=== PATIENT | female | born 1960 | race Caucasian/White ===

== ENCOUNTER → 2017-12-30 10:37 | Outpatient (CLI) | payer MEDICAID, SELFPAY ==
--- NOTE | 2017-12-30 10:40 | BI_ITS ---
MAMMOGRAPHY - BILATERAL SCREENING REASON FOR EXAM: Female, 57 years old. Routine annual screening examination. PERTINENT HISTORY: Sister with breast cancer. TECHNIQUE: Digital bilateral breast norman (3D mammographic acquisition) in the CC and MLO projections. 2-D mediolateral oblique (MLO) and craniocaudad (CC) views of both breasts were obtained. CAD: Full Field Digital Mammography with Computer Added Detection was performed. COMPARISON: Comparison is made with prior study dated October 09, 2016 and October 02, 2015. FINDINGS: Breast Composition: The breasts are almost entirely fatty. There are no dominant masses or suspicious calcifications. No other significant abnormalities are identified. There has been no significant change since the prior study. BI/SCREENING MAMM (CAD), BILAT IMPRESSION: Stable bilateral screening mammogram. Yearly follow-up mammogram recommended. (A) ASSESSMENT CATEGORY: BIRADS Category 1: Negative. A letter regarding these results will be sent to the patient by the facility within 30 days. Approximately 10% of breast cancers are not detected by mammography. A normal mammogram should not delay biopsy of a clinically suspicious abnormality. [id number] Electronically Signed: David Bailon MD at 12:09 EDT Tel [phone], Service support ,
== END ==
PROVIDERS: Family Provider Family Medicine; PCP Family Medicine; Visit Provider Family Medicine
DX: Z12.31 Encounter for screening mammogram for malignant neoplasm of breast (principal)
CPT/HCPCS: 77063; 77067

== ENCOUNTER 2018-04-21 10:45 | Outpatient (RCR) | payer MEDICAID, SELFPAY ==
[2018-04-07 10:24] VITALS: BP 118/87; PULSE 86; RESP 20; TEMP 35.9; BMI 27.8
--- NOTE | 2018-04-07 12:43 | PCM.WC.HP ---
(1) Ulcer of right lower extremity with fat layer exposed Status: Acute Current Visit: Yes Code(s): L97.912 - Non-pressure chronic ulcer of unspecified part of right lower leg with fat layer exposed (2) Pain in right lower leg Status: Acute Current Visit: Yes Code(s): M79.661 - Pain in right lower leg (3) PVD (peripheral vascular disease) Status: Suspected Current Visit: Yes Code(s): I73.9 - Peripheral vascular disease, unspecified (4) Edema, lower extremity Status: Acute Current Visit: Yes Code(s): R60.0 - Localized edema (5) Delayed wound healing Status: Acute Current Visit: Yes Code(s): T14.8XXD - Other injury of unspecified body region, subsequent encounter History of Present Illness Date of Service: 04/07/18 Chief Complaint: Right anterior lower leg ulcer/laceration History of Wound: This 57-year-old female was referred to the wound healing center by her primary care doctor for a nonhealing ulcer/laceration to the right anterior lower leg. Patient says this started approximately 3 weeks ago when she shut the car door and it created a laceration to her right lower leg. She said she tried to dress the area with Neosporin and bandages. She continued to notice the area not healing as well as some slight redness and she made an appointment to see her primary care doctor. She was started on antibiotics and has since finished prescriptions for Bactrim and cephalexin. Patient is also been using mupirocin topically to the area. She says that the area is not as red as it used to be, but that the area is still painful. She denies any purulence or extending cellulitis. She also denies any feeling of nausea, vomiting, fever, chills. Past Medical History Allergies/Adverse Reactions: Allergies bee venom protein (honey bee) Allergy (Verified 04/07/18 10:56) Shortness of breath naproxen [From Aleve] Adverse Reaction (Verified 04/07/18 10:56) Rash Home Medications: Ambulatory Orders Medication Instructions Recorded Albuterol IH (ProAir) [Proair Hfa 2 puff INHALATION Q4H PRN PRN 04/07/18 (SP)Vent Pts] Amlodipine [Norvasc] 5 mg PO DAILY 04/07/18 Aspirin E.C. [Ecotrin] 81 mg PO DAILY@0800 04/07/18 Atorvastatin Calcium [Lipitor] 10 mg PO QHS 04/07/18 Baclofen 20 mg PO 04/07/18 Benazepril HCl [Lotensin] 20 mg PO 04/07/18 Bupropion HCl 75 mg PO 04/07/18 Epinephrine [Epi Pen] 0.3 mg 04/07/18 Gabapentin [Neurontin] 400 mg PO 04/07/18 Ibuprofen 800 mg PO 04/07/18 Mupirocin [Bactroban] 1 applic TOPICAL TID 04/07/18 Omeprazole [Prilosec] 20 mg PO DAILY 04/07/18 Oxybutynin [Ditropan] 5 mg PO DAILY 04/07/18 Ropinirole HCl [Requip] BID 04/07/18 Symbicort 160/4.5 Mcg Inhaler (SP) 04/07/18 Tiotropium [place] [Spiriva] 18 mcg IH 04/07/18 Smoking Status: Current every day smoker Review of Systems Constitutional: Denies: Chills, Fever, Weight Change Cardiovascular: Denies: Chest Pain, Palpitations Respiratory: Denies: Cough, Shortness of Breath Gastrointestinal: Denies: Diarrhea, Nausea, Vomiting Musculoskeletal: Reports: Leg Pain Skin: Reports: Wounds - Physical Exam Vital Signs Temp Pulse Resp BP 96.6 F L 86 20 H 118/87 H 04/07/18 10:24 04/07/18 10:24 04/07/18 10:24 04/07/18 10:24 General: Alert, Oriented x3, Cooperative, No apparent distress Extremities: No cyanosis, Capillary Refill Less than 3 Seconds - To the distal digits of the right foot, No Calf Tenderness - Negative Hyun and Bloom sign, Diminished Peripheral Pulses - DP pulses nonpalpable and PT pulses palpable, Edema - Minor lower extremity edema Skin: Ulcer/ Wound - Ulcer with fat layer exposed to the right anterior lower leg. Measurements are noted below. The base is a mixture of necrotic tissue/eschar, fibrin, adherent slough, granular tissue. There is no purulence, no extending cellulitis, no significant increase in warmth, no malodor, no probing to bone, no tracking, no undermining. Wound Measurements and Assessment WC - Nurse 1 - General Ulcer Measurement Start: 04/07/18 10:21 Freq: Status: Active Protocol: Activity Type Activity Date Activity User E-Sign Co-Sign Detail Recorded Client Recorded Date Recorded By Document 04/07/18 10:24 DL [id number] 04/07/18 10:50 DL 04/07/18 10:24 Wound Center Nurse 1 [Ulcer Assessment] #1 R Rubin -Current Size (cm) - Length 3.7 -Current Size (cm) - Width 3.1 -Current Size (cm) - Depth 0.2 -Total Square Cm 11.47 -Photo Taken Yes -Epithelialization None Present -Classification - Thickness Full Thickness without Exposed Support Structure -Exudate Amt Small (1-33%) -Exudate Type Serosanguineous -Wound Margin Thickened -Granulation Amt None Present (0 %) -Necrosis Amt Large (67-100%) -Necrotic Tissue Type Eschar -Structure Exposed N/A -Texture (Vivian-wound Skin Appearance) Localized Edema Scarring -Moisture (Vivian-wound Skin Appearance Dry/Scaly ) -Color (Vivian-wound Skin Appearance) Erythema -Temperature (Vivian-wound Skin No Abnormality Appearance) (Pt Warm) -Tenderness on Palpation (Vivian-wound Yes Skin Appearance) -Ulcer Cleansing Wound Cleanser -Foul Odor after Cleansing No -Anesthetic Used 5% Lidocaine Gel [Edema Assessment] -Right Calf (cm) 32.5 -Right Ankle (cm) 19 -Left Calf (cm) 33.8 -Left Ankle (cm) 18.5 WC - Nurse 2 - General Ulcer CM Notes Start: 04/07/18 10:21 Freq: Status: Active Protocol: Activity Type Activity Date Activity User E-Sign Co-Sign Detail Recorded Client Recorded Date Recorded By Document 04/07/18 11:20 DV [id number] 04/07/18 11:36 DV 04/07/18 11:20 Wound Center Nurse 2 [Procedure/Treatment] #1 R Rubin -Time 11:21 -Correct Patient Yes -Correct Side, Site, Position Yes -Correct Procedure Yes -Procedure Performed Yes -Type of Procedure Debridement -Clinical Debridement Subcutaneous -Post Debridement Size (cm) - Length 4.0 -Post Debridement Size (cm) - Width 3.0 -Post Debridement Size (cm) - Depth 0.2 -Total Square Cm 12.00 -Wound/Ulcer Outcome Not Healed -Ulcer Cleansing Rinsed/ Irrigated with Saline -Foul Odor after Cleansing No -Bleeding Controlled with Pressure -Treatment Response Procedure Tolerated Well [See Physician Procedure note for Specifics] Pain Scale: 0-10 Numeric [Pain] -Is Patient Pain Free? Yes Musculoskeletal: Tenderness - With manipulation of ulcer site Neurological: Sensory exam intact to light touch and pain Psych/Mental Status: Normal Affect, Appropriate Debridement Note Post-Debridement Measurements/Treatment WC - Nurse 2 - General Ulcer CM Notes Start: 04/07/18 10:21 Freq: Status: Active Protocol: Activity Type Activity Date Activity User E-Sign Co-Sign Detail Recorded Client Recorded Date Recorded By Document 04/07/18 11:20 DV [id number] 04/07/18 11:36 DV 04/07/18 11:20 Wound Center Nurse 2 #1 R Rubin -Time 11:21 -Correct Patient Yes -Correct Side, Site, Position Yes -Correct Procedure Yes -Procedure Performed Yes -Type of Procedure Debridement -Clinical Debridement Subcutaneous -Post Debridement Size (cm) - Length 4.0 -Post Debridement Size (cm) - Width 3.0 -Post Debridement Size (cm) - Depth 0.2 -Total Square Cm 12.00 -Wound/Ulcer Outcome Not Healed -Ulcer Cleansing Rinsed/ Irrigated with Saline -Foul Odor after Cleansing No -Bleeding Controlled with Pressure -Treatment Response Procedure Tolerated Well Pain Scale: 0-10 Numeric Is Patient Pain Free? Yes Wound debrided: Right anterior lower leg Laterality: Right Type of Debridement: Excisional debridement Anesthesia Used: 4% Lidocaine Solution, - - 5 cc 1% lidocaine with epinephrine injected Depth: in the subcutaneous layer Percentage of wound debrided: 100 Instrument Used: 7mm curette, #15 blade, Forceps Tissue Removed: Necrotic tissue/eschar, adherent slough, fibrin Severity: Fat Layer Exposed Amount of bleeding with debridement: Mild Bleeding Controlled with: Pressure Patient tolerated procedure well Assessment/Plan Active Problems Ulcer of right lower extremity with fat layer exposed (Acute) Pain in right lower leg (Acute) Edema, lower extremity (Acute) Delayed wound healing (Acute) Assessment: Ulcer right anterior lower leg. Pain right lower leg. Edema lower extremity. Other comorbidities Plan: Initial patient examination and evaluation was performed. A subcutaneous debridement was performed as noted in the clinical panel. Once complete the ulcer site was carefully cleansed with normal sterile saline, and then cultures were taken and sent for aerobic, anaerobic, and MRSA PCR evaluation. Next, the ulcer site was dressed with Aquacel Ag, followed by dry sterile dressing and Tubigrip for compression. Patient is to change her dressing in this manner daily. Keeping pressure off of the ulcer site was discussed lizett in great detail. Baseline lab work was ordered today, including CBC with differential, CMP, prealbumin, hemoglobin A1c. LEAS and venous Doppler exams were also ordered. These results will be reviewed at the patient's follow-up visit. Dressing supplies were ordered for this patient. I also recommend nutritional supplementation with a high-protein diet in order to optimize ulcer healing potential. The patient was educated on all signs and symptoms of local and systemic infection and she is to go to the emergency room immediately should she notice any of these. All questions were answered to the patient's satisfaction. Smoking cessation was discussed. The patient will follow-up in clinic in 1 week to check on progress, or sooner if needed.
[2018-04-07 13:12] LABS: Absolute Lymphocyte Count 1.41 X10^3/ul (0.83-4.51); Absolute Neutrophil Count 3.6 X10^3/uL (2.0-7.7); Basophil# 0.02 X10^3/uL; Basophil% 0.4 % (0-1); Eosinophil# 0.09 X10^3/uL; Eosinophils% 1.6 % (0-5); Hematocrit 49.8 % (37-47); Hemoglobin 16.7 g/dl (12.0-15.0); Lymphocyte # 1.41 X10^3/ul (4.0); Lymphocyte % 25.1 % (19-41); Mean Corp Hgb Conc 33.5 g/gl (32-36); Mean Corpuscular Hgb 32.2 pg (27.0-32.0); Mean Corpuscular Volume 96.1 fL (81-99); Mean Platelet Vol. 11.3 fl (6.2-12.0); Monocyte# 0.52 X10^3/uL; Monocyte% 9.3 % (0-10); Neutrophil # 3.58 X10^3/uL (2.7-7.7); Neutrophil % 63.6 % (47-70); Platelet Count 165 K/mm3 (150-450); RBC Distribution Width CV 14.4 % (11.6-14.6); RBC Distribution Width SD 50.7 fl (35.1-43.9); Red Blood Count 5.18 M/mm3 (4.2-5.4); White Blood Count 5.6 K/mm3 (4.4-11.0)
[2018-04-07 13:13] LABS: POSITIVE COUNT NO; POSITIVE DIFFERENTIAL NO; POSITIVE MORPHOLOGY NO
[2018-04-07 13:32] LABS: AST(SGOT) 17 U/L (15-37); Alanine Aminotransfer ALT/SGPT 25 U/L (13-56); Albumin, Serum 3.6 g/dL (3.2-5.0); Alkaline Phosphatase 79 U/L (45-117); Anion Gap 9 (5-15); BUN 13 mg/dL (7-18); BUN/Creat Ratio 13.6 RATIO (10-20); Chloride 102 mmol/L (98-107); Creatinine, Serum 0.96 mg/dL (0.55-1.02); EST Glomerular Filtration Rate 64 mL/min (>60); Est Glom Filt Rate - Afr Amer 78 mL/min (>60); Globulin 3.5 g/dL (2.2-4.2); Glucose 78 mg/dL (74-106); Potassium 4.4 mmol/L (3.5-5.1); Prealbumin 21.4 mg/dL (20.0-40.0); Protein, Total 7.1 g/dL (6.4-8.2); Sodium Level 137 mmol/L (136-145)
[2018-04-07 13:33] LABS: Hemoglobin A1c 5.5 % (4.2-6.3)
[2018-04-07 16:25] LABS: M R Staph aureus DNA By PCR Negative (Negative); Probe Check PASS; Specimen Processing Control PASS; Staph aureus DNA By PCR NEGATIVE (Negative)
--- NOTE | 2018-04-14 13:34 | PN.PCM_ITS ---
(1) Ulcer of right lower extremity with fat layer exposed Status: Acute Current Visit: Yes Code(s): L97.912 - Non-pressure chronic ulcer of unspecified part of right lower leg with fat layer exposed (2) Pain in right lower leg Status: Acute Current Visit: Yes Code(s): M79.661 - Pain in right lower leg (3) PVD (peripheral vascular disease) Status: Suspected Current Visit: Yes Code(s): I73.9 - Peripheral vascular disease, unspecified (4) Edema, lower extremity Status: Acute Current Visit: Yes Code(s): R60.0 - Localized edema (5) Delayed wound healing Status: Acute Current Visit: Yes Code(s): T14.8XXD - Other injury of unspecified body region, subsequent encounter Type of Wound Chief Complaint: Right anterior lower leg ulcer/laceration History of Wound: This 57-year-old female was referred to the wound healing center by her primary care doctor for a nonhealing ulcer/laceration to the right anterior lower leg. Patient says this started approximately 3 weeks ago when she shut the car door and it created a laceration to her right lower leg. She said she tried to dress the area with Neosporin and bandages. She continued to notice the area not healing as well as some slight redness and she made an appointment to see her primary care doctor. She was started on antibiotics and has since finished prescriptions for Bactrim and cephalexin. Patient is also been using mupirocin topically to the area. She says that the area is not as red as it used to be, but that the area is still painful. She denies any purulence or extending cellulitis. She also denies any feeling of nausea, vomiting, fever, chills. Progress of Wound: Slight improvement noted noted week. Has been changing dressing daily. Denies any signs of infection. Denies nausea, vomiting, fever, or chills. - Physical Exam Vital Signs Temp Pulse Resp BP 96.6 F L 86 20 H 118/87 H 04/07/18 10:24 04/07/18 10:24 04/07/18 10:24 04/07/18 10:24 General: Alert, Oriented x3, Cooperative, No apparent distress Extremities: No cyanosis - Negative Hyun and Bloom sign, Capillary Refill Less than 3 Seconds, No Calf Tenderness, Diminished Peripheral Pulses - DP pulses nonpalpable and PT pulses palpable bilateral, Edema - Slight lower extremity edema Skin: Ulcer/ Wound - Ulcer with fat layer exposed to the right anterior lower leg. Measurements are noted below. The base is a mixture of fibrin, adherent slough, granular tissue, and some surrounding hyperkeratotic tissue. There is no purulence, no extending cellulitis, no significant increase in warmth, no malodor, no probing to bone, no tracking, no undermining. Wound Measurements and Assessment WC - Nurse 2 - General Ulcer CM Notes Start: 04/07/18 10:21 Freq: Status: Active Protocol: Activity Type Activity Date Activity User E-Sign Co-Sign Detail Recorded Client Recorded Date Recorded By Document 04/14/18 11:08 DV [id number] 04/14/18 11:14 DV 04/14/18 11:08 Wound Center Nurse 2 [Procedure/Treatment] #1 R Rubin -Time 11:11 -Correct Patient Yes -Correct Side, Site, Position Yes -Correct Procedure Yes -Procedure Performed Yes -Type of Procedure Debridement -Clinical Debridement Subcutaneous -Post Debridement Size (cm) - Length 3.5 -Post Debridement Size (cm) - Width 2.8 -Post Debridement Size (cm) - Depth 0.2 -Total Square Cm 9.80 -Wound/Ulcer Outcome Not Healed -Ulcer Cleansing Rinsed/ Irrigated with Saline -Foul Odor after Cleansing No -Bioengineered Tissue No -Bleeding Controlled with Pressure -Treatment Response Procedure Tolerated Well [See Physician Procedure note for Specifics] Pain Scale: 0-10 Numeric [Pain] -Is Patient Pain Free? Yes Musculoskeletal: Tenderness - With manipulation of ulcer site Neurological: Sensory exam intact to light touch and pain Psych/Mental Status: Normal Affect, Appropriate Debridement Note Post-Debridement Measurements/Treatment - Nurse 2 - General Ulcer CM Notes Start: 04/07/18 10:21 Freq: Status: Active Protocol: Activity Type Activity Date Activity User E-Sign Co-Sign Detail Recorded Client Recorded Date Recorded By Document 04/07/18 11:20 DV [id number] 04/07/18 11:36 DV Document 04/14/18 11:08 DV [id number] 04/14/18 11:14 DV 04/07/18 04/14/18 11:20 11:08 Wound Center Nurse 2 #1 R Rubin -Time 11:21 11:11 -Correct Patient Yes Yes -Correct Side, Site, Position Yes Yes -Correct Procedure Yes Yes -Procedure Performed Yes Yes -Type of Procedure Debridement Debridement -Clinical Debridement Subcutaneous Subcutaneous -Post Debridement Size (cm) - Length 4.0 3.5 -Post Debridement Size (cm) - Width 3.0 2.8 -Post Debridement Size (cm) - Depth 0.2 0.2 -Total Square Cm 12.00 9.80 -Wound/Ulcer Outcome Not Healed Not Healed -Ulcer Cleansing Rinsed/ Rinsed/ Irrigated with Irrigated with Saline Saline -Foul Odor after Cleansing No No -Bioengineered Tissue No -Bleeding Controlled with Pressure Pressure -Treatment Response Procedure Procedure Tolerated Well Tolerated Well Pain Scale: 0-10 Numeric Is Patient Pain Free? Yes Yes Wound debrided: Right anterior lower leg Laterality: Right Type of Debridement: Excisional debridement Anesthesia Used: 4% Lidocaine Solution Depth: in the subcutaneous layer Percentage of wound debrided: 100 Instrument Used: 7mm curette Tissue Removed: adherent slough, fibrin, hyperkeratotic tissue Severity: Fat Layer Exposed Amount of bleeding with debridement: Mild Bleeding Controlled with: Pressure Patient tolerated procedure well Assessment/Plan Active Problems Ulcer of right lower extremity with fat layer exposed (Acute) Pain in right lower leg (Acute) Edema, lower extremity (Acute) Delayed wound healing (Acute) Assessment: Ulcer right anterior lower leg. Pain right lower leg. Edema lower extremity. Other comorbidities Plan: Patient was examined and evaluated again today. A subcutaneous debridement was performed as noted in the clinical panel. Once complete the ulcer site was carefully cleansed with normal sterile saline, and then dressed with Aquacel Ag, followed by dry sterile dressing and Tubigrip for compression. Patient is to change her dressing in this manner daily. Her culture results were reviewed prior to her visit today. Keeping pressure off of the ulcer site was discussed lizett in great detail. Baseline lab work including CBC with differential, CMP, prealbumin, hemoglobin A1c was reviewed prior to patient's visit. LEAS and venous Doppler exams were also ordered last week and will be completed on 18 April. These results will be reviewed at the patient's follow-up visit. I also recommend nutritional supplementation with a high- protein diet in order to optimize ulcer healing potential. The patient was educated on all signs and symptoms of local and systemic infection and she is to go to the emergency room immediately should she notice any of these. All questions were answered to the patient's satisfaction. Smoking cessation was discussed. The patient will follow-up in clinic in 1 week to check on progress, or sooner if needed.
--- NOTE | 2018-04-18 09:54 | VDLE_ITS ---
[id number] VL^VDU^Venous Duplex US - Ramirez Extrem [id number] [facility] Venous Doppler [address] [place], [place] [id number] Ordering Physician: Deacon Rodriguez TAG_ENDED TAG_START Name: CRUZ CLEMENS Study Date: 04/18/2018 10:02 AM Patient Location: [facility] : 1960 Gender: Female Age: 57 yrs TAG_ENDED Reason For Study: Rt jurado ulcer RIGHT LEFT CFV is compressible, spontaneous, phasic, CFV is compressible, spontaneous, phasic, competent and demonstrates normal competent, and demonstrates normal augmentation. augmentation. FV is compressible, spontaneous, phasic, FV is compressible, spontaneous, phasic, competent and demonstrates normal competent and demonstrates normal augmentation. augmentation. POP V is compressible, spontaneous, phasic, POP V is compressible, spontaneous, phasic, competent and demonstrates normal competent and demonstrates normal augmentation. augmentation. T/P Trunk is compressible. T/P Trunk is compressible. PTV is compressible. PTV is compressible. RT PerV is compressible. LT PerV is compressible. SFJ is competent. SFJ is competent. GSV is competent throughout. GSV is INCOMPETENT thoughout for greater than SSV is competent. 0.5 seconds with a diameter of 0.20 x 0.20 Procedure cm. Exam performed in department. SSV is INCOMPETENT for greater than 0.5 A preliminary report was called and/or faxed seconds with a diameter of 0.19 x 0.25 cm. to WC. <> Interpretation Summary Deep veins of the lower extremities are bilaterally patent and compressible segmentally. There is no evidence of deep vein thrombosis on either side. Valvular competence appears intact within the proximal deep venous systems bilaterally. The greater saphenous veins appear bilaterally patent and compressible segmentally. Sapheno-femoral junctions are bilaterally competent . The right greater saphenous vein appears segmentally competent. The left greater saphenous vein appears segmentally incompetent. The right small saphenous vein is patent and competent. The left small saphenous vein is patent and incompetent. TAG_[facility] TAG_ENDED Ordering Physician: Deacon Rodriguez Referring Physician: Tex Martínez Performed By: Alena Brooks RVT and Student
[2018-04-21 10:38] VITALS: BP 132/94; PULSE 99; RESP 16; TEMP 36.3; BMI 27.8
--- NOTE | 2018-04-21 12:57 | PN.PCM_ITS ---
(1) Ulcer of right lower extremity with fat layer exposed Status: Acute Current Visit: Yes Code(s): L97.912 - Non-pressure chronic ulcer of unspecified part of right lower leg with fat layer exposed (2) Pain in right lower leg Status: Acute Current Visit: Yes Code(s): M79.661 - Pain in right lower leg (3) PVD (peripheral vascular disease) Status: Suspected Current Visit: Yes Code(s): I73.9 - Peripheral vascular disease, unspecified (4) Edema, lower extremity Status: Acute Current Visit: Yes Code(s): R60.0 - Localized edema (5) Delayed wound healing Status: Acute Current Visit: Yes Code(s): T14.8XXD - Other injury of unspecified body region, subsequent encounter Type of Wound Chief Complaint: Right anterior lower leg ulcer/laceration History of Wound: This 57-year-old female was referred to the wound healing center by her primary care doctor for a nonhealing ulcer/laceration to the right anterior lower leg. Patient says this started approximately 3 weeks ago when she shut the car door and it created a laceration to her right lower leg. She said she tried to dress the area with Neosporin and bandages. She continued to notice the area not healing as well as some slight redness and she made an appointment to see her primary care doctor. She was started on antibiotics and has since finished prescriptions for Bactrim and cephalexin. Patient is also been using mupirocin topically to the area. She says that the area is not as red as it used to be, but that the area is still painful. She denies any purulence or extending cellulitis. She also denies any feeling of nausea, vomiting, fever, chills. Progress of Wound: Improving. Has been changing dressing daily. Denies any signs of infection. Denies nausea, vomiting, fever, or chills. - Physical Exam Vital Signs Temp Pulse Resp BP 97.3 F L 99 16 132/94 H 04/21/18 10:38 04/21/18 10:38 04/21/18 10:38 04/21/18 10:38 General: Alert, Oriented x3, Cooperative, No apparent distress Extremities: Capillary Refill Less than 3 Seconds, No Calf Tenderness - Negative Hyun and Bloom sign, Diminished Peripheral Pulses - DP pulses nonpalpable bilateral and PT pulses palpable bilateral, Edema - Slight lower extremity edema Skin: Ulcer/ Wound - Ulcer with fat layer exposed to the right anterior lower leg. Measurements are noted below. The base is a mixture of fibrin, adherent slough, granular tissue, and some surrounding hyperkeratotic tissue. There is no purulence, no extending cellulitis, no significant increase in warmth, no malodor, no probing to bone, no tracking, no undermining. Wound Measurements and Assessment WC - Nurse 1 - General Ulcer Measurement Start: 04/07/18 10:21 Freq: Status: Active Protocol: Activity Type Activity Date Activity User E-Sign Co-Sign Detail Recorded Client Recorded Date Recorded By Document 04/21/18 10:38 [facility] [id number] 04/21/18 10:43 [facility] 04/21/18 10:38 Wound Center Nurse 1 [Ulcer Assessment] #1 R Rubin -Combined with other wound No -Current Size (cm) - Length 3.5 -Current Size (cm) - Width 2.7 -Current Size (cm) - Depth 0.2 -Total Square Cm 9.45 -Photo Taken No -Epithelialization None Present -Tunneling No -Undermining/Tunneling No -Circular Undermining No -Exudate Amt Small (1-33%) -Exudate Type Serosanguineous -Wound Margin Distinct, Outline Attached -Granulation Amt Medium (34-66%) -Granulation Quality Red -Slough/Fibrin Yes -Necrosis Amt Medium (34-66%) -Necrotic Tissue Type Adherent Slough -Texture (Vivian-wound Skin Appearance) Scarring -Moisture (Vivian-wound Skin Appearance Dry/Scaly ) -Color (Vivian-wound Skin Appearance) Assessed -Temperature (Vivian-wound Skin No Abnormality Appearance) (Pt Warm) -Tenderness on Palpation (Vivian-wound Yes Skin Appearance) -Ulcer Cleansing Rinsed/ Irrigated with Saline -Foul Odor after Cleansing No -Anesthetic Used 4% Lidocaine Solution 5% Lidocaine Gel [Edema Assessment] -Lower Limb Edema Present No -Right Calf (cm) 33 -Right Ankle (cm) 19 WC - Nurse 2 - General Ulcer CM Notes Start: 04/07/18 10:21 Freq: Status: Active Protocol: Activity Type Activity Date Activity User E-Sign Co-Sign Detail Recorded Client Recorded Date Recorded By Document 04/21/18 11:22 DV [id number] 04/21/18 11:23 DV 04/21/18 11:22 Wound Center Nurse 2 [Procedure/Treatment] #1 R Rubin -Time 11:22 -Correct Patient Yes -Correct Side, Site, Position Yes -Correct Procedure Yes -Procedure Performed Yes -Type of Procedure Debridement -Clinical Debridement Subcutaneous -Post Debridement Size (cm) - Length 3.5 -Post Debridement Size (cm) - Width 2.5 -Post Debridement Size (cm) - Depth 0.2 -Total Square Cm 8.75 -Wound/Ulcer Outcome Not Healed -Ulcer Cleansing Rinsed/ Irrigated with Saline -Foul Odor after Cleansing No -Bioengineered Tissue No -Bleeding Controlled with Pressure -Treatment Response Procedure Tolerated Well [See Physician Procedure note for Specifics] Pain Scale: 0-10 Numeric [Pain] -Is Patient Pain Free? Yes Musculoskeletal: Tenderness - With manipulation of ulcer site Neurological: Sensory exam intact to light touch and pain Psych/Mental Status: Normal Affect, Appropriate Debridement Note Post-Debridement Measurements/Treatment WC - Nurse 2 - General Ulcer CM Notes Start: 04/07/18 10:21 Freq: Status: Active Protocol: Activity Type Activity Date Activity User E-Sign Co-Sign Detail Recorded Client Recorded Date Recorded By Document 04/07/18 11:20 DV [id number] 04/07/18 11:36 DV Document 04/14/18 11:08 DV [id number] 04/14/18 11:14 DV Document 04/21/18 11:22 DV [id number] 04/21/18 11:23 DV 04/07/18 04/14/18 04/21/18 11:20 11:08 11:22 Wound Center Nurse 2 #1 R Rubin -Time 11:21 11:11 11:22 -Correct Patient Yes Yes Yes -Correct Side, Site, Position Yes Yes Yes -Correct Procedure Yes Yes Yes -Procedure Performed Yes Yes Yes -Type of Procedure Debridement Debridement Debridement -Clinical Debridement Subcutaneous Subcutaneous Subcutaneous -Post Debridement Size (cm) - Length 4.0 3.5 3.5 -Post Debridement Size (cm) - Width 3.0 2.8 2.5 -Post Debridement Size (cm) - Depth 0.2 0.2 0.2 -Total Square Cm 12.00 9.80 8.75 -Wound/Ulcer Outcome Not Healed Not Healed Not Healed -Ulcer Cleansing Rinsed/ Rinsed/ Rinsed/ Irrigated with Irrigated with Irrigated with Saline Saline Saline -Foul Odor after Cleansing No No No -Bioengineered Tissue No No -Bleeding Controlled with Pressure Pressure Pressure -Treatment Response Procedure Procedure Procedure Tolerated Well Tolerated Well Tolerated Well Pain Scale: 0-10 Numeric Is Patient Pain Free? Yes Yes Yes Wound debrided: Right anterior lower leg Laterality: Right Type of Debridement: Excisional debridement Anesthesia Used: 4% Lidocaine Solution, - - 5 cc 2% lidocaine plain Depth: in the subcutaneous layer Percentage of wound debrided: 100 Instrument Used: 7mm curette Tissue Removed: adherent slough, fibrin, hyperkeratotic tissue Severity: Fat Layer Exposed Amount of bleeding with debridement: Mild Bleeding Controlled with: Pressure Patient tolerated procedure well Assessment/Plan Active Problems Ulcer of right lower extremity with fat layer exposed (Acute) Pain in right lower leg (Acute) Edema, lower extremity (Acute) Delayed wound healing (Acute) Assessment: Ulcer right anterior lower leg. Pain right lower leg. Edema lower extremity. Other comorbidities Plan: Patient was examined and evaluated again today. A subcutaneous debridement was performed as noted in the clinical panel. Once complete the ulcer site was carefully cleansed with normal sterile saline, and then dressed with Aquacel Ag, followed by dry sterile dressing and Tubigrip for compression. Patient is to change her dressing in this manner daily. Her culture results were reviewed prior to her visit today. Keeping pressure off of the ulcer site was discussed lizett in great detail. Baseline lab work including CBC with differential, CMP, prealbumin, hemoglobin A1c was reviewed prior to patient's visit. LEAS and venous Doppler exams completed and results reviewed showing the patient has sufficient blood flow. I also recommend nutritional supplementation with a high-protein diet in order to optimize ulcer healing potential. The patient was educated on all signs and symptoms of local and systemic infection and she is to go to the emergency room immediately should she notice any of these. All questions were answered to the patient's satisfaction. Smoking cessation was discussed. The patient will follow-up in clinic in 1 week to check on progress, or sooner if needed.
--- NOTE | 2018-04-21 19:47 | LEAS ---
Arterial Study - Arterial Study Arterial Study: This is a 57-year-old female with a history of peripheral arterial occlusive disease and smoking. The patient presents with a chronic nonhealing wound of the right lower extremity. She is brought to the noninvasive vascular laboratory at this time for the purpose of bilateral noninvasive lower extremity arterial assessment. Doppler signal assessment was used to evaluate the pulses at ankle level bilaterally. The posterior tibial and dorsalis pedis pulses were triphasic bilaterally. Segmental limb pressures were obtained bilaterally. The right ankle pressure, as determined by posterior tibial pulse, was measured at 148 mmHg. The right ankle pressure, as determined by dorsalis pedis pulse, was measured at 147 mmHg. The right digital pressure was measured at 91 mmHg. The left ankle pressure, as determined by posterior tibial pulse, was measured at 140 mmHg. The left ankle pressure, as determined by dorsalis pedis pulse, was measured at 141 mmHg. The left digital pressure was measured at 129 mmHg. Pulse?volume recordings were obtained bilaterally and segmentally. Waveform amplitudes appeared to be satisfactory at low thigh, calf, and ankle levels bilaterally. Digital waveforms appeared to be diminished bilaterally. Resting ankle?brachial indices were calculated bilaterally. The resting right ankle?brachial index was calculated to be 1.08. The resting left ankle?brachial index was calculated to be 1.03. Digital?brachial indices were calculated bilaterally. The right digital-brachial index was calculated to be 0.66. The left digital-brachial index was calculated to be 0.94. Impression: Based upon the findings of this resting noninvasive lower extremity arterial study, arterial perfusion to ankle level appears to be normal bilaterally. Triphasic waveforms are noted at ankle level bilaterally. Resting ankle?brachial indices are bilaterally normal. The right digital-brachial index is mildly diminished, suggesting the presence of mild, distal, small?vessel arterial occlusive disease in the right lower extremity. The left digital-brachial index appears normal, suggesting relatively normal arterial perfusion at digital level in the left lower extremity.
--- NOTE | 2018-04-21 19:54 | LEAS_ITS ---
Arterial Study - Arterial Study Arterial Study: This is a 57-year-old female with a history of peripheral arterial occlusive disease and smoking. The patient presents with a chronic nonhealing wound of the right lower extremity. She is brought to the noninvasive vascular laboratory at this time for the purpose of bilateral noninvasive lower extremity arterial assessment. Doppler signal assessment was used to evaluate the pulses at ankle level bilaterally. The posterior tibial and dorsalis pedis pulses were triphasic bilaterally. Segmental limb pressures were obtained bilaterally. The right ankle pressure, as determined by posterior tibial pulse, was measured at 148 mmHg. The right ankle pressure, as determined by dorsalis pedis pulse, was measured at 147 mmHg. The right digital pressure was measured at 91 mmHg. The left ankle pressure, as determined by posterior tibial pulse, was measured at 140 mmHg. The left ankle pressure, as determined by dorsalis pedis pulse, was measured at 141 mmHg. The left digital pressure was measured at 129 mmHg. Pulse?volume recordings were obtained bilaterally and segmentally. Waveform amplitudes appeared to be satisfactory at low thigh, calf, and ankle levels bilaterally. Digital waveforms appeared to be diminished bilaterally. Resting ankle?brachial indices were calculated bilaterally. The resting right ankle?brachial index was calculated to be 1.08. The resting left ankle?brachial index was calculated to be 1.03. Digital?brachial indices were calculated bilaterally. The right digital- brachial index was calculated to be 0.66. The left digital-brachial index was calculated to be 0.94. Impression: Based upon the findings of this resting noninvasive lower extremity arterial study, arterial perfusion to ankle level appears to be normal bilaterally. Triphasic waveforms are noted at ankle level bilaterally. Resting ankle?brachial indices are bilaterally normal. The right digital-brachial index is mildly diminished, suggesting the presence of mild, distal, small?vessel arterial occlusive disease in the right lower extremity. The left digital- brachial index appears normal, suggesting relatively normal arterial perfusion at digital level in the left lower extremity.
== END 2018-04-27 23:59 ==
LOC: WC 10:45
PROVIDERS: Family Provider Family Medicine; PCP Family Medicine; Referring Provider Podiatrist; Visit Provider Podiatrist
DX: I73.9 Peripheral vascular disease, unspecified (principal); R60.0 Localized edema; M79.661 Pain in right lower leg; Z79.82 Long term (current) use of aspirin; Z79.899 Other long term (current) drug therapy; L97.812 Non-pressure chronic ulcer of other part of right lower leg with fat layer exposed
CPT/HCPCS: 11042; 80053; 83036; 84134; 85025; 87070; 87075; 87205; 87640; 93923; 93970; 99203; G0463

== ENCOUNTER 2018-05-26 09:30 | Outpatient (RCR) | payer MEDICAID, SELFPAY ==
[2018-04-28 01:56] VITALS: BP 132/94; PULSE 99; RESP 16; TEMP 36.3
[2018-04-28 09:47] VITALS: BP 134/94; PULSE 98; RESP 18; TEMP 36.3
--- NOTE | 2018-04-28 13:05 | PN.PCM_ITS ---
(1) Ulcer of right lower extremity with fat layer exposed Status: Acute Current Visit: No Code(s): L97.912 - Non-pressure chronic ulcer of unspecified part of right lower leg with fat layer exposed (2) Pain in right lower leg Status: Acute Current Visit: No Code(s): M79.661 - Pain in right lower leg (3) Edema, lower extremity Status: Acute Current Visit: No Code(s): R60.0 - Localized edema (4) Delayed wound healing Status: Acute Current Visit: No Code(s): T14.8XXD - Other injury of unspecified body region, subsequent encounter Type of Wound Chief Complaint: Right anterior lower leg ulcer/laceration History of Wound: This 57-year-old female was referred to the wound healing center by her primary care doctor for a nonhealing ulcer/laceration to the right anterior lower leg. Patient says this started approximately 3 weeks ago when she shut the car door and it created a laceration to her right lower leg. She said she tried to dress the area with Neosporin and bandages. She continued to notice the area not healing as well as some slight redness and she made an appointment to see her primary care doctor. She was started on antibiotics and has since finished prescriptions for Bactrim and cephalexin. Patient is also been using mupirocin topically to the area. She says that the area is not as red as it used to be, but that the area is still painful. She denies any purulence or extending cellulitis. She also denies any feeling of nausea, vomiting, fever, chills. Progress of Wound: Slow improvement. Has been changing dressing daily. Denies any signs of infection. Denies nausea, vomiting, fever, or chills. - Physical Exam Vital Signs Temp Pulse Resp BP 97.4 F L 98 18 134/94 H 04/28/18 09:47 04/28/18 09:47 04/28/18 09:47 04/28/18 09:47 General: Alert, Oriented x3, Cooperative, No apparent distress Extremities: Capillary Refill Less than 3 Seconds, No Calf Tenderness - Negative Hyun and Bloom sign, Diminished Peripheral Pulses - DP pulses nonpalpable bilateral and PT pulses palpable bilateral, Edema - Slight lower extremity edema Skin: Ulcer/ Wound - Ulcer with fat layer exposed to the right anterior lower leg. Measurements noted below. Base continues to be a mixture of adherent slough, fibrin, granular tissue, as well as some slight surrounding hyperkeratotic tissue. There is no purulence, no extending cellulitis, no increase in warmth, no malodor, no probing to bone, no tracking, and no undermining. Wound Measurements and Assessment WC - Nurse 1 - General Ulcer Measurement Start: 04/28/18 09:46 Freq: Status: Active Protocol: Activity Type Activity Date Activity User E-Sign Co-Sign Detail Recorded Client Recorded Date Recorded By Document 04/28/18 09:[address] [facility] [id number] 04/28/18 09:50 BM 04/28/18 09:47 Wound Center Nurse 1 [Ulcer Assessment] #1 R Rubin -Combined with other wound No -Current Size (cm) - Length 3.2 -Current Size (cm) - Width 2 -Current Size (cm) - Depth 0.2 -Total Square Cm 6.4 -Photo Taken No -Tunneling No -Undermining/Tunneling No -Circular Undermining No -Exudate Amt Small (1-33%) -Exudate Type Serosanguineous -Wound Margin Distinct, Outline Attached -Granulation Amt Large (67-100%) -Granulation Quality Red -Slough/Fibrin Yes -Necrosis Amt Small (1-33%) -Necrotic Tissue Type Adherent Slough -Texture (Vivian-wound Skin Appearance) Scarring -Moisture (Vivian-wound Skin Appearance Dry/Scaly ) -Color (Vivian-wound Skin Appearance) Erythema Hemosiderin Staining -Temperature (Vivian-wound Skin No Abnormality Appearance) (Pt Warm) -Tenderness on Palpation (Vivian-wound Yes Skin Appearance) -Ulcer Cleansing Rinsed/ Irrigated with Saline -Foul Odor after Cleansing No -Anesthetic Used 4% Lidocaine Solution 5% Lidocaine Gel [Edema Assessment] -Lower Limb Edema Present Yes -Right Calf (cm) 33 -Right Ankle (cm) 20 WC - Nurse 2 - General Ulcer CM Notes Start: 04/28/18 09:46 Freq: Status: Active Protocol: Activity Type Activity Date Activity User E-Sign Co-Sign Detail Recorded Client Recorded Date Recorded By Document 04/28/18 10:20 DV [id number] 04/28/18 10:23 DV 04/28/18 10:20 Wound Center Nurse 2 [Procedure/Treatment] #1 R Rubin -Time 10:22 -Correct Patient Yes -Correct Side, Site, Position Yes -Correct Procedure Yes -Procedure Performed Yes -Type of Procedure Debridement -Clinical Debridement Subcutaneous -Post Debridement Size (cm) - Length 3.3 -Post Debridement Size (cm) - Width 2.5 -Post Debridement Size (cm) - Depth 0.2 -Total Square Cm 8.25 -Wound/Ulcer Outcome Not Healed -Ulcer Cleansing Rinsed/ Irrigated with Saline -Foul Odor after Cleansing No -Bioengineered Tissue No -Bleeding Controlled with Pressure -Treatment Response Procedure Tolerated Well [See Physician Procedure note for Specifics] Pain Scale: 0-10 Numeric [Pain] -Is Patient Pain Free? Yes Musculoskeletal: Tenderness - With manipulation of ulcer site Neurological: Sensory exam intact to light touch and pain Psych/Mental Status: Normal Affect, Appropriate Debridement Note Post-Debridement Measurements/Treatment WC - Nurse 2 - General Ulcer CM Notes Start: 04/28/18 09:46 Freq: Status: Active Protocol: Activity Type Activity Date Activity User E-Sign Co-Sign Detail Recorded Client Recorded Date Recorded By Document 04/28/18 10:20 DV [id number] 04/28/18 10:23 DV 04/28/18 10:20 Wound Center Nurse 2 #1 R Rubin -Time 10:22 -Correct Patient Yes -Correct Side, Site, Position Yes -Correct Procedure Yes -Procedure Performed Yes -Type of Procedure Debridement -Clinical Debridement Subcutaneous -Post Debridement Size (cm) - Length 3.3 -Post Debridement Size (cm) - Width 2.5 -Post Debridement Size (cm) - Depth 0.2 -Total Square Cm 8.25 -Wound/Ulcer Outcome Not Healed -Ulcer Cleansing Rinsed/ Irrigated with Saline -Foul Odor after Cleansing No -Bioengineered Tissue No -Bleeding Controlled with Pressure -Treatment Response Procedure Tolerated Well Pain Scale: 0-10 Numeric Is Patient Pain Free? Yes Wound debrided: Right anterior lower leg Laterality: Right Type of Debridement: Excisional debridement Anesthesia Used: 4% Lidocaine Solution, - - 5 cc 2% lidocaine plain Depth: in the subcutaneous layer Percentage of wound debrided: 100 Instrument Used: 7mm curette Tissue Removed: Adherent slough, fibrin, hyperkeratotic tissue Severity: Fat Layer Exposed Amount of bleeding with debridement: Mild Bleeding Controlled with: Pressure Patient tolerated procedure well Assessment/Plan Assessment: Ulcer right anterior lower leg. Pain right lower leg. Edema lower extremity. Other comorbidities Plan: Patient was examined and evaluated again today. A subcutaneous debridement was performed as noted in the clinical panel. Once complete the ulcer site was carefully cleansed with normal sterile saline, and then dressed with Aquacel Ag, followed by dry sterile dressing and Tubigrip for compression. Patient is to change her dressing in this manner daily. Her culture results were reviewed prior to her visit today. Keeping pressure off of the ulcer site was discussed lizett in great detail. Baseline lab work including CBC with differential, CMP, prealbumin, hemoglobin A1c was reviewed prior to patient's visit. LEAS and venous Doppler exams completed and results reviewed showing the patient has sufficient blood flow. I also recommend nutritional supplementation with a high-protein diet in order to optimize ulcer healing potential. We will apply for epifix for this patient. The patient was educated on all signs and symptoms of local and systemic infection and she is to go to the emergency room immediately should she notice any of these. All questions were answered to the patient's satisfaction. Smoking cessation was discussed. The patient will follow-up in clinic in 1 week to check on progress, or sooner if needed.
[2018-05-12 10:00] VITALS: BP 139/89; PULSE 103; RESP 18; TEMP 36
--- NOTE | 2018-05-12 10:53 | PCM.WC.PN ---
(1) Ulcer of right lower extremity with fat layer exposed Status: Acute Current Visit: No Code(s): L97.912 - Non-pressure chronic ulcer of unspecified part of right lower leg with fat layer exposed (2) Pain in right lower leg Status: Acute Current Visit: No Code(s): M79.661 - Pain in right lower leg (3) Edema, lower extremity Status: Acute Current Visit: No Code(s): R60.0 - Localized edema (4) Delayed wound healing Status: Acute Current Visit: No Code(s): T14.8XXD - Other injury of unspecified body region, subsequent encounter Type of Wound Chief Complaint: Right anterior lower leg ulcer/laceration History of Wound: This 57-year-old female was referred to the wound healing center by her primary care doctor for a nonhealing ulcer/laceration to the right anterior lower leg. Patient says this started approximately 3 weeks ago when she shut the car door and it created a laceration to her right lower leg. She said she tried to dress the area with Neosporin and bandages. She continued to notice the area not healing as well as some slight redness and she made an appointment to see her primary care doctor. She was started on antibiotics and has since finished prescriptions for Bactrim and cephalexin. Patient is also been using mupirocin topically to the area. She says that the area is not as red as it used to be, but that the area is still painful. She denies any purulence or extending cellulitis. She also denies any feeling of nausea, vomiting, fever, chills. Progress of Wound: Ulcer site improving. Has been changing dressing daily. Denies any signs of infection. Denies nausea, vomiting, fever, or chills. - Physical Exam Vital Signs Temp Pulse Resp BP 96.8 F L 103 H 18 139/89 H 05/12/18 10:00 05/12/18 10:00 05/12/18 10:00 05/12/18 10:00 General: Alert, Oriented x3, Cooperative, No apparent distress Extremities: Capillary Refill Less than 3 Seconds, No Calf Tenderness - Negative Hyun and Bloom sign, Diminished Peripheral Pulses - DP pulses nonpalpable bilateral PT pulses palpable bilateral, Edema - Slight lower extremity edema Skin: Ulcer/ Wound - Ulcer with fat layer exposed to right anterior lower leg. Measurements noted below. Improvement appreciated. Patient tends to be a mixture of adherent slough, fibrin, granular tissue, as well as some slight surrounding hyperkeratotic tissue. There continues to be no purulence, no extending cellulitis, no increase in warmth, no malodor, no probing to bone, no tracking, and no undermining. Wound Measurements and Assessment - Nurse 1 - General Ulcer Measurement Start: 04/28/18 09:46 Freq: Status: Active Protocol: Activity Type Activity Date Activity User E-Sign Co-Sign Detail Recorded Client Recorded Date Recorded By Document 05/12/18 10:00 [facility] [id number] 05/12/18 10:04 [facility] 05/12/18 10:00 Wound Center Nurse 1 [Ulcer Assessment] #1 R Rubin -Combined with other wound No -Current Size (cm) - Length 2.7 -Current Size (cm) - Width 2 -Current Size (cm) - Depth 0.1 -Total Square Cm 5.4 -Photo Taken No -Epithelialization Small 1-33% -Tunneling No -Undermining/Tunneling No -Circular Undermining No -Exudate Amt Small (1-33%) -Exudate Type Serosanguineous -Wound Margin Distinct, Outline Attached -Granulation Amt Medium (34-66%) -Granulation Quality Red -Slough/Fibrin Yes -Necrosis Amt Medium (34-66%) -Necrotic Tissue Type Adherent Slough -Texture (Vivian-wound Skin Appearance) Localized Edema Scarring -Moisture (Vivian-wound Skin Appearance Dry/Scaly ) -Color (Vivian-wound Skin Appearance) Hemosiderin Staining -Temperature (Vivian-wound Skin No Abnormality Appearance) (Pt Warm) -Tenderness on Palpation (Vivian-wound No Skin Appearance) -Ulcer Cleansing Rinsed/ Irrigated with Saline -Foul Odor after Cleansing No -Anesthetic Used 4% Lidocaine Solution [Edema Assessment] -Lower Limb Edema Present No -Right Calf (cm) 31.7 -Right Ankle (cm) 19 - Nurse 2 - General Ulcer CM Notes Start: 04/28/18 09:46 Freq: Status: Active Protocol: Activity Type Activity Date Activity User E-Sign Co-Sign Detail Recorded Client Recorded Date Recorded By Document 05/12/18 10:40 DV [id number] 05/12/18 10:43 DV 05/12/18 10:40 Wound Center Nurse 2 [Procedure/Treatment] #1 R Rubin -Time 10:40 -Correct Patient Yes -Correct Side, Site, Position Yes -Correct Procedure Yes -Procedure Performed Yes -Type of Procedure Debridement -Clinical Debridement Subcutaneous -Post Debridement Size (cm) - Length 2.5 -Post Debridement Size (cm) - Width 2.0 -Post Debridement Size (cm) - Depth 0.2 -Total Square Cm 5.00 -Wound/Ulcer Outcome Not Healed -Ulcer Cleansing Rinsed/ Irrigated with Saline -Foul Odor after Cleansing No -Bioengineered Tissue Yes -Type of bioengineered Tissue EPIFIX -Expiration Date 12/26/22 -Product Lot Number [id number] -Percent Used 100 -Bleeding Controlled with Pressure -Treatment Response Procedure Tolerated Well [See Physician Procedure note for Specifics] Pain Scale: 0-10 Numeric [Pain] -Is Patient Pain Free? Yes Musculoskeletal: Tenderness - With manipulation of ulcer site Neurological: Sensory exam intact to light touch and pain Psych/Mental Status: Normal Affect, Appropriate Debridement Note Post-Debridement Measurements/Treatment WC - Nurse 2 - General Ulcer CM Notes Start: 04/28/18 09:46 Freq: Status: Active Protocol: Activity Type Activity Date Activity User E-Sign Co-Sign Detail Recorded Client Recorded Date Recorded By Document 04/28/18 10:20 DV [id number] 04/28/18 10:23 DV Document 05/12/18 10:40 DV [id number] 05/12/18 10:43 DV 04/28/18 05/12/18 10:20 10:40 Wound Center Nurse 2 #1 R Rubin -Time 10:22 10:40 -Correct Patient Yes Yes -Correct Side, Site, Position Yes Yes -Correct Procedure Yes Yes -Procedure Performed Yes Yes -Type of Procedure Debridement Debridement -Clinical Debridement Subcutaneous Subcutaneous -Post Debridement Size (cm) - Length 3.3 2.5 -Post Debridement Size (cm) - Width 2.5 2.0 -Post Debridement Size (cm) - Depth 0.2 0.2 -Total Square Cm 8.25 5.00 -Wound/Ulcer Outcome Not Healed Not Healed -Ulcer Cleansing Rinsed/ Rinsed/ Irrigated with Irrigated with Saline Saline -Foul Odor after Cleansing No No -Bioengineered Tissue No Yes -Type of bioengineered Tissue EPIFIX -Expiration Date 12/26/22 -Product Lot Number [id number] -Percent Used 100 -Bleeding Controlled with Pressure Pressure -Treatment Response Procedure Procedure Tolerated Well Tolerated Well Pain Scale: 0-10 Numeric Is Patient Pain Free? Yes Yes Wound debrided: Right anterior lower leg Laterality: Right Type of Debridement: Excisional debridement Anesthesia Used: 4% Lidocaine Solution Depth: in the subcutaneous layer Percentage of wound debrided: 100 Instrument Used: 7mm curette Tissue Removed: Adherent slough, fibrin, hyperkeratotic tissue Severity: Fat Layer Exposed Amount of bleeding with debridement: Mild Bleeding Controlled with: Pressure Patient tolerated procedure well Assessment/Plan Assessment: Ulcer right anterior lower leg. Pain right lower leg. Edema lower extremity. Other comorbidities Plan: Patient was examined and evaluated again today. A subcutaneous debridement was performed as noted in the clinical panel. Once complete the ulcer site was carefully cleansed with normal sterile saline, and then dressed with epifix #1, followed by wound veil, steri strips, and a dry sterile dressing and tubigrip. Patient is to keep dressing clean, dry, and intact. She was instructed to not disturb the dressing below the steri strips and wound veil. She can change the outer dressing if drainage is noted. Her culture results were reviewed prior to her visit today. Keeping pressure off of the ulcer site was discussed lizett in great detail. Baseline lab work including CBC with differential, CMP, prealbumin, hemoglobin A1c was reviewed at past patient visit. LEAS and venous Doppler exams completed and results reviewed showing the patient has sufficient blood flow. I also recommend nutritional supplementation with a high-protein diet in order to optimize ulcer healing potential. The patient was educated on all signs and symptoms of local and systemic infection and she is to go to the emergency room immediately should she notice any of these. All questions were answered to the patient's satisfaction. Smoking cessation was discussed. The patient will follow-up in clinic in 2 weeks to check on progress, or sooner if needed.
--- NOTE | 2018-05-12 10:59 | PN.PCM_ITS ---
(1) Ulcer of right lower extremity with fat layer exposed Status: Acute Current Visit: No Code(s): L97.912 - Non-pressure chronic ulcer of unspecified part of right lower leg with fat layer exposed (2) Pain in right lower leg Status: Acute Current Visit: No Code(s): M79.661 - Pain in right lower leg (3) Edema, lower extremity Status: Acute Current Visit: No Code(s): R60.0 - Localized edema (4) Delayed wound healing Status: Acute Current Visit: No Code(s): T14.8XXD - Other injury of unspecified body region, subsequent encounter Type of Wound Chief Complaint: Right anterior lower leg ulcer/laceration History of Wound: This 57-year-old female was referred to the wound healing center by her primary care doctor for a nonhealing ulcer/laceration to the right anterior lower leg. Patient says this started approximately 3 weeks ago when she shut the car door and it created a laceration to her right lower leg. She said she tried to dress the area with Neosporin and bandages. She continued to notice the area not healing as well as some slight redness and she made an appointment to see her primary care doctor. She was started on antibiotics and has since finished prescriptions for Bactrim and cephalexin. Patient is also been using mupirocin topically to the area. She says that the area is not as red as it used to be, but that the area is still painful. She denies any purulence or extending cellulitis. She also denies any feeling of nausea, vomiting, fever, chills. Progress of Wound: Ulcer site improving. Has been changing dressing daily. Denies any signs of infection. Denies nausea, vomiting, fever, or chills. - Physical Exam Vital Signs Temp Pulse Resp BP 96.8 F L 103 H 18 139/89 H 05/12/18 10:00 05/12/18 10:00 05/12/18 10:00 05/12/18 10:00 General: Alert, Oriented x3, Cooperative, No apparent distress Extremities: Capillary Refill Less than 3 Seconds, No Calf Tenderness - Negative Hyun and Bloom sign, Diminished Peripheral Pulses - DP pulses nonpalpable bilateral PT pulses palpable bilateral, Edema - Slight lower extremity edema Skin: Ulcer/ Wound - Ulcer with fat layer exposed to right anterior lower leg. Measurements noted below. Improvement appreciated. Patient tends to be a mixture of adherent slough, fibrin, granular tissue, as well as some slight surrounding hyperkeratotic tissue. There continues to be no purulence, no extending cellulitis, no increase in warmth, no malodor, no probing to bone, no tracking, and no undermining. Wound Measurements and Assessment - Nurse 1 - General Ulcer Measurement Start: 04/28/18 09:46 Freq: Status: Active Protocol: Activity Type Activity Date Activity User E-Sign Co-Sign Detail Recorded Client Recorded Date Recorded By Document 05/12/18 10:00 [facility] [id number] 05/12/18 10:04 [facility] 05/12/18 10:00 Wound Center Nurse 1 [Ulcer Assessment] #1 R Rubin -Combined with other wound No -Current Size (cm) - Length 2.7 -Current Size (cm) - Width 2 -Current Size (cm) - Depth 0.1 -Total Square Cm 5.4 -Photo Taken No -Epithelialization Small 1-33% -Tunneling No -Undermining/Tunneling No -Circular Undermining No -Exudate Amt Small (1-33%) -Exudate Type Serosanguineous -Wound Margin Distinct, Outline Attached -Granulation Amt Medium (34-66%) -Granulation Quality Red -Slough/Fibrin Yes -Necrosis Amt Medium (34-66%) -Necrotic Tissue Type Adherent Slough -Texture (Vivian-wound Skin Appearance) Localized Edema Scarring -Moisture (Vivian-wound Skin Appearance Dry/Scaly ) -Color (Vivian-wound Skin Appearance) Hemosiderin Staining -Temperature (Vivian-wound Skin No Abnormality Appearance) (Pt Warm) -Tenderness on Palpation (Vivian-wound No Skin Appearance) -Ulcer Cleansing Rinsed/ Irrigated with Saline -Foul Odor after Cleansing No -Anesthetic Used 4% Lidocaine Solution [Edema Assessment] -Lower Limb Edema Present No -Right Calf (cm) 31.7 -Right Ankle (cm) 19 - Nurse 2 - General Ulcer CM Notes Start: 04/28/18 09:46 Freq: Status: Active Protocol: Activity Type Activity Date Activity User E-Sign Co-Sign Detail Recorded Client Recorded Date Recorded By Document 05/12/18 10:40 DV [id number] 05/12/18 10:43 DV 05/12/18 10:40 Wound Center Nurse 2 [Procedure/Treatment] #1 R Rubin -Time 10:40 -Correct Patient Yes -Correct Side, Site, Position Yes -Correct Procedure Yes -Procedure Performed Yes -Type of Procedure Debridement -Clinical Debridement Subcutaneous -Post Debridement Size (cm) - Length 2.5 -Post Debridement Size (cm) - Width 2.0 -Post Debridement Size (cm) - Depth 0.2 -Total Square Cm 5.00 -Wound/Ulcer Outcome Not Healed -Ulcer Cleansing Rinsed/ Irrigated with Saline -Foul Odor after Cleansing No -Bioengineered Tissue Yes -Type of bioengineered Tissue EPIFIX -Expiration Date 12/26/22 -Product Lot Number [id number] -Percent Used 100 -Bleeding Controlled with Pressure -Treatment Response Procedure Tolerated Well [See Physician Procedure note for Specifics] Pain Scale: 0-10 Numeric [Pain] -Is Patient Pain Free? Yes Musculoskeletal: Tenderness - With manipulation of ulcer site Neurological: Sensory exam intact to light touch and pain Psych/Mental Status: Normal Affect, Appropriate Debridement Note Post-Debridement Measurements/Treatment WC - Nurse 2 - General Ulcer CM Notes Start: 04/28/18 09:46 Freq: Status: Active Protocol: Activity Type Activity Date Activity User E-Sign Co-Sign Detail Recorded Client Recorded Date Recorded By Document 04/28/18 10:20 DV [id number] 04/28/18 10:23 DV Document 05/12/18 10:40 DV [id number] 05/12/18 10:43 DV 04/28/18 05/12/18 10:20 10:40 Wound Center Nurse 2 #1 R Rubin -Time 10:22 10:40 -Correct Patient Yes Yes -Correct Side, Site, Position Yes Yes -Correct Procedure Yes Yes -Procedure Performed Yes Yes -Type of Procedure Debridement Debridement -Clinical Debridement Subcutaneous Subcutaneous -Post Debridement Size (cm) - Length 3.3 2.5 -Post Debridement Size (cm) - Width 2.5 2.0 -Post Debridement Size (cm) - Depth 0.2 0.2 -Total Square Cm 8.25 5.00 -Wound/Ulcer Outcome Not Healed Not Healed -Ulcer Cleansing Rinsed/ Rinsed/ Irrigated with Irrigated with Saline Saline -Foul Odor after Cleansing No No -Bioengineered Tissue No Yes -Type of bioengineered Tissue EPIFIX -Expiration Date 12/26/22 -Product Lot Number [id number] -Percent Used 100 -Bleeding Controlled with Pressure Pressure -Treatment Response Procedure Procedure Tolerated Well Tolerated Well Pain Scale: 0-10 Numeric Is Patient Pain Free? Yes Yes Wound debrided: Right anterior lower leg Laterality: Right Type of Debridement: Excisional debridement Anesthesia Used: 4% Lidocaine Solution Depth: in the subcutaneous layer Percentage of wound debrided: 100 Instrument Used: 7mm curette Tissue Removed: Adherent slough, fibrin, hyperkeratotic tissue Severity: Fat Layer Exposed Amount of bleeding with debridement: Mild Bleeding Controlled with: Pressure Patient tolerated procedure well Assessment/Plan Assessment: Ulcer right anterior lower leg. Pain right lower leg. Edema lower extremity. Other comorbidities Plan: Patient was examined and evaluated again today. A subcutaneous debridement was performed as noted in the clinical panel. Once complete the ulcer site was carefully cleansed with normal sterile saline, and then dressed with epifix #1, followed by wound veil, steri strips, and a dry sterile dressing and tubigrip. Patient is to keep dressing clean, dry, and intact. She was instructed to not disturb the dressing below the steri strips and wound veil. She can change the outer dressing if drainage is noted. Her culture results were reviewed prior to her visit today. Keeping pressure off of the ulcer site was discussed lizett in great detail. Baseline lab work including CBC with differential, CMP, prealbumin, hemoglobin A1c was reviewed at past patient visit. LEAS and venous Doppler exams completed and results reviewed showing the patient has sufficient blood flow. I also recommend nutritional supplementation with a high-protein diet in order to optimize ulcer healing potential. The patient was educated on all signs and symptoms of local and systemic infection and she is to go to the emergency room immediately should she notice any of these. All questions were answered to the patient's satisfaction. Smoking cessation was discussed. The patient will follow-up in clinic in 2 weeks to check on progress, or sooner if needed.
[2018-05-26 09:25] VITALS: BP 128/73; PULSE 102; RESP 18; TEMP 35.7
--- NOTE | 2018-05-26 13:32 | PCM.WC.PN ---
(1) Ulcer of right lower extremity with fat layer exposed Status: Acute Current Visit: No Code(s): L97.912 - Non-pressure chronic ulcer of unspecified part of right lower leg with fat layer exposed (2) Pain in right lower leg Status: Acute Current Visit: No Code(s): M79.661 - Pain in right lower leg (3) Edema, lower extremity Status: Acute Current Visit: No Code(s): R60.0 - Localized edema (4) Delayed wound healing Status: Acute Current Visit: No Code(s): T14.8XXD - Other injury of unspecified body region, subsequent encounter Type of Wound Chief Complaint: Right anterior lower leg ulcer/laceration History of Wound: This 57-year-old female was referred to the wound healing center by her primary care doctor for a nonhealing ulcer/laceration to the right anterior lower leg. Patient says this started approximately 3 weeks ago when she shut the car door and it created a laceration to her right lower leg. She said she tried to dress the area with Neosporin and bandages. She continued to notice the area not healing as well as some slight redness and she made an appointment to see her primary care doctor. She was started on antibiotics and has since finished prescriptions for Bactrim and cephalexin. Patient is also been using mupirocin topically to the area. She says that the area is not as red as it used to be, but that the area is still painful. She denies any purulence or extending cellulitis. She also denies any feeling of nausea, vomiting, fever, chills. Progress of Wound: Ulcer site improving. Had epifix applied at last visit. Denies any signs of infection. Denies nausea, vomiting, fever, or chills. - Physical Exam Vital Signs Temp Pulse Resp BP 96.2 F L 102 H 18 128/73 H 05/26/18 09:25 05/26/18 09:25 05/26/18 09:25 05/26/18 09:25 General: Alert, Oriented x3, Cooperative, No apparent distress Extremities: Capillary Refill Less than 3 Seconds, No Calf Tenderness, Diminished Peripheral Pulses - Negative Hyun and Bloom sign DP pulses nonpalpable and PT pulses palpable bilateral, Edema - Slight lower extremity edema Skin: Ulcer/ Wound - Ulcer with fat layer exposed to right anterior lower leg. Measurements noted below. Improvement appreciated. Ulcer base noted to be a mixture of adherent slough, fibrin, granular tissue, as well as some slight surrounding hyperkeratotic tissue. There continues to be no purulence, no extending cellulitis, no increase in warmth, no malodor, no probing to bone, no tracking, and no undermining. Wound Measurements and Assessment KANDI - Nurse 1 - General Ulcer Measurement Start: 04/28/18 09:46 Freq: Status: Active Protocol: Activity Type Activity Date Activity User E-Sign Co-Sign Detail Recorded Client Recorded Date Recorded By Document 05/26/18 09:25 [facility] [id number] 05/26/18 09:29 BM 05/26/18 09:25 Wound Center Nurse 1 [Ulcer Assessment] #1 R Rubin -Combined with other wound No -Current Size (cm) - Length 2.1 -Current Size (cm) - Width 1.5 -Current Size (cm) - Depth 0.1 -Total Square Cm 3.15 -Photo Taken Yes -Tunneling No -Undermining/Tunneling No -Circular Undermining No -Exudate Amt Small (1-33%) -Exudate Type Serosanguineous -Wound Margin Fibrotic Scar, Thickened Scar -Granulation Amt Large (67-100%) -Granulation Quality Grace -Slough/Fibrin Yes -Necrosis Amt Small (1-33%) -Necrotic Tissue Type Adherent Slough -Structure Exposed N/A -Texture (Vivian-wound Skin Appearance) Assessed -Moisture (Vivian-wound Skin Appearance Assessed ) Dry/Scaly -Color (Vivian-wound Skin Appearance) Assessed -Tenderness on Palpation (Vivian-wound Yes Skin Appearance) -Ulcer Cleansing Rinsed/ Irrigated with Saline -Foul Odor after Cleansing No -Anesthetic Used 5% Lidocaine Gel [Edema Assessment] -Lower Limb Edema Present Yes -Right Calf (cm) 33.4 -Right Ankle (cm) 19.1 - Nurse 2 - General Ulcer CM Notes Start: 04/28/18 09:46 Freq: Status: Active Protocol: Activity Type Activity Date Activity User E-Sign Co-Sign Detail Recorded Client Recorded Date Recorded By Document 05/26/18 10:15 DV [id number] 05/26/18 10:19 DV 05/26/18 10:15 Wound Center Nurse 2 [Procedure/Treatment] #1 R Rubin -Time 10:15 -Correct Patient Yes -Correct Side, Site, Position Yes -Correct Procedure Yes -Procedure Performed Yes -Type of Procedure Debridement -Clinical Debridement Subcutaneous -Post Debridement Size (cm) - Length 1.9 -Post Debridement Size (cm) - Width 1.4 -Post Debridement Size (cm) - Depth 0.2 -Total Square Cm 2.66 -Wound/Ulcer Outcome Not Healed -Ulcer Cleansing Rinsed/ Irrigated with Saline -Foul Odor after Cleansing No -Bioengineered Tissue Yes -Type of bioengineered Tissue EPICORD -Expiration Date 11/26/22 -Product Lot Number [id number] -Percent Used 50 -Saline Lot Number [id number] -Topical Lidocaine (%) 5 -Bleeding Controlled with Pressure -Offloading No -Treatment Response Procedure Tolerated Well [See Physician Procedure note for Specifics] Pain Scale: 0-10 Numeric [Pain] -Is Patient Pain Free? Yes Musculoskeletal: Tenderness - With manipulation of ulcer site Neurological: Sensory exam intact to light touch and pain Psych/Mental Status: Normal Affect, Appropriate Debridement Note Post-Debridement Measurements/Treatment WC - Nurse 2 - General Ulcer CM Notes Start: 04/28/18 09:46 Freq: Status: Active Protocol: Activity Type Activity Date Activity User E-Sign Co-Sign Detail Recorded Client Recorded Date Recorded By Document 04/28/18 10:20 DV [id number] 04/28/18 10:23 DV Document 05/12/18 10:40 DV [id number] 05/12/18 10:43 DV Document 05/26/18 10:15 DV [id number] 05/26/18 10:19 DV 04/28/18 05/12/18 05/26/18 10:20 10:40 10:15 Wound Center Nurse 2 #1 R Rubin -Time 10:22 10:40 10:15 -Correct Patient Yes Yes Yes -Correct Side, Site, Position Yes Yes Yes -Correct Procedure Yes Yes Yes -Procedure Performed Yes Yes Yes -Type of Procedure Debridement Debridement Debridement -Clinical Debridement Subcutaneous Subcutaneous Subcutaneous -Post Debridement Size (cm) - Length 3.3 2.5 1.9 -Post Debridement Size (cm) - Width 2.5 2.0 1.4 -Post Debridement Size (cm) - Depth 0.2 0.2 0.2 -Total Square Cm 8.25 5.00 2.66 -Wound/Ulcer Outcome Not Healed Not Healed Not Healed -Ulcer Cleansing Rinsed/ Rinsed/ Rinsed/ Irrigated with Irrigated with Irrigated with Saline Saline Saline -Foul Odor after Cleansing No No No -Bioengineered Tissue No Yes Yes -Type of bioengineered Tissue EPIFIX EPICORD -Expiration Date 12/26/22 11/26/22 -Product Lot Number [id number] -Percent Used 100 50 -Saline Lot Number [id number] -Topical Lidocaine (%) 5 -Bleeding Controlled with Pressure Pressure Pressure -Offloading No -Treatment Response Procedure Procedure Procedure Tolerated Well Tolerated Well Tolerated Well Pain Scale: 0-10 Numeric Is Patient Pain Free? Yes Yes Yes Wound debrided: Right anterior lower leg Laterality: Right Type of Debridement: Excisional debridement Anesthesia Used: 4% Lidocaine Solution Depth: in the subcutaneous layer Percentage of wound debrided: 100 Instrument Used: 7mm curette Tissue Removed: Adherent slough, fibrin, hyperkeratotic tissue Severity: Fat Layer Exposed Amount of bleeding with debridement: Mild Bleeding Controlled with: Pressure Patient tolerated procedure well Assessment/Plan Assessment: Ulcer right anterior lower leg. Pain right lower leg. Edema lower extremity. Other comorbidities Plan: Patient was examined and evaluated again today. A subcutaneous debridement was performed as noted in the clinical panel. Once complete the ulcer site was carefully cleansed with normal sterile saline, and then dressed with epifix #2, followed by wound veil, steri strips, and a dry sterile dressing and tubigrip. Patient is to keep dressing clean, dry, and intact. She was instructed to not disturb the dressing below the steri strips and wound veil. She can change the outer dressing if drainage is noted. Her culture results were reviewed prior to her visit today. Keeping pressure off of the ulcer site was discussed in great detail. Baseline lab work including CBC with differential, CMP, prealbumin, hemoglobin A1c was reviewed at past patient visit. LEAS and venous Doppler exams completed and results reviewed showing the patient has sufficient blood flow. I also recommend nutritional supplementation with a high-protein diet in order to optimize ulcer healing potential. The patient was educated on all signs and symptoms of local and systemic infection and she is to go to the emergency room immediately should she notice any of these. All questions were answered to the patient's satisfaction. Smoking cessation was discussed. The patient will follow-up in clinic in 1 week to check on progress, or sooner if needed.
--- NOTE | 2018-05-26 13:36 | PN.PCM_ITS ---
(1) Ulcer of right lower extremity with fat layer exposed Status: Acute Current Visit: No Code(s): L97.912 - Non-pressure chronic ulcer of unspecified part of right lower leg with fat layer exposed (2) Pain in right lower leg Status: Acute Current Visit: No Code(s): M79.661 - Pain in right lower leg (3) Edema, lower extremity Status: Acute Current Visit: No Code(s): R60.0 - Localized edema (4) Delayed wound healing Status: Acute Current Visit: No Code(s): T14.8XXD - Other injury of unspecified body region, subsequent encounter Type of Wound Chief Complaint: Right anterior lower leg ulcer/laceration History of Wound: This 57-year-old female was referred to the wound healing center by her primary care doctor for a nonhealing ulcer/laceration to the right anterior lower leg. Patient says this started approximately 3 weeks ago when she shut the car door and it created a laceration to her right lower leg. She said she tried to dress the area with Neosporin and bandages. She continued to notice the area not healing as well as some slight redness and she made an appointment to see her primary care doctor. She was started on antibiotics and has since finished prescriptions for Bactrim and cephalexin. Patient is also been using mupirocin topically to the area. She says that the area is not as red as it used to be, but that the area is still painful. She denies any purulence or extending cellulitis. She also denies any feeling of nausea, vomiting, fever, chills. Progress of Wound: Ulcer site improving. Had epifix applied at last visit. Denies any signs of infection. Denies nausea, vomiting, fever, or chills. - Physical Exam Vital Signs Temp Pulse Resp BP 96.2 F L 102 H 18 128/73 H 05/26/18 09:25 05/26/18 09:25 05/26/18 09:25 05/26/18 09:25 General: Alert, Oriented x3, Cooperative, No apparent distress Extremities: Capillary Refill Less than 3 Seconds, No Calf Tenderness, Diminished Peripheral Pulses - Negative Hyun and Bloom sign DP pulses nonpalpable and PT pulses palpable bilateral, Edema - Slight lower extremity edema Skin: Ulcer/ Wound - Ulcer with fat layer exposed to right anterior lower leg. Measurements noted below. Improvement appreciated. Ulcer base noted to be a mixture of adherent slough, fibrin, granular tissue, as well as some slight surrounding hyperkeratotic tissue. There continues to be no purulence, no extending cellulitis, no increase in warmth, no malodor, no probing to bone, no tracking, and no undermining. Wound Measurements and Assessment KANDI - Nurse 1 - General Ulcer Measurement Start: 04/28/18 09:46 Freq: Status: Active Protocol: Activity Type Activity Date Activity User E-Sign Co-Sign Detail Recorded Client Recorded Date Recorded By Document 05/26/18 09:25 [facility] [id number] 05/26/18 09:29 BM 05/26/18 09:25 Wound Center Nurse 1 [Ulcer Assessment] #1 R Rubin -Combined with other wound No -Current Size (cm) - Length 2.1 -Current Size (cm) - Width 1.5 -Current Size (cm) - Depth 0.1 -Total Square Cm 3.15 -Photo Taken Yes -Tunneling No -Undermining/Tunneling No -Circular Undermining No -Exudate Amt Small (1-33%) -Exudate Type Serosanguineous -Wound Margin Fibrotic Scar, Thickened Scar -Granulation Amt Large (67-100%) -Granulation Quality Alvin -Slough/Fibrin Yes -Necrosis Amt Small (1-33%) -Necrotic Tissue Type Adherent Slough -Structure Exposed N/A -Texture (Vivian-wound Skin Appearance) Assessed -Moisture (Vivian-wound Skin Appearance Assessed ) Dry/Scaly -Color (Vivian-wound Skin Appearance) Assessed -Tenderness on Palpation (Vivian-wound Yes Skin Appearance) -Ulcer Cleansing Rinsed/ Irrigated with Saline -Foul Odor after Cleansing No -Anesthetic Used 5% Lidocaine Gel [Edema Assessment] -Lower Limb Edema Present Yes -Right Calf (cm) 33.4 -Right Ankle (cm) 19.1 - Nurse 2 - General Ulcer CM Notes Start: 04/28/18 09:46 Freq: Status: Active Protocol: Activity Type Activity Date Activity User E-Sign Co-Sign Detail Recorded Client Recorded Date Recorded By Document 05/26/18 10:15 DV [id number] 05/26/18 10:19 DV 05/26/18 10:15 Wound Center Nurse 2 [Procedure/Treatment] #1 R Rubin -Time 10:15 -Correct Patient Yes -Correct Side, Site, Position Yes -Correct Procedure Yes -Procedure Performed Yes -Type of Procedure Debridement -Clinical Debridement Subcutaneous -Post Debridement Size (cm) - Length 1.9 -Post Debridement Size (cm) - Width 1.4 -Post Debridement Size (cm) - Depth 0.2 -Total Square Cm 2.66 -Wound/Ulcer Outcome Not Healed -Ulcer Cleansing Rinsed/ Irrigated with Saline -Foul Odor after Cleansing No -Bioengineered Tissue Yes -Type of bioengineered Tissue EPICORD -Expiration Date 11/26/22 -Product Lot Number [id number] -Percent Used 50 -Saline Lot Number [id number] -Topical Lidocaine (%) 5 -Bleeding Controlled with Pressure -Offloading No -Treatment Response Procedure Tolerated Well [See Physician Procedure note for Specifics] Pain Scale: 0-10 Numeric [Pain] -Is Patient Pain Free? Yes Musculoskeletal: Tenderness - With manipulation of ulcer site Neurological: Sensory exam intact to light touch and pain Psych/Mental Status: Normal Affect, Appropriate Debridement Note Post-Debridement Measurements/Treatment WC - Nurse 2 - General Ulcer CM Notes Start: 04/28/18 09:46 Freq: Status: Active Protocol: Activity Type Activity Date Activity User E-Sign Co-Sign Detail Recorded Client Recorded Date Recorded By Document 04/28/18 10:20 DV [id number] 04/28/18 10:23 DV Document 05/12/18 10:40 DV [id number] 05/12/18 10:43 DV Document 05/26/18 10:15 DV [id number] 05/26/18 10:19 DV 04/28/18 05/12/18 05/26/18 10:20 10:40 10:15 Wound Center Nurse 2 #1 R Rubin -Time 10:22 10:40 10:15 -Correct Patient Yes Yes Yes -Correct Side, Site, Position Yes Yes Yes -Correct Procedure Yes Yes Yes -Procedure Performed Yes Yes Yes -Type of Procedure Debridement Debridement Debridement -Clinical Debridement Subcutaneous Subcutaneous Subcutaneous -Post Debridement Size (cm) - Length 3.3 2.5 1.9 -Post Debridement Size (cm) - Width 2.5 2.0 1.4 -Post Debridement Size (cm) - Depth 0.2 0.2 0.2 -Total Square Cm 8.25 5.00 2.66 -Wound/Ulcer Outcome Not Healed Not Healed Not Healed -Ulcer Cleansing Rinsed/ Rinsed/ Rinsed/ Irrigated with Irrigated with Irrigated with Saline Saline Saline -Foul Odor after Cleansing No No No -Bioengineered Tissue No Yes Yes -Type of bioengineered Tissue EPIFIX EPICORD -Expiration Date 12/26/22 11/26/22 -Product Lot Number [id number] -Percent Used 100 50 -Saline Lot Number [id number] -Topical Lidocaine (%) 5 -Bleeding Controlled with Pressure Pressure Pressure -Offloading No -Treatment Response Procedure Procedure Procedure Tolerated Well Tolerated Well Tolerated Well Pain Scale: 0-10 Numeric Is Patient Pain Free? Yes Yes Yes Wound debrided: Right anterior lower leg Laterality: Right Type of Debridement: Excisional debridement Anesthesia Used: 4% Lidocaine Solution Depth: in the subcutaneous layer Percentage of wound debrided: 100 Instrument Used: 7mm curette Tissue Removed: Adherent slough, fibrin, hyperkeratotic tissue Severity: Fat Layer Exposed Amount of bleeding with debridement: Mild Bleeding Controlled with: Pressure Patient tolerated procedure well Assessment/Plan Assessment: Ulcer right anterior lower leg. Pain right lower leg. Edema lower extremity. Other comorbidities Plan: Patient was examined and evaluated again today. A subcutaneous debridement was performed as noted in the clinical panel. Once complete the ulcer site was carefully cleansed with normal sterile saline, and then dressed with epifix #2, followed by wound veil, steri strips, and a dry sterile dressing and tubigrip. Patient is to keep dressing clean, dry, and intact. She was instructed to not disturb the dressing below the steri strips and wound veil. She can change the outer dressing if drainage is noted. Her culture results were reviewed prior to her visit today. Keeping pressure off of the ulcer site was discussed in great detail. Baseline lab work including CBC with differential, CMP, prealbumin, hemoglobin A1c was reviewed at past patient visit. LEAS and venous Doppler exams completed and results reviewed showing the patient has sufficient blood flow. I also recommend nutritional supplementation with a high- protein diet in order to optimize ulcer healing potential. The patient was educated on all signs and symptoms of local and systemic infection and she is to go to the emergency room immediately should she notice any of these. All questions were answered to the patient's satisfaction. Smoking cessation was discussed. The patient will follow-up in clinic in 1 week to check on progress, or sooner if needed.
== END 2018-05-27 23:59 ==
LOC: WC 09:30
PROVIDERS: Family Provider Family Medicine; PCP Family Medicine; Referring Provider Podiatrist; Visit Provider Podiatrist
DX: L97.812 Non-pressure chronic ulcer of other part of right lower leg with fat layer exposed (principal); R60.0 Localized edema; M79.661 Pain in right lower leg
CPT/HCPCS: 11042; 15271; Q4131

== ENCOUNTER 2018-06-16 09:15 | Outpatient (RCR) | payer MEDICAID, SELFPAY ==
[2018-05-28 01:33] VITALS: BP 128/73; PULSE 102; RESP 18; TEMP 35.7
[2018-06-02 10:02] VITALS: BP 131/87; PULSE 93; RESP 18; TEMP 36.4; BMI 27.8
--- NOTE | 2018-06-02 13:58 | PCM.WC.PN ---
(1) Ulcer of right lower extremity with fat layer exposed Status: Acute Current Visit: No Code(s): L97.912 - Non-pressure chronic ulcer of unspecified part of right lower leg with fat layer exposed (2) Pain in right lower leg Status: Acute Current Visit: No Code(s): M79.661 - Pain in right lower leg (3) Edema, lower extremity Status: Acute Current Visit: No Code(s): R60.0 - Localized edema (4) Delayed wound healing Status: Acute Current Visit: No Code(s): T14.8XXD - Other injury of unspecified body region, subsequent encounter Type of Wound Chief Complaint: Right anterior lower leg ulcer/laceration History of Wound: This 57-year-old female was referred to the wound healing center by her primary care doctor for a nonhealing ulcer/laceration to the right anterior lower leg. Patient says this started approximately 3 weeks ago when she shut the car door and it created a laceration to her right lower leg. She said she tried to dress the area with Neosporin and bandages. She continued to notice the area not healing as well as some slight redness and she made an appointment to see her primary care doctor. She was started on antibiotics and has since finished prescriptions for Bactrim and cephalexin. Patient is also been using mupirocin topically to the area. She says that the area is not as red as it used to be, but that the area is still painful. She denies any purulence or extending cellulitis. She also denies any feeling of nausea, vomiting, fever, chills. Progress of Wound: Ulcer continues improving. Had epifix applied at last visit. Denies any signs of infection. Denies nausea, vomiting, fever, or chills. - Physical Exam Vital Signs Temp Pulse Resp BP 97.5 F L 93 18 131/87 H 06/02/18 10:06/02/18 10:02 06/02/18 10:06/02/18 10:02 General: Alert, Oriented x3, Cooperative, No apparent distress Extremities: Capillary Refill Less than 3 Seconds, No Calf Tenderness - Negative Hyun and Bloom sign, Diminished Peripheral Pulses - DP pulses nonpalpable and PT pulses palpable bilateral, Edema - Minor lower extremity edema Skin: Ulcer/ Wound - Ulcer with fat layer exposed to right anterior lower leg. Measurements noted below. Improvement noted again this week. The base is a mixture of adherent slough, fibrin, granular tissue, as well as some surrounding hyperkeratotic tissue. There is no probing to bone, no tracking, no undermining, no purulence, no extending or surrounding cellulitis, no malodor, and no increase in warmth. Wound Measurements and Assessment - Nurse 1 - General Ulcer Measurement Start: 06/02/18 10:01 Freq: Status: Active Protocol: Activity Type Activity Date Activity User E-Sign Co-Sign Detail Recorded Client Recorded Date Recorded By Document 06/02/18 10:02 DL [id number] 06/02/18 10:09 DL 06/02/18 10:02 Wound Center Nurse 1 [Ulcer Assessment] #1 R Rubin -Current Size (cm) - Length 1.6 -Current Size (cm) - Width 1 -Current Size (cm) - Depth 0.1 -Total Square Cm 1.6 -Photo Taken No -Exudate Amt Medium (34-66%) -Exudate Type Serosanguineous -Wound Margin Distinct, Outline Attached -Granulation Amt Small (1-33%) -Granulation Quality [place] -Slough/Fibrin Yes -Necrosis Amt Large (67-100%) -Necrotic Tissue Type Adherent Slough -Structure Exposed N/A -Texture (Vivian-wound Skin Appearance) No Abnormality -Moisture (Vivian-wound Skin Appearance No Abnormality ) -Color (Vivian-wound Skin Appearance) Hemosiderin Staining -Temperature (Vivian-wound Skin No Abnormality Appearance) (Pt Warm) -Tenderness on Palpation (Vivian-wound Yes Skin Appearance) -Foul Odor after Cleansing No [Edema Assessment] -Right Calf (cm) 31.2 -Right Ankle (cm) 18 WC - Nurse 2 - General Ulcer CM Notes Start: 06/02/18 10:01 Freq: Status: Active Protocol: Activity Type Activity Date Activity User E-Sign Co-Sign Detail Recorded Client Recorded Date Recorded By Document 06/02/18 10:31 CS [id number] 06/02/18 10:32 CS 06/02/18 10:31 Wound Center Nurse 2 [Procedure/Treatment] #1 R Rubin -Time 10:31 -Correct Patient Yes -Correct Side, Site, Position Yes -Correct Procedure Yes -Procedure Performed Yes -Type of Procedure Debridement -Clinical Debridement Subcutaneous -Post Debridement Size (cm) - Length 1.8 -Post Debridement Size (cm) - Width 1.3 -Post Debridement Size (cm) - Depth 0.2 -Total Square Cm 2.34 -Wound/Ulcer Outcome Not Healed -Ulcer Cleansing Rinsed/ Irrigated with Saline -Foul Odor after Cleansing No -Bioengineered Tissue Yes -Type of bioengineered Tissue EPIFIX -Expiration Date 12/26/22 -Product Lot Number [id number] -Percent Used 100 -Saline Lot Number [id number] -Bleeding Controlled with NA -Offloading No -Treatment Response Procedure Tolerated Well [See Physician Procedure note for Specifics] Pain Scale: 0-10 Numeric [Pain] -Is Patient Pain Free? No Musculoskeletal: Tenderness - With manipulation of ulcer site Neurological: Sensory exam intact to light touch and pain Psych/Mental Status: Normal Affect, Appropriate Debridement Note Post-Debridement Measurements/Treatment WC - Nurse 2 - General Ulcer CM Notes Start: 06/02/18 10:01 Freq: Status: Active Protocol: Activity Type Activity Date Activity User E-Sign Co-Sign Detail Recorded Client Recorded Date Recorded By Document 06/02/18 10:31 [id number] 06/02/18 10:32 06/02/18 10:31 Wound Center Nurse 2 #1 R Rubin -Time 10:31 -Correct Patient Yes -Correct Side, Site, Position Yes -Correct Procedure Yes -Procedure Performed Yes -Type of Procedure Debridement -Clinical Debridement Subcutaneous -Post Debridement Size (cm) - Length 1.8 -Post Debridement Size (cm) - Width 1.3 -Post Debridement Size (cm) - Depth 0.2 -Total Square Cm 2.34 -Wound/Ulcer Outcome Not Healed -Ulcer Cleansing Rinsed/ Irrigated with Saline -Foul Odor after Cleansing No -Bioengineered Tissue Yes -Type of bioengineered Tissue EPIFIX -Expiration Date 12/26/22 -Product Lot Number [id number] -Percent Used 100 -Saline Lot Number [id number] -Bleeding Controlled with NA -Offloading No -Treatment Response Procedure Tolerated Well Pain Scale: 0-10 Numeric Is Patient Pain Free? No Wound debrided: Right anterior lower leg Laterality: Right Type of Debridement: Excisional debridement Anesthesia Used: 4% Lidocaine Solution Depth: in the subcutaneous layer Percentage of wound debrided: 100 Instrument Used: 7mm curette Tissue Removed: Adherent slough, fibrin, hyperkeratotic tissue Severity: Fat Layer Exposed Amount of bleeding with debridement: Mild Bleeding Controlled with: Pressure Patient tolerated procedure well Assessment/Plan Assessment: Ulcer right anterior lower leg. Pain right lower leg. Edema lower extremity. Other comorbidities Plan: Patient was examined and evaluated again today. A subcutaneous debridement was performed as noted in the clinical panel. Once complete the ulcer site was carefully cleansed with normal sterile saline, and then dressed with epifix #3, followed by wound veil, steri strips, and a dry sterile dressing and tubigrip. Patient is to keep dressing clean, dry, and intact. She was instructed to not disturb the dressing below the steri strips and wound veil. She can change the outer dressing if drainage is noted. Keeping pressure off of the ulcer site was discussed in great detail. Baseline lab work including CBC with differential, CMP, prealbumin, hemoglobin A1c was reviewed at past patient visit. LEAS and venous Doppler exams completed and results reviewed showing the patient has sufficient blood flow. I also recommend nutritional supplementation with a high-protein diet in order to optimize ulcer healing potential. The patient was educated on all signs and symptoms of local and systemic infection and she is to go to the emergency room immediately should she notice any of these. All questions were answered to the patient's satisfaction. Smoking cessation was discussed again today. The patient will follow-up in clinic in 1 week to check on progress, or sooner if needed.
--- NOTE | 2018-06-02 14:02 | PN.PCM_ITS ---
(1) Ulcer of right lower extremity with fat layer exposed Status: Acute Current Visit: No Code(s): L97.912 - Non-pressure chronic ulcer of unspecified part of right lower leg with fat layer exposed (2) Pain in right lower leg Status: Acute Current Visit: No Code(s): M79.661 - Pain in right lower leg (3) Edema, lower extremity Status: Acute Current Visit: No Code(s): R60.0 - Localized edema (4) Delayed wound healing Status: Acute Current Visit: No Code(s): T14.8XXD - Other injury of unspecified body region, subsequent encounter Type of Wound Chief Complaint: Right anterior lower leg ulcer/laceration History of Wound: This 57-year-old female was referred to the wound healing center by her primary care doctor for a nonhealing ulcer/laceration to the right anterior lower leg. Patient says this started approximately 3 weeks ago when she shut the car door and it created a laceration to her right lower leg. She said she tried to dress the area with Neosporin and bandages. She continued to notice the area not healing as well as some slight redness and she made an appointment to see her primary care doctor. She was started on antibiotics and has since finished prescriptions for Bactrim and cephalexin. Patient is also been using mupirocin topically to the area. She says that the area is not as red as it used to be, but that the area is still painful. She denies any purulence or extending cellulitis. She also denies any feeling of nausea, vomiting, fever, chills. Progress of Wound: Ulcer continues improving. Had epifix applied at last visit. Denies any signs of infection. Denies nausea, vomiting, fever, or chills. - Physical Exam Vital Signs Temp Pulse Resp BP 97.5 F L 93 18 131/87 H 06/02/18 10:06/02/18 10:02 06/02/18 10:06/02/18 10:02 General: Alert, Oriented x3, Cooperative, No apparent distress Extremities: Capillary Refill Less than 3 Seconds, No Calf Tenderness - Negative Hyun and Bloom sign, Diminished Peripheral Pulses - DP pulses nonpalpable and PT pulses palpable bilateral, Edema - Minor lower extremity edema Skin: Ulcer/ Wound - Ulcer with fat layer exposed to right anterior lower leg. Measurements noted below. Improvement noted again this week. The base is a mixture of adherent slough, fibrin, granular tissue, as well as some surrounding hyperkeratotic tissue. There is no probing to bone, no tracking, no undermining, no purulence, no extending or surrounding cellulitis, no malodor, and no increase in warmth. Wound Measurements and Assessment - Nurse 1 - General Ulcer Measurement Start: 06/02/18 10:01 Freq: Status: Active Protocol: Activity Type Activity Date Activity User E-Sign Co-Sign Detail Recorded Client Recorded Date Recorded By Document 06/02/18 10:02 DL [id number] 06/02/18 10:09 DL 06/02/18 10:02 Wound Center Nurse 1 [Ulcer Assessment] #1 R Rubin -Current Size (cm) - Length 1.6 -Current Size (cm) - Width 1 -Current Size (cm) - Depth 0.1 -Total Square Cm 1.6 -Photo Taken No -Exudate Amt Medium (34-66%) -Exudate Type Serosanguineous -Wound Margin Distinct, Outline Attached -Granulation Amt Small (1-33%) -Granulation Quality [place] -Slough/Fibrin Yes -Necrosis Amt Large (67-100%) -Necrotic Tissue Type Adherent Slough -Structure Exposed N/A -Texture (Vivian-wound Skin Appearance) No Abnormality -Moisture (Vivian-wound Skin Appearance No Abnormality ) -Color (Vivian-wound Skin Appearance) Hemosiderin Staining -Temperature (Vivian-wound Skin No Abnormality Appearance) (Pt Warm) -Tenderness on Palpation (Vivian-wound Yes Skin Appearance) -Foul Odor after Cleansing No [Edema Assessment] -Right Calf (cm) 31.2 -Right Ankle (cm) 18 WC - Nurse 2 - General Ulcer CM Notes Start: 06/02/18 10:01 Freq: Status: Active Protocol: Activity Type Activity Date Activity User E-Sign Co-Sign Detail Recorded Client Recorded Date Recorded By Document 06/02/18 10:31 CS [id number] 06/02/18 10:32 CS 06/02/18 10:31 Wound Center Nurse 2 [Procedure/Treatment] #1 R Rubin -Time 10:31 -Correct Patient Yes -Correct Side, Site, Position Yes -Correct Procedure Yes -Procedure Performed Yes -Type of Procedure Debridement -Clinical Debridement Subcutaneous -Post Debridement Size (cm) - Length 1.8 -Post Debridement Size (cm) - Width 1.3 -Post Debridement Size (cm) - Depth 0.2 -Total Square Cm 2.34 -Wound/Ulcer Outcome Not Healed -Ulcer Cleansing Rinsed/ Irrigated with Saline -Foul Odor after Cleansing No -Bioengineered Tissue Yes -Type of bioengineered Tissue EPIFIX -Expiration Date 12/26/22 -Product Lot Number [id number] -Percent Used 100 -Saline Lot Number [id number] -Bleeding Controlled with NA -Offloading No -Treatment Response Procedure Tolerated Well [See Physician Procedure note for Specifics] Pain Scale: 0-10 Numeric [Pain] -Is Patient Pain Free? No Musculoskeletal: Tenderness - With manipulation of ulcer site Neurological: Sensory exam intact to light touch and pain Psych/Mental Status: Normal Affect, Appropriate Debridement Note Post-Debridement Measurements/Treatment WC - Nurse 2 - General Ulcer CM Notes Start: 06/02/18 10:01 Freq: Status: Active Protocol: Activity Type Activity Date Activity User E-Sign Co-Sign Detail Recorded Client Recorded Date Recorded By Document 06/02/18 10:31 [id number] 06/02/18 10:32 06/02/18 10:31 Wound Center Nurse 2 #1 R Rubin -Time 10:31 -Correct Patient Yes -Correct Side, Site, Position Yes -Correct Procedure Yes -Procedure Performed Yes -Type of Procedure Debridement -Clinical Debridement Subcutaneous -Post Debridement Size (cm) - Length 1.8 -Post Debridement Size (cm) - Width 1.3 -Post Debridement Size (cm) - Depth 0.2 -Total Square Cm 2.34 -Wound/Ulcer Outcome Not Healed -Ulcer Cleansing Rinsed/ Irrigated with Saline -Foul Odor after Cleansing No -Bioengineered Tissue Yes -Type of bioengineered Tissue EPIFIX -Expiration Date 12/26/22 -Product Lot Number [id number] -Percent Used 100 -Saline Lot Number [id number] -Bleeding Controlled with NA -Offloading No -Treatment Response Procedure Tolerated Well Pain Scale: 0-10 Numeric Is Patient Pain Free? No Wound debrided: Right anterior lower leg Laterality: Right Type of Debridement: Excisional debridement Anesthesia Used: 4% Lidocaine Solution Depth: in the subcutaneous layer Percentage of wound debrided: 100 Instrument Used: 7mm curette Tissue Removed: Adherent slough, fibrin, hyperkeratotic tissue Severity: Fat Layer Exposed Amount of bleeding with debridement: Mild Bleeding Controlled with: Pressure Patient tolerated procedure well Assessment/Plan Assessment: Ulcer right anterior lower leg. Pain right lower leg. Edema lower extremity. Other comorbidities Plan: Patient was examined and evaluated again today. A subcutaneous debridement was performed as noted in the clinical panel. Once complete the ulcer site was carefully cleansed with normal sterile saline, and then dressed with epifix #3, followed by wound veil, steri strips, and a dry sterile dressing and tubigrip. Patient is to keep dressing clean, dry, and intact. She was instructed to not disturb the dressing below the steri strips and wound veil. She can change the outer dressing if drainage is noted. Keeping pressure off of the ulcer site was discussed in great detail. Baseline lab work including CBC with differential, CMP, prealbumin, hemoglobin A1c was reviewed at past patient visit. LEAS and venous Doppler exams completed and results reviewed showing the patient has sufficient blood flow. I also recommend nutritional supplementation with a high-protein diet in order to optimize ulcer healing potential. The patient was educated on all signs and symptoms of local and systemic infection and she is to go to the emergency room immediately should she notice any of these. All questions were answered to the patient's satisfaction. Smoking cessation was discussed again today. The patient will follow-up in clinic in 1 week to check on progress, or sooner if needed.
[2018-06-09 09:47] VITALS: BP 123/85; PULSE 97; RESP 18; TEMP 35.8; BMI 27.8
--- NOTE | 2018-06-09 12:07 | PCM.WC.PN ---
(1) Ulcer of right lower extremity with fat layer exposed Status: Acute Current Visit: No Code(s): L97.912 - Non-pressure chronic ulcer of unspecified part of right lower leg with fat layer exposed (2) Pain in right lower leg Status: Acute Current Visit: No Code(s): M79.661 - Pain in right lower leg (3) Edema, lower extremity Status: Acute Current Visit: No Code(s): R60.0 - Localized edema (4) Delayed wound healing Status: Acute Current Visit: No Code(s): T14.8XXD - Other injury of unspecified body region, subsequent encounter Type of Wound Chief Complaint: Right anterior lower leg ulcer/laceration History of Wound: This 57-year-old female was referred to the wound healing center by her primary care doctor for a nonhealing ulcer/laceration to the right anterior lower leg. Patient says this started approximately 3 weeks ago when she shut the car door and it created a laceration to her right lower leg. She said she tried to dress the area with Neosporin and bandages. She continued to notice the area not healing as well as some slight redness and she made an appointment to see her primary care doctor. She was started on antibiotics and has since finished prescriptions for Bactrim and cephalexin. Patient is also been using mupirocin topically to the area. She says that the area is not as red as it used to be, but that the area is still painful. She denies any purulence or extending cellulitis. She also denies any feeling of nausea, vomiting, fever, chills. Progress of Wound: Ulcer continues improving. Denies any signs of infection. Denies nausea, vomiting, fever, or chills. - Physical Exam Vital Signs Temp Pulse Resp BP 96.4 F L 97 18 123/85 H 06/09/18 09:47 06/09/18 09:47 06/09/18 09:47 06/09/18 09:47 General: Alert, Oriented x3, Cooperative, No apparent distress Extremities: Capillary Refill Less than 3 Seconds, No Calf Tenderness, Diminished Peripheral Pulses - Negative Hyun and Bloom sign DP pulses nonpalpable and PT pulses palpable bilateral, Edema - Minor lower extremity edema Skin: Ulcer/ Wound - Ulcer with fat layer exposed to right anterior lower leg. Measurements noted below. Improvement noted again this week. The base continues to be a mixture of adherent slough, fibrin, granular tissue, as well as some slight surrounding hyperkeratotic tissue. There continues to be no probing to bone, no tracking, no undermining, no purulence, no cellulitis, no malodor, no increase in warmth. Wound Measurements and Assessment WC - Nurse 1 - General Ulcer Measurement Start: 06/02/18 10:01 Freq: Status: Active Protocol: Activity Type Activity Date Activity User E-Sign Co-Sign Detail Recorded Client Recorded Date Recorded By Document 06/09/18 09:47 DL [id number] 06/09/18 09:54 DL 06/09/18 09:47 Wound Center Nurse 1 [Ulcer Assessment] #1 R Rubin -Current Size (cm) - Length 1.8 -Current Size (cm) - Width 1.4 -Current Size (cm) - Depth 0.1 -Total Square Cm 2.52 -Photo Taken No -Exudate Amt Small (1-33%) -Exudate Type Serosanguineous -Wound Margin Thickened -Granulation Amt Small (1-33%) -Granulation Quality [place] -Necrosis Amt Large (67-100%) -Necrotic Tissue Type Adherent Slough -Structure Exposed N/A -Texture (Vivian-wound Skin Appearance) Localized Edema Scarring -Moisture (Vivian-wound Skin Appearance Dry/Scaly ) -Color (Vivian-wound Skin Appearance) Hemosiderin Staining -Temperature (Vivian-wound Skin No Abnormality Appearance) (Pt Warm) -Tenderness on Palpation (Vivian-wound Yes Skin Appearance) -Ulcer Cleansing Rinsed/ Irrigated with Saline -Foul Odor after Cleansing No -Anesthetic Used 4% Lidocaine Solution 5% Lidocaine Gel [Edema Assessment] -Right Calf (cm) 31.3 -Right Ankle (cm) 18.3 WC - Nurse 2 - General Ulcer CM Notes Start: 06/02/18 10:01 Freq: Status: Active Protocol: Activity Type Activity Date Activity User E-Sign Co-Sign Detail Recorded Client Recorded Date Recorded By Document 06/09/18 10:25 DV [id number] 06/09/18 10:34 DV 06/09/18 10:25 Wound Center Nurse 2 [Procedure/Treatment] #1 R Rubin -Time 10:27 -Correct Patient Yes -Correct Side, Site, Position Yes -Correct Procedure Yes -Procedure Performed Yes -Type of Procedure Debridement -Clinical Debridement Subcutaneous -Post Debridement Size (cm) - Length 1.5 -Post Debridement Size (cm) - Width 1.0 -Post Debridement Size (cm) - Depth 0.2 -Total Square Cm 1.50 -Wound/Ulcer Outcome Not Healed -Ulcer Cleansing Rinsed/ Irrigated with Saline -Foul Odor after Cleansing No -Bioengineered Tissue No -Type of bioengineered Tissue EPIFIX -Expiration Date 06/09/18 -Product Lot Number [id number] -Percent Used 100 -Saline Lot Number [id number] -Topical Lidocaine (%) 5 -Bleeding Controlled with Pressure -Offloading No -Treatment Response Procedure Tolerated Well [See Physician Procedure note for Specifics] Pain Scale: 0-10 Numeric [Pain] -Is Patient Pain Free? Yes Musculoskeletal: Tenderness - With manipulation of ulcer site Neurological: Sensory exam intact to light touch and pain Psych/Mental Status: Normal Affect, Appropriate Debridement Note Post-Debridement Measurements/Treatment WC - Nurse 2 - General Ulcer CM Notes Start: 06/02/18 10:01 Freq: Status: Active Protocol: Activity Type Activity Date Activity User E-Sign Co-Sign Detail Recorded Client Recorded Date Recorded By Document 06/02/18 10:31 [id number] 06/02/18 10:32 Document 06/09/18 10:25 DV [id number] 06/09/18 10:34 DV 06/02/18 06/09/18 10:31 10:25 Wound Center Nurse 2 #1 R Rubin -Time 10:31 10:27 -Correct Patient Yes Yes -Correct Side, Site, Position Yes Yes -Correct Procedure Yes Yes -Procedure Performed Yes Yes -Type of Procedure Debridement Debridement -Clinical Debridement Subcutaneous Subcutaneous -Post Debridement Size (cm) - Length 1.8 1.5 -Post Debridement Size (cm) - Width 1.3 1.0 -Post Debridement Size (cm) - Depth 0.2 0.2 -Total Square Cm 2.34 1.50 -Wound/Ulcer Outcome Not Healed Not Healed -Ulcer Cleansing Rinsed/ Rinsed/ Irrigated with Irrigated with Saline Saline -Foul Odor after Cleansing No No -Bioengineered Tissue Yes No -Type of bioengineered Tissue EPIFIX EPIFIX -Expiration Date 12/26/22 06/09/18 -Product Lot Number [id number] -Percent Used 100 100 -Saline Lot Number [id number] -Topical Lidocaine (%) 5 -Bleeding Controlled with NA Pressure -Offloading No No -Treatment Response Procedure Procedure Tolerated Well Tolerated Well Pain Scale: 0-10 Numeric Is Patient Pain Free? No Yes Wound debrided: Right anterior lower leg Laterality: Right Type of Debridement: Excisional debridement Anesthesia Used: 4% Lidocaine Solution Depth: in the subcutaneous layer Percentage of wound debrided: 100 Instrument Used: 7mm curette Tissue Removed: Adherent slough, fibrin, hyperkeratotic tissue Severity: Fat Layer Exposed Amount of bleeding with debridement: Mild Bleeding Controlled with: Pressure Patient tolerated procedure well Assessment/Plan Assessment: Ulcer right anterior lower leg. Pain right lower leg. Edema lower extremity. Other comorbidities Plan: Patient was examined and evaluated again today. A subcutaneous debridement was performed as noted in the clinical panel. Once complete the ulcer site was carefully cleansed with normal sterile saline, and then dressed with epifix #4, followed by wound veil, steri strips, and a dry sterile dressing and tubigrip. Patient is to keep dressing clean, dry, and intact. She was instructed to not disturb the dressing below the steri strips and wound veil. She can change the outer dressing if drainage is noted. Keeping pressure off of the ulcer site was discussed in great detail. Baseline lab work including CBC with differential, CMP, prealbumin, hemoglobin A1c was reviewed at past patient visit. LEAS and venous Doppler exams completed and results reviewed showing the patient has sufficient blood flow. I also recommend nutritional supplementation with a high-protein diet in order to optimize ulcer healing potential. The patient was educated on all signs and symptoms of local and systemic infection and she is to go to the emergency room immediately should she notice any of these. All questions were answered to the patient's satisfaction. Smoking cessation was discussed again today. The patient will follow-up in clinic in 1 week to check on progress, or sooner if needed.
--- NOTE | 2018-06-09 12:11 | PN.PCM_ITS ---
(1) Ulcer of right lower extremity with fat layer exposed Status: Acute Current Visit: No Code(s): L97.912 - Non-pressure chronic ulcer of unspecified part of right lower leg with fat layer exposed (2) Pain in right lower leg Status: Acute Current Visit: No Code(s): M79.661 - Pain in right lower leg (3) Edema, lower extremity Status: Acute Current Visit: No Code(s): R60.0 - Localized edema (4) Delayed wound healing Status: Acute Current Visit: No Code(s): T14.8XXD - Other injury of unspecified body region, subsequent encounter Type of Wound Chief Complaint: Right anterior lower leg ulcer/laceration History of Wound: This 57-year-old female was referred to the wound healing center by her primary care doctor for a nonhealing ulcer/laceration to the right anterior lower leg. Patient says this started approximately 3 weeks ago when she shut the car door and it created a laceration to her right lower leg. She said she tried to dress the area with Neosporin and bandages. She continued to notice the area not healing as well as some slight redness and she made an appointment to see her primary care doctor. She was started on antibiotics and has since finished prescriptions for Bactrim and cephalexin. Patient is also been using mupirocin topically to the area. She says that the area is not as red as it used to be, but that the area is still painful. She denies any purulence or extending cellulitis. She also denies any feeling of nausea, vomiting, fever, chills. Progress of Wound: Ulcer continues improving. Denies any signs of infection. Denies nausea, vomiting, fever, or chills. - Physical Exam Vital Signs Temp Pulse Resp BP 96.4 F L 97 18 123/85 H 06/09/18 09:47 06/09/18 09:47 06/09/18 09:47 06/09/18 09:47 General: Alert, Oriented x3, Cooperative, No apparent distress Extremities: Capillary Refill Less than 3 Seconds, No Calf Tenderness, Diminished Peripheral Pulses - Negative Hyun and Bloom sign DP pulses nonpalpable and PT pulses palpable bilateral, Edema - Minor lower extremity edema Skin: Ulcer/ Wound - Ulcer with fat layer exposed to right anterior lower leg. Measurements noted below. Improvement noted again this week. The base ramos nues to be a mixture of adherent slough, fibrin, granular tissue, as well as some slight surrounding hyperkeratotic tissue. There continues to be no probing to bone, no tracking, no undermining, no purulence, no cellulitis, no malodor, no increase in warmth. Wound Measurements and Assessment WC - Nurse 1 - General Ulcer Measurement Start: 06/02/18 10:01 Freq: Status: Active Protocol: Activity Type Activity Date Activity User E-Sign Co-Sign Detail Recorded Client Recorded Date Recorded By Document 06/09/18 09:47 DL [id number] 06/09/18 09:54 DL 06/09/18 09:47 Wound Center Nurse 1 [Ulcer Assessment] #1 R Rubin -Current Size (cm) - Length 1.8 -Current Size (cm) - Width 1.4 -Current Size (cm) - Depth 0.1 -Total Square Cm 2.52 -Photo Taken No -Exudate Amt Small (1-33%) -Exudate Type Serosanguineous -Wound Margin Thickened -Granulation Amt Small (1-33%) -Granulation Quality [place] -Necrosis Amt Large (67-100%) -Necrotic Tissue Type Adherent Slough -Structure Exposed N/A -Texture (Vivian-wound Skin Appearance) Localized Edema Scarring -Moisture (Vivian-wound Skin Appearance Dry/Scaly ) -Color (Vivian-wound Skin Appearance) Hemosiderin Staining -Temperature (Vivian-wound Skin No Abnormality Appearance) (Pt Warm) -Tenderness on Palpation (Vivian-wound Yes Skin Appearance) -Ulcer Cleansing Rinsed/ Irrigated with Saline -Foul Odor after Cleansing No -Anesthetic Used 4% Lidocaine Solution 5% Lidocaine Gel [Edema Assessment] -Right Calf (cm) 31.3 -Right Ankle (cm) 18.3 WC - Nurse 2 - General Ulcer CM Notes Start: 06/02/18 10:01 Freq: Status: Active Protocol: Activity Type Activity Date Activity User E-Sign Co-Sign Detail Recorded Client Recorded Date Recorded By Document 06/09/18 10:25 DV [id number] 06/09/18 10:34 DV 06/09/18 10:25 Wound Center Nurse 2 [Procedure/Treatment] #1 R Rubin -Time 10:27 -Correct Patient Yes -Correct Side, Site, Position Yes -Correct Procedure Yes -Procedure Performed Yes -Type of Procedure Debridement -Clinical Debridement Subcutaneous -Post Debridement Size (cm) - Length 1.5 -Post Debridement Size (cm) - Width 1.0 -Post Debridement Size (cm) - Depth 0.2 -Total Square Cm 1.50 -Wound/Ulcer Outcome Not Healed -Ulcer Cleansing Rinsed/ Irrigated with Saline -Foul Odor after Cleansing No -Bioengineered Tissue No -Type of bioengineered Tissue EPIFIX -Expiration Date 06/09/18 -Product Lot Number [id number] -Percent Used 100 -Saline Lot Number [id number] -Topical Lidocaine (%) 5 -Bleeding Controlled with Pressure -Offloading No -Treatment Response Procedure Tolerated Well [See Physician Procedure note for Specifics] Pain Scale: 0-10 Numeric [Pain] -Is Patient Pain Free? Yes Musculoskeletal: Tenderness - With manipulation of ulcer site Neurological: Sensory exam intact to light touch and pain Psych/Mental Status: Normal Affect, Appropriate Debridement Note Post-Debridement Measurements/Treatment WC - Nurse 2 - General Ulcer CM Notes Start: 06/02/18 10:01 Freq: Status: Active Protocol: Activity Type Activity Date Activity User E-Sign Co-Sign Detail Recorded Client Recorded Date Recorded By Document 06/02/18 10:31 [id number] 06/02/18 10:32 Document 06/09/18 10:25 DV [id number] 06/09/18 10:34 DV 06/02/18 06/09/18 10:31 10:25 Wound Center Nurse 2 #1 R Rubin -Time 10:31 10:27 -Correct Patient Yes Yes -Correct Side, Site, Position Yes Yes -Correct Procedure Yes Yes -Procedure Performed Yes Yes -Type of Procedure Debridement Debridement -Clinical Debridement Subcutaneous Subcutaneous -Post Debridement Size (cm) - Length 1.8 1.5 -Post Debridement Size (cm) - Width 1.3 1.0 -Post Debridement Size (cm) - Depth 0.2 0.2 -Total Square Cm 2.34 1.50 -Wound/Ulcer Outcome Not Healed Not Healed -Ulcer Cleansing Rinsed/ Rinsed/ Irrigated with Irrigated with Saline Saline -Foul Odor after Cleansing No No -Bioengineered Tissue Yes No -Type of bioengineered Tissue EPIFIX EPIFIX -Expiration Date 12/26/22 06/09/18 -Product Lot Number [id number] -Percent Used 100 100 -Saline Lot Number [id number] -Topical Lidocaine (%) 5 -Bleeding Controlled with NA Pressure -Offloading No No -Treatment Response Procedure Procedure Tolerated Well Tolerated Well Pain Scale: 0-10 Numeric Is Patient Pain Free? No Yes Wound debrided: Right anterior lower leg Laterality: Right Type of Debridement: Excisional debridement Anesthesia Used: 4% Lidocaine Solution Depth: in the subcutaneous layer Percentage of wound debrided: 100 Instrument Used: 7mm curette Tissue Removed: Adherent slough, fibrin, hyperkeratotic tissue Severity: Fat Layer Exposed Amount of bleeding with debridement: Mild Bleeding Controlled with: Pressure Patient tolerated procedure well Assessment/Plan Assessment: Ulcer right anterior lower leg. Pain right lower leg. Edema lower extremity. Other comorbidities Plan: Patient was examined and evaluated again today. A subcutaneous debridement was performed as noted in the clinical panel. Once complete the ulcer site was carefully cleansed with normal sterile saline, and then dressed with epifix #4, followed by wound veil, steri strips, and a dry sterile dressing and tubigrip. Patient is to keep dressing clean, dry, and intact. She was instructed to not disturb the dressing below the steri strips and wound veil. She can change the outer dressing if drainage is noted. Keeping pressure off of the ulcer site was discussed in great detail. Baseline lab work including CBC with differential, CMP, prealbumin, hemoglobin A1c was reviewed at past patient visit. LEAS and venous Doppler exams completed and results reviewed showing the patient has sufficient blood flow. I also recommend nutritional supplementation with a high-protein diet in order to optimize ulcer healing potential. The patient was educated on all signs and symptoms of local and systemic infection and she is to go to the emergency room immediately should she notice any of these. All questions were answered to the patient's satisfaction. Smoking cessation was discussed again today. The patient will follow-up in clinic in 1 week to check on progress, or sooner if needed.
[2018-06-16 09:24] VITALS: BP 128/91; PULSE 91; RESP 18; TEMP 36.2; BMI 27.8
--- NOTE | 2018-06-16 09:48 | PCM.WC.PN ---
(1) Ulcer of right lower extremity with fat layer exposed Status: Acute Current Visit: No Code(s): L97.912 - Non-pressure chronic ulcer of unspecified part of right lower leg with fat layer exposed (2) Pain in right lower leg Status: Acute Current Visit: No Code(s): M79.661 - Pain in right lower leg (3) Edema, lower extremity Status: Acute Current Visit: No Code(s): R60.0 - Localized edema (4) Delayed wound healing Status: Acute Current Visit: No Code(s): T14.8XXD - Other injury of unspecified body region, subsequent encounter Type of Wound Chief Complaint: Right anterior lower leg ulcer/laceration History of Wound: This 57-year-old female was referred to the wound healing center by her primary care doctor for a nonhealing ulcer/laceration to the right anterior lower leg. Patient says this started approximately 3 weeks ago when she shut the car door and it created a laceration to her right lower leg. She said she tried to dress the area with Neosporin and bandages. She continued to notice the area not healing as well as some slight redness and she made an appointment to see her primary care doctor. She was started on antibiotics and has since finished prescriptions for Bactrim and cephalexin. Patient is also been using mupirocin topically to the area. She says that the area is not as red as it used to be, but that the area is still painful. She denies any purulence or extending cellulitis. She also denies any feeling of nausea, vomiting, fever, chills. Progress of Wound: Ulcer continues improving. Denies any signs of infection. Denies nausea, vomiting, fever, or chills. - Physical Exam Vital Signs Temp Pulse Resp BP 97.1 F L 91 18 128/91 H 06/16/18 09:24 06/16/18 09:24 06/16/18 09:24 06/16/18 09:24 General: Alert, Oriented x3, Cooperative, No apparent distress Extremities: Capillary Refill Less than 3 Seconds, No Calf Tenderness - Negative Hyun and Bloom sign, Diminished Peripheral Pulses - DP pulses nonpalpable and PT pulses palpable bilateral, Edema - Minor lower extremity edema Skin: Ulcer/ Wound - Ulcer with fat layer exposed to right anterior lower leg. Slight improvement appreciated again this week. The base continues to be a mixture of adherent slough, fibrin, granular tissue, as well as some surrounding hyperkeratotic tissue. There is no probing to bone, no tracking, no undermining, no purulence, no malodor, no extending or surrounding cellulitis, and no increase in warmth noted at this time. Wound Measurements and Assessment WC - Nurse 1 - General Ulcer Measurement Start: 06/02/18 10:01 Freq: Status: Active Protocol: Activity Type Activity Date Activity User E-Sign Co-Sign Detail Recorded Client Recorded Date Recorded By Document 06/16/18 09:24 RB [id number] 06/16/18 09:27 RB 06/16/18 09:24 Wound Center Nurse 1 [Ulcer Assessment] #1 R Rubin -Combined with other wound No -Current Size (cm) - Length 1.5 -Current Size (cm) - Width 1 -Current Size (cm) - Depth 0.1 -Total Square Cm 1.5 -Photo Taken No -Tunneling No -Undermining/Tunneling No -Circular Undermining No -Exudate Amt Small (1-33%) -Exudate Type Serosanguineous -Wound Margin Distinct, Outline Attached -Granulation Amt Large (67-100%) -Granulation Quality [place] -Slough/Fibrin Yes -Necrosis Amt Small (1-33%) -Necrotic Tissue Type Adherent Slough -Structure Exposed N/A -Texture (Vivian-wound Skin Appearance) Assessed -Moisture (Vivian-wound Skin Appearance Assessed ) Dry/Scaly -Color (Vivian-wound Skin Appearance) Assessed Hemosiderin Staining -Temperature (Vivian-wound Skin No Abnormality Appearance) (Pt Warm) -Tenderness on Palpation (Vivian-wound No Skin Appearance) -Ulcer Cleansing Rinsed/ Irrigated with Saline -Foul Odor after Cleansing No -Anesthetic Used 5% Lidocaine Gel [Edema Assessment] -Lower Limb Edema Present Yes -Right Calf (cm) 32.5 -Right Ankle (cm) 18.7 - Nurse 2 - General Ulcer CM Notes Start: 06/02/18 10:01 Freq: Status: Active Protocol: Activity Type Activity Date Activity User E-Sign Co-Sign Detail Recorded Client Recorded Date Recorded By Document 06/16/18 09:35 DV [id number] 06/16/18 09:43 DV 06/16/18 09:35 Wound Center Nurse 2 [Procedure/Treatment] #1 R Rubin -Time 09:36 -Correct Patient Yes -Correct Side, Site, Position Yes -Correct Procedure Yes -Procedure Performed Yes -Type of Procedure Debridement -Clinical Debridement Subcutaneous -Post Debridement Size (cm) - Length 1.5 -Post Debridement Size (cm) - Width 0.9 -Post Debridement Size (cm) - Depth 0.2 -Total Square Cm 1.35 -Wound/Ulcer Outcome Not Healed -Ulcer Cleansing Rinsed/ Irrigated with Saline -Foul Odor after Cleansing No -Bioengineered Tissue Yes -Type of bioengineered Tissue EPIFIX -Expiration Date 01/26/23 -Product Lot Number [id number] -Percent Used 100 -Saline Lot Number [id number] -Topical Lidocaine (%) 4 -Bleeding Controlled with Pressure -Offloading No -Treatment Response Procedure Tolerated Well [See Physician Procedure note for Specifics] Musculoskeletal: Tenderness - With manipulation of ulcer site Neurological: Sensory exam intact to light touch and pain Psych/Mental Status: Normal Affect, Appropriate Debridement Note Post-Debridement Measurements/Treatment WC - Nurse 2 - General Ulcer CM Notes Start: 06/02/18 10:01 Freq: Status: Active Protocol: Activity Type Activity Date Activity User E-Sign Co-Sign Detail Recorded Client Recorded Date Recorded By Document 06/02/18 10:31 [id number] 06/02/18 10:32 Document 06/09/18 10:25 DV [id number] 06/09/18 10:34 DV Document 06/16/18 09:35 DV [id number] 06/16/18 09:43 DV 06/02/18 06/09/18 06/16/18 10:31 10:25 09:35 Wound Center Nurse 2 #1 R Rubin -Time 10:31 10:27 09:36 -Correct Patient Yes Yes Yes -Correct Side, Site, Position Yes Yes Yes -Correct Procedure Yes Yes Yes -Procedure Performed Yes Yes Yes -Type of Procedure Debridement Debridement Debridement -Clinical Debridement Subcutaneous Subcutaneous Subcutaneous -Post Debridement Size (cm) - Length 1.8 1.5 1.5 -Post Debridement Size (cm) - Width 1.3 1.0 0.9 -Post Debridement Size (cm) - Depth 0.2 0.2 0.2 -Total Square Cm 2.34 1.50 1.35 -Wound/Ulcer Outcome Not Healed Not Healed Not Healed -Ulcer Cleansing Rinsed/ Rinsed/ Rinsed/ Irrigated with Irrigated with Irrigated with Saline Saline Saline -Foul Odor after Cleansing No No No -Bioengineered Tissue Yes No Yes -Type of bioengineered Tissue EPIFIX EPIFIX EPIFIX -Expiration Date 12/26/22 06/09/18 01/26/23 -Product Lot Number [id number] -Percent Used 100 100 100 -Saline Lot Number [id number] -Topical Lidocaine (%) 5 4 -Bleeding Controlled with NA Pressure Pressure -Offloading No No No -Treatment Response Procedure Procedure Procedure Tolerated Well Tolerated Well Tolerated Well Pain Scale: 0-10 Numeric Is Patient Pain Free? No Yes Wound debrided: Right anterior lower leg Laterality: Right Type of Debridement: Excisional debridement Anesthesia Used: 4% Lidocaine Solution Depth: in the subcutaneous layer Percentage of wound debrided: 100 Instrument Used: 7mm curette Tissue Removed: Adherent slough, fibrin, hyperkeratotic tissue Severity: Fat Layer Exposed Amount of bleeding with debridement: Mild Bleeding Controlled with: Pressure Patient tolerated procedure well Assessment/Plan Assessment: Ulcer right anterior lower leg. Pain right lower leg. Edema lower extremity. Other comorbidities Plan: Patient was examined and evaluated again today. A subcutaneous debridement was performed as noted in the clinical panel. Once complete the ulcer site was carefully cleansed with normal sterile saline, and then dressed with epifix #5, followed by wound veil, steri strips, and a dry sterile dressing and tubigrip. Patient is to keep dressing clean, dry, and intact. She was instructed to not disturb the dressing below the steri strips and wound veil. She can change the outer dressing if drainage is noted. Keeping pressure off of the ulcer site was discussed in great detail. Baseline lab work including CBC with differential, CMP, prealbumin, hemoglobin A1c was reviewed at past patient visit. LEAS and venous Doppler exams completed and results reviewed showing the patient has sufficient blood flow. I also recommend nutritional supplementation with a high-protein diet in order to optimize ulcer healing potential. Smoking cessation was discussed again today. The patient was educated on all signs and symptoms of local and systemic infection and she is to go to the emergency room immediately should she notice any of these. All questions were answered to the patient's satisfaction. The patient will follow-up in clinic in 1 week to check on progress, or sooner if needed.
--- NOTE | 2018-06-16 09:52 | PN.PCM_ITS ---
(1) Ulcer of right lower extremity with fat layer exposed Status: Acute Current Visit: No Code(s): L97.912 - Non-pressure chronic ulcer of unspecified part of right lower leg with fat layer exposed (2) Pain in right lower leg Status: Acute Current Visit: No Code(s): M79.661 - Pain in right lower leg (3) Edema, lower extremity Status: Acute Current Visit: No Code(s): R60.0 - Localized edema (4) Delayed wound healing Status: Acute Current Visit: No Code(s): T14.8XXD - Other injury of unspecified body region, subsequent encounter Type of Wound Chief Complaint: Right anterior lower leg ulcer/laceration History of Wound: This 57-year-old female was referred to the wound healing center by her primary care doctor for a nonhealing ulcer/laceration to the right anterior lower leg. Patient says this started approximately 3 weeks ago when she shut the car door and it created a laceration to her right lower leg. She said she tried to dress the area with Neosporin and bandages. She continued to notice the area not healing as well as some slight redness and she made an appointment to see her primary care doctor. She was started on antibiotics and has since finished prescriptions for Bactrim and cephalexin. Patient is also been using mupirocin topically to the area. She says that the area is not as red as it used to be, but that the area is still painful. She denies any purulence or extending cellulitis. She also denies any feeling of nausea, vomiting, fever, chills. Progress of Wound: Ulcer continues improving. Denies any signs of infection. Denies nausea, vomiting, fever, or chills. - Physical Exam Vital Signs Temp Pulse Resp BP 97.1 F L 91 18 128/91 H 06/16/18 09:24 06/16/18 09:24 06/16/18 09:24 06/16/18 09:24 General: Alert, Oriented x3, Cooperative, No apparent distress Extremities: Capillary Refill Less than 3 Seconds, No Calf Tenderness - Negative Hyun and Bloom sign, Diminished Peripheral Pulses - DP pulses nonpalpable and PT pulses palpable bilateral, Edema - Minor lower extremity edema Skin: Ulcer/ Wound - Ulcer with fat layer exposed to right anterior lower leg. Slight improvement appreciated again this week. The base continues to be a mixture of adherent slough, fibrin, granular tissue, as well as some surrounding hyperkeratotic tissue. There is no probing to bone, no tracking, no undermining, no purulence, no malodor, no extending or surrounding cellulitis, and no increase in warmth noted at this time. Wound Measurements and Assessment WC - Nurse 1 - General Ulcer Measurement Start: 06/02/18 10:01 Freq: Status: Active Protocol: Activity Type Activity Date Activity User E-Sign Co-Sign Detail Recorded Client Recorded Date Recorded By Document 06/16/18 09:24 RB [id number] 06/16/18 09:27 RB 06/16/18 09:24 Wound Center Nurse 1 [Ulcer Assessment] #1 R Rubin -Combined with other wound No -Current Size (cm) - Length 1.5 -Current Size (cm) - Width 1 -Current Size (cm) - Depth 0.1 -Total Square Cm 1.5 -Photo Taken No -Tunneling No -Undermining/Tunneling No -Circular Undermining No -Exudate Amt Small (1-33%) -Exudate Type Serosanguineous -Wound Margin Distinct, Outline Attached -Granulation Amt Large (67-100%) -Granulation Quality [place] -Slough/Fibrin Yes -Necrosis Amt Small (1-33%) -Necrotic Tissue Type Adherent Slough -Structure Exposed N/A -Texture (Vivian-wound Skin Appearance) Assessed -Moisture (Vivian-wound Skin Appearance Assessed ) Dry/Scaly -Color (Vivian-wound Skin Appearance) Assessed Hemosiderin Staining -Temperature (Vivian-wound Skin No Abnormality Appearance) (Pt Warm) -Tenderness on Palpation (Vivian-wound No Skin Appearance) -Ulcer Cleansing Rinsed/ Irrigated with Saline -Foul Odor after Cleansing No -Anesthetic Used 5% Lidocaine Gel [Edema Assessment] -Lower Limb Edema Present Yes -Right Calf (cm) 32.5 -Right Ankle (cm) 18.7 - Nurse 2 - General Ulcer CM Notes Start: 06/02/18 10:01 Freq: Status: Active Protocol: Activity Type Activity Date Activity User E-Sign Co-Sign Detail Recorded Client Recorded Date Recorded By Document 06/16/18 09:35 DV [id number] 06/16/18 09:43 DV 06/16/18 09:35 Wound Center Nurse 2 [Procedure/Treatment] #1 R Rubin -Time 09:36 -Correct Patient Yes -Correct Side, Site, Position Yes -Correct Procedure Yes -Procedure Performed Yes -Type of Procedure Debridement -Clinical Debridement Subcutaneous -Post Debridement Size (cm) - Length 1.5 -Post Debridement Size (cm) - Width 0.9 -Post Debridement Size (cm) - Depth 0.2 -Total Square Cm 1.35 -Wound/Ulcer Outcome Not Healed -Ulcer Cleansing Rinsed/ Irrigated with Saline -Foul Odor after Cleansing No -Bioengineered Tissue Yes -Type of bioengineered Tissue EPIFIX -Expiration Date 01/26/23 -Product Lot Number [id number] -Percent Used 100 -Saline Lot Number [id number] -Topical Lidocaine (%) 4 -Bleeding Controlled with Pressure -Offloading No -Treatment Response Procedure Tolerated Well [See Physician Procedure note for Specifics] Musculoskeletal: Tenderness - With manipulation of ulcer site Neurological: Sensory exam intact to light touch and pain Psych/Mental Status: Normal Affect, Appropriate Debridement Note Post-Debridement Measurements/Treatment WC - Nurse 2 - General Ulcer CM Notes Start: 06/02/18 10:01 Freq: Status: Active Protocol: Activity Type Activity Date Activity User E-Sign Co-Sign Detail Recorded Client Recorded Date Recorded By Document 06/02/18 10:31 [id number] 06/02/18 10:32 Document 06/09/18 10:25 DV [id number] 06/09/18 10:34 DV Document 06/16/18 09:35 DV [id number] 06/16/18 09:43 DV 06/02/18 06/09/18 06/16/18 10:31 10:25 09:35 Wound Center Nurse 2 #1 R Rubin -Time 10:31 10:27 09:36 -Correct Patient Yes Yes Yes -Correct Side, Site, Position Yes Yes Yes -Correct Procedure Yes Yes Yes -Procedure Performed Yes Yes Yes -Type of Procedure Debridement Debridement Debridement -Clinical Debridement Subcutaneous Subcutaneous Subcutaneous -Post Debridement Size (cm) - Length 1.8 1.5 1.5 -Post Debridement Size (cm) - Width 1.3 1.0 0.9 -Post Debridement Size (cm) - Depth 0.2 0.2 0.2 -Total Square Cm 2.34 1.50 1.35 -Wound/Ulcer Outcome Not Healed Not Healed Not Healed -Ulcer Cleansing Rinsed/ Rinsed/ Rinsed/ Irrigated with Irrigated with Irrigated with Saline Saline Saline -Foul Odor after Cleansing No No No -Bioengineered Tissue Yes No Yes -Type of bioengineered Tissue EPIFIX EPIFIX EPIFIX -Expiration Date 12/26/22 06/09/18 01/26/23 -Product Lot Number [id number] -Percent Used 100 100 100 -Saline Lot Number [id number] -Topical Lidocaine (%) 5 4 -Bleeding Controlled with NA Pressure Pressure -Offloading No No No -Treatment Response Procedure Procedure Procedure Tolerated Well Tolerated Well Tolerated Well Pain Scale: 0-10 Numeric Is Patient Pain Free? No Yes Wound debrided: Right anterior lower leg Laterality: Right Type of Debridement: Excisional debridement Anesthesia Used: 4% Lidocaine Solution Depth: in the subcutaneous layer Percentage of wound debrided: 100 Instrument Used: 7mm curette Tissue Removed: Adherent slough, fibrin, hyperkeratotic tissue Severity: Fat Layer Exposed Amount of bleeding with debridement: Mild Bleeding Controlled with: Pressure Patient tolerated procedure well Assessment/Plan Assessment: Ulcer right anterior lower leg. Pain right lower leg. Edema lower extremity. Other comorbidities Plan: Patient was examined and evaluated again today. A subcutaneous debridement was performed as noted in the clinical panel. Once complete the ulcer site was carefully cleansed with normal sterile saline, and then dressed with epifix #5, followed by wound veil, steri strips, and a dry sterile dressing and tubigrip. Patient is to keep dressing clean, dry, and intact. She was instructed to not disturb the dressing below the steri strips and wound veil. She can change the outer dressing if drainage is noted. Keeping pressure off of the ulcer site was discussed in great detail. Baseline lab work including CBC with differential, CMP, prealbumin, hemoglobin A1c was reviewed at past patient visit. LEAS and venous Doppler exams completed and results reviewed showing the patient has sufficient blood flow. I also recommend nutritional supplementation with a high-protein diet in order to optimize ulcer healing potential. Smoking cessation was discussed again today. The patient was educated on all signs and symptoms of local and systemic infection and she is to go to the emergency room immediately should she notice any of these. All questions were answered to the patient's satisfaction. The patient will follow-up in clinic in 1 week to check on progress, or sooner if needed.
== END 2018-06-27 23:59 ==
LOC: WC 09:15
PROVIDERS: Family Provider Family Medicine; PCP Family Medicine; Referring Provider Podiatrist; Visit Provider Podiatrist
DX: L97.812 Non-pressure chronic ulcer of other part of right lower leg with fat layer exposed (principal); R60.0 Localized edema; M79.661 Pain in right lower leg
CPT/HCPCS: 15271; 15275; Q4131; Q4172

== ENCOUNTER 2018-07-21 10:30 | Outpatient (RCR) | payer MEDICAID, SELFPAY ==
[2018-06-28 01:05] VITALS: BP 128/91; PULSE 91; RESP 18; TEMP 36.2
[2018-07-14 10:51] VITALS: BP 109/70; PULSE 78; RESP 18; TEMP 36.3; BMI 27.8
--- NOTE | 2018-07-14 12:38 | PCM.WC.PN ---
(1) Ulcer of right lower extremity with fat layer exposed Status: Acute Current Visit: No Code(s): L97.912 - Non-pressure chronic ulcer of unspecified part of right lower leg with fat layer exposed (2) Pain in right lower leg Status: Acute Current Visit: No Code(s): M79.661 - Pain in right lower leg (3) Edema, lower extremity Status: Acute Current Visit: No Code(s): R60.0 - Localized edema (4) Delayed wound healing Status: Acute Current Visit: No Code(s): T14.8XXD - Other injury of unspecified body region, subsequent encounter Type of Wound Chief Complaint: Right anterior lower leg ulcer History of Wound: This 57-year-old female was referred to the wound healing center by her primary care doctor for a nonhealing ulcer to the right anterior lower leg. Patient says this started approximately 3 weeks ago when she shut the car door. She said she tried to dress the area with Neosporin and bandages. She continued to notice the area not healing as well as some slight redness and she made an appointment to see her primary care doctor. She was started on antibiotics and has since finished prescriptions for Bactrim and cephalexin. Patient is also been using mupirocin topically to the area. She says that the area is not as red as it used to be, but that the area is still painful. She denies any purulence or extending cellulitis. She also denies any feeling of nausea, vomiting, fever, chills. Progress of Wound: Patient presents after missing 3 weeks of appointments following a procedure she had done on her heart. Ulcer continues to show improvement. Denies any signs of infection. Denies nausea, vomiting, fever, or chills. - Physical Exam Vital Signs Temp Pulse Resp BP 97.3 F L 78 18 109/70 07/14/18 10:51 07/14/18 10:51 07/14/18 10:51 07/14/18 10:51 General: Alert, Oriented x3, Cooperative, No apparent distress Extremities: Capillary Refill Less than 3 Seconds, No Calf Tenderness - Negative Hyun and Bloom sign, Diminished Peripheral Pulses - DP pulses nonpalpable and PT pulses palpable bilateral, Edema - Minor lower extremity edema Skin: Ulcer/ Wound - Ulcer with fat layer exposed to right anterior lower leg. Significant improvement appreciated since her last visit. The base continues to be a mixture of adherent slough, fibrin, granular tissue, as well as some surrounding hyperkeratotic tissue. There is no probing to bone, no tracking, no undermining, no purulence, no malodor, no extending or surrounding cellulitis, and no increase in warmth noted at this time. Wound Measurements and Assessment - Nurse 1 - General Ulcer Measurement Start: 07/14/18 10:51 Freq: Status: Active Protocol: Activity Type Activity Date Activity User E-Sign Co-Sign Detail Recorded Client Recorded Date Recorded By Document 07/14/18 10:51 [facility] [id number] 07/14/18 10:57 [facility] 07/14/18 10:51 Wound Center Nurse 1 [Ulcer Assessment] #1 R Rubin -Combined with other wound No -Current Size (cm) - Length 0.1 -Current Size (cm) - Width 0.1 -Current Size (cm) - Depth 0.1 -Total Square Cm 0.01 -Date of Last Picture (Recall this 07/14/18 field) -Photo Taken Yes -Epithelialization Large 67-100% -Tunneling No -Undermining/Tunneling No -Circular Undermining No -Exudate Amt None Present -Texture (Vivian-wound Skin Appearance) Scarring -Moisture (Vivian-wound Skin Appearance Dry/Scaly ) -Color (Vivian-wound Skin Appearance) Assessed -Temperature (Vivian-wound Skin No Abnormality Appearance) (Pt Warm) -Tenderness on Palpation (Vivian-wound No Skin Appearance) -Ulcer Cleansing Rinsed/ Irrigated with Saline -Foul Odor after Cleansing No -Anesthetic Used 4% Lidocaine Solution [Edema Assessment] -Lower Limb Edema Present No -Right Calf (cm) 32.2 -Right Ankle (cm) 18.6 WC - Nurse 2 - General Ulcer CM Notes Start: 07/14/18 10:51 Freq: Status: Active Protocol: Activity Type Activity Date Activity User E-Sign Co-Sign Detail Recorded Client Recorded Date Recorded By Document 07/14/18 11:08 DV [id number] 07/14/18 11:22 DV 07/14/18 11:08 Wound Center Nurse 2 [Procedure/Treatment] #1 R Rubin -Time 11:10 -Correct Patient Yes -Correct Side, Site, Position Yes -Correct Procedure Yes -Procedure Performed Yes -Type of Procedure Debridement -Clinical Debridement Subcutaneous -Post Debridement Size (cm) - Length 0.3 -Post Debridement Size (cm) - Width 0.4 -Post Debridement Size (cm) - Depth 0.1 -Total Square Cm 0.12 -Wound/Ulcer Outcome Not Healed -Ulcer Cleansing Rinsed/ Irrigated with Saline -Foul Odor after Cleansing No -Bioengineered Tissue Yes -Type of bioengineered Tissue EPIFIX -Expiration Date 07/05/22 -Product Lot Number [id number] -Percent Used 1 -Saline Lot Number [id number] -Topical Lidocaine (%) 4 -Bleeding Controlled with Pressure -Offloading No -Treatment Response Procedure Tolerated Well [See Physician Procedure note for Specifics] Pain Scale: 0-10 Numeric [Pain] -Is Patient Pain Free? Yes Musculoskeletal: Tenderness - Minor tenderness with manipulation of ulcer site Neurological: Sensory exam intact to light touch and pain Psych/Mental Status: Normal Affect, Appropriate Debridement Note Post-Debridement Measurements/Treatment WC - Nurse 2 - General Ulcer CM Notes Start: 07/14/18 10:51 Freq: Status: Active Protocol: Activity Type Activity Date Activity User E-Sign Co-Sign Detail Recorded Client Recorded Date Recorded By Document 07/14/18 11:08 DV [id number] 07/14/18 11:22 DV 07/14/18 11:08 Wound Center Nurse 2 #1 R Rubin -Time 11:10 -Correct Patient Yes -Correct Side, Site, Position Yes -Correct Procedure Yes -Procedure Performed Yes -Type of Procedure Debridement -Clinical Debridement Subcutaneous -Post Debridement Size (cm) - Length 0.3 -Post Debridement Size (cm) - Width 0.4 -Post Debridement Size (cm) - Depth 0.1 -Total Square Cm 0.12 -Wound/Ulcer Outcome Not Healed -Ulcer Cleansing Rinsed/ Irrigated with Saline -Foul Odor after Cleansing No -Bioengineered Tissue Yes -Type of bioengineered Tissue EPIFIX -Expiration Date 07/05/22 -Product Lot Number [id number] -Percent Used 1 -Saline Lot Number [id number] -Topical Lidocaine (%) 4 -Bleeding Controlled with Pressure -Offloading No -Treatment Response Procedure Tolerated Well Pain Scale: 0-10 Numeric Is Patient Pain Free? Yes Wound debrided: Right anterior lower leg Laterality: Right Type of Debridement: Excisional debridement Anesthesia Used: 4% Lidocaine Solution Depth: in the subcutaneous layer Percentage of wound debrided: 100 Instrument Used: 7mm curette Tissue Removed: Adherent slough, fibrin, hyperkeratotic tissue Severity: Fat Layer Exposed Amount of bleeding with debridement: Mild Bleeding Controlled with: Pressure Patient tolerated procedure well Assessment/Plan Assessment: Ulcer right anterior lower leg. Pain right lower leg. Edema lower extremity. Other comorbidities Plan: Patient was examined and evaluated again today, after missing 3 weeks worth of appointments following a heart procedure she had done. A subcutaneous debridement was performed as noted in the clinical panel. Once complete the ulcer site was carefully cleansed with normal sterile saline, and then dressed with epifix #6, followed by wound veil, steri strips, and a dry sterile dressing and tubigrip. Patient is to keep dressing clean, dry, and intact. She was instructed to not disturb the dressing below the steri strips and wound veil. She can change the outer dressing if drainage is noted. Keeping pressure off of the ulcer site was discussed in great detail. Baseline lab work including CBC with differential, CMP, prealbumin, hemoglobin A1c was reviewed at past patient visit. LEAS and venous Doppler exams completed and results reviewed showing the patient has sufficient blood flow. I also recommend nutritional supplementation with a high-protein diet in order to optimize ulcer healing potential. Smoking cessation was discussed again today. The patient was educated on all signs and symptoms of local and systemic infection and she is to go to the emergency room immediately should she notice any of these. All questions were answered to the patient's satisfaction. The patient will follow-up in clinic in 1 week to check on progress, or sooner if needed.
--- NOTE | 2018-07-14 12:42 | PN.PCM_ITS ---
(1) Ulcer of right lower extremity with fat layer exposed Status: Acute Current Visit: No Code(s): L97.912 - Non-pressure chronic ulcer of unspecified part of right lower leg with fat layer exposed (2) Pain in right lower leg Status: Acute Current Visit: No Code(s): M79.661 - Pain in right lower leg (3) Edema, lower extremity Status: Acute Current Visit: No Code(s): R60.0 - Localized edema (4) Delayed wound healing Status: Acute Current Visit: No Code(s): T14.8XXD - Other injury of unspecified body region, subsequent encounter Type of Wound Chief Complaint: Right anterior lower leg ulcer History of Wound: This 57-year-old female was referred to the wound healing center by her primary care doctor for a nonhealing ulcer to the right anterior lower leg. Patient says this started approximately 3 weeks ago when she shut the car door. She said she tried to dress the area with Neosporin and bandages. She continued to notice the area not healing as well as some slight redness and she made an appointment to see her primary care doctor. She was started on antibiotics and has since finished prescriptions for Bactrim and cephalexin. Patient is also been using mupirocin topically to the area. She says that the area is not as red as it used to be, but that the area is still painful. She denies any purulence or extending cellulitis. She also denies any feeling of nausea, vomiting, fever, chills. Progress of Wound: Patient presents after missing 3 weeks of appointments following a procedure she had done on her heart. Ulcer continues to show improvement. Denies any signs of infection. Denies nausea, vomiting, fever, or chills. - Physical Exam Vital Signs Temp Pulse Resp BP 97.3 F L 78 18 109/70 07/14/18 10:51 07/14/18 10:51 07/14/18 10:51 07/14/18 10:51 General: Alert, Oriented x3, Cooperative, No apparent distress Extremities: Capillary Refill Less than 3 Seconds, No Calf Tenderness - Negative Hyun and Bloom sign, Diminished Peripheral Pulses - DP pulses nonpalpable and PT pulses palpable bilateral, Edema - Minor lower extremity edema Skin: Ulcer/ Wound - Ulcer with fat layer exposed to right anterior lower leg. Significant improvement appreciated since her last visit. The base continues to be a mixture of adherent slough, fibrin, granular tissue, as well as some surrounding hyperkeratotic tissue. There is no probing to bone, no tracking, no undermining, no purulence, no malodor, no extending or surrounding cellulitis, and no increase in warmth noted at this time. Wound Measurements and Assessment - Nurse 1 - General Ulcer Measurement Start: 07/14/18 10:51 Freq: Status: Active Protocol: Activity Type Activity Date Activity User E-Sign Co-Sign Detail Recorded Client Recorded Date Recorded By Document 07/14/18 10:51 [facility] [id number] 07/14/18 10:57 [facility] 07/14/18 10:51 Wound Center Nurse 1 [Ulcer Assessment] #1 R Rubin -Combined with other wound No -Current Size (cm) - Length 0.1 -Current Size (cm) - Width 0.1 -Current Size (cm) - Depth 0.1 -Total Square Cm 0.01 -Date of Last Picture (Recall this 07/14/18 field) -Photo Taken Yes -Epithelialization Large 67-100% -Tunneling No -Undermining/Tunneling No -Circular Undermining No -Exudate Amt None Present -Texture (Vivian-wound Skin Appearance) Scarring -Moisture (Vivian-wound Skin Appearance Dry/Scaly ) -Color (Vivian-wound Skin Appearance) Assessed -Temperature (Vivian-wound Skin No Abnormality Appearance) (Pt Warm) -Tenderness on Palpation (Vivian-wound No Skin Appearance) -Ulcer Cleansing Rinsed/ Irrigated with Saline -Foul Odor after Cleansing No -Anesthetic Used 4% Lidocaine Solution [Edema Assessment] -Lower Limb Edema Present No -Right Calf (cm) 32.2 -Right Ankle (cm) 18.6 WC - Nurse 2 - General Ulcer CM Notes Start: 07/14/18 10:51 Freq: Status: Active Protocol: Activity Type Activity Date Activity User E-Sign Co-Sign Detail Recorded Client Recorded Date Recorded By Document 07/14/18 11:08 DV [id number] 07/14/18 11:22 DV 07/14/18 11:08 Wound Center Nurse 2 [Procedure/Treatment] #1 R Rubin -Time 11:10 -Correct Patient Yes -Correct Side, Site, Position Yes -Correct Procedure Yes -Procedure Performed Yes -Type of Procedure Debridement -Clinical Debridement Subcutaneous -Post Debridement Size (cm) - Length 0.3 -Post Debridement Size (cm) - Width 0.4 -Post Debridement Size (cm) - Depth 0.1 -Total Square Cm 0.12 -Wound/Ulcer Outcome Not Healed -Ulcer Cleansing Rinsed/ Irrigated with Saline -Foul Odor after Cleansing No -Bioengineered Tissue Yes -Type of bioengineered Tissue EPIFIX -Expiration Date 07/05/22 -Product Lot Number [id number] -Percent Used 1 -Saline Lot Number [id number] -Topical Lidocaine (%) 4 -Bleeding Controlled with Pressure -Offloading No -Treatment Response Procedure Tolerated Well [See Physician Procedure note for Specifics] Pain Scale: 0-10 Numeric [Pain] -Is Patient Pain Free? Yes Musculoskeletal: Tenderness - Minor tenderness with manipulation of ulcer site Neurological: Sensory exam intact to light touch and pain Psych/Mental Status: Normal Affect, Appropriate Debridement Note Post-Debridement Measurements/Treatment WC - Nurse 2 - General Ulcer CM Notes Start: 07/14/18 10:51 Freq: Status: Active Protocol: Activity Type Activity Date Activity User E-Sign Co-Sign Detail Recorded Client Recorded Date Recorded By Document 07/14/18 11:08 DV [id number] 07/14/18 11:22 DV 07/14/18 11:08 Wound Center Nurse 2 #1 R Rubin -Time 11:10 -Correct Patient Yes -Correct Side, Site, Position Yes -Correct Procedure Yes -Procedure Performed Yes -Type of Procedure Debridement -Clinical Debridement Subcutaneous -Post Debridement Size (cm) - Length 0.3 -Post Debridement Size (cm) - Width 0.4 -Post Debridement Size (cm) - Depth 0.1 -Total Square Cm 0.12 -Wound/Ulcer Outcome Not Healed -Ulcer Cleansing Rinsed/ Irrigated with Saline -Foul Odor after Cleansing No -Bioengineered Tissue Yes -Type of bioengineered Tissue EPIFIX -Expiration Date 07/05/22 -Product Lot Number [id number] -Percent Used 1 -Saline Lot Number [id number] -Topical Lidocaine (%) 4 -Bleeding Controlled with Pressure -Offloading No -Treatment Response Procedure Tolerated Well Pain Scale: 0-10 Numeric Is Patient Pain Free? Yes Wound debrided: Right anterior lower leg Laterality: Right Type of Debridement: Excisional debridement Anesthesia Used: 4% Lidocaine Solution Depth: in the subcutaneous layer Percentage of wound debrided: 100 Instrument Used: 7mm curette Tissue Removed: Adherent slough, fibrin, hyperkeratotic tissue Severity: Fat Layer Exposed Amount of bleeding with debridement: Mild Bleeding Controlled with: Pressure Patient tolerated procedure well Assessment/Plan Assessment: Ulcer right anterior lower leg. Pain right lower leg. Edema lower extremity. Other comorbidities Plan: Patient was examined and evaluated again today, after missing 3 weeks worth of appointments following a heart procedure she had done. A subcutaneous debridement was performed as noted in the clinical panel. Once complete the ulcer site was carefully cleansed with normal sterile saline, and then dressed with epifix #6, followed by wound veil, steri strips, and a dry sterile dressing and tubigrip. Patient is to keep dressing clean, dry, and intact. She was instructed to not disturb the dressing below the steri strips and wound veil. She can change the outer dressing if drainage is noted. Keeping pressure off of the ulcer site was discussed in great detail. Baseline lab work including CBC with differential, CMP, prealbumin, hemoglobin A1c was reviewed at past patient visit. LEAS and venous Doppler exams completed and results reviewed showing the patient has sufficient blood flow. I also recommend nutritional supplementation with a high-protein diet in order to optimize ulcer healing potential. Smoking cessation was discussed again today. The patient was educated on all signs and symptoms of local and systemic infection and she is to go to the emergency room immediately should she notice any of these. All questions were answered to the patient's satisfaction. The patient will follow-up in clinic in 1 week to check on progress, or sooner if needed.
[2018-07-21 10:32] VITALS: BP 115/76; PULSE 98; RESP 22; TEMP 36; BMI 27.8
--- NOTE | 2018-07-21 10:42 | PCM.WC.PN ---
(1) Ulcer of right lower extremity with fat layer exposed Status: Acute Current Visit: No Code(s): L97.912 - Non-pressure chronic ulcer of unspecified part of right lower leg with fat layer exposed (2) Pain in right lower leg Status: Acute Current Visit: No Code(s): M79.661 - Pain in right lower leg (3) Edema, lower extremity Status: Acute Current Visit: No Code(s): R60.0 - Localized edema (4) Delayed wound healing Status: Acute Current Visit: No Code(s): T14.8XXD - Other injury of unspecified body region, subsequent encounter Type of Wound Chief Complaint: Right anterior lower leg ulcer History of Wound: This 57-year-old female was referred to the wound healing center by her primary care doctor for a nonhealing ulcer to the right anterior lower leg. Patient says this started approximately 3 weeks ago when she shut the car door. She said she tried to dress the area with Neosporin and bandages. She continued to notice the area not healing as well as some slight redness and she made an appointment to see her primary care doctor. She was started on antibiotics and has since finished prescriptions for Bactrim and cephalexin. Patient is also been using mupirocin topically to the area. She says that the area is not as red as it used to be, but that the area is still painful. She denies any purulence or extending cellulitis. She also denies any feeling of nausea, vomiting, fever, chills. Progress of Wound: Patient appears healed today without any complications. - Physical Exam Vital Signs Temp Pulse Resp BP 96.8 F L 98 22 H 115/76 07/21/18 10:32 07/21/18 10:32 07/21/18 10:32 07/21/18 10:32 General: Alert, Oriented x3, Cooperative, No apparent distress Extremities: Capillary Refill Less than 3 Seconds, No Calf Tenderness, Diminished Peripheral Pulses - Negative Hyun and Bloom sign DP pulses nonpalpable and PT pulses palpable bilateral, Edema - Minor lower extremity edema Skin: Ulcer/ Wound - Ulcer site appears healed at this time to right anterior lower leg. There are no signs of infection appreciated. Wound Measurements and Assessment WC - Nurse 1 - General Ulcer Measurement Start: 07/14/18 10:51 Freq: Status: Active Protocol: Activity Type Activity Date Activity User E-Sign Co-Sign Detail Recorded Client Recorded Date Recorded By Document 07/21/18 10:32 [id number] 07/21/18 10:34 07/21/18 10:32 Wound Center Nurse 1 [Ulcer Assessment] #1 R Rubin -Combined with other wound No -Current Size (cm) - Length 0.1 -Current Size (cm) - Width 0.1 -Current Size (cm) - Depth 0.1 -Total Square Cm 0.01 -Date of Last Picture (Recall this 07/21/18 field) -Photo Taken Yes -Epithelialization Large 67-100% -Tunneling No -Undermining/Tunneling No -Circular Undermining No -Necrosis Amt Medium (34-66%) -Necrotic Tissue Type Eschar -Temperature (Vivian-wound Skin No Abnormality Appearance) (Pt Warm) -Tenderness on Palpation (Vivian-wound No Skin Appearance) -Ulcer Cleansing Rinsed/ Irrigated with Saline -Foul Odor after Cleansing No -Anesthetic Used 4% Lidocaine Solution [Edema Assessment] -Lower Limb Edema Present NA Musculoskeletal: No Tenderness to Palpation of Joints or Extremities Neurological: Sensory exam intact to light touch and pain Psych/Mental Status: Normal Affect, Appropriate Debridement Note Post-Debridement Measurements/Treatment WC - Nurse 2 - General Ulcer CM Notes Start: 07/14/18 10:51 Freq: Status: Active Protocol: Activity Type Activity Date Activity User E-Sign Co-Sign Detail Recorded Client Recorded Date Recorded By Document 07/14/18 11:08 DV [id number] 07/14/18 11:22 DV 07/14/18 11:08 Wound Center Nurse 2 #1 R Rubin -Time 11:10 -Correct Patient Yes -Correct Side, Site, Position Yes -Correct Procedure Yes -Procedure Performed Yes -Type of Procedure Debridement -Clinical Debridement Subcutaneous -Post Debridement Size (cm) - Length 0.3 -Post Debridement Size (cm) - Width 0.4 -Post Debridement Size (cm) - Depth 0.1 -Total Square Cm 0.12 -Wound/Ulcer Outcome Not Healed -Ulcer Cleansing Rinsed/ Irrigated with Saline -Foul Odor after Cleansing No -Bioengineered Tissue Yes -Type of bioengineered Tissue EPIFIX -Expiration Date 07/05/22 -Product Lot Number [id number] -Percent Used 1 -Saline Lot Number [id number] -Topical Lidocaine (%) 4 -Bleeding Controlled with Pressure -Offloading No -Treatment Response Procedure Tolerated Well Pain Scale: 0-10 Numeric Is Patient Pain Free? Yes No debridement was completed today Assessment/Plan Assessment: Ulcer right anterior lower leg. Pain right lower leg. Edema lower extremity. Other comorbidities Plan: Patient was examined and evaluated again today. At this time, the patient is healed. No debridement performed today. Keeping pressure off of the area of previous ulcer was discussed in order to help the skin continue to strengthen and remodel. I also recommend nutritional supplementation with a high-protein diet. Smoking cessation was discussed again today. The patient was educated on all signs and symptoms of local and systemic infection and she is to go to the emergency room immediately should she notice any of these. All questions were answered to the patient's satisfaction. The patient will follow-up in clinic at this time on an as needed basis, but she is to follow back up in office sooner if needed.
--- NOTE | 2018-07-21 10:47 | PN.PCM_ITS ---
(1) Ulcer of right lower extremity with fat layer exposed Status: Acute Current Visit: No Code(s): L97.912 - Non-pressure chronic ulcer of unspecified part of right lower leg with fat layer exposed (2) Pain in right lower leg Status: Acute Current Visit: No Code(s): M79.661 - Pain in right lower leg (3) Edema, lower extremity Status: Acute Current Visit: No Code(s): R60.0 - Localized edema (4) Delayed wound healing Status: Acute Current Visit: No Code(s): T14.8XXD - Other injury of unspecified body region, subsequent encounter Type of Wound Chief Complaint: Right anterior lower leg ulcer History of Wound: This 57-year-old female was referred to the wound healing center by her primary care doctor for a nonhealing ulcer to the right anterior lower leg. Patient says this started approximately 3 weeks ago when she shut the car door. She said she tried to dress the area with Neosporin and bandages. She continued to notice the area not healing as well as some slight redness and she made an appointment to see her primary care doctor. She was started on antibiotics and has since finished prescriptions for Bactrim and cephalexin. Patient is also been using mupirocin topically to the area. She says that the area is not as red as it used to be, but that the area is still painful. She denies any purulence or extending cellulitis. She also denies any feeling of nausea, vomiting, fever, chills. Progress of Wound: Patient appears healed today without any complications. - Physical Exam Vital Signs Temp Pulse Resp BP 96.8 F L 98 22 H 115/76 07/21/18 10:32 07/21/18 10:32 07/21/18 10:32 07/21/18 10:32 General: Alert, Oriented x3, Cooperative, No apparent distress Extremities: Capillary Refill Less than 3 Seconds, No Calf Tenderness, Diminished Peripheral Pulses - Negative Hyun and Bloom sign DP pulses nonpalpable and PT pulses palpable bilateral, Edema - Minor lower extremity edema Skin: Ulcer/ Wound - Ulcer site appears healed at this time to right anterior lower leg. There are no signs of infection appreciated. Wound Measurements and Assessment WC - Nurse 1 - General Ulcer Measurement Start: 07/14/18 10:51 Freq: Status: Active Protocol: Activity Type Activity Date Activity User E-Sign Co-Sign Detail Recorded Client Recorded Date Recorded By Document 07/21/18 10:32 [id number] 07/21/18 10:34 07/21/18 10:32 Wound Center Nurse 1 [Ulcer Assessment] #1 R Rubin -Combined with other wound No -Current Size (cm) - Length 0.1 -Current Size (cm) - Width 0.1 -Current Size (cm) - Depth 0.1 -Total Square Cm 0.01 -Date of Last Picture (Recall this 07/21/18 field) -Photo Taken Yes -Epithelialization Large 67-100% -Tunneling No -Undermining/Tunneling No -Circular Undermining No -Necrosis Amt Medium (34-66%) -Necrotic Tissue Type Eschar -Temperature (Vivian-wound Skin No Abnormality Appearance) (Pt Warm) -Tenderness on Palpation (Vivian-wound No Skin Appearance) -Ulcer Cleansing Rinsed/ Irrigated with Saline -Foul Odor after Cleansing No -Anesthetic Used 4% Lidocaine Solution [Edema Assessment] -Lower Limb Edema Present NA Musculoskeletal: No Tenderness to Palpation of Joints or Extremities Neurological: Sensory exam intact to light touch and pain Psych/Mental Status: Normal Affect, Appropriate Debridement Note Post-Debridement Measurements/Treatment WC - Nurse 2 - General Ulcer CM Notes Start: 07/14/18 10:51 Freq: Status: Active Protocol: Activity Type Activity Date Activity User E-Sign Co-Sign Detail Recorded Client Recorded Date Recorded By Document 07/14/18 11:08 DV [id number] 07/14/18 11:22 DV 07/14/18 11:08 Wound Center Nurse 2 #1 R Rubin -Time 11:10 -Correct Patient Yes -Correct Side, Site, Position Yes -Correct Procedure Yes -Procedure Performed Yes -Type of Procedure Debridement -Clinical Debridement Subcutaneous -Post Debridement Size (cm) - Length 0.3 -Post Debridement Size (cm) - Width 0.4 -Post Debridement Size (cm) - Depth 0.1 -Total Square Cm 0.12 -Wound/Ulcer Outcome Not Healed -Ulcer Cleansing Rinsed/ Irrigated with Saline -Foul Odor after Cleansing No -Bioengineered Tissue Yes -Type of bioengineered Tissue EPIFIX -Expiration Date 07/05/22 -Product Lot Number [id number] -Percent Used 1 -Saline Lot Number [id number] -Topical Lidocaine (%) 4 -Bleeding Controlled with Pressure -Offloading No -Treatment Response Procedure Tolerated Well Pain Scale: 0-10 Numeric Is Patient Pain Free? Yes No debridement was completed today Assessment/Plan Assessment: Ulcer right anterior lower leg. Pain right lower leg. Edema lower extremity. Other comorbidities Plan: Patient was examined and evaluated again today. At this time, the patient is healed. No debridement performed today. Keeping pressure off of the area of previous ulcer was discussed in order to help the skin continue to strengthen and remodel. I also recommend nutritional supplementation with a high-protein di et. Smoking cessation was discussed again today. The patient was educated on all signs and symptoms of local and systemic infection and she is to go to the emergency room immediately should she notice any of these. All questions were answered to the patient's satisfaction. The patient will follow-up in clinic at this time on an as needed basis, but she is to follow back up in office sooner if needed.
--- OUTSIDE RECORDS SUMMARY | 2018-09-18 01:24 | XMS RPT_ITS ---
:1960 Author Organization OHIP Care Team Providers Name Role Phone Tex Miller Attending Unavailable Tex Miller Referring Unavailable Paul, Tex Primary Care Unavailable Deacon Rodriguez Attending Unavailable Paul, Tex Primary Care Unavailable Deacon Rodriguez Referring Unavailable Deacon Rodriguez Attending Unavailable Deacon Rodriguez Referring Unavailable Paul, Tex Primary Care Unavailable Deacon Rodriguez Attending Unavailable Deacon Rodriguez Referring Unavailable Paul Tex Primary Care Unavailable Deacon Rodriguez Attending Unavailable Deacon Rodriguez Referring Unavailable Paul, Tex Primary Care Unavailable TESSA LINK Attending Unavailable TEX MILLER MD. Primary Care Unavailable EUGENIO RUIZ Attending Unavailable EUGENIO RUIZ Referring Unavailable EUGENIO RUIZ Referring Unavailable TEX MILLER Referring Unavailable EUGENIO RUIZ Referring Unavailable EUGENIO RUIZ Referring Unavailable EUGENIO RUIZ Referring Unavailable TEX MILLER Attending Unavailable TEX MILLER Referring Unavailable TEX MILLER Referring Unavailable KAITLIN CASTAÑEDA (STUART) Attending Unavailable KAITLIN CASTAÑEDA (STUART) Referring Unavailable KAITLIN CASTAÑEDA (STUART) Referring Unavailable PRIYA COLLINS Referring Unavailable PRIYA COLLINS Attending Unavailable TEX MILLER Referring Unavailable PRIYA COLLINS Referring Unavailable BRET CMAPOS () Attending Unavailable EUGENIO RUIZ Referring Unavailable EUGENIO RUIZ Attending Unavailable EUGENIO RUIZ Referring Unavailable EUGENIO RUIZ Referring Unavailable KAITLIN CASTAÑEDA (PA) Referring Unavailable WILLIE ISAACS Attending Unavailable KAITLIN CASTAÑEDA (PA) Referring Unavailable JACOB LANDEROS (PA) Attending Unavailable GEORGE LATHAM Referring Unavailable JACOB LANDEROS (PA) Attending Unavailable JACOB LANDEROS (PA) Referring Unavailable JACOB LANDEROS (PA) Referring Unavailable JACOB LANDEROS (PA) Referring Unavailable EUGENIO RUIZ Referring Unavailable GEORGE LATHAM Referring Unavailable GEORGE LATHAM Referring Unavailable GEORGE LATHAM Attending Unavailable GEORGE LATHAM Referring Unavailable EVETTE SHARPE (PRECINCT I POLICE SERGEANT) Attending Unavailable EVETTE SHARPE (PRECINCT I POLICE SERGEANT) Referring Unavailable MORAN, MAYKEL R Referring Unavailable LEVI PLASCENCIA Attending Unavailable MORAN, MAYKEL R Referring Unavailable LEVI PLASCENCIA Admitting Unavailable LEVI PLASCENCIA Attending Unavailable TEX MILLER Attending Unavailable TEX MILLER Referring Unavailable MORAN, MAYKEL R Referring Unavailable MORAN, MAYKEL R Referring Unavailable MORAN, MAYKEL R Referring Unavailable MORAN, MAYKEL R Attending Unavailable MORAN, MAYKEL R Referring Unavailable MAR PALACIOS (STUART) Attending Unavailable TEX MILLER Referring Unavailable MORAN, MAYKEL R Admitting Unavailable MORAN, MAYKEL R Attending Unavailable MORAN, MAYKEL R Referring Unavailable TEX MILLER Attending Unavailable EUGENIO RUIZ Attending Unavailable EUGENIO RUIZ Referring Unavailable Tex Miller Primary Care Unavailable EUGENIO RUIZ Attending Unavailable EUGENIO RUIZ Referring Unavailable Tex Miller Primary Care Unavailable EUGENIO RUIZ Referring Unavailable Tex Miller Primary Care Unavailable PROBLEMS PROBLEMS DATE TYPE CONDITION / CODE ATTENDING STATUS SOURCE Active Pericardial effusion [place], [place] [address] (noninflammatory) / MAYKEL R Clinic Main I31.3(ICD-10) [place] Repository Active Moderate [place], [facility] 8 protein-calorie MAYKEL R Clinic Main malnutrition / [place] E44.0(ICD-10) Repository Active Other acute MORAN, Active [place] 8 postprocedural pain / MAYKEL R Clinic Main G89.18(ICD-10) [place] Repository Active Encounter for NA Active [place] 8 preprocedural Clinic Main cardiovascular [place] examination / Repository Z01.810(ICD-10) Active Hypertensive emergency NA Active [place] 8 / I16.1(ICD-10) Clinic Main [place] Repository Active Diarrhea, unspecified / NA Active [place] 8 R19.7(ICD-10) Clinic Main [place] Repository Active Disease of pericardium, NA Active [place] 8 unspecified / Clinic Main I31.9(ICD-10) [place] Repository Active Cellulitis, unspecified NA Active [place] 8 / L03.90(ICD-10) Clinic Main [place] Repository Active Abnormal weight loss / NA Active [place] 8 R63.4(ICD-10) Clinic Main [place] Repository Active Chronic obstructive NA Active [place] 6 pulmonary disease, Clinic Main unspecified / [place] J44.9(ICD-10) Repository Active 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 Clinic Main / I30.0(ICD-10) [place] Repository Active Raynaud's syndrome NA Active [place] 8 without gangrene / Clinic Main I73.00(ICD-10) [place] Repository Active Other specified NA Active [place] 8 abnormal immunological Clinic Main findings in serum / [place] R76.8(ICD-10) Repository Unknown Z12.31 - Encounter for Sabina Miller screening mammogram for [facility] malignant neoplasm of [facility] breast / Z12.31(ICD-10) Repository Active Nicotine dependence, PRIYA COLLINS Active [place] 8 unspecified, Clinic Main uncomplicated / [place] F17.200(ICD-10) Repository Active Obesity, unspecified / PRIYA COLLINS Active [place] 7 E66.9(ICD-10) Clinic Main [place] Repository Active Emphysema, unspecified PRIYA COLLINS Active [facility] 6 / J43.9(ICD-10) Clinic Main [place] Repository Active Secondary polycythemia PRIYA COLLINS [place] 8 / D75.1(ICD-10) Clinic Main [place] Repository Active Pulmonary hypertension PRIYA COLLINS Active [place] 8 due to lung diseases Clinic Main and hypoxia / [place] I27.23(ICD-10) Repository Active Other NA Active [place] 8 hemoglobinopathies / Clinic Main D58.2(ICD-10) [place] Repository Active Encounter for screening [facility] 8 for malignant neoplasm Clinic Main of colon / [place] Z12.11(ICD-10) Repository Active Other injury of NA Active [place] 8 unspecified body Clinic Main region, initial [place] encounter / Repository T14.8XXA(ICD-10) Active Unknown / UNK(Unknown) PAUL Active [place] 8 TEX A Clinic Main [place] Repository Active 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89(ICD-10) [place] Repository Admitting Unknown / UNK(Unknown) SARA Active [facility] 8 diagnosis [facility] Repository PROCEDURES PROCEDURES No Procedure Records FoundRESULTS RESULTS PROGRESS Observed: 07/08/2018 Status: COMPLETED Source: [place] 1:07 PM [facility] REPOSITORY HNO ID: [id number] Author: Juan (Health Relish Blender) Greg Service: (none) Author Type: Health Educator Type: Progress Notes Filed: 07/08/2018 1:09 PM Note Text: [facility] WELLNESS ECOACHING PATIENT NAME: Cruz Jacobo AGE: [age] year old SEX: female Coaching Status: Inactive--Patient responded to intial Welcome email, but has opted out of coaching and not focusing on quitting smoking.. Please reorder if patient interested in resuming program. Email Engagement from Patient: Occasional, was able to cut back but unable to quit. Juan Garza, Health Relish Blender July 08, 2018 1:07 PM PROGRESS Observed: 07/06/2018 Status: COMPLETED Source: [place] 2:26 PM [facility] REPOSITORY HNO ID: [id number] Author: Tex Miller Service: (none) Author Type: Physician Type: Progress Notes Filed: 07/06/2018 11:28 PM Note Text: Chief Complaint Patient presents with: Hospital F/U: surgery pericardial effusion HPI Cruz Jacobo is a 57 year old female who presents here today for Above Complaints.. Patient had a shavon cardio window placed 06/22/2018 at [facility] and released 06/27/2019. Patient was nauseated the next day but none since. Had her amilodipine/benazepril stopped and started on metoprolol. Since being home has some pain in area of surgery. Occasional slight shortness of breath at times like she would usually get but less frequent. No fevers or chills. No known drainage from surgical sight. No leg edema. Today after shower noted slight swelling under her chin on the right with slight tenderness. Has been having nasal drainage since D/C clear in color. No sore throat. Past medical history, appointments, medications, allergies reviewed. 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 Ruiz, on colchicine - Routine gynecological examination Dr. Arreola - Seasonal allergies - Smoker 01/25/2014 - Substance abuse (HCC) - Urge incontinence 06/22/2013 - Vitamin D deficiency 01/25/2014 - Wound infection, posttraumatic 03/2018 hit right jurado on car door Previous Surgical History PAST SURGICAL HISTORY Procedure Laterality Date - FECAL OCCULT BLOOD TEST 12/09/2017 negative - STRESS TEST 08/28/2014 NL - HERLINDA W/WO REMOVAL TUBE OVARY HERLINDA-BSO - TONSILLECTOMY HX - [facility] DELIVERY SCHEDULING ORDER 2002 Family History FAMILY HISTORY Problem Relation Age of Onset - Coronary Artery Disease Mother - Diabetes Mother - Headache Mother - Hypertension Mother - COPD Mother Multiple mebers of maternal family. - Diabetes Brother - Stroke Father - Breast Cancer Sister - Cancer Sister Lung. Uncle. Patient Allergies ALLERGIES Allergen Reactions - Bee Sting Swelling, Shortness of Breath - Aleve [Naproxen] Hives Current Medications Current Outpatient Prescriptions on File Prior to Visit: ibuprofen (MOTRIN) 800 mg tablet take 1 tablet by mouth every 8 hours with food if needed for pain albuterol HFA (PROAIR HFA) 90 mcg/actuation inhaler Inhale 2 Puffs as instructed every 4 hours as needed for Wheezing/Shortness of Breath. metoprolol tartrate, short acting, (LOPRESSOR) 25 mg tablet Take 0.5 tablets by mouth every 12 hours. simethicone, chewable (MYLICON) 80 mg chewable tablet Take 1 tablet by mouth four times daily as needed (gas). atorvastatin (LIPITOR) 10 mg tablet Take 1 tablet by mouth daily at bedtime. gabapentin (NEURONTIN) 400 mg capsule Take 3 capsules by mouth daily at bedtime for 180 days. Cholecalciferol, Vitamin D3, 2,000 unit cap Take 1 capsule by mouth twice daily. oxybutynin ER (DITROPAN XL) 10 mg 24 hr tablet take 1 tablet by mouth once daily - TO REPLACE DETROL SPIRIVA WITH HANDIHALER 18 mcg inhalation capsule inhale contents of 1 capsule as directed once daily buPROPion HCl, smoking deter, 150 mg Tb12 take 1 tablet by mouth once daily for 2 weeks then take 1 tablet twice a day omeprazole (PRILOSEC) 20 mg capsule take 1 tablet by mouth daily 1/2 HOUR BEFORE BREAKFAST rOPINIRole (REQUIP) 0.5 mg tablet take 2 tablets by mouth at bedtime baclofen (LIORESAL) 20 mg tablet take 1 tablet by mouth 2 to three times a day for muscle spasm SYMBICORT 160-4.5 mcg/actuation inhaler Inhale 2 Puffs as instructed twice daily. EPINEPHrine (EPIPEN) 0.3 mg/0.3 mL auto-injector Inject 0.3 mL intramuscularly as needed. aspirin, enteric coated (ADULT LOW DOSE ASPIRIN) 81 mg EC tablet Take 1 tablet by mouth once daily. polyethylene glycol 3350 (MIRALAX, GLYCOLAX) 17 gram packet Take 1 Packet by mouth once daily. No current facility-administered medications on file prior to visit. Social History Social History Marital status: Spouse name: Years of education: Number of children: Occupational History Occupation Employer Comment [employer], last done 2011 Social History Main Topics Smoking status: Current Every Day Smoker Packs/day: 2.00 Years: 37.00 Start date: 1976 Smokeless tobacco: Never Used Alcohol use: No Comment: None since 2011, TO 02/2016. Drug use: No Social History Narrative Tried Chantix and Nicotine patch. First morning cigarette right after going to the bathroom. Hardest cigarette to give up- morning cigarette. Once get coffee in the morning, it is one after another. Quit during hospitalization with delivery of baby for 1 week. Smoked during . Review of Symptoms REVIEW OF SYSTEMS See HPI EXAM: BP 104/70 Pulse 80 Resp 14 Wt 70.8 kg (156 lb) BMI 26.78 kg/m? General Appearance: Well appearing, alert, in no acute distress, well-hydrated, well nourished.. Neck: Supple,thyroid symmetric, normal size, no bruits. Has a slightly enlarged gland on the right, under her chin. Slightly tender. Lungs: lungs clear to auscultation. No wheezing, rhonchi, rales. Heart: RRR without murmur, gallop, or rubs. No ectopy. Abdomen: Normal abdominal exam, Abdomen soft, non-tender. Bowel sounds normal. No masses, organomegaly. Extremities: No deformities, edema, skin discoloration Peripheral Pulses: Normal. Skin: Area where chest tube was is healing with no signes of infection and incision for shavon-cardio window has healed well with no signs of infection. Health Maintenance List EDWARD/ARB MED PRESCRIBED due on 07/29/2018 MAMMOGRAM due on 12/30/2018 LUNG CANCER SCREENING due on 04/06/2019 FECAL OCCULT BLOOD due on 05/29/2019 ANNUAL PCP TEAM CHRONIC DISEASE VISIT due on 06/07/2019 BP CONTROLLED (<130/80) due on 07/06/2019 PAP EVERY 5 YEARS due on 09/24/2020 HPV EVERY 5 YEARS due on 09/24/2020 DIABETES SCREEN due on 06/27/2021 LIPID SCREEN due on 04/27/2023 DTAP,TDAP,TD(2 - Td) due on 06/04/2026 ONE PNEUMOVAX PRIOR TO AGE 65 Completed INFLUENZA Completed HEPATITIS C SCREENING Completed Data reviewed A/P ASSESSMENT/PLAN: 1. Pericardial effusion - ICD9: 423.9, ICD10: I31.3 (primary diagnosis) - Post surgical sites look good and no concerns. 2. Essential hypertension - ICD9: 401.9, ICD10: I10 - good control - Continue current medication(s) - Recommended regular aerobic exercise. - Recommend home blood pressure monitoring, to bring results in on next visit - Goal of BP <130/80 3. Submandibular gland swelling - ICD9: 782.3, ICD10: R60.9 - Suspect related to a viral event will monitor for now. Patient to return if worsens. Tex Miller MD CNOV Observed: 07/06/2018 Status: COMPLETED Source: [place] 1:40 PM [facility] REPOSITORY Office Visit (FAMPWS) CRUZ JACOBO ([id number]) 1960 F Date Time Provider Department 07/06/18 1:40 PM TEX MILLER FAMPWS During your visit today, we recorded the following information about you: Pulse Respiration Blood pressure Weight 80/minute 14/minute 104/70 70.8 kg Tex Miller MD 07/06/2018 11:28 PM Signed Chief Complaint Patient presents with: Hospital F/U: surgery pericardial effusion HPI Cruz Hilton Donnell is a 57 year old female who presents here today for Above Complaints.. Patient had a shavon cardio window placed 06/22/2018 at [facility] and released 06/27/2019. Patient was nauseated the next day but none since. Had her amilodipine/benazepril stopped and started on metoprolol. Since being home has some pain in area of surgery. Occasional slight shortness of breath at times like she would usually get but less frequent. No fevers or chills. No known drainage from surgical sight. No leg edema. Today after shower noted slight swelling under her chin on the right with slight tenderness. Has been having nasal drainage since D/C clear in color. No sore throat. Past medical history, appointments, medications, allergies reviewed. Previous Medical History PAST MEDICAL HISTORY Diagnosis Date - YEN positive 12/06/2017 Seeing Rheum - Cancer ([facility]) - CHF (congestive heart failure) ([facility]) 12/06/2017 - COPD (chronic obstructive pulmonary disease) ([facility]) - Fibromyalgia 03/09/2014 - Heme positive stool 05/29/2018 - HTN (hypertension) - Hyperlipidemia 01/30/2014 - Insomnia 09/20/2013 - Lipoma of buttock 01/25/2014 Left glut - Low back pain 05/09/2013 - Lumbar canal stenosis 12/06/2017 Moderate at L2-L3 - Lumbar facet arthropathy 12/06/2017 - Lumbar foraminal stenosis 12/06/2017 - 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 Ruiz, on colchicine - Routine gynecological examination Dr. Arreola - Seasonal allergies - Smoker 01/25/2014 - Substance abuse ([facility]) - Urge incontinence 06/22/2013 - Vitamin D deficiency 01/25/2014 - Wound infection, posttraumatic 03/2018 hit right [place] on car door Previous Surgical History PAST SURGICAL HISTORY Procedure Laterality Date - FECAL OCCULT BLOOD TEST 12/09/2017 negative - STRESS TEST 08/28/2014 NL - HERLINDA W/WO REMOVAL TUBE OVARY HERLINDA-BSO - TONSILLECTOMY HX - [facility] DELIVERY SCHEDULING ORDER 2002 Family History FAMILY HISTORY Problem Relation Age of Onset - Coronary Artery Disease Mother - Diabetes Mother - Headache Mother - Hypertension Mother - COPD Mother Multiple mebers of maternal family. - Diabetes Brother - Stroke Father - Breast Cancer Sister - Cancer Sister Lung. Uncle. Patient Allergies ALLERGIES Allergen Reactions - Bee Sting Swelling, Shortness of Breath - Aleve [Naproxen] Hives Current Medications Current Outpatient Prescriptions on File Prior to Visit: ibuprofen (MOTRIN) 800 mg tablet take 1 tablet by mouth every 8 hours with food if needed for pain albuterol HFA (PROAIR HFA) 90 mcg/actuation inhaler Inhale 2 Puffs as instructed every 4 hours as needed for Wheezing/Shortness of Breath. metoprolol tartrate, short acting, (LOPRESSOR) 25 mg tablet Take 0.5 tablets by mouth every 12 hours. simethicone, chewable (MYLICON) 80 mg chewable tablet Take 1 tablet by mouth four times daily as needed (gas). atorvastatin (LIPITOR) 10 mg tablet Take 1 tablet by mouth daily at bedtime. gabapentin (NEURONTIN) 400 mg capsule Take 3 capsules by mouth daily at bedtime for 180 days. Cholecalciferol, Vitamin D3, 2,000 unit cap Take 1 capsule by mouth twice daily. oxybutynin ER (DITROPAN XL) 10 mg 24 hr tablet take 1 tablet by mouth once daily - TO REPLACE DETROL SPIRIVA WITH HANDIHALER 18 mcg inhalation capsule inhale contents of 1 capsule as directed once daily buPROPion HCl, smoking deter, 150 mg Tb12 take 1 tablet by mouth once daily for 2 weeks then take 1 tablet twice a day omeprazole (PRILOSEC) 20 mg capsule take 1 tablet by mouth daily 1/2 HOUR BEFORE BREAKFAST rOPINIRole (REQUIP) 0.5 mg tablet take 2 tablets by mouth at bedtime baclofen (LIORESAL) 20 mg tablet take 1 tablet by mouth 2 to three times a day for muscle spasm SYMBICORT 160-4.5 mcg/actuation inhaler Inhale 2 Puffs as instructed twice daily. EPINEPHrine (EPIPEN) 0.3 mg/0.3 mL auto-injector Inject 0.3 mL intramuscularly as needed. aspirin, enteric coated (ADULT LOW DOSE ASPIRIN) 81 mg EC tablet Take 1 tablet by mouth once daily. polyethylene glycol 3350 (MIRALAX, GLYCOLAX) 17 gram packet Take 1 Packet by mouth once daily. No current facility-administered medications on file prior to visit. 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 Drug use: No Social History Narrative Tried Chantix and Nicotine patch. First morning cigarette right after going to the bathroom. Hardest cigarette to give up- morning cigarette. Once get coffee in the morning, it is one after another. Quit during hospitalization with delivery of baby for 1 week. Smoked during . Review of Symptoms REVIEW OF SYSTEMS See HPI EXAM: BP 104/70 Pulse 80 Resp 14 Wt 70.8 kg (156 lb) BMI 26.78 kg/m? General Appearance: Well appearing, alert, in no acute distress, well-hydrated, well nourished.. Neck: Supple,thyroid symmetric, normal size, no bruits. Has a slightly enlarged gland on the right, under her chin. Slightly tender. Lungs: lungs clear to auscultation. No wheezing, rhonchi, rales. Heart: RRR without murmur, gallop, or rubs. No ectopy. Abdomen: Normal abdominal exam, Abdomen soft, non-tender. Bowel sounds normal. No masses, organomegaly. Extremities: No deformities, edema, skin discoloration Peripheral Pulses: Normal. Skin: Area where chest tube was is healing with no signes of infection and incision for shavon-cardio window has healed well with no signs of infection. Health Maintenance List EDWARD/ARB MED PRESCRIBED due on 07/29/2018 MAMMOGRAM due on 12/30/2018 LUNG CANCER SCREENING due on 04/06/2019 FECAL OCCULT BLOOD due on 05/29/2019 ANNUAL PCP TEAM CHRONIC DISEASE VISIT due on 06/07/2019 BP CONTROLLED (<130/80) due on 07/06/2019 PAP EVERY 5 YEARS due on 09/24/2020 HPV EVERY 5 YEARS due on 09/24/2020 DIABETES SCREEN due on 06/27/2021 LIPID SCREEN due on 04/27/2023 DTAP,TDAP,TD(2 - Td) due on 06/04/2026 ONE PNEUMOVAX PRIOR TO AGE 65 Completed INFLUENZA Completed HEPATITIS C SCREENING Completed Data reviewed A/P ASSESSMENT/PLAN: 1. Pericardial effusion - ICD9: 423.9, ICD10: I31.3 (primary diagnosis) - Post surgical sites look good and no concerns. 2. Essential hypertension - ICD9: 401.9, ICD10: I10 - good control - Continue current medication(s) - Recommended regular aerobic exercise. - Recommend home blood pressure monitoring, to bring results in on next visit - Goal of BP <130/80 3. Submandibular gland swelling - ICD9: 782.3, ICD10: R60.9 - Suspect related to a viral event will monitor for now. Patient to return if worsens. Tex Miller MD Referring Provider: SELF [[id number]] Allergies As of Date: 07/06/2018 Noted Allergy Reaction BEE STING 05/09/2013 7 - Swelling 12 - Shortness of Breath ALEVE (NAPROXEN) 05/09/2013 4 - Hives Date Reviewed: 07/06/2018 Reviewed by: Tex Miller - Fully Assessed Reason for Visit: Hospital F/U [57] Cmt: surgery pericardial effusion Reason For Visit History Recorded Primary Visit Diagnosis:Pericardial effusion [I31.3] Other Visit Diagnoses:Essential hypertension [I10] Submandibular gland swelling [R60.9] Order(s):metoprolol tartrate, short acting, (LOPRESSOR) 25 mg tabletTake 0.5 tablets by mouth every 12 hours.Disp: 90 tabletRfl: 1 Prescriptions as of 07/06/2018 Sig: METOPROLOL TARTRATE 25 MG TAB* Take 0.5 tablets by mouth gil* IBUPROFEN 800 MG TABLET take 1 tablet by mouth every * ALBUTEROL SULFATE HFA 90 MCG/* Inhale 2 Puffs as instructed * SIMETHICONE 80 MG CHEWABLE TA* Take 1 tablet by mouth four t* ATORVASTATIN 10 MG TABLET Take 1 tablet by mouth daily * GABAPENTIN 400 MG CAPSULE Take 3 capsules by mouth zahra* CHOLECALCIFEROL (VITAMIN D3) * Take 1 capsule by mouth twice* OXYBUTYNIN CHLORIDE ER 10 MG * take 1 tablet by mouth once d* SPIRIVA WITH HANDIHALER 18 MC* inhale contents of 1 capsule * BUPROPION HCL 150 MG TABLET,1* take 1 tablet by mouth once d* OMEPRAZOLE 20 MG CAPSULE,DIONE* take 1 tablet by mouth daily * ROPINIROLE 0.5 MG TABLET take 2 tablets by mouth at be* BACLOFEN 20 MG TABLET take 1 tablet by mouth 2 to t* SYMBICORT 160 MCG-4.5 MCG/ACT* Inhale 2 Puffs as instructed * EPINEPHRINE 0.3 MG/0.3 ML INJ* Inject 0.3 mL intramuscularly* ASPIRIN 81 MG TABLET,DELAYED * Take 1 tablet by mouth once d* POLYETHYLENE GLYCOL 3350 17 G* Take 1 Packet by mouth once d* Problem List As Of Date 07/06/2018 Noted Resolved Seasonal allergies [J30.2] Routine gynecological examination [Z01.419] More... Urge incontinence [N39.41] INVALID FOR* Insomnia [G47.00] INVALID FOR* Vitamin D deficiency [E55.9] INVALID FOR* Smoking [F17.200] INVALID FOR* More... Lipoma of buttock [D17.1] INVALID FOR* More... More... Fibromyalgia [M79.7] INVALID FOR* HTN (hypertension) [I10] INVALID FOR* More... Chronic obstructive pulmonary disease (HCC) [J4*INVALID FOR* More... Mixed hyperlipidemia [E78.2] INVALID FOR* More... Gastroesophageal reflux disease without esophag*INVALID FOR* More... Low back pain [M54.5] INVALID FOR* More... Arthritis of both knees [M17.0] INVALID FOR* More... Pericardial effusion [I31.3] INVALID FOR* More... Carpal tunnel syndrome of left wrist [G56.02] INVALID FOR* More... Obesity (BMI 35.0-39.9 without comorbidity) [E6*INVALID FOR*01/12/2017 Obesity (BMI 30.0-34.9) [E66.9] INVALID FOR* More... Current use of proton pump inhibitor [Z79.899] INVALID FOR* More... Lumbar canal stenosis [M48.061] INVALID FOR* More... Lumbar foraminal stenosis [M99.83] INVALID FOR* Lumbar facet arthropathy (HCC) [M47.816] INVALID FOR* CHF (congestive heart failure) (HCC) [I50.9] INVALID FOR* More... YEN positive [R76.8] INVALID FOR* More... Medicare annual wellness visit, subsequent [Z00*INVALID FOR* More... Well adult exam [Z00.00] INVALID FOR* More... Screening for colon cancer [Z12.11] INVALID FOR* Encounter for screening mammogram for breast ca*INVALID FOR* Elevated hemoglobin (HCC) [D58.2] INVALID FOR* Secondary polycythemia [D75.1] INVALID FOR* More... Wound infection, posttraumatic [T14.8XXA, L08.9]INVALID FOR* More... Heme positive stool [R19.5] INVALID FOR* More... Discharge planning issues [Z02.9] INVALID FOR* More... Malnutrition of moderate degree (HCC) [E44.0] INVALID FOR* Transition of care performed with sharing of cl*INVALID FOR* More... Pleural effusion [J90] INVALID FOR* More... Constipation [K59.00] INVALID FOR* More... Prescriptions ordered this encounter Disp Refills Start End METOPROLOL TARTRATE 25 MG TABLET 90 t* 1 07/06/2018 Route: ORAL Sig: Take 0.5 tablets by mouth every 12 hours. Medications Discontinued During This Encounter metoprolol tartrate, short acting, (* 30 t* 0 06/27/2018 07/06/2018 Route: ORAL Sig: Take 0.5 tablets by mouth every 12 hours. Disc: Reason for discontinue is not on file. Encounter Status:Closed by TEX MILLER on 07/06/18 CNCO Observed: 06/29/2018 Status: COMPLETED Source: [place] 12:00 AM [facility] REPOSITORY Letter Text June 29, 2018 Cruz Jacobo [address] [facility] [address] Dear Ms. Jacobo, The nurses and staff of J6-3 nursing unit at [facility] hope this letter finds you feeling well and progressing in your recovery. It was an honor for us to provide your nursing care. We know that placing our Patients First and maintaining a culture of continuous improvement, each and every day, are essential to the success of our organization. We want to hear from you. If you have any comments, questions or concerns about your hospital stay, please feel free to contact me, Payton Summers RN at [phone] or e-mail . Additionally, you will receive a survey in the mail asking you to rate the care you received while in the hospital. Please take the time to complete and send back the survey. I personally review all the results and would appreciate your feedback. Please consider completing this survey for each individual visit. Thank you in advance for your participation and thank you for choosing the [facility] for your healthcare needs. Sincerely, Payton Summers, RN Nurse Purchasing Agent J6-3 Cardiovascular Surgery Step-down Unit NURSING PROG Observed: 06/27/2018 Status: COMPLETED Source: [place] 2:02 PM [facility] REPOSITORY HNO ID: [id number] Author: Rosemarie SchofieldRn) ARIA Harp Service: (none) Author Type: Registered Nurse Type: Nursing Progress Note Filed: 06/27/2018 2:04 PM Note Text: Admission/Transfer Note PATIENT NAME: Cruz Jacobo Patient transferred to home via wheelchair in stable condition. Actions taken: Patient belongings with patient. This note was completed by: ROSEMARIE HARP RN PLAN OF CARE Observed: 06/27/2018 Status: COMPLETED Source: [place] 1:57 PM [facility] REPOSITORY HNO ID: [id number] Author: Nicole Alvarez (Aerospace Project Manager) Service: (none) Author Type: (none) Type: Plan of Care Filed: 06/27/2018 1:58 PM Note Text: PHARMACY BEDSIDE DELIVERY SERVICE Patient Name: Cruz Jacobo The marked outpatient medications were Filled at: [facility] and delivered to the patient's bedside to patient Medication List START taking these medications metoprolol tartrate (short acting) 25 mg tablet Commonly known as: LOPRESSOR Take 0.5 tablets by mouth every 12 hours. delivered polyethylene glycol 3350 17 gram packet Commonly known as: MIRALAX, GLYCOLAX Take 1 Packet by mouth once daily. Start taking on: 06/28/2018 delivered simethicone, chewable 80 mg chewable tablet Commonly known as: MYLICON Take 1 tablet by mouth four times daily as needed (gas). delivered traMADol 50 mg tablet Commonly known as: ULTRAM Take 1 tablet by mouth every 6 hours as needed for Pain for up to 7 days. delivered CONTINUE taking these medications aspirin, enteric coated 81 mg EC tablet Commonly known as: ADULT LOW DOSE ASPIRIN Take 1 tablet by mouth once daily. atorvastatin 10 mg tablet Commonly known as: LIPITOR Take 1 tablet by mouth daily at bedtime. baclofen 20 mg tablet Commonly known as: LIORESAL take 1 tablet by mouth 2 to three times a day for muscle spasm buPROPion HCl (smoking deter) 150 mg Tb12 take 1 tablet by mouth once daily for 2 weeks then take 1 tablet twice a day Cholecalciferol (Vitamin D3) 2,000 unit Cap Take 1 capsule by mouth twice daily. EPINEPHrine 0.3 mg/0.3 mL auto-injector Commonly known as: EPIPEN Inject 0.3 mL intramuscularly as needed. gabapentin 400 mg capsule Commonly known as: NEURONTIN Take 3 capsules by mouth daily at bedtime for 180 days. ibuprofen 800 mg tablet Commonly known as: MOTRIN take 1 tablet by mouth every 8 hours with food if needed for pain omeprazole 20 mg capsule Commonly known as: PriLOSEC take 1 tablet by mouth daily 1/2 HOUR BEFORE BREAKFAST oxybutynin ER 10 mg 24 hr tablet Commonly known as: DITROPAN XL take 1 tablet by mouth once daily - TO REPLACE DETROL PROAIR HFA 90 mcg/actuation inhaler Generic drug: albuterol HFA inhale 2 puffs by mouth four times a day rOPINIRole 0.5 mg tablet Commonly known as: REQUIP take 2 tablets by mouth at bedtime SPIRIVA WITH HANDIHALER 18 mcg inhalation capsule Generic drug: tiotropium inhale contents of 1 capsule as directed once daily SYMBICORT 160-4.5 mcg/actuation inhaler Generic drug: budesonide-formoterol You might also be taking other medications not listed above. If you have questions about any of your other medications, talk to the person who prescribed them or your Primary Care Provider. STOP taking these medications amLODIPine 5 mg tablet Commonly known as: NORVASC benazepril 20 mg tablet Commonly known as: LOTENSIN mupirocin 2 % ointment Commonly known as: BACTROBAN Nicole Alvarez (Project [employer]) PAGER: June 27, 2018 1:58 PM PLAN OF CARE Observed: 06/27/2018 Status: COMPLETED Source: [place] 11:20 AM [facility] REPOSITORY O ID: [id number] Author: Nicole Alvarez ([employer]) Service: (none) Author Type: (none) Type: Plan of Care Filed: 06/27/2018 11:20 AM Note Text: Pharmacy Discharge Medication Service: This patient has elected to receive their discharge prescriptions through the [facility] Bedside Prescription Delivery program. The prescriptions are currently being processed. A follow-up note will be entered once the prescriptions have been filled and delivered to the patient. Please contact me with any questions or updates to the patient's discharge medications. Nicole Alvarze ([employer]) DCT Contact Info: PLAN OF CARE Observed: 06/27/2018 Status: COMPLETED Source: [place] 11:19 AM [facility] REPOSITORY HNO ID: [id number] Author: Nicole Alvarez ([employer]) Service: (none) Author Type: (none) Type: Plan of Care Filed: 06/27/2018 11:20 AM Note Text: BRAKE SPECIALIST BEDSIDE DELIVERY SURVEY 1. Patient to use [facility] Bedside Delivery - YES 2. If fax, patient would like us to fax prescriptions to Pharmacy of choice a. Pharmacy: b. Location: c. Phone: 3. Insurance card on file - YES 4. Credit card for payment - YES NURSING PROG Observed: 06/27/2018 Status: COMPLETED Source: [place] 8:28 AM [facility] REPOSITORY HNO ID: [id number] Author: Rosemarie Rosa) ARIA Harp Service: (none) Author Type: Registered Nurse Type: Nursing Progress Note Filed: 06/27/2018 8:29 AM Note Text: Nursing Progress Note Patient Name: Cruz Jacobo Patient Location: [place] [address]/J6-3-19 Patient refusing any more IV attempts at this time. Will continue to ask. This note was completed by: ROSEMARIE HARP RN POTASSIUM Collected: 06/27/2018 Status: F Source: [place] 7:54 AM [facility] REPOSITORY TYPE CODE TESTS RESULT OUT OF REFERENCE UNITS RANGE LAB K 3.7-5.1 mmol/L Potassium 3.9 Performed By: #### K1 #### [facility] [address] [place], [place] [address] XR CHEST 1V FRONTAL Observed: 06/27/2018 Status: F Source: [facility] 5:31 AM [facility] REPOSITORY * * *Final Report* * * DATE OF EXAM: Jun 27 2018 5:31AM KAR[facility] [id number] - XR CHEST 1V FRONTAL PORT / PROCEDURE REASON: Pleural effusion * * * * Physician Interpretation * * * * EXAMINATION: CHEST RADIOGRAPH (PORTABLE SINGLE VIEW AP) Exam Date/Time: 06/27/2018 5:31 AM Clinical History: Pleural effusion, MQ: [id number] Comparison: 06/24/2018 RESULT: See impression. IMPRESSION: Lines, tubes, and devices: A presumed pericardial drain remains in place. Lungs and pleura: Lungs remain hyperinflated. Near complete resolution of previously identified small right pleural effusion and adjacent atelectasis. Interval improvement without resolution of previously identified small left pleural effusion and adjacent atelectasis. There is no overt pulmonary edema. No large pneumothorax is identified. Cardiomediastinal silhouette: Stable cardiomediastinal silhouette. Other: . Tobacco Stemmer: BIRGIT Transcribe Date/Time: Jun 27 2018 9:31A Dictated by : CYNTHIA CONNER MD This examination was interpreted and the report reviewed and electronically signed by: CYNTHIA CONNER MD on Jun 27 2018 9:31AM EST [id number] CBC Collected: 06/27/2018 Status: F Source: [place] 12:13 AM [facility] REPOSITORY TYPE CODE TESTS RESULT OUT OF REFERENCE UNITS RANGE LAB WBC 3.70-11.00 k/uL WBC 6.74 LAB RBC 3.90-5.20 m/uL RBC High 5.42 LAB HGB 11.5-15.5 g/dL High Hemoglobin 17.2 LAB HCT 36.0-46.0 % High Hematocrit 51.7 LAB MCV 80.0-100.0 fL MCV 95.4 LAB MCH 26.0-34.0 pG MCH 31.7 LAB MCHC 30.5-36.0 g/dL MCHC 33.3 LAB RDWCV 11.5-15.0 % RDW-CV 13.5 LAB PLTCT 150-400 k/uL Platelet Count 162 LAB MPV 9.0-12.7 fL MPV 11.7 LAB ABSNUC <0.01 k/uL Absolute nRBC <0.01 Performed By: #### CBC, CMP #### [facility] [address] [place], [place] [address] COMP METABOLIC PANEL Collected: 06/27/2018 Status: F Source: [place] 12:13 AM [facility] REPOSITORY TYPE CODE TESTS RESULT OUT OF REFERENCE UNITS RANGE LAB TP 6.3-8.0 g/dL Low Protein, Total 6.2 LAB ALB 3.9-4.9 g/dL Low Albumin 3.1 LAB CA 8.5-10.2 mg/dL Calcium, Total 8.9 LAB TBIL 0.2-1.3 mg/dL Bilirubin, Total 0.5 LAB ALKP 34-123 U/L Alkaline Phosphatase 64 LAB AST 13-35 U/L AST 18 LAB GLU 74-99 mg/dL Glucose 89 Result Comment: The [place] Diabetes Association (ADA) provides guidance for cutoff values for fasting glucose and random glucose. The ADA defines fasting as no caloric intake for at least 8 hours. Fas ting plasma glucose results between 100 to 125 mg/dL indicate increased risk for diabetes (prediabetes). Fasting plasma glucose results greater than or equal to 126 mg/dL meet the criteria for diagnosis of diabetes. In the absence of unequivocal hyperglycemia, results should be confirmed by repeat testing. In a patient with classic symptoms of hyperglycemia or hyperglycemic crisis, random plasma glucose results greater than or equal to 200 mg/dL meet the criteria for diagnosis of diabetes. Reference: Standards of Medical Care in Diabetes 2016, [place] [employer] Association. Diabetes Care. 2016.39(Suppl 1). LAB BUN 7-21 mg/dL BUN High 22 LAB CRET 0.58-0.96 mg/dL Creatinine 0.87 LAB NA 136-144 mmol/L Sodium 142 LAB K 3.7-5.1 mmol/L Low Potassium 3.6 LAB CL 97-105 mmol/L Chloride 100 LAB CO2 22-30 mmol/L CO2 27 LAB AGAP 9-18 mmol/L Anion Gap 15 LAB ALT 7-38 U/L ALT 14 LAB GFRAA eGFR- Amer. >60 LAB GFRNAA . eGFR-All Other Races >60 Result Comment: eGFR (Estimated GFR) Units of measure: mL/min/1.73 meters squared eGFR is derived from the reexpressed MDRD Study equation using the following parameters: serum creatinine, age, gender and race. The creatinine assay has been calibrated to be traceable to IDMS. An eGFR <60 mL/min/1.73m2 for >3 months is consistent with chronic kidney disease. Refer to KDOQI guidelines for clinical interpretation. In patients with unstable renal function, e.g. those with acute kidney injury, the eGFR may not accurately reflect actual GFR. Performed By: #### CBC, CMP #### [facility] [address] [place], [place] [address] POTASSIUM Collected: 06/27/2018 Status: F Source: [place] 12:13 AM [facility] REPOSITORY TYPE CODE TESTS RESULT OUT OF REFERENCE UNITS RANGE LAB K 3.7-5.1 mmol/L Low Potassium 3.5 Performed By: #### K1 #### [facility] [address] [place], [place] [address] NURSING PROG Observed: 06/26/2018 Status: COMPLETED Source: [place] 7:57 PM [facility] REPOSITORY HNO ID: [id number] Author: Dimple Rosa) ARIA Belcher Service: Nursing Author Type: Registered Nurse Type: Nursing Progress Note Filed: 06/26/2018 7:58 PM Note Text: Nursing Progress Note Patient Name: Cruz Jacobo [address] Patient refusing any more attempts at IV access at this time. [facility] oncAvelino brower, made aware @ [id number]. This note was completed by: Dimple Belcher RN PROGRESS Observed: 06/26/2018 Status: COMPLETED Source: [place] 2:32 PM [facility] REPOSITORY HNO ID: [id number] Author: Elida Cervantes (Fel) Service: Cardiac Surgery Author Type: Fellow Type: Progress Notes Filed: 06/26/2018 2:37 PM Note Text: [facility] POSTOP PROGRESS NOTE Day of Surgery:06/22/2018 S/P SURGERY: Pericardial Window Subxiphoid. Doing well, VSS, 100s/min sinus, 92%on 2 lts Neuro: NAD, AANDO X3. Follows commands and answers questions appropriately CV: S1S2, RRR, no murmur Resp: Diminished with expiratory wheezes, even and unlabored on 4-6L NC oxygen Abd: soft, non-tender +BS, +BM Ext: No LE edema Wounds: Clean, dry and intact Chest tubes: MS pericardial víctor 120cc/24hrs PMW: No CT-150mls CXR B/L mild Pl Eff, Rt Basal congestion/atelectasis LABS In process Plan: Keep CT till Wednesday. Don't joaquin a high O2 saturation in view of the severe COPD, D/C when back to O2 requirements like home --By Wednesday Elida Cervantes [id number] CBC Collected: 06/26/2018 Status: F Source: [place] 6:08 AM [facility] REPOSITORY TYPE CODE TESTS RESULT OUT OF REFERENCE UNITS RANGE LAB WBC 3.70-11.00 k/uL WBC 5.93 LAB RBC 3.90-5.20 m/uL RBC High 6.16 LAB HGB 11.5-15.5 g/dL High Hemoglobin 19.5 LAB HCT 36.0-46.0 % High Hematocrit 58.5 LAB MCV 80.0-100.0 fL MCV 95.0 LAB MCH 26.0-34.0 pG MCH 31.7 LAB MCHC 30.5-36.0 g/dL MCHC 33.3 LAB RDWCV 11.5-15.0 % RDW-CV 13.9 LAB PLTCT 150-400 k/uL Platelet Count 155 LAB MPV 9.0-12.7 fL MPV 11.6 LAB ABSNUC <0.01 k/uL Absolute nRBC <0.01 Performed By: #### CBC, CMP #### [facility] [address] [place], [place] [address] COMP METABOLIC PANEL Collected: 06/26/2018 Status: F Source: [place] 6:08 AM [facility] REPOSITORY TYPE CODE TESTS RESULT OUT OF REFERENCE UNITS RANGE LAB TP 6.3-8.0 g/dL Protein, Total 7.0 LAB ALB 3.9-4.9 g/dL Low Albumin 3.4 LAB CA 8.5-10.2 mg/dL Calcium, Total 9.4 LAB TBIL 0.2-1.3 mg/dL Bilirubin, Total 0.6 LAB ALKP 34-123 U/L Alkaline Phosphatase 76 LAB AST 13-35 U/L AST 23 LAB GLU 74-99 mg/dL Glucose 83 Result Comment: The [place] Diabetes Association (ADA) provides guidance for cutoff values for fasting glucose and random glucose. The ADA defines fasting as no caloric intake for at least 8 hours. Fas ting plasma glucose results between 100 to 125 mg/dL indicate increased risk for diabetes (prediabetes). Fasting plasma glucose results greater than or equal to 126 mg/dL meet the criteria for diagnosis of diabetes. In the absence of unequivocal hyperglycemia, results should be confirmed by repeat testing. In a patient with classic symptoms of hyperglycemia or hyperglycemic crisis, random plasma glucose results greater than or equal to 200 mg/dL meet the criteria for diagnosis of diabetes. Reference: Standards of Medical Care in Diabetes 2016, [place] Diabetes Association. Diabetes Care. 2016.39(Suppl 1). LAB BUN 7-21 mg/dL BUN 21 LAB CRET 0.58-0.96 mg/dL Creatinine 0.78 LAB NA 136-144 mmol/L Sodium 140 LAB K 3.7-5.1 mmol/L Potassium 3.7 LAB CL 97-105 mmol/L Chloride Low 96 LAB CO2 22-30 mmol/L CO2 26 LAB AGAP 9-18 mmol/L Anion Gap 18 LAB ALT 7-38 U/L ALT 14 LAB GFRAA eGFR- Amer. >60 LAB GFRNAA . eGFR-All Other Races >60 Result Comment: eGFR (Estimated GFR) Units of measure: mL/min/1.73 meters squared eGFR is derived from the reexpressed MDRD Study equation using the following parameters: serum creatinine, age, gender and race. The creatinine assay has been calibrated to be traceable to IDMS. An eGFR <60 mL/min/1.73m2 for >3 months is consistent with chronic kidney disease. Refer to KDOQI guidelines for clinical interpretation. In patients with unstable renal function, e.g. those with acute kidney injury, the eGFR may not accurately reflect actual GFR. Performed By: #### CBC, CMP #### [facility] [address] [place], [place] [address] ALLIED HEALTH Observed: 06/25/2018 Status: COMPLETED Source: [place] 12:36 PM [facility] REPOSITORY HNO ID: [id number] Author: Priya (Ex Phys Carlos Service: Cardiovascular Medicine Author Type: Hotel General Manager Type: Allied Health Filed: 06/25/2018 12:40 PM Note Text: CARDIAC REHABILITATION PHASE I ASSESSMENT PATIENT NAME: Cruz Jacobo SERVICE DATE: June 25, 2018 SESSION TIME: 9:48am.lhp BP HR SpO2 % Flow/Rate L/min Pain (0-10) Supine N/A patient seated in room Seated (edge of bed > 30 sec) Yes 102/68 112 94% 6L 1 buttocks Sit --> Stand (stand unassisted > 30 sec) No 106/80 116 N/A 6L 1 Ambulation (>10? unassisted) No 118/78 127 93% 6L 1 Post Yes 102/73 115 95% 6L 1 Pre-Exercise Assessment 1. Ankle Pumps x 5: Left - Yes Right - Yes 2. Point Pain in Calf: Left - No Right - No 3. Dorsiflex: Left - Yes Right - Yes 4. Overhead Reach x 3: Left - Yes Right - Yes 5. Unstable Sternum: No 6. Shoulder Pain: Left - No Right - No Exercise Distance: ~280 feet Duration: ~4 minutes Assistance: Contact guard assist Device: mobilizer RECOMMENDATIONS: Ambulate: with supervision - CGA Oxygen: with O2 6L as needed Assist Device: yes - walker COMMENTS: 1. Instructed on continued increased ambulation as tolerated 4-6 times per day. 2. Reviewed signs and symptoms of exercise intolerance. 3. Patient steady with ambulation. No complaints voiced with ambulation. Sinus tachycardia throughout session. RN aware. Will follow. 4. Patient and family were encouraged to attend the 3:00 pm cardiac rehab class offered Wednesday, Wednesday, and Wednesday in J5-3-142. 5. Phase II cardiac rehab discussed and copy of physician referral for Phase II cardiac rehab provided to the patient. 6. Home exercise guidelines given and reviewed as follows: Frequency: 4-6 days/week Intensity: 3-4/10 RPE Time: 20-30 minutes/day Type: Walking PRIYA VINCENT, EX PHYS Ext [id number] June 25, 2018 12:36 PM PROGRESS Observed: 06/25/2018 Status: COMPLETED Source: [place] 7:47 AM [facility] REPOSITORY HNO ID: [id number] Author: Lennie Doty Service: Cardiac Surgery Author Type: Nurse Practitioner Type: Progress Notes Filed: 06/25/2018 9:25 AM Note Text: [facility] POSTOP PROGRESS NOTE Day of Surgery:06/22/2018 S/P SURGERY: Pericardial Window Subxiphoid. INTERVAL EVENTS / PERTINENT ROS: Pericardial drain 120cc/24hrs Rhythm: NSR Intake/Output Summary (Last 24 hours) at 06/25/18 0747 Last data filed at 06/25/18 0600 Gross per 24 hour Intake 582 ml Output 1595 ml Net -1013 ml EKG: most recent image reviewed, most recent report reviewed TELE: most recent recordings reviewed CXR: most recent image reviewed, most recent report reviewed Echocardiogram: most recent report reviewed PHYSICAL EXAM: BP 120/70 Pulse 109 Temp 36.4 ?C (97.5 ?F) (Oral) Resp 18 Ht 162.6 cm (5' 4) Wt 66.8 kg (147 lb 3.2 oz) SpO2 96% BMI 25.27 kg/m? Neuro: NAD, AANDO X3. Follows commands and answers questions appropriately CV: S1S2, RRR, no murmur Resp: Diminished with expiratory wheezes, even and unlabored on 4-6L NC oxygen Abd: soft, non-tender +BS, +BM Ext: No LE edema Wounds: Clean, dry and intact Chest tubes: MS pericardial víctor 120cc/24hrs PMW: no HISTORY, ASSESSMENT AND PLAN: No problems updated. DAILY STEP DOWN CHECKLIST FOR CATHETER RELATED INFECTION PREVENTION CVC, PICC, Josefina and/or Permacath present? No Does the patient have a urinary catheter beyond POD 2? No VTE Risk Assessment: High risk VTE Mechanical and/or Pharmacologic Prophylaxis: IPC Device, GCS and Subcutaneous Heparin Labs and medications reviewed in Epic Case discussed with CTS fellow for Dr. Moran SIGNATURE: Judith Doty APRN.CNP PATIENT NAME: Cruz Jacobo DATE: June 25, 2018 TIME: 6:52 AM PAGER/CONTACT #: [phone] CBC Collected: 06/25/2018 Status: F Source: [place] 5:43 AM [facility] TYPE CODE TESTS RESULT OUT OF REFERENCE UNITS RANGE LAB WBC 3.70-11.00 k/uL WBC 7.30 LAB RBC 3.90-5.20 m/uL RBC High 6.03 LAB HGB 11.5-15.5 g/dL High Hemoglobin 18.9 LAB HCT 36.0-46.0 % High Hematocrit 57.5 LAB MCV 80.0-100.0 fL MCV 95.4 LAB MCH 26.0-34.0 pG MCH 31.3 LAB MCHC 30.5-36.0 g/dL MCHC 32.9 LAB RDWCV 11.5-15.0 % RDW-CV 13.5 LAB PLTCT 150-400 k/uL Low Platelet Count 145 LAB MPV 9.0-12.7 fL MPV 11.0 LAB ABSNUC <0.01 k/uL Absolute nRBC <0.01 Performed By: #### CBC, CMP #### [facility] [address] [place], [place] [address] COMP METABOLIC PANEL Collected: 06/25/2018 Status: F Source: [place] 5:43 AM [facility] REPOSITORY TYPE CODE TESTS RESULT OUT OF REFERENCE UNITS RANGE LAB TP 6.3-8.0 g/dL Protein, Total 7.0 LAB ALB 3.9-4.9 g/dL Low Albumin 3.3 LAB CA 8.5-10.2 mg/dL Calcium, Total 9.3 LAB TBIL 0.2-1.3 mg/dL Bilirubin, Total 0.5 LAB ALKP 34-123 U/L Alkaline Phosphatase 73 LAB AST 13-35 U/L AST 20 LAB GLU 74-99 mg/dL Glucose 96 Result Comment: The [place] Diabetes Association (ADA) provides guidance for cutoff values for fasting glucose and random glucose. The ADA defines fasting as no caloric intake for at least 8 hours. Fas ting plasma glucose results between 100 to 125 mg/dL indicate increased risk for diabetes (prediabetes). Fasting plasma glucose results greater than or equal to 126 mg/dL meet the criteria for diagnosis of diabetes. In the absence of unequivocal hyperglycemia, results should be confirmed by repeat testing. In a patient with classic symptoms of hyperglycemia or hyperglycemic crisis, random plasma glucose results greater than or equal to 200 mg/dL meet the criteria for diagnosis of diabetes. Reference: Standards of Medical Care in Diabetes 2016, [place] [employer]. Diabetes Care. 2016.39(Suppl 1). LAB BUN 7-21 mg/dL BUN 16 LAB CRET 0.58-0.96 mg/dL Creatinine 0.65 LAB NA 136-144 mmol/L Sodium 139 LAB K 3.7-5.1 mmol/L Potassium 4.0 LAB CL 97-105 mmol/L Chloride 98 LAB CO2 22-30 mmol/L CO2 29 LAB AGAP 9-18 mmol/L Anion Gap 12 LAB ALT 7-38 U/L ALT 12 LAB GFRAA eGFR- Amer. >60 LAB GFRNAA . eGFR-All Other Races >60 Result Comment: eGFR (Estimated GFR) Units of measure: mL/min/1.73 meters squared eGFR is derived from the reexpressed MDRD Study equation using the following parameters: serum creatinine, age, gender and race. The creatinine assay has been calibrated to be traceable to IDMS. An eGFR <60 mL/min/1.73m2 for >3 months is consistent with chronic kidney disease. Refer to KDOQI guidelines for clinical interpretation. In patients with unstable renal function, e.g. those with acute kidney injury, the eGFR may not accurately reflect actual GFR. Performed By: #### CBC, CMP #### [facility] [address] [place] [id number] CNDS Observed: 06/24/2018 Status: COMPLETED Source: [place] 4:44 PM [facility] REPOSITORY HNO ID: [id number] Author: Lennie Doty Service: Cardiac Surgery Author Type: Nurse Practitioner Type: Discharge Summaries Filed: 06/27/2018 11:21 AM Note Text: Department of Cardiothoracic Surgery Discharge Summary PATIENT NAME: Cruz Jacobo ADMISSION DATE: 06/22/2018 DISCHARGE DATE: 06/27/2018 Attending Physician/Surgeon: Maykel Moran Primary Service: i Cts Team A Code Status: Not on file [facility] Primary Card Puncher: Noa 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 Cruz Jacobo is a 57 year old female who presents for consultation regarding chronic idiopathic pericardial effusion that is not resolving on dual therapy with colchicine and Ibuprofen for an extended periods who is now likely symptomatic with a large pericardial effusion that on review of the echo appears amenable to anterior drainage. Operations during Hospitalization: 06/22/2018 Pericardial Window Subxiphoid. Hospital Course: * How was the Reason for Hospitalization Addressed: Indication for Surgery: pericardial effusion Preop LVEF: 70% RVF: Moderate Cath: No significant coronary disease Cards: Noa EKG: NORMAL SINUS RHYTHM PMH/PSH: COPD, Fibromyalgia, HTN, HPL, pericardial effusion, smoker, urge incontinence, secondary polycythemia Surgery; 06/23/2018: Pericardial Window Subxiphoid. ?A/P: -pericardial drain to víctor; 30cc/24hrs-Colchicine stopped this fall by Dr. Latham when evaluated. Motrin was continued but with recent bleeding in stools which will by evaluated by local GI MD after recovered from pericardial window -COPD: albuterol, breo ellipta and spiriva; on RA -Constipation:lactulose, miralax and MOM. +BM -HTN: Norvasc BB and IV lasix -From [place], [place]. No needs. DC today, Cards and CTS OPD appt requested. Discharge Planning: Anticipated Discharge Date: Unknown Barriers to Discharge: Unknown, Other: removal of pericardial drain Care Management Discharge Needs: * What were the Active Issues: Treatment of COPD, removal of pericardial drain * Surgical Pathology/Microbiology: Cultures are pending at the time of discharge, no malignant cells seen on cytology * Hospital Course Complicated by: COPD * Extended Hospital Stay Due to: n/a * Specific Medication Changes: The patient's Norvasc was stopped and Metoprolol 12.5mg BID was started * Pain: Controlled * Surgical Incisions/Wounds: Subxyphoid incision is clean dry and intact * Patient Condition at Discharge: Improved * Disposition: Home/Self Care Problem List: Patient Active Hospital Problem List: Transition of care performed with sharing of clinical summary (06/23/2018) HTN (hypertension) (04/15/2015) Gastroesophageal reflux disease without esophagitis (04/15/2015) Pericardial effusion (10/22/2015) Chronic obstructive pulmonary disease (HCC) (04/15/2015) Secondary polycythemia (12/21/2017) Pleural effusion (06/23/2018) Constipation (06/23/2018) Mixed hyperlipidemia (04/15/2015) Malnutrition of moderate degree (HCC) (06/23/2018) Consults: n/a Procedures Performed and Major Radiology: Echo Information Provided to the Patient: Patient given copy of After Visit Summary which included activity instructions, diet instructions, wound care instructions, medication instructions and follow up appointment ALLERGIES Allergen Reactions - Bee Sting Swelling, Shortness of Breath - Aleve [Naproxen] Hives Discharge Medications: Current Discharge Medication List START taking these medications metoprolol tartrate (short acting) (LOPRESSOR) 12.5 mg Take 12.5 mg by mouth every 12 hours. Qty: 30 tablet Refills: 0 Associated Diagnoses:Pericardial effusion polyethylene glycol 3350 (MIRALAX, GLYCOLAX) 17 g Take 17 g by mouth once daily. Qty: 30 Packet Refills: 0 Comments: BDT simethicone, chewable (MYLICON) 80 mg Take 80 mg by mouth four times daily as needed (gas). Qty: 25 tablet Refills: 0 Comments: BDT traMADol (ULTRAM) 50 mg Take 50 mg by mouth every 6 hours as needed for Pain. Qty: 28 tablet Refills: 0 Comments: BDT Associated Diagnoses:Postoperative pain CONTINUE these medications which have NOT CHANGED atorvastatin (LIPITOR) 10 mg Take 10 mg by mouth daily at bedtime. Qty: 90 tablet Refills: 1 baclofen (LIORESAL) 20 mg tablet take 1 tablet by mouth 2 to three times a day for muscle spasm Qty: 90 tablet Refills: 5 Associated Diagnoses:Fibromyalgia; Muscle cramps buPROPion HCl, smoking deter, 150 mg Tb12 take 1 tablet by mouth once daily for 2 weeks then take 1 tablet twice a day Qty: 60 tablet Refills: 5 Associated Diagnoses:Smoker gabapentin (NEURONTIN) 1,200 mg Take 1,200 mg by mouth daily at bedtime. Qty: 90 capsule Refills: 5 ibuprofen (MOTRIN) 800 mg tablet take 1 tablet by mouth every 8 hours with food if needed for pain Qty: 90 tablet Refills: 1 Associated Diagnoses:Low back pain, unspecified back pain laterality, unspecified chronicity, with sciatica presence unspecified omeprazole (PRILOSEC) 20 mg capsule take 1 tablet by mouth daily 1/2 HOUR BEFORE BREAKFAST Qty: 30 capsule Refills: 5 Associated Diagnoses:Gastroesophageal reflux disease with esophagitis oxybutynin ER (DITROPAN XL) 10 mg 24 hr tablet take 1 tablet by mouth once daily - TO REPLACE DETROL Qty: 90 tablet Refills: 1 Comments: Please let patient know medication had to be changed from Detrol due to insurance. PROAIR HFA 90 mcg/actuation inhaler inhale 2 puffs by mouth four times a day Qty: 8.5 g Refills: 0 rOPINIRole (REQUIP) 0.5 mg tablet take 2 tablets by mouth at bedtime Qty: 60 tablet Refills: 5 SPIRIVA WITH HANDIHALER 18 mcg inhalation capsule inhale contents of 1 capsule as directed once daily Qty: 30 capsule Refills: 3 Comments: Please call if not covered by insurance. Alternatives would include Tudorza or Incruse. Associated Diagnoses:Chronic obstructive pulmonary disease, unspecified COPD type (HCC) SYMBICORT 2 Puffs Inhale 2 Puffs as instructed twice daily. aspirin, enteric coated (ASPIRIN, ENTERIC COATED) 81 mg Take 81 mg by mouth once daily. Qty: 30 tablet Refills: 0 Cholecalciferol (Vitamin D3) 2,000 Units Take 2,000 Units by mouth twice daily. EPINEPHrine (EPIPEN) 0.3 mg Inject 0.3 mg intramuscularly as needed. Qty: 1 Each Refills: 1 STOP taking these medications amLODIPine (NORVASC) 5 mg tablet Comments: Reason for Stopping: benazepril (LOTENSIN) 20 mg Comments: Reason for Stopping: mupirocin (BACTROBAN) 1 application Comments: Reason for Stopping: Transitions of Care Critical Issues: Outpatient Management: * Are there important medication changes and/or outstanding issues that need to be addressed:The patient is unable to come back to [place] for a follow up in the Cardiac Surgery department. She will see her primary care provider in one week with an echo and Dr. Latham in 4 weeks with an echo : Future Appointments Date Time Provider Department Center 09/19/2018 10:30 AM [id number] [facility] 11/01/2018 9:45 AM [id number] [facility] 11/01/2018 9:45 AM [id number] [facility] 12/07/2018 2:00 PM [id number] [facility] 01/27/2019 1:20 PM [id number] MOORE) RAYA [facility] 01/27/2019 1:20 PM [id number] MOORE) [facility] Stro Highest Readmission Risk Score: 14 The 30 day readmissions risk score is derived from an internally validated risk model which evaluates patient level characteristics, utilization history, medication orders and lab results up until the day of discharge. Patients with a score of 40 or above are considered highest risk for readmission. Specific patient level drivers will be listed at the bottom of the summary. This patient?s risk for 30-day readmission is determined using the following contributing drivers Pt variables contributing to increased readmission risk: 15 Most Recent BUN Result 14 Active Medication Orders 9 First Resulted Calcium During Admission 1 Insurance - Medicare 1 History of COPD 1 Active Anticoagulant Electronically SIGNED by Licensed Independent Practitioner: Judith Doty CNP PROGRESS Observed: 06/24/2018 Status: COMPLETED Source: [place] 4:31 PM [facility] REPOSITORY O ID: [id number] Author: Yessica Elias (Michael) Genna Service: Cardiac Surgery Author Type: Nurse Practitioner Type: Progress Notes Filed: 06/24/2018 4:55 PM Note Text: [facility] CTS POSTOP PROGRESS NOTE Day of Surgery:06/22/2018 S/P SURGERY: Pericardial Window Subxiphoid. INTERVAL EVENTS / PERTINENT ROS: -On 4-6 L -stomach dilation improved on today's KUB -Pain well controled -Maintain pericardial drain for output Rhythm: NSR Intake/Output Summary (Last 24 hours) at 06/24/18 1631 Last data filed at 06/24/18 1446 Gross per 24 hour Intake 222 ml Output 2230 ml Net -2008 ml EKG: most recent image reviewed, most recent report reviewed TELE: most recent recordings reviewed CXR: most recent image reviewed, most recent report reviewed Echocardiogram: most recent report reviewed PHYSICAL EXAM: BP 108/73 Pulse 105 Temp 36.5 ?C (97.7 ?F) (Oral) Resp 18 Ht 162.6 cm (5' 4) Wt 68.6 kg (151 lb 4.8 oz) SpO2 94% BMI 25.97 kg/m? Neuro: NAD, AANDO X3. Follows commands and answers questions appropriately CV: S1S2, RRR Resp: Diminished with expiratory wheezes, even and unlabored Abd: SNT; +BS, -BM Ext: No LE edema Wounds: C/D/I Chest tubes: MS pericardial víctor PMW: n/a HISTORY, ASSESSMENT AND PLAN: Problem Transition of Care Performed With Sharing of Clinical Summary Indication for Surgery: pericardial effusion Preop LVEF: 70% RVF: Moderate Cath: No significant coronary disease Cards: Noa EKG: NORMAL SINUS RHYTHM PMH/PSH: COPD, Fibromyalgia, HTN, HPL, pericardial effusion, smoker, urge incontinence, secondary polycythemia Surgery; 06/23/2018: Pericardial Window Subxiphoid. ?A/P: -pericardial drain to víctor; maintain -COPD: albuterol, breo ellipta and spiriva; wean O2 for pulse Ox >90 (not on home O2); will likely need home O2, de-sat study 24 hours prior to discharge -Constipation: fleetX2, miralax and MOM -HTN: Norvasc BB and IV lasix -From [place]; [facility], will likely require home O2 Discharge Planning: Anticipated Discharge Date: Unknown Barriers to Discharge: Unknown, Other: removal of pericardial drain Care Management Discharge Needs: Pericardial Effusion History: chronic idiopathic pericardial effusion that is not resolving on dual therapy with colchicine and Ibuprofen for an extended periods who is now likely symptomatic with a large pericardial effusion Assessment: s/p pericardial window Plan: maintain pericardial víctor drain Htn (Hypertension) History: Pre-op hx on norvasc and lotensin Assessment: normotensive Plan: continue on IV lasix, BB and norvasc Gastroesophageal Reflux Disease Without Esophagitis History: Pre-op hx on prilosec Assessment: no c/o reflux Plan: continue on Protonix and resume pre-op regimen at DC Pleural Effusion History: Post-op Assessment: on 4-6 L, small effusions on today CXR Plan: 20 IV BID lasix Secondary Polycythemia History: Saw Hematology 11/2017, suspected secondary to smoking. Assessment: [facility] Plan: follow CBC trends Chronic Obstructive Pulmonary Disease (Hcc) History: Pre-op hx on albuterol, Symbicort and Spiriva Assessment: on 46L Plan: wean O2 to pulse Ox >90 and resume pre-op regimen (per our formulary); desat study prior to DC Smoking History: Started at the age of 13 up to 3.5 PPD. Since 2007 has been smoking 1.5-2 PPD Assessment: no current withdrawal complaints Plan: smoking cessation education Constipation History: Post-op KUB 06/23 w/Severe dilation of the proximal stomach on KUB Assessment: improved KUB, no N/V or abd distension, denies abd pain Plan: fleet enemaX2, daily MOM and Miralax Mixed Hyperlipidemia History: Pre-op hx on lipitor 10 mg Assessment: recent LDL 90 Plan: Continue lipitor 10 mg DAILY STEP DOWN CHECKLIST FOR CATHETER RELATED INFECTION PREVENTION CVC, PICC, Josefina and/or Permacath present? No Does the patient have a urinary catheter beyond POD 2? No VTE Risk Assessment: High risk VTE Mechanical and/or Pharmacologic Prophylaxis: IPC Device, GCS and Subcutaneous Heparin Labs and medications reviewed in Epic Case discussed with CTS fellow/staff SIGNATURE: Yessica Vail APRN.PRECINCT I POLICE SERGEANT PAGER/CONTACT #: [phone] June 24, 2018 CASE MANAGEM Observed: 06/24/2018 Status: COMPLETED Source: [place] 1:39 PM [facility] REPOSITORY HNO ID: [id number] Author: Fatou SchofieldRn) ARIA Hayward Service: Case Management Author Type: Registered Nurse Type: Care Mgt Progress Note Filed: 06/24/2018 1:40 PM Note Text: CARE MANAGEMENT PROGRESS NOTE SERVICE DATE: 06/24/2018 SERVICE TIME: 1:39 PM LOS: 2 days Needs Prior to Discharge: To Be Determined;OT/PT Evaluation;Oxygen Set-up;Home Care Order;Facility or Agency Choices NO WEEKEND DC. DCP MEDICAL CLEARANCE AND UPDATED EVALS. SIGNATURE: Fatou Hayward RN PATIENT NAME: Cruz Jacobo DATE: June 24, 2018 TIME: 1:39 PM PAGER/CONTACT #: [phone] PLAN OF CARE Observed: 06/24/2018 Status: COMPLETED Source: [place] 12:19 PM [facility] REPOSITORY HNO ID: [id number] Author: Gulshan Mac (Aerospace Project Manager) Service: (none) Author Type: (none) Type: Plan of Care Filed: 06/24/2018 12:20 PM Note Text: [facility] SPECIALIST BEDSIDE DELIVERY SURVEY 1. Patient to use [facility] Bedside Delivery - YES 2. If fax, patient would like us to fax prescriptions to Pharmacy of choice a. Pharmacy: b. Location: c. Phone: 3. Insurance card on file - YES 4. Credit card for payment - N/A No prescriptions yet. Please page upon discharge. XR CHEST 1V FRONTAL Observed: 06/24/2018 Status: F Source: [facility] 6:26 AM [facility] [facility] REPOSITORY * * *Final Report* * * DATE OF EXAM: Jun 24 2018 6:26AM [id number] - XR CHEST 1V FRONTAL PORT / PROCEDURE REASON: Pleural effusion * * * * Physician Interpretation * * * * CHEST RADIOGRAPH (PORTABLE SINGLE VIEW AP) Exam Date/Time: 06/24/2018 6:26 AM Indications: Pleural effusion MQ: [id number]_5 Comparison: 1 day earlier RESULTS: See Impression. IMPRESSION: Lines, Tubes, and Devices: Stable. Drain. Lungs and Pleura: Small effusions and overlying opacity slightly increased from prior. No pneumothorax. Cardiomediastinal silhouette: Stable cardiac silhouette. Tobacco Stemmer: [facility] Transcribe Date/Time: Jun 24 2018 8:03A Dictated by : DAMARIS CANTU MD This examination was interpreted and the report reviewed and electronically signed by: DAMARIS CANTU MD on Jun 24 2018 8:05AM EST [id number] XR ABDOMEN 1V SUPINE Observed: 06/24/2018 Status: F Source: [place] 6:26 AM [facility] REPOSITORY * * *Final Report* * * DATE OF EXAM: Jun 24 2018 6:26AM [id number] - XR ABDOMEN 1V SUPINE / PROCEDURE REASON: Abd pain, unspecified * * * * Physician Interpretation * * * * ABDOMEN PORTABLE HISTORY: Abdominal pain. TECHNIQUE: Single View, Supine Abdomen; Number of Images: 1 COMPARISON: 06/23/2018 RESULT: See impression. IMPRESSION: Gastric dilation has resolved. No gas-filled, dilated small bowel loops. Gas in a nondilated colon. Excessive feces in the RIGHT colon and rectum. Mediastinal drain overlies the abdomen. Left pleural effusion. Tobacco Stemmer: [facility] Transcribe Date/Time: Jun 24 2018 8:14A Dictated by : BRANT CARRASQUILLO This examination was interpreted and the report reviewed and electronically signed by: NATASHA HALE MD on Jun 24 2018 9:57AM EST [id number] CBC Collected: 06/24/2018 Status: F Source: [place] 3:54 AM [facility] REPOSITORY TYPE CODE TESTS RESULT OUT OF REFERENCE UNITS RANGE LAB WBC 3.70-11.00 k/uL WBC 10.80 LAB RBC 3.90-5.20 m/uL RBC High 5.90 LAB HGB 11.5-15.5 g/dL High Hemoglobin 18.5 LAB HCT 36.0-46.0 % High Hematocrit 57.0 LAB MCV 80.0-100.0 fL MCV 96.6 LAB MCH 26.0-34.0 pG MCH 31.4 LAB MCHC 30.5-36.0 g/dL MCHC 32.5 LAB RDWCV 11.5-15.0 % RDW-CV 13.6 LAB PLTCT 150-400 k/uL Low Platelet Count 149 LAB MPV 9.0-12.7 fL MPV 11.9 LAB ABSNUC <0.01 k/uL Absolute nRBC <0.01 Performed By: #### CBC, CMP #### [facility] [address] [place], [place] [address] COMP METABOLIC PANEL Collected: 06/24/2018 Status: F Source: [place] 3:54 AM [facility] REPOSITORY TYPE CODE TESTS RESULT OUT OF REFERENCE UNITS RANGE LAB TP 6.3-8.0 g/dL Protein, Total 6.5 LAB ALB 3.9-4.9 g/dL Low Albumin 3.1 LAB CA 8.5-10.2 mg/dL Calcium, Total 9.4 LAB TBIL 0.2-1.3 mg/dL Bilirubin, Total 0.5 LAB ALKP 34-123 U/L Alkaline Phosphatase 67 LAB AST 13-35 U/L AST 16 Result Comment: Results may be falsely increased due to interference by hemolysis. Suggest reorder as clinically indicated. LAB GLU 74-99 mg/dL Glucose 87 Result Comment: The [place] Diabetes Association (ADA) provides guidance for cutoff values for fasting glucose and random glucose. The ADA defines fasting as no caloric intake for at least 8 hours. Fas ting plasma glucose results between 100 to 125 mg/dL indicate increased risk for diabetes (prediabetes). Fasting plasma glucose results greater than or equal to 126 mg/dL meet the criteria for diagnosis of diabetes. In the absence of unequivocal hyperglycemia, results should be confirmed by repeat testing. In a patient with classic symptoms of hyperglycemia or hyperglycemic crisis, random plasma glucose results greater than or equal to 200 mg/dL meet the criteria for diagnosis of diabetes. Reference: Standards of Medical Care in Diabetes 2016, [place] [employer] Association. Diabetes Care. 2016.39(Suppl 1). LAB BUN 7-21 mg/dL BUN 15 LAB CRET 0.58-0.96 mg/dL Creatinine 0.69 LAB NA 136-144 mmol/L Sodium Low 134 LAB K 3.7-5.1 mmol/L Potassium 4.2 LAB CL 97-105 mmol/L Chloride Low 94 LAB CO2 22-30 mmol/L CO2 28 LAB AGAP 9-18 mmol/L Anion Gap 12 LAB ALT 7-38 U/L ALT 10 LAB GFRAA eGFR- Amer. >60 LAB GFRNAA . eGFR-All Other Races >60 Result Comment: eGFR (Estimated GFR) Units of measure: mL/min/1.73 meters squared eGFR is derived from the reexpressed MDRD Study equation using the following parameters: serum creatinine, age, gender and race. The creatinine assay has been calibrated to be traceable to IDMS. An eGFR <60 mL/min/1.73m2 for >3 months is consistent with chronic kidney disease. Refer to KDOQI guidelines for clinical interpretation. In patients with unstable renal function, e.g. those with acute kidney injury, the eGFR may not accurately reflect actual GFR. Performed By: #### CBC, CMP #### [facility] [address] [address] CASE MGT INIT Observed: 06/23/2018 Status: COMPLETED Source: [facility] 5:08 PM [facility] RE[facility] HNO ID: [id number] Author: Fatou (Rn) ARIA Hayward Service: Case Management Author Type: Registered Nurse Type: Care Mgt Initial Assessment Filed: 06/23/2018 5:16 PM Note Text: CARE MANAGEMENT: ASSESSMENT AND DISCHARGE PLAN SERVICE DATE: 06/23/2018 SERVICE TIME: 5:09 PM PRIMARY CARE PHYSICIAN: Tex Miller MD CONFIRMED ADMISSION STATUS: Inpatient Needs Prior to Discharge: To Be Determined;OT/PT Evaluation MEDICAL: Patient/Talent Acquisition Coordinator Stated Goals: To improve my functional status To return home to life as it was Health Insurance: [facility] MEDICARE [facility] Health Issues Impacting Discharge Plan: Chronic COPD, HTN, GERD, MALNUTRITION, CHF, INSOMIAN, LOW BACK PAIN, PERICARDIAL EFFUSION, PLEAURAL EFFUSION, STOMACH DILATION. Last Admission Date: none Is this Within the Past 30 days? No Advance Directive: Current Advance Directive: None In Chart: No Chuck Wagon Driver Attempted to Assist with AD Completion: Yes Action: Education Provided Health Literacy: 1. How often do you need to have someone help you when you read instructions, pamphlets, or other written material from your doctor or pharmacy? Never - 1 2. How confident are you filling out medical forms by yourself? Extremely - 1 If Patient scores > 3 on either question, the following interventions were put into place: Patient did not score > 3 FUNCTIONAL AND COGNITIVE/BEHAVIORAL PRIOR TO ADMISSION: Baseline Mental Status: Alert AND Oriented, Person, Place , Time and Situation Functional Status: Independent Does Patient Currently Receive Any Community Services or Home Care? None Equipment Prior to Admission: Aerosols/Intermittent positive breathing/Respiratory Treatments Has the Patient Been in a Alf Facility in the Past 30 days? No SOCIAL: Living Arrangement: Home Lives With: Spouse Financial Resources: Unemployed Primary Contact: Extended Emergency Contact Information Primary Emergency Contact: Evaristo Huizar Novi Relation: Brother Supportive: Yes Other Important Patient Contacts: None Caregiver Assessment: Caregiver is ready, willing and able to meet the patient's needs as recommended by the inter-professional team? No Caregiver Needed Patient's transition needs and plan for meeting these needs: Per patient her family/spouse will will provide all needed assistance and supervision. this admission? No Medication Adherence: I am convinced of the importance of my prescription medication: Agree completely - 0 I worry that my prescription medication will do more harm than good to me Disagree mostly - 0 I feel financially burdened by my [id number] expenses for my prescription medication: Disagree completely - 0 Patient is categorized as low risk < 2 Are you interested in bedside delivery of your medications? Yes Food Concerns: In the Last Month, Have You had Trouble Getting Food? No trouble getting food During the Last Month, Have You Worried Whether Your Food Would Run Out Before You Had Enough Money to Buy More? No Is the Patient Psychosocially Complex? No ASSESSMENT AND PLAN: Medical Needs: 2 or more chronic diseases Psychosocial Needs: None FREEDOM OF CHOICE EXPLAINED: N/A pending medical necessity POTENTIAL TRANSITION PLANS Home Home Care Met with patient at bedside and discussed the role of case management and discharge planning. Patients family will drive patient home at discharge. Patient is independent of DME and home o2. CM will continue to follow for discharge planning. Patient may have o2 needs. SIGNATURE: Fatou Hayward RN PATIENT NAME: Cruz Jacobo DATE: June 23, 2018 TIME: 5:09 PM PAGER/CONTACT #: [phone] NUTRITION Observed: 06/23/2018 Status: COMPLETED Source: [place] 12:31 PM [facility] RE[facility] HNO ID: [id number] Author: Marshall Chaidez) JAREN Taylor Service: Nutrition Therapy Author Type: Registered Dietitian Type: Nutrition Filed: 06/23/2018 12:48 PM Note Text: NUTRITION THERAPY INITIAL ASSESSMENT SERVICE DATE: 06/23/2018 SERVICE TIME: 0900 RECOMMENDED MALNUTRITION DIAGNOSIS: MODERATE PROTEIN-CALORIE MALNUTRITION In the context of Chronic Illness or Injury based on: Subcutaneous Fat Loss: Mild Loss Muscle Loss Mild Loss NUTRITION CARE PLAN: Problem, Etiology and Signs/Symptoms: Suboptimal oral intake related to decreased appetite and nausea as evidenced by pt interview, wt loss of 16.1% x ~9 months, and physical findings. Intervention: 1) HH 4g Na+ restricted diet 2) Zone Bar BID (400kcal, 28g ptn) 3) Recommend daily MVI 4) Maintain normal bowel regimen 5) Please document accurate intakes of meals and supplements to further assess nutritional status. Thank you. Goal: pt to meet >/ 75% of est needs prior to d/c. Monitor and Evaluation: 1) PO intake 2) Supplement tolerance 3) Wt status 4) Biochemical Markers 5) Skin integrity 6) Plan of care Discharge Nutrition Recommendations: Diet: as above, unless otherwise indicated Supplements: high kcal/high ptn commercial beverage if PO </ 75% of est needs _ _ _ _ _ _ _ _ _ _ _ _ _ _ _ _ _ _ _ _ _ _ _ _ _ _ _ _ _ _ _ _ _ _ _ _ _ _ _ _ _ _ _ _ _ _ _ Per HPI: Pt is a 57 y/o F with a previous medical hx of CHF, COPD, GERD, HLD, vit d deficiency. Nutritional Intake Prior to Admission: Pt reports decreased appetite and ongoing nausea PURCHASING AGENT and on admission. Pt denies any chewing/swallowing difficulties, no current D/C. Pt denies any food allergies. Pt is agreeable to supplementation while admitted (does not like Ensure or Boost). GI symptoms: nausea Nutrition Abdominal Exam: and not assessed ANTHROPOMETRICS Height: 162.6 cm (5' 4) Admission Weight: 68.5 kg (151 lb) Current Weight: 69.4 kg (153 lb 1.6 oz) Body mass index is 26.28 kg/m?. overweight Pt reports a UBW of ~200#, but is unable to determine when that was. Does not appear to be over the past year. HT/WT/BMI HEIGHT WEIGHT 09/01/2017 82.872 kg 12/06/2017 5' 5 78.019 kg 12/09/2017 5' 5 77.111 kg 12/09/2017 5' 5 77.111 kg 12/20/2017 5' 4 77.338 kg 01/26/2018 5' 4 73.483 kg 03/04/2018 74.571 kg 03/22/2018 5' 4 73.483 kg 03/22/2018 5' 4 73.483 kg 03/25/2018 73.029 kg 03/28/2018 73.483 kg 04/27/2018 5' 4 72.394 kg 05/27/2018 70.308 kg 06/07/2018 70.308 kg 06/08/2018 5' 4 68.04 kg 06/09/2018 5' 4 71.215 kg 06/23/2018 69.446 kg Wt loss PURCHASING AGENT: 6.8% x ~3 months - not significant 16.1% x ~9 months - not significant Marshall Body Weight: 54.5kg Dosing Weight: 69.4 kg Resting Metabolic Rate: 1273 Estimated kilocalorie needs: 7352-7863 kilocalories determined by 25-30 kcal/kg @ CBW Estimated protein needs: 76-90 grams determined by 1.1-1.3 g/kg Current weight Estimated fluid needs: ~4447-5220 milliliters based on 1 mL per kcal (unless otherwise indicated) NUTRITION FOCUSED PHYSICAL EXAM: Subcutaneous Fat Loss Orbital Mild Triceps Moderate Mid-axillary at the iliac crest Unable to determine at this time Muscle Loss Locations: Temporalis Mild Pectoralis Mild Deltoids Moderate Interosseous Mild Latissimus dorsi, trapezius Unable to determine at this time Quadriceps Unable to determine at this time Gastrocnemius Unable to determine at this time Potential micronutrient deficiency revealed in: No deficiency identified Edema: Yes Generalized Ascites: No Assessment of Functional Status: Functional capacity is unrelated to nutrition status Temperature Max:36.9 ?C (98.4 ?F) BP 115/71 Pulse 84 Resp 19 Recent Labs 06/23/18 0743 06/23/18 0457 GLUC 96 101* BUN 15 13 CREAT 0.94 Unable to assay. Specimen significantly hemolyzed. NA 142 137 K 5.3* Unable to assay. Specimen significantly hemolyzed. CHLOR 102 101 CO2 29 25 ALB 3.4* 3.3* HB -- 18.9* HCT -- 58.7* WBC -- 15.40* Potential Signs of Inflammation: hypoalbuminemia Current Pertinent Medications: albuterol 2.5 mg /3 mL (0.083 %) 2.5 mg (PROVENTIL) 2.5 mg INHALATION QID amLODIPine 5 mg tab(s) (NORVASC) 5 mg ORAL DAILY atorvastatin 10 mg tab(s) (LIPITOR) 10 mg ORAL AT BEDTIME fluticasone-vilanterol 100-25 mcg/dose 1 Inhalation (BREO ELLIPTA) 1 Inhalation INHALATION DAILY heparin 5,000 Units injection 5,000 Units SUBCUTANEOUS q 12 H metoclopramide HCl 10 mg injection (REGLAN) 10 mg INTRAVENOUS q 6 H PRN metoprolol tartrate (short acting) 12.5 mg tab(s) (LOPRESSOR) 12.5 mg ORAL q 12 H NaCl 0.9% 2-10 mL 2-10 mL INTRAVENOUS q 12 H ondansetron (PF) 4 mg injection (ZOFRAN) 4 mg INTRAVENOUS q [address] 20 mg tab(s) (PROTONIX) 20 mg ORAL DAILY (6 AM) tiotropium 2.5 mcg/actuation 2 Puff (SPIRIVA RESPIMAT) 2 Puff INHALATION DAILY traMADol 50 mg tab(s) (ULTRAM) 50 mg ORAL q 6 H PRN Surgical Incision 06/22/18 Chest (Active) Dressing Status Initial Post-Op Dressing Intact 06/22/2018 7:26 PM Number of days: 1 Surgical Incision 06/22/18 1724 Chest Tube - Mediastinal (Active) Dressing Status Clean, Dry AND Intact 06/22/2018 7:26 PM Number of days: 0 MNT Billing Type: Initial Assess/15 min 4 units SIGNATURE: Marshall Taylor RD, LD PATIENT NAME: Cruz Jacobo DATE: June 23, 2018 TIME: 12:31 PM PAGER: [phone] XR ABDOMEN 1V SUPINE Observed: 06/23/2018 Status: F Source: [place] 12:08 PM [facility] REPOSITORY * * *Final Report* * * DATE OF EXAM: Jun 23 2018 12:08PM KARELY [id number] - XR ABDOMEN 1V SUPINE / PROCEDURE REASON: Nausea, vomiting * * * * Physician Interpretation * * * * ABDOMEN, 1 VIEW. CLINICAL INFORMATION: Nausea and vomiting. TECHNIQUE: Supine abdomen, 1 image(s) COMPARISON: None RESULT: Pleural drains overlie the abdomen. Severe dilation of the proximal stomach. No dilated small bowel. Colon is debris and gas filled and nondilated to the rectum. Extensive debris and right colon.. No pathologic calcifications. No acute bony abnormality. There is increased opacity at the left lung base silhouetting the left hemidiaphragm. IMPRESSION: Gastric dilation. Tobacco Stemmer: BIRGIT Transcribe Date/Time: Jun 23 2018 1:04P Dictated by : GREG SNYDER, ?? This examination was interpreted and the report reviewed and electronically signed by: ZAN WESTFALL MD on Jun 23 2018 2:16PM EST [id number] PROGRESS Observed: 06/23/2018 Status: COMPLETED Source: [place] 11:25 AM [facility] REPOSITORY HNO ID: [id number] Author: Yessica Navarrete) Genna Service: Cardiac Surgery Author Type: Nurse Practitioner Type: Progress Notes Filed: 06/23/2018 4:35 PM Note Text: [facility] CTS POSTOP PROGRESS NOTE Day of Surgery:06/22/2018 S/P SURGERY: Pericardial Window Subxiphoid. INTERVAL EVENTS / PERTINENT ROS: -On 6L, denies SOB -c/o NANDV Rhythm: NSR Intake/Output Summary (Last 24 hours) at 06/23/18 1125 Last data filed at 06/23/18 1000 Gross per 24 hour Intake 2350 ml Output 779 ml Net 1571 ml EKG: most recent image reviewed, most recent report reviewed TELE: most recent recordings reviewed CXR: most recent image reviewed, most recent report reviewed Echocardiogram: most recent report reviewed PHYSICAL EXAM: BP 115/71 Pulse 84 Temp 36.3 ?C (97.4 ?F) (Oral) Resp 19 Ht 162.6 cm (5' 4) Wt 69.4 kg (153 lb 1.6 oz) SpO2 93% BMI 26.28 kg/m? Neuro: NAD, AANDO X3. Follows commands and answers questions appropriately CV: S1S2, RRR Resp: Diminished with expiratory wheezes, even and unlabored Abd: SNT; +BS, -BM Ext: No LE edema Wounds: C/D/I Chest tubes: MS pericardial víctor PMW: n/a HISTORY, ASSESSMENT AND PLAN: Problem Transition of Care Performed With Sharing of Clinical Summary Indication for Surgery: pericardial effusion Preop LVEF: 70% RVF: Moderate Cath: No significant coronary disease Cards: Noa EKG: NORMAL SINUS RHYTHM PMH/PSH: COPD, Fibromyalgia, HTN, HPL, pericardial effusion, smoker, urge incontinence Surgery; 06/23/2018: Pericardial Window Subxiphoid. ?A/P: -pericardial drain to víctor; maintain -COPD: albuterol, breo ellipta and spiriva; wean O2 for pulse Ox >90 (not on home O2) -secondary polycythemia: heme asked to weigh in -Severe dilation of the proximal stomach: per GI curbside and review of KUB, make NPO, scheduled BID fleet enema now and in am, IV Reglan, limit narcs, enc mobilization; repeat KUB in am -HTN: Norvasc BB and IV lasix -mod left pleural effusions: IV lasix -From [place]; [facility] to eval Discharge Planning: Anticipated Discharge Date: Unknown Barriers to Discharge: Unknown Care Management Discharge Needs: Pericardial Effusion History: chronic idiopathic pericardial effusion that is not resolving on dual therapy with colchicine and Ibuprofen for an extended periods who is now likely symptomatic with a large pericardial effusion Assessment: s/p pericardial window Plan: maintain pericardial víctor drain Htn (Hypertension) History: Pre-op hx on norvasc and lotensin Assessment: normotensive Plan: continue on IV lasix, BB and norvasc Gastroesophageal Reflux Disease Without Esophagitis History: Pre-op hx on prilosec Assessment: no c/o reflux Plan: continue on Protonix and resume pre-op regimen at DC Pleural Effusion History: Post-op Assessment: moderate on the left Plan: 20 IV BID lasix Secondary Polycythemia History: Saw Hematology 11/2017, suspected secondary to smoking. Assessment: [facility] 18/58 Plan: Awaiting heme input in additional w/up is required Chronic Obstructive Pulmonary Disease (Hcc) History: Pre-op hx on albuterol, Symbicort and Spiriva Assessment: on 6L Plan: wean O2 to pulse Ox >90 and resume pre-op regimen (per our formulary) Fibromyalgia Stomach Dilatation History: Post-op Assessment: Severe dilation of the proximal stomach on KUB, c/o abd pain Plan: per GI curbside and review of KUB, make NPO, scheduled BID fleet enema now and in am, IV Reglan, limit narcs, enc mobilization; repeat KUB in am Mixed Hyperlipidemia History: Pre-op hx on lipitor 10 mg Assessment: recent LDL 90 Plan: Continue lipitor 10 mg DAILY STEP DOWN CHECKLIST FOR CATHETER RELATED INFECTION PREVENTION CVC, PICC, Josefina and/or Permacath present? No Does the patient have a urinary catheter beyond POD 2? No VTE Risk Assessment: High risk VTE Mechanical and/or Pharmacologic Prophylaxis: IPC Device, GCS and Subcutaneous Heparin Labs and medications reviewed in Epic Case discussed with CTS fellow/staff SIGNATURE: Yessica Vail APRN.[facility] PAGER/CONTACT #: [phone] June 23, 2018 COMP METABOLIC PANEL Collected: 06/23/2018 Status: F Source: [place] 7:43 AM [facility] REPOSITORY TYPE CODE TESTS RESULT OUT OF REFERENCE UNITS RANGE LAB TP 6.3-8.0 g/dL Protein, Total 6.3 LAB ALB 3.9-4.9 g/dL Low Albumin 3.4 LAB CA 8.5-10.2 mg/dL Calcium, Total 9.2 LAB TBIL 0.2-1.3 mg/dL Bilirubin, Total 0.5 LAB ALKP 34-123 U/L Alkaline Phosphatase 70 LAB AST 13-35 U/L AST 17 LAB GLU 74-99 mg/dL Glucose 96 Result Comment: The [place] Diabetes Association (ADA) provides guidance for cutoff values for fasting glucose and random glucose. The ADA defines fasting as no caloric intake for at least 8 hours. Fas ting plasma glucose results between 100 to 125 mg/dL indicate increased risk for diabetes (prediabetes). Fasting plasma glucose results greater than or equal to 126 mg/dL meet the criteria for diagnosis of diabetes. In the absence of unequivocal hyperglycemia, results should be confirmed by repeat testing. In a patient with classic symptoms of hyperglycemia or hyperglycemic crisis, random plasma glucose results greater than or equal to 200 mg/dL meet the criteria for diagnosis of diabetes. Reference: Standards of Medical Care in Diabetes 2016, [place] Diabetes Association. Diabetes Care. 2016.39(Suppl 1). LAB BUN 7-21 mg/dL BUN 15 LAB CRET 0.58-0.96 mg/dL Creatinine 0.94 LAB NA 136-144 mmol/L Sodium 142 LAB K 3.7-5.1 mmol/L Potassium High 5.3 LAB CL 97-105 mmol/L Chloride 102 LAB CO2 22-30 mmol/L CO2 29 LAB AGAP 9-18 mmol/L Anion Gap 11 LAB ALT 7-38 U/L ALT 12 LAB GFRAA eGFR- Amer. >60 LAB GFRNAA . eGFR-All Other Races >60 Result Comment: eGFR (Estimated GFR) Units of measure: mL/min/1.73 meters squared eGFR is derived from the reexpressed MDRD Study equation using the following parameters: serum creatinine, age, gender and race. The creatinine assay has been calibrated to be traceable to IDMS. An eGFR <60 mL/min/1.73m2 for >3 months is consistent with chronic kidney disease. Refer to KDOQI guidelines for clinical interpretation. In patients with unstable renal function, e.g. those with acute kidney injury, the eGFR may not accurately reflect actual GFR. Performed By: #### CMP #### [facility] [address] [place], [place] [address] XR CHEST 1V FRONTAL Observed: 06/23/2018 Status: F Source: [facility] 5:55 AM [facility] REPOSITORY * * *Final Report* * * DATE OF EXAM: Jun 23 2018 5:55AM JIX [id number] - XR CHEST 1V FRONTAL PORT / PROCEDURE REASON: Post-operative / post-procedure assessment, asymptomatic * * * * Physician Interpretation * * * * EXAMINATION: CHEST RADIOGRAPH (PORTABLE SINGLE VIEW AP) Exam Date/Time: 06/23/2018 5:55 AM Clinical History: Post-operative / post-procedure assessment, asymptomatic, MQ: [id number] Comparison: 1 day prior RESULT: See impression. IMPRESSION: Lines, tubes, and devices: Stable curved mediastinal/pericardial drain. Lungs and pleura: Persistent small to medium-sized left pleural effusion and associated left basilar atelectasis/consolidations. Mild atelectasis is noted in the right base with trace right pleural effusion. No pneumothorax. Cardiomediastinal silhouette: Stable cardiomediastinal silhouette. Other: . Tobacco Stemmer: BIRGIT Transcribe Date/Time: Jun 23 2018 9:28A Dictated by : HEMA RANDALL MD This examination was interpreted and the report reviewed and electronically signed by: HEMA RANDALL MD on Jun 23 2018 9:29AM EST [id number] CBC Collected: 06/23/2018 Status: F Source: [place] 4:57 AM [facility] REPOSITORY TYPE CODE TESTS RESULT OUT OF REFERENCE UNITS RANGE LAB WBC 3.70-11.00 k/uL WBC High 15.40 LAB RBC 3.90-5.20 m/uL RBC High 5.95 LAB HGB 11.5-15.5 g/dL High Hemoglobin 18.9 LAB HCT 36.0-46.0 % High Hematocrit 58.7 LAB MCV 80.0-100.0 fL MCV 98.7 LAB MCH 26.0-34.0 pG MCH 31.8 LAB MCHC 30.5-36.0 g/dL MCHC 32.2 LAB RDWCV 11.5-15.0 % RDW-CV 13.7 LAB PLTCT 150-400 k/uL Platelet Count 153 LAB MPV 9.0-12.7 fL MPV 11.3 LAB ABSNUC <0.01 k/uL Absolute nRBC <0.01 Performed By: #### CBC, CMP #### [facility] [address] [place] [id number] COMP METABOLIC PANEL Collected: 06/23/2018 Status: F Source: [place] 4:57 AM [facility] REPOSITORY TYPE CODE TESTS RESULT OUT OF REFERENCE UNITS RANGE LAB TP 6.3-8.0 g/dL Protein, Total 7.0 LAB ALB 3.9-4.9 g/dL Low Albumin 3.3 LAB CA 8.5-10.2 mg/dL Calcium, Total 9.0 LAB TBIL 0.2-1.3 mg/dL Bilirubin, 0.4 Total Result Comment: Specimen is hemolyzed. Result may be adversely affected. LAB ALKP 34-123 U/L Alkaline Phosphatase 59 Result Comment: Results may be falsely decreased due to interference by hemolysis. Suggest reorder as clinically indicated. LAB AST 13-35 U/L High AST 65 Result Comment: Results may be falsely increased due to interference by hemolysis. Suggest reorder as clinically indicated. LAB GLU 74-99 mg/dL High Glucose 101 Result Comment: The [place] Diabetes Association (ADA) provides guidance for cutoff values for fasting glucose and random glucose. The ADA defines fasting as no caloric intake for at least 8 hours. Fas ting plasma glucose results between 100 to 125 mg/dL indicate increased risk for diabetes (prediabetes). Fasting plasma glucose results greater than or equal to 126 mg/dL meet the criteria for diagnosis of diabetes. In the absence of unequivocal hyperglycemia, results should be confirmed by repeat testing. In a patient with classic symptoms of hyperglycemia or hyperglycemic crisis, random plasma glucose results greater than or equal to 200 mg/dL meet the criteria for diagnosis of diabetes. Reference: Standards of Medical Care in Diabetes 2016, [place] Diabetes Association. Diabetes Care. 2016.39(Suppl 1). LAB BUN 7-21 mg/dL BUN 13 LAB CRET 0.58-0.96 mg/dL Creatinine Unable to assay. Specimen significantly hemolyzed. LAB NA 136-144 mmol/L Sodium 137 LAB K 3.7-5.1 mmol/L Potassium Unable to assay. Specimen significantly hemolyzed. LAB CL 97-105 mmol/L Chloride 101 LAB CO2 22-30 mmol/L CO2 25 LAB AGAP 9-18 mmol/L Anion Gap 11 LAB ALT 7-38 U/L ALT 17 Result Comment: Results may be falsely increased due to interference by hemolysis. Suggest reorder as clinically indicated. LAB GFRAA eGFR- Amer. Not calculated LAB GFRNAA . eGFR-All Other Races Not calculated Performed By: #### CBC, CMP #### [facility] [address] [place], [place] [address] CNCO Observed: 06/23/2018 Status: COMPLETED Source: [place] 12:00 [facility] REPOSITORY Letter Text Maykel Moran M.D. Thoracic and Cardiovascular Surgery / J4-1 Office: [phone] Appts: [phone] Toll Free: [phone]. [phone] June 29, 2018 George Latham MD [address] [place], [place] VIA In Basket Re: Cruz Jacobo CCF#: [id number] Dear Dr. Latham Your patient underwent open-heart surgery on June 22, 2018. A copy of the operative report is enclosed for your records. Best regards and thank you for allowing me to participate in the care of your patient. Sincerely, Maykel Moran M.D. /km Enclosure Cc: Tex Miller MD [address] [place] [address] VIA In Basket Maykel Moran Cardiac Surgery Hide copied text Hover for attribution information [place] [id number] [place] [facility] OPERATIVE REPORT DEPARTMENT OF THORACIC AND CARDIOVASCULAR SURGERY NAME: Cruz Jacobo [facility] #: [id number] AGE: [age] year old DATE: June 22, 2018 OPERATION START TIME:12:19 PM OPERATION END TIME: 12:55 PM Surgeon(s) and Director Learning And Development(s): Surgeon(s) and Role: * Maykel Moran - Primary * Jhoan Kidd - Fellow SURGEON: Maykel Moran M.D. SUPERINTENDENT CONTAINER TERMINAL: Jhoan Kidd MD SECOND MANAGER RESOURCE: Mally Morataya MD PREOPERATIVE DIAGNOSES: Pericardial effusion POSTOPERATIVE DIAGNOSIS: Same OPERATIONS: Subxiphoid pericardial window and biopsy ANESTHESIA: General endotracheal anesthesia. COMPLICATIONS: none ESTIMATED BLOOD LOSS: Minimal SPECIMENS:Pericardial fluid and pericardium DRAINS: Pericardial Víctor drain OPERATIVE INDICATIONS: Patient is a 57 year old yo female with a history of pericardial effusion refractory to medical therapy. An extensive discussion of risks and benefits were held with the patient who agreed to proceed. OPERATIVE FINDINGS: 600 cc effusion OPERATIVE PROCEDURE: Position: Supine Incision: Subxiphoid Conduct of the procedure: Incision was made and carried under the xiphoid. The pericardium was identified and grasped and a 2 cm patch excised. 600 cc of pericardial fluid was aspirated. The effusion was confirmed to be eradicated by SERGE. A Víctor drain was placed. The incision was closed in layers. Closure: Layered closure Condition on Transport: Stable Counts:Correct PRACTITIONER TASKS: The procedure was performed by the primary surgeon with assistance. Opening and closing were performed by the orthodontic technician assistant with indirect supervision with the primary surgeon immediately available. IMPLANTS: none This report was electronically generated and signed by the operating surgeon. Maykel Moran M.D. Letter Text Maykel Moran M.D. Thoracic and Cardiovascular Surgery / J4-1 Office: [phone] Appts: [phone] Toll Free: [phone]. [phone] June 29, 2018 Re: Cruz Jacobo F#: [id number] Dear Dr. Miller Your patient, Ms. Jacobo , underwent open heart surgery at the [facility]. A complete discharge summary accompanies this letter. If you should have any questions regarding this patient?s surgery, please do not hesitate to contact me. In order to keep you updated with the most current information on your patient, I would like to invite you to register for [facility]. If you have questions or need help registering, email or call [phone]. To maintain continuity of post-operative patient care, we would like to offer each of our patients a follow-up visit with their [facility] product marketing consultant at the thirty- day post-discharge jack. This visit will be in addition to the 5-7 day follow-up appointments we offer patients with our post-operative COPYIST clinical nurses. After the patient has been fully examined at their final follow-up visit, we will communicate any issues to you. Upon completion of the thirty-day appointment, we will then refer the patient back to you for future care and management. Thank you for the referral of your patient and for allowing us to participate in their care during their pre- and post-operative course! Sincerely, Maykel Moran MD, FACS CATE/nithya Butler (Home Day Care Provider) [facility] Cosigned by: Maykel Moran at 06/28/2018 10:36 AM Expand All Collapse All Hide copied text Department of Cardiothoracic Surgery Discharge Summary PATIENT NAME: Cruz Jacobo ADMISSION DATE: 06/22/2018 DISCHARGE DATE: 06/27/2018 Attending Physician/Surgeon: Maykel Moran Primary Service: Hvi Cts Team A Code Status: Not on file [facility] Primary Card Puncher: Noa 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 Cruz Jacobo is a 57 year old female who presents for consultation regarding chronic idiopathic pericardial effusion that is not resolving on dual therapy with colchicine and Ibuprofen for an extended periods who is now likely symptomatic with a large pericardial effusion that on review of the echo appears amenable to anterior drainage. Operations during Hospitalization: 06/22/2018 Pericardial Window Subxiphoid. Hospital Course: * How was the Reason for Hospitalization Addressed: Indication for Surgery: pericardial effusion Preop LVEF: 70% RVF: Moderate Cath: No significant coronary disease Cards: Noa EKG: NORMAL SINUS RHYTHM PMH/PSH: COPD, Fibromyalgia, HTN, HPL, pericardial effusion, smoker, urge incontinence, secondary polycythemia Surgery; 06/23/2018: Pericardial Window Subxiphoid. A/P: -pericardial drain to víctor; 30cc/24hrs-Colchicine stopped this fall by Dr. Latham when evaluated. Motrin was continued but with recent bleeding in stools which will by evaluated by local GI MD after recovered from pericardial window -COPD: albuterol, breo ellipta and spiriva; on RA -Constipation:lactulose, miralax and MOM. +BM -HTN: Norvasc BB and IV lasix -From [place], [place]. No needs. DC today, Cards and CTS OPD appt requested. Discharge Planning: Anticipated Discharge Date: Unknown Barriers to Discharge: Unknown, Other: removal of pericardial drain Care Management Discharge Needs: * What were the Active Issues: Treatment of COPD, removal of pericardial drain * Surgical Pathology/Microbiology: Cultures are pending at the time of discharge, no malignant cells seen on cytology * Hospital Course Complicated by: COPD * Extended Hospital Stay Due to: n/a * Specific Medication Changes: The patient's Norvasc was stopped and Metoprolol 12.5mg BID was started * Pain: Controlled * Surgical Incisions/Wounds: Subxyphoid incision is clean dry and intact * Patient Condition at Discharge: Improved * Disposition: Home/Self Care Problem List: Patient Active Hospital Problem List: Transition of care performed with sharing of clinical summary (06/23/2018) HTN (hypertension) (04/15/2015) Gastroesophageal reflux disease without esophagitis (04/15/2015) Pericardial effusion (10/22/2015) Chronic obstructive pulmonary disease (HCC) (04/15/2015) Secondary polycythemia (12/21/2017) Pleural effusion (06/23/2018) Constipation (06/23/2018) Mixed hyperlipidemia (04/15/2015) Malnutrition of moderate degree (HCC) (06/23/2018) Consults: n/a Procedures Performed and Major Radiology: Echo Information Provided to the Patient: Patient given copy of After Visit Summary which included activity instructions, diet instructions, wound care instructions, medication instructions and follow up appointment ALLERGIES ALLERGIES Allergen Reactions - Bee Sting Swelling, Shortness of Breath - Aleve [Naproxen] Hives Discharge Medications: Current Discharge Medication List START taking these medications metoprolol tartrate (short acting) (LOPRESSOR) 12.5 mg Take 12.5 mg by mouth every 12 hours. Qty: 30 tablet Refills: 0 Associated Diagnoses:Pericardial effusion polyethylene glycol 3350 (MIRALAX, GLYCOLAX) 17 g Take 17 g by mouth once daily. Qty: 30 Packet Refills: 0 Comments: BDT simethicone, chewable (MYLICON) 80 mg Take 80 mg by mouth four times daily as needed (gas). Qty: 25 tablet Refills: 0 Comments: BDT traMADol (ULTRAM) 50 mg Take 50 mg by mouth every 6 hours as needed for Pain. Qty: 28 tablet Refills: 0 Comments: BDT Associated Diagnoses:Postoperative pain CONTINUE these medications which have NOT CHANGED atorvastatin (LIPITOR) 10 mg Take 10 mg by mouth daily at bedtime. Qty: 90 tablet Refills: 1 baclofen (LIORESAL) 20 mg tablet take 1 tablet by mouth 2 to three times a day for muscle spasm Qty: 90 tablet Refills: 5 Associated Diagnoses:Fibromyalgia; Muscle cramps buPROPion HCl, smoking deter, 150 mg Tb12 take 1 tablet by mouth once daily for 2 weeks then take 1 tablet twice a day Qty: 60 tablet Refills: 5 Associated Diagnoses:Smoker gabapentin (NEURONTIN) 1,200 mg Take 1,200 mg by mouth daily at bedtime. Qty: 90 capsule Refills: 5 ibuprofen (MOTRIN) 800 mg tablet take 1 tablet by mouth every 8 hours with food if needed for pain Qty: 90 tablet Refills: 1 Associated Diagnoses:Low back pain, unspecified back pain laterality, unspecified chronicity, with sciatica presence unspecified omeprazole (PRILOSEC) 20 mg capsule take 1 tablet by mouth daily 1/2 HOUR BEFORE BREAKFAST Qty: 30 capsule Refills: 5 Associated Diagnoses:Gastroesophageal reflux disease with esophagitis oxybutynin ER (DITROPAN XL) 10 mg 24 hr tablet take 1 tablet by mouth once daily - TO REPLACE DETROL Qty: 90 tablet Refills: 1 Comments: Please let patient know medication had to be changed from Detrol due to insurance. PROAIR HFA 90 mcg/actuation inhaler inhale 2 puffs by mouth four times a day Qty: 8.5 g Refills: 0 rOPINIRole (REQUIP) 0.5 mg tablet take 2 tablets by mouth at bedtime Qty: 60 tablet Refills: 5 SPIRIVA WITH HANDIHALER 18 mcg inhalation capsule inhale contents of 1 capsule as directed once daily Qty: 30 capsule Refills: 3 Comments: Please call if not covered by insurance. Alternatives would include Tudorza or Incruse. Associated Diagnoses:Chronic obstructive pulmonary disease, unspecified COPD type (HCC) SYMBICORT 2 Puffs Inhale 2 Puffs as instructed twice daily. aspirin, enteric coated (ASPIRIN, ENTERIC COATED) 81 mg Take 81 mg by mouth once daily. Qty: 30 tablet Refills: 0 Cholecalciferol (Vitamin D3) 2,000 Units Take 2,000 Units by mouth twice daily. EPINEPHrine (EPIPEN) 0.3 mg Inject 0.3 mg intramuscularly as needed. Qty: 1 Each Refills: 1 STOP taking these medications amLODIPine (NORVASC) 5 mg tablet Comments: Reason for Stopping: benazepril (LOTENSIN) 20 mg Comments: Reason for Stopping: mupirocin (BACTROBAN) 1 application Comments: Reason for Stopping: Transitions of Care Critical Issues: Outpatient Management: * Are there important medication changes and/or outstanding issues that need to be addressed:The patient is unable to come back to [place] for a follow up in the Cardiac Surgery department. She will see her primary care provider in one week with an echo and Dr. Latham in 4 weeks with an echo : Future Appointments Date Time Provider Department Center 09/19/2018 10:30 AM [id number] [facility]RA[facility]IM [facility] 11/01/2018 9:45 AM [id number] RUIZ CAWSTR [facility] 11/01/2018 9:45 AM [id number] RUIZ CAWSTR [facility] 12/07/2018 2:00 PM [id number] TEX A FAMPWS [facility] 01/27/2019 1:20 PM [id number] MOORE) RAYA [facility] 01/27/2019 1:20 PM [id number] MOORE) [facility] Highest Readmission Risk Score: 14 The 30 day readmissions risk score is derived from an internally validated risk model which evaluates patient level characteristics, utilization history, medication orders and lab results up until the day of discharge. Patients with a score of 40 or above are considered highest risk for readmission. Specific patient level drivers will be listed at the bottom of the summary. This patient?s risk for 30-day readmission is determined using the following contributing drivers Pt variables contributing to increased readmission risk: 15 Most Recent BUN Result 14 Active Medication Orders 9 First Resulted Calcium During Admission 1 Insurance - Medicare 1 History of COPD 1 Active Anticoagulant Electronically SIGNED by Licensed Independent Practitioner: Judith Doty CNP H AUREUS PCR Collected: 06/22/2018 Status: F Source: [place] 11:05 PM [facility] REPOSITORY TYPE CODE TESTS RESULT OUT OF REFERENCE UNITS RANGE LAB [facility] Nasal S aureus Spec Source LAB [facility]RES Negative for MRSA MRSA by PCR. PCR LAB [facility] Negative for Staph Staphylococcus aureus PCR aureus by PCR. Performed By: #### SAPCR #### [facility] [address] [place], [place] [address] XR CHEST 1V FRONTAL Observed: 06/22/2018 Status: F Source: [place] 9:44 PM [facility] [place] REPOSITORY * * *Final Report* * * DATE OF EXAM: Jun 22 2018 9:44PM KARELY 5290 - XR CHEST 1V FRONTAL / PROCEDURE REASON: Pneumothorax * * * * Physician Interpretation * * * * EXAMINATION: CHEST RADIOGRAPH (PORTABLE SINGLE VIEW AP) Exam Date/Time: 06/22/2018 9:44 PM Clinical History: Pneumothorax, MQ: XCPMC_5 Comparison: 1336, same day RESULT: See impression. IMPRESSION: Lines, tubes, and devices: A presumed pericardial drain is in place. Lungs and pleura: There are upper lobe predominant pulmonary emphysematous changes. There has been increase in size of a small left pleural effusion and probable development of a small right pleural effusion. There are bibasilar airspace opacities most commonly secondary to nonspecific atelectasis or pneumonia/aspiration. No pneumothorax is identified. Cardiomediastinal silhouette: Suspect slight interval increase in the cardiothoracic ratio. Tobacco Stemmer: PSCB Transcribe Date/Time: Jun 22 2018 10:27P Dictated by : CHIVO MAYNARD MD This examination was interpreted and the report reviewed and electronically signed by: CHIVO MAYNARD MD on Jun 22 2018 10:30PM EST [id number] NURSING PROG Observed: 06/22/2018 Status: COMPLETED Source: [place] 9:25 PM [facility] REPOSITORY HNO ID: [id number] Author: Trina SchofieldRn) ARIA Graham Service: (none) Author Type: Registered Nurse Type: Nursing Progress Note Filed: 06/22/2018 11:50 PM Note Text: Nursing Progress Note Patient Name: Cruz Jacobo [address] Pt. Placed on 6L NR per respiratory. Pt. c/o of worsening chest pain. O2 sat at 95. BP 117/75, HR 90. CMET initiated. CTS notified via alpha text page and at bedside. This note was completed by: Trina Graham RN PROGRESS Observed: 06/22/2018 Status: COMPLETED Source: [place] 9:22 PM [facility] REPOSITORY HNO ID: [id number] Author: Willie Roper (Drainman) SHOBHA Kaufman Service: Respiratory Therapy Author Type: Respiratory Therapist Type: Progress Notes Filed: 06/22/2018 11:01 PM Note Text: RESPIRATORY THERAPY PROGRESS NOTE SERVICE DATE: 06/22/2018 SERVICE TIME: 21:22 CMET activated for complaints of chest pain and increase in oxygen requirements. On arrival, pt on NRB at 15L, SpO2 98%, HR 90, RR 30 no noted labored breathing just c/o of chest pain. Pt noted to have COPD history. Placed pt on 6 L NC with sats 92-94%. Pt re oriented to DOCTOR OF PODIATRIC MEDICINE pain pump. CXR ordered. Will continue to monitor respiratory status. 06/22/182121 RT Rapid Response/CMET Is this a Rapid Response/CMET team response? Yes $ CPR/Code Blue No $ CPR/Code [place] No RT medication given? No Is patient on O2? Yes Was patient intubated? No ABGs drawn No O2 Resp 30 SpO2 98 % Liters 15 $Oximetry $Performed $Oxygen Therapy per protocol $Performed O2 Device Non-rebreather mask SIGNATURE: Willie Kaufman DREDGE LEVER OPERATOR PATIENT NAME: Cruz Jacobo DATE: June 22, 2018 TIME: 10:56 PM PAGER/CONTACT #: [id number] Observed: 06/22/2018 Status: F Source: [place] 8:45 PM [facility] REPOSITORY NAME : CRUZ JACOBO PID : [id number] : 1960 Gender : Female Race : ORD : Procedure Date : Jun 22 2018 20:45:24 Edit Date : Jun 23 2018 09:20:07 Diagnosis:NORMAL SINUS RHYTHM INCOMPLETE RIGHT BUNDLE BRANCH BLOCK RIGHT VENTRICULAR HYPERTROPHY WITH REPOLARIZATION ABNORMALITY ANTEROSEPTAL MYOCARDIAL INFARCTION , AGE UNDETERMINED ABNORMAL ECG Confirmed by MD BRUCE, PhD, LEONOR ([id number]) on 06/23/2018 9:20:06 AM Ventricular Rate : 93 BPM Atrial Rate : 93 BPM P-R Interval : 160 ms QRS Duration : 96 ms Q-T Interval : 372 ms QTC Calculation(Bezet) : 462 ms P [place] : 75 degrees R [place] : 96 degrees T [place] : 75 degrees Test Reason : Location : 461 : [id number] Overread By : MD BRUCE, PhD,LEONOR Edited By : MD BRUCE, PhD,LEONOR Referred By : , Acquired by : [id number], NURSING PROG Observed: 06/22/2018 Status: COMPLETED Source: [place] 5:43 PM [facility] REPOSITORY HNO ID: [id number] Author: Azalea (Rn) ARIA Donahue Service: (none) Author Type: Registered Nurse Type: Nursing Progress Note Filed: 06/22/2018 5:45 PM Note Text: Nursing Progress Note Patient Name: Cruz Jacobo Patient Location: [address]6--19 Transfer Note: Patient transferred into room/unit J63-19 in stable condition. Actions taken: Report given by ARIA Miller J33. Pt and family oriented to room/unit, falls plan initiated, skin checked, discussed POC with Virgen Anthony NP. Will continue to monitor. This note was completed by: Azalea Donahue RN CYTOLOGY Observed: 06/22/2018 Status: F Source: [place] 3:27 PM [facility] RE[facility] Specimen originated from [facility] Specimen #: [id number] Submitting Physician: MAYKEL MORAN MD SPECIMEN SUBMITTED A: PERICARDIAL FLUID (THINPREP AND CELL BLOCK) FINAL DIAGNOSIS A. PERICARDIAL FLUID (THINPREP AND CELL BLOCK) Negative for malignant cells. Randy Bray M.D. Ph.D. (Electronic Signature) GROSS DESCRIPTION 5cc clear yellow fluid STAINS A: PERICARDIAL FLUID (THINPREP AND CELL BLOCK) THIN PREP Non-Patient Support Partner, CELL BLOCK, H&E, Initial Date of Report: 06/23/2018 Date of Procedure: 06/22/2018 Date of Receipt: 06/22/2018 Submitted by: MAYKEL MORAN MD Location: J63 Diagnostic interpretation performed at [facility], [address], [facility] [address]. XR CHEST 1V FRONTAL Observed: 06/22/2018 Status: F Source: [facility] 1:53 PM [facility] RE[facility]ORY * * *Final Report* * * DATE OF EXAM: Jun 22 2018 1:53PM JIX 5376 - XR CHEST 1V FRONTAL PORT / PROCEDURE REASON: Post-operative / post-procedure assessment, asymptomatic * * * * Physician Interpretation * * * * EXAMINATION: CHEST RADIOGRAPH (PORTABLE SINGLE VIEW AP) Exam Date/Time: 06/22/2018 1:53 PM Clinical History: Post-operative / post-procedure assessment, asymptomatic, MQ: XCPMC_5 Comparison: 1 day prior RESULT: See impression. IMPRESSION: Lines, tubes, and devices: There has been interval placement of a pericardial drain. Lungs and pleura: Nonspecific opacities in mid to lower lungs may be related to venous congestion and atelectasis. There is a trace to small left pleural effusion. No pneumothorax. Cardiomediastinal silhouette: Cardiomediastinal silhouette is at the upper limits of normal size. Central pulmonary arteries are prominent. Other: . Tobacco Stemmer: PSCB Transcribe Date/Time: Jun 22 2018 2:16P Dictated by : SHARON CRUZ MD This examination was interpreted and the report reviewed and electronically signed by: SHARON CRUZ MD on Jun 22 2018 2:17PM EST [id number] OP NOT Observed: 06/22/2018 Status: COMPLETED Source: [place] 12:47 PM [facility] REPOSITORY HNO ID: [id number] Author: Jhoan Kidd Service: Thoracic Surgery Author Type: Physician Type: Brief Op Note Filed: 06/22/2018 12:51 PM Note Text: OPERATIVE/PROCEDURE REPORT LOG ID: [id number] SURGERY/PROCEDURE DATE: 06/22/2018 INCISION/PROCEDURE START TIME: 12:19 PM INCISION CLOSE/PROCEDURE END TIME: 12:50 PM SURGEON(S)/PROCEDURALIST(S) AND MANAGER RESOURCE(S): Surgeon(s) and Role: * Maykel Moran - Primary * Jhoan Kidd - Fellow Registered Nurse Director Construction Services: Mally (Rn) ARIA Morataya SURGERY/PROCEDURE(S): Pericardial Window Subxiphoid. ANESTHESIA: General SURGERY/PROCEDURE DETAILS: Subxiphoid incision. 500 mls of clear fluids drained. Samples sent for Cytology / Microbiology. Pericardial Tissue samples sent as well. Víctor 19 inserted connected to bulb suction. Routine closure with LA for skin. PRE-OP/PRE-PROCEDURE DIAGNOSIS: Pericardial Effusion POST-OP/POST-PROCEDURE DIAGNOSIS: * No post-op diagnosis entered * same ESTIMATED BLOOD LOSS: 0 ml SPECIMENS: Specimen ID Type Site Comments Sent To 1-Pericardial Fluid Fluid Pericardial Fluid Prepared by /, Taken out by Microbiology 2-Pericardium Tissue Pericardium Bx Prepared by /SS, Taken out by Microbiology 3-Pericardial Fluid Fluid Pericardial Fluid Prepared by /SS, Taken out by Cytology IMPLANTABLE DEVICES: None DRAINS: Víctor 19 x1 Pericardial connected to bulb suction COMPLICATIONS: None PARTICIPATION IN SURGERY/PROCEDURE: The primary surgeon/proceduralist performed the procedure with assistance. SIGNATURE: Jhoan Nieto MD PATIENT NAME: Cruz Jacobo DATE: June 22, 2018 TIME: 12:48 PM PAGER/CONTACT #: Observed: 06/22/2018 Status: F Source: [place] ANAEROBE CULTURE 12:35 PM [facility] REPOSITORY Culture Result - Negative for anaerobes. Performed By: #### ANACUL #### [facility] [place] [address] Observed: 06/22/2018 Status: F Source: [place] ANAEROBE CULTURE 12:35 PM [facility] REPOSITORY Culture Result - Negative for anaerobes. Performed By: #### ANACUL #### [facility] [address] [place] [address] Observed: 06/22/2018 Status: F Source: [place] CYTOMEGALOVIRUS CULTURE 12:35 PM [facility] REPOSITORY Culture Result - Testing performed at [facility]. Refer to scanned documents tab in EPIC for final report. Performed By: #### VCMV #### [place] [id number] [place] [address] Observed: 06/22/2018 Status: F Source: [place] CYTOMEGALOVIRUS CULTURE 12:35 PM [facility] REPOSITORY Culture Result - Testing performed at [facility]. Refer to scanned documents tab in [facility] for final report. Performed By: #### VCMV #### [place] [id number] Observed: 06/22/2018 Status: F Source: [facility] BODY FLUID CULT/STN 12:35 PM [facility] REPOSITORY Sp. Request/Comment: - Specimen collected in surgery. Specimen received in sterile container. Smear Result - No organisms seen No Polymorphonuclear Leukocytes Culture Result - No growth 5 days Performed By: #### BFCUL #### [place] [address] Observed: 06/22/2018 Status: F Source: [place] TISSUE CULT / STAIN 12:35 PM [facility] REPOSITORY Sp. Request/Comment: - Specimen collected in surgery. Specimen received in sterile container. Smear Result - No organisms seen No Polymorphonuclear Leukocytes Culture Result - No growth 5 days Performed By: #### TISCUL #### [place] [address] OPERATIVE NO Observed: 06/22/2018 Status: COMPLETED Source: [place] 11:45 AM [facility] REPOSITORY HNO ID: [id number] Author: Maykel Moran Service: Cardiac Surgery Author Type: Physician Type: Operative Report Filed: 06/28/2018 9:21 PM Note Text: [place] [address] [place] [facility] OPERATIVE REPORT DEPARTMENT OF THORACIC AND CARDIOVASCULAR SURGERY NAME: Cruz Jacobo [facility] #: [id number] AGE: [age] year old DATE: June 22, 2018 OPERATION START TIME:12:19 PM OPERATION END TIME: 12:55 PM Surgeon(s) and Director Learning And Development(s): Surgeon(s) and Role: * Maykel Moran - Primary * Jhoan Kidd - Fellow SURGEON: Maykel Moran M.D. SUPERINTENDENT CONTAINER TERMINAL: Jhoan Kidd MD SECOND MANAGER RESOURCE: Mally Morataya MD PREOPERATIVE DIAGNOSES: Pericardial effusion POSTOPERATIVE DIAGNOSIS: Same OPERATIONS: Subxiphoid pericardial window and biopsy ANESTHESIA: General endotracheal anesthesia. COMPLICATIONS: none ESTIMATED BLOOD LOSS: Minimal SPECIMENS:Pericardial fluid and pericardium DRAINS: Pericardial Víctor drain OPERATIVE INDICATIONS: Patient is a 57 year old yo female with a history of pericardial effusion refractory to medical therapy. An extensive discussion of risks and benefits were held with the patient who agreed to proceed. OPERATIVE FINDINGS: 600 cc effusion OPERATIVE PROCEDURE: Position: Supine Incision: Subxiphoid Conduct of the procedure: Incision was made and carried under the xiphoid. The pericardium was identified and grasped and a 2 cm patch excised. 600 cc of pericardial fluid was aspirated. The effusion was confirmed to be eradicated by SERGE. A Víctor drain was placed. The incision was closed in layers. Closure: Layered closure Condition on Transport: Stable Counts:Correct PRACTITIONER TASKS: The procedure was performed by the primary surgeon with assistance. Opening and closing were performed by the orthodontic technician assistant with indirect supervision with the primary surgeon immediately available. IMPLANTS: none This report was electronically generated and signed by the operating surgeon. Maykel Moran M.D. NURSING PROG Observed: 06/22/2018 Status: COMPLETED Source: [place] 8:45 AM [facility] REPOSITORY HNO ID: [id number] Author: Trina Graham RN Service: (none) Author Type: Registered Nurse Type: Nursing Progress Note Filed: 06/23/2018 4:14 AM Note Text: Nursing Progress Note Patient Name: Cruz Jacobo Patient Location: [facility] 019/J6-3-19 Event(s) / Intervention Note: The patient complained of the following problems: chest pain. The time of the event occurred at: 2039. The following intervention(s) were initiated: [place] [address] and EKG obtained. After the initiated interventions, the following observation(s) were made: nothing further noted. Will continue to observe and check with patient. This note was completed by: Trina Graham RN PT ED Observed: 06/22/2018 Status: COMPLETED Source: [place] 8:16 AM [facility] REPOSITORY HNO ID: [id number] Author: Angelica SchofieldRn) ARIA Way Service: Nursing Author Type: Registered Nurse Type: Patient Education Filed: 06/22/2018 8:16 AM Note Text: PRE OP LEARNING ASSESSMENT PROCEDURE/SURGERY: SURGERY: Heart READINESS TO LEARN COGNITIVE ABILITY: Alert and oriented MOTIVATION TO LEARN: Interested FAMILY SUPPORT: Moderate - Family present but overwhelmed PATIENT LEARNS BEST BY: Verbal Instruction FACTORS AFFECTING LEARNING: Emotional Factors: Anxious PHYSICAL LIMITATIONS AFFECTING LEARNING: None Electronically Signed By: Angelica Way RN In Department: [id number] HOSP Observed: 06/17/2018 Status: COMPLETED Source: [place] 12:00 AM [facility] REPOSITORY Patient:Cruz Jacobo MRN: <[id number]> Height:5' 4(1.626 m) Weight:151 lb (68.493 kg) Outpatient Medications as of 06/22/18: amLODIPine (NORVASC) 5 mg tablet aspirin, enteric coated (ADULT LOW DOSE ASPIRIN) 81 mg EC tablet atorvastatin (LIPITOR) 10 mg tablet baclofen (LIORESAL) 20 mg tablet benazepril (LOTENSIN) 20 mg tablet buPROPion HCl, smoking deter, 150 mg Tb12 Cholecalciferol, Vitamin D3, 2,000 unit cap EPINEPHrine (EPIPEN) 0.3 mg/0.3 mL auto-injector gabapentin (NEURONTIN) 400 mg capsule ibuprofen (MOTRIN) 800 mg tablet mupirocin (BACTROBAN) 2 % ointment omeprazole (PRILOSEC) 20 mg capsule oxybutynin ER (DITROPAN XL) 10 mg 24 hr tablet PROAIR HFA 90 mcg/actuation inhaler rOPINIRole (REQUIP) 0.5 mg tablet SPIRIVA WITH HANDIHALER 18 mcg inhalation capsule SYMBICORT 160-4.5 mcg/actuation inhaler Admission/Clinic Administered Medications as of 06/22/18: Patient has no admission medications. Problem List: Seasonal allergies [J30.2] Routine gynecological examination [Z01.419] Urge incontinence [N39.41] Insomnia [G47.00] Vitamin D deficiency [E55.9] Smoker [F17.200] Lipoma of buttock [D17.1] Fibromyalgia [M79.7] Essential hypertension [I10] Chronic obstructive pulmonary disease (HCC) [J44.9] Mixed hyperlipidemia [E78.2] Gastroesophageal reflux disease without esophagitis [K21.9] Low back pain [M54.5] Arthritis of both knees [M17.0] Pericardial effusion [I31.3] Carpal tunnel syndrome of left wrist [G56.02] Obesity (BMI 30.0-34.9) [E66.9] Current use of proton pump inhibitor [Z79.899] Lumbar canal stenosis [M48.061] Lumbar foraminal stenosis [M99.83] Lumbar facet arthropathy [M47.816] CHF (congestive heart failure) (HCC) [I50.9] YEN positive [R76.8] Medicare annual wellness visit, subsequent [Z00.00] Well adult exam [Z00.00] Screening for colon cancer [Z12.11] Encounter for screening mammogram for breast cancer [Z12.31] Elevated hemoglobin (HCC) [D58.2] Secondary polycythemia [D75.1] Wound infection, posttraumatic [T14.8XXA, L08.9] Heme positive stool [R19.5] Pre-op testing [Z01.818] Discharge planning issues [Z02.9] Allergies: Bee Sting Aleve [Naproxen] Date Verified: 06/22/18 Lab Values Lab Value Units Date High Low POTA* 4.1 mmol/L 06/06/2018 5.1 3.7 MARLA* 51.2 % 06/06/2018 46.0 36.0 Progress Notes ([facility]): Dennise Bryan 06/10/2018 9:[address] Latham spoke to Dr. Keating regarding colonoscopy, Dr. Keating feels it is not necessary. Progress Notes ([facility]): Carmen Lee APRN.CNP 06/10/2018 8:39 AM Signed Noted that Pt had a positive stool hemoccult 05/29/2018. Pt endorsed rectal bleeding on 05/28/2018. Spoke with Dr Moran who requested Pt have a GI work-up prior to OHS. Pt seen 06/09/[address] Rishabh Ruead. Would like to proceed with UGI and colonoscopy but needs cardiac clearance for the GI procedures. Dr [place] so I reached out to Dr Latham for cardiology clearance. Carmen Lee APRN.CNP [phone]. PROGRESS Observed: 06/10/2018 Status: COMPLETED Source: [place] 9:51 AM [facility] REPOSITORY HNO ID: [id number] Author: Dennise Bryan Service: (none) Author Type: (none) Type: Progress Notes Filed: 06/10/2018 9:53 AM Note Text: Dr. Latham spoke to Dr. Keating regarding colonoscopy, Dr. Keating feels it is not necessary. PROGRESS Observed: 06/10/2018 Status: COMPLETED Source: [place] 8:34 AM [facility] REPOSITORY HNO ID: [id number] Author: Carmen Lee Service: (none) Author Type: Nurse Practitioner Type: Progress Notes Filed: 06/10/2018 8:39 AM Note Text: Noted that Pt had a positive stool hemoccult 05/29/2018. Pt endorsed rectal bleeding on 05/28/2018. Spoke with Dr Moran who requested Pt have a GI work-up prior to OHS. Pt seen 06/09/[address] Rishabh Rueda. Would like to proceed with UGI and colonoscopy but needs cardiac clearance for the GI procedures. Dr Moran is out [place] the country so I reached out to Dr Latham for cardiology clearance. Carmen Lee APRN.[facility] [phone]. HOSP Observed: 06/10/2018 Status: COMPLETED Source: [place] 12:00 AM [facility] REPOSITORY Patient Update (JULIANNE) CRUZ JACOBO ([id number]) 1960 F Date Time Provider Department 06/10/18 CARMEN LEE During your visit today, we recorded the following information about you: Carmen Lee APRN.CNP 06/10/2018 8:39 AM Signed Noted that Pt had a positive stool hemoccult 05/29/2018. Pt endorsed rectal bleeding on 05/28/2018. Spoke with Dr Moran who requested Pt have a GI work-up prior to OHS. Pt seen 06/09/[address] Rishabh Rueda. Would like to proceed with UGI and colonoscopy but needs cardiac clearance for the GI procedures. Dr Moran [place] so I reached out to Dr Latham for cardiology clearance. Carmen Sha, ORTHODONTIC ASSISTANT.PRECINCT I POLICE SERGEANT [phone]. Allergies As of Date: 06/10/2018 Noted Allergy Reaction BEE STING 05/09/2013 7 - Swelling 12 - Shortness of Breath ALEVE (NAPROXEN) 05/09/2013 4 - Hives Date Reviewed: 06/09/2018 Reviewed by: Mar (Stuart) Saida - Fully Assessed Prescriptions as of 06/10/2018 Sig: AMLODIPINE 5 MG TABLET take 1 tablet by mouth once d* ASPIRIN 81 MG TABLET,DELAYED * Take 1 tablet by mouth once d* ATORVASTATIN 10 MG TABLET Take 1 tablet by mouth daily * BACLOFEN 20 MG TABLET take 1 tablet by mouth 2 to t* BENAZEPRIL 20 MG TABLET Take 1 tablet by mouth once d* BUPROPION HCL 150 MG TABLET,1* take 1 tablet by mouth once d* CHOLECALCIFEROL (VITAMIN D3) * Take 1 capsule by mouth twice* EPINEPHRINE 0.3 MG/0.3 ML INJ* Inject 0.3 mL intramuscularly* GABAPENTIN 400 MG CAPSULE Take 3 capsules by mouth zahra* IBUPROFEN 800 MG TABLET take 1 tablet by mouth every * MUPIROCIN 2 % TOPICAL OINTMENT Apply 1 application to affect* OMEPRAZOLE 20 MG CAPSULE,DIONE* take 1 tablet by mouth daily * OXYBUTYNIN CHLORIDE ER 10 MG * take 1 tablet by mouth once d* PROAIR HFA 90 MCG/ACTUATION A* inhale 2 puffs by mouth four * ROPINIROLE 0.5 MG TABLET take 2 tablets by mouth at be* SPIRIVA WITH HANDIHALER 18 MC* inhale contents of 1 capsule * SYMBICORT 160 MCG-4.5 MCG/ACT* Inhale 2 Puffs as instructed * Problem List As Of Date 06/10/2018 Noted Resolved Seasonal allergies [J30.2] Routine gynecological examination [Z01.419] More... Urge incontinence [N39.41] INVALID FOR* Insomnia [G47.00] INVALID FOR* Vitamin D deficiency [E55.9] INVALID FOR* Smoker [F17.200] INVALID FOR* More... Lipoma of buttock [D17.1] INVALID FOR* More... More... Fibromyalgia [M79.7] INVALID FOR* Essential hypertension [I10] INVALID FOR* Chronic obstructive pulmonary disease (HCC) [J4*INVALID FOR* More... Mixed hyperlipidemia [E78.2] INVALID FOR* Gastroesophageal reflux disease without esophag*INVALID FOR* Low back pain [M54.5] INVALID FOR* More... Arthritis of both knees [M17.0] INVALID FOR* More... Pericardial effusion [I31.3] INVALID FOR* More... Carpal tunnel syndrome of left wrist [G56.02] INVALID FOR* More... Obesity (BMI 35.0-39.9 without comorbidity) [E6*INVALID FOR*01/12/2017 Obesity (BMI 30.0-34.9) [E66.9] INVALID FOR* More... Current use of proton pump inhibitor [Z79.899] INVALID FOR* More... Lumbar canal stenosis [M48.061] INVALID FOR* More... Lumbar foraminal stenosis [M99.83] INVALID FOR* Lumbar facet arthropathy (HCC) [M47.816] INVALID FOR* CHF (congestive heart failure) (HCC) [I50.9] INVALID FOR* More... YEN positive [R76.8] INVALID FOR* More... Medicare annual wellness visit, subsequent [Z00*INVALID FOR* More... Well adult exam [Z00.00] INVALID FOR* More... Screening for colon cancer [Z12.11] INVALID FOR* Encounter for screening mammogram for breast ca*INVALID FOR* Elevated hemoglobin (HCC) [D58.2] INVALID FOR* Secondary polycythemia [D75.1] INVALID FOR* More... Wound infection, posttraumatic [T14.8XXA, L08.9]INVALID FOR* More... Heme positive stool [R19.5] INVALID FOR* Pre-op testing [Z01.818] INVALID FOR* More... Discharge planning issues [Z02.9] INVALID FOR* More... Encounter Status:Closed by CARMEN MARLEY CNP on 06/10/18 HOSP Observed: 06/10/2018 Status: COMPLETED Source: [place] 12:00 AM [facility] REPOSITORY Patient Update (TATO) CRUZ JACOBO ([id number]) 1960 F Date Time Provider Department 06/10/18 GEORGE LATHAM During your visit today, we recorded the following information about you: Dennise Bryan 06/10/2018 9:[address] Latham spoke to Dr. Keating regarding colonoscopy, Dr. Keating feels it is not necessary. Allergies As of Date: 06/10/2018 Noted Allergy Reaction BEE STING 05/09/2013 7 - Swelling 12 - Shortness of Breath ALEVE (NAPROXEN) 05/09/2013 4 - Hives Date Reviewed: 06/09/2018 Reviewed by: Mar Palacios (Pa) - Fully Assessed Prescriptions as of 06/10/2018 Sig: AMLODIPINE 5 MG TABLET take 1 tablet by mouth once d* ASPIRIN 81 MG TABLET,DELAYED * Take 1 tablet by mouth once d* ATORVASTATIN 10 MG TABLET Take 1 tablet by mouth daily * BACLOFEN 20 MG TABLET take 1 tablet by mouth 2 to t* BENAZEPRIL 20 MG TABLET Take 1 tablet by mouth once d* BUPROPION HCL 150 MG TABLET,1* take 1 tablet by mouth once d* CHOLECALCIFEROL (VITAMIN D3) * Take 1 capsule by mouth twice* EPINEPHRINE 0.3 MG/0.3 ML INJ* Inject 0.3 mL intramuscularly* GABAPENTIN 400 MG CAPSULE Take 3 capsules by mouth zahra* IBUPROFEN 800 MG TABLET take 1 tablet by mouth every * MUPIROCIN 2 % TOPICAL OINTMENT Apply 1 application to affect* OMEPRAZOLE 20 MG CAPSULE,DIONE* take 1 tablet by mouth daily * OXYBUTYNIN CHLORIDE ER 10 MG * take 1 tablet by mouth once d* PROAIR HFA 90 MCG/ACTUATION A* inhale 2 puffs by mouth four * ROPINIROLE 0.5 MG TABLET take 2 tablets by mouth at be* SPIRIVA WITH HANDIHALER 18 MC* inhale contents of 1 capsule * SYMBICORT 160 MCG-4.5 MCG/ACT* Inhale 2 Puffs as instructed * Problem List As Of Date 06/10/2018 Noted Resolved Seasonal allergies [J30.2] Routine gynecological examination [Z01.419] More... Urge incontinence [N39.41] INVALID FOR* Insomnia [G47.00] INVALID FOR* Vitamin D deficiency [E55.9] INVALID FOR* Smoker [F17.200] INVALID FOR* More... Lipoma of buttock [D17.1] INVALID FOR* More... More... Fibromyalgia [M79.7] INVALID FOR* Essential hypertension [I10] INVALID FOR* Chronic obstructive pulmonary disease (HCC) [J4*INVALID FOR* More... Mixed hyperlipidemia [E78.2] INVALID FOR* Gastroesophageal reflux disease without esophag*INVALID FOR* Low back pain [M54.5] INVALID FOR* More... Arthritis of both knees [M17.0] INVALID FOR* More... Pericardial effusion [I31.3] INVALID FOR* More... Carpal tunnel syndrome of left wrist [G56.02] INVALID FOR* More... Obesity (BMI 35.0-39.9 without comorbidity) [E6*INVALID FOR*01/12/2017 Obesity (BMI 30.0-34.9) [E66.9] INVALID FOR* More... Current use of proton pump inhibitor [Z79.899] INVALID FOR* More... Lumbar canal stenosis [M48.061] INVALID FOR* More... Lumbar foraminal stenosis [M99.83] INVALID FOR* Lumbar facet arthropathy (HCC) [M47.816] INVALID FOR* CHF (congestive heart failure) (HCC) [I50.9] INVALID FOR* More... YEN positive [R76.8] INVALID FOR* More... Medicare annual wellness visit, subsequent [Z00*INVALID FOR* More... Well adult exam [Z00.00] INVALID FOR* More... Screening for colon cancer [Z12.11] INVALID FOR* Encounter for screening mammogram for breast ca*INVALID FOR* Elevated hemoglobin (HCC) [D58.2] INVALID FOR* Secondary polycythemia [D75.1] INVALID FOR* More... Wound infection, posttraumatic [T14.8XXA, L08.9]INVALID FOR* More... Heme positive stool [R19.5] INVALID FOR* Pre-op testing [Z01.818] INVALID FOR* More... Discharge planning issues [Z02.9] INVALID FOR* More... Encounter Status:Closed by DENNISE BRYAN on 06/10/18 PROGRESS Observed: 06/09/2018 Status: COMPLETED Source: [place] 1:14 PM [facility] REPOSITORY HNO ID: [id number] Author: Veronica Castañeda Service: (none) Author Type: Physician Type: Progress Notes Filed: 06/10/2018 12:39 PM Note Text: HISTORY AND PHYSICAL Cruz Jacobo 1960 REFERRING PHYSICIAN: Tex Miller MD CHIEF COMPLAINT: Consult (Heme post stool ) HPI: The patient is a 57 year old female referred for endoscopy. Cruz notes that for several months she has been experiencing intermittent diarrhea and looser stools than usual. She notes this is worse at night and has had some stool leakage requiring her to wear a pad at night. She notes at one point she saw something that looked like a worm and became concerned. States around that time she also noted some visible bright red blood in stool. Patient also noted a long-standing history of significant acid reflux, takes medication for this but still has some breakthrough symptoms. She smokes cigarettes, unable to determine exactly how many daily as she rolls her own but roughly the equivalent of two packs. She had made her physician aware of the above complaints and had stool studies ordered. Hemoccult testing as well as fecal leukocytes were positive. Stool cultures for cryptosporidium and giardia as well as testing for H. Pylori were negative. Patient is actually scheduled to undergo open heart surgery next Wednesday. She was referred to our office to address concern for GI bleed due to the heme positive stool prior to her cardiac surgery. Cruz has not undergone prior endoscopy. The patient is being seen by me today at the request of Dr. Miller and Dr. Moran for my opinion and advice regarding heme positive stool. 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 Ruiz, on colchicine - Routine gynecological examination Dr. Arreola - Seasonal allergies - Smoker 01/25/2014 - Substance abuse ([facility]) - Urge incontinence 06/22/2013 - Vitamin D deficiency 01/25/2014 - Wound infection, posttraumatic 03/2018 hit right jurado on car door PAST SURGICAL HISTORY Procedure Laterality Date - FECAL OCCULT BLOOD TEST 12/09/2017 negative - STRESS TEST 08/28/2014 NL - HERLINDA W/WO REMOVAL TUBE OVARY HERLINDA-BSO - TONSILLECTOMY HX - [facility] DELIVERY SCHEDULING ORDER 2002 Current Outpatient Prescriptions: amLODIPine (NORVASC) 5 mg tablet take 1 tablet by mouth once daily aspirin, enteric coated (ADULT LOW DOSE ASPIRIN) 81 mg EC tablet Take 1 tablet by mouth once daily. atorvastatin (LIPITOR) 10 mg tablet Take 1 tablet by mouth daily at bedtime. baclofen (LIORESAL) 20 mg tablet take 1 tablet by mouth 2 to three times a day for muscle spasm benazepril (LOTENSIN) 20 mg tablet Take 1 tablet by mouth once daily. buPROPion HCl, smoking deter, 150 mg Tb12 take 1 tablet by mouth once daily for 2 weeks then take 1 tablet twice a day Cholecalciferol, Vitamin D3, 2,000 unit cap Take 1 capsule by mouth twice daily. EPINEPHrine (EPIPEN) 0.3 mg/0.3 mL auto-injector Inject 0.3 mL intramuscularly as needed. gabapentin (NEURONTIN) 400 mg capsule Take 3 capsules by mouth daily at bedtime for 180 days. ibuprofen (MOTRIN) 800 mg tablet take 1 tablet by mouth every 8 hours with food if needed for pain mupirocin (BACTROBAN) 2 % ointment Apply 1 application to affected area twice daily. omeprazole (PRILOSEC) 20 mg capsule take 1 tablet by mouth daily 1/2 HOUR BEFORE BREAKFAST oxybutynin ER (DITROPAN XL) 10 mg 24 hr tablet take 1 tablet by mouth once daily - TO REPLACE DETROL PROAIR HFA 90 mcg/actuation inhaler inhale 2 puffs by mouth four times a day rOPINIRole (REQUIP) 0.5 mg tablet take 2 tablets by mouth at bedtime SPIRIVA WITH HANDIHALER 18 mcg inhalation capsule inhale contents of 1 capsule as directed once daily SYMBICORT 160-4.5 mcg/actuation inhaler Inhale 2 Puffs as instructed twice daily. No current facility-administered medications for this visit. ALLERGIES: Bee Sting; Aleve [Naproxen] PERSONAL HISTORY: Social History Marital status: Spouse name: Years of education: Number of children: Occupational History Occupation Employer Comment [employer], last done 2011 Social History Main Topics Smoking status: Current Every Day Smoker Packs/day: 2.00 Years: 37.00 Start date: 1976 Smokeless tobacco: Never Used Alcohol use: No Comment: None since 2011, TO 02/2016. Drug use: No Social History Narrative Tried Chantix and Nicotine patch. First morning cigarette right after going to the bathroom. Hardest cigarette to give up- morning cigarette. Once get coffee in the morning, it is one after another. Quit during hospitalization with delivery of baby for 1 week. Smoked during . FAMILY HISTORY: FAMILY HISTORY Problem Relation Age of Onset - Coronary Artery Disease Mother - Diabetes Mother - Headache Mother - Hypertension Mother - COPD Mother Multiple mebers of maternal family. - Diabetes Brother - Stroke Father - Breast Cancer Sister - Cancer Sister Lung. Uncle. REVIEW OF SYMPTOMS: The review of systems data was entered by the nurse and reviewed by me There are no exam notes on file for this visit. PHYSICAL EXAMINATION: General: The patient is 57 year old female, well nourished, well hydrated in no acute distress. The patient is oriented to time, place, and person. VITALS: Blood pressure 104/62, pulse 106, temperature 36.4 ?C (97.6 ?F), temperature source Temporal Artery, height 162.6 cm (5' 4), weight 71.2 kg (157 lb), SpO2 92 %. Body mass index is 26.95 kg/m?. HEENT: Normal cephalic, ataumatic, pupils are equally round, sclera are anicteric, mucous membranes are moist, oropharynx is clear. Neck has no masses, asymmetry or lymphadenopathy. Respiratory: Clear to auscultation and percussion. Normal respiratory excursion and pattern. Cardiac: Examination is regular rate and rhythm. Abdominal exam: Soft, nontender, with no palpable masses. No hepatosplenomegaly. No palpable hernias. Rectal exam: exam deferred Extremities: no clubbing, cyanosis or edema. No adenopathy. Other: LABORATORY VALUES: As Noted RADIOLOGIC STUDIES: As Noted Assessment IMPRESSION: heme positive stool without presence of anemia, fecal leukocytes, loose stools. Tobacco abuse, GERD. Significant medical comorbidities including pericardial effusion, CHF, COPD PLAN: Dr. Castañeda also evaluated the patient and participated in development of the following plan. Recommend upper and lower endoscopy with Monitored Anesthetic Care, however ideally this would be performed after patient's pericardial window and not before. We feel based on history and exam that patient's risk of adverse cardiac event related to possible dehydration from the bowel preparation require for colonoscopy is more significant than risk for GI bleeding at this time. Additionally, when endoscopy is performed would recommend that patient be admitted the day prior for IV fluids and bowel preparation with procedure the following day. This may need to be performed at [facility] [place] based on patient's risk factors. Will discuss recommendations with Carmen Marley CNP and Dr. Moran. Diagnoses: (R19.5) Heme positive stool (primary encounter diagnosis) (J44.9) Chronic obstructive pulmonary disease, unspecified COPD type (HCC) (K21.9) Gastroesophageal reflux disease, esophagitis presence not specified (Z72.0) Tobacco use (I31.3) Pericardial effusion Mar Palacios PA-C This patient was seen in conjunction with JUDY Merino, I reviewed the above note, discussed the pertinent history and examined the patient and agreed with the above examination. We have discussed the diagnosis and plan. Those plans have been communicated to the patient. . She has no high risk history for ulcers and no signs of significant bleeding ? no melena, abdominal pain, etc. She thought she saw a ?worm? in her stool, which prompted her PCP to order stool studies. I think she is low risk for active GI bleeding. I am comfortable with her undergoing her window. I spoke with Dr. Latham this morning. Veronica Castañeda MD CNOV Observed: 06/09/2018 Status: COMPLETED Source: [place] 1:00 PM [facility] REPOSITORY Office Visit (GENSWS) CRUZ JACOBO ([id number]) 1960 F Date Time Provider Department 06/09/18 1:00 PM MAR PALACIOS) GENSWS During your visit today, we recorded the following information about you: Temperature Pulse Blood pressure Weight 97.6 degrees 106/minute 104/62 71.2 kg Height 1.626 m Veronica Castañeda MD 06/10/2018 12:39 PM Signed HISTORY AND PHYSICAL Cruz Jacobo 1960 REFERRING PHYSICIAN: Tex Miller MD CHIEF COMPLAINT: Consult (Heme post stool ) HPI: The patient is a 57 year old female referred for endoscopy. Cruz notes that for several months she has been experiencing intermittent diarrhea and looser stools than usual. She notes this is worse at night and has had some stool leakage requiring her to wear a pad at night. She notes at one point she saw something that looked like a worm and became concerned. States around that time she also noted some visible bright red blood in stool. Patient also noted a long-standing history of significant acid reflux, takes medication for this but still has some breakthrough symptoms. She smokes cigarettes, unable to determine exactly how many daily as she rolls her own but roughly the equivalent of two packs. She had made her physician aware of the above complaints and had stool studies ordered. Hemoccult testing as well as fecal leukocytes were positive. Stool cultures for cryptosporidium and giardia as well as testing for H. Pylori were negative. Patient is actually scheduled to undergo open heart surgery next Wednesday. She was referred to our office to address concern for GI bleed due to the heme positive stool prior to her cardiac surgery. Cruz has not undergone prior endoscopy. The patient is being seen by me today at the request of Dr. Miller and Dr. Moran for my opinion and advice regarding heme positive stool. PAST MEDICAL HISTORY Diagnosis Date - YEN positive 12/06/2017 Seeing Rheum - Cancer ([facility]) - CHF (congestive heart failure) ([facility]) 12/06/2017 - COPD (chronic obstructive pulmonary disease) ([facility]) - Fibromyalgia 03/09/2014 - Heme positive stool 05/29/2018 - HTN (hypertension) - Hyperlipidemia 01/30/2014 - Insomnia 09/20/2013 - Lipoma of buttock 01/25/2014 Left glut - Low back pain 05/09/2013 - Lumbar canal stenosis 12/06/2017 Moderate at L2-L3 - Lumbar facet arthropathy 12/06/2017 - Lumbar foraminal stenosis 12/06/2017 - 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 Ruiz, on colchicine - Routine gynecological examination Dr. Arreola - Seasonal allergies - Smoker 01/25/2014 - Substance abuse ([facility]) - Urge incontinence 06/22/2013 - Vitamin D deficiency 01/25/2014 - Wound infection, posttraumatic 03/2018 hit right jurado on car door PAST SURGICAL HISTORY Procedure Laterality Date - FECAL OCCULT BLOOD TEST 12/09/2017 negative - STRESS TEST 08/28/2014 NL - HERLINDA W/WO REMOVAL TUBE OVARY HERLINDA-BSO - TONSILLECTOMY HX - [facility] DELIVERY SCHEDULING ORDER 2002 Current Outpatient Prescriptions: amLODIPine (NORVASC) 5 mg tablet take 1 tablet by mouth once daily aspirin, enteric coated (ADULT LOW DOSE ASPIRIN) 81 mg EC tablet Take 1 tablet by mouth once daily. atorvastatin (LIPITOR) 10 mg tablet Take 1 tablet by mouth daily at bedtime. baclofen (LIORESAL) 20 mg tablet take 1 tablet by mouth 2 to three times a day for muscle spasm benazepril (LOTENSIN) 20 mg tablet Take 1 tablet by mouth once daily. buPROPion HCl, smoking deter, 150 mg Tb12 take 1 tablet by mouth once daily for 2 weeks then take 1 tablet twice a day Cholecalciferol, Vitamin D3, 2,000 unit cap Take 1 capsule by mouth twice daily. EPINEPHrine (EPIPEN) 0.3 mg/0.3 mL auto-injector Inject 0.3 mL intramuscularly as needed. gabapentin (NEURONTIN) 400 mg capsule Take 3 capsules by mouth daily at bedtime for 180 days. ibuprofen (MOTRIN) 800 mg tablet take 1 tablet by mouth every 8 hours with food if needed for pain mupirocin (BACTROBAN) 2 % ointment Apply 1 application to affected area twice daily. omeprazole (PRILOSEC) 20 mg capsule take 1 tablet by mouth daily 1/2 HOUR BEFORE BREAKFAST oxybutynin ER (DITROPAN XL) 10 mg 24 hr tablet take 1 tablet by mouth once daily - TO REPLACE DETROL PROAIR HFA 90 mcg/actuation inhaler inhale 2 puffs by mouth four times a day rOPINIRole (REQUIP) 0.5 mg tablet take 2 tablets by mouth at bedtime SPIRIVA WITH HANDIHALER 18 mcg inhalation capsule inhale contents of 1 capsule as directed once daily SYMBICORT 160-4.5 mcg/actuation inhaler Inhale 2 Puffs as instructed twice daily. No current facility-administered medications for this visit. ALLERGIES: Bee Sting; Aleve [Naproxen] PERSONAL HISTORY: Social History Marital status: Spouse name: Years of education: Number of children: Occupational History Occupation Employer Comment [employer], last done 2011 Social History Main Topics Smoking status: Current Every Day Smoker Packs/day: 2.00 Years: 37.00 Start date: 1976 Smokeless tobacco: Never Used Alcohol use: No Comment: None since 2011, TO 02/2016. Drug use: No Social History Narrative Tried Chantix and Nicotine patch. First morning cigarette right after going to the bathroom. Hardest cigarette to give up- morning cigarette. Once get coffee in the morning, it is one after another. Quit during hospitalization with delivery of baby for 1 week. Smoked during . FAMILY HISTORY: FAMILY HISTORY Problem Relation Age of Onset - Coronary Artery Disease Mother - Diabetes Mother - Headache Mother - Hypertension Mother - COPD Mother Multiple mebers of maternal family. - Diabetes Brother - Stroke Father - Breast Cancer Sister - Cancer Sister Lung. Uncle. REVIEW OF SYMPTOMS: The review of systems data was entered by the nurse and reviewed by me There are no exam notes on file for this visit. PHYSICAL EXAMINATION: General: The patient is 57 year old female, well nourished, well hydrated in no acute distress. The patient is oriented to time, place, and person. VITALS: Blood pressure 104/62, pulse 106, temperature 36.4 ?C (97.6 ?F), temperature source Temporal Artery, height 162.6 cm (5' 4), weight 71.2 kg (157 lb), SpO2 92 %. Body mass index is 26.95 kg/m?. HEENT: Normal cephalic, ataumatic, pupils are equally round, sclera are anicteric, mucous membranes are moist, oropharynx is clear. Neck has no masses, asymmetry or lymphadenopathy. Respiratory: Clear to auscultation and percussion. Normal respiratory excursion and pattern. Cardiac: Examination is regular rate and rhythm. Abdominal exam: Soft, nontender, with no palpable masses. No hepatosplenomegaly. No palpable hernias. Rectal exam: exam deferred Extremities: no clubbing, cyanosis or edema. No adenopathy. Other: LABORATORY VALUES: As Noted RADIOLOGIC STUDIES: As Noted Assessment IMPRESSION: heme positive stool without presence of anemia, fecal leukocytes, loose stools. Tobacco abuse, GERD. Significant medical comorbidities including pericardial effusion, CHF, COPD PLAN: Dr. Castañeda also evaluated the patient and participated in development of the following plan. Recommend upper and lower endoscopy with Monitored Anesthetic Care, however ideally this would be performed after patient's pericardial window and not before. We feel based on history and exam that patient's risk of adverse cardiac event related to possible dehydration from the bowel preparation require for colonoscopy is more significant than risk for GI bleeding at this time. Additionally, when endoscopy is performed would recommend that patient be admitted the day prior for IV fluids and bowel preparation with procedure the following day. This may need to be performed at [facility] [place] based on patient's risk factors. Will discuss recommendations with Carmen Lee CNP and Dr. Moran. Diagnoses: (R19.5) Heme positive stool (primary encounter diagnosis) (J44.9) Chronic obstructive pulmonary disease, unspecified COPD type (HCC) (K21.9) Gastroesophageal reflux disease, esophagitis presence not specified (Z72.0) Tobacco use (I31.3) Pericardial effusion Mar Palacios PA-C This patient was seen in conjunction with JUDY Merino, I reviewed the above note, discussed the pertinent history and examined the patient and agreed with the above examination. We have discussed the diagnosis and plan. Those plans have been communicated to the patient. . She has no high risk history for ulcers and no signs of significant bleeding ? no melena, abdominal pain, etc. She thought she saw a ?worm? in her stool, which prompted her PCP to order stool studies. I think she is low risk for active GI bleeding. I am comfortable with her undergoing her window. I spoke with Dr. Latham this morning. MD Marshall Galeano LPN 06/10/2018 7:31 AM Signed REVIEW OF SYSTEMS: General: The patient NOTES fatigue, denies weight loss, denies weight gain, denies feeling hot, and denies feelings of cold. Eyes: The patient denies glaucoma, denies eye injury/surgery, does not wear glasses or contacts. Ear/Nose/Throat: The patient NOTES allergies, NOTES hayfever, denies ear infections, and denies bloody noses. Cardiovascular: The patient denies chest pain, denies heart disease, denies high blood pressure,denies cardiac stent, denies prior heart attack, denies irregular heart beat, NOTES high cholesterol, denies poor circulation, denies heart failure, NOTES other cardiac issues, denies claudication, denies cold feet, denies peripheral arterial stent. Respiratory: The patient denies tuberculosis, denies pneumonia, denies frequent cough, denies pulmonary embolism, NOTES shortness of breath, and denies coughing up blood. Gastrointestinal: The patient denies difficulty swallowing, NOTES acid reflux, denies ulcers, denies vomiting, denies jaundice/hepatitis, denies gallbladder problems, denies black or tarry stools, NOTES hemorrhoids, denies bleeding from rectum, denies diverticulitis, denies constipation, denies diarrhea, denies loss of stool control, and denies hernias. Kidney/Bladder: The patient denies kidney stones, denies urine infections, and denies bloody urine. Skin: The patient denies a history of skin cancer, denies bleeding/changing moles, and denies a history of skin rash. Neurologic: The patient denies a history of epilepsy/convulsions, denies headaches, denies head/spinal injuries, and denies stroke/TIA. Psychiatric: The patient denies psychiatric medications, NOTES depression, and denies voices, NOTES substance abuse. Endocrine: The patient denies thyroid disorders, denies diabetes, and denies hormonal problems. Hematologic: The patient denies a history of bruising, denies bleeding, and denies anemia, denies blood clots. Infections: The patient denies a history of measles and mumps, denies rheumatic fever, and denies sexually transmitted diseases. Musculoskeletal: The patient NOTES back pain/injury, NOTES back problems, denies sciatica, NOTES knee/foot trouble, NOTES arthritis, or denies gout. When was patient's last Mammogram screening? 12/06/17 Last Colonoscopy: N/A Marshall Tang LPN Referring Provider: TEX MILLER [[id number]] Allergies As of Date: 06/09/2018 Noted Allergy Reaction BEE STING 05/09/2013 7 - Swelling 12 - Shortness of Breath ALEVE (NAPROXEN) 05/09/2013 4 - Hives Date Reviewed: 06/09/2018 Reviewed by: Mar Newton) - Fully Assessed Reason for Visit: Consult [173] Cmt: Heme post stool Primary Visit Diagnosis:Heme positive stool [R19.5] Other Visit Diagnoses:Chronic obstructive pulmonary disease, unspecified COPD type ([facility]) [J44.9] Gastroesophageal reflux disease, esophagitis presence not specified [K21.9] Tobacco use [Z72.0] Pericardial effusion [I31.3] Prescriptions as of 06/09/2018 Sig: AMLODIPINE 5 MG TABLET take 1 tablet by mouth once d* ASPIRIN 81 MG TABLET,DELAYED * Take 1 tablet by mouth once d* ATORVASTATIN 10 MG TABLET Take 1 tablet by mouth daily * BACLOFEN 20 MG TABLET take 1 tablet by mouth 2 to t* BENAZEPRIL 20 MG TABLET Take 1 tablet by mouth once d* BUPROPION HCL 150 MG TABLET,1* take 1 tablet by mouth once d* CHOLECALCIFEROL (VITAMIN D3) * Take 1 capsule by mouth twice* EPINEPHRINE 0.3 MG/0.3 ML INJ* Inject 0.3 mL intramuscularly* GABAPENTIN 400 MG CAPSULE Take 3 capsules by mouth zahra* IBUPROFEN 800 MG TABLET take 1 tablet by mouth every * MUPIROCIN 2 % TOPICAL OINTMENT Apply 1 application to affect* OMEPRAZOLE 20 MG CAPSULE,DIONE* take 1 tablet by mouth daily * OXYBUTYNIN CHLORIDE ER 10 MG * take 1 tablet by mouth once d* PROAIR HFA 90 MCG/ACTUATION A* inhale 2 puffs by mouth four * ROPINIROLE 0.5 MG TABLET take 2 tablets by mouth at be* SPIRIVA WITH HANDIHALER 18 MC* inhale contents of 1 capsule * SYMBICORT 160 MCG-4.5 MCG/ACT* Inhale 2 Puffs as instructed * Problem List As Of Date 06/09/2018 Noted Resolved Seasonal allergies [J30.2] Routine gynecological examination [Z01.419] More... Urge incontinence [N39.41] INVALID FOR* Insomnia [G47.00] INVALID FOR* Vitamin D deficiency [E55.9] INVALID FOR* Smoker [F17.200] INVALID FOR* More... Lipoma of buttock [D17.1] INVALID FOR* More... More... Fibromyalgia [M79.7] INVALID FOR* Essential hypertension [I10] INVALID FOR* Chronic obstructive pulmonary disease (HCC) [J4*INVALID FOR* More... Mixed hyperlipidemia [E78.2] INVALID FOR* Gastroesophageal reflux disease without esophag*INVALID FOR* Low back pain [M54.5] INVALID FOR* More... Arthritis of both knees [M17.0] INVALID FOR* More... Pericardial effusion [I31.3] INVALID FOR* More... Carpal tunnel syndrome of left wrist [G56.02] INVALID FOR* More... Obesity (BMI 35.0-39.9 without comorbidity) [E6*INVALID FOR*01/12/2017 Obesity (BMI 30.0-34.9) [E66.9] INVALID FOR* More... Current use of proton pump inhibitor [Z79.899] INVALID FOR* More... Lumbar canal stenosis [M48.061] INVALID FOR* More... Lumbar foraminal stenosis [M99.83] INVALID FOR* Lumbar facet arthropathy (HCC) [M47.816] INVALID FOR* CHF (congestive heart failure) (HCC) [I50.9] INVALID FOR* More... YEN positive [R76.8] INVALID FOR* More... Medicare annual wellness visit, subsequent [Z00*INVALID FOR* More... Well adult exam [Z00.00] INVALID FOR* More... Screening for colon cancer [Z12.11] INVALID FOR* Encounter for screening mammogram for breast ca*INVALID FOR* Elevated hemoglobin (HCC) [D58.2] INVALID FOR* Secondary polycythemia [D75.1] INVALID FOR* More... Wound infection, posttraumatic [T14.8XXA, L08.9]INVALID FOR* More... Heme positive stool [R19.5] INVALID FOR* Pre-op testing [Z01.818] INVALID FOR* More... Discharge planning issues [Z02.9] INVALID FOR* More... Visit Notes: >> Marshall Clyde DON WedJun 10, 2018 7:28 AM Status: Signed REVIEW OF SYSTEMS: General: The patient NOTES fatigue, denies weight loss, denies weight gain, denies feeling hot, and denies feelings of cold. Eyes: The patient denies glaucoma, denies eye injury/surgery, does not wear glasses or contacts. Ear/Nose/Throat: The patient NOTES allergies, NOTES hayfever, denies ear infections, and denies bloody noses. Cardiovascular: The patient denies chest pain, denies heart disease, denies high blood pressure,denies cardiac stent, denies prior heart attack, denies irregular heart beat, NOTES high cholesterol, denies poor circulation, denies heart failure, NOTES other cardiac issues, denies claudication, denies cold feet, denies peripheral arterial stent. Respiratory: The patient denies tuberculosis, denies pneumonia, denies frequent cough, denies pulmonary embolism, NOTES shortness of breath, and denies coughing up blood. Gastrointestinal: The patient denies difficulty swallowing, NOTES acid reflux, denies ulcers, denies vomiting, denies jaundice/hepatitis, denies gallbladder problems, denies black or tarry stools, NOTES hemorrhoids, denies bleeding from rectum, denies diverticulitis, denies constipation, denies diarrhea, denies loss of stool control, and denies hernias. Kidney/Bladder: The patient denies kidney stones, denies urine infections, and denies bloody urine. Skin: The patient denies a history of skin cancer, denies bleeding/changing moles, and denies a history of skin rash. Neurologic: The patient denies a history of epilepsy/convulsions, denies headaches, denies head/spinal injuries, and denies stroke/TIA. Psychiatric: The patient denies psychiatric medications, NOTES depression, and denies voices, NOTES substance abuse. Endocrine: The patient denies thyroid disorders, denies diabetes, and denies hormonal problems. Hematologic: The patient denies a history of bruising, denies bleeding, and denies anemia, denies blood clots. Infections: The patient denies a history of measles and mumps, denies rheumatic fever, and denies sexually transmitted diseases. Musculoskeletal: The patient NOTES back pain/injury, NOTES back problems, denies sciatica, NOTES knee/foot trouble, NOTES arthritis, or denies gout. When was patient's last Mammogram screening? 12/06/17 Last Colonoscopy: N/A Marshall Tang LPN Follow-up and Disposition History Recorded Encounter Status:Closed by VERONICA CASTAÑEDA MD on 06/10/18 PROGRESS Observed: 06/08/2018 Status: COMPLETED Source: [place] 10:23 AM [facility] RE[facility] HNO ID: [id number] Author: Carmen Lee Service: (none) Author Type: Nurse Practitioner Type: Progress Notes Filed: 06/08/2018 10:24 AM Note Text: See epic PROGRESS Observed: 06/08/2018 Status: COMPLETED Source: [place] 9:45 AM [facility] REPOS[facility] HNO ID: [id number] Author: Carmen Lee Service: (none) Author Type: Nurse Practitioner Type: Progress Notes Filed: 06/08/2018 9:47 AM Note Text: AMBULATORY PATIENT EDUCATION READINESS TO LEARN Cognitive Ability: Alert and oriented Motivation To Learn: Interested Family Support: High - Very involved in pt care Instruction Provided To: Patient AND Family Patient Learns Best By: Multiple Methods Factors Affecting Learning: None Physical Limitations Affecting Learning: None LEARNING RESPONSE Diagnosis: pericardial effusion Education Topic: Pre-Op Open Heart Surgery Instructions Teaching Points: Logistics / Protocols /Complication Prevention Instruction/Supplemental Materials: Cardiac Surgery Information Binder Video Individual Instruction Patient/Family Response: Verbalizes understanding Follow up plan: Patient/Family to call [facility] with any further questions Referral (Recommendation): None Teach completed, topic: bactroban PROGRESS Observed: 06/08/2018 Status: COMPLETED Source: [place] 9:08 AM [facility] HNO ID: [id number] Author: Carmen Lee Service: (none) Author Type: Nurse Practitioner Type: Progress Notes Filed: 06/08/2018 10:20 AM Note Text: CONSULT HISTORY and PHYSICAL CARDIOTHORACIC SURGERY Consulting Service: Cardiothoracic Surgery Requesting Provider: [facility] Card Puncher, George Multani on 04/27/18. Opinion/advice regarding: Pre-Op Open Heart Surgery Cardiothoracic Physician: Maykel Moran M.D. NAME: Cruz Jacobo HEIGHT: 162.6 cm WEIGHT: 72.4 kg Intended Procedure: pericardial window REDO: No STS SCORE: unsupported Has this patient been previously evaluated for Open Heart Surgery for this condition? No HPI: (4) This is a 57 year old female who presents in consultation for an opinion regarding treatment options for pericardial effusion. She is currently symptomatic and complains of decreased exercise tolerance, GLYNN with ADLs, and resolving wound RLE. Denies recent febrile illness. Had influenza vaccine this season. Weight is down 10 lbs in past 6 months. Noted that she had a positive stool hemecolt 05/29/18. States her PCP will order a colonoscopy. 15 y o daughter Mally is present at today's visit but will be staying with relatives when her mom has OHS. Pt will be alone. Mom and daughter reside in [place], [place]. Comorbidities include severe COPD pulmonary HTN ? 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 Ruiz, on colchicine - Routine gynecological examination Dr. Arreola - Seasonal allergies - Smoker 01/25/2014 - Substance abuse (HCC) - Urge incontinence 06/22/2013 - Vitamin D deficiency 01/25/2014 - Wound infection, posttraumatic 03/2018 hit right jurado on car door PAST SURGICAL HISTORY: PAST SURGICAL HISTORY Procedure Laterality Date - FECAL OCCULT BLOOD TEST 12/09/2017 negative - STRESS TEST 08/28/2014 NL - HERLINDA W/WO REMOVAL TUBE OVARY HERLINDA-BSO - TONSILLECTOMY HX - [facility] DELIVERY SCHEDULING ORDER 2002 FAMILY HISTORY: FAMILY HISTORY Problem Relation Age of Onset - Coronary Artery Disease Mother - Diabetes Mother - Headache Mother - Hypertension Mother - COPD Mother Multiple mebers of maternal family. - Diabetes Brother - Stroke Father - Breast Cancer Sister - Cancer Sister Lung. Uncle. FAMILY HISTORY OF CAD: Yes SOCIAL HISTORY: Social History Substance Use Topics - Smoking status: Current Every Day Smoker Packs/day: 2.00 Years: 37.00 Start date: 1976 - Smokeless tobacco: Never Used - Alcohol use No Comment: None since 2011, TO 02/2016. SOCIAL HISTORY OF IVDU: No SOCIAL HISTORY OF Smoking: Yes, 2 ppd SOCIAL HISTORY OF Alcohol Dependency: No MEDICATIONS: Prior to Admission Medications: amLODIPine (NORVASC) 5 mg tablet take 1 tablet by mouth once daily aspirin, enteric coated (ADULT LOW DOSE ASPIRIN) 81 mg EC tablet Take 1 tablet by mouth once daily. atorvastatin (LIPITOR) 10 mg tablet Take 1 tablet by mouth daily at bedtime. baclofen (LIORESAL) 20 mg tablet take 1 tablet by mouth 2 to three times a day for muscle spasm benazepril (LOTENSIN) 20 mg tablet Take 1 tablet by mouth once daily. buPROPion HCl, smoking deter, 150 mg Tb12 take 1 tablet by mouth once daily for 2 weeks then take 1 tablet twice a day Cholecalciferol, Vitamin D3, 2,000 unit cap Take 1 capsule by mouth twice daily. EPINEPHrine (EPIPEN) 0.3 mg/0.3 mL auto-injector Inject 0.3 mL intramuscularly as needed. gabapentin (NEURONTIN) 400 mg capsule Take 3 capsules by mouth daily at bedtime for 180 days. ibuprofen (MOTRIN) 800 mg tablet take 1 tablet by mouth every 8 hours with food if needed for pain mupirocin (BACTROBAN) 2 % ointment Apply 1 application to affected area twice daily. omeprazole (PRILOSEC) 20 mg capsule take 1 tablet by mouth daily 1/2 HOUR BEFORE BREAKFAST oxybutynin ER (DITROPAN XL) 10 mg 24 hr tablet take 1 tablet by mouth once daily - TO REPLACE DETROL PROAIR HFA 90 mcg/actuation inhaler inhale 2 puffs by mouth four times a day rOPINIRole (REQUIP) 0.5 mg tablet take 2 tablets by mouth at bedtime SPIRIVA WITH HANDIHALER 18 mcg inhalation capsule inhale contents of 1 capsule as directed once daily SYMBICORT 160-4.5 mcg/actuation inhaler Inhale 2 Puffs as instructed twice daily. No current hospital medications on file. ALLERGIES: ALLERGIES Allergen Reactions - Bee Sting Swelling, Shortness of Breath - Aleve [Naproxen] Hives COMPLETE REVIEW OF SYSTEMS: (10) Constitutional: Weight loss - Yes, 10 lbs last 6 months HEENT: Negative for frequent or significant headaches, No changes in hearing or vision, no nose bleeds or other nasal problems. Full dentures Resp: Positive for chronic cough, shortness of breath on exertion and shortness of breath limiting daily activity Cardiovascular: Negative for chest pain, leg swelling or palpitations GI: Positive for blood in stools. Noted BRBPR 05/28/18 seen by PCP 05/29/18 hemacolt was positive. Colonoscopy is to be scheduled. : Negative for dysuria, frequency and hematuria and Positive for urge incontinence Endo: Negative for cold or heat intolerance, polyuria, polydipsia and goiter Heme/Lymph: Negative for prolonged bleeding and swollen nodes and Positive for bruises easily Neurologic: No history or headaches, syncope, paralysis, seizures or tremors Integumentary: Negative for lesions, rash, and itching. Additional systems reviewed: Musculoskeletal: Positive for small open area right jurado PHYSICAL EXAM: (8) BP 112/70 (BP Site: Left Arm, BP Position: Sitting) Pulse 68 Temp 36.6 ?C (97.9 ?F) (Oral) Resp 18 Ht 162.6 cm (5' 4) Wt 68 kg (150 lb) SpO2 97% BMI 25.75 kg/m? Constitutional: Well developed, Well nourished and No distress HEENT: Dentures, JVD - yes and Bruits - no Resp: Decreased breath sounds Cardiovascular: Regular rate AND rhythm, S1, S2 normal and Vascular: Pulses - Carotid 2+, Dorsalis pedis 2+ and Posterior tibia 2+ and No varicosities GI: Soft, Non-tender, Bowel sounds present and Non-distended Integumentary: Warm, Dry, No rash on chest, arms or legs and small open area right jurado Musculoskeletal: No deformities Neurological/Psychiatric: Oriented to time, place AND person , Alert and Steady gait Additional systems reviewed: No additional systems reviewed Labs: Recent Labs 06/06/18 0903 WBC 6.47 HB 16.6* HCT 51.2* PLT 162 Recent Labs 06/06/18 0900 INR 1.0 APTT 26.5 Recent Labs 06/06/18 0903 NA 140 K 4.1 CHLOR 100 CO2 27 BUN 12 CREAT 0.81 GLUC 90 Cholesterol, Total 152 04/27/2018 HDL Cholesterol 42 04/27/2018 LDL Cholesterol 90 04/27/2018 DATA: I have personally reviewed the following data: Cardiac Catheterization: 06/06/18 SERGE/TTE: 04/27/18 CXR: 04/06/18 CT 04/06/18 Dental clearance full dentures EK06/06/18 Impression: This is a 57 year old year-old female, who is being evaluated for surgical intervention of pericardial effusion. In consideration for surgery, the patient's acute and chronic medical issues have been evaluated as documented above and reviewed in the electronic medical record. Plan: Patient will be seen today by the surgeon, Dr. Maykel Moran M.D.. If the patient is a surgical candidate according to criteria met, then advise the following: Bactroban, prescriptions and instructions given. Anticipated Discharge Needs: PT/OT/RT evalulation for anticipated Home Care needs These findings will be communicated back to the requesting provider electronically. SIGNATURE:Carmen Lee APRN.CNP PAGER:[phone] Date of Service: 06/08/18 Time of Service: 9:44 AM PROGRESS Observed: 06/08/2018 Status: COMPLETED Source: [place] 8:44 AM [facility] REPOSIT[facility] ID: [id number] Author: Malcolm (Leila) Farzana Service: (none) Author Type: Resident Type: Progress Notes Filed: 06/08/2018 9:08 AM Note Text: [facility] EVALU[facility] CARDIOTHORACIC ANESTHESIA CARDIAC SURGERY SERVICE DATE: 06/08/2018 SERVICE TIME: 8:45 AM Proposed Surgical Procedure: Pericardial window Re-do: No ASA Class: 4 Surgeon: Rachid Surgery Date: 06/14/18 Idiopathic pericardial effusion initially diagnosed in 2013 but has continued to slowly enlarge over time despite NSAID therapy. She reports limited ability to lay flat without becoming short of breath. She is a current smoker. Co-morbidities include HTN, HLD, CHF, COPD. There is a positive hemoccult stool test in her chart obtained on 05/29, reason for ordering is not clear and patient is unable to provide details about why the test was ordered or if a follow up plan was discussed. Dr. Moran is aware. Last Wt 06/08/18 : 68 kg (150 lb) Last Ht 06/08/18 : 162.6 cm (5' 4) Estimated body mass index is 25.75 kg/m? as calculated from the following: Height as of an earlier encounter on 06/08/18: 162.6 cm (5' 4). Weight as of an earlier encounter on 06/08/18: 68 kg (150 lb). Estimated body surface area is 1.75 meters squared as calculated from the following: Height as of an earlier encounter on 06/08/18: 162.6 cm (5' 4). Weight as of an earlier encounter on 06/08/18: 68 kg (150 lb). Active Problems: * No active hospital problems. * Resolved Problems: * No resolved hospital problems. 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 Ruiz, on colchicine - Routine gynecological examination Dr. Arreola - Seasonal allergies - Smoker 01/25/2014 - Substance abuse (HCC) - Urge incontinence 06/22/2013 - Vitamin D deficiency 01/25/2014 PAST SURGICAL HISTORY Procedure Laterality Date - FECAL OCCULT BLOOD TEST 12/09/2017 negative - STRESS TEST 08/28/2014 NL - HERLINDA W/WO REMOVAL TUBE OVARY HERLINDA-BSO - TONSILLECTOMY HX - [facility] DELIVERY SCHEDULING ORDER 2002 FAMILY HISTORY Problem Relation Age of Onset - Coronary Artery Disease Mother - Diabetes Mother - Headache Mother - Hypertension Mother - COPD Mother Multiple mebers of maternal family. - Diabetes Brother - Stroke Father - Breast Cancer Sister - Cancer Sister Lung. Uncle. Social History Substance Use Topics - Smoking status: Current Every Day Smoker Packs/day: 2.00 Years: 37.00 Start date: 1976 - Smokeless tobacco: Never Used - Alcohol use No Comment: None since 2011, TO 02/2016. ALLERGIES Allergen Reactions - Bee Sting Swelling, Shortness of Breath - Aleve [Naproxen] Hives REVIEW OF SYSTEMS: Neuro: TIA's Headaches Seizures Respiratory: COPD Cardiovascular: Positive for: HLD, Hypertension GI: No history of GI symptoms or problems. No history of esophageal varices, recent ascites, or ETOH greater than 2 drinks per day. Endocrine: No history of diabetes. Has not taken steroids within the past 30 days. No history of endocrinological symptoms or problems. Hematology: No history of bleeding or clotting disorder. Pt is not taking anti-coagulation or platelet medications. No history of hematological symptoms or problems. CKD AND ANEMIA ASSESSMENT: Patient has both eGFR < 60 mL/min and a Hemoglobin < 11 g/dl: No if the patient is going on CPB. ANESTHETIC HISTORY: History of general anesthesia without complications. AIRWAY ASSESSMENT: Airway History: No abnormal airway history Airway Exam: General: Normal appearance Mallampati Score: CLASS I Temporo-Mandibular Displacement Test: Position A (lower teeth can be advanced beyond upper teeth) Interincisor Distance: 5 cm Thyromental Distance: 6 cm Neck Circumference: 36 cm Overbite: No Cervical Mobility: Normal Facial Hair: No Head/Neck Pathology: No ANTICIPATED DIFFICULT AIRWAY: NO Pre-Existing Diagnosis of Obstructive Sleep Apnea: No, STOP BANG SCORE: Criteria = Criteria: Snoring Tired Hypertension Age over 50 (57 year old) Score = 4, Score = 4 PHYSICAL EXAM: VITALS: There were no vitals taken for this visit. CARDIAC: Regular rate and rhythm. LUNGS: Lungs clear to auscultation. Good air entry bilaterally. Lines, Drains, Airway: None LABS: Lab Results Past 6 Months Component Value Date HB 16.6 (H) 06/06/2018 HCT 51.2 (H) 06/06/2018 PLT 162 06/06/2018 WBC 6.47 06/06/2018 NA 140 06/06/2018 K 4.1 06/06/2018 CREAT 0.81 06/06/2018 CA 9.6 06/06/2018 APTT 26.5 06/06/2018 INR 1.0 06/06/2018 HBA1C 5.5 04/07/2018 TSH 1.770 04/27/2018 Lab Results Past 6 Months Component Value Date GLUC 90 06/06/2018 K 4.1 06/06/2018 NA 140 06/06/2018 CHLOR 100 06/06/2018 CO2 27 06/06/2018 CREAT 0.81 06/06/2018 BUN 12 06/06/2018 ANION 13 06/06/2018 CA 9.6 06/06/2018 TPROT 6.7 04/27/2018 ALB 4.0 04/27/2018 TBILI 0.3 04/27/2018 ALKPHOS 70 04/27/2018 AST 17 04/27/2018 ALT 15 04/27/2018 ABO/RH(D) (no units) Date Value 06/06/2018 B POSITIVE Antibody Screen (no units) Date Value 06/06/2018 NEG Historical Ab Scr Status (no units) Date Value 06/06/2018 NEGATIVE Anticipated Blood Products Ordered: No blood product orders needed. Will the Patient Accept Blood: Yes IMAGING AND TESTS: C: Coronary Anatomy: Right Dominant Injection Site(s): Left Main Coronary Artery and Right Coronary Artery LMT: - The LMT is normal. LAD: - The LAD is normal. LCX: - The Circumflex is normal. RAMUS: - The Ramus is Absent. RCA: - RCA is normal. ECG: Diagnosis:NORMAL SINUS RHYTHM RIGHT AXIS DEVIATION RIGHT VENTRICULAR HYPERTROPHY ABNORMAL ECG ECG: CONCLUSIONS: - Exam indication: Reassess pericardial effusion - The left ventricle is small. There is no left ventricular hypertrophy. Left ventricular systolic function is normal. EF = 70 ? 5% (2D biplane) Left ventricular diastolic function was not evaluated due to inconsistent or technically suboptimal data. - The right ventricle is moderately dilated. Right ventricular systolic function is moderately decreased. - Estimated right ventricular systolic pressure is 65 mmHg consistent with moderately severe pulmonary hypertension. Estimated right atrial pressure is 5 mmHg. Estimated right ventricular systolic pressure is 65 mmHg consistent with moderately severe pulmonary hypertension. Estimated right atrial pressure is 5 mmHg. - Moderate circumferential pericardial effusion with largest ( 2.0cm ) around the LV apex; posterolaterally. No chambers compromise. IVC is small and collapses. No cardiac tamponade physiology. - Exam was compared with the prior echocardiographic exam performed on 03/04/2018. similar findings of pericardial effusion on side-side comparison. DEVICES: none MEDICATIONS: Current Outpatient Prescriptions: amLODIPine (NORVASC) 5 mg tablet take 1 tablet by mouth once daily aspirin, enteric coated (ADULT LOW DOSE ASPIRIN) 81 mg EC tablet Take 1 tablet by mouth once daily. atorvastatin (LIPITOR) 10 mg tablet Take 1 tablet by mouth daily at bedtime. baclofen (LIORESAL) 20 mg tablet take 1 tablet by mouth 2 to three times a day for muscle spasm benazepril (LOTENSIN) 20 mg tablet Take 1 tablet by mouth once daily. buPROPion HCl, smoking deter, 150 mg Tb12 take 1 tablet by mouth once daily for 2 weeks then take 1 tablet twice a day Cholecalciferol, Vitamin D3, 2,000 unit cap Take 1 capsule by mouth twice daily. EPINEPHrine (EPIPEN) 0.3 mg/0.3 mL auto-injector Inject 0.3 mL intramuscularly as needed. gabapentin (NEURONTIN) 400 mg capsule Take 3 capsules by mouth daily at bedtime for 180 days. ibuprofen (MOTRIN) 800 mg tablet take 1 tablet by mouth every 8 hours with food if needed for pain mupirocin (BACTROBAN) 2 % ointment Apply 1 application to affected area twice daily. omeprazole (PRILOSEC) 20 mg capsule take 1 tablet by mouth daily 1/2 HOUR BEFORE BREAKFAST oxybutynin ER (DITROPAN XL) 10 mg 24 hr tablet take 1 tablet by mouth once daily - TO REPLACE DETROL PROAIR HFA 90 mcg/actuation inhaler inhale 2 puffs by mouth four times a day rOPINIRole (REQUIP) 0.5 mg tablet take 2 tablets by mouth at bedtime SPIRIVA WITH HANDIHALER 18 mcg inhalation capsule inhale contents of 1 capsule as directed once daily SYMBICORT 160-4.5 mcg/actuation inhaler Inhale 2 Puffs as instructed twice daily. No current facility-administered medications for this visit. Is the patient currently on any anticoagulant medications: No PAIN AND ANXIETY EDUCATION AND MANAGEMENT: Patient has no concerns to address at this time. Additional Comments: None I have reviewed the Cardiothoracic Surgical Assessment and agree with its findings. During the course of the encounter the patient was prepared for anesthetic care. This conversation included anesthetic options, possible use of invasive monitoring, the risks, benefits, alternatives, and personnel that will be present for the anesthetic encounter. The patient agreed to proceed with the planned anesthetic. Instructed to take all meds as scheduled except no Lotensin with a small sip of water on the morning of surgery. BETA ADAM COMPLIANCE: Is the Patient Scheduled for a CABG: No SIGNATURE: Malcolm Purvis MD, PhD PATIENT NAME: Cruz Jacobo DATE: June 08, 2018 TIME: 8:44 AM PAGER/CONTACT #: STAPH AUREUS PCR Collected: 06/08/2018 Status: F Source: [place] 8:31 AM [facility] REPOSITORY TYPE CODE TESTS RESULT OUT OF REFERENCE UNITS RANGE LAB [facility] Nasal S aureus Spec Source LAB [facility] Negative for MRSA MRSA by PCR. PCR LAB [facility] Negative for Staph Staphylococcus aureus PCR aureus by PCR. Performed By: #### SAPCR #### [facility] [address] [place], [place] [address] CNOV Observed: 06/08/2018 Status: COMPLETED Source: [place] 8:00 AM [facility] REPOSITORY Office Visit (CARTMN) CRUZ JACOBO ([id number]) 1960 F Date Time Provider Department 06/08/18 8:00 AM [facility] CARTMN During your visit today, we recorded the following information about you: Malcolm Purvis MD 06/08/2018 9:08 AM Signed [facility] CARDIOTHORACIC ANESTHESIA CARDIAC SURGERY SERVICE DATE: 06/08/2018 SERVICE TIME: 8:45 AM Proposed Surgical Procedure: Pericardial window Re-do: No ASA Class: 4 Surgeon: Rachid Surgery Date: 06/14/18 Idiopathic pericardial effusion initially diagnosed in 2013 but has continued to slowly enlarge over time despite NSAID therapy. She reports limited ability to lay flat without becoming short of breath. She is a current smoker. Co-morbidities include HTN, HLD, CHF, COPD. There is a positive hemoccult stool test in her chart obtained on 05/29, reason for ordering is not clear and patient is unable to provide details about why the test was ordered or if a follow up plan was discussed. Dr. Moran is aware. Last Wt 06/08/18 : 68 kg (150 lb) Last Ht 06/08/18 : 162.6 cm (5' 4) Estimated body mass index is 25.75 kg/m? as calculated from the following: Height as of an earlier encounter on 06/08/18: 162.6 cm (5' 4). Weight as of an earlier encounter on 06/08/18: 68 kg (150 lb). Estimated body surface area is 1.75 meters squared as calculated from the following: Height as of an earlier encounter on 06/08/18: 162.6 cm (5' 4). Weight as of an earlier encounter on 06/08/18: 68 kg (150 lb). Active Problems: * No active hospital problems. * Resolved Problems: * No resolved hospital problems. 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 Ruiz, on colchicine - Routine gynecological examination Dr. Arreola - Seasonal allergies - Smoker 01/25/2014 - Substance abuse (HCC) - Urge incontinence 06/22/2013 - Vitamin D deficiency 01/25/2014 PAST SURGICAL HISTORY Procedure Laterality Date - FECAL OCCULT BLOOD TEST 12/09/2017 negative - STRESS TEST 08/28/2014 NL - HERLINDA W/WO REMOVAL TUBE OVARY HERLINDA-BSO - TONSILLECTOMY HX - [facility] DELIVERY SCHEDULING ORDER 2002 FAMILY HISTORY Problem Relation Age of Onset - Coronary Artery Disease Mother - Diabetes Mother - Headache Mother - Hypertension Mother - COPD Mother Multiple mebers of maternal family. - Diabetes Brother - Stroke Father - Breast Cancer Sister - Cancer Sister Lung. Uncle. Social History Substance Use Topics - Smoking status: Current Every Day Smoker Packs/day: 2.00 Years: 37.00 Start date: 1976 - Smokeless tobacco: Never Used - Alcohol use No Comment: None since 2011, TO 02/2016. ALLERGIES Allergen Reactions - Bee Sting Swelling, Shortness of Breath - Aleve [Naproxen] Hives REVIEW OF SYSTEMS: Neuro: TIA's Headaches Seizures Respiratory: COPD Cardiovascular: Positive for: HLD, Hypertension GI: No history of GI symptoms or problems. No history of esophageal varices, recent ascites, or ETOH greater than 2 drinks per day. Endocrine: No history of diabetes. Has not taken steroids within the past 30 days. No history of endocrinological symptoms or problems. Hematology: No history of bleeding or clotting disorder. Pt is not taking anti-coagulation or platelet medications. No history of hematological symptoms or problems. CKD AND ANEMIA ASSESSMENT: Patient has both eGFR < 60 mL/min and a Hemoglobin < 11 g/dl: No if the patient is going on CPB. ANESTHETIC HISTORY: History of general anesthesia without complications. AIRWAY ASSESSMENT: Airway History: No abnormal airway history Airway Exam: General: Normal appearance Mallampati Score: CLASS I Temporo-Mandibular Displacement Test: Position A (lower teeth can be advanced beyond upper teeth) Interincisor Distance: 5 cm Thyromental Distance: 6 cm Neck Circumference: 36 cm Overbite: No Cervical Mobility: Normal Facial Hair: No Head/Neck Pathology: No ANTICIPATED DIFFICULT AIRWAY: NO Pre-Existing Diagnosis of Obstructive Sleep Apnea: No, STOP BANG SCORE: Criteria = Criteria: Snoring Tired Hypertension Age over 50 (57 year old) Score = 4, Score = 4 PHYSICAL EXAM: VITALS: There were no vitals taken for this visit. CARDIAC: Regular rate and rhythm. LUNGS: Lungs clear to auscultation. Good air entry bilaterally. Lines, Drains, Airway: None LABS: Lab Results Past 6 Months Component Value Date HB 16.6 (H) 06/06/2018 HCT 51.2 (H) 06/06/2018 PLT 162 06/06/2018 WBC 6.47 06/06/2018 NA 140 06/06/2018 K 4.1 06/06/2018 CREAT 0.81 06/06/2018 CA 9.6 06/06/2018 APTT 26.5 06/06/2018 INR 1.0 06/06/2018 HBA1C 5.5 04/07/2018 TSH 1.770 04/27/2018 Lab Results Past 6 Months Component Value Date GLUC 90 06/06/2018 K 4.1 06/06/2018 NA 140 06/06/2018 CHLOR 100 06/06/2018 CO2 27 06/06/2018 CREAT 0.81 06/06/2018 BUN 12 06/06/2018 ANION 13 06/06/2018 CA 9.6 06/06/2018 TPROT 6.7 04/27/2018 ALB 4.0 04/27/2018 TBILI 0.3 04/27/2018 ALKPHOS 70 04/27/2018 AST 17 04/27/2018 ALT 15 04/27/2018 ABO/RH(D) (no units) Date Value 06/06/2018 B POSITIVE Antibody Screen (no units) Date Value 06/06/2018 NEG Historical Ab Scr Status (no units) Date Value 06/06/2018 NEGATIVE Anticipated Blood Products Ordered: No blood product orders needed. Will the Patient Accept Blood: Yes IMAGING AND TESTS: LHC: Coronary Anatomy: Right Dominant Injection Site(s): Left Main Coronary Artery and Right Coronary Artery LMT: - The LMT is normal. LAD: - The LAD is normal. LCX: - The Circumflex is normal. RAMUS: - The Ramus is Absent. RCA: - RCA is normal. ECG: Diagnosis:NORMAL SINUS RHYTHM RIGHT AXIS DEVIATION RIGHT VENTRICULAR HYPERTROPHY ABNORMAL ECG ECG: CONCLUSIONS: - Exam indication: Reassess pericardial effusion - The left ventricle is small. There is no left ventricular hypertrophy. Left ventricular systolic function is normal. EF = 70 ? 5% (2D biplane) Left ventricular diastolic function was not evaluated due to inconsistent or technically suboptimal data. - The right ventricle is moderately dilated. Right ventricular systolic function is moderately decreased. - Estimated right ventricular systolic pressure is 65 mmHg consistent with moderately severe pulmonary hypertension. Estimated right atrial pressure is 5 mmHg. Estimated right ventricular systolic pressure is 65 mmHg consistent with moderately severe pulmonary hypertension. Estimated right atrial pressure is 5 mmHg. - Moderate circumferential pericardial effusion with largest ( 2.0cm ) around the LV apex; posterolaterally. No chambers compromise. IVC is small and collapses. No cardiac tamponade physiology. - Exam was compared with the prior echocardiographic exam performed on 03/04/2018. similar findings of pericardial effusion on side- side comparison. DEVICES: none MEDICATIONS: Current Outpatient Prescriptions: amLODIPine (NORVASC) 5 mg tablet take 1 tablet by mouth once daily aspirin, enteric coated (ADULT LOW DOSE ASPIRIN) 81 mg EC tablet Take 1 tablet by mouth once daily. atorvastatin (LIPITOR) 10 mg tablet Take 1 tablet by mouth daily at bedtime. baclofen (LIORESAL) 20 mg tablet take 1 tablet by mouth 2 to three times a day for muscle spasm benazepril (LOTENSIN) 20 mg tablet Take 1 tablet by mouth once daily. buPROPion HCl, smoking deter, 150 mg Tb12 take 1 tablet by mouth once daily for 2 weeks then take 1 tablet twice a day Cholecalciferol, Vitamin D3, 2,000 unit cap Take 1 capsule by mouth twice daily. EPINEPHrine (EPIPEN) 0.3 mg/0.3 mL auto-injector Inject 0.3 mL intramuscularly as needed. gabapentin (NEURONTIN) 400 mg capsule Take 3 capsules by mouth daily at bedtime for 180 days. ibuprofen (MOTRIN) 800 mg tablet take 1 tablet by mouth every 8 hours with food if needed for pain mupirocin (BACTROBAN) 2 % ointment Apply 1 application to affected area twice daily. omeprazole (PRILOSEC) 20 mg capsule take 1 tablet by mouth daily 1/2 HOUR BEFORE BREAKFAST oxybutynin ER (DITROPAN XL) 10 mg 24 hr tablet take 1 tablet by mouth once daily - TO REPLACE DETROL PROAIR HFA 90 mcg/actuation inhaler inhale 2 puffs by mouth four times a day rOPINIRole (REQUIP) 0.5 mg tablet take 2 tablets by mouth at bedtime SPIRIVA WITH HANDIHALER 18 mcg inhalation capsule inhale contents of 1 capsule as directed once daily SYMBICORT 160-4.5 mcg/actuation inhaler Inhale 2 Puffs as instructed twice daily. No current facility-administered medications for this visit. Is the patient currently on any anticoagulant medications: No PAIN AND ANXIETY EDUCATION AND MANAGEMENT: Patient has no concerns to address at this time. Additional Comments: None I have reviewed the Cardiothoracic Surgical Assessment and agree with its findings. During the course of the encounter the patient was prepared for anesthetic care. This conversation included anesthetic options, possible use of invasive monitoring, the risks, benefits, alternatives, and personnel that will be present for the anesthetic encounter. The patient agreed to proceed with the planned anesthetic. Instructed to take all meds as scheduled except no Lotensin with a small sip of water on the morning of surgery. BETA ADAM COMPLIANCE: Is the Patient Scheduled for a CABG: No SIGNATURE: Malcolm Purvis MD, PhD PATIENT NAME: Cruz Jacobo DATE: June 08, 2018 TIME: 8:44 AM PAGER/CONTACT #: Referring Provider: MAYKEL MORAN [[id number]] Allergies As of Date: 06/08/2018 Noted Allergy Reaction BEE STING 05/09/2013 7 - Swelling 12 - Shortness of Breath ALEVE (NAPROXEN) 05/09/2013 4 - Hives Date Reviewed: 06/08/2018 Reviewed by: Malcolm (Res) Farzana - Fully Assessed Primary Visit Diagnosis:Encounter for preoperative anesthesiology assessment for cardiac surgery [Z01.818] Prescriptions as of 06/08/2018 Sig: AMLODIPINE 5 MG TABLET take 1 tablet by mouth once d* ASPIRIN 81 MG TABLET,DELAYED * Take 1 tablet by mouth once d* ATORVASTATIN 10 MG TABLET Take 1 tablet by mouth daily * BACLOFEN 20 MG TABLET take 1 tablet by mouth 2 to t* BENAZEPRIL 20 MG TABLET Take 1 tablet by mouth once d* BUPROPION HCL 150 MG TABLET,1* take 1 tablet by mouth once d* CHOLECALCIFEROL (VITAMIN D3) * Take 1 capsule by mouth twice* EPINEPHRINE 0.3 MG/0.3 ML INJ* Inject 0.3 mL intramuscularly* GABAPENTIN 400 MG CAPSULE Take 3 capsules by mouth zahra* IBUPROFEN 800 MG TABLET take 1 tablet by mouth every * OMEPRAZOLE 20 MG CAPSULE,DIONE* take 1 tablet by mouth daily * OXYBUTYNIN CHLORIDE ER 10 MG * take 1 tablet by mouth once d* PROAIR HFA 90 MCG/ACTUATION A* inhale 2 puffs by mouth four * ROPINIROLE 0.5 MG TABLET take 2 tablets by mouth at be* SPIRIVA WITH HANDIHALER 18 MC* inhale contents of 1 capsule * SYMBICORT 160 MCG-4.5 MCG/ACT* Inhale 2 Puffs as instructed * Problem List As Of Date 06/08/2018 Noted Resolved Seasonal allergies [J30.2] Routine gynecological examination [Z01.419] More... Urge incontinence [N39.41] INVALID FOR* Insomnia [G47.00] INVALID FOR* Vitamin D deficiency [E55.9] INVALID FOR* Smoker [F17.200] INVALID FOR* More... Lipoma of buttock [D17.1] INVALID FOR* More... More... Fibromyalgia [M79.7] INVALID FOR* Essential hypertension [I10] INVALID FOR* Chronic obstructive pulmonary disease (HCC) [J4*INVALID FOR* More... Mixed hyperlipidemia [E78.2] INVALID FOR* Gastroesophageal reflux disease without esophag*INVALID FOR* Low back pain [M54.5] INVALID FOR* More... Arthritis of both knees [M17.0] INVALID FOR* More... Pericardial effusion [I31.3] INVALID FOR* More... Carpal tunnel syndrome of left wrist [G56.02] INVALID FOR* More... Obesity (BMI 35.0-39.9 without comorbidity) [E6*INVALID FOR*01/12/2017 Obesity (BMI 30.0-34.9) [E66.9] INVALID FOR* More... Current use of proton pump inhibitor [Z79.899] INVALID FOR* More... Lumbar canal stenosis [M48.061] INVALID FOR* More... Lumbar foraminal stenosis [M99.83] INVALID FOR* Lumbar facet arthropathy (HCC) [M47.816] INVALID FOR* CHF (congestive heart failure) (HCC) [I50.9] INVALID FOR* More... YEN positive [R76.8] INVALID FOR* More... Medicare annual wellness visit, subsequent [Z00*INVALID FOR* More... Well adult exam [Z00.00] INVALID FOR* More... Screening for colon cancer [Z12.11] INVALID FOR* Encounter for screening mammogram for breast ca*INVALID FOR* Elevated hemoglobin (HCC) [D58.2] INVALID FOR* Secondary polycythemia [D75.1] INVALID FOR* More... Wound infection, posttraumatic [T14.8XXA, L08.9]INVALID FOR* More... Heme positive stool [R19.5] INVALID FOR* Pre-op testing [Z01.818] INVALID FOR* More... Discharge planning issues [Z02.9] INVALID FOR* More... Encounter Status:Closed by MALCOLM PURVIS MD on 06/08/18 Chart Close Cosign Required by: Michelle Acharya[] CNOV Observed: 06/08/2018 Status: COMPLETED Source: [place] 8:00 AM [facility] REPOSITORY Office Visit (CARTMN) CRUZ JACOBO ([id number]) 1960 F Date Time Provider Department 06/08/18 8:[address] [facility] CARTMN During your visit today, we recorded the following information about you: Temperature Pulse Respiration Blood pressure 97.9 degrees 68/minute 18/minute 112/70 Weight Height 68 kg 1.626 m Carmen Lee APRN.[employer] 06/08/2018 10:20 AM Signed CONSULT HISTORY and PHYSICAL CARDIOTHORACIC SURGERY Consulting Service: Cardiothoracic Surgery Requesting Provider: [facility] Card Puncher, George Multani on 04/27/18. Opinion/advice regarding: Pre-Op Open Heart Surgery Cardiothoracic Physician: Maykel Moran M.D. NAME: Cruz Jacobo HEIGHT: 162.6 cm WEIGHT: 72.4 kg Intended Procedure: pericardial window REDO: No STS SCORE: unsupported Has this patient been previously evaluated for Open Heart Surgery for this condition? No HPI: (4) This is a 57 year old female who presents in consultation for an opinion regarding treatment options for pericardial effusion. She is currently symptomatic and complains of decreased exercise tolerance, GLYNN with ADLs, and resolving wound RLE. Denies recent febrile illness. Had influenza vaccine this season. Weight is down 10 lbs in past 6 months. Noted that she had a positive stool hemecolt 05/29/18. States her PCP will order a colonoscopy. 15 y o daughter Mally is present at today's visit but will be staying with relatives when her mom has OHS. Pt will be alone. Mom and daughter reside in [place], [place]. Comorbidities include severe COPD pulmonary HTN ? GI bleeding PAST MEDICAL HISTORY: PAST MEDICAL HISTORY Diagnosis Date - YEN positive 12/06/2017 Seeing Rheum - Cancer ([facility]) - CHF (congestive heart failure) ([facility]) 12/06/2017 - COPD (chronic obstructive pulmonary disease) ([facility]) - Fibromyalgia 03/09/2014 - Heme positive stool 05/29/2018 - HTN (hypertension) - Hyperlipidemia 01/30/2014 - Insomnia 09/20/2013 - Lipoma of buttock 01/25/2014 Left glut - Low back pain 05/09/2013 - Lumbar canal stenosis 12/06/2017 Moderate at L2-L3 - Lumbar facet arthropathy 12/06/2017 - Lumbar foraminal stenosis 12/06/2017 - 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 Ruiz, on colchicine - Routine gynecological examination Dr. Arreola - Seasonal allergies - Smoker 01/25/2014 - Substance abuse ([facility]) - Urge incontinence 06/22/2013 - Vitamin D deficiency 01/25/2014 - Wound infection, posttraumatic 03/2018 hit right jurado on car door PAST SURGICAL HISTORY: PAST SURGICAL HISTORY Procedure Laterality Date - FECAL OCCULT BLOOD TEST 12/09/2017 negative - STRESS TEST 08/28/2014 NL - HERLINDA W/WO REMOVAL TUBE OVARY HERLINDA-BSO - TONSILLECTOMY HX - [facility] DELIVERY SCHEDULING ORDER 2002 FAMILY HISTORY: FAMILY HISTORY Problem Relation Age of Onset - Coronary Artery Disease Mother - Diabetes Mother - Headache Mother - Hypertension Mother - COPD Mother Multiple mebers of maternal family. - Diabetes Brother - Stroke Father - Breast Cancer Sister - Cancer Sister Lung. Uncle. FAMILY HISTORY OF CAD: Yes SOCIAL HISTORY: Social History Substance Use Topics - Smoking status: Current Every Day Smoker Packs/day: 2.00 Years: 37.00 Start date: 1976 - Smokeless tobacco: Never Used - Alcohol use No Comment: None since 2011, TO 02/2016. SOCIAL HISTORY OF IVDU: No SOCIAL HISTORY OF Smoking: Yes, 2 ppd SOCIAL HISTORY OF Alcohol Dependency: No MEDICATIONS: Prior to Admission Medications: amLODIPine (NORVASC) 5 mg tablet take 1 tablet by mouth once daily aspirin, enteric coated (ADULT LOW DOSE ASPIRIN) 81 mg EC tablet Take 1 tablet by mouth once daily. atorvastatin (LIPITOR) 10 mg tablet Take 1 tablet by mouth daily at bedtime. baclofen (LIORESAL) 20 mg tablet take 1 tablet by mouth 2 to three times a day for muscle spasm benazepril (LOTENSIN) 20 mg tablet Take 1 tablet by mouth once daily. buPROPion HCl, smoking deter, 150 mg Tb12 take 1 tablet by mouth once daily for 2 weeks then take 1 tablet twice a day Cholecalciferol, Vitamin D3, 2,000 unit cap Take 1 capsule by mouth twice daily. EPINEPHrine (EPIPEN) 0.3 mg/0.3 mL auto-injector Inject 0.3 mL intramuscularly as needed. gabapentin (NEURONTIN) 400 mg capsule Take 3 capsules by mouth daily at bedtime for 180 days. ibuprofen (MOTRIN) 800 mg tablet take 1 tablet by mouth every 8 hours with food if needed for pain mupirocin (BACTROBAN) 2 % ointment Apply 1 application to affected area twice daily. omeprazole (PRILOSEC) 20 mg capsule take 1 tablet by mouth daily 1/2 HOUR BEFORE BREAKFAST oxybutynin ER (DITROPAN XL) 10 mg 24 hr tablet take 1 tablet by mouth once daily - TO REPLACE DETROL PROAIR HFA 90 mcg/actuation inhaler inhale 2 puffs by mouth four times a day rOPINIRole (REQUIP) 0.5 mg tablet take 2 tablets by mouth at bedtime SPIRIVA WITH HANDIHALER 18 mcg inhalation capsule inhale contents of 1 capsule as directed once daily SYMBICORT 160-4.5 mcg/actuation inhaler Inhale 2 Puffs as instructed twice daily. No current hospital medications on file. ALLERGIES: ALLERGIES Allergen Reactions - Bee Sting Swelling, Shortness of Breath - Aleve [Naproxen] Hives COMPLETE REVIEW OF SYSTEMS: (10) Constitutional: Weight loss - Yes, 10 lbs last 6 months HEENT: Negative for frequent or significant headaches, No changes in hearing or vision, no nose bleeds or other nasal problems. Full dentures Resp: Positive for chronic cough, shortness of breath on exertion and shortness of breath limiting daily activity Cardiovascular: Negative for chest pain, leg swelling or palpitations GI: Positive for blood in stools. Noted BRBPR 05/28/18 seen by PCP 05/29/18 hemacolt was positive. Colonoscopy is to be scheduled. : Negative for dysuria, frequency and hematuria and Positive for urge incontinence Endo: Negative for cold or heat intolerance, polyuria, polydipsia and goiter Heme/Lymph: Negative for prolonged bleeding and swollen nodes and Positive for bruises easily Neurologic: No history or headaches, syncope, paralysis, seizures or tremors Integumentary: Negative for lesions, rash, and itching. Additional systems reviewed: Musculoskeletal: Positive for small open area right jurado PHYSICAL EXAM: (8) BP 112/70 (BP Site: Left Arm, BP Position: Sitting) Pulse 68 Temp 36.6 ?C (97.9 ?F) (Oral) Resp 18 Ht 162.6 cm (5' 4) Wt 68 kg (150 lb) SpO2 97% BMI 25.75 kg/m? Constitutional: Well developed, Well nourished and No distress HEENT: Dentures, JVD - yes and Bruits - no Resp: Decreased breath sounds Cardiovascular: Regular rate AND rhythm, S1, S2 normal and Vascular: Pulses - Carotid 2+, Dorsalis pedis 2+ and Posterior tibia 2+ and No varicosities GI: Soft, Non-tender, Bowel sounds present and Non-distended Integumentary: Warm, Dry, No rash on chest, arms or legs and small open area right jurado Musculoskeletal: No deformities Neurological/Psychiatric: Oriented to time, place AND person , Alert and Steady gait Additional systems reviewed: No additional systems reviewed Labs: Recent Labs 06/06/18 0903 WBC 6.47 HB 16.6* HCT 51.2* PLT 162 Recent Labs 06/06/18 0900 INR 1.0 APTT 26.5 Recent Labs 06/06/18 0903 NA 140 K 4.1 CHLOR 100 CO2 27 BUN 12 CREAT 0.81 GLUC 90 Cholesterol, Total 152 04/27/2018 HDL Cholesterol 42 04/27/2018 LDL Cholesterol 90 04/27/2018 DATA: I have personally reviewed the following data: Cardiac Catheterization: 06/06/18 SERGE/TTE: 04/27/18 CXR: 04/06/18 CT 04/06/18 Dental clearance full dentures EK06/06/18 Impression: This is a 57 year old year-old female, who is being evaluated for surgical intervention of pericardial effusion. In consideration for surgery, the patient's acute and chronic medical issues have been evaluated as documented above and reviewed in the electronic medical record. Plan: Patient will be seen today by the surgeon, Dr. Maykel Moran M.D.. If the patient is a surgical candidate according to criteria met, then advise the following: Bactroban, prescriptions and instructions given. Anticipated Discharge Needs: PT/OT/RT evalulation for anticipated Home Care needs These findings will be communicated back to the requesting provider electronically. SIGNATURE:Carmen Lee APRN.[facility] PAGER:[phone] Date of Service: 06/08/18 Time of Service: 9:44 AM Referring Provider: MAYKEL MORAN [[id number]] Allergies As of Date: 06/08/2018 Noted Allergy Reaction BEE STING 05/09/2013 7 - Swelling 12 - Shortness of Breath ALEVE (NAPROXEN) 05/09/2013 4 - Hives Date Reviewed: 06/08/2018 Reviewed by: Malcolm (Res) Degrande - Fully Assessed Primary Visit Diagnosis:Pericardial effusion [I31.3] Other Visit Diagnoses:Wound infection, posttraumatic [T14.8XXA, L08.9] Heme positive stool [R19.5] Pre-op testing [Z01.818] Discharge planning issues [Z02.9] Order(s):mupirocin (BACTROBAN) 2 % ointmentApply 1 application to affected area twice daily.Disp: 22 gRfl: 0 Prescriptions as of 06/08/2018 Sig: AMLODIPINE 5 MG TABLET take 1 tablet by mouth once d* ASPIRIN 81 MG TABLET,DELAYED * Take 1 tablet by mouth once d* ATORVASTATIN 10 MG TABLET Take 1 tablet by mouth daily * BACLOFEN 20 MG TABLET take 1 tablet by mouth 2 to t* BENAZEPRIL 20 MG TABLET Take 1 tablet by mouth once d* BUPROPION HCL 150 MG TABLET,1* take 1 tablet by mouth once d* CHOLECALCIFEROL (VITAMIN D3) * Take 1 capsule by mouth twice* EPINEPHRINE 0.3 MG/0.3 ML INJ* Inject 0.3 mL intramuscularly* GABAPENTIN 400 MG CAPSULE Take 3 capsules by mouth zahra* IBUPROFEN 800 MG TABLET take 1 tablet by mouth every * MUPIROCIN 2 % TOPICAL OINTMENT Apply 1 application to affect* OMEPRAZOLE 20 MG CAPSULE,DIONE* take 1 tablet by mouth daily * OXYBUTYNIN CHLORIDE ER 10 MG * take 1 tablet by mouth once d* PROAIR HFA 90 MCG/ACTUATION A* inhale 2 puffs by mouth four * ROPINIROLE 0.5 MG TABLET take 2 tablets by mouth at be* SPIRIVA WITH HANDIHALER 18 MC* inhale contents of 1 capsule * SYMBICORT 160 MCG-4.5 MCG/ACT* Inhale 2 Puffs as instructed * Problem List As Of Date 06/08/2018 Noted Resolved Seasonal allergies [J30.2] Routine gynecological examination [Z01.419] More... Urge incontinence [N39.41] INVALID FOR* Insomnia [G47.00] INVALID FOR* Vitamin D deficiency [E55.9] INVALID FOR* Smoker [F17.200] INVALID FOR* More... Lipoma of buttock [D17.1] INVALID FOR* More... More... Fibromyalgia [M79.7] INVALID FOR* Essential hypertension [I10] INVALID FOR* Chronic obstructive pulmonary disease (HCC) [J4*INVALID FOR* More... Mixed hyperlipidemia [E78.2] INVALID FOR* Gastroesophageal reflux disease without esophag*INVALID FOR* Low back pain [M54.5] INVALID FOR* More... Arthritis of both knees [M17.0] INVALID FOR* More... Pericardial effusion [I31.3] INVALID FOR* More... Carpal tunnel syndrome of left wrist [G56.02] INVALID FOR* More... Obesity (BMI 35.0-39.9 without comorbidity) [E6*INVALID FOR*01/12/2017 Obesity (BMI 30.0-34.9) [E66.9] INVALID FOR* More... Current use of proton pump inhibitor [Z79.899] INVALID FOR* More... Lumbar canal stenosis [M48.061] INVALID FOR* More... Lumbar foraminal stenosis [M99.83] INVALID FOR* Lumbar facet arthropathy (HCC) [M47.816] INVALID FOR* CHF (congestive heart failure) (HCC) [I50.9] INVALID FOR* More... YEN positive [R76.8] INVALID FOR* More... Medicare annual wellness visit, subsequent [Z00*INVALID FOR* More... Well adult exam [Z00.00] INVALID FOR* More... Screening for colon cancer [Z12.11] INVALID FOR* Encounter for screening mammogram for breast ca*INVALID FOR* Elevated hemoglobin (HCC) [D58.2] INVALID FOR* Secondary polycythemia [D75.1] INVALID FOR* More... Wound infection, posttraumatic [T14.8XXA, L08.9]INVALID FOR* More... Heme positive stool [R19.5] INVALID FOR* Pre-op testing [Z01.818] INVALID FOR* More... Discharge planning issues [Z02.9] INVALID FOR* More... Prescriptions ordered this encounter Disp Refills Start End MUPIROCIN 2 % TOPICAL OINTMENT 22 g 0 06/08/2018 Class: Print RX Route: TOPICAL Sig: Apply 1 application to affected area twice daily. Encounter Status:Closed by CARMEN MARLEY CNP on 06/08/18 CNOV Observed: 06/08/2018 Status: COMPLETED Source: [place] 8:00 AM [facility] REPOSITORY Office Visit (CARTMN) CRUZ JACOBO ([id number]) 1960 F Date Time Provider Department 06/08/18 8:00 AM [facility] CARTMN During your visit today, we recorded the following information about you: Carmen Lee APRN.CNP 06/08/2018 10:24 AM Signed See [facility] Referring Provider: MAYKEL MORAN [[id number]] Allergies As of Date: 06/08/2018 Noted Allergy Reaction BEE STING 05/09/2013 7 - Swelling 12 - Shortness of Breath ALEVE (NAPROXEN) 05/09/2013 4 - Hives Date Reviewed: 06/08/2018 Reviewed by: Malcolm (Res) Degrande - Fully Assessed Primary Visit Diagnosis:Pericardial effusion [I31.3] Prescriptions as of 06/08/2018 Sig: AMLODIPINE 5 MG TABLET take 1 tablet by mouth once d* ASPIRIN 81 MG TABLET,DELAYED * Take 1 tablet by mouth once d* ATORVASTATIN 10 MG TABLET Take 1 tablet by mouth daily * BACLOFEN 20 MG TABLET take 1 tablet by mouth 2 to t* BENAZEPRIL 20 MG TABLET Take 1 tablet by mouth once d* BUPROPION HCL 150 MG TABLET,1* take 1 tablet by mouth once d* CHOLECALCIFEROL (VITAMIN D3) * Take 1 capsule by mouth twice* EPINEPHRINE 0.3 MG/0.3 ML INJ* Inject 0.3 mL intramuscularly* GABAPENTIN 400 MG CAPSULE Take 3 capsules by mouth zahra* IBUPROFEN 800 MG TABLET take 1 tablet by mouth every * OMEPRAZOLE 20 MG CAPSULE,DIONE* take 1 tablet by mouth daily * OXYBUTYNIN CHLORIDE ER 10 MG * take 1 tablet by mouth once d* PROAIR HFA 90 MCG/ACTUATION A* inhale 2 puffs by mouth four * ROPINIROLE 0.5 MG TABLET take 2 tablets by mouth at be* SPIRIVA WITH HANDIHALER 18 MC* inhale contents of 1 capsule * SYMBICORT 160 MCG-4.5 MCG/ACT* Inhale 2 Puffs as instructed * Problem List As Of Date 06/08/2018 Noted Resolved Seasonal allergies [J30.2] Routine gynecological examination [Z01.419] More... Urge incontinence [N39.41] INVALID FOR* Insomnia [G47.00] INVALID FOR* Vitamin D deficiency [E55.9] INVALID FOR* Smoker [F17.200] INVALID FOR* More... Lipoma of buttock [D17.1] INVALID FOR* More... More... Fibromyalgia [M79.7] INVALID FOR* Essential hypertension [I10] INVALID FOR* Chronic obstructive pulmonary disease (HCC) [J4*INVALID FOR* More... Mixed hyperlipidemia [E78.2] INVALID FOR* Gastroesophageal reflux disease without esophag*INVALID FOR* Low back pain [M54.5] INVALID FOR* More... Arthritis of both knees [M17.0] INVALID FOR* More... Pericardial effusion [I31.3] INVALID FOR* More... Carpal tunnel syndrome of left wrist [G56.02] INVALID FOR* More... Obesity (BMI 35.0-39.9 without comorbidity) [E6*INVALID FOR*01/12/2017 Obesity (BMI 30.0-34.9) [E66.9] INVALID FOR* More... Current use of proton pump inhibitor [Z79.899] INVALID FOR* More... Lumbar canal stenosis [M48.061] INVALID FOR* More... Lumbar foraminal stenosis [M99.83] INVALID FOR* Lumbar facet arthropathy (HCC) [M47.816] INVALID FOR* CHF (congestive heart failure) (HCC) [I50.9] INVALID FOR* More... YEN positive [R76.8] INVALID FOR* More... Medicare annual wellness visit, subsequent [Z00*INVALID FOR* More... Well adult exam [Z00.00] INVALID FOR* More... Screening for colon cancer [Z12.11] INVALID FOR* Encounter for screening mammogram for breast ca*INVALID FOR* Elevated hemoglobin (HCC) [D58.2] INVALID FOR* Secondary polycythemia [D75.1] INVALID FOR* More... Wound infection, posttraumatic [T14.8XXA, L08.9]INVALID FOR* More... Heme positive stool [R19.5] INVALID FOR* Pre-op testing [Z01.818] INVALID FOR* More... Discharge planning issues [Z02.9] INVALID FOR* More... Encounter Status:Closed by CARMEN MARLEY [employer] on 06/08/18 CNCNPATED Observed: 06/08/2018 Status: COMPLETED Source: [place] 12:00 AM [facility] REPOSITORY Education (CARTMN) CRUZ JACOBO ([id number]) 1960 F Date Time Provider Department 06/08/18 CARMEN LEE Reason for Visit: Patient Education [91] Progress Notes: Carmen Lee APRN.CNP 06/08/2018 9:47 AM Signed AMBULATORY PATIENT EDUCATION READINESS TO LEARN Cognitive Ability: Alert and oriented Motivation To Learn: Interested Family Support: High - Very involved in pt care Instruction Provided To: Patient AND Family Patient Learns Best By: Multiple Methods Factors Affecting Learning: None Physical Limitations Affecting Learning: None LEARNING RESPONSE Diagnosis: pericardial effusion Education Topic: Pre-Op Open Heart Surgery Instructions Teaching Points: Logistics / Protocols /Complication Prevention Instruction/Supplemental Materials: Cardiac Surgery Information Binder Video Individual Instruction Patient/Family Response: Verbalizes understanding Follow up plan: Patient/Family to call [facility] with any further questions Referral (Recommendation): None Teach completed, topic: bactroban During your visit today, we recorded the following information about you: Allergies As of Date: 06/08/2018 Noted Allergy Reaction BEE STING 05/09/2013 7 - Swelling 12 - Shortness of Breath ALEVE (NAPROXEN) 05/09/2013 4 - Hives Date Reviewed: 06/08/2018 Reviewed by: Malcolm (Res) Farzana - Fully Assessed Prescriptions as of 06/08/2018 Sig: AMLODIPINE 5 MG TABLET take 1 tablet by mouth once d* ASPIRIN 81 MG TABLET,DELAYED * Take 1 tablet by mouth once d* ATORVASTATIN 10 MG TABLET Take 1 tablet by mouth daily * BACLOFEN 20 MG TABLET take 1 tablet by mouth 2 to t* BENAZEPRIL 20 MG TABLET Take 1 tablet by mouth once d* BUPROPION HCL 150 MG TABLET,1* take 1 tablet by mouth once d* CHOLECALCIFEROL (VITAMIN D3) * Take 1 capsule by mouth twice* EPINEPHRINE 0.3 MG/0.3 ML INJ* Inject 0.3 mL intramuscularly* GABAPENTIN 400 MG CAPSULE Take 3 capsules by mouth zahra* IBUPROFEN 800 MG TABLET take 1 tablet by mouth every * MUPIROCIN 2 % TOPICAL OINTMENT Apply 1 application to affect* OMEPRAZOLE 20 MG CAPSULE,DIONE* take 1 tablet by mouth daily * OXYBUTYNIN CHLORIDE ER 10 MG * take 1 tablet by mouth once d* PROAIR HFA 90 MCG/ACTUATION A* inhale 2 puffs by mouth four * ROPINIROLE 0.5 MG TABLET take 2 tablets by mouth at be* SPIRIVA WITH HANDIHALER 18 MC* inhale contents of 1 capsule * SYMBICORT 160 MCG-4.5 MCG/ACT* Inhale 2 Puffs as instructed * Encounter Status:Closed by CARMEN MARLEY CNP on 06/08/18 PROGRESS Observed: 06/07/2018 Status: COMPLETED Source: [place] 2:51 PM [facility] REPOSITORY HNO ID: [id number] Author: Tex Miller Service: (none) Author Type: Physician Type: Progress Notes Filed: 06/07/2018 9:14 PM Note Text: Chief Complaint Patient presents with: Recheck: 6 months HPI Cruz Jacobo is a 57 year old female who presents here today for Chronic Medical Conditions.. Patient with Hx of HTN, Hyperlipidemia, CHF, COPD, smoker, Pericardial effusion as well as those reviewed and addressed below. Patient had an episode of chest pain back in Feb and was in [facility] ER. Was released and has had one episode since. Is set to have a pericardial for the pericardial effusion 06/14/2018. Feeling is this maybe the source of the chest pain. The colchicine was not successful at reducing the effusion. Has been noting hair loss some. No thyroid disease in the family known., Patient's mother lost her hair as she got older. Past medical history, appointments, medications, allergies reviewed. 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 Ruiz, on colchicine - Routine gynecological examination Dr. Arreola - Seasonal allergies - Smoker 01/25/2014 - Substance abuse (HCC) - Urge incontinence 06/22/2013 - Vitamin D deficiency 01/25/2014 Previous Surgical History PAST SURGICAL HISTORY Procedure Laterality Date - FECAL OCCULT BLOOD TEST 12/09/2017 negative - STRESS TEST 08/28/2014 NL - HERLINDA W/WO REMOVAL TUBE OVARY HERLINDA-BSO - TONSILLECTOMY HX - [facility] DELIVERY SCHEDULING ORDER 2002 Family History FAMILY HISTORY Problem Relation Age of Onset - Coronary Artery Disease Mother - Diabetes Mother - Headache Mother - Hypertension Mother - COPD Mother Multiple mebers of maternal family. - Diabetes Brother - Stroke Father - Breast Cancer Sister - Cancer Sister Lung. Uncle. Patient Allergies ALLERGIES Allergen Reactions - Bee Sting Swelling, Shortness of Breath - Aleve [Naproxen] Hives Current Medications Current Outpatient Prescriptions on File Prior to Visit: amLODIPine (NORVASC) 5 mg tablet take 1 tablet by mouth once daily atorvastatin (LIPITOR) 10 mg tablet take 1 tablet by mouth daily at bedtime baclofen (LIORESAL) 20 mg tablet take 1 tablet by mouth 2 to three times a day for muscle spasm benazepril (LOTENSIN) 20 mg tablet Take 1 tablet by mouth once daily. buPROPion HCl, smoking deter, 150 mg Tb12 take 1 tablet by mouth once daily for 2 weeks then take 1 tablet twice a day EPINEPHrine (EPIPEN) 0.3 mg/0.3 mL auto-injector Inject 0.3 mL intramuscularly as needed. gabapentin (NEURONTIN) 400 mg capsule take 3 capsules by mouth at bedtime ibuprofen (MOTRIN) 800 mg tablet take 1 tablet by mouth every 8 hours with food if needed for pain omeprazole (PRILOSEC) 20 mg capsule take 1 tablet by mouth daily 1/2 HOUR BEFORE BREAKFAST oxybutynin ER (DITROPAN XL) 10 mg 24 hr tablet take 1 tablet by mouth once daily - TO REPLACE DETROL PROAIR HFA 90 mcg/actuation inhaler inhale 2 puffs by mouth four times a day rOPINIRole (REQUIP) 0.5 mg tablet take 2 tablets by mouth at bedtime SPIRIVA WITH HANDIHALER 18 mcg inhalation capsule inhale contents of 1 capsule as directed once daily SYMBICORT 160-4.5 mcg/actuation inhaler Inhale 2 Puffs as instructed twice daily. aspirin, enteric coated (ADULT LOW DOSE ASPIRIN) 81 mg EC tablet Take 1 tablet by mouth once daily. No current facility-administered medications on file prior to visit. 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 Drug use: No Social History Narrative Tried Chantix and Nicotine patch. First morning cigarette right after going to the bathroom. Hardest cigarette to give up- morning cigarette. Once get coffee in the morning, it is one after another. Quit during hospitalization with delivery of baby for 1 week. Smoked during . Review of Symptoms REVIEW OF SYSTEMS GENERAL: No weight loss, malaise or fevers HEENT: Negative for No changes in hearing or vision, no nose bleeds or other nasal problems NECK: Negative for lumps, goiter, pain and significant neck swelling RESPIRATORY: Negative for cough, hemoptysis. Has had some increase in her wheezing and shortness of breath and continues to smoke CARDIOVASCULAR: Negative for hypertension, CHF or palpitations. Wearing her support socks. GI: No nausea, vomiting, and No frequent heartburn or reflux symptoms. Occasional diarrhea. PSYCH: mood depends on the day and a lot of times worse the days she was not able to sleep. ENDOCRINE: Negative for cold or heat intolerance, polyuria, polydipsia and goiter NEURO: No history of headaches, syncope, paralysis, seizures or tremors. Headaches have increased with not being able to take the ibuprofen due to upcoming surgery. Skin: Has a skin sore on the right leg and seeing wound care. EXAM: BP 102/60 Pulse 60 Resp 14 Wt 70.3 kg (155 lb) BMI 26.61 kg/m? Last 5 Encounter Wt Readings: Date: Wt: 06/07/2018 70.3 kg (155 lb) 05/27/2018 70.3 kg (155 lb) 04/27/2018 72.4 kg (159 lb 9.6 oz) 03/28/2018 73.5 kg (162 lb) 03/25/2018 73 kg (161 lb) General Appearance: Well appearing, alert, in no acute distress, well-hydrated, well nourished.. Eyes: Anicteric sclera. Pupils are equally round. Extraocular movements are intact. . Neck: Supple, no adenopathy; thyroid symmetric, normal size, no bruits. Lungs: lungs clear to auscultation. No wheezing, rhonchi, rales. Heart: RRR without murmur, gallop, or rubs. No ectopy. Abdomen: Normal abdominal exam, Abdomen soft, non-tender. Bowel sounds normal. No masses, organomegaly. Extremities: No deformities, edema, skin discoloration . Peripheral Pulses: Normal. Neurologic: Gait normal. Reflexes normal and symmetric. Sensation to light touch intact and no crainal nerves deficits.. Health Maintenance List EDWARD/ARB MED PRESCRIBED due on 06/28/2018 MAMMOGRAM due on 12/30/2018 LUNG CANCER SCREENING due on 04/06/2019 ANNUAL PCP TEAM CHRONIC DISEASE VISIT due on 05/27/2019 FECAL OCCULT BLOOD due on 05/29/2019 BP CONTROLLED (<130/80) due on 06/07/2019 PAP EVERY 5 YEARS due on 09/24/2020 HPV EVERY 5 YEARS due on 09/24/2020 DIABETES SCREEN due on 06/06/2021 LIPID SCREEN due on 04/27/2023 DTAP,TDAP,TD(2 - Td) due on 06/04/2026 ONE PNEUMOVAX PRIOR TO AGE 65 Completed INFLUENZA Completed HEPATITIS C SCREENING Completed Data reviewed Component Latest Ref Rng AND Units 04/27/2018 WBC 3.70 - 11.00 k/uL 5.70 RBC 3.90 - 5.20 m/uL 5.20 Hemoglobin 11.5 - 15.5 g/dL 16.8 (H) Hematocrit 36.0 - 46.0 % 50.9 (H) MCV 80.0 - 100.0 fL 97.9 MCH 26.0 - 34.0 pG 32.3 MCHC 30.5 - 36.0 g/dL 33.0 RDW-CV 11.5 - 15.0 % 14.4 Platelet Count 150 - 400 k/uL 149 (L) MPV 9.0 - 12.7 fL 11.6 Neut% % 73.0 Abs Neut (ANC) 1.45 - 7.50 k/uL 4.15 Lymph% % 17.2 Abs Lymph 1.00 - 4.00 k/uL 0.98 (L) [place]% % 7.9 Abs [place] <0.87 k/uL 0.45 Eosin% % 1.4 Abs Eosin <0.46 k/uL 0.08 Baso% % 0.5 Abs Baso <0.11 k/uL 0.03 Nucleated Reds 0 /100 WBC 0.0 Absolute nRBC <0.01 k/uL <0.01 Diff Type Auto Diff Protein, Total 6.3 - 8.0 g/dL 6.7 Albumin 3.9 - 4.9 g/dL 4.0 Calcium 8.5 - 10.2 mg/dL 9.7 Bilirubin, Total 0.2 - 1.3 mg/dL 0.3 Alkaline Phosphatase 34 - 123 U/L 70 AST 13 - 35 U/L 17 Glucose 74 - 99 mg/dL 87 BUN 7 - 21 mg/dL 9 Creatinine 0.58 - 0.96 mg/dL 0.99 (H) Sodium 136 - 144 mmol/L 140 Potassium 3.7 - 5.1 mmol/L 4.4 Chloride 97 - 105 mmol/L 102 CO2 22 - 30 mmol/L 24 Anion Gap 9 - 18 mmol/L 14 ALT 7 - 38 U/L 15 eGFR- >60 eGFR-All Other Races . 58 Cholesterol, Total <200 mg/dL 152 Triglyceride <150 mg/dL 102 HDL Cholesterol >39 mg/dL 42 LDL Cholesterol <100 mg/dL 90 Non HDL Cholesterol <130 mg/dL 110 Fasting Time hrs 0 VLDL Cholesterol <30 mg/dL 20 TC:HDL Ratio <5.10 3.62 LDL:HDL Ratio <2.54 2.14 TSH 0.400 - 5.500 uU/mL 1.770 A/P ASSESSMENT/PLAN: 1. Essential hypertension - ICD9: 401.9, ICD10: I10 (primary diagnosis) - good control - Continue current medication(s) - Recommended regular aerobic exercise. - Recommend home blood pressure monitoring, to bring results in on next visit - Goal of BP <130/80 2. Mixed hyperlipidemia - ICD9: 272.2, ICD10: E78.2 - to be determined upon return of lab results - Continue current medication. - Encouraged following a low fat, low cholesterol diet. - Discussed the benefits of regular aerobic exercise and weight loss. - Encouraged following a low carbohydrate, healthy oil intake diet. 3. Congestive heart failure, unspecified HF chronicity, unspecified heart failure type (HCC) - ICD9: 428.0, ICD10: I50.9 - Clinically stable cont Tx and f/u with cardio 4. Pulmonary emphysema, unspecified emphysema type (HCC) - ICD9: 492.8, ICD10: J43.9 - Clinically stable cont meds and f/u with pulm if symptoms worsen. 5. Gastroesophageal reflux disease without esophagitis - ICD9: 530.81, ICD10: K21.9 - Continue treatment with Prilosec 20 mg QD 6. Vitamin D deficiency - ICD9: 268.9, ICD10: E55.9 - Cont Vit D replacement. 7. Pericardial effusion - ICD9: 423.9, ICD10: I31.3 - To have pericardial window on 06/14/2018 8. Urge incontinence - ICD9: 788.31, ICD10: N39.41 - Cont current Tx. 9. Primary insomnia - ICD9: 307.42, ICD10: F51.01 - Advised to try OTC melatonin. - Also considered adding Remeron but patient wants to hold off on for now., 10. Fibromyalgia - ICD9: 729.1, ICD10: M79.7 - Stable with current treatment. 11. Elevated hemoglobin (HCC) - ICD9: 282.7, ICD10: D58.2 - Secondary to smoking. Pending Prescriptions Disp Refills ATORVASTATIN 10 MG TABLET 90 tablet 1 Sig: Take 1 tablet by mouth daily at bedtime. ANSHU: No BENAZEPRIL 20 MG TABLET 90 tablet 1 Sig: Take 1 tablet by mouth once daily. ANSHU: No GABAPENTIN 400 MG CAPSULE 90 capsule 5 Sig: Take 3 capsules by mouth daily at bedtime for 180 days. ANSHU: No CHOLECALCIFEROL (VITAMIN D3) 2,000 UNIT CAPSULE Sig: Take 1 capsule by mouth twice daily. F/u 6 months WAE CMP, FLP, UA, Vit D, and Mg prior Tex Miller MD CNOV Observed: 06/07/2018 Status: COMPLETED Source: [place] 2:40 PM [facility] REPOSITORY Office Visit (FAMPWS) CRUZ JACOBO ([id number]) 1960 F Date Time Provider Department 06/07/18 2:40 PM TEX MILLER During your visit today, we recorded the following information about you: Pulse Respiration Blood pressure Weight 60/minute 14/minute 102/60 70.3 kg Tex Miller MD 06/07/2018 9:14 PM Signed Chief Complaint Patient presents with: Recheck: 6 months HPI Cruz Jacobo is a 57 year old female who presents here today for Chronic Medical Conditions.. Patient with Hx of HTN, Hyperlipidemia, CHF, COPD, smoker, Pericardial effusion as well as those reviewed and addressed below. Patient had an episode of chest pain back in Feb and was in [facility] ER. Was released and has had one episode since. Is set to have a pericardial for the pericardial effusion 06/14/2018. Feeling is this maybe the source of the chest pain. The colchicine was not successful at reducing the effusion. Has been noting hair loss some. No thyroid disease in the family known., Patient's mother lost her hair as she got older. Past medical history, appointments, medications, allergies reviewed. 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 Ruiz, on colchicine - Routine gynecological examination Dr. Arreola - Seasonal allergies - Smoker 01/25/2014 - Substance abuse (HCC) - Urge incontinence 06/22/2013 - Vitamin D deficiency 01/25/2014 Previous Surgical History PAST SURGICAL HISTORY Procedure Laterality Date - FECAL OCCULT BLOOD TEST 12/09/2017 negative - STRESS TEST 08/28/2014 NL - HERLINDA W/WO REMOVAL TUBE OVARY HERLINDA-BSO - TONSILLECTOMY HX - [facility] DELIVERY SCHEDULING ORDER 2002 Family History FAMILY HISTORY Problem Relation Age of Onset - Coronary Artery Disease Mother - Diabetes Mother - Headache Mother - Hypertension Mother - COPD Mother Multiple mebers of maternal family. - Diabetes Brother - Stroke Father - Breast Cancer Sister - Cancer Sister Lung. Uncle. Patient Allergies ALLERGIES Allergen Reactions - Bee Sting Swelling, Shortness of Breath - Aleve [Naproxen] Hives Current Medications Current Outpatient Prescriptions on File Prior to Visit: amLODIPine (NORVASC) 5 mg tablet take 1 tablet by mouth once daily atorvastatin (LIPITOR) 10 mg tablet take 1 tablet by mouth daily at bedtime baclofen (LIORESAL) 20 mg tablet take 1 tablet by mouth 2 to three times a day for muscle spasm benazepril (LOTENSIN) 20 mg tablet Take 1 tablet by mouth once daily. buPROPion HCl, smoking deter, 150 mg Tb12 take 1 tablet by mouth once daily for 2 weeks then take 1 tablet twice a day EPINEPHrine (EPIPEN) 0.3 mg/0.3 mL auto-injector Inject 0.3 mL intramuscularly as needed. gabapentin (NEURONTIN) 400 mg capsule take 3 capsules by mouth at bedtime ibuprofen (MOTRIN) 800 mg tablet take 1 tablet by mouth every 8 hours with food if needed for pain omeprazole (PRILOSEC) 20 mg capsule take 1 tablet by mouth daily 1/2 HOUR BEFORE BREAKFAST oxybutynin ER (DITROPAN XL) 10 mg 24 hr tablet take 1 tablet by mouth once daily - TO REPLACE DETROL PROAIR HFA 90 mcg/actuation inhaler inhale 2 puffs by mouth four times a day rOPINIRole (REQUIP) 0.5 mg tablet take 2 tablets by mouth at bedtime SPIRIVA WITH HANDIHALER 18 mcg inhalation capsule inhale contents of 1 capsule as directed once daily SYMBICORT 160-4.5 mcg/actuation inhaler Inhale 2 Puffs as instructed twice daily. aspirin, enteric coated (ADULT LOW DOSE ASPIRIN) 81 mg EC tablet Take 1 tablet by mouth once daily. No current facility-administered medications on file prior to visit. 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 Drug use: No Social History Narrative Tried Chantix and Nicotine patch. First morning cigarette right after going to the bathroom. Hardest cigarette to give up- morning cigarette. Once get coffee in the morning, it is one after another. Quit during hospitalization with delivery of baby for 1 week. Smoked during . Review of Symptoms REVIEW OF SYSTEMS GENERAL: No weight loss, malaise or fevers HEENT: Negative for No changes in hearing or vision, no nose bleeds or other nasal problems NECK: Negative for lumps, goiter, pain and significant neck swelling RESPIRATORY: Negative for cough, hemoptysis. Has had some increase in her wheezing and shortness of breath and continues to smoke CARDIOVASCULAR: Negative for hypertension, CHF or palpitations. Wearing her support socks. GI: No nausea, vomiting, and No frequent heartburn or reflux symptoms. Occasional diarrhea. PSYCH: mood depends on the day and a lot of times worse the days she was not able to sleep. ENDOCRINE: Negative for cold or heat intolerance, polyuria, polydipsia and goiter NEURO: No history of headaches, syncope, paralysis, seizures or tremors. Headaches have increased with not being able to take the ibuprofen due to upcoming surgery. Skin: Has a skin sore on the right leg and seeing wound care. EXAM: BP 102/60 Pulse 60 Resp 14 Wt 70.3 kg (155 lb) BMI 26.61 kg/m? Last 5 Encounter Wt Readings: Date: Wt: 06/07/2018 70.3 kg (155 lb) 05/27/2018 70.3 kg (155 lb) 04/27/2018 72.4 kg (159 lb 9.6 oz) 03/28/2018 73.5 kg (162 lb) 03/25/2018 73 kg (161 lb) General Appearance: Well appearing, alert, in no acute distress, well-hydrated, well nourished.. Eyes: Anicteric sclera. Pupils are equally round. Extraocular movements are intact. . Neck: Supple, no adenopathy; thyroid symmetric, normal size, no bruits. Lungs: lungs clear to auscultation. No wheezing, rhonchi, rales. Heart: RRR without murmur, gallop, or rubs. No ectopy. Abdomen: Normal abdominal exam, Abdomen soft, non-tender. Bowel sounds normal. No masses, organomegaly. Extremities: No deformities, edema, skin discoloration . Peripheral Pulses: Normal. Neurologic: Gait normal. Reflexes normal and symmetric. Sensation to light touch intact and no crainal nerves deficits.. Health Maintenance List EDWARD/ARB MED PRESCRIBED due on 06/28/2018 MAMMOGRAM due on 12/30/2018 LUNG CANCER SCREENING due on 04/06/2019 ANNUAL PCP TEAM CHRONIC DISEASE VISIT due on 05/27/2019 FECAL OCCULT BLOOD due on 05/29/2019 BP CONTROLLED (<130/80) due on 06/07/2019 PAP EVERY 5 YEARS due on 09/24/2020 HPV EVERY 5 YEARS due on 09/24/2020 DIABETES SCREEN due on 06/06/2021 LIPID SCREEN due on 04/27/2023 DTAP,TDAP,TD(2 - Td) due on 06/04/2026 ONE PNEUMOVAX PRIOR TO AGE 65 Completed INFLUENZA Completed HEPATITIS C SCREENING Completed Data reviewed Component Latest Ref Rng AND Units 04/27/2018 WBC 3.70 - 11.00 k/uL 5.70 RBC 3.90 - 5.20 m/uL 5.20 Hemoglobin 11.5 - 15.5 g/dL 16.8 (H) Hematocrit 36.0 - 46.0 % 50.9 (H) MCV 80.0 - 100.0 fL 97.9 MCH 26.0 - 34.0 pG 32.3 MCHC 30.5 - 36.0 g/dL 33.0 RDW-CV 11.5 - 15.0 % 14.4 Platelet Count 150 - 400 k/uL 149 (L) MPV 9.0 - 12.7 fL 11.6 Neut% % 73.0 Abs Neut (ANC) 1.45 - 7.50 k/uL 4.15 Lymph% % 17.2 Abs Lymph 1.00 - 4.00 k/uL 0.98 (L) [place]% % 7.9 Abs [place] <0.87 k/uL 0.45 Eosin% % 1.4 Abs Eosin <0.46 k/uL 0.08 Baso% % 0.5 Abs Baso <0.11 k/uL 0.03 Nucleated Reds 0 /100 WBC 0.0 Absolute nRBC <0.01 k/uL <0.01 Diff Type Auto Diff Protein, Total 6.3 - 8.0 g/dL 6.7 Albumin 3.9 - 4.9 g/dL 4.0 Calcium 8.5 - 10.2 mg/dL 9.7 Bilirubin, Total 0.2 - 1.3 mg/dL 0.3 Alkaline Phosphatase 34 - 123 U/L 70 AST 13 - 35 U/L 17 Glucose 74 - 99 mg/dL 87 BUN 7 - 21 mg/dL 9 Creatinine 0.58 - 0.96 mg/dL 0.99 (H) Sodium 136 - 144 mmol/L 140 Potassium 3.7 - 5.1 mmol/L 4.4 Chloride 97 - 105 mmol/L 102 CO2 22 - 30 mmol/L 24 Anion Gap 9 - 18 mmol/L 14 ALT 7 - 38 U/L 15 eGFR- >60 eGFR-All Other Races . 58 Cholesterol, Total <200 mg/dL 152 Triglyceride <150 mg/dL 102 HDL Cholesterol >39 mg/dL 42 LDL Cholesterol <100 mg/dL 90 Non HDL Cholesterol <130 mg/dL 110 Fasting Time hrs 0 VLDL Cholesterol <30 mg/dL 20 TC:HDL Ratio <5.10 3.62 LDL:HDL Ratio <2.54 2.14 TSH 0.400 - 5.500 uU/mL 1.770 A/P ASSESSMENT/PLAN: 1. Essential hypertension - ICD9: 401.9, ICD10: I10 (primary diagnosis) - good control - Continue current medication(s) - Recommended regular aerobic exercise. - Recommend home blood pressure monitoring, to bring results in on next visit - Goal of BP <130/80 2. Mixed hyperlipidemia - ICD9: 272.2, ICD10: E78.2 - to be determined upon return of lab results - Continue current medication. - Encouraged following a low fat, low cholesterol diet. - Discussed the benefits of regular aerobic exercise and weight loss. - Encouraged following a low carbohydrate, healthy oil intake diet. 3. Congestive heart failure, unspecified HF chronicity, unspecified heart failure type (HCC) - ICD9: 428.0, ICD10: I50.9 - Clinically stable cont Tx and f/u with cardio 4. Pulmonary emphysema, unspecified emphysema type (HCC) - ICD9: 492.8, ICD10: J43.9 - Clinically stable cont meds and f/u with pulm if symptoms worsen. 5. Gastroesophageal reflux disease without esophagitis - ICD9: 530.81, ICD10: K21.9 - Continue treatment with Prilosec 20 mg QD 6. Vitamin D deficiency - ICD9: 268.9, ICD10: E55.9 - Cont Vit D replacement. 7. Pericardial effusion - ICD9: 423.9, ICD10: I31.3 - To have pericardial window on 06/14/2018 8. Urge incontinence - ICD9: 788.31, ICD10: N39.41 - Cont current Tx. 9. Primary insomnia - ICD9: 307.42, ICD10: F51.01 - Advised to try OTC melatonin. - Also considered adding Remeron but patient wants to hold off on for now., 10. Fibromyalgia - ICD9: 729.1, ICD10: M79.7 - Stable with current treatment. 11. Elevated hemoglobin (HCC) - ICD9: 282.7, ICD10: D58.2 - Secondary to smoking. Pending Prescriptions Disp Refills ATORVASTATIN 10 MG TABLET 90 tablet 1 Sig: Take 1 tablet by mouth daily at bedtime. ANSHU: No BENAZEPRIL 20 MG TABLET 90 tablet 1 Sig: Take 1 tablet by mouth once daily. ANSHU: No GABAPENTIN 400 MG CAPSULE 90 capsule 5 Sig: Take 3 capsules by mouth daily at bedtime for 180 days. ANSHU: No CHOLECALCIFEROL (VITAMIN D3) 2,000 UNIT CAPSULE Sig: Take 1 capsule by mouth twice daily. F/u 6 months WAE CMP, FLP, UA, Vit D, and Mg prior MD Tex Bonds MD 06/07/2018 3:25 PM Signed Please get fasting labs and urine test on or after 11/25/2018 prior to next visit. Referring Provider: TEX MILLER [[id number]] Allergies As of Date: 06/07/2018 Noted Allergy Reaction BEE STING 05/09/2013 7 - Swelling 12 - Shortness of Breath ALEVE (NAPROXEN) 05/09/2013 4 - Hives Date Reviewed: 06/07/2018 Reviewed by: Tex Miller - Fully Assessed Reason for Visit: Recheck [92] Cmt: 6 months Primary Visit Diagnosis:Essential hypertension [I10] Other Visit Diagnoses:Mixed hyperlipidemia [E78.2] Congestive heart failure, unspecified HF chronicity, unspecified heart failure type (HCC) [I50.9] Pulmonary emphysema, unspecified emphysema type (HCC) [J43.9] Gastroesophageal reflux disease without esophagitis [K21.9] Vitamin D deficiency [E55.9] Pericardial effusion [I31.3] Urge incontinence [N39.41] Primary insomnia [F51.01] Fibromyalgia [M79.7] Elevated hemoglobin (HCC) [D58.2] Current use of proton pump inhibitor [Z79.899] Order(s):atorvastatin (LIPITOR) 10 mg tabletTake 1 tablet by mouth daily at bedtime.Disp: 90 tabletRfl: 1 benazepril (LOTENSIN) 20 mg tabletTake 1 tablet by mouth once daily.Disp: 90 tabletRfl: 1 gabapentin (NEURONTIN) 400 mg capsuleTake 3 capsules by mouth daily at bedtime for 180 days.Disp: 90 capsuleRfl: 5 Cholecalciferol, Vitamin D3, 2,000 unit capTake 1 capsule by mouth twice daily.Disp: Rfl: VITAMIN D 25 HYDROXY [SQVITD] Order #: [id number] FUTURE MAGNESIUM BLD [SQMG1] Order #: [id number] FUTURE LIPID PANEL, NONFASTING [SQLIPNF] Order #: [id number] FUTURE COMP METABOLIC PANEL [SQCMP] Order #: [id number] FUTURE URINALYSIS WITH MICROSCOPIC [SQUAWMIC] Order #: [id number] FUTURE CBC + DIFF [SQCBCDIF] Order #: [id number] FUTURE Prescriptions as of 06/07/2018 Sig: AMLODIPINE 5 MG TABLET take 1 tablet by mouth once d* ATORVASTATIN 10 MG TABLET Take 1 tablet by mouth daily * BACLOFEN 20 MG TABLET take 1 tablet by mouth 2 to t* BENAZEPRIL 20 MG TABLET Take 1 tablet by mouth once d* BUPROPION HCL 150 MG TABLET,1* take 1 tablet by mouth once d* EPINEPHRINE 0.3 MG/0.3 ML INJ* Inject 0.3 mL intramuscularly* GABAPENTIN 400 MG CAPSULE Take 3 capsules by mouth zahra* IBUPROFEN 800 MG TABLET take 1 tablet by mouth every * OMEPRAZOLE 20 MG CAPSULE,DIONE* take 1 tablet by mouth daily * OXYBUTYNIN CHLORIDE ER 10 MG * take 1 tablet by mouth once d* PROAIR HFA 90 MCG/ACTUATION A* inhale 2 puffs by mouth four * ROPINIROLE 0.5 MG TABLET take 2 tablets by mouth at be* SPIRIVA WITH HANDIHALER 18 MC* inhale contents of 1 capsule * SYMBICORT 160 MCG-4.5 MCG/ACT* Inhale 2 Puffs as instructed * ASPIRIN 81 MG TABLET,DELAYED * Take 1 tablet by mouth once d* CHOLECALCIFEROL (VITAMIN D3) * Take 1 capsule by mouth twice* Problem List As Of Date 06/07/2018 Noted Resolved Seasonal allergies [J30.2] Routine gynecological examination [Z01.419] More... Urge incontinence [N39.41] INVALID FOR* Insomnia [G47.00] INVALID FOR* Vitamin D deficiency [E55.9] INVALID FOR* Smoker [F17.200] INVALID FOR* More... Lipoma of buttock [D17.1] INVALID FOR* More... More... Fibromyalgia [M79.7] INVALID FOR* Essential hypertension [I10] INVALID FOR* Chronic obstructive pulmonary disease (HCC) [J4*INVALID FOR* More... Mixed hyperlipidemia [E78.2] INVALID FOR* Gastroesophageal reflux disease without esophag*INVALID FOR* Low back pain [M54.5] INVALID FOR* More... Arthritis of both knees [M17.0] INVALID FOR* More... Pericardial effusion [I31.3] INVALID FOR* More... Carpal tunnel syndrome of left wrist [G56.02] INVALID FOR* More... Obesity (BMI 35.0-39.9 without comorbidity) [E6*INVALID FOR*01/12/2017 Obesity (BMI 30.0-34.9) [E66.9] INVALID FOR* More... Current use of proton pump inhibitor [Z79.899] INVALID FOR* More... Lumbar canal stenosis [M48.061] INVALID FOR* More... Lumbar foraminal stenosis [M99.83] INVALID FOR* Lumbar facet arthropathy (HCC) [M47.816] INVALID FOR* CHF (congestive heart failure) (HCC) [I50.9] INVALID FOR* More... YEN positive [R76.8] INVALID FOR* More... Medicare annual wellness visit, subsequent [Z00*INVALID FOR* More... Well adult exam [Z00.00] INVALID FOR* More... Screening for colon cancer [Z12.11] INVALID FOR* Encounter for screening mammogram for breast ca*INVALID FOR* Elevated hemoglobin (HCC) [D58.2] INVALID FOR* Secondary polycythemia [D75.1] INVALID FOR* More... Other instructions from your clinician: Please get fasting labs and urine test on or after 11/25/2018 prior to next visit. Prescriptions ordered this encounter Disp Refills Start End ATORVASTATIN 10 MG TABLET 90 t* 1 06/07/2018 Route: ORAL Sig: Take 1 tablet by mouth daily at bedtime. BENAZEPRIL 20 MG TABLET 90 t* 1 06/07/2018 Route: ORAL Sig: Take 1 tablet by mouth once daily. GABAPENTIN 400 MG CAPSULE 90 c* 5 06/07/2018 12/04/2018 Route: ORAL Sig: Take 3 capsules by mouth daily at bedtime for 180 days. CHOLECALCIFEROL (VITAMIN D3) 2,000 U* 06/07/2018 Class: OTC Route: ORAL Sig: Take 1 capsule by mouth twice daily. Medications Discontinued During This Encounter atorvastatin (LIPITOR) 10 mg tablet 180 * 1 11/24/2017 06/07/2018 Route: ORAL Sig: take 1 tablet by mouth daily at bedtime Disc: Reason for discontinue is not on file. benazepril (LOTENSIN) 20 mg tablet 90 t* 4 06/07/2017 06/07/2018 Route: ORAL Sig: Take 1 tablet by mouth once daily. Disc: Reason for discontinue is not on file. gabapentin (NEURONTIN) 400 mg capsule 90 c* 3 03/24/2018 06/07/2018 Sig: take 3 capsules by mouth at bedtime Disc: Reason for discontinue is not on file. Disposition: Return in about 6 months (around 12/06/2018) for complete PE. Follow-up and Disposition History Recorded Encounter Status:Closed by TEX MILLER on 06/07/18 ENTERIC BACT PNL PCR Collected: 06/07/2018 Status: F Source: [facility] REPOSITORY TYPE CODE TESTS RESULT OUT OF REFERENCE UNITS RANGE LAB PCRSHG Shigella/EIEC Not Detected DNA LAB PCRCMP Campy jejun/coli DNA Not Detected LAB PCRSTX Shiga toxin gene(s) Not Detected LAB PCRSAL Salmonella spp. Not Detected DNA Performed By: #### STLPCR #### [facility] [address] [place], [place] [address] ECG COMPLETE W Observed: 06/06/2018 Status: F Source: [facility] INTERPRETATION 11:01 AM [facility] REPOSITORY NAME : CRUZ JACOBO PID : [id number] : 1960 Gender : Female Race : ORD : [id number] Procedure Date : Jun 06 2018 11:01:20 Edit Date : Jun 09 2018 11:53:18 Diagnosis:NORMAL SINUS RHYTHM RIGHT AXIS DEVIATION RIGHT VENTRICULAR HYPERTROPHY ABNORMAL ECG Confirmed by FLAVIO HAN M.D. ([id number]) on 06/09/2018 11:29:53 AM Ventricular Rate : 93 BPM Atrial Rate : 93 BPM P-R Interval : 150 ms QRS Duration : 84 ms Q-T Interval : 364 ms QTC Calculation(Bezet) : 452 ms P [place] : 67 degrees R [place] : 123 degrees T [place] : 65 degrees Test Reason : 921 Location : 321 : J21 J2-1 Overread By : FLAVIO HAN M.D. Edited By : FLAVIO HAN M.D. Referred By : , Acquired by : [id number], URINALYSIS Collected: 06/06/2018 Status: F Source: [facility] 9:24 AM [facility] REPOSITORY TYPE CODE TESTS RESULT OUT OF REFERENCE UNITS RANGE LAB UCOL Yellow Color Yellow LAB [facility] Clear Clarity Clear LAB UGLUC Negative mg/dL Glucose, Urine Negative LAB UBIL Negative Bilirubin, Urine Negative LAB UKET Negative Ketones, Urine Negative LAB USPG 1.005-1.030 Specific [place], Ur 1.006 LAB UHGB Negative Hemoglobin/Blood, Negative Ur LAB UPH 4.5-8.0 pH 6.0 LAB UPROT Negative mg/dL Protein, Urine Negative LAB UUROB Normal Urobilinogen Normal LAB UNITR Negative Nitrites Negative LAB ULKEST Negative Leukest Negative LAB UCOM Comments SEE COMMENT Result Comment: Microscopic not warranted LAB UMCOM Urine SEE Dayday Comment COMMENT Result Comment: N/A Performed By: #### UA #### [facility] [address] [place], [place] [address] CONFIRM BLOOD TYPE Collected: 06/06/2018 Status: F Source: [facility] 9:05 [facility] REPOSITORY TYPE CODE TESTS RESULT OUT OF REFERENCE UNITS RANGE LAB %ABR B ABO/RH(D) POSITIVE Performed By: #### CONABO #### [facility] [address] [place], [place] [address] CBC AND DIFFERENTIAL Collected: 06/06/2018 Status: F Source: [facility] 9:03 [facility] REPOSITORY TYPE CODE TESTS RESULT OUT OF REFERENCE UNITS RANGE LAB WBC 3.70-11.00 k/uL WBC 6.47 LAB RBC 3.90-5.20 m/uL RBC 5.16 LAB HGB 11.5-15.5 g/dL High Hemoglobin 16.6 LAB HCT 36.0-46.0 % High Hematocrit 51.2 LAB MCV 80.0-100.0 fL MCV 99.2 LAB MCH 26.0-34.0 pG MCH 32.2 LAB MCHC 30.5-36.0 g/dL MCHC 32.4 LAB RDWCV 11.5-15.0 % RDW-CV 13.7 LAB PLTCT 150-400 k/uL Platelet Count 162 LAB MPV 9.0-12.7 fL MPV 11.1 LAB ANEUT % Neut% 73.0 LAB AANEUT 1.45-7.50 k/uL Abs Neut 4.71 LAB ALYMP % Lymph% 16.2 LAB AALYMP 1.00-4.00 k/uL Abs Lymph 1.05 LAB AMONO % [place]% 8.8 LAB AAMONO <0.87 k/uL Abs [place] 0.57 LAB AEOS % Eosin% 1.4 LAB AAEOS <0.46 k/uL Abs Eosin 0.09 LAB ABASO % Baso% 0.6 LAB AABASO <0.11 k/uL Abs Baso 0.04 LAB AUNRBC 0 /100 WBC NRBCs 0.0 LAB ABNRBC <0.01 k/uL Absolute nRBC <0.01 LAB DTYP DTYPE Auto Diff Performed By: #### CBCDIF, BMP #### [facility] [address] [place], [place] [address] BASIC METABOLIC PANL Collected: 06/06/2018 Status: F Source: [facility] 9:03 AM [facility] REPOSITORY TYPE CODE TESTS RESULT OUT OF REFERENCE UNITS RANGE LAB GLU 74-99 mg/dL Glucose 90 Result Comment: The [place] Diabetes Association (ADA) provides guidance for cutoff values for fasting glucose and random glucose. The ADA defines fasting as no caloric intake for at least 8 hours. Fas ting plasma glucose results between 100 to 125 mg/dL indicate increased risk for diabetes (prediabetes). Fasting plasma glucose results greater than or equal to 126 mg/dL meet the criteria for diagnosis of diabetes. In the absence of unequivocal hyperglycemia, results should be confirmed by repeat testing. In a patient with classic symptoms of hyperglycemia or hyperglycemic crisis, random plasma glucose results greater than or equal to 200 mg/dL meet the criteria for diagnosis of diabetes. Reference: Standards of Medical Care in Diabetes 2016, [place] [employer] Association. Diabetes Care. 2016.39(Suppl 1). LAB BUN 7-21 mg/dL BUN 12 LAB CRET 0.58-0.96 mg/dL Creatinine 0.81 LAB NA 136-144 mmol/L Sodium 140 LAB K 3.7-5.1 mmol/L Potassium 4.1 LAB CL 97-105 mmol/L Chloride 100 LAB CO2 22-30 mmol/L CO2 27 LAB AGAP 9-18 mmol/L Anion Gap 13 LAB CA 8.5-10.2 mg/dL Calcium, Total 9.6 LAB GFRAA eGFR- Amer. >60 LAB GFRNAA . eGFR-All Other Races >60 Result Comment: eGFR (Estimated GFR) Units of measure: mL/min/1.73 meters squared eGFR is derived from the reexpressed MDRD Study equation using the following parameters: serum creatinine, age, gender and race. The creatinine assay has been calibrated to be traceable to IDMS. An eGFR <60 mL/min/1.73m2 for >3 months is consistent with chronic kidney disease. Refer to KDOQI guidelines for clinical interpretation. In patients with unstable renal function, e.g. those with acute kidney injury, the eGFR may not accurately reflect actual GFR. Performed By: #### CBCDIF, BMP #### [facility] [address] [place], [place] [address] PROTIME Collected: 06/06/2018 Status: F Source: [facility] 9:00 AM [facility] REPOSITORY TYPE CODE TESTS RESULT OUT OF RANGE REFERENCE UNITS LAB PSEC 9.7-13.0 sec PT Sec 10.8 LAB INR 0.9-1.3 PT INR 1.0 Result Comment: Vitamin K Antagonist (VKA) Therapeutic Range: INR 2 to 3 (Target INR of 2.5) Note: For patients treated with VKA drugs, such as warfarin, the [place] [employer] 2012 Guideline recommends a therapeutic INR range of 2 to 3 (target INR of 2.5). This recommendation includes high-risk patients with antiphospholipid syndrome with previous arterial or venous thromboembolism, current-generation mechanical or bioprosthetic aortic heart valve replacement. Note: Patients with mechanical aortic valve replacement and additional risk factors for thromboembolic events (atrial fibrillation, previous thromboembolism, LV dysfunction, hypercoagulable conditions) or an older generation mechanical AVR (i.e., ball in-Cage) or any mechanical MVR should have a INR therapeutic range of 2.5 to 3.5 (target INR of 3). Jackie GH, et al. Chest 2012, 141:7S-47S Daphne RA, et al. [facility] 2017, 70: 252-289 Performed By: #### PT, PTT, LD6 #### [facility] [address] [place], [place] [address] APTT Collected: 06/06/2018 Status: F Source: [facility] 9:00 AM [facility] REPOSITORY TYPE CODE TESTS RESULT OUT OF RANGE REFERENCE UNITS LAB APTT 23.0-32.4 sec APTT 26.5 Result Comment: Unfractionated Heparin Therapeutic Ranges: Standard Heparin Nomogram: 53 to 78 seconds (anti-Xa level of 0.3 to 0.7 U/ml) Low Dose/ACS Nomogram: 49 to 67 seconds (anti-Xa level of 0.2 to 0.5 U/ml) Stroke Treatment Nomogram: 49 to 67 seconds (anti-Xa level of 0.2 to 0.5 U/ml) Note: The APTT therapeutic range has been determined for the current lot of laboratory APTT reagent in use throughout the [facility]. Performed By: #### PT, PTT, LD6 #### [facility] [address] [place], [place] [address] LD Collected: 06/06/2018 Status: F Source: [facility] 9:00 AM MAIN [place] REPOSITORY TYPE CODE TESTS RESULT OUT OF RANGE REFERENCE UNITS LAB LD 135-214 U/L LD 183 Performed By: #### PT, PTT, LD6 #### [facility] [address] [place], [place] [address] TYPE AND SCR (30D) Collected: 06/06/2018 Status: F Source: [facility] 9:00 AM [facility] REPOSITORY TYPE CODE TESTS RESULT OUT OF REFERENCE UNITS RANGE LAB %ABR B ABO/RH(D) POSITIVE LAB % Antibody NEG Screen Performed By: #### [id number] #### [facility] [address] [place], [place] [address] PROGRESS Observed: 05/31/2018 Status: COMPLETED Source: [facility] 12:46 PM [facility] REPOSITORY HNO ID: [id number] Author: Juan (Health Relish Blender) Greg Service: (none) Author Type: Health Educator Type: Progress Notes Filed: 05/31/2018 12:49 PM Note Text: [facility] WELLNESS ECOACHING PATIENT NAME: Cruz Lida Donnell AGE: [age] year old SEX: female Update Type: Progress: Quartely Coaching Program: Tobacco Cessation Coaching Status: Active Email Engagement from Patient: 2-3x per month Increase physical activity: walk 30 min per day Decrease tobacco use: with bupropion only Progress towards Goals: Stagnant / maintained. Cruz was scheduled to quit earlier in the last month but lapsed and was unable to do so. Attempted to use a portion of a nicotine patch but became nauseated once used. Discussed dropping dosage or abstaining from patches altogether. New quit date is June 17. Juan Garza, Health Relish Blender May 31, 2018 12:47 PM HOSP Observed: 05/31/2018 Status: COMPLETED Source: [facility] 12:00 AM [facility] REPOSITORY Patient Update (WIQ) CRUZ JACOBO ([id number]) 1960 F Date Time Provider Department 05/31/18 JUAN GARZA (HEALTH DATA PROCESSING SUPERVISOR)ANDREAS During your visit today, we recorded the following information about you: Juan Garza Health Relish Blender 05/31/2018 12:49 PM Signed [facility] WELLNESS ECOACHING PATIENT NAME: Cruz Jacobo AGE: [age] year old SEX: female Update Type: Progress: Quartely Coaching Program: Tobacco Cessation Coaching Status: Active Email Engagement from Patient: 2-3x per month Increase physical activity: walk 30 min per day Decrease tobacco use: with bupropion only Progress towards Goals: Stagnant / maintained. Cruz was scheduled to quit earlier in the last month but lapsed and was unable to do so. Attempted to use a portion of a nicotine patch but became nauseated once used. Discussed dropping dosage or abstaining from patches altogether. New quit date is June 17. Juan Garza Health Relish Blender May 31, 2018 12:47 PM Allergies As of Date: 05/31/2018 Noted Allergy Reaction BEE STING 05/09/2013 7 - Swelling 12 - Shortness of Breath ALEVE (NAPROXEN) 05/09/2013 4 - Hives Date Reviewed: 05/27/2018 Reviewed by: Kavya Leonard) MONTSE Chang - Fully Assessed Reason for Visit: Patient Education [91] Cmt: Nicole Update Prescriptions as of 05/31/2018 Sig: OXYBUTYNIN CHLORIDE ER 10 MG * take 1 tablet by mouth once d* SPIRIVA WITH HANDIHALER 18 MC* inhale contents of 1 capsule * PROAIR HFA 90 MCG/ACTUATION A* inhale 2 puffs by mouth four * BUPROPION HCL 150 MG TABLET,1* take 1 tablet by mouth once d* GABAPENTIN 400 MG CAPSULE take 3 capsules by mouth at b* OMEPRAZOLE 20 MG CAPSULE,DIONE* take 1 tablet by mouth daily * ROPINIROLE 0.5 MG TABLET take 2 tablets by mouth at be* BACLOFEN 20 MG TABLET take 1 tablet by mouth 2 to t* IBUPROFEN 800 MG TABLET take 1 tablet by mouth every * SYMBICORT 160 MCG-4.5 MCG/ACT* Inhale 2 Puffs as instructed * EPINEPHRINE 0.3 MG/0.3 ML INJ* Inject 0.3 mL intramuscularly* ATORVASTATIN 10 MG TABLET take 1 tablet by mouth daily * AMLODIPINE 5 MG TABLET take 1 tablet by mouth once d* BENAZEPRIL 20 MG TABLET Take 1 tablet by mouth once d* ASPIRIN 81 MG TABLET,DELAYED * Take 1 tablet by mouth once d* Problem List As Of Date 05/31/2018 Noted Resolved Seasonal allergies [J30.2] Routine gynecological examination [Z01.419] More... Urge incontinence [N39.41] INVALID FOR* Insomnia [G47.00] INVALID FOR* Vitamin D deficiency [E55.9] INVALID FOR* Smoker [F17.200] INVALID FOR* More... Lipoma of buttock [D17.1] INVALID FOR* More... More... Fibromyalgia [M79.7] INVALID FOR* Essential hypertension [I10] INVALID FOR* Chronic obstructive pulmonary disease (HCC) [J4*INVALID FOR* More... Mixed hyperlipidemia [E78.2] INVALID FOR* Gastroesophageal reflux disease without esophag*INVALID FOR* Low back pain [M54.5] INVALID FOR* More... Arthritis of both knees [M17.0] INVALID FOR* More... Pericardial effusion [I31.3] INVALID FOR* More... Carpal tunnel syndrome of left wrist [G56.02] INVALID FOR* More... Obesity (BMI 35.0-39.9 without comorbidity) [E6*INVALID FOR*01/12/2017 Obesity (BMI 30.0-34.9) [E66.9] INVALID FOR* More... Current use of proton pump inhibitor [Z79.899] INVALID FOR* More... Lumbar canal stenosis [M48.061] INVALID FOR* More... Lumbar foraminal stenosis [M99.83] INVALID FOR* Lumbar facet arthropathy (HCC) [M47.816] INVALID FOR* CHF (congestive heart failure) (HCC) [I50.9] INVALID FOR* More... YEN positive [R76.8] INVALID FOR* More... Medicare annual wellness visit, subsequent [Z00*INVALID FOR* More... Well adult exam [Z00.00] INVALID FOR* More... Screening for colon cancer [Z12.11] INVALID FOR* Encounter for screening mammogram for breast ca*INVALID FOR* Elevated hemoglobin (HCC) [D58.2] INVALID FOR* Secondary polycythemia [D75.1] INVALID FOR* More... Follow-up and Disposition History Recorded Encounter Status:Closed by GREG DUEÑAS JUAN on 05/31/18 Observed: 05/30/2018 Status: F Source: [facility] FECAL LACTOFERRIN 7:30 AM [facility] REPOSITORY Sp. Request/Comment: - Specimen received in sterile container. Test Result - Positive for lactoferrin, which may indicate presence of fecal white blood cells Performed By: #### STLWBC #### [place] [address] Observed: 05/30/2018 Status: F Source: [facility] HPYLORI AG EIA STOOL 7:30 AM [facility] REPOSITORY Sp. Request/Comment: - Specimen received in sterile container. Test Result - Negative for Helicobacter pylori Antigen by EIA. Performed By: #### HPYLAG #### [place] [address] Observed: 05/30/2018 Status: F Source: [facility] OVA AND PARASITE SCR 7:30 AM [facility] REPOSITORY Sp. Request/Comment: - Specimen received in Ova and Parasite Kit. Culture Result - Negative for Giardia lamblia and Cryptosporidium species by EIA. Performed By: #### OVAPSC #### [place] [address] FECAL OCCULT BLD Collected: 05/29/2018 Status: F Source: [facility] TST 8:00 AM [facility] REPOSITORY TYPE CODE TESTS RESULT OUT OF RANGE REFERENCE UNITS LAB IFO Negative Abnormal Alert Immuno Positive FOB Result Comment: This test was developed and its performance characteristics determined by [facility]frain Cast[facility] [place] ([facility] It has not been cleared or approved by the FDA. [facility] is regulated under CLIA as qualified to perform high-complexity testing. This test is used for clinical purposes. It should not be regarded as investigational or for research. Performed By: #### IFOBT #### [place] [address] PROGRESS Observed: 05/27/2018 Status: COMPLETED Source: [facility] 10:28 AM [facility] REPOSITORY HNO ID: [id number] Author: Evette Sharpe Service: (none) Author Type: Nurse Practitioner Type: Progress Notes Filed: 05/27/2018 10:56 AM Note Text: 05/27/2018 Patient presents with: Diarrhea: interm. last bowel movement 4am , dark stool SUBJECTIVE: This is a 57 year old that is here today for 2 weeks of nausea, no abd pain, on and off diarrhea- water and dark with some incontinent episodes otherwise soft, but not formed. Eating normally- she states that she eats about twice a day on a normal day. Drinks water throughout the day, but may not be enough, coffee- 3 cups a day. She denies any blood in stool. Denies hemorrhoids, She states that she sometimes feels that she is straining, but no hard stools, always soft or watery. Denies bloating. + flatulence. Denies fever or chills. GERD controlled on prilosec. She states that she found something in pad that looks like a worm. She states that she does have a new puppy that has not been wormed yet. She denies any travel. Denies any close contacts with similar symptoms. Daughter had one day of diarrhea, but she got better. She was treated with antibiotics on March for skin infection- she continues to follow with wound care. Concerned because she is having a cardiac procedure on 06/06/18 and 06/14/18 at [facility]. She states that she has not noticed a change in her CHF or SOB related to it since the diarrhea started. She denies edema, CP, palpitations, dizziness. 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 Ruiz, on colchicine - Routine gynecological examination Dr. Arreola - Seasonal allergies - Smoker 01/25/2014 - Substance abuse (HCC) - Urge incontinence 06/22/2013 - Vitamin D deficiency 01/25/2014 ALLERGIES Bee Sting; Aleve [Naproxen] MEDICATIONS Current Outpatient Prescriptions: oxybutynin ER (DITROPAN XL) 10 mg 24 hr tablet take 1 tablet by mouth once daily - TO REPLACE DETROL SPIRIVA WITH HANDIHALER 18 mcg inhalation capsule inhale contents of 1 capsule as directed once daily PROAIR HFA 90 mcg/actuation inhaler inhale 2 puffs by mouth four times a day buPROPion HCl, smoking deter, 150 mg Tb12 take 1 tablet by mouth once daily for 2 weeks then take 1 tablet twice a day gabapentin (NEURONTIN) 400 mg capsule take 3 capsules by mouth at bedtime omeprazole (PRILOSEC) 20 mg capsule take 1 tablet by mouth daily 1/2 HOUR BEFORE BREAKFAST rOPINIRole (REQUIP) 0.5 mg tablet take 2 tablets by mouth at bedtime baclofen (LIORESAL) 20 mg tablet take 1 tablet by mouth 2 to three times a day for muscle spasm colchicine 0.6 mg tablet take 1 tablet by mouth twice a day ibuprofen (MOTRIN) 800 mg tablet take 1 tablet by mouth every 8 hours with food if needed for pain SYMBICORT 160-4.5 mcg/actuation inhaler Inhale 2 Puffs as instructed twice daily. EPINEPHrine (EPIPEN) 0.3 mg/0.3 mL auto-injector Inject 0.3 mL intramuscularly as needed. atorvastatin (LIPITOR) 10 mg tablet take 1 tablet by mouth daily at bedtime amLODIPine (NORVASC) 5 mg tablet take 1 tablet by mouth once daily benazepril (LOTENSIN) 20 mg tablet Take 1 tablet by mouth once daily. aspirin, enteric coated (ADULT LOW DOSE ASPIRIN) 81 mg EC tablet Take 1 tablet by mouth once daily. No current facility-administered medications for this visit. Medications and allergies reviewed by this provider. SOCIAL HISTORY Social History Marital status: Spouse name: Years of education: Number of children: Occupational History Occupation Employer Comment [employer], last done 2011 Social History Main Topics Smoking status: Current Every Day Smoker Packs/day: 2.00 Years: 37.00 Start date: 1976 Smokeless tobacco: Never Used Alcohol use: No Comment: None since 2011, TO 02/2016. Drug use: No Social History Narrative Tried Chantix and Nicotine patch. First morning cigarette right after going to the bathroom. Hardest cigarette to give up- morning cigarette. Once get coffee in the morning, it is one after another. Quit during hospitalization with delivery of baby for 1 week. Smoked during . REVIEW OF SYSTEMS See HPI OBJECTIVE: BP 112/70 Pulse 111 Temp 36.5 ?C (97.7 ?F) Resp 20 Wt 70.3 kg (155 lb) SpO2 92% BMI 26.61 kg/m? . Vital signs reviewed by this provider. PHYSICAL EXAMINATION: General appearance: Well appearing, alert, in no acute distress, well-hydrated, well nourished. Skin: Skin color, texture, turgor normal, no suspicious rashes or lesions Lungs: lungs clear to auscultation. No wheezing, rhonchi, rales Heart: RRR without murmur, gallop, or rubs. No ectopy Abdomen: Abdomen soft. Bowel sounds normal. No masses, organomegaly, Positive findings: tenderness moderate epigastric. No rebound or guarding. Extremities: No deformities, edema, skin discoloration, clubbing or cyanosis. Good capillary refill. , Pulses: 2+ ASSESSMENT/PLAN: 1. Diarrhea, unspecified type - ICD9: 787.91, ICD10: R19.7 (primary diagnosis) - will look for infectious cause - discussed SANDS of dehydration and encouraged to drink water and cut back on coffee, but to also be cautious of CHF and follow fluid recommendations given - discussed possibly infectious, so to be careful around others and use precaution methods - CRYPTOSPORIDIUM AND GIARDIA ANTIGENS BY EIA - ENTERIC BACTERIAL PANEL BY PCR - C. DIFFICILE PCR - FECAL LACTOFERRIN/LEUKOCYTES - FECAL OCCULT BLOOD TEST - H PYLORI AG BY EIA,STOOL - follow up PRN, will notify of results and treatment if needed - encouraged to notify cardiac team to make them aware in case procedures need to be rescheduled 2. Epigastric pain - ICD9: 789.06, ICD10: R10.13 - Discussed lifestyle modifications including losing weight, limiting caffeine, no meals three hours before sleep and head of bed elevation - Continue treatment with Prilosec 20 mg QD 3. Smoker - ICD9: 305.1, ICD10: F17.200 - Cessation encouraged. - Physiologic and physical aspects of tobacco addiction as well as strategies for quitting were discussed. - Counseling was given focusing on the harmful effects of this addiction especially given the patient's medical condition(s) which will be worsened because of the chemicals in tobacco. - continue with wellbutrin and e-coaching Evette Sharpe APRN.CNP CNOV Observed: 05/27/2018 Status: COMPLETED Source: [facility] 10:20 AM [facility] REPOSITORY Office Visit (FAMPWS) CRUZ JACOBO ([id number]) 1960 F Date Time Provider Department 05/27/18 10:20 AM EVETTE SHARPE (PRECINCT I POLICE SERGEANT) [facility] During your visit today, we recorded the following information about you: Temperature Pulse Respiration Blood pressure 97.7 degrees 111/minute 20/minute 112/70 Weight 70.3 kg Evette Sharpe APRN.CNP 05/27/2018 10:56 AM Signed 05/27/2018 Patient presents with: Diarrhea: interm. last bowel movement 4am , dark stool SUBJECTIVE: This is a 57 year old that is here today for 2 weeks of nausea, no abd pain, on and off diarrhea- water and dark with some incontinent episodes otherwise soft, but not formed. Eating normally- she states that she eats about twice a day on a normal day. Drinks water throughout the day, but may not be enough, coffee- 3 cups a day. She denies any blood in stool. Denies hemorrhoids, She states that she sometimes feels that she is straining, but no hard stools, always soft or watery. Denies bloating. + flatulence. Denies fever or chills. GERD controlled on prilosec. She states that she found something in pad that looks like a worm. She states that she does have a new puppy that has not been wormed yet. She denies any travel. Denies any close contacts with similar symptoms. Daughter had one day of diarrhea, but she got better. She was treated with antibiotics on March for skin infection- she continues to follow with wound care. Concerned because she is having a cardiac procedure on 06/06/18 and 06/14/18 at [facility]. She states that she has not noticed a change in her CHF or SOB related to it since the diarrhea started. She denies edema, CP, palpitations, dizziness. She has cut back on smoking and enjoys working with the [employer]. PAST MEDICAL HISTORY Diagnosis Date - YEN positive 12/06/2017 Seeing Rheum - Cancer ([facility]) - CHF (congestive heart failure) ([facility]) 12/06/2017 - COPD (chronic obstructive pulmonary disease) ([facility]) - Fibromyalgia 03/09/2014 - HTN (hypertension) - Hyperlipidemia 01/30/2014 - Insomnia 09/20/2013 - Lipoma of buttock 01/25/2014 Left glut - Low back pain 05/09/2013 - Lumbar canal stenosis 12/06/2017 Moderate at L2-L3 - Lumbar facet arthropathy 12/06/2017 - Lumbar foraminal stenosis 12/06/2017 - 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 Ruiz, on colchicine - Routine gynecological examination Dr. Arreola - Seasonal allergies - Smoker 01/25/2014 - Substance abuse ([facility]) - Urge incontinence 06/22/2013 - Vitamin D deficiency 01/25/2014 ALLERGIES Bee Sting; Aleve [Naproxen] MEDICATIONS Current Outpatient Prescriptions: oxybutynin ER (DITROPAN XL) 10 mg 24 hr tablet take 1 tablet by mouth once daily - TO REPLACE DETROL SPIRIVA WITH HANDIHALER 18 mcg inhalation capsule inhale contents of 1 capsule as directed once daily PROAIR HFA 90 mcg/actuation inhaler inhale 2 puffs by mouth four times a day buPROPion HCl, smoking deter, 150 mg Tb12 take 1 tablet by mouth once daily for 2 weeks then take 1 tablet twice a day gabapentin (NEURONTIN) 400 mg capsule take 3 capsules by mouth at bedtime omeprazole (PRILOSEC) 20 mg capsule take 1 tablet by mouth daily 1/2 HOUR BEFORE BREAKFAST rOPINIRole (REQUIP) 0.5 mg tablet take 2 tablets by mouth at bedtime baclofen (LIORESAL) 20 mg tablet take 1 tablet by mouth 2 to three times a day for muscle spasm colchicine 0.6 mg tablet take 1 tablet by mouth twice a day ibuprofen (MOTRIN) 800 mg tablet take 1 tablet by mouth every 8 hours with food if needed for pain SYMBICORT 160-4.5 mcg/actuation inhaler Inhale 2 Puffs as instructed twice daily. EPINEPHrine (EPIPEN) 0.3 mg/0.3 mL auto-injector Inject 0.3 mL intramuscularly as needed. atorvastatin (LIPITOR) 10 mg tablet take 1 tablet by mouth daily at bedtime amLODIPine (NORVASC) 5 mg tablet take 1 tablet by mouth once daily benazepril (LOTENSIN) 20 mg tablet Take 1 tablet by mouth once daily. aspirin, enteric coated (ADULT LOW DOSE ASPIRIN) 81 mg EC tablet Take 1 tablet by mouth once daily. No current facility-administered medications for this visit. Medications and allergies reviewed by this provider. SOCIAL HISTORY Social History Marital status: Spouse name: Years of education: Number of children: Occupational History Occupation Employer Comment [employer], last done 2011 Social History Main Topics Smoking status: Current Every Day Smoker Packs/day: 2.00 Years: 37.00 Start date: 1976 Smokeless tobacco: Never Used Alcohol use: No Comment: None since 2011, TO 02/2016. Drug use: No Social History Narrative Tried Chantix and Nicotine patch. First morning cigarette right after going to the bathroom. Hardest cigarette to give up- morning cigarette. Once get coffee in the morning, it is one after another. Quit during hospitalization with delivery of baby for 1 week. Smoked during . REVIEW OF SYSTEMS See HPI OBJECTIVE: BP 112/70 Pulse 111 Temp 36.5 ?C (97.7 ?F) Resp 20 Wt 70.3 kg (155 lb) SpO2 92% BMI 26.61 kg/m? . Vital signs reviewed by this provider. PHYSICAL EXAMINATION: General appearance: Well appearing, alert, in no acute distress, well-hydrated, well nourished. Skin: Skin color, texture, turgor normal, no suspicious rashes or lesions Lungs: lungs clear to auscultation. No wheezing, rhonchi, rales Heart: RRR without murmur, gallop, or rubs. No ectopy Abdomen: Abdomen soft. Bowel sounds normal. No masses, organomegaly, Positive findings: tenderness moderate epigastric. No rebound or guarding. Extremities: No deformities, edema, skin discoloration, clubbing or cyanosis. Good capillary refill. , Pulses: 2+ ASSESSMENT/PLAN: 1. Diarrhea, unspecified type - ICD9: 787.91, ICD10: R19.7 (primary diagnosis) - will look for infectious cause - discussed SANDS of dehydration and encouraged to drink water and cut back on coffee, but to also be cautious of CHF and follow fluid recommendations given - discussed possibly infectious, so to be careful around others and use precaution methods - CRYPTOSPORIDIUM AND GIARDIA ANTIGENS BY EIA - ENTERIC BACTERIAL PANEL BY PCR - C. DIFFICILE PCR - FECAL LACTOFERRIN/LEUKOCYTES - FECAL OCCULT BLOOD TEST - H PYLORI AG BY EIA,STOOL - follow up PRN, will notify of results and treatment if needed - encouraged to notify cardiac team to make them aware in case procedures need to be rescheduled 2. Epigastric pain - ICD9: 789.06, ICD10: R10.13 - Discussed lifestyle modifications including losing weight, limiting caffeine, no meals three hours before sleep and head of bed elevation - Continue treatment with Prilosec 20 mg QD 3. Smoker - ICD9: 305.1, ICD10: F17.200 - Cessation encouraged. - Physiologic and physical aspects of tobacco addiction as well as strategies for quitting were discussed. - Counseling was given focusing on the harmful effects of this addiction especially given the patient's medical condition(s) which will be worsened because of the chemicals in tobacco. - continue with wellbutrin and e-coaching Evette Sharpe APRN.PRECINCT I POLICE SERGEANT Referring Provider: SELF [200] Allergies As of Date: 05/27/2018 Noted Allergy Reaction BEE STING 05/09/2013 7 - Swelling 12 - Shortness of Breath ALEVE (NAPROXEN) 05/09/2013 4 - Hives Date Reviewed: 05/27/2018 Reviewed by: Kavya Leonard) MONTSE Chang - Fully Assessed Reason for Visit: Diarrhea [35] Cmt: interm. last bowel movement 4am , dark stool Primary Visit Diagnosis:Diarrhea, unspecified type [R19.7] Other Visit Diagnoses:Epigastric pain [R10.13] Smoker [F17.200] Order(s):CRYPTOSPORIDIUM AND GIARDIA ANTIGENS BY EIA [SQOVAPSC] Order #: [id number] ENTERIC BACTERIAL PANEL BY PCR [SQSTLPCR] Order #: [id number] FUTURE C. DIFFICILE PCR [SQCDPCR] Order #: [id number] FECAL LACTOFERRIN/LEUKOCYTES [SQFECWBC] Order #: [id number] FECAL OCCULT BLOOD TEST [SQIFOBT] Order #: [id number] FUTURE H PYLORI AG BY EIA,STOOL [SQHPYLAG] Order #: [id number] Prescriptions as of 05/27/2018 Sig: OXYBUTYNIN CHLORIDE ER 10 MG * take 1 tablet by mouth once d* SPIRIVA WITH HANDIHALER 18 MC* inhale contents of 1 capsule * PROAIR HFA 90 MCG/ACTUATION A* inhale 2 puffs by mouth four * BUPROPION HCL 150 MG TABLET,1* take 1 tablet by mouth once d* GABAPENTIN 400 MG CAPSULE take 3 capsules by mouth at b* OMEPRAZOLE 20 MG CAPSULE,DIONE* take 1 tablet by mouth daily * ROPINIROLE 0.5 MG TABLET take 2 tablets by mouth at be* BACLOFEN 20 MG TABLET take 1 tablet by mouth 2 to t* IBUPROFEN 800 MG TABLET take 1 tablet by mouth every * SYMBICORT 160 MCG-4.5 MCG/ACT* Inhale 2 Puffs as instructed * EPINEPHRINE 0.3 MG/0.3 ML INJ* Inject 0.3 mL intramuscularly* ATORVASTATIN 10 MG TABLET take 1 tablet by mouth daily * AMLODIPINE 5 MG TABLET take 1 tablet by mouth once d* BENAZEPRIL 20 MG TABLET Take 1 tablet by mouth once d* ASPIRIN 81 MG TABLET,DELAYED * Take 1 tablet by mouth once d* Problem List As Of Date 05/27/2018 Noted Resolved Seasonal allergies [J30.2] Routine gynecological examination [Z01.419] More... Urge incontinence [N39.41] INVALID FOR* Insomnia [G47.00] INVALID FOR* Vitamin D deficiency [E55.9] INVALID FOR* Smoker [F17.200] INVALID FOR* More... Lipoma of buttock [D17.1] INVALID FOR* More... More... Fibromyalgia [M79.7] INVALID FOR* Essential hypertension [I10] INVALID FOR* Chronic obstructive pulmonary disease (HCC) [J4*INVALID FOR* More... Mixed hyperlipidemia [E78.2] INVALID FOR* Gastroesophageal reflux disease without esophag*INVALID FOR* Low back pain [M54.5] INVALID FOR* More... Arthritis of both knees [M17.0] INVALID FOR* More... Pericardial effusion [I31.3] INVALID FOR* More... Carpal tunnel syndrome of left wrist [G56.02] INVALID FOR* More... Obesity (BMI 35.0-39.9 without comorbidity) [E6*INVALID FOR*01/12/2017 Obesity (BMI 30.0-34.9) [E66.9] INVALID FOR* More... Current use of proton pump inhibitor [Z79.899] INVALID FOR* More... Lumbar canal stenosis [M48.061] INVALID FOR* More... Lumbar foraminal stenosis [M99.83] INVALID FOR* Lumbar facet arthropathy (HCC) [M47.816] INVALID FOR* CHF (congestive heart failure) (HCC) [I50.9] INVALID FOR* More... YEN positive [R76.8] INVALID FOR* More... Medicare annual wellness visit, subsequent [Z00*INVALID FOR* More... Well adult exam [Z00.00] INVALID FOR* More... Screening for colon cancer [Z12.11] INVALID FOR* Encounter for screening mammogram for breast ca*INVALID FOR* Elevated hemoglobin (HCC) [D58.2] INVALID FOR* Secondary polycythemia [D75.1] INVALID FOR* More... Medications Discontinued During This Encounter colchicine 0.6 mg tablet 60 t* 11 01/25/2018 05/27/2018 Sig: take 1 tablet by mouth twice a day Disc: Reason for discontinue is not on file. Encounter Status:Closed by EVETTE SHARPE on 05/27/18 CBC AND DIFFERENTIAL Collected: 04/27/2018 Status: F Source: [facility] 10:32 AM [facility] TYPE CODE TESTS RESULT OUT OF REFERENCE UNITS RANGE LAB WBC 3.70-11.00 k/uL WBC 5.70 LAB RBC 3.90-5.20 m/uL RBC 5.20 LAB HGB 11.5-15.5 g/dL High Hemoglobin 16.8 LAB HCT 36.0-46.0 % High Hematocrit 50.9 LAB MCV 80.0-100.0 fL MCV 97.9 LAB MCH 26.0-34.0 pG MCH 32.3 LAB MCHC 30.5-36.0 g/dL MCHC 33.0 LAB RDWCV 11.5-15.0 % RDW-CV 14.4 LAB PLTCT 150-400 k/uL Low Platelet Count 149 LAB MPV 9.0-12.7 fL MPV 11.6 LAB ANEUT % Neut% 73.0 LAB AANEUT 1.45-7.50 k/uL Abs Neut 4.15 LAB ALYMP % Lymph% 17.2 LAB AALYMP 1.00-4.00 k/uL Low Abs Lymph 0.98 LAB AMONO % [place]% 7.9 LAB AAMONO <0.87 k/uL Abs [place] 0.45 LAB AEOS % Eosin% 1.4 LAB AAEOS <0.46 k/uL Abs Eosin 0.08 LAB ABASO % Baso% 0.5 LAB AABASO <0.11 k/uL Abs Baso 0.03 LAB AUNRBC 0 /100 WBC NRBCs 0.0 LAB ABNRBC <0.01 k/uL Absolute nRBC <0.01 LAB DTYP DTYPE Auto Diff Performed By: #### CBCDIF, WSR, TSH, CK, NTBNP, RF, FLORIAN, CMP, CRP, LIPB #### [place] [id number] SED RATE WESTERGREN Collected: 04/27/2018 Status: F Source: [facility] 10:32 AM [facility] REPOSITORY TYPE CODE TESTS RESULT OUT OF REFERENCE UNITS RANGE LAB WSR 0-20 mm/hr Sed Rate Westergren 2 Performed By: #### CBCDIF, WSR, TSH, CK, NTBNP, RF, FLORIAN, CMP, CRP, LIPB #### [place] [id number] TSH Collected: 04/27/2018 Status: F Source: [facility] 10:32 AM [facility] REPOSITORY TYPE CODE TESTS RESULT OUT OF RANGE REFERENCE UNITS LAB TSH 0.400-5.500 uU/mL TSH 1.770 Performed By: #### CBCDIF, WSR, TSH, CK, NTBNP, RF, FLORIAN, CMP, CRP, LIPB #### [place] [address] CK Collected: 04/27/2018 Status: F Source: [facility] 10:32 AM [facility] REPOSITORY TYPE CODE TESTS RESULT OUT OF RANGE REFERENCE UNITS LAB CK 42-196 U/L CK 107 Performed By: #### CBCDIF, WSR, TSH, CK, NTBNP, RF, FLORIAN, CMP, CRP, LIPB #### [place] [id number] NT PRO BNP Collected: 04/27/2018 Status: F Source: [facility] 10:32 AM [facility] REPOSITORY TYPE CODE TESTS RESULT OUT OF REFERENCE UNITS RANGE LAB PBNP <125 pg/mL High PRO B Natr 145 Peptide Performed By: #### CBCDIF, WSR, TSH, CK, NTBNP, RF, FLORIAN, CMP, CRP, LIPB #### [place] [address] RHEUMATOID FACTOR Collected: 04/27/2018 Status: F Source: [facility] 10:32 AM [facility] REPOSITORY TYPE CODE TESTS RESULT OUT OF REFERENCE UNITS RANGE LAB RF <16 IU/mL Rheumatoid <10 Factor Performed By: #### CBCDIF, WSR, TSH, CK, NTBNP, RF, FLORIAN, CMP, CRP, LIPB #### [place] [id number] TROPONIN T Collected: 04/27/2018 Status: F Source: [facility] 10:32 AM [facility] REPOSITORY TYPE CODE TESTS RESULT OUT OF REFERENCE UNITS RANGE LAB TROPT 0.000-0.029 ng/mL Troponin T <0.010 Performed By: #### CBCDIF, WSR, TSH, CK, NTBNP, RF, FLORIAN, CMP, CRP, LIPB #### [place] [id number] COMP METABOLIC PANEL Collected: 04/27/2018 Status: F Source: [facility] 10:32 AM [facility] TYPE CODE TESTS RESULT OUT OF REFERENCE UNITS RANGE LAB TP 6.3-8.0 g/dL Protein, Total 6.7 LAB ALB 3.9-4.9 g/dL Albumin 4.0 LAB CA 8.5-10.2 mg/dL Calcium, Total 9.7 LAB TBIL 0.2-1.3 mg/dL Bilirubin, Total 0.3 LAB ALKP 34-123 U/L Alkaline Phosphatase 70 LAB AST 13-35 U/L AST 17 LAB GLU 74-99 mg/dL Glucose 87 Result Comment: The [place] [employer] (ADA) provides guidance for cutoff values for fasting glucose and random glucose. The ADA defines fasting as no caloric intake for at least 8 hours. Fas ting plasma glucose results between 100 to 125 mg/dL indicate increased risk for diabetes (prediabetes). Fasting plasma glucose results greater than or equal to 126 mg/dL meet the criteria for diagnosis of diabetes. In the absence of unequivocal hyperglycemia, results should be confirmed by repeat testing. In a patient with classic symptoms of hyperglycemia or hyperglycemic crisis, random plasma glucose results greater than or equal to 200 mg/dL meet the criteria for diagnosis of diabetes. Reference: Standards of Medical Care in Diabetes 2016, [place] [employer]. Diabetes Care. 2016.39(Suppl 1). LAB BUN 7-21 mg/dL BUN 9 LAB CRET 0.58-0.96 mg/dL Creatinine High 0.99 LAB NA 136-144 mmol/L Sodium 140 LAB K 3.7-5.1 mmol/L Potassium 4.4 LAB CL 97-105 mmol/L Chloride 102 LAB CO2 22-30 mmol/L CO2 24 LAB AGAP 9-18 mmol/L Anion Gap 14 LAB ALT 7-38 U/L ALT 15 LAB GFRAA eGFR- Amer. >60 LAB GFRNAA . eGFR-All Other Races 58 Result Comment: eGFR (Estimated GFR) Units of measure: mL/min/1.73 meters squared eGFR is derived from the reexpressed MDRD Study equation using the following parameters: serum creatinine, age, gender and race. The creatinine assay has been calibrated to be traceable to IDMS. An eGFR <60 mL/min/1.73m2 for >3 months is consistent with chronic kidney disease. Refer to KDOQI guidelines for clinical interpretation. In patients with unstable renal function, e.g. those with acute kidney injury, the eGFR may not accurately reflect actual GFR. Performed By: #### CBCDIF, WSR, TSH, CK, NTBNP, RF, FLORIAN, CMP, CRP, LIPB #### [facility] [address], [place] [address] C-REACTIVE PROTEIN Collected: 04/27/2018 Status: F Source: [place] 10:32 AM [facility] REPOSITORY TYPE CODE TESTS RESULT OUT OF REFERENCE UNITS RANGE LAB CRP <0.9 mg/dL C-Reactive 0.4 Protein Performed By: #### CBCDIF, WSR, TSH, CK, NTBNP, RF, FLORIAN, CMP, CRP, LIPB #### [facility] [address] [place], [place] [address] LIPID PANEL, BASIC Collected: 04/27/2018 Status: F Source: [place] 10:32 AM [facility] REPOSITORY TYPE CODE TESTS RESULT OUT OF REFERENCE UNITS RANGE LAB CHOL <200 mg/dL Cholesterol 152 Result Comment: <200 mg/dL, Desirable 200-239 mg/dL, Borderline high >239 mg/dL, High LAB TRIGLY <150 mg/dL Triglyceride 102 Result Comment: <150 mg/dL, Normal 150-199 mg/dL, Borderline high 200-499 mg/dL, High >499 mg/dL, Very high LAB HDL >39 mg/dL HDL-Cholesterol 42 Result Comment: 40-59 mg/dL, Acceptable >59 mg/dL, High: Negative risk factor for coronary heart disease <40 mg/dL, Low: Positive risk factor for coronary heart disease LAB LDL <100 mg/dL LDL-Cholesterol 90 Result Comment: <100 mg/dL, Optimal 100-129 mg/dL, Near optimal/above optimal 130-159 mg/dL, Borderline high 160-189 mg/dL, High >189 mg/dL, Very high Secondary prevention optimal LDL Cholesterol levels are recommended to be < 70 mg/dL LAB NONHDL <130 mg/dL Non HDL Cholesterol 110 Result Comment: <130 mg/dL, Optimal 130-159 mg/dL, Near optimal/above optimal 160-189 mg/dL, Borderline high 190-219 mg/dL, High >219 mg/dL, Very high Secondary prevention optimal non HDL Cholesterol levels are recommended to be < 100 mg/dL LAB FT hrs Fasting Time 0 LAB VLDL <30 mg/dL VLDL Cholesterol 20 LAB TCHDL <5.10 TC:HDL Ratio 3.62 LAB LDLHDL <2.54 LDL:HDL Ratio 2.14 Result Comment: Reference: 1. National Cholesterol Education Program ATP III Guideline At-A-Glance Quick Desk Reference: National Heart, Lung, and Blood [place]. National Institutes of Health. 2001: NIH Publication No. 01-3305. 2. An International Atherosclerosis Society position paper: global recommendations for the management of dyslipidemia: executive summary, Atherosclerosis. 2014: 232(2):410-413. Performed By: #### CBCDIF, WSR, TSH, CK, NTBNP, RF, FLORIAN, CMP, CRP, LIPB #### [facility] [address] [place], [place] [address] HISTORY PHYSICAL Observed: 04/27/2018 Status: COMPLETED Source: [place] 10:08 AM [facility] REPOSITORY HNO ID: [id number] Author: George Latham Service: (none) Author Type: Physician Type: HANDP Filed: 04/27/2018 6:17 PM Note Text: [facility] [place] [facility] Department of Cardiovascular Medicine PERICARDIAL CENTER OUTPATIENT VISIT DATE April 27, 2018 OUTPATIENT VISIT TYPE CONSULT REFERRING PHYSICIAN SELF PCP: [address] [facility] [id number] Card Puncher: Dr. Eugenio Ruiz Helper Metal Hanging: Dr. Campos CHIEF COMPLAINT: Pericardial Effusion HISTORY OF PRESENT ILLNESS: Ms. Cruz Jacobo is a 57 year old female who presents today for an evaluation regarding pericardial effusion. The etiology is idiopathic. Patient pain scale is 4/10 but described more as chest tightness with exertion not pain. Ms. Cruz Jacobo reports she is feeling short of breath. Ms. Cruz Jacobo describe her chest pain/tightness has been going on for 1 month and worsens with exertion. Ms. Cruz Jacobo describe her SOB as exertional and has been going on for 1 month. Feels different from her occasional COPD flare for which she sometimes uses a rescue inhaler. She sleeps on her stomach for comfort and feels worse when lying flat. He dyspnea is relieved by sitting forward in the chair. No leg swelling or classic PND. She does not have orthopnea but does have positional chest tightness that improves with sitting forward in the chair. Denies family history of auto-immune disease but she can't be certain. She stopped Colchicine on 04/07/18 on the recommendation of Dr. Ruiz. Has been on NSAIDS for years most recently TID but some times daily or none at all. She denies recent fevers, chills, sick contacts, cough. Unfortunately, she continues to actively smoke. She was first noted to have a pericardial effusion in 2013 that was small to moderate. Despite intermittent use of NSAIDs her likely idiopathic pericardial effusion has grown in size. Importantly, she has had unintentional weight loss of 10lbs over the last several months. A recent CT chest does not reveal pulmonary nodules and patient reports having colonoscopy and mammogram in the last several years. 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 Patient is willing to be contacted regarding research: Yes Her current pericardial medication include: Ibuprofen 800mg TID, She STOPPED colchicine 0.6mg BID after her last appointment with Dr. Ruiz. Possible side effects of pericardial medications: None Per prior rheumatology notes as pasted below she has had prior positive YEN and Fibromyalgia but has not a confirmed rheumatologic diagnosis. In May, seen by Dr. Posey in [facility] rheumatology for positive YEN 1:320 nucleolar pattern and Raynaud's. Was thought to not have lupus or another autoimmune CTD given lack of other clinical features including remaining lab results. Diagnosed with mechanical back pain. Advised on smoking cessation and to return to clinic to monitor for new symptoms or findings. Positive YEN 1:320: With some prior photosensitivity (slight rash only with prolonged sun exposure so not as sensitive as typically seen in lupus) and pericardial effusion which can be seen in lupus. However, explained that she still does not officially meet criteria for diagnosis. Continues to have no clinical features to suggest systemic sclerosis or other autoimmune connective tissue diseases. Nailfold capillary exam remains normal and therefore does not suggest a secondary autoimmune cause for Raynaud's. PAST PERICARDIAL DISEASE AND CARDIAC HISTORY: The pericardial symptoms started 1 month ago with worsening GLYNN and the diagnosis was made on 2013 first note of pericardial effusion . She has a history of pericardial effusion Yes: that is Large > 20 mm of echo free space and the location of the effusion is anterior, posterior, circumferential She has a history of constrictive pericarditis No. EVIDENCE OF CONSTRICTIVE PERICARDITIS: None EVIDENCE OF ACUTE / RECURRENT PERICARDITIS: Pleuritic chest pain: Yes Pericardial rub: No Classic EKG changes (diffuse ST elevation): No New or increasing pericardial effusion: Yes Elevated CRP/USCRP and WSR: No Increased LGE on MRI: not done PREVIOUS INVESTIGATIONS: Computed Tomography (CT): 04/07/2018; IMPRESSION: Prominent pericardial effusion. Emphysematous changes without active pulmonary disease INFLAMMATORY MARKERS: WSR: 04/27/18: 2 Date: 02/26/18 and CRP: 1 / Date: 01/26/18 OTHER LABS: PREVIOUS MANAGEMENT: Medical Therapy: Single Pericardial Medication Therapy: NSAID: 800 mg TID Start: 2015 Colchicine: 0.6 mg BID Start: 2015, End: 04/07/18 Surgical Therapy: NA Pericardial window: none ALLERGIES: Bee Sting; Aleve [Naproxen] MEDICATIONS: Current Outpatient Prescriptions: SPIRIVA WITH HANDIHALER 18 mcg inhalation capsule inhale contents of 1 capsule as directed once daily PROAIR HFA 90 mcg/actuation inhaler inhale 2 puffs by mouth four times a day buPROPion HCl, smoking deter, 150 mg Tb12 take 1 tablet by mouth once daily for 2 weeks then take 1 tablet twice a day gabapentin (NEURONTIN) 400 mg capsule take 3 capsules by mouth at bedtime omeprazole (PRILOSEC) 20 mg capsule take 1 tablet by mouth daily 1/2 HOUR BEFORE BREAKFAST rOPINIRole (REQUIP) 0.5 mg tablet take 2 tablets by mouth at bedtime baclofen (LIORESAL) 20 mg tablet take 1 tablet by mouth 2 to three times a day for muscle spasm colchicine 0.6 mg tablet take 1 tablet by mouth twice a day ibuprofen (MOTRIN) 800 mg tablet take 1 tablet by mouth every 8 hours with food if needed for pain SYMBICORT 160-4.5 mcg/actuation inhaler Inhale 2 Puffs as instructed twice daily. EPINEPHrine (EPIPEN) 0.3 mg/0.3 mL auto-injector Inject 0.3 mL intramuscularly as needed. omeprazole (PRILOSEC) 20 mg capsule take 1 capsule by mouth every morning 1/2 HOUR BEFORE BREAKFAST oxybutynin ER (DITROPAN XL) 10 mg 24 hr tablet take 1 tablet by mouth once daily ---TO REPLACE DETROL rOPINIRole (REQUIP) 0.5 mg tablet take 2 tablets by mouth at bedtime atorvastatin (LIPITOR) 10 mg tablet take 1 tablet by mouth daily at bedtime amLODIPine (NORVASC) 5 mg tablet take 1 tablet by mouth once daily benazepril (LOTENSIN) 20 mg tablet Take 1 tablet by mouth once daily. aspirin, enteric coated (ADULT LOW DOSE ASPIRIN) 81 mg EC tablet Take 1 tablet by mouth once daily. No current facility-administered medications for this visit. PAST MEDICAL HISTORY Diagnosis Date - YEN positive 12/06/2017 Seeing Rheum - Cancer ([facility]) - CHF (congestive heart failure) ([facility]) 12/06/2017 - COPD (chronic obstructive pulmonary disease) ([facility]) - Fibromyalgia 03/09/2014 - HTN (hypertension) - Hyperlipidemia 01/30/2014 - Insomnia 09/20/2013 - Lipoma of buttock 01/25/2014 Left glut - Low back pain 05/09/2013 - Lumbar canal stenosis 12/06/2017 Moderate at L2-L3 - Lumbar facet arthropathy 12/06/2017 - Lumbar foraminal stenosis 12/06/2017 - 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 Ruiz, on colchicine - Routine gynecological examination Dr. Arreola - Seasonal allergies - Smoker 01/25/2014 - Substance abuse ([facility]) - Urge incontinence 06/22/2013 - Vitamin D deficiency 01/25/2014 PAST SURGICAL HISTORY Procedure Laterality Date - FECAL OCCULT BLOOD TEST 12/09/2017 negative - STRESS TEST 08/28/2014 NL - HERLINDA W/WO REMOVAL TUBE OVARY HERLINDA-BSO - TONSILLECTOMY HX - [facility] DELIVERY SCHEDULING ORDER 2002 SOCIAL HISTORY: Social History Substance Use Topics - Smoking status: Current Every Day Smoker Packs/day: 2.00 Years: 37.00 Start date: 1976 - Smokeless tobacco: Never Used - Alcohol use No Comment: None since 2011, TO 02/2016. FAMILY HISTORY Problem Relation Age of Onset - Coronary Artery Disease Mother - Diabetes Mother - Headache Mother - Hypertension Mother - COPD Mother Multiple mebers of maternal family. - Diabetes Brother - Stroke Father - Breast Cancer Sister - Cancer Sister Lung. Uncle. REVIEW OF SYSTEMS: GENERAL: Negative for: Weight gain, Fever or Chills, Weakness and Sleep difficulties. HEENT: Negative for: Headache, Impaired Vision, Glasses, Hearing Impairment, Ringing in Ears, Nosebleeds, Poor dental care, Bleeding Gums, Dentures NECK: Negative for: Swelling, Pain, Stiffness RESPIRATORY: Negative for: Cough, Blood in Sputum, Apnea GASTROINTESTINAL: Negative for: Trouble swallowing, Heartburn, Change in bowel habits, Blood in stool, Dark black stools MUSCULOSKELETAL: Negative for: Muscle or joint pain, Stiffness , Joint swelling NEUROLOGIC/PSYCHIATRIC: Negative for: Weakness, Paralysis, Numbness, Tingling, Tremor, Nervousness, Depressed mood, Memory loss SKIN: Negative for: Rashes, Itching HEMATOLOGICAL/LYMPHATIC: Negative for: Easy bruising , Easy bleeding ENDOCRINE: Negative for: Heat or cold intolerance, Excessive sweating, Frequent urination, Frequent thirst History by Deacon Buchanan MD I have reviewed the above information and made the appropriate corrections. Manny Latham M.D. PHYSICAL EXAM: BP 109/75 Pulse 89 Ht 162.6 cm (5' 4) Wt 72.4 kg (159 lb 9.6 oz) SpO2 92% BMI 27.40 kg/m? General: Appears well nourished. In no acute distress. Skin: No clubbing. No cyanosis. Eyes: EOMI. Oropharynx: Teeth in good repair. Neck: Supple, + JVD with respiratory variation and elevation to 8cm at maximum, no Kussmaul's sign, no carotid bruits, carotids have a normal upstroke, no thyromegaly. Lungs: Clear to auscultation bilaterally. Heart: Regular rate and rhythm. PMI 5th ICS LMCL, S1nl, S2nl. Yes rub No knock, heart murmur none Abdomen: Soft, non-tender, BS normal, no organomegaly, no bruits. Ascites No Extremities: No peripheral edema bilaterally. Grade 2/4 distal pulses bilaterally. Neuro: Oriented x3, alert, cooperative, reflexes normal, CN II-XII grossly intact, gait coordinated. Lab: Component Latest Ref Rng AND Units 04/27/2018 WBC 3.70 - 11.00 k/uL 5.70 RBC 3.90 - 5.20 m/uL 5.20 Hemoglobin 11.5 - 15.5 g/dL 16.8 (H) Hematocrit 36.0 - 46.0 % 50.9 (H) MCV 80.0 - 100.0 fL 97.9 MCH 26.0 - 34.0 pG 32.3 MCHC 30.5 - 36.0 g/dL 33.0 RDW-CV 11.5 - 15.0 % 14.4 Platelet Count 150 - 400 k/uL 149 (L) MPV 9.0 - 12.7 fL 11.6 Neut% % 73.0 Abs Neut (ANC) 1.45 - 7.50 k/uL 4.15 Lymph% % 17.2 Abs Lymph 1.00 - 4.00 k/uL 0.98 (L) [place]% % 7.9 Abs [place] <0.87 k/uL 0.45 Eosin% % 1.4 Abs Eosin <0.46 k/uL 0.08 Baso% % 0.5 Abs Baso <0.11 k/uL 0.03 Nucleated Reds 0 /100 WBC 0.0 Absolute nRBC <0.01 k/uL <0.01 Diff Type Auto Diff Protein, Total 6.3 - 8.0 g/dL 6.7 Albumin 3.9 - 4.9 g/dL 4.0 Calcium 8.5 - 10.2 mg/dL 9.7 Bilirubin, Total 0.2 - 1.3 mg/dL 0.3 Alkaline Phosphatase 34 - 123 U/L 70 AST 13 - 35 U/L 17 Glucose 74 - 99 mg/dL 87 BUN 7 - 21 mg/dL 9 Creatinine 0.58 - 0.96 mg/dL 0.99 (H) Sodium 136 - 144 mmol/L 140 Potassium 3.7 - 5.1 mmol/L 4.4 Chloride 97 - 105 mmol/L 102 CO2 22 - 30 mmol/L 24 Anion Gap 9 - 18 mmol/L 14 ALT 7 - 38 U/L 15 eGFR- >60 eGFR-All Other Races . 58 Cholesterol, Total <200 mg/dL 152 Triglyceride <150 mg/dL 102 HDL Cholesterol >39 mg/dL 42 LDL Cholesterol <100 mg/dL 90 Non HDL Cholesterol <130 mg/dL 110 Fasting Time hrs 0 VLDL Cholesterol <30 mg/dL 20 TC:HDL Ratio <5.10 3.62 LDL:HDL Ratio <2.54 2.14 TSH 0.400 - 5.500 uU/mL 1.770 WSR 0 - 20 mm/hr 2 NT Pro BNP <125 pg/mL 145 (H) Troponin T 0.000 - 0.029 ng/mL <0.010 CK 42 - 196 U/L 107 CRP <0.9 mg/dL 0.4 Rheumatoid Factor <16 IU/mL <10 Echo; CONCLUSIONS: - Exam indication: Reassess pericardial effusion - The left ventricle is small. There is no left ventricular hypertrophy. Left ventricular systolic function is normal. EF = 70 ? 5% (2D biplane) Left ventricular diastolic function was not evaluated due to inconsistent or technically suboptimal data. - The right ventricle is moderately dilated. Right ventricular systolic function is moderately decreased. - Estimated right ventricular systolic pressure is 65 mmHg consistent with moderately severe pulmonary hypertension. Estimated right atrial pressure is 5 mmHg. Estimated right ventricular systolic pressure is 65 mmHg consistent with moderately severe pulmonary hypertension. Estimated right atrial pressure is 5 mmHg. - Moderate circumferential pericardial effusion with largest ( 2.0cm ) around the LV apex; posterolaterally. No chambers compromise. IVC is small and collapses. No cardiac tamponade physiology. - Exam was compared with the prior CC echocardiographic exam performed on 03/04/2018. similar findings of pericardial effusion on side-side comparison. After my examination and review of data, I make the following recommendations. ASSESSMENT/PLAN: Ms. Cruz Jacobo is a 57 year old female who presents for consultation regarding chronic idiopathic pericardial effusion that is not resolving on dual therapy with colchicine and Ibuprofen for an extended periods who is now likely symptomatic with a large pericardial effusion that on review of the echo appears amenable to anterior drainage. However, given this is likely to recur with echo guided drainage and a pericardial window would allow for biopsy simultaneously, we will arrange for expedited pericardial window with CTS. She has alarmingly had Physical exam today reveals elevated JVP, no lower extremity edema, no friction rub. Labs demonstrate: Normal inflammatory markers. Previously elevated YEN. Negative SLE evaluation. Normal Thyroid studies. Imaging studies show: Moderate circumferential pericardial effusion with largest ( 2.0cm ) around the LV apex; posterolaterally. No chambers compromise. IVC is small and collapses. No cardiac tamponade physiology. OVERALL ASSESSMENT/PLAN: -Referral for pericardial window -Age appropriate cancer screening -Return precautions given for worsening symptoms -Agree with stopping colchicine -Continue Ibuprofen for now -Continue Prevacid for GI protection Drug regimen: Single anti-inflammatory therapy Continue NSAID: Ibuprofen 800 mg three times a day Blood tests: Call Office or referring MD to schedule standing order ? inflammatory markers: CRP/ USCRP and WSR every 2 weeks ? CBC/CMP every 2 months I spent 75 minutes in this visit, with more than 50% of the time devoted to patient counseling. Deacon Buchanan MD 04/27/2018 STAFF PHYSICIAN NOTE OF PERSONAL INVOLVEMENT IN CARE I have reviewed the history and physical examination obtained and documented by the fellow and I personally participated in the hayes components. I have discussed the case and management of the patient's care. The following comments revise or confirm relevant hayes components of their note. IMPRESSION: This is a 57 year old female who presents with large pericardial effusion with chest pain R/o malignancy with weight loss and smoker PLAN: will recommend pericardial window with biopsy George Latham MD [facility] ECG COMPLETE W Observed: 04/27/2018 Status: F Source: [place] INTERPRETATION 10:03 AM [facility] REPOSITORY NAME : CRUZ JACOBO PID : [id number] : 1960 Gender : Female Race : ORD : [id number] Procedure Date : Apr 27 2018 10:03:13 Edit Date : Apr 29 2018 15:34:57 Diagnosis:NORMAL SINUS RHYTHM INCOMPLETE RIGHT BUNDLE BRANCH BLOCK POSSIBLE RIGHT VENTRICULAR HYPERTROPHY ABNORMAL ECG Confirmed by ALEJO CROWDER M.D. ([id number]) on 04/29/2018 3:27:37 PM Ventricular Rate : 91 BPM Atrial Rate : 91 BPM P-R Interval : 158 ms QRS Duration : 92 ms Q-T Interval : 382 ms QTC Calculation(Bezet) : 469 ms P [place] : 68 degrees R [place] : 106 degrees T [place] : 62 degrees Test Reason : Location : 314 : J14 Overread By : ALEJO CROWDER M.D. Edited By : ALEJO CROWDER M.D. Referred By : GEORGE LATHAM Acquired by : PARISA MANRIQUEZ Observed: 04/27/2018 Status: COMPLETED Source: [place] 9:45 AM [facility] REPOSITORY Office Visit (CARIMN) CRUZ JACOBO ([id number]) 1960 F Date Time Provider Department 04/27/18 9:45 AM GEORGE LATHAM During your visit today, we recorded the following information about you: Pulse Blood pressure Weight Height 89/minute 109/75 72.4 kg 1.626 m George Latham MD [facility] 04/27/2018 6:17 PM Signed [facility] [place] [facility] Department of Cardiovascular Medicine PERICARDIAL CENTER OUTPATIENT VISIT DATE April 27, 2018 OUTPATIENT VISIT TYPE CONSULT REFERRING PHYSICIAN SELF PCP: [address] [facility] [id number] Card Puncher: Dr. Eugenio Ruiz Helper Metal Hanging: Dr. Campos CHIEF COMPLAINT: Pericardial Effusion HISTORY OF PRESENT ILLNESS: Ms. Cruz Jacobo is a 57 year old female who presents today for an evaluation regarding pericardial effusion. The etiology is idiopathic. Patient pain scale is 4/10 but described more as chest tightness with exertion not pain. Ms. Cruz Jacobo reports she is feeling short of breath. Ms. Cruz Jacobo describe her chest pain/tightness has been going on for 1 month and worsens with exertion. Ms. Cruz Jacobo describe her SOB as exertional and has been going on for 1 month. Feels different from her occasional COPD flare for which she sometimes uses a rescue inhaler. She sleeps on her stomach for comfort and feels worse when lying flat. He dyspnea is relieved by sitting forward in the chair. No leg swelling or classic PND. She does not have orthopnea but does have positional chest tightness that improves with sitting forward in the chair. Denies family history of auto-immune disease but she can't be certain. She stopped Colchicine on 04/07/18 on the recommendation of Dr. Ruiz. Has been on NSAIDS for years most recently TID but some times daily or none at all. She denies recent fevers, chills, sick contacts, cough. Unfortunately, she continues to actively smoke. She was first noted to have a pericardial effusion in 2013 that was small to moderate. Despite intermittent use of NSAIDs her likely idiopathic pericardial effusion has grown in size. Importantly, she has had unintentional weight loss of 10lbs over the last several months. A recent CT chest does not reveal pulmonary nodules and patient reports having colonoscopy and mammogram in the last several years. 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 Patient is willing to be contacted regarding research: Yes Her current pericardial medication include: Ibuprofen 800mg TID, She STOPPED colchicine 0.6mg BID after her last appointment with Dr. Ruiz. Possible side effects of pericardial medications: None Per prior rheumatology notes as pasted below she has had prior positive YEN and Fibromyalgia but has not a confirmed rheumatologic diagnosis. In May, seen by Dr. Posey in [facility]ology for positive YEN 1:320 nucleolar pattern and Raynaud's. Was thought to not have lupus or another autoimmune CTD given lack of other clinical features including remaining lab results. Diagnosed with mechanical back pain. Advised on smoking cessation and to return to clinic to monitor for new symptoms or findings. Positive YEN 1:320: With some prior photosensitivity (slight rash only with prolonged sun exposure so not as sensitive as typically seen in lupus) and pericardial effusion which can be seen in lupus. However, explained that she still does not officially meet criteria for diagnosis. Continues to have no clinical features to suggest systemic sclerosis or other autoimmune connective tissue diseases. Nailfold capillary exam remains normal and therefore does not suggest a secondary autoimmune cause for Raynaud's. PAST PERICARDIAL DISEASE AND CARDIAC HISTORY: The pericardial symptoms started 1 month ago with worsening GLYNN and the diagnosis was made on 2013 first note of pericardial effusion . She has a history of pericardial effusion Yes: that is Large > 20 mm of echo free space and the location of the effusion is anterior, posterior, circumferential She has a history of constrictive pericarditis No. EVIDENCE OF CONSTRICTIVE PERICARDITIS: None EVIDENCE OF ACUTE / RECURRENT PERICARDITIS: Pleuritic chest pain: Yes Pericardial rub: No Classic EKG changes (diffuse ST elevation): No New or increasing pericardial effusion: Yes Elevated CRP/USCRP and WSR: No Increased LGE on MRI: not done PREVIOUS INVESTIGATIONS: Computed Tomography (CT): 04/07/2018; IMPRESSION: Prominent pericardial effusion. Emphysematous changes without active pulmonary disease INFLAMMATORY MARKERS: WSR: 04/27/18: 2 Date: 02/26/18 and CRP: / Date: 01/26/18 OTHER LABS: PREVIOUS MANAGEMENT: Medical Therapy: Single Pericardial Medication Therapy: NSAID: 800 mg TID Start: 2015 Colchicine: 0.6 mg BID Start: 2015, End: 04/07/18 Surgical Therapy: NA Pericardial window: none ALLERGIES: Bee Sting; Aleve [Naproxen] MEDICATIONS: Current Outpatient Prescriptions: SPIRIVA WITH HANDIHALER 18 mcg inhalation capsule inhale contents of 1 capsule as directed once daily PROAIR HFA 90 mcg/actuation inhaler inhale 2 puffs by mouth four times a day buPROPion HCl, smoking deter, 150 mg Tb12 take 1 tablet by mouth once daily for 2 weeks then take 1 tablet twice a day gabapentin (NEURONTIN) 400 mg capsule take 3 capsules by mouth at bedtime omeprazole (PRILOSEC) 20 mg capsule take 1 tablet by mouth daily 1/2 HOUR BEFORE BREAKFAST rOPINIRole (REQUIP) 0.5 mg tablet take 2 tablets by mouth at bedtime baclofen (LIORESAL) 20 mg tablet take 1 tablet by mouth 2 to three times a day for muscle spasm colchicine 0.6 mg tablet take 1 tablet by mouth twice a day ibuprofen (MOTRIN) 800 mg tablet take 1 tablet by mouth every 8 hours with food if needed for pain SYMBICORT 160-4.5 mcg/actuation inhaler Inhale 2 Puffs as instructed twice daily. EPINEPHrine (EPIPEN) 0.3 mg/0.3 mL auto-injector Inject 0.3 mL intramuscularly as needed. omeprazole (PRILOSEC) 20 mg capsule take 1 capsule by mouth every morning 1/2 HOUR BEFORE BREAKFAST oxybutynin ER (DITROPAN XL) 10 mg 24 hr tablet take 1 tablet by mouth once daily ---TO REPLACE DETROL rOPINIRole (REQUIP) 0.5 mg tablet take 2 tablets by mouth at bedtime atorvastatin (LIPITOR) 10 mg tablet take 1 tablet by mouth daily at bedtime amLODIPine (NORVASC) 5 mg tablet take 1 tablet by mouth once daily benazepril (LOTENSIN) 20 mg tablet Take 1 tablet by mouth once daily. aspirin, enteric coated (ADULT LOW DOSE ASPIRIN) 81 mg EC tablet Take 1 tablet by mouth once daily. No current facility-administered medications for this visit. PAST MEDICAL HISTORY Diagnosis Date - YEN positive 12/06/2017 Seeing Rheum - Cancer ([facility]) - CHF (congestive heart failure) ([facility]) 12/06/2017 - COPD (chronic obstructive pulmonary disease) ([facility]) - Fibromyalgia 03/09/2014 - HTN (hypertension) - Hyperlipidemia 01/30/2014 - Insomnia 09/20/2013 - Lipoma of buttock 01/25/2014 Left glut - Low back pain 05/09/2013 - Lumbar canal stenosis 12/06/2017 Moderate at L2-L3 - Lumbar facet arthropathy 12/06/2017 - Lumbar foraminal stenosis 12/06/2017 - 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 Ruiz, on colchicine - Routine gynecological examination Dr. Arreola - Seasonal allergies - Smoker 01/25/2014 - Substance abuse (HCC) - Urge incontinence 06/22/2013 - Vitamin D deficiency 01/25/2014 PAST SURGICAL HISTORY Procedure Laterality Date - FECAL OCCULT BLOOD TEST 12/09/2017 negative - STRESS TEST 08/28/2014 NL - HERLINDA W/WO REMOVAL TUBE OVARY HERLINDA-BSO - TONSILLECTOMY HX - [facility] DELIVERY SCHEDULING ORDER 2002 SOCIAL HISTORY: Social History Substance Use Topics - Smoking status: Current Every Day Smoker Packs/day: 2.00 Years: 37.00 Start date: 1976 - Smokeless tobacco: Never Used - Alcohol use No Comment: None since 2011, TO 02/2016. FAMILY HISTORY Problem Relation Age of Onset - Coronary Artery Disease Mother - Diabetes Mother - Headache Mother - Hypertension Mother - COPD Mother Multiple mebers of maternal family. - Diabetes Brother - Stroke Father - Breast Cancer Sister - Cancer Sister Lung. Uncle. REVIEW OF SYSTEMS: GENERAL: Negative for: Weight gain, Fever or Chills, Weakness and Sleep difficulties. HEENT: Negative for: Headache, Impaired Vision, Glasses, Hearing Impairment, Ringing in Ears, Nosebleeds, Poor dental care, Bleeding Gums, Dentures NECK: Negative for: Swelling, Pain, Stiffness RESPIRATORY: Negative for: Cough, Blood in Sputum, Apnea GASTROINTESTINAL: Negative for: Trouble swallowing, Heartburn, Change in bowel habits, Blood in stool, Dark black stools MUSCULOSKELETAL: Negative for: Muscle or joint pain, Stiffness , Joint swelling NEUROLOGIC/PSYCHIATRIC: Negative for: Weakness, Paralysis, Numbness, Tingling, Tremor, Nervousness, Depressed mood, Memory loss SKIN: Negative for: Rashes, Itching HEMATOLOGICAL/LYMPHATIC: Negative for: Easy bruising , Easy bleeding ENDOCRINE: Negative for: Heat or cold intolerance, Excessive sweating, Frequent urination, Frequent thirst History by Deacon Buchanan MD I have reviewed the above information and made the appropriate corrections. A.L. Latham M.D. PHYSICAL EXAM: BP 109/75 Pulse 89 Ht 162.6 cm (5' 4) Wt 72.4 kg (159 lb 9.6 oz) SpO2 92% BMI 27.40 kg/m? General: Appears well nourished. In no acute distress. Skin: No clubbing. No cyanosis. Eyes: EOMI. Oropharynx: Teeth in good repair. Neck: Supple, + JVD with respiratory variation and elevation to 8cm at maximum, no Kussmaul's sign, no carotid bruits, carotids have a normal upstroke, no thyromegaly. Lungs: Clear to auscultation bilaterally. Heart: Regular rate and rhythm. PMI 5th ICS LMCL, S1nl, S2nl. Yes rub No knock, heart murmur none Abdomen: Soft, non-tender, BS normal, no organomegaly, no bruits. Ascites No Extremities: No peripheral edema bilaterally. Grade 2/4 distal pulses bilaterally. Neuro: Oriented x3, alert, cooperative, reflexes normal, CN II-XII grossly intact, gait coordinated. Lab: Component Latest Ref Rng AND Units 04/27/2018 WBC 3.70 - 11.00 k/uL 5.70 RBC 3.90 - 5.20 m/uL 5.20 Hemoglobin 11.5 - 15.5 g/dL 16.8 (H) Hematocrit 36.0 - 46.0 % 50.9 (H) MCV 80.0 - 100.0 fL 97.9 MCH 26.0 - 34.0 pG 32.3 MCHC 30.5 - 36.0 g/dL 33.0 RDW-CV 11.5 - 15.0 % 14.4 Platelet Count 150 - 400 k/uL 149 (L) MPV 9.0 - 12.7 fL 11.6 Neut% % 73.0 Abs Neut (ANC) 1.45 - 7.50 k/uL 4.15 Lymph% % 17.2 Abs Lymph 1.00 - 4.00 k/uL 0.98 (L) [place]% % 7.9 Abs [place] <0.87 k/uL 0.45 Eosin% % 1.4 Abs Eosin <0.46 k/uL 0.08 Baso% % 0.5 Abs Baso <0.11 k/uL 0.03 Nucleated Reds 0 /100 WBC 0.0 Absolute nRBC <0.01 k/uL <0.01 Diff Type Auto Diff Protein, Total 6.3 - 8.0 g/dL 6.7 Albumin 3.9 - 4.9 g/dL 4.0 Calcium 8.5 - 10.2 mg/dL 9.7 Bilirubin, Total 0.2 - 1.3 mg/dL 0.3 Alkaline Phosphatase 34 - 123 U/L 70 AST 13 - 35 U/L 17 Glucose 74 - 99 mg/dL 87 BUN 7 - 21 mg/dL 9 Creatinine 0.58 - 0.96 mg/dL 0.99 (H) Sodium 136 - 144 mmol/L 140 Potassium 3.7 - 5.1 mmol/L 4.4 Chloride 97 - 105 mmol/L 102 CO2 22 - 30 mmol/L 24 Anion Gap 9 - 18 mmol/L 14 ALT 7 - 38 U/L 15 eGFR- >60 eGFR-All Other Races . 58 Cholesterol, Total <200 mg/dL 152 Triglyceride <150 mg/dL 102 HDL Cholesterol >39 mg/dL 42 LDL Cholesterol <100 mg/dL 90 Non HDL Cholesterol <130 mg/dL 110 Fasting Time hrs 0 VLDL Cholesterol <30 mg/dL 20 TC:HDL Ratio <5.10 3.62 LDL:HDL Ratio <2.54 2.14 TSH 0.400 - 5.500 uU/mL 1.770 WSR 0 - 20 mm/hr 2 NT Pro BNP <125 pg/mL 145 (H) Troponin T 0.000 - 0.029 ng/mL <0.010 CK 42 - 196 U/L 107 CRP <0.9 mg/dL 0.4 Rheumatoid Factor <16 IU/mL <10 Echo; CONCLUSIONS: - Exam indication: Reassess pericardial effusion - The left ventricle is small. There is no left ventricular hypertrophy. Left ventricular systolic function is normal. EF = 70 ? 5% (2D biplane) Left ventricular diastolic function was not evaluated due to inconsistent or technically suboptimal data. - The right ventricle is moderately dilated. Right ventricular systolic function is moderately decreased. - Estimated right ventricular systolic pressure is 65 mmHg consistent with moderately severe pulmonary hypertension. Estimated right atrial pressure is 5 mmHg. Estimated right ventricular systolic pressure is 65 mmHg consistent with moderately severe pulmonary hypertension. Estimated right atrial pressure is 5 mmHg. - Moderate circumferential pericardial effusion with largest ( 2.0cm ) around the LV apex; posterolaterally. No chambers compromise. IVC is small and collapses. No cardiac tamponade physiology. - Exam was compared with the prior echocardiographic exam performed on 03/04/2018. similar findings of pericardial effusion on side- side comparison. After my examination and review of data, I make the following recommendations. ASSESSMENT/PLAN: Ms. Cruz Jacobo is a 57 year old female who presents for consultation regarding chronic idiopathic pericardial effusion that is not resolving on dual therapy with colchicine and Ibuprofen for an extended periods who is now likely symptomatic with a large pericardial effusion that on review of the echo appears amenable to anterior drainage. However, given this is likely to recur with echo guided drainage and a pericardial window would allow for biopsy simultaneously, we will arrange for expedited pericardial window with CTS. She has alarmingly had Physical exam today reveals elevated JVP, no lower extremity edema, no friction rub. Labs demonstrate: Normal inflammatory markers. Previously elevated YEN. Negative SLE evaluation. Normal Thyroid studies. Imaging studies show: Moderate circumferential pericardial effusion with largest ( 2.0cm ) around the LV apex; posterolaterally. No chambers compromise. IVC is small and collapses. No cardiac tamponade physiology. OVERALL ASSESSMENT/PLAN: -Referral for pericardial window -Age appropriate cancer screening -Return precautions given for worsening symptoms -Agree with stopping colchicine -Continue Ibuprofen for now -Continue Prevacid for GI protection Drug regimen: Single anti-inflammatory therapy Continue NSAID: Ibuprofen 800 mg three times a day Blood tests: Call Office or referring MD to schedule standing order ? inflammatory markers: CRP/ USCRP and WSR every 2 weeks ? CBC/CMP every 2 months I spent 75 minutes in this visit, with more than 50% of the time devoted to patient counseling. Deacon Buchanan MD 04/27/2018 STAFF PHYSICIAN NOTE OF PERSONAL INVOLVEMENT IN CARE I have reviewed the history and physical examination obtained and documented by the fellow and I personally participated in the hayes components. I have discussed the case and management of the patient's care. The following comments revise or confirm relevant hayes components of their note. IMPRESSION: This is a 57 year old female who presents with large pericardial effusion with chest pain R/o malignancy with weight loss and smoker PLAN: will recommend pericardial window with biopsy George Latham MD [facility] Referring Provider: SELF [[id number]] Allergies As of Date: 04/27/2018 Noted Allergy Reaction BEE STING 05/09/2013 7 - Swelling 12 - Shortness of Breath ALEVE (NAPROXEN) 05/09/2013 4 - Hives Date Reviewed: 04/27/2018 Reviewed by: Lucía Hackett Ma - Fully Assessed Primary Visit Diagnosis:Pericardial effusion [I31.3] Other Visit Diagnoses:Mixed hyperlipidemia [E78.2] Essential hypertension [I10] YEN positive [R76.8] Smoker [F17.200] Prescriptions as of 04/27/2018 Sig: SPIRIVA WITH HANDIHALER 18 MC* inhale contents of 1 capsule * PROAIR HFA 90 MCG/ACTUATION A* inhale 2 puffs by mouth four * BUPROPION HCL 150 MG TABLET,1* take 1 tablet by mouth once d* GABAPENTIN 400 MG CAPSULE take 3 capsules by mouth at b* OMEPRAZOLE 20 MG CAPSULE,DIONE* take 1 tablet by mouth daily * ROPINIROLE 0.5 MG TABLET take 2 tablets by mouth at be* BACLOFEN 20 MG TABLET take 1 tablet by mouth 2 to t* COLCHICINE 0.6 MG TABLET take 1 tablet by mouth twice * IBUPROFEN 800 MG TABLET take 1 tablet by mouth every * SYMBICORT 160 MCG-4.5 MCG/ACT* Inhale 2 Puffs as instructed * EPINEPHRINE 0.3 MG/0.3 ML INJ* Inject 0.3 mL intramuscularly* OXYBUTYNIN CHLORIDE ER 10 MG * take 1 tablet by mouth once d* ATORVASTATIN 10 MG TABLET take 1 tablet by mouth daily * AMLODIPINE 5 MG TABLET take 1 tablet by mouth once d* BENAZEPRIL 20 MG TABLET Take 1 tablet by mouth once d* ASPIRIN 81 MG TABLET,DELAYED * Take 1 tablet by mouth once d* Problem List As Of Date 04/27/2018 Noted Resolved Seasonal allergies [J30.2] Priority: B Routine gynecological examination [Z01.419] Priority: E More... Urge incontinence [N39.41] INVALID FOR* Priority: B Insomnia [G47.00] INVALID FOR* Priority: B Vitamin D deficiency [E55.9] INVALID FOR* Priority: A Smoker [F17.200] INVALID FOR* Priority: C More... Lipoma of buttock [D17.1] INVALID FOR* Priority: C More... More... Fibromyalgia [M79.7] INVALID FOR* Priority: B Essential hypertension [I10] INVALID FOR* Priority: A Chronic obstructive pulmonary disease (HCC) [J4*INVALID FOR* Priority: A More... Mixed hyperlipidemia [E78.2] INVALID FOR* Priority: A Gastroesophageal reflux disease without esophag*INVALID FOR* Priority: A Low back pain [M54.5] INVALID FOR* Priority: M More... Arthritis of both knees [M17.0] INVALID FOR* Priority: M More... Pericardial effusion [I31.3] INVALID FOR* Priority: A More... Carpal tunnel syndrome of left wrist [G56.02] INVALID FOR* Priority: M More... Obesity (BMI 35.0-39.9 without comorbidity) [E6*INVALID FOR*01/12/2017 Obesity (BMI 30.0-34.9) [E66.9] INVALID FOR* Priority: B More... Current use of proton pump inhibitor [Z79.899] INVALID FOR* More... Lumbar canal stenosis [M48.061] INVALID FOR* Priority: M More... Lumbar foraminal stenosis [M99.83] INVALID FOR* Priority: M Lumbar facet arthropathy (HCC) [M47.816] INVALID FOR* Priority: M CHF (congestive heart failure) (HCC) [I50.9] INVALID FOR* Priority: A More... YEN positive [R76.8] INVALID FOR* Priority: B More... Medicare annual wellness visit, subsequent [Z00*INVALID FOR* Priority: E More... Well adult exam [Z00.00] INVALID FOR* Priority: E More... Screening for colon cancer [Z12.11] INVALID FOR* Encounter for screening mammogram for breast ca*INVALID FOR* Elevated hemoglobin (HCC) [D58.2] INVALID FOR* Secondary polycythemia [D75.1] INVALID FOR* Priority: B More... Medications Discontinued During This Encounter omeprazole (PRILOSEC) 20 mg capsule 30 c* 5 11/29/2017 04/27/2018 Sig: take 1 capsule by mouth every morning 1/2 HOUR BEFORE BREAKFAST Disc: Other rOPINIRole (REQUIP) 0.5 mg tablet 60 t* 5 11/24/2017 04/27/2018 Sig: take 2 tablets by mouth at bedtime Disc: Other Encounter Status:[facility] 04/27/18 LOWER EXT ARTERIAL Observed: 04/21/2018 Status: F Source: [place] STUDY 7:54 PM [facility] Cardiovascular Services [address] [place] [address] 04/21/181946 MR#: [id number] Acct: [id number] Name: CRUZ JACOBO Rep #: [id number] : 1960 57 From: Gautam Macias MD Attending Dr: Deacon Rodriguez DPM Status: REG RCR Ordering Dr: Date: 04/21/18 Location: Sex: F C Admitted: Arterial Study - Arterial Study Arterial Study: This is a 57-year-old female with a history of peripheral arterial occlusive disease and smoking. The patient presents with a chronic nonhealing wound of the right lower extremity. She is brought to the noninvasive vascular laboratory at this time for the purpose of bilateral noninvasive lower extremity arterial assessment. Doppler signal assessment was used to evaluate the pulses at ankle level bilaterally. The posterior tibial and dorsalis pedis pulses were triphasic bilaterally. Segmental limb pressures were obtained bilaterally. The right ankle pressure, as determined by posterior tibial pulse, was measured at 148 mmHg. The right ankle pressure, as determined by dorsalis pedis pulse, was measured at 147 mmHg. The right digital pressure was measured at 91 mmHg. The left ankle pressure, as determined by posterior tibial pulse, was measured at 140 mmHg. The left ankle pressure, as determined by dorsalis pedis pulse, was measured at 141 mmHg. The left digital pressure was measured at 129 mmHg. Pulse volume recordings were obtained bilaterally and segmentally. Waveform amplitudes appeared to be satisfactory at low thigh, calf, and ankle levels bilaterally. Digital waveforms appeared to be diminished bilaterally. Resting ankle brachial indices were calculated bilaterally. The resting right ankle brachial index was calculated to be 1.08. The resting left ankle brachial index was calculated to be 1.03. Digital brachial indices were calculated bilaterally. The right digital-brachial index was calculated to be 0.66. The left digital-brachial index was calculated to be 0.94. Impression: Based upon the findings of this resting noninvasive lower extremity arterial study, arterial perfusion to ankle level appears to be normal bilaterally. Triphasic waveforms are noted at ankle level bilaterally. Resting ankle brachial indices are bilaterally normal. The right digital-brachial index is mildly diminished, suggesting the presence of mild, distal, small vessel arterial occlusive disease in the right lower extremity. The left digital-brachial index appears normal, suggesting relatively normal arterial perfusion at digital level in the left lower extremity. 04/21/181953 <Electronically signed by Gautam Macias MD> Date Gautam Macias MD CC: DPMickie Rodriguez; Tex Miller MD Date Dictated: 04/21/181946 Date Transcribed: 04/21/181946 Tobacco Stemmer: CISCO Blount VENOUS DUPLEX LOWER Observed: 04/21/2018 Status: F Source: [place] EXTREMITY 10:28 AM [facility] Cardiovascular Services [address] [place] [address] Venous Duplex US - [facility] 04/18/18 1002 MR#: [id number] Acct: [id number] Name: CRUZ JACOBO Rep #: [id number] : 1960 57 From: Gautam Macias MD Attending Dr: Deacon Rodriguez DPM Status: REG RCR Ordering Dr: Deacon Rodriguez DPM Date: 04/18/18 Location: Sex: F C Admitted: [id number] TAG_START Cardiovascular Services Venous Doppler [address] [place] [address] Ordering Physician: Deacon Rodriguez TAG_ENDED TAG_START Name: CRUZ JACOBO Study Date: 04/18/2018 10:02 AM Patient Location: [facility] : 1960 Gender: Female Age: 57 yrs TAG_ENDED Reason For Study: Rt jurado ulcer RIGHT LEFT CFV is compressible, spontaneous, phasic, CFV is compressible, spontaneous, phasic, competent and demonstrates normal competent, and demonstrates normal augmentation. augmentation. FV is compressible, spontaneous, phasic, FV is compressible, spontaneous, phasic, competent and demonstrates normal competent and demonstrates normal augmentation. augmentation. POP V is compressible, spontaneous, phasic, POP V is compressible, spontaneous, phasic, competent and demonstrates normal competent and demonstrates normal augmentation. augmentation. T/P Trunk is compressible. T/P Trunk is compressible. PTV is compressible. PTV is compressible. RT PerV is compressible. LT PerV is compressible. SFJ is competent. SFJ is competent. GSV is competent throughout. GSV is INCOMPETENT thoughout for greater than SSV is competent. 0.5 seconds with a diameter of 0.20 x 0.20 Procedure cm. Exam performed in department. SSV is INCOMPETENT for greater than 0.5 A preliminary report was called and/or faxed seconds with a diameter of 0.19 x 0.25 cm. to WC. <> Interpretation Summary Deep veins of the lower extremities are bilaterally patent and compressible segmentally. There is no evidence of deep vein thrombosis on either side. Valvular competence appears intact within the proximal deep venous systems bilaterally. The greater saphenous veins appear bilaterally patent and compressible segmentally. Sapheno-femoral junctions are bilaterally competent . The right greater saphenous vein appears segmentally competent. The left greater saphenous vein appears segmentally incompetent. The right small saphenous vein is patent and competent. The left small saphenous vein is patent and incompetent. TAG_START TAG_ENDED Ordering Physician: Deacon Rodriguez Referring Physician: Tex Miller Performed By: Alena Brooks RVT and Student 04/21/18 1028 Date Gautam Macias MD CC: KEVON Rodriguez; Tex Miller MD Date Dictated: 04/18/18 1002 Date Transcribed: 04/21/18 1028 Tobacco Stemmer: Signed PROGRESS Observed: 04/15/2018 Status: COMPLETED Source: [place] 3:12 PM [facility] HNO ID: [id number] Author: Juan (Health Relish Blender) Greg Service: (none) Author Type: Health Educator Type: Progress Notes Filed: 04/15/2018 3:16 PM Note Text: [facility] WELLNESS ECOACHING PATIENT NAME: Cruz Jacobo AGE: [age] year old SEX: female Update Type: Progress: Quartely Coaching Program: Tobacco Cessation Coaching Status: Active Email Engagement from Patient: 1x per week Patient stated Previous Goals: Cut back on cigarettes Increase physical activity: walk 30 min per day Decrease tobacco use: with bupropion/patches - patches cause physiological issues though and will only use in periods of strong urges. Progress towards Goals: Expected progress. Cruz has done well with cutting back and we have set an official quit date of May 15 as she stated she wants to quit before . She struggles with getting in the 30 minutes of activity due to lower back pain to which I provided her stretches and exercises to help improve hip/hamstring/lower back strength and flexibility. Juan Garza Health Relish Blender, Hotel General Manager April 15, 2018 3:12 PM HOSP Observed: 04/15/2018 Status: COMPLETED Source: [place] 12:00 AM [facility] REPOSITORY Patient Update (WIQ) MARYQUEENIECRUZ ([id number]) 1960 F Date Time Provider Department 04/15/18 JUAN GARZA (HEALTH DATA PROCESSING SUPERVISOR)ANDREAS During your visit today, we recorded the following information about you: Juan Garza Health Relish Blender 04/15/2018 3:16 PM Signed [facility] WELLNESS ECOACHING PATIENT NAME: Cruz Jacobo AGE: [age] year old SEX: female Update Type: Progress: Quartely Coaching Program: Tobacco Cessation Coaching Status: Active Email Engagement from Patient: 1x per week Patient stated Previous Goals: Cut back on cigarettes Increase physical activity: walk 30 min per day Decrease tobacco use: with bupropion/patches - patches cause physiological issues though and will only use in periods of strong urges. Progress towards Goals: Expected progress. Cruz has done well with cutting back and we have set an official quit date of May 15 as she stated she wants to quit before Thanks. She struggles with getting in the 30 minutes of activity due to lower back pain to which I provided her stretches and exercises to help improve hip/hamstring/lower back strength and flexibility. Juan Garza, Health Relish Blender, Hotel General Manager April 15, 2018 3:12 PM Allergies As of Date: 04/15/2018 Noted Allergy Reaction BEE STING 05/09/2013 7 - Swelling 12 - Shortness of Breath ALEVE (NAPROXEN) 05/09/2013 4 - Hives Date Reviewed: 03/30/2018 Reviewed by: Taylor Chavarria Ct - Fully Assessed Reason for Visit: Patient Education [91] Cmt: eCoach Update Prescriptions as of 04/15/2018 Sig: BUPROPION HCL 150 MG TABLET,1* take 1 tablet by mouth once d* GABAPENTIN 400 MG CAPSULE take 3 capsules by mouth at b* OMEPRAZOLE 20 MG CAPSULE,DIONE* take 1 tablet by mouth daily * ROPINIROLE 0.5 MG TABLET take 2 tablets by mouth at be* BACLOFEN 20 MG TABLET take 1 tablet by mouth 2 to t* COLCHICINE 0.6 MG TABLET take 1 tablet by mouth twice * IBUPROFEN 800 MG TABLET take 1 tablet by mouth every * SYMBICORT 160 MCG-4.5 MCG/ACT* Inhale 2 Puffs as instructed * TIOTROPIUM BROMIDE 18 MCG CAP* Inhale 1 capsule as instructe* EPINEPHRINE 0.3 MG/0.3 ML INJ* Inject 0.3 mL intramuscularly* ALBUTEROL SULFATE HFA 90 MCG/* Inhale 2 Puffs as instructed * OMEPRAZOLE 20 MG CAPSULE,DIONE* take 1 capsule by mouth every* OXYBUTYNIN CHLORIDE ER 10 MG * take 1 tablet by mouth once d* ROPINIROLE 0.5 MG TABLET take 2 tablets by mouth at be* ATORVASTATIN 10 MG TABLET take 1 tablet by mouth daily * AMLODIPINE 5 MG TABLET take 1 tablet by mouth once d* BENAZEPRIL 20 MG TABLET Take 1 tablet by mouth once d* ASPIRIN 81 MG TABLET,DELAYED * Take 1 tablet by mouth once d* Problem List As Of Date 04/15/2018 Noted Resolved Seasonal allergies [J30.2] Priority: B Routine gynecological examination [Z01.419] Priority: E More... Urge incontinence [N39.41] INVALID FOR* Priority: B Insomnia [G47.00] INVALID FOR* Priority: B Vitamin D deficiency [E55.9] INVALID FOR* Priority: A Smoker [F17.200] INVALID FOR* Priority: C More... Lipoma of buttock [D17.1] INVALID FOR* Priority: C More... More... Fibromyalgia [M79.7] INVALID FOR* Priority: B Essential hypertension [I10] INVALID FOR* Priority: A Chronic obstructive pulmonary disease (HCC) [J4*INVALID FOR* Priority: A More... Mixed hyperlipidemia [E78.2] INVALID FOR* Priority: A Gastroesophageal reflux disease without esophag*INVALID FOR* Priority: A Low back pain [M54.5] INVALID FOR* Priority: M More... Arthritis of both knees [M17.0] INVALID FOR* Priority: M More... Pericardial effusion [I31.3] INVALID FOR* Priority: A More... Carpal tunnel syndrome of left wrist [G56.02] INVALID FOR* Priority: M More... Obesity (BMI 35.0-39.9 without comorbidity) [E6*INVALID FOR*01/12/2017 Obesity (BMI 30.0-34.9) [E66.9] INVALID FOR* Priority: B More... Current use of proton pump inhibitor [Z79.899] INVALID FOR* More... Lumbar canal stenosis [M48.061] INVALID FOR* Priority: M More... Lumbar foraminal stenosis [M99.83] INVALID FOR* Priority: M Lumbar facet arthropathy (HCC) [M47.816] INVALID FOR* Priority: M CHF (congestive heart failure) (HCC) [I50.9] INVALID FOR* Priority: A More... YEN positive [R76.8] INVALID FOR* Priority: B More... Medicare annual wellness visit, subsequent [Z00*INVALID FOR* Priority: E More... Well adult exam [Z00.00] INVALID FOR* Priority: E More... Screening for colon cancer [Z12.11] INVALID FOR* Encounter for screening mammogram for breast ca*INVALID FOR* Elevated hemoglobin (HCC) [D58.2] INVALID FOR* Secondary polycythemia [D75.1] INVALID FOR* Priority: B More... Follow-up and Disposition History Recorded Encounter Status:Closed by [facility] WOUND CTR HISTORY Observed: 04/07/2018 Status: F Source: [facility] AND PHYSICAL 1:10 PM [facility] [address] [place] [address] Wound Ctr History AND Physical 04/07/18 1243 MR#: [id number] Acct: [id number] Name: CRUZ JACOBO Rep #: [id number] : 1960 57 From: Deacon Rodriguez DPM PCP: Tex Miller MD Status: REG RCR Y Location: WC (1) Ulcer of right lower extremity with fat layer exposed Status: Acute Current Visit: Yes Code(s): L97.912 - Non- pressure chronic ulcer of unspecified part of right lower leg with fat layer exposed (2) Pain in right lower leg Status: Acute Current Visit: Yes Code(s): M79.661 - Pain in right lower leg (3) PVD (peripheral vascular disease) Status: Suspected Current Visit: Yes Code(s): I73.9 - Peripheral vascular disease, unspecified (4) Edema, lower extremity Status: Acute Current Visit: Yes Code(s): R60.0 - Localized edema (5) Delayed wound healing Status: Acute Current Visit: Yes Code(s): T14.8XXD - Other injury of unspecified body region, subsequent encounter History of Present Illness Date of Service: 04/07/18 Chief Complaint: Right anterior lower leg ulcer/laceration History of Wound: This 57-year-old female was referred to the wound healing center by her primary care doctor for a nonhealing ulcer/laceration to the right anterior lower leg. Patient says this started approximately 3 weeks ago when she shut the car door and it created a laceration to her right lower leg. She said she tried to dress the area with Neosporin and bandages. She continued to notice the area not healing as well as some slight redness and she made an appointment to see her primary care doctor. She was started on antibiotics and has since finished prescriptions for Bactrim and cephalexin. Patient is also been using mupirocin topically to the area. She says that the area is not as red as it used to be, but that the area is still painful. She denies any purulence or extending cellulitis. She also denies any feeling of nausea, vomiting, fever, chills. Past Medical History Allergies/Adverse Reactions: Allergies bee venom protein (honey bee) Allergy (Verified 04/07/18 10:56) Shortness of breath naproxen [From Aleve] Adverse Reaction (Verified 04/07/18 10:56) Rash Home Medications: Ambulatory Orders Medication Instructions Recorded Albuterol IH (ProAir) [Proair Hfa 2 puff INHALATION Q4H PRN PRN 04/07/18 (SP)Vent Pts] Amlodipine [Norvasc] 5 mg PO DAILY 04/07/18 Aspirin E.C. [Ecotrin] 81 mg PO DAILY@0800 04/07/18 Smoking Status: Current every day smoker Review of Systems Constitutional: Denies: Chills, Fever, Weight Change Cardiovascular: Denies: Chest Pain, Palpitations Respiratory: Denies: Cough, Shortness of Breath Gastrointestinal: Denies: Diarrhea, Nausea, Vomiting Musculoskeletal: Reports: Leg Pain Skin: Reports: Wounds - Physical Exam Vital Signs Temp Pulse Resp BP 96.6 F L 86 20 H 118/87 H 04/07/18 10:24 04/07/18 10:24 04/07/18 10:24 04/07/18 10:24 General: Alert, Oriented x3, Cooperative, No apparent distress Extremities: No cyanosis, Capillary Refill Less than 3 Seconds - To the distal digits of the right foot, No Calf Tenderness - Negative Hyun and Bloom sign, Diminished Peripheral Pulses - DP pulses nonpalpable and PT pulses palpable, Edema - Minor lower extremity edema Skin: Ulcer/ Wound - Ulcer with fat layer exposed to the right anterior lower leg. Measurements are noted below. The base is a mixture of necrotic tissue/eschar, fibrin, adherent slough, granular tissue. There is no purulence, no extending cellulitis, no significant increase in warmth, no malodor, no probing to bone, no tracking, no undermining. Wound Measurements and Assessment WC - Nurse 1 - General Ulcer Measurement Start: 04/07/18 10:21 Freq: Status: Active Protocol: Activity Type Activity Date Activity User E-Sign Co-Sign Detail Recorded Client Recorded Date Recorded By Document 04/07/18 10:24 DL [id number] 04/07/18 10:50 DL Wound Center Nurse 1 [Ulcer Assessment] #1 R Jurado -Current Size (cm) - Length 3.7 -Current Size (cm) - Width 3.1 - Nurse 2 - General Ulcer CM Notes Start: 04/07/18 10:21 Freq: Status: Active Protocol: Activity Type Activity Date Activity User E-Sign Co-Sign Detail Recorded Client Recorded Date Recorded By Document 04/07/18 11:20 DV [id number] 04/07/18 11:36 DV Wound Center Nurse 2 [Procedure/Treatment] #1 R Jurado -Time 11:21 -Correct Patient Yes -Correct Side, Site, Position Yes -Correct Procedure Yes Musculoskeletal: Tenderness - With manipulation of ulcer site Neurological: Sensory exam intact to light touch and pain Psych/Mental Status: Normal Affect, Appropriate Debridement Note Post-Debridement Measurements/Treatment - Nurse 2 - General Ulcer CM Notes Start: 04/07/18 10:21 Freq: Status: Active Protocol: Activity Type Activity Date Activity User E-Sign Co-Sign Detail Recorded Client Recorded Date Recorded By Document 04/07/18 11:20 DV [id number] 04/07/18 11:36 DV Wound Center Nurse 2 #1 R Jurado -Time 11:21 -Correct Patient Yes Wound debrided: Right anterior lower leg Laterality: Right Type of Debridement: Excisional debridement Anesthesia Used: 4% Lidocaine Solution, - - 5 cc 1% lidocaine with epinephrine injected Depth: in the subcutaneous layer Percentage of wound debrided: 100 Instrument Used: 7mm curette, #15 blade, Forceps Tissue Removed: Necrotic tissue/eschar, adherent slough, fibrin Severity: Fat Layer Exposed Amount of bleeding with debridement: Mild Bleeding Controlled with: Pressure Patient tolerated procedure well Assessment/Plan Active Problems Ulcer of right lower extremity with fat layer exposed (Acute) Pain in right lower leg (Acute) Edema, lower extremity (Acute) Delayed wound healing (Acute) Assessment: Ulcer right anterior lower leg. Pain right lower leg. Edema lower extremity. Other comorbidities Plan: Initial patient examination and evaluation was performed. A subcutaneous debridement was performed as noted in the clinical panel. Once complete the ulcer site was carefully cleansed with normal sterile saline, and then cultures were taken and sent for aerobic, anaerobic, and MRSA PCR evaluation. Next, the ulcer site was dressed with Aquacel Ag, followed by dry sterile dressing and Tubigrip for compression. Patient is to change her dressing in this manner daily. Keeping pressure off of the ulcer site was discussed lizett in great detail. Baseline lab work was ordered today, including CBC with differential, CMP, prealbumin, hemoglobin A1c. LEAS and venous Doppler exams were also ordered. These results will be reviewed at the patient's follow-up visit. Dressing supplies were ordered for this patient. I also recommend nutritional supplementation with a high-protein diet in order to optimize ulcer healing potential. The patient was educated on all signs and symptoms of local and systemic infection and she is to go to the emergency room immediately should she notice any of these. All questions were answered to the patient's satisfaction. Smoking cessation was discussed. The patient will follow-up in clinic in 1 week to check on progress, or sooner if needed. 04/07/18 1310 <Electronically signed by Deacon Rodriguez DPM> Date Deacon Rodriguez DPM CC: Signed CBC W/DIFF, AUTOMATED Collected: 04/07/2018 Status: F Source: [place] 11:45 AM [facility] [place] [facility] TYPE CODE TESTS RESULT OUT OF RANGE REFERENCE UNITS LAB L100.1000 4.4-11.0 K/mm3 Normal WBC 5.6 LAB L100.1200 4.2-5.4 M/mm3 Normal RBC 5.18 LAB L100.1300 12.0-15.0 g/dl High HGB 16.7 LAB L100.1400 37-47 % High HCT 49.8 LAB L100.1500 81-99 fL Normal MCV 96.1 LAB L100.1600 27.0-32.0 pg High MCH 32.2 LAB L100.1700 32-36 g/gl Normal MCHC 33.5 LAB L100.1810 11.6-14.6 % Normal RDW CV 14.4 LAB L100.1820 35.1-43.9 fl High RDW SD 50.7 LAB L100.1900 150-450 K/mm3 Normal PLT 165 LAB L100.2000 6.2-12.0 fl Normal MPV 11.3 LAB L100.2100 47-70 % Normal NEUT% 63.6 LAB L100.2200 19-41 % Normal LY% 25.1 LAB L100.2300 0-10 % Normal MONO% 9.3 LAB L100.2400 0-5 % Normal EO% 1.6 LAB L100.2500 0-1 % Normal BASO% 0.4 LAB L100.2550 0.0-0.9 % Normal IM GRAN % 0.000 Result Comment: IG% - Immature Granulocytes (promyelocytes, myelocytes and metamyelocytes) > 1% indicates that a LEFT SHIFT is Present. LAB L100.2620 2.0-7.7 X10 3/uL Normal Absolute Neut 3.6 LAB L100.2720 0.83-4.51 X10 3/ul Normal Absolute Lymph 1.41 Performed By: #### L100.0100 #### [facility] [address] [place], [address] COMPREHENSIVE METABOLIC Collected: 04/07/2018 Status: F Source: [facility] 11:45 AM [facility] [place] [facility] TYPE CODE TESTS RESULT OUT OF RANGE REFERENCE UNITS LAB L501.0100 74-106 mg/dL Normal GLU 78 Result Comment: Please note revised GLUCOSE reference range effective 2017. LAB L501.1000 7-18 mg/dL Normal BUN 13 LAB L501.1100 0.55-1.02 mg/dL Normal CREAT,SERUM 0.96 Result Comment: The validity of the calculated GFR AND GFRAA in patients over 70 years has not been determined. Clinical correlation is essential. LAB L501.1110 >60 mL/min Normal EST GFR 64 Result Comment: Non- GFR Calc LAB L501.1115 >60 mL/min Normal EST GFR - AA 78 Result Comment: GFR Calc LAB L501.1255 ml/min Normal Estimated CRCL 56.50 LAB L501.1300 10-20 RATIO Normal BUN/CRE 13.6 LAB L501.1500 6.4-8. g/dL Normal 2 T PROT 7.1 LAB L501.1800 3.2-5. g/dL Normal 0 ALB 3.6 LAB L501.1950 2.2-4. g/dL Normal 2 GLOB 3.5 LAB L501.2000 0.9-2. RATIO Normal 4 A/G 1.0 LAB L501.2200 8.5-10 mg/dL Normal .1 CA 9.0 LAB L501.4100 15-37 U/L Normal AST 17 LAB L501.4305 45-117 U/L Normal ALK P 79 LAB L501.4405 13-56 U/L Normal ALT 25 LAB L501.4600 0.20-1 mg/dL Normal .00 T BILI 0.40 LAB L501.5300 136-14 mmol/L Normal 5 NA 137 LAB L501.5600 3.5-5. mmol/L Normal 1 K 4.4 LAB L501.5900 98-107 mmol/L Normal CL 102 LAB L501.6100 21.0-3 mmol/L Normal 2.0 CO2 26.0 LAB L501.6200 5-15 Normal GAP 9 Performed By: #### L500.4050, L506.0500 #### [facility] [address] [place], [address] PREALBUMIN Collected: 04/07/2018 Status: F Source: [place] 11:45 AM [facility] [place] TYPE CODE TESTS RESULT OUT OF RANGE REFERENCE UNITS LAB L506.0500 20.0-40.0 mg/dL Normal PREALBUMIN 21.4 Performed By: #### L500.4050, L506.0500 #### [facility] [address] [place], [address] HEMOGLOBIN A1C Collected: 04/07/2018 Status: F Source: [place] 11:45 AM [facility] [place] [facility] TYPE CODE TESTS RESULT OUT OF RANGE REFERENCE UNITS LAB L501.9985 4.2-6.3 % Normal HGB A1C 5.5 Performed By: #### L501.9985 #### [facility] [facility] [place], [address] Observed: 04/07/2018 Status: F Source: [place] CULTURE, DEEP WOUND 11:45 AM [facility] [place] [facility] Gram Stain Gram Stain 3+ Red Blood Cells No organisms seen Wound Culture No growth aerobically. Cult, Anaerobic No growth in 5 days. Performed By: #### M100.1500 #### [facility] [address] [place], [address] MRSA WOUND DNA BY Collected: 04/07/2018 Status: F Source: [place] PCR 11:30 AM [facility] [place] [facility] Order Comment: Specimen Source? WOUND TYPE CODE TESTS RESULT OUT OF RANGE REFERENCE UNITS LAB L8200.1100 Negative Normal MRSA Negative RESULT LAB L8200.1150 Negative Normal SA RESULT NEGATIVE Performed By: #### L8200.1075 #### [facility] [address] [place], [address] PROGRESS Observed: 04/06/2018 Status: COMPLETED Source: [place] 11:38 AM [facility] REPOSITORY O ID: [id number] Author: Taylor Waters Service: (none) Author Type: (none) Type: Progress Notes Filed: 04/06/2018 11:38 AM Note Text: Radiology Service Progress Note PATIENT NAME: Cruz Jacobo DATE OF SERVICE: April 06, 2018 TIME: 11:38 AM PATIENT IDENTITY VERIFICATION COMPLETED USING TWO (2) METHODS: Patient confirmed name verbally and Date of . PATIENT GENDER DATA: Female. status: : No status: NO. PATIENT RELEVANT IMPLANT DATA REVIEWED: Not Applicable CONTRAST INDUCED NEPHROPATHY RISK FACTORS: Not applicable CREATININE: Creatinine Date Value Ref Range Status 03/25/2018 0.81 0.58 - 0.96 mg/dL Final 03/25/2018 0.79 0.58 - 0.96 mg/dL Final 01/26/2018 1.05 (H) 0.58 - 0.96 mg/dL Final eGFR-All Other Races Date Value Ref Range Status 03/25/2018 >60 . Final Comment: eGFR (Estimated GFR) Units of measure: mL/min/1.73 meters squared eGFR is derived from the reexpressed MDRD Study equation using the following parameters: serum creatinine, age, gender and race. The creatinine assay has been calibrated to be traceable to IDMS. An eGFR <60 mL/min/1.73m2 for >3 months is consistent with chronic kidney disease. Refer to KDOQI guidelines for clinical interpretation. In patients with unstable renal function, e.g. those with acute kidney injury, the eGFR may not accurately reflect actual GFR. 03/25/2018 >60 . Final Comment: eGFR (Estimated GFR) Units of measure: mL/min/1.73 meters squared eGFR is derived from the reexpressed MDRD Study equation using the following parameters: serum creatinine, age, gender and race. The creatinine assay has been calibrated to be traceable to IDMS. An eGFR <60 mL/min/1.73m2 for >3 months is consistent with chronic kidney disease. Refer to KDOQI guidelines for clinical interpretation. In patients with unstable renal function, e.g. those with acute kidney injury, the eGFR may not accurately reflect actual GFR. eGFR- Date Value Ref Range Status 03/25/2018 >60 Final 03/25/2018 >60 Final P.O.C.T. RESULTS: POC done: Yes, See Lab Tab April 06, 2018 RADIOLOGIST NOTIFIED?: No ALLERGIES: Reviewed and unchanged CONTRAST ALLERGY: NO. PERIPHERAL IV ACCESS: Ambulatory: IV type: A peripheral IV was started in the Left antecubital site with a Angio cath: 22 gauge., Site assessment: Clean,Dry and Intact, Site disposition Discontinued RADIOLOGY DEPARTMENT: CT; Exam(s) Completed: Chest Abdomen Pelvis SIGNED BY: Taylor Chavarria Ct April 06, 2018 11:[address] CHEST W IVCON Observed: 04/06/2018 Status: F Source: [place] 9:28 AM [facility] REPOSITORY * * *Final Report* * * DATE OF EXAM: Apr 06 2018 9:28AM [facility] 0539 - CT CHEST W IVCON / PROCEDURE REASON: multiple diagnoses * * * * Physician Interpretation * * * * EXAMINATION: CHEST CT WITH CONTRAST CLINICAL HISTORY: Smoker Weight loss Technique: Spiral CT acquisition of the chest from the thoracic inlet to the upper abdomen following IV contrast. MQ: CTCWR_5 Contrast: 150 mL Omnipaque [address] Dose-Length Product: 750 mGy*cm CT Dose Reduction Employed: Automated exposure control(AEC) and iterative recon Comparison: RESULT: Limitations: None. Lines, tubes, and devices: None. Lung parenchyma and pleura: There are emphysematous changes primarily in the upper lobes. No infiltrate, pleural effusion or pneumonia thorax. No pulmonary lesions. Thoracic inlet, heart, and mediastinum: No lymphadenopathy in the axillary, mediastinal, or hilar regions. The thoracic aorta is normal in caliber. Dilated main pulmonary artery indicative of pulmonary hypertension. The cardiac chambers are normal in size. No coronary artery atherosclerotic calcifications are noted, although the study is not optimized for coronary assessment. Prominent pericardial effusion which measures 3.5 cm in maximum thickness. Bones and soft tissues: No destructive bone lesion. There is mild degenerative changes in the spine. Chest wall is unremarkable. Upper abdomen: Reported separately IMPRESSION: Prominent pericardial effusion. Emphysematous changes without active pulmonary disease Tobacco Stemmer: [facility] Transcribe Date/Time: Apr 07 2018 1:47P Dictated by : YELENA ORR MD This examination was interpreted and the report reviewed and electronically signed by: YELENA ORR MD on Apr 07 2018 1:51PM EST [id number] CT ABD/PEL W IVCON Observed: 04/06/2018 Status: F Source: [place] 9:28 AM [facility] REPOSITORY * * *Final Report* * * DATE OF EXAM: Apr 06 2018 9:28AM [facility] 0530 - CT ABD/PEL W IVCON / PROCEDURE REASON: multiple diagnoses * * * * Physician Interpretation * * * * EXAMINATION: CT ABDOMEN AND PELVIS WITH IV CONTRAST CLINICAL HISTORY: Weight loss TECHNIQUE: CT of the abdomen and pelvis was performed using standard technique, scanning from just above the dome of the diaphragm to the symphysis pubis. MQ: CTAP_3 Contrast: IV: 150 ml of Omnipaque 300 Oral: 50 ml of 50ML Omnipaque [address] Radiation dose: Integrated Dose-length product (DLP) for this visit = 750 mGy*cm. CT Dose Reduction Employed: Automated exposure control(AEC) and iterative recon COMPARISON: 04/06/2018 RESULT: Liver: No mass. Normal morphology. Minimal focal fat adjacent to the falciform fissure. Biliary: No bile duct dilation. No obvious gallstones. Spleen: No mass. No splenomegaly. Pancreas: No mass or duct dilation. Adrenals: There is thickening of the left adrenal gland and to a lesser extent the right which was also seen on the CT chest from 09/16/2017 likely from hyperplasia. No mass. Kidneys: Normal cortical enhancement without stones, mass or obstruction. GI tract: Small bowel loops are not dilated. Prominent fecal load is in the colon. No colonic wall thickening or pericolic stranding. Appendix is normal. Lymph nodes: No abdominal or pelvic lymphadenopathy. Mesentery/Peritoneum: No ascites or mass. Retroperitoneum: No mass. Vasculature: The celiac axis and SMA are patent. The portal vein and branches, splenic vein, SMV, and hepatic veins are patent. The aorta is normal in size and there is calcification in the wall. Pelvis: No mass, ascites or fluid collection. Bladder wall is smooth. Status post hysterectomy. Bones/Soft Tissues: There are degenerative changes in the spine. Large fatty lipoma noted gluteal muscle on the left seen on a prior pelvic MRI. Lower thorax: Reported separately IMPRESSION: Moderate fecal obstipation No acute intra-abdominal or intrapelvic pathology Gluteal lipoma on the left Tobacco Stemmer: [facility] Transcribe Date/Time: Apr 07 2018 1:50P Dictated by : YELENA ORR MD This examination was interpreted and the report reviewed and electronically signed by: YELENA ORR MD on Apr 07 2018 1:57PM EST [id number] LIPID PANEL, BASIC Collected: 04/06/2018 Status: F Source: [place] 8:01 AM [facility] REPOSITORY TYPE CODE TESTS RESULT OUT OF REFERENCE UNITS RANGE LAB CHOL <200 mg/dL Cholesterol 157 Result Comment: <200 mg/dL, Desirable 200-239 mg/dL, Borderline high >239 mg/dL, High LAB TRIGLY <150 mg/dL Triglyceride 149 Result Comment: <150 mg/dL, Normal 150-199 mg/dL, Borderline high 200-499 mg/dL, High >499 mg/dL, Very high LAB HDL >39 mg/dL HDL-Cholesterol Low 36 Result Comment: 40-59 mg/dL, Acceptable >59 mg/dL, High: Negative risk factor for coronary heart disease <40 mg/dL, Low: Positive risk factor for coronary heart disease LAB LDL <100 mg/dL LDL-Cholesterol 91 Result Comment: <100 mg/dL, Optimal 100-129 mg/dL, Near optimal/above optimal 130-159 mg/dL, Borderline high 160-189 mg/dL, High >189 mg/dL, Very high Secondary prevention optimal LDL Cholesterol levels are recommended to be < 70 mg/dL LAB NONHDL <130 mg/dL Non HDL Cholesterol 121 Result Comment: <130 mg/dL, Optimal 130-159 mg/dL, Near optimal/above optimal 160-189 mg/dL, Borderline high 190-219 mg/dL, High >219 mg/dL, Very high Secondary prevention optimal non HDL Cholesterol levels are recommended to be < 100 mg/dL LAB FT hrs Fasting Time 12 LAB VLDL <30 mg/dL High VLDL Cholesterol 30 LAB TCHDL <5.10 TC:HDL Ratio 4.36 LAB LDLHDL <2.54 LDL:HDL Ratio 2.53 Result Comment: Reference: 1. National Cholesterol Education Program ATP III Guideline At-A-Glance Quick Desk Reference: National Heart, Lung, and Blood [place]. National Institutes of Health. 2001: NIH Publication No. 01-3305. 2. An International Atherosclerosis Society position paper: global recommendations for the management of dyslipidemia: executive summary, Atherosclerosis. 2014: 232(2):410-413. Performed By: #### LIPB #### [facility] [address] [address] PROGRESS Observed: 03/28/2018 Status: COMPLETED Source: [place] 11:18 AM [facility] REPOSITORY HNO ID: [id number] Author: Krunal Landeros Service: (none) Author Type: Physician Director Learning And Development Type: Progress Notes Filed: 03/28/2018 12:50 PM Note Text: Chief Complaint Patient presents with: Recheck HPI Cruz Jacobo is a 57 year old female who presents here today for Recheck. Wound without improvement but doesn't look worse. Pain has worsened. Has been taking keflex Last Tdap may 2016 Past medical history, appointments, medications, allergies reviewed. 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 Ruiz, on colchicine - Routine gynecological examination Dr. Arreola - Seasonal allergies - Smoker 01/25/2014 - Substance abuse (HCC) - Urge incontinence 06/22/2013 - Vitamin D deficiency 01/25/2014 Previous Surgical History PAST SURGICAL HISTORY Procedure Laterality Date - FECAL OCCULT BLOOD TEST 12/09/2017 negative - STRESS TEST 08/28/2014 NL - HERLINDA W/WO REMOVAL TUBE OVARY HERLINDA-BSO - TONSILLECTOMY HX - [facility] DELIVERY SCHEDULING ORDER 2002 Family History FAMILY HISTORY Problem Relation Age of Onset - Coronary Artery Disease Mother - Diabetes Mother - Headache Mother - Hypertension Mother - COPD Mother Multiple mebers of maternal family. - Diabetes Brother - Stroke Father - Breast Cancer Sister - Cancer Sister Lung. Uncle. Patient Allergies ALLERGIES Allergen Reactions - Bee Sting Swelling, Shortness of Breath - Aleve [Naproxen] Hives Current Medications Current Outpatient Prescriptions on File Prior to Visit: cephALEXin (KEFLEX) 500 mg capsule Take 1 capsule by mouth four times daily for 10 days. mupirocin (BACTROBAN) 2 % cream Apply 1 application to affected area three times daily for 10 days. buPROPion HCl, smoking deter, 150 mg Tb12 take 1 tablet by mouth once daily for 2 weeks then take 1 tablet twice a day gabapentin (NEURONTIN) 400 mg capsule take 3 capsules by mouth at bedtime omeprazole (PRILOSEC) 20 mg capsule take 1 tablet by mouth daily 1/2 HOUR BEFORE BREAKFAST rOPINIRole (REQUIP) 0.5 mg tablet take 2 tablets by mouth at bedtime baclofen (LIORESAL) 20 mg tablet take 1 tablet by mouth 2 to three times a day for muscle spasm colchicine 0.6 mg tablet take 1 tablet by mouth twice a day ibuprofen (MOTRIN) 800 mg tablet take 1 tablet by mouth every 8 hours with food if needed for pain SYMBICORT 160-4.5 mcg/actuation inhaler Inhale 2 Puffs as instructed twice daily. tiotropium (SPIRIVA WITH HANDIHALER) 18 mcg inhalation capsule Inhale 1 capsule as instructed once daily. USE WITH HANDIHALER. EPINEPHrine (EPIPEN) 0.3 mg/0.3 mL auto-injector Inject 0.3 mL intramuscularly as needed. albuterol HFA (PROAIR HFA) 90 mcg/actuation inhaler Inhale 2 Puffs as instructed every 6 hours as needed. oxybutynin ER (DITROPAN XL) 10 mg 24 hr tablet take 1 tablet by mouth once daily ---TO REPLACE DETROL atorvastatin (LIPITOR) 10 mg tablet take 1 tablet by mouth daily at bedtime amLODIPine (NORVASC) 5 mg tablet take 1 tablet by mouth once daily benazepril (LOTENSIN) 20 mg tablet Take 1 tablet by mouth once daily. omeprazole (PRILOSEC) 20 mg capsule take 1 capsule by mouth every morning 1/2 HOUR BEFORE BREAKFAST rOPINIRole (REQUIP) 0.5 mg tablet take 2 tablets by mouth at bedtime aspirin, enteric coated (ADULT LOW DOSE ASPIRIN) 81 mg EC tablet Take 1 tablet by mouth once daily. No current facility-administered medications on file prior to visit. Social History Social History Marital status: Spouse name: Years of education: Number of children: Occupational History Occupation Employer Comment [employer], last done 2011 Social History Main Topics Smoking status: Current Every Day Smoker Packs/day: 2.00 Years: 37.00 Start date: 1976 Smokeless tobacco: Never Used Alcohol use: No Comment: None since 2011, TO 02/2016. Drug use: No Social History Narrative Tried Chantix and Nicotine patch. First morning cigarette right after going to the bathroom. Hardest cigarette to give up- morning cigarette. Once get coffee in the morning, it is one after another. Quit during hospitalization with delivery of baby for 1 week. Smoked during . Review of Symptoms REVIEW OF SYSTEMS See hpi EXAM: BP 108/78 (BP Site: Left Arm, BP Position: Sitting, BP Cuff Size: Regular Adult) Pulse 84 Temp 36.5 ?C (97.7 ?F) (Tympanic) Resp 14 Wt 73.5 kg (162 lb) BMI 27.81 kg/m? General Appearance: Well appearing, alert, in no acute distress, well-hydrated, well nourished.. Skin: Wound more blackened in center with worse tendernss compared to 2 days ago. Redness about the same. Health Maintenance List BP CONTROLLED (<130/80) due on 12/09/1979 [facility] MED PRESCRIBED due on 04/28/2018 FECAL OCCULT BLOOD due on 2018 MAMMOGRAM due on 12/30/2018 ANNUAL PCP TEAM CHRONIC DISEASE VISIT due on 03/25/2019 PAP EVERY 5 YEARS due on 09/24/2020 HPV EVERY 5 YEARS due on 09/24/2020 DIABETES SCREEN due on 03/25/2021 LIPID SCREEN due on 09/16/2022 DTAP,TDAP,TD(2 - Td) due on 06/04/2026 ONE PNEUMOVAX PRIOR TO AGE 65 Completed INFLUENZA Completed HEPATITIS C SCREENING Completed Data reviewed n/a ASSESSMENT/PLAN: 1. Cellulitis of skin - ICD9: 682.9, ICD10: L03.90 (primary diagnosis) - Continue treatment with Cephalaxin (Keflex) - Add bactrim DS - Since wound is getting darker and more painful will consult to wound clinic at [facility] - CONSULT TO WOUND HEALING CENTER ([facility]) 2. Open wound of right lower leg, subsequent encounter - ICD9: V58.89, 891.0, ICD10: S81.801D See above - CONSULT TO WOUND HEALING CENTER ([facility]) JACOB LANDEROS PA-C CNOV Observed: 03/28/2018 Status: COMPLETED Source: [place] 11:00 AM [facility] REPOSITORY Office Visit (FAMPWS) CRUZ JACOBO ([id number]) 1960 F Date Time Provider Department 03/28/18 11:00 AM ARGENIS LANDEROS) FAMPWS During your visit today, we recorded the following information about you: Temperature Pulse Respiration Blood pressure 97.7 degrees 84/minute 14/minute 108/78 Weight 73.5 kg JACOB LANDEROS PA-C 03/28/2018 12:50 PM Signed Chief Complaint Patient presents with: Recheck HPI Cruz Jacobo is a 57 year old female who presents here today for Recheck. Wound without improvement but doesn't look worse. Pain has worsened. Has been taking keflex Last Tdap may 2016 Past medical history, appointments, medications, allergies reviewed. Previous Medical History PAST MEDICAL HISTORY Diagnosis Date - YEN positive 12/06/2017 Seeing Rheum - Cancer ([facility]) - CHF (congestive heart failure) ([facility]) 12/06/2017 - COPD (chronic obstructive pulmonary disease) ([facility]) - Fibromyalgia 03/09/2014 - HTN (hypertension) - Hyperlipidemia 01/30/2014 - Insomnia 09/20/2013 - Lipoma of buttock 01/25/2014 Left glut - Low back pain 05/09/2013 - Lumbar canal stenosis 12/06/2017 Moderate at L2-L3 - Lumbar facet arthropathy 12/06/2017 - Lumbar foraminal stenosis 12/06/2017 - 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 Ruiz, on colchicine - Routine gynecological examination Dr. Arreola - Seasonal allergies - Smoker 01/25/2014 - Substance abuse ([facility]) - Urge incontinence 06/22/2013 - Vitamin D deficiency 01/25/2014 Previous Surgical History PAST SURGICAL HISTORY Procedure Laterality Date - FECAL OCCULT BLOOD TEST 12/09/2017 negative - STRESS TEST 08/28/2014 NL - HERLINDA W/WO REMOVAL TUBE OVARY HERLINDA-BSO - TONSILLECTOMY HX - [facility] DELIVERY SCHEDULING ORDER 2002 Family History FAMILY HISTORY Problem Relation Age of Onset - Coronary Artery Disease Mother - Diabetes Mother - Headache Mother - Hypertension Mother - COPD Mother Multiple mebers of maternal family. - Diabetes Brother - Stroke Father - Breast Cancer Sister - Cancer Sister Lung. Uncle. Patient Allergies ALLERGIES Allergen Reactions - Bee Sting Swelling, Shortness of Breath - Aleve [Naproxen] Hives Current Medications Current Outpatient Prescriptions on File Prior to Visit: cephALEXin (KEFLEX) 500 mg capsule Take 1 capsule by mouth four times daily for 10 days. mupirocin (BACTROBAN) 2 % cream Apply 1 application to affected area three times daily for 10 days. buPROPion HCl, smoking deter, 150 mg Tb12 take 1 tablet by mouth once daily for 2 weeks then take 1 tablet twice a day gabapentin (NEURONTIN) 400 mg capsule take 3 capsules by mouth at bedtime omeprazole (PRILOSEC) 20 mg capsule take 1 tablet by mouth daily 1/2 HOUR BEFORE BREAKFAST rOPINIRole (REQUIP) 0.5 mg tablet take 2 tablets by mouth at bedtime baclofen (LIORESAL) 20 mg tablet take 1 tablet by mouth 2 to three times a day for muscle spasm colchicine 0.6 mg tablet take 1 tablet by mouth twice a day ibuprofen (MOTRIN) 800 mg tablet take 1 tablet by mouth every 8 hours with food if needed for pain SYMBICORT 160-4.5 mcg/actuation inhaler Inhale 2 Puffs as instructed twice daily. tiotropium (SPIRIVA WITH HANDIHALER) 18 mcg inhalation capsule Inhale 1 capsule as instructed once daily. USE WITH HANDIHALER. EPINEPHrine (EPIPEN) 0.3 mg/0.3 mL auto-injector Inject 0.3 mL intramuscularly as needed. albuterol HFA (PROAIR HFA) 90 mcg/actuation inhaler Inhale 2 Puffs as instructed every 6 hours as needed. oxybutynin ER (DITROPAN XL) 10 mg 24 hr tablet take 1 tablet by mouth once daily ---TO REPLACE DETROL atorvastatin (LIPITOR) 10 mg tablet take 1 tablet by mouth daily at bedtime amLODIPine (NORVASC) 5 mg tablet take 1 tablet by mouth once daily benazepril (LOTENSIN) 20 mg tablet Take 1 tablet by mouth once daily. omeprazole (PRILOSEC) 20 mg capsule take 1 capsule by mouth every morning 1/2 HOUR BEFORE BREAKFAST rOPINIRole (REQUIP) 0.5 mg tablet take 2 tablets by mouth at bedtime aspirin, enteric coated (ADULT LOW DOSE ASPIRIN) 81 mg EC tablet Take 1 tablet by mouth once daily. No current facility-administered medications on file prior to visit. 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 Drug use: No Social History Narrative Tried Chantix and Nicotine patch. First morning cigarette right after going to the bathroom. Hardest cigarette to give up- morning cigarette. Once get coffee in the morning, it is one after another. Quit during hospitalization with delivery of baby for 1 week. Smoked during . Review of Symptoms REVIEW OF SYSTEMS See hpi EXAM: BP 108/78 (BP Site: Left Arm, BP Position: Sitting, BP Cuff Size: Regular Adult) Pulse 84 Temp 36.5 ?C (97.7 ?F) (Tympanic) Resp 14 Wt 73.5 kg (162 lb) BMI 27.81 kg/m? General Appearance: Well appearing, alert, in no acute distress, well-hydrated, well nourished.. Skin: Wound more blackened in center with worse tendernss compared to 2 days ago. Redness about the same. Health Maintenance List BP CONTROLLED (<130/80) due on 12/09/1979 [facility] MED PRESCRIBED due on 04/28/2018 FECAL OCCULT BLOOD due on 2018 MAMMOGRAM due on 12/30/2018 ANNUAL PCP TEAM CHRONIC DISEASE VISIT due on 03/25/2019 PAP EVERY 5 YEARS due on 09/24/2020 HPV EVERY 5 YEARS due on 09/24/2020 DIABETES SCREEN due on 03/25/2021 LIPID SCREEN due on 09/16/2022 DTAP,TDAP,TD(2 - Td) due on 06/04/2026 ONE PNEUMOVAX PRIOR TO AGE 65 Completed INFLUENZA Completed HEPATITIS C SCREENING Completed Data reviewed n/a ASSESSMENT/PLAN: 1. Cellulitis of skin - ICD9: 682.9, ICD10: L03.90 (primary diagnosis) - Continue treatment with Cephalaxin (Keflex) - Add bactrim DS - Since wound is getting darker and more painful will consult to wound clinic at [facility] - CONSULT TO WOUND HEALING CENTER ([facility]) 2. Open wound of right lower leg, subsequent encounter - ICD9: V58.89, 891.0, ICD10: S81.801D See above - CONSULT TO WOUND HEALING CENTER ([facility]) JACOB LANDEROS PA-C Referring Provider: JACOB LANDEROS(LISA) [[id number]] Allergies As of Date: 03/28/2018 Noted Allergy Reaction BEE STING 05/09/2013 7 - Swelling 12 - Shortness of Breath ALEVE (NAPROXEN) 05/09/2013 4 - Hives Date Reviewed: 03/28/2018 Reviewed by: Jaylyn Laureano Ma - Fully Assessed Reason for Visit: Recheck [92] Primary Visit Diagnosis:Cellulitis of skin [L03.90] Other Visit Diagnosis:Open wound of right lower leg, subsequent encounter [S81.801D] Order(s):sulfamethoxazole-trimethoprim (BACTRIM DS,SEPTRA DS) 800-160 mg per tabletTake 1 tablet by mouth twice daily for 10 days.Disp: 20 tabletRfl: 0 CONSULT TO WOUND HEALING CENTER ([facility]) [[id number]] Order #: [id number]: 1 Prescriptions as of 03/28/2018 Sig: CEPHALEXIN 500 MG CAPSULE Take 1 capsule by mouth four * MUPIROCIN 2 % TOPICAL CREAM Apply 1 application to affect* BUPROPION HCL 150 MG TABLET,1* take 1 tablet by mouth once d* GABAPENTIN 400 MG CAPSULE take 3 capsules by mouth at b* OMEPRAZOLE 20 MG CAPSULE,DIONE* take 1 tablet by mouth daily * ROPINIROLE 0.5 MG TABLET take 2 tablets by mouth at be* BACLOFEN 20 MG TABLET take 1 tablet by mouth 2 to t* COLCHICINE 0.6 MG TABLET take 1 tablet by mouth twice * IBUPROFEN 800 MG TABLET take 1 tablet by mouth every * SYMBICORT 160 MCG-4.5 MCG/ACT* Inhale 2 Puffs as instructed * TIOTROPIUM BROMIDE 18 MCG CAP* Inhale 1 capsule as instructe* EPINEPHRINE 0.3 MG/0.3 ML INJ* Inject 0.3 mL intramuscularly* ALBUTEROL SULFATE HFA 90 MCG/* Inhale 2 Puffs as instructed * OXYBUTYNIN CHLORIDE ER 10 MG * take 1 tablet by mouth once d* ATORVASTATIN 10 MG TABLET take 1 tablet by mouth daily * AMLODIPINE 5 MG TABLET take 1 tablet by mouth once d* BENAZEPRIL 20 MG TABLET Take 1 tablet by mouth once d* SULFAMETHOXAZOLE 800 MG-TRIME* Take 1 tablet by mouth twice * OMEPRAZOLE 20 MG CAPSULE,DIONE* take 1 capsule by mouth every* ROPINIROLE 0.5 MG TABLET take 2 tablets by mouth at be* ASPIRIN 81 MG TABLET,DELAYED * Take 1 tablet by mouth once d* Problem List As Of Date 03/28/2018 Noted Resolved Seasonal allergies [J30.2] Priority: B Routine gynecological examination [Z01.419] Priority: E More... Urge incontinence [N39.41] INVALID FOR* Priority: B Insomnia [G47.00] INVALID FOR* Priority: B Vitamin D deficiency [E55.9] INVALID FOR* Priority: A Smoker [F17.200] INVALID FOR* Priority: C More... Lipoma of buttock [D17.1] INVALID FOR* Priority: C More... More... Fibromyalgia [M79.7] INVALID FOR* Priority: B Essential hypertension [I10] INVALID FOR* Priority: A Chronic obstructive pulmonary disease (HCC) [J4*INVALID FOR* Priority: A More... Mixed hyperlipidemia [E78.2] INVALID FOR* Priority: A Gastroesophageal reflux disease without esophag*INVALID FOR* Priority: A Low back pain [M54.5] INVALID FOR* Priority: M More... Arthritis of both knees [M17.0] INVALID FOR* Priority: M More... Pericardial effusion [I31.3] INVALID FOR* Priority: A More... Carpal tunnel syndrome of left wrist [G56.02] INVALID FOR* Priority: M More... Obesity (BMI 35.0-39.9 without comorbidity) [E6*INVALID FOR*01/12/2017 Obesity (BMI 30.0-34.9) [E66.9] INVALID FOR* Priority: B More... Current use of proton pump inhibitor [Z79.899] INVALID FOR* More... Lumbar canal stenosis [M48.061] INVALID FOR* Priority: M More... Lumbar foraminal stenosis [M99.83] INVALID FOR* Priority: M Lumbar facet arthropathy (HCC) [M47.816] INVALID FOR* Priority: M CHF (congestive heart failure) (HCC) [I50.9] INVALID FOR* Priority: A More... YEN positive [R76.8] INVALID FOR* Priority: B More... Medicare annual wellness visit, subsequent [Z00*INVALID FOR* Priority: E More... Well adult exam [Z00.00] INVALID FOR* Priority: E More... Screening for colon cancer [Z12.11] INVALID FOR* Encounter for screening mammogram for breast ca*INVALID FOR* Elevated hemoglobin (HCC) [D58.2] INVALID FOR* Secondary polycythemia [D75.1] INVALID FOR* Priority: B More... Prescriptions ordered this encounter Disp Refills Start End SULFAMETHOXAZOLE 800 MG-TRIMETHOPRIM* 20 t* 0 03/28/2018 04/07/2018 Route: ORAL Sig: Take 1 tablet by mouth twice daily for 10 days. Encounter Status:Closed by JACOB MACDONALD on 03/28/18 CBC AND DIFFERENTIAL Collected: 03/25/2018 Status: F Source: [place] 11:58 AM [facility] REPOSITORY TYPE CODE TESTS RESULT OUT OF REFERENCE UNITS RANGE LAB WBC 3.70-11.00 k/uL WBC 5.54 LAB RBC 3.90-5.20 m/uL RBC High 5.58 LAB HGB 11.5-15.5 g/dL High Hemoglobin 17.4 LAB HCT 36.0-46.0 % High Hematocrit 54.7 LAB MCV 80.0-100.0 fL MCV 98.0 LAB MCH 26.0-34.0 pG MCH 31.2 LAB MCHC 30.5-36.0 g/dL MCHC 31.8 LAB RDWCV 11.5-15.0 % RDW-CV 14.2 LAB PLTCT 150-400 k/uL Platelet Count 156 LAB MPV 9.0-12.7 fL MPV 12.3 LAB ANEUT % Neut% 69.0 LAB AANEUT 1.45-7.50 k/uL Abs Neut 3.80 LAB ALYMP % Lymph% 21.1 LAB AALYMP 1.00-4.00 k/uL Abs Lymph 1.17 LAB AMONO % [place]% 8.1 LAB AAMONO <0.87 k/uL Abs [place] 0.45 LAB AEOS % Eosin% 1.3 LAB AAEOS <0.46 k/uL Abs Eosin 0.07 LAB ABASO % Baso% 0.5 LAB AABASO <0.11 k/uL Abs Baso 0.03 LAB AUNRBC 0 /100 WBC NRBCs 0.0 LAB ABNRBC <0.01 k/uL Absolute nRBC <0.01 LAB DTYP DTYPE Auto Diff Performed By: #### CBCDIF, BMP #### [facility] [address] [address] BASIC METABOLIC PANL Collected: 03/25/2018 Status: F Source: [place] 11:58 AM [facility] REPOSITORY TYPE CODE TESTS RESULT OUT OF REFERENCE UNITS RANGE LAB GLU 74-99 mg/dL Glucose 81 Result Comment: The [place] Diabetes Association (ADA) provides guidance for cutoff values for fasting glucose and random glucose. The ADA defines fasting as no caloric intake for at least 8 hours. Fas ting plasma glucose results between 100 to 125 mg/dL indicate increased risk for diabetes (prediabetes). Fasting plasma glucose results greater than or equal to 126 mg/dL meet the criteria for diagnosis of diabetes. In the absence of unequivocal hyperglycemia, results should be confirmed by repeat testing. In a patient with classic symptoms of hyperglycemia or hyperglycemic crisis, random plasma glucose results greater than or equal to 200 mg/dL meet the criteria for diagnosis of diabetes. Reference: Standards of Medical Care in Diabetes 2016, [place] Diabetes Association. Diabetes Care. 2016.39(Suppl 1). LAB BUN 7-21 mg/dL BUN 9 LAB CRET 0.58-0.96 mg/dL Creatinine 0.79 LAB NA 136-144 mmol/L Sodium 141 LAB K 3.7-5.1 mmol/L Potassium 3.9 LAB CL 97-105 mmol/L Chloride 101 LAB CO2 22-30 mmol/L CO2 23 LAB AGAP 9-18 mmol/L Anion Gap 17 LAB CA 8.5-10.2 mg/dL Calcium, Total 9.6 LAB GFRAA eGFR- Amer. >60 LAB GFRNAA . eGFR-All Other Races >60 Result Comment: eGFR (Estimated GFR) Units of measure: mL/min/1.73 meters squared eGFR is derived from the reexpressed MDRD Study equation using the following parameters: serum creatinine, age, gender and race. The creatinine assay has been calibrated to be traceable to IDMS. An eGFR <60 mL/min/1.73m2 for >3 months is consistent with chronic kidney disease. Refer to KDOQI guidelines for clinical interpretation. In patients with unstable renal function, e.g. those with acute kidney injury, the eGFR may not accurately reflect actual GFR. Performed By: #### CBCDIF, BMP #### [facility] [address] [place], [place] [address] CBC AND DIFFERENTIAL Collected: 03/25/2018 Status: F Source: [place] 11:58 AM [facility] REPOSITORY TYPE CODE TESTS RESULT OUT OF REFERENCE UNITS RANGE LAB WBC 3.70-11.00 k/uL WBC 5.53 LAB RBC 3.90-5.20 m/uL RBC High 5.49 LAB HGB 11.5-15.5 g/dL High Hemoglobin 17.4 LAB HCT 36.0-46.0 % High Hematocrit 55.2 LAB MCV 80.0-100.0 fL MCV High 100.5 LAB MCH 26.0-34.0 pG MCH 31.7 LAB MCHC 30.5-36.0 g/dL MCHC 31.5 LAB RDWCV 11.5-15.0 % RDW-CV 14.2 LAB PLTCT 150-400 k/uL Platelet Count 154 LAB MPV 9.0-12.7 fL MPV 11.8 LAB ANEUT % Neut% 68.3 LAB AANEUT 1.45-7.50 k/uL Abs Neut 3.76 LAB ALYMP % Lymph% 21.3 LAB AALYMP 1.00-4.00 k/uL Abs Lymph 1.18 LAB AMONO % [place]% 8.3 LAB AAMONO <0.87 k/uL Abs [place] 0.46 LAB AEOS % Eosin% 1.4 LAB AAEOS <0.46 k/uL Abs Eosin 0.08 LAB ABASO % Baso% 0.7 LAB AABASO <0.11 k/uL Abs Baso 0.04 LAB AUNRBC 0 /100 WBC NRBCs 0.0 LAB ABNRBC <0.01 k/uL Absolute nRBC <0.01 LAB DTYP DTYPE Auto Diff Performed By: #### CBCDIF, WSR, BNP, T3, T4, CMP, HSCRP, FLORIAN, TSH #### [facility] [address] [id number] SED RATE WESTERGREN Collected: 03/25/2018 Status: F Source: [place] 11:58 AM [facility] REPOSITORY TYPE CODE TESTS RESULT OUT OF REFERENCE UNITS RANGE LAB WSR 0-20 mm/hr Sed Rate Westergren 8 Performed By: #### CBCDIF, WSR, BNP, T3, T4, CMP, HSCRP, FLORIAN, TSH #### [facility] [address] [place], [place] [address] B NATRIURETIC PEPTID Collected: 03/25/2018 Status: F Source: [place] 11:58 AM [facility] REPOSITORY TYPE CODE TESTS RESULT OUT OF REFERENCE UNITS RANGE LAB BNPEP 0-99 pg/mL B Natriuretic 16 Peptid Performed By: #### CBCDIF, WSR, BNP, T3, T4, CMP, HSCRP, FLORIAN, TSH #### [facility] [address] [address] T3 Collected: 03/25/2018 Status: F Source: [facility] 11:58 AM [facility] REPOSITORY TYPE CODE TESTS RESULT OUT OF RANGE REFERENCE UNITS LAB T3 79-165 ng/dL T3 124 Performed By: #### CBCDIF, WSR, BNP, T3, T4, CMP, HSCRP, FLORIAN, TSH #### [facility] [address] [address] T4 Collected: 03/25/2018 Status: F Source: [facility] 11:58 AM [facility] REPOSITORY TYPE CODE TESTS RESULT OUT OF RANGE REFERENCE UNITS LAB T4 5.5-10.2 ug/dL T4 10.1 Performed By: #### CBCDIF, WSR, BNP, T3, T4, CMP, HSCRP, FLORIAN, TSH #### [place] [address] COMP METABOLIC PANEL Collected: 03/25/2018 Status: F Source: [place] 11:58 AM [facility] REPOSITORY TYPE CODE TESTS RESULT OUT OF REFERENCE UNITS RANGE LAB TP 6.3-8.0 g/dL Protein, Total 7.3 LAB ALB 3.9-4.9 g/dL Albumin 4.1 LAB CA 8.5-10.2 mg/dL Calcium, Total 9.6 LAB TBIL 0.2-1.3 mg/dL Bilirubin, Total 0.4 LAB ALKP 34-123 U/L Alkaline Phosphatase 75 LAB AST 13-35 U/L AST 21 LAB GLU 74-99 mg/dL Glucose 82 Result Comment: The [place] Diabetes Association (ADA) provides guidance for cutoff values for fasting glucose and random glucose. The ADA defines fasting as no caloric intake for at least 8 hours. Fas ting plasma glucose results between 100 to 125 mg/dL indicate increased risk for diabetes (prediabetes). Fasting plasma glucose results greater than or equal to 126 mg/dL meet the criteria for diagnosis of diabetes. In the absence of unequivocal hyperglycemia, results should be confirmed by repeat testing. In a patient with classic symptoms of hyperglycemia or hyperglycemic crisis, random plasma glucose results greater than or equal to 200 mg/dL meet the criteria for diagnosis of diabetes. Reference: Standards of Medical Care in Diabetes 2016, [place] [employer] Association. Diabetes Care. 2016.39(Suppl 1). LAB BUN 7-21 mg/dL BUN 10 LAB CRET 0.58-0.96 mg/dL Creatinine 0.81 LAB NA 136-144 mmol/L Sodium 141 LAB K 3.7-5.1 mmol/L Potassium 4.0 LAB CL 97-105 mmol/L Chloride 101 LAB CO2 22-30 mmol/L CO2 23 LAB AGAP 9-18 mmol/L Anion Gap 17 LAB ALT 7-38 U/L ALT 17 LAB GFRAA eGFR- Amer. >60 LAB GFRNAA . eGFR-All Other Races >60 Result Comment: eGFR (Estimated GFR) Units of measure: mL/min/1.73 meters squared eGFR is derived from the reexpressed MDRD Study equation using the following parameters: serum creatinine, age, gender and race. The creatinine assay has been calibrated to be traceable to IDMS. An eGFR <60 mL/min/1.73m2 for >3 months is consistent with chronic kidney disease. Refer to KDOQI guidelines for clinical interpretation. In patients with unstable renal function, e.g. those with acute kidney injury, the eGFR may not accurately reflect actual GFR. Performed By: #### CBCDIF, WSR, BNP, T3, T4, CMP, HSCRP, FLORIAN, TSH #### [facility] [address] [place], [place] [address] ULTRA-SENSITIVE CRP Collected: 03/25/2018 Status: F Source: [place] 11:58 AM [facility] REPOSITORY TYPE CODE TESTS RESULT OUT OF REFERENCE UNITS RANGE LAB CRPUS <3.1 mg/L High UltraSens 7.8 C-ReacProt Result Comment: (NOTE) hsCRP < 1.0 mg/L, relative risk is low hsCRP 1.0-3.0 mg/L, relative risk is average hsCRP > 3.0 mg/L, relative risk is high Reference: Sadia TA, Javier GA, Prashanth RW, et al. Markers of Inflammation and Cardiovascular Disease. Application to Clinical and Public Health Practice. A Statement for Healthcare Professionals From the Centers for Disease Control and Prevention and the [place] [employer]. Circulation 2003;107:499-511. Performed By: #### CBCDIF, WSR, BNP, T3, T4, CMP, HSCRP, FLORIAN, TSH #### [facility] [address] [place], [place] [address] TROPONIN T Collected: 03/25/2018 Status: F Source: [place] 11:58 AM [facility] REPOSITORY TYPE CODE TESTS RESULT OUT OF REFERENCE UNITS RANGE LAB TROPT 0.000-0.029 ng/mL Troponin T <0.010 Performed By: #### CBCDIF, WSR, BNP, T3, T4, CMP, HSCRP, FLORIAN, TSH #### [facility] [address] [place], [place] [address] TSH Collected: 03/25/2018 Status: F Source: [place] 11:58 AM [facility] REPOSITORY TYPE CODE TESTS RESULT OUT OF RANGE REFERENCE UNITS LAB TSH 0.400-5.500 uU/mL TSH 1.100 Performed By: #### CBCDIF, WSR, BNP, T3, T4, CMP, HSCRP, FLORIAN, TSH #### [facility] [place], [place] [address] PROGRESS Observed: 03/25/2018 Status: COMPLETED Source: [place] 11:04 AM [facility] REPOSITORY O ID: [id number] Author: Krunal Landeros Service: (none) Author Type: Physician Director Learning And Development Type: Progress Notes Filed: 03/25/2018 11:48 AM Note Text: Chief Complaint Patient presents with: Leg potentially infected HPI Cruz Jacobo is a 57 year old female who presents here today for Above Complaints.. Last Monica jurado was hit by her car door as she was shutting it. States that she covered it with kleenex and when she got home she put antibiotic ointment on it but did not clean. Has been keeping it covered and continued the antibiotic ointment. States over the past 24-48 hours starting to look more red and painful. No pus 20pound weight loss in 6 months Not trying. Normal Chest CT in August. But this is about the time the weight loss started. Last 12 Encounter Wt Readings: Date: Wt: 03/25/2018 73 kg (161 lb) 03/22/2018 73.5 kg (162 lb) 03/22/2018 73.5 kg (162 lb) 03/04/2018 74.6 kg (164 lb 6.4 oz) 01/26/2018 73.5 kg (162 lb) 12/20/2017 77.3 kg (170 lb 8 oz) 12/09/2017 77.1 kg (170 lb) 12/09/2017 77.1 kg (170 lb) 12/06/2017 78 kg (172 lb) 09/01/2017 82.9 kg (182 lb 11.2 oz) 06/10/2017 85.3 kg (188 lb) 06/10/2017 85.3 kg (188 lb) Past medical history, appointments, medications, allergies reviewed. Previous Medical History PAST MEDICAL HISTORY Diagnosis Date - YEN positive 12/06/2017 Seeing Rheum - Cancer ([facility]LY [facility]) - CHF (congestive heart failure) ([facility]) 12/06/2017 - COPD (chronic obstructive pulmonary disease) ([facility]) - Fibromyalgia 03/09/2014 - HTN (hypertension) - Hyperlipidemia 01/30/2014 - Insomnia 09/20/2013 - Lipoma of buttock 01/25/2014 Left glut - Low back pain 05/09/2013 - Lumbar canal stenosis 12/06/2017 Moderate at L2-L3 - Lumbar facet arthropathy 12/06/2017 - Lumbar foraminal stenosis 12/06/2017 - 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 Riuz, on colchicine - Routine gynecological examination Dr. Arreola - Seasonal allergies - Smoker 01/25/2014 - Substance abuse ([facility]) - Urge incontinence 06/22/2013 - Vitamin D deficiency 01/25/2014 Previous Surgical History PAST SURGICAL HISTORY Procedure Laterality Date - FECAL OCCULT BLOOD TEST 12/09/2017 negative - STRESS TEST 08/28/2014 NL - HERLINDA W/WO REMOVAL TUBE OVARY HERLINDA-BSO - TONSILLECTOMY HX - [facility] DELIVERY SCHEDULING ORDER 2003 Family History FAMILY HISTORY Problem Relation Age of Onset - Coronary Artery Disease Mother - Diabetes Mother - Headache Mother - Hypertension Mother - COPD Mother Multiple mebers of maternal family. - Diabetes Brother - Stroke Father - Breast Cancer Sister - Cancer Sister Lung. Uncle. Patient Allergies ALLERGIES Allergen Reactions - Bee Sting Swelling, Shortness of Breath - Aleve [Naproxen] Hives Current Medications Current Outpatient Prescriptions on File Prior to Visit: buPROPion HCl, smoking deter, 150 mg Tb12 take 1 tablet by mouth once daily for 2 weeks then take 1 tablet twice a day gabapentin (NEURONTIN) 400 mg capsule take 3 capsules by mouth at bedtime omeprazole (PRILOSEC) 20 mg capsule take 1 tablet by mouth daily 1/2 HOUR BEFORE BREAKFAST rOPINIRole (REQUIP) 0.5 mg tablet take 2 tablets by mouth at bedtime baclofen (LIORESAL) 20 mg tablet take 1 tablet by mouth 2 to three times a day for muscle spasm colchicine 0.6 mg tablet take 1 tablet by mouth twice a day ibuprofen (MOTRIN) 800 mg tablet take 1 tablet by mouth every 8 hours with food if needed for pain SYMBICORT 160-4.5 mcg/actuation inhaler Inhale 2 Puffs as instructed twice daily. tiotropium (SPIRIVA WITH HANDIHALER) 18 mcg inhalation capsule Inhale 1 capsule as instructed once daily. USE WITH HANDIHALER. EPINEPHrine (EPIPEN) 0.3 mg/0.3 mL auto-injector Inject 0.3 mL intramuscularly as needed. albuterol HFA (PROAIR HFA) 90 mcg/actuation inhaler Inhale 2 Puffs as instructed every 6 hours as needed. omeprazole (PRILOSEC) 20 mg capsule take 1 capsule by mouth every morning 1/2 HOUR BEFORE BREAKFAST oxybutynin ER (DITROPAN XL) 10 mg 24 hr tablet take 1 tablet by mouth once daily ---TO REPLACE DETROL rOPINIRole (REQUIP) 0.5 mg tablet take 2 tablets by mouth at bedtime atorvastatin (LIPITOR) 10 mg tablet take 1 tablet by mouth daily at bedtime amLODIPine (NORVASC) 5 mg tablet take 1 tablet by mouth once daily benazepril (LOTENSIN) 20 mg tablet Take 1 tablet by mouth once daily. aspirin, enteric coated (ADULT LOW DOSE ASPIRIN) 81 mg EC tablet Take 1 tablet by mouth once daily. No current facility-administered medications on file prior to visit. 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 Drug use: No Social History Narrative Tried Chantix and Nicotine patch. First morning cigarette right after going to the bathroom. Hardest cigarette to give up- morning cigarette. Once get coffee in the morning, it is one after another. Quit during hospitalization with delivery of baby for 1 week. Smoked during . Review of Symptoms REVIEW OF SYSTEMS See HPI EXAM: BP 114/85 Pulse 88 Resp 18 Wt 73 kg (161 lb) BMI 27.64 kg/m? General Appearance: Well appearing, alert, in no acute distress, well-hydrated, well nourished.. Skin: 2inch curved laceration noted with poor wound healing. Skin flap adhered to wound but not well approximated. Surrounding area tender and erthematous. Redness extends to just superior of ankle. Area marked with marker. Health Maintenance List EDWARD/ARB MED PRESCRIBED due on 03/28/2018 ANNUAL PCP TEAM CHRONIC DISEASE VISIT due on 12/06/2018 FECAL OCCULT BLOOD due on 2018 MAMMOGRAM due on 12/30/2018 BP CONTROLLED (<130/80) due on 03/22/2019 PAP EVERY 5 YEARS due on 09/24/2020 HPV EVERY 5 YEARS due on 09/24/2020 DIABETES SCREEN due on 01/26/2021 LIPID SCREEN due on 09/16/2022 DTAP,TDAP,TD(2 - Td) due on 06/04/2026 ONE PNEUMOVAX PRIOR TO AGE 65 Completed INFLUENZA Completed HEPATITIS C SCREENING Completed ASSESSMENT/PLAN: 1. Cellulitis of skin - ICD9: 682.9, ICD10: L03.90 (primary diagnosis) - Begin treatment with Cephalaxin (Keflex) - Check labs CBC with Diff and CMP - CBC + DIFF - BASIC METABOLIC PNL 2. Smoker - ICD9: 305.1, ICD10: F17.200 - Cessation encouraged. - Physiologic and physical aspects of tobacco addiction as well as strategies for quitting were discussed. - Counseling was given focusing on the harmful effects of this addiction especially given the patient's medical condition(s) which will be worsened because of the chemicals in tobacco. - CT ABD/PEL W IVCON - CT CHEST W IVCON 3. Weight loss - ICD9: 783.21, ICD10: R63.[address] abd/pelv, chest - CBC + DIFF - BASIC METABOLIC PNL - CT ABD/PEL W IVCON - CT CHEST W IVCON 4. Pulmonary emphysema, unspecified emphysema type (HCC) - ICD9: 492.8, ICD10: J43.9 - CT ABD/PEL W IVCON - CT CHEST W IVCON Recheck wound in 3 days. Wound instructions given. JACOB LANDEROS PA-C CNOV Observed: 03/25/2018 Status: COMPLETED Source: [place] 11:00 AM [facility] REPOSITORY Office Visit (FAMPWS) CRUZ JACOBO ([id number]) 1960 F Date Time Provider Department 03/25/18 11:00 AM ARGENIS LANDEROS) FAMPWS During your visit today, we recorded the following information about you: Pulse Respiration Blood pressure Weight 88/minute 18/minute 114/85 73 kg JACOB LANDEROS PA-C 03/25/2018 11:48 AM Signed Chief Complaint Patient presents with: Leg potentially infected HPI Cruz Jacobo is a 57 year old female who presents here today for Above Complaints.. Last Monica jurado was hit by her car door as she was shutting it. States that she covered it with kleenex and when she got home she put antibiotic ointment on it but did not clean. Has been keeping it covered and continued the antibiotic ointment. States over the past 24-48 hours starting to look more red and painful. No pus 20pound weight loss in 6 months Not trying. Normal Chest CT in August. But this is about the time the weight loss started. Last 12 Encounter Wt Readings: Date: Wt: 03/25/2018 73 kg (161 lb) 03/22/2018 73.5 kg (162 lb) 03/22/2018 73.5 kg (162 lb) 03/04/2018 74.6 kg (164 lb 6.4 oz) 01/26/2018 73.5 kg (162 lb) 12/20/2017 77.3 kg (170 lb 8 oz) 12/09/2017 77.1 kg (170 lb) 12/09/2017 77.1 kg (170 lb) 12/06/2017 78 kg (172 lb) 09/01/2017 82.9 kg (182 lb 11.2 oz) 06/10/2017 85.3 kg (188 lb) 06/10/2017 85.3 kg (188 lb) Past medical history, appointments, medications, allergies reviewed. Previous Medical History PAST MEDICAL HISTORY Diagnosis Date - YEN positive 12/06/2017 Seeing Rheum - Cancer ([facility]) - CHF (congestive heart failure) ([facility]) 12/06/2017 - COPD (chronic obstructive pulmonary disease) ([facility]) - Fibromyalgia 03/09/2014 - HTN (hypertension) - Hyperlipidemia 01/30/2014 - Insomnia 09/20/2013 - Lipoma of buttock 01/25/2014 Left glut - Low back pain 05/09/2013 - Lumbar canal stenosis 12/06/2017 Moderate at L2-L3 - Lumbar facet arthropathy 12/06/2017 - Lumbar foraminal stenosis 12/06/2017 - 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 Ruiz, on colchicine - Routine gynecological examination Dr. Arreola - Seasonal allergies - Smoker 01/25/2014 - Substance abuse ([facility]) - Urge incontinence 06/22/2013 - Vitamin D deficiency 01/25/2014 Previous Surgical History PAST SURGICAL HISTORY Procedure Laterality Date - FECAL OCCULT BLOOD TEST 12/09/2017 negative - STRESS TEST 08/28/2014 NL - HERLNIDA W/WO REMOVAL TUBE OVARY HERLINDA-BSO - TONSILLECTOMY HX - [facility] DELIVERY SCHEDULING ORDER 2002 Family History FAMILY HISTORY Problem Relation Age of Onset - Coronary Artery Disease Mother - Diabetes Mother - Headache Mother - Hypertension Mother - COPD Mother Multiple mebers of maternal family. - Diabetes Brother - Stroke Father - Breast Cancer Sister - Cancer Sister Lung. Uncle. Patient Allergies ALLERGIES Allergen Reactions - Bee Sting Swelling, Shortness of Breath - Aleve [Naproxen] Hives Current Medications Current Outpatient Prescriptions on File Prior to Visit: buPROPion HCl, smoking deter, 150 mg Tb12 take 1 tablet by mouth once daily for 2 weeks then take 1 tablet twice a day gabapentin (NEURONTIN) 400 mg capsule take 3 capsules by mouth at bedtime omeprazole (PRILOSEC) 20 mg capsule take 1 tablet by mouth daily 1/2 HOUR BEFORE BREAKFAST rOPINIRole (REQUIP) 0.5 mg tablet take 2 tablets by mouth at bedtime baclofen (LIORESAL) 20 mg tablet take 1 tablet by mouth 2 to three times a day for muscle spasm colchicine 0.6 mg tablet take 1 tablet by mouth twice a day ibuprofen (MOTRIN) 800 mg tablet take 1 tablet by mouth every 8 hours with food if needed for pain SYMBICORT 160-4.5 mcg/actuation inhaler Inhale 2 Puffs as instructed twice daily. tiotropium (SPIRIVA WITH HANDIHALER) 18 mcg inhalation capsule Inhale 1 capsule as instructed once daily. USE WITH HANDIHALER. EPINEPHrine (EPIPEN) 0.3 mg/0.3 mL auto-injector Inject 0.3 mL intramuscularly as needed. albuterol HFA (PROAIR HFA) 90 mcg/actuation inhaler Inhale 2 Puffs as instructed every 6 hours as needed. omeprazole (PRILOSEC) 20 mg capsule take 1 capsule by mouth every morning 1/2 HOUR BEFORE BREAKFAST oxybutynin ER (DITROPAN XL) 10 mg 24 hr tablet take 1 tablet by mouth once daily ---TO REPLACE DETROL rOPINIRole (REQUIP) 0.5 mg tablet take 2 tablets by mouth at bedtime atorvastatin (LIPITOR) 10 mg tablet take 1 tablet by mouth daily at bedtime amLODIPine (NORVASC) 5 mg tablet take 1 tablet by mouth once daily benazepril (LOTENSIN) 20 mg tablet Take 1 tablet by mouth once daily. aspirin, enteric coated (ADULT LOW DOSE ASPIRIN) 81 mg EC tablet Take 1 tablet by mouth once daily. No current facility-administered medications on file prior to visit. 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 Drug use: No Social History Narrative Tried Chantix and Nicotine patch. First morning cigarette right after going to the bathroom. Hardest cigarette to give up- morning cigarette. Once get coffee in the morning, it is one after another. Quit during hospitalization with delivery of baby for 1 week. Smoked during . Review of Symptoms REVIEW OF SYSTEMS See HPI EXAM: BP 114/85 Pulse 88 Resp 18 Wt 73 kg (161 lb) BMI 27.64 kg/m? General Appearance: Well appearing, alert, in no acute distress, well-hydrated, well nourished.. Skin: 2inch curved laceration noted with poor wound healing. Skin flap adhered to wound but not well approximated. Surrounding area tender and erthematous. Redness extends to just superior of ankle. Area marked with marker. Health Maintenance List EDWARD/ARB MED PRESCRIBED due on 03/28/2018 ANNUAL PCP TEAM CHRONIC DISEASE VISIT due on 12/06/2018 FECAL OCCULT BLOOD due on 2018 MAMMOGRAM due on 12/30/2018 BP CONTROLLED (<130/80) due on 03/22/2019 PAP EVERY 5 YEARS due on 09/24/2020 HPV EVERY 5 YEARS due on 09/24/2020 DIABETES SCREEN due on 01/26/2021 LIPID SCREEN due on 09/16/2022 DTAP,TDAP,TD(2 - Td) due on 06/04/2026 ONE PNEUMOVAX PRIOR TO AGE 65 Completed INFLUENZA Completed HEPATITIS C SCREENING Completed ASSESSMENT/PLAN: 1. Cellulitis of skin - ICD9: 682.9, ICD10: L03.90 (primary diagnosis) - Begin treatment with Cephalaxin (Keflex) - Check labs CBC with Diff and CMP - CBC + DIFF - BASIC METABOLIC PNL 2. Smoker - ICD9: 305.1, ICD10: F17.200 - Cessation encouraged. - Physiologic and physical aspects of tobacco addiction as well as strategies for quitting were discussed. - Counseling was given focusing on the harmful effects of this addiction especially given the patient's medical condition(s) which will be worsened because of the chemicals in tobacco. - CT ABD/PEL W IVCON - CT CHEST W IVCON 3. Weight loss - ICD9: 783.21, ICD10: R63.[address] abd/pelv, chest - CBC + DIFF - BASIC METABOLIC PNL - CT ABD/PEL W IVCON - CT CHEST W IVCON 4. Pulmonary emphysema, unspecified emphysema type (HCC) - ICD9: 492.8, ICD10: J43.9 - CT ABD/PEL W IVCON - CT CHEST W IVCON Recheck wound in 3 days. Wound instructions given. LISA VELIZ PA-C 03/25/2018 11:34 AM Signed Labs today. Start antibiotic Return on Wednesday for Recheck Go to ER if worsening over weekend. Referring Provider: SELF [[id number]] Allergies As of Date: 03/25/2018 Noted Allergy Reaction BEE STING 05/09/2013 7 - Swelling 12 - Shortness of Breath ALEVE (NAPROXEN) 05/09/2013 4 - Hives Date Reviewed: 03/25/2018 Reviewed by: Taylor ([facility]) MONTSE Oates - Fully Assessed Reason for Visit: Leg potentially infected [Other] Primary Visit Diagnosis:Cellulitis of skin [L03.90] Other Visit Diagnoses:Smoker [F17.200] Weight loss [R63.4] Pulmonary emphysema, unspecified emphysema type (HCC) [J43.9] Order(s):cephALEXin (KEFLEX) 500 mg capsuleTake 1 capsule by mouth four times daily for 10 days.Disp: 40 capsuleRfl: 0 mupirocin (BACTROBAN) 2 % creamApply 1 application to affected area three times daily for 10 days.Disp: 30 gRfl: 0 CBC + DIFF [SQCBCDIF] Order #: [id number] FUTURE BASIC METABOLIC PNL [SQBMP] Order #: [id number] FUTURE CT ABD/PEL W IVCON [[id number]] Order #: [id number] FUTURE CT CHEST W IVCON [[id number]] Order #: [id number] FUTURE iv contrast (will be provided with radiology test)CT Chest ABD/PEL-Inject, intravenously, once for 1 dose.No IV access, insert saline lock prior to the beginning of sedation, infusion, injection of imaging exam. Discontinue saline lock post exam. If Pt. has a central line or IVAD, may access for administration according to line specific nursing protocol. Once exam is complete flush line and de-access according to line specific nursing protocol in the CT contrast administration guidelines link.Disp: 1 EachRfl: 0 enteric contrast (will be provided with radiology test)For CT CHESTABD/PEL W IVCON Routine order Administer, As Directed One Time Only, via Oral, Rectal, both Oral and Rectal, Enteric Tube, Stoma or Indwelling Catheter, Enteric Contrast as designated per enteric contrast guidelinesDisp: 1 EachRfl: 0 Prescriptions as of 03/25/2018 Sig: BUPROPION HCL 150 MG TABLET,1* take 1 tablet by mouth once d* GABAPENTIN 400 MG CAPSULE take 3 capsules by mouth at b* OMEPRAZOLE 20 MG CAPSULE,DIONE* take 1 tablet by mouth daily * ROPINIROLE 0.5 MG TABLET take 2 tablets by mouth at be* BACLOFEN 20 MG TABLET take 1 tablet by mouth 2 to t* COLCHICINE 0.6 MG TABLET take 1 tablet by mouth twice * IBUPROFEN 800 MG TABLET take 1 tablet by mouth every * SYMBICORT 160 MCG-4.5 MCG/ACT* Inhale 2 Puffs as instructed * TIOTROPIUM BROMIDE 18 MCG CAP* Inhale 1 capsule as instructe* EPINEPHRINE 0.3 MG/0.3 ML INJ* Inject 0.3 mL intramuscularly* ALBUTEROL SULFATE HFA 90 MCG/* Inhale 2 Puffs as instructed * OMEPRAZOLE 20 MG CAPSULE,DIONE* take 1 capsule by mouth every* OXYBUTYNIN CHLORIDE ER 10 MG * take 1 tablet by mouth once d* ROPINIROLE 0.5 MG TABLET take 2 tablets by mouth at be* ATORVASTATIN 10 MG TABLET take 1 tablet by mouth daily * AMLODIPINE 5 MG TABLET take 1 tablet by mouth once d* BENAZEPRIL 20 MG TABLET Take 1 tablet by mouth once d* ASPIRIN 81 MG TABLET,DELAYED * Take 1 tablet by mouth once d* CEPHALEXIN 500 MG CAPSULE Take 1 capsule by mouth four * MUPIROCIN 2 % TOPICAL CREAM Apply 1 application to affect* IV CONTRAST (RADIOLOGY PROCED* CT Chest ABD/PEL-Inject, intr* ENTERIC CONTRAST (RADIOLOGY P* For CT CHESTABD/PEL W IVCON R* Problem List As Of Date 03/25/2018 Noted Resolved Seasonal allergies [J30.2] Priority: B Routine gynecological examination [Z01.419] Priority: E More... Urge incontinence [N39.41] INVALID FOR* Priority: B Insomnia [G47.00] INVALID FOR* Priority: B Vitamin D deficiency [E55.9] INVALID FOR* Priority: A Smoker [F17.200] INVALID FOR* Priority: C More... Lipoma of buttock [D17.1] INVALID FOR* Priority: C More... More... Fibromyalgia [M79.7] INVALID FOR* Priority: B Essential hypertension [I10] INVALID FOR* Priority: A Chronic obstructive pulmonary disease (HCC) [J4*INVALID FOR* Priority: A More... Mixed hyperlipidemia [E78.2] INVALID FOR* Priority: A Gastroesophageal reflux disease without esophag*INVALID FOR* Priority: A Low back pain [M54.5] INVALID FOR* Priority: M More... Arthritis of both knees [M17.0] INVALID FOR* Priority: M More... Pericardial effusion [I31.3] INVALID FOR* Priority: A More... Carpal tunnel syndrome of left wrist [G56.02] INVALID FOR* Priority: M More... Obesity (BMI 35.0-39.9 without comorbidity) [E6*INVALID FOR*01/12/2017 Obesity (BMI 30.0-34.9) [E66.9] INVALID FOR* Priority: B More... Current use of proton pump inhibitor [Z79.899] INVALID FOR* More... Lumbar canal stenosis [M48.061] INVALID FOR* Priority: M More... Lumbar foraminal stenosis [M99.83] INVALID FOR* Priority: M Lumbar facet arthropathy (HCC) [M47.816] INVALID FOR* Priority: M CHF (congestive heart failure) (HCC) [I50.9] INVALID FOR* Priority: A More... YEN positive [R76.8] INVALID FOR* Priority: B More... Medicare annual wellness visit, subsequent [Z00*INVALID FOR* Priority: E More... Well adult exam [Z00.00] INVALID FOR* Priority: E More... Screening for colon cancer [Z12.11] INVALID FOR* Encounter for screening mammogram for breast ca*INVALID FOR* Elevated hemoglobin (HCC) [D58.2] INVALID FOR* Secondary polycythemia [D75.1] INVALID FOR* Priority: B More... Other instructions from your clinician: Labs today. Start antibiotic Return on Wednesday for Recheck Go to ER if worsening over weekend. Prescriptions ordered this encounter Disp Refills Start End CEPHALEXIN 500 MG CAPSULE 40 c* 0 03/25/2018 04/04/2018 Route: ORAL Sig: Take 1 capsule by mouth four times daily for 10 days. MUPIROCIN 2 % TOPICAL CREAM 30 g 0 03/25/2018 04/04/2018 Route: TOPICAL Sig: Apply 1 application to affected area three times daily for 10 days. IV CONTRAST (RADIOLOGY PROCEDURE) 1 Ea* 0 03/25/2018 03/26/2018 Class: In Office Sig: CT Chest ABD/PEL-Inject, intravenously, once for 1 dose.No IV access, insert saline lock prior to the beginning of sedation, infusion, injection of imaging exam. Discontinue saline lock post exam. If Pt. has a central line or IVAD, may access for administration according to line specific nursing protocol. Once exam is complete flush line and de-access according to line specific nursing protocol in the CT contrast administration guidelines link. ENTERIC CONTRAST (RADIOLOGY PROCEDUR* 1 Ea* 0 03/25/2018 03/26/2018 Class: In Office Sig: For CT CHESTABD/PEL W IVCON Routine order Administer, As Directed One Time Only, via Oral, Rectal, both Oral and Rectal, Enteric Tube, Stoma or Indwelling Catheter, Enteric Contrast as designated per enteric contrast guidelines Disposition: Return in about 3 days (around 03/28/2018). Follow-up and Disposition History Recorded Encounter Status:Closed by JACOB MACDONALD on 03/25/18 PROGRESS Observed: 03/22/2018 Status: COMPLETED Source: [place] 2:35 PM [facility] REPOSITORY [facility] ID: [id number] Author: Stefani Avila LPN Service: (none) Author Type: (none) Type: Progress Notes Filed: 03/23/2018 9:09 AM Note Text: 57 year old female here for INACTIVATED INFLUENZA VACCINE. 3187-4125 Season Patient is identified by name and date of : Yes [] CONTRAINDICATIONS color enhanced section Age less than 6 months? No Allergy to eggs, chicken, chicken feathers, or chicken dander? No Allergy to thimerosal (a preservative) or formaldehyde, gelatin? No History of severe reaction to any vaccine component or a previous dose of influenza vaccination? No History of Guillain-[place] Syndrome within 6 weeks after a previous influenza vaccine? No Patient is not moderately or severely ill? No Current temperature greater or equal to 100.4F? No History of Bone Marrow Transplant prior 6 months or solid organ transplant in the past 3 months ? No History of fainting after a prior injection or medical procedure? No- ? If patient has fainted in the past, the CDC recommends sitting or lying down for 15 minutes after the vaccination. [] VERIFICATION color enhanced section Was the answer Yes for any of the above contraindications? No contraindications present. Acceptable to proceed with vaccine. Patient/guardian agrees the above answers are true to the best of their knowledge? Yes Flu vaccine information sheet given? Yes See immunization activity in [facility] for details of immunizations adminstered today. Patient age: [age] year old For The 9427-0970 Flu Season 6-35 months old: Fluzone 0.25 ml - IM (Preservative Free) 3 years of age: Fluzone 0.5 ml - IM (Preservative Free) 3 years and older: Fluzone 0.5 ml- IM-(with Preservatives) 65+ years old: 2-49 years old Fluzone High-Dose 0.5 ml - IM (Preservative Free) FLUMIST- intranasal REMEMBER: If patient is less than 9 years of age and this is the first vaccine of Influenza to be received in any flu season, they should receive a second dose in one months time. PROGRESS Observed: 03/22/2018 Status: COMPLETED Source: [place] 2:23 PM [facility] REPOSITORY O ID: [id number] Author: Willie Isaacs Service: (none) Author Type: Physician Type: Progress Notes Filed: 03/23/2018 9:09 AM Note Text: [facility], 03/22/18: ? INTERVAL HISTORY: The last Pulmonary Clinic visit was 11/2017. Since then the patient has had 1 ED visit for exacerbation, resolved with prednisone and antibiotic. There has been no hospital admission for exacerbation. Claims to be consistently compliant with prescribed maintenance Rx: Symbicort 2 inhalations twice daily and Spiriva 1 inhalation once daily. 3-4 times daily rescue bronchodilator use, with relief; less often in less humid weather. Daily cough, especially at night. No hemoptysis or purulent sputum. Also wheezing primarily at night. No dyspnea at rest. Exertional dyspnea also worst in humid weather. Able to accomplish activities of daily living with rests and slowing pace. ? PMH: Updated with patient today. FAMH: Updated with patient today. SOCH: Updated with patient today. ? Immunization History Administered Date(s) Administered Influenza Seasonal Inj Age 3+ 04/25/2014 Influenza Seasonal Inj Quadrivalent Age 3+ 04/15/2015 06/04/2016 06/07/2017 Influenza Vaccine, Split-Non Spec 05/09/2013 Pneumococcal-13 Vac Conjugate 09/12/2015 Pneumovax 04/25/2014 Tdap (Age 7+) 06/04/2016 ? ROS: Reviewed with patient, confirmed as documented by Stefani Avila LPN. TO ? Allergies were reviewed and updated, and medications were reconciled with the patient. ? PHYSICAL EXAMINATION: BP 122/66 Pulse 100 Resp 16 Ht 5' 4 (1.63m) Wt 162 lb (73.5kg) SpO2 96% BMI 27.79 kg/(m2). Gen: No acute distress. Cooperative with examination. ENT: Oral hygeine and dentition good. Pharynx clear. No halitosis. No sign of oral thrush. Resp: No stridor, accessory respiratory muscle use, supra- sternal or intercostal retractions. No wheezes, crackles. CV: Regular rythm. Heart tones normal. No carotid bruit. Radial pulses normal. Abd: Non distended. MSK: No kyphoscoliosis. Ext: Warm and well perfused. No clubbing, cyanosis, edema. Skin: No rash, ecchymoses. Neuro: Mental status normal. Affect normal. No tremor. ? DATA REVIEW: DATE: 03/22/18 12/09/17 06/10/17 12/09/16 09/10/16 03/05/16 FVC 3.10, 90% 3.04 86% 2.98 86 % 2.93?85?% 2.83?81?% 2.61?73?% FEV1 1.22, 46% 1.25 45% 1.27 47% 1.33?49?% 1.27?47?% 0.96?34?% FEV1/FVC 0.39 0.41 0.43 0.45 0.45 0.37 ? Echo, 10/05/17 CONCLUSIONS: - Exam indication: Re-evaluation of known pericardial effusion to guide management ?/ therapy - The left ventricle is small. Left ventricular systolic function is hyperdynamic. ?EF = 75 ? 5% (2D 4-ch.) Grade I left ventricular diastolic dysfunction. - The right ventricle is dilated. Right ventricular systolic function is normal. - Moderate circumferential pericardial effusion, without evidence for tamponade. - LVOT gradient at rest is 31 mmHg, with valsalva LVOT gradient increases to 46 mmHg. - Since prior echocardiographic exam performed on 12/21/2016 ? IMPRESSION/RECOMMEND: COPD, severe, but current FEV1 20=% better than 02/2016. 1. Continue current maintenance Rx: Spiriva once daily, Symbicort 2 inhalations twice daily. Rinse your mouth after each use to help prevent oral thrush. 2. Continue rescue Albuterol as needed for relief of shortness of breath or wheezing, up to 4 times daily. 3. Annual Influenza vaccination today. 4. Pneumococcal vaccination up to date. 5. Re-assess in 6 months, sooner if needed. ? Tobacco use disorder. Discussed risks of smoking and strongly urged patient to quit as soon as possible. Patient trying. Right lower leg laceration from car door, healing cleanly. - Continue current local/topical care. I addressed the questions of the patient, and she expressed understanding and acceptance of my answers. ? Willie Isaacs MD, [facility] [address] [place] [address] P: [phone] F: [phone] [email or web address] CNOV Observed: 03/22/2018 Status: COMPLETED Source: [place] 2:00 PM [facility] REPOSITORY Office Visit (PULMWS) CRUZ JACOBO ([id number]) 1960 F Date Time Provider Department 03/22/18 2:00 PM WILLIE ISAACS During your visit today, we recorded the following information about you: Pulse Respiration Blood pressure Weight 100/minute 16/minute 122/66 73.5 kg Height 1.626 m Stefani Avila [facility] 03/22/2018 1:55 PM Signed Intake information documented in the prior visit with Flory Alanis, COUNTY ENGINEER today. Stefani Avila INDUSTRIAL ENGINEER 03/22/2018 2:19 PM Signed ROS: General: Generally feels well, better now that the weather has changed. Appetite good. Eyes, Ears, nose, throat: denies post nasal drip. denies rhinorrhea. denies purulent nasal discharge. denies epistaxis. denies hoarseness. Vision stable. Cardiac: denies angina, denies edema, denies orthopnea. GI: denies heartburn. denies dysphagia. denies diarrhea. Uro/REGULATORY AUDITOR: denies dysuria. denies hesitancy. denies nocturia. Menses: post menopausal Musculoskeletal: I hurt all over. Neuro: denies headache, denies focal weakness. denies tremor. Skin: denies rash, hit her leg with a car door recently and has wound on her leg. Otherwise negative. Willie Isaacs MD 03/23/2018 9:09 AM Signed [facility] [place], 03/22/18: ? INTERVAL HISTORY: The last Pulmonary Clinic visit was 11/2017. Since then the patient has had 1 ED visit for exacerbation, resolved with prednisone and antibiotic. There has been no hospital admission for exacerbation. Claims to be consistently compliant with prescribed maintenance Rx: Symbicort 2 inhalations twice daily and Spiriva 1 inhalation once daily. 3-4 times daily rescue bronchodilator use, with relief; less often in less humid weather. Daily cough, especially at night. No hemoptysis or purulent sputum. Also wheezing primarily at night. No dyspnea at rest. Exertional dyspnea also worst in humid weather. Able to accomplish activities of daily living with rests and slowing pace. ? PMH: Updated with patient today. FAMH: Updated with patient today. SOCH: Updated with patient today. ? Immunization History Administered Date(s) Administered Influenza Seasonal Inj Age 3+ 04/25/2014 Influenza Seasonal Inj Quadrivalent Age 3+ 04/15/2015 06/04/2016 06/07/2017 Influenza Vaccine, Split-Non Spec 05/09/2013 Pneumococcal-13 Vac Conjugate 09/12/2015 Pneumovax 04/25/2014 Tdap (Age 7+) 06/04/2016 ? ROS: Reviewed with patient, confirmed as documented by Stefani Avila LPN. TO ? Allergies were reviewed and updated, and medications were reconciled with the patient. ? PHYSICAL EXAMINATION: BP 122/66 Pulse 100 Resp 16 Ht 5' 4 (1.63m) Wt 162 lb (73.5kg) SpO2 96% BMI 27.79 kg/(m2). Gen: No acute distress. Cooperative with examination. ENT: Oral hygeine and dentition good. Pharynx clear. No halitosis. No sign of oral thrush. Resp: No stridor, accessory respiratory muscle use, supra- sternal or intercostal retractions. No wheezes, crackles. CV: Regular rythm. Heart tones normal. No carotid bruit. Radial pulses normal. Abd: Non distended. MSK: No kyphoscoliosis. Ext: Warm and well perfused. No clubbing, cyanosis, edema. Skin: No rash, ecchymoses. Neuro: Mental status normal. Affect normal. No tremor. ? DATA REVIEW: DATE: 03/22/18 12/09/17 06/10/17 12/09/16 09/10/16 03/05/16 FVC 3.10, 90% 3.04 86% 2.98 86 % 2.93?85?% 2.83?81?% 2.61?73?% FEV1 1.22, 46% 1.25 45% 1.27 47% 1.33?49?% 1.27?47?% 0.96?34?% FEV1/FVC 0.39 0.41 0.43 0.45 0.45 0.37 ? Echo, 10/05/17 CONCLUSIONS: - Exam indication: Re-evaluation of known pericardial effusion to guide management ?/ therapy - The left ventricle is small. Left ventricular systolic function is hyperdynamic. ?EF = 75 ? 5% (2D 4-ch.) Grade I left ventricular diastolic dysfunction. - The right ventricle is dilated. Right ventricular systolic function is normal. - Moderate circumferential pericardial effusion, without evidence for tamponade. - LVOT gradient at rest is 31 mmHg, with valsalva LVOT gradient increases to 46 mmHg. - Since prior CC echocardiographic exam performed on 12/21/2016 ? IMPRESSION/RECOMMEND: COPD, severe, but current FEV1 20=% better than 02/2016. 1. Continue current maintenance Rx: Spiriva once daily, Symbicort 2 inhalations twice daily. Rinse your mouth after each use to help prevent oral thrush. 2. Continue rescue Albuterol as needed for relief of shortness of breath or wheezing, up to 4 times daily. 3. Annual Influenza vaccination today. 4. Pneumococcal vaccination up to date. 5. Re-assess in 6 months, sooner if needed. ? Tobacco use disorder. Discussed risks of smoking and strongly urged patient to quit as soon as possible. Patient trying. Right lower leg laceration from car door, healing cleanly. - Continue current local/topical care. I addressed the questions of the patient, and she expressed understanding and acceptance of my answers. ? Willie Isaacs MD, [facility] [place] [facility] [address] [place] [address] P: [phone] F: [phone] [email or web address] Stefani Pantjacquelyn DON 03/23/2018 9:09 AM Signed 57 year old female here for INACTIVATED INFLUENZA VACCINE. [id number] Season Patient is identified by name and date of : Yes [] CONTRAINDICATIONS color enhanced section Age less than 6 months? No Allergy to eggs, chicken, chicken feathers, or chicken dander? No Allergy to thimerosal (a preservative) or formaldehyde, gelatin? No History of severe reaction to any vaccine component or a previous dose of influenza vaccination? No History of Guillain-[place] Syndrome within 6 weeks after a previous influenza vaccine? No Patient is not moderately or severely ill? No Current temperature greater or equal to 100.4F? No History of Bone Marrow Transplant prior 6 months or solid organ transplant in the past 3 months ? No History of fainting after a prior injection or medical procedure? No- ? If patient has fainted in the past, the CDC recommends sitting or lying down for 15 minutes after the vaccination. [] VERIFICATION color enhanced section Was the answer Yes for any of the above contraindications? No contraindications present. Acceptable to proceed with vaccine. Patient/guardian agrees the above answers are true to the best of their knowledge? Yes Flu vaccine information sheet given? Yes See immunization activity in [facility] for details of immunizations adminstered today. Patient age: [age] year old For The 5539-3252 Flu Season 6-35 months old: Fluzone 0.25 ml - IM (Preservative Free) 3 years of age: Fluzone 0.5 ml - IM (Preservative Free) 3 years and older: Fluzone 0.5 ml- IM-(with Preservatives) 65+ years old: 2-49 years old Fluzone High-Dose 0.5 ml - IM (Preservative Free) FLUMIST- intranasal REMEMBER: If patient is less than 9 years of age and this is the first vaccine of Influenza to be received in any flu season, they should receive a second dose in one months time. Willie Isaacs MD 03/22/2018 2:45 PM Signed IMPRESSION/RECOMMEND: COPD, severe, but current FEV1 20=% better than 02/2016. 1. Continue current maintenance Rx: Spiriva once daily, Symbicort 2 inhalations twice daily. Rinse your mouth after each use to help prevent oral thrush. 2. Continue rescue Albuterol as needed for relief of shortness of breath or wheezing, up to 4 times daily. 3. Annual Influenza vaccination today. 4. Pneumococcal vaccination up to date. 5. Re-assess in 6 months, sooner if needed. ? Tobacco use disorder. Discussed risks of smoking and strongly urged patient to quit as soon as possible. Patient trying. Right lower leg laceration from car door, healing cleanly. - Continue current local/topical care. Willie Isaacs MD, [facility] [address] [place] [address] P: [phone] F: [phone] [email or web address] Referring Provider: KAITLIN CASTAÑEDA [[id number]] Allergies As of Date: 03/22/2018 Noted Allergy Reaction BEE STING 05/09/2013 7 - Swelling 12 - Shortness of Breath ALEVE (NAPROXEN) 05/09/2013 4 - Hives Date Reviewed: 03/22/2018 Reviewed by: Willie Isaacs - Fully Assessed Reason for Visit: Established Patient [175] Cmt: COPD Imm/Inj [58] Cmt: Flu Vaccine Reason For Visit History Recorded Primary Visit Diagnosis:Pulmonary emphysema, unspecified emphysema type (HCC) [J43.9] Other Visit Diagnoses:COPD with chronic bronchitis (HCC) [J44.9] Tobacco use disorder [F17.200] Need for vaccination [Z23] Order(s):INFLUENZA VACCINE QUADRIVALENT AGE 3 YRS PLUS + IM [[id number]] Order #: [id number] Prescriptions as of 03/22/2018 Sig: BACLOFEN 20 MG TABLET take 1 tablet by mouth 2 to t* COLCHICINE 0.6 MG TABLET take 1 tablet by mouth twice * GABAPENTIN 400 MG CAPSULE take 3 capsules by mouth at b* IBUPROFEN 800 MG TABLET take 1 tablet by mouth every * SYMBICORT 160 MCG-4.5 MCG/ACT* Inhale 2 Puffs as instructed * TIOTROPIUM BROMIDE 18 MCG CAP* Inhale 1 capsule as instructe* EPINEPHRINE 0.3 MG/0.3 ML INJ* Inject 0.3 mL intramuscularly* ALBUTEROL SULFATE HFA 90 MCG/* Inhale 2 Puffs as instructed * OMEPRAZOLE 20 MG CAPSULE,DIONE* take 1 capsule by mouth every* OXYBUTYNIN CHLORIDE ER 10 MG * take 1 tablet by mouth once d* ROPINIROLE 0.5 MG TABLET take 2 tablets by mouth at be* ATORVASTATIN 10 MG TABLET take 1 tablet by mouth daily * BUPROPION HCL SR 150 MG TABLE* Take one tab a day for 2 week* AMLODIPINE 5 MG TABLET take 1 tablet by mouth once d* BENAZEPRIL 20 MG TABLET Take 1 tablet by mouth once d* ASPIRIN 81 MG TABLET,DELAYED * Take 1 tablet by mouth once d* Problem List As Of Date 03/22/2018 Noted Resolved Seasonal allergies [J30.2] Priority: B Routine gynecological examination [Z01.419] Priority: E More... Urge incontinence [N39.41] INVALID FOR* Priority: B Insomnia [G47.00] INVALID FOR* Priority: B Vitamin D deficiency [E55.9] INVALID FOR* Priority: A Smoker [F17.200] INVALID FOR* Priority: C More... Lipoma of buttock [D17.1] INVALID FOR* Priority: C More... More... Fibromyalgia [M79.7] INVALID FOR* Priority: B Essential hypertension [I10] INVALID FOR* Priority: A Chronic obstructive pulmonary disease (HCC) [J4*INVALID FOR* Priority: A More... Mixed hyperlipidemia [E78.2] INVALID FOR* Priority: A Gastroesophageal reflux disease without esophag*INVALID FOR* Priority: A Low back pain [M54.5] INVALID FOR* Priority: M More... Arthritis of both knees [M17.0] INVALID FOR* Priority: M More... Pericardial effusion [I31.3] INVALID FOR* Priority: A More... Carpal tunnel syndrome of left wrist [G56.02] INVALID FOR* Priority: M More... Obesity (BMI 35.0-39.9 without comorbidity) [E6*INVALID FOR*01/12/2017 Obesity (BMI 30.0-34.9) [E66.9] INVALID FOR* Priority: B More... Current use of proton pump inhibitor [Z79.899] INVALID FOR* More... Lumbar canal stenosis [M48.061] INVALID FOR* Priority: M More... Lumbar foraminal stenosis [M99.83] INVALID FOR* Priority: M Lumbar facet arthropathy (HCC) [M47.816] INVALID FOR* Priority: M CHF (congestive heart failure) (HCC) [I50.9] INVALID FOR* Priority: A More... YEN positive [R76.8] INVALID FOR* Priority: B More... Medicare annual wellness visit, subsequent [Z00*INVALID FOR* Priority: E More... Well adult exam [Z00.00] INVALID FOR* Priority: E More... Screening for colon cancer [Z12.11] INVALID FOR* Encounter for screening mammogram for breast ca*INVALID FOR* Elevated hemoglobin (HCC) [D58.2] INVALID FOR* Secondary polycythemia [D75.1] INVALID FOR* Priority: B More... Notes for Staff Discussed this visit Other instructions from your clinician: IMPRESSION/RECOMMEND: COPD, severe, but current FEV1 20=% better than 02/2016. 1. Continue current maintenance Rx: Spiriva once daily, Symbicort 2 inhalations twice daily. Rinse your mouth after each use to help prevent oral thrush. 2. Continue rescue Albuterol as needed for relief of shortness of breath or wheezing, up to 4 times daily. 3. Annual Influenza vaccination today. 4. Pneumococcal vaccination up to date. 5. Re-assess in 6 months, sooner if needed. ? Tobacco use disorder. Discussed risks of smoking and strongly urged patient to quit as soon as possible. Patient trying. Right lower leg laceration from car door, healing cleanly. - Continue current local/topical care. Willie Isaacs MD, [facility] [place] [facility] [address] [place] [address] P: [phone] F: [phone] [email or web address] Visit Notes: >> Stefani Avila LPN marilia Mar 22, 2018 1:52 PM Status: Signed Intake information documented in the prior visit with Flory Alanis CRT today. >> Stefani Avila LPN marilia Mar 22, 2018 2:04 PM Status: Signed ROS: General: Generally feels well, better now that the weather has changed. Appetite good. Eyes, Ears, nose, throat: denies post nasal drip. denies rhinorrhea. denies purulent nasal discharge. denies epistaxis. denies hoarseness. Vision stable. Cardiac: denies angina, denies edema, denies orthopnea. GI: denies heartburn. denies dysphagia. denies diarrhea. Uro/REGULATORY AUDITOR: denies dysuria. denies hesitancy. denies nocturia. Menses: post menopausal Musculoskeletal: I hurt all over. Neuro: denies headache, denies focal weakness. denies tremor. Skin: denies rash, hit her leg with a car door recently and has wound on her leg. Otherwise negative. Medications Discontinued During This Encounter cholecalciferol, vitamin D3, 4,000 u* 30 c* 11 03/05/2016 03/22/2018 Route: ORAL Sig: Take 1 capsule by mouth once daily. Disc: Discontinued by another Health Care Provider Follow Up: Discussed this visit Disposition: Return in about 6 months (around 09/19/2018). Follow-up and Disposition History Recorded Encounter Status:Closed by WILLIE ISAACS MD on 03/23/18 PROGRESS Observed: 03/04/2018 Status: COMPLETED Source: [place] 10:57 AM [facility] REPOSIT[facility] HNO ID: [id number] Author: Eugenio Ruiz Service: (none) Author Type: Physician Type: Progress Notes Filed: 03/04/2018 6:21 PM Note Text: PERTINENT CARDIAC HISTORY Pericardial effusion - recurrent, etiology? HTN HL Pulmonary hypertension - mild RV dilatation Tobacco use ADHERENCE TO GUIDELINES EDWARD-I or ARB for HF with prior LVEF<40 (NQF 0081) - N/A ASA or Plavix for ASHD (NQF 0067) - met Beta adam for ASHD with prior PA or prior LVEF<40 (NQF 0070) - N/A Beta adam for HF with prior LVEF<40 (NQF 0083) - N/A EDWARD-I or ARB for ASHD with DM or prior LVEF<40 (NQF 0066) - N/A Statin therapy for ASHD or FHL or DM - met BMI documented and plan if >25 (NQF 0421) - lifestyle recommendation form Tobacco use screening and referral (NQF 0028) - lifestyle recommendation form Recommendation for whole food, plant based diet - lifestyle recommendation form CLINICAL IMPRESSION/PLAN: Cruz Jacobo has a persistent pericardial effusion, despite treatment with colchicine and anti-inflammatories. Etiology is unclear. Her renal function is minimally depressed. TSH is normal. YEN is positive, BUT sedimentation rate is low and bridge maintainer has told her she cannot give her the diagnosis of lupus. I recommended that she be seen in the pericardial disease clinic. Appointment will be made for the near future. I see no benefit to continuing colchicine as it has not shown any efficacy. This will be discontinued. I recognize the possibility that colchicine may be helping and her effusion may just be getting larger on its own . We reviewed the signs and symptoms of tamponade and I asked her to contact me if she experiences any. I will see her in 8 months or as needed. Written and verbal health teaching given to patient, patient verbalizes understanding and agrees with treatment plan. DIAGNOSIS FOR VISIT: Pericarditis HISTORY OF PRESENT ILLNESS Cruz Jacobo returns for follow-up of her pericardial effusion. She's had no chest discomfort. Exercise tolerance is stable. She's had no chest pressure. She's had no lightheadedness. She denies edema, syncope, palpitations, TIAs, amaurosis. She reports that she is smoking more, due to stress. She continues to have some arthralgias. She is seeing rheumatology and no specific diagnosis has been made.She has beenn compliant with colchicine and has been taking NSAIDs on a regular basis as well. ALLERGIES: ALLERGIES Allergen Reactions - Bee Sting Swelling, Shortness of Breath - Aleve [Naproxen] Hives CURRENT OUTPATIENT MEDICATIONS: baclofen (LIORESAL) 20 mg tablet take 1 tablet by mouth 2 to three times a day for muscle spasm colchicine 0.6 mg tablet take 1 tablet by mouth twice a day gabapentin (NEURONTIN) 400 mg capsule take 3 capsules by mouth at bedtime ibuprofen (MOTRIN) 800 mg tablet take 1 tablet by mouth every 8 hours with food if needed for pain SYMBICORT 160-4.5 mcg/actuation inhaler Inhale 2 Puffs as instructed twice daily. tiotropium (SPIRIVA WITH HANDIHALER) 18 mcg inhalation capsule Inhale 1 capsule as instructed once daily. USE WITH HANDIHALER. EPINEPHrine (EPIPEN) 0.3 mg/0.3 mL auto-injector Inject 0.3 mL intramuscularly as needed. albuterol HFA (PROAIR HFA) 90 mcg/actuation inhaler Inhale 2 Puffs as instructed every 6 hours as needed. omeprazole (PRILOSEC) 20 mg capsule take 1 capsule by mouth every morning 1/2 HOUR BEFORE BREAKFAST oxybutynin ER (DITROPAN XL) 10 mg 24 hr tablet take 1 tablet by mouth once daily ---TO REPLACE DETROL rOPINIRole (REQUIP) 0.5 mg tablet take 2 tablets by mouth at bedtime atorvastatin (LIPITOR) 10 mg tablet take 1 tablet by mouth daily at bedtime buPROPion SR (ZYBAN SR; WELLBUTRIN SR) 150 mg 12 hr tablet Take one tab a day for 2 weeks then go to taking one twice a day. amLODIPine (NORVASC) 5 mg tablet take 1 tablet by mouth once daily benazepril (LOTENSIN) 20 mg tablet Take 1 tablet by mouth once daily. cholecalciferol, vitamin D3, 4,000 unit cap Take 1 capsule by mouth once daily. aspirin, enteric coated (ADULT LOW DOSE ASPIRIN) 81 mg EC tablet Take 1 tablet by mouth once daily. PHYSICAL EXAMINATION: VITAL SIGNS: BP 115/80 Pulse 92 Wt 164 lb 6.4 oz (74.6kg) Chest: Clear to auscultation. Trachea is midline. Air entry is equal. Cardiac: Regular rhythm. S1 and S2 are normal. PMI is nondisplaced. There are no murmurs, rubs or gallops. Carotids are brisk without bruits. JVP is less than 10 cm. Abdomen: Soft and nontender. There are no pulsatile masses or bruits. No liver enlargement. Bowel sounds are active. Extremities: No edema. Pulses are intact and symmetrical. Recent labs are reviewed. Renal function is mildly impaired. Sedimentation rate is 2. Recent CT scan showed granulomatous disease. There is no evidence of cancer. Echocardiogram was performed today and shows a moderate to large circumferential effusion, which has increased in size since the most recent study. Left ventricular function is normal. There is no evidence of tamponade. Electronically Signed: Eugenio Ruiz MD March 04, 2018 10:57 AM CC: Tex Miller MD CNOV Observed: 03/04/2018 Status: COMPLETED Source: [place] 10:30 AM [facility] REPOSITORY Office Visit (CAWSTR) CRUZ JACOBO ([id number]) 1960 F Date Time Provider Department 03/04/18 10:30 AM EUGENIO RUIZ During your visit today, we recorded the following information about you: Pulse Blood pressure Weight 92/minute 115/80 74.6 kg Eugenio Ruiz MD 03/04/2018 6:21 PM Signed PERTINENT CARDIAC HISTORY Pericardial effusion - recurrent, etiology? HTN HL Pulmonary hypertension - mild RV dilatation Tobacco use ADHERENCE TO GUIDELINES EDWARD-I or ARB for HF with prior LVEF<40 (NQF 0081) - N/A ASA or Plavix for ASHD (NQF 0067) - met Beta adam for ASHD with prior PA or prior LVEF<40 (NQF 0070) - N/A Beta adam for HF with prior LVEF<40 (NQF 0083) - N/A EDWARD-I or ARB for ASHD with DM or prior LVEF<40 (NQF 0066) - N/A Statin therapy for ASHD or FHL or DM - met BMI documented and plan if >25 (NQF 0421) - lifestyle recommendation form Tobacco use screening and referral (NQF 0028) - lifestyle recommendation form Recommendation for whole food, plant based diet - lifestyle recommendation form CLINICAL IMPRESSION/PLAN: Cruz Jacobo has a persistent pericardial effusion, despite treatment with colchicine and anti-inflammatories. Etiology is unclear. Her renal function is minimally depressed. TSH is normal. YEN is positive, BUT sedimentation rate is low and bridge maintainer has told her she cannot give her the diagnosis of lupus. I recommended that she be seen in the pericardial disease clinic. Appointment will be made for the near future. I see no benefit to continuing colchicine as it has not shown any efficacy. This will be discontinued. I recognize the possibility that colchicine may be helping and her effusion may just be getting larger on its own . We reviewed the signs and symptoms of tamponade and I asked her to contact me if she experiences any. I will see her in 8 months or as needed. Written and verbal health teaching given to patient, patient verbalizes understanding and agrees with treatment plan. DIAGNOSIS FOR VISIT: Pericarditis HISTORY OF PRESENT ILLNESS Cruz Jacobo returns for follow-up of her pericardial effusion. She's had no chest discomfort. Exercise tolerance is stable. She's had no chest pressure. She's had no lightheadedness. She denies edema, syncope, palpitations, TIAs, amaurosis. She reports that she is smoking more, due to stress. She continues to have some arthralgias. She is seeing rheumatology and no specific diagnosis has been made.She has beenn compliant with colchicine and has been taking NSAIDs on a regular basis as well. ALLERGIES: ALLERGIES Allergen Reactions - Bee Sting Swelling, Shortness of Breath - Aleve [Naproxen] Hives CURRENT OUTPATIENT MEDICATIONS: baclofen (LIORESAL) 20 mg tablet take 1 tablet by mouth 2 to three times a day for muscle spasm colchicine 0.6 mg tablet take 1 tablet by mouth twice a day gabapentin (NEURONTIN) 400 mg capsule take 3 capsules by mouth at bedtime ibuprofen (MOTRIN) 800 mg tablet take 1 tablet by mouth every 8 hours with food if needed for pain SYMBICORT 160-4.5 mcg/actuation inhaler Inhale 2 Puffs as instructed twice daily. tiotropium (SPIRIVA WITH HANDIHALER) 18 mcg inhalation capsule Inhale 1 capsule as instructed once daily. USE WITH HANDIHALER. EPINEPHrine (EPIPEN) 0.3 mg/0.3 mL auto-injector Inject 0.3 mL intramuscularly as needed. albuterol HFA (PROAIR HFA) 90 mcg/actuation inhaler Inhale 2 Puffs as instructed every 6 hours as needed. omeprazole (PRILOSEC) 20 mg capsule take 1 capsule by mouth every morning 1/2 HOUR BEFORE BREAKFAST oxybutynin ER (DITROPAN XL) 10 mg 24 hr tablet take 1 tablet by mouth once daily ---TO REPLACE DETROL rOPINIRole (REQUIP) 0.5 mg tablet take 2 tablets by mouth at bedtime atorvastatin (LIPITOR) 10 mg tablet take 1 tablet by mouth daily at bedtime buPROPion SR (ZYBAN SR; WELLBUTRIN SR) 150 mg 12 hr tablet Take one tab a day for 2 weeks then go to taking one twice a day. amLODIPine (NORVASC) 5 mg tablet take 1 tablet by mouth once daily benazepril (LOTENSIN) 20 mg tablet Take 1 tablet by mouth once daily. cholecalciferol, vitamin D3, 4,000 unit cap Take 1 capsule by mouth once daily. aspirin, enteric coated (ADULT LOW DOSE ASPIRIN) 81 mg EC tablet Take 1 tablet by mouth once daily. PHYSICAL EXAMINATION: VITAL SIGNS: BP 115/80 Pulse 92 Wt 164 lb 6.4 oz (74.6kg) Chest: Clear to auscultation. Trachea is midline. Air entry is equal. Cardiac: Regular rhythm. S1 and S2 are normal. PMI is nondisplaced. There are no murmurs, rubs or gallops. Carotids are brisk without bruits. JVP is less than 10 cm. Abdomen: Soft and nontender. There are no pulsatile masses or bruits. No liver enlargement. Bowel sounds are active. Extremities: No edema. Pulses are intact and symmetrical. Recent labs are reviewed. Renal function is mildly impaired. Sedimentation rate is 2. Recent CT scan showed granulomatous disease. There is no evidence of cancer. Echocardiogram was performed today and shows a moderate to large circumferential effusion, which has increased in size since the most recent study. Left ventricular function is normal. There is no evidence of tamponade. Electronically Signed: Eugenio Ruiz MD March 04, 2018 10:57 AM CC: MD Eugenio Bonds MD 03/04/2018 10:57 AM Signed LIFESTYLE CHANGE A healthy lifestyle is the most important component of your overall treatment plan. 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 EAT A WHOLE FOOD, PLANT BASED DIET The nutrition your body gets is more important than the medicine you take. What matters most is the overall way you eat. We encourage you to minimize the use of animal products (which include dairy and all meats except fatty fish) and use whole, unprocessed plant foods to provide your protein, vitamins and other nutrients. We have a lot of information to share with you on this topic. This is not a diet. It is a way of life that you will keep with you. EXERCISE REGULARLY It is not important to spend hours in the gym, lifting weights and perspiring heavily. A total of 2-3 hours per week of aerobic (causing you to be moderately short of breath) exercise is sufficient to improve your health. Talk to us before you begin a new exercise program, if you have heart disease or experience shortness of breath or chest pain. REDUCE STRESS Chronic emotional and physical stress leads to disease. Ways of reducing stress include meditation, visualization, prayer, yoga and other forms of relaxation therapy. Consistency is the hayes. Find a technique that works for you and do it every day. CULTIVATE RELATIONSHIPS Loneliness and isolation have a major negative impact on health. Seek out others who can love, care for and nurture you. Avoid hurtful relationships. MAINTAIN IDEAL BODY WEIGHT The best way to do this is to do all the things above. Our bodies naturally find the right weight if we keep moving and feed ourselves the right food. If your BMI is greater than 25, we strongly recommend a referral to a weight management program. Please speak to us or your family physician about available programs. AVOID NICOTINE IN ALL FORMS This includes all tobacco products, whether chewed, smoked, vaped, or rubbed on the skin. Smoking cessation programs, which can make use of tobacco substitutes, medications to suppress cravings and behavior management, are available. Please contact your family physician about programs in your area. Referring Provider: EUGENIO RUIZ [[id number]] Allergies As of Date: 03/04/2018 Noted Allergy Reaction BEE STING 05/09/2013 7 - Swelling 12 - Shortness of Breath ALEVE (NAPROXEN) 05/09/2013 4 - Hives Date Reviewed: 03/04/2018 Reviewed by: Kameron Ferrer RN - Fully Assessed Reason for Visit: Recheck [92] Primary Visit Diagnosis:Idiopathic pericarditis, unspecified chronicity [I30.0] Order(s):CELIA [057744] Order #: [id number]: 1 FUTURE Prescriptions as of 03/04/2018 Sig: BACLOFEN 20 MG TABLET take 1 tablet by mouth 2 to t* COLCHICINE 0.6 MG TABLET take 1 tablet by mouth twice * X GABAPENTIN 400 MG CAPSULE take 3 capsules by mouth at b* IBUPROFEN 800 MG TABLET take 1 tablet by mouth every * SYMBICORT 160 MCG-4.5 MCG/ACT* Inhale 2 Puffs as instructed * TIOTROPIUM BROMIDE 18 MCG CAP* Inhale 1 capsule as instructe* EPINEPHRINE 0.3 MG/0.3 ML INJ* Inject 0.3 mL intramuscularly* ALBUTEROL SULFATE HFA 90 MCG/* Inhale 2 Puffs as instructed * OMEPRAZOLE 20 MG CAPSULE,DIONE* take 1 capsule by mouth every* OXYBUTYNIN CHLORIDE ER 10 MG * take 1 tablet by mouth once d* ROPINIROLE 0.5 MG TABLET take 2 tablets by mouth at be* ATORVASTATIN 10 MG TABLET take 1 tablet by mouth daily * X BUPROPION HCL SR 150 MG TABLE* Take one tab a day for 2 week* AMLODIPINE 5 MG TABLET take 1 tablet by mouth once d* BENAZEPRIL 20 MG TABLET Take 1 tablet by mouth once d* X CHOLECALCIFEROL (VITAMIN D3) * Take 1 capsule by mouth once * ASPIRIN 81 MG TABLET,DELAYED * Take 1 tablet by mouth once d* Medication notes this encounter CHOLECALCIFEROL (VITAMIN D3) 4,000 UNIT CAPSULE >> Kameron Ferrer RN 03/04/2018 10:32 AM >> KAMERON FERRER RN WedMar 04, 2018 10:32 AM Problem List As Of Date 03/04/2018 Noted Resolved Seasonal allergies [J30.2] Priority: B Routine gynecological examination [Z01.419] Priority: E More... Urge incontinence [N39.41] INVALID FOR* Priority: B Insomnia [G47.00] INVALID FOR* Priority: B Vitamin D deficiency [E55.9] INVALID FOR* Priority: A Smoker [F17.200] INVALID FOR* Priority: C More... Lipoma of buttock [D17.1] INVALID FOR* Priority: C More... More... Fibromyalgia [M79.7] INVALID FOR* Priority: B Essential hypertension [I10] INVALID FOR* Priority: A Chronic obstructive pulmonary disease (HCC) [J4*INVALID FOR* Priority: A More... Mixed hyperlipidemia [E78.2] INVALID FOR* Priority: A Gastroesophageal reflux disease without esophag*INVALID FOR* Priority: A Low back pain [M54.5] INVALID FOR* Priority: M More... Arthritis of both knees [M17.0] INVALID FOR* Priority: M More... Pericardial effusion [I31.3] INVALID FOR* Priority: A More... Carpal tunnel syndrome of left wrist [G56.02] INVALID FOR* Priority: M More... Obesity (BMI 35.0-39.9 without comorbidity) [E6*INVALID FOR*01/12/2017 Obesity (BMI 30.0-34.9) [E66.9] INVALID FOR* Priority: B More... Current use of proton pump inhibitor [Z79.899] INVALID FOR* More... Lumbar canal stenosis [M48.061] INVALID FOR* Priority: M More... Lumbar foraminal stenosis [M99.83] INVALID FOR* Priority: M Lumbar facet arthropathy (HCC) [M47.816] INVALID FOR* Priority: M CHF (congestive heart failure) (HCC) [I50.9] INVALID FOR* Priority: A More... YEN positive [R76.8] INVALID FOR* Priority: B More... Medicare annual wellness visit, subsequent [Z00*INVALID FOR* Priority: E More... Well adult exam [Z00.00] INVALID FOR* Priority: E More... Screening for colon cancer [Z12.11] INVALID FOR* Encounter for screening mammogram for breast ca*INVALID FOR* Elevated hemoglobin (HCC) [D58.2] INVALID FOR* Secondary polycythemia [D75.1] INVALID FOR* Priority: B More... Other instructions from your clinician: LIFESTYLE CHANGE A healthy lifestyle is the most important component of your overall treatment plan. Please give serious thought to the following areas and commit to making residential changes. EAT A WHOLE FOOD, PLANT BASED DIET The nutrition your body gets is more important than the medicine you take. What matters most is the overall way you eat. We encourage you to minimize the use of animal products (which include dairy and all meats except fatty fish) and use whole, unprocessed plant foods to provide your protein, vitamins and other nutrients. We have a lot of information to share with you on this topic. This is not a diet. It is a way of life that you will keep with you. EXERCISE REGULARLY It is not important to spend hours in the gym, lifting weights and perspiring heavily. A total of 2-3 hours per week of aerobic (causing you to be moderately short of breath) exercise is sufficient to improve your health. Talk to us before you begin a new exercise program, if you have heart disease or experience shortness of breath or chest pain. REDUCE STRESS Chronic emotional and physical stress leads to disease. Ways of reducing stress include meditation, visualization, prayer, yoga and other forms of relaxation therapy. Consistency is the hayes. Find a technique that works for you and do it every day. CULTIVATE RELATIONSHIPS Loneliness and isolation have a major negative impact on health. Seek out others who can love, care for and nurture you. Avoid hurtful relationships. MAINTAIN IDEAL BODY WEIGHT The best way to do this is to do all the things above. Our bodies naturally find the right weight if we keep moving and feed ourselves the right food. If your BMI is greater than 25, we strongly recommend a referral to a weight management program. Please speak to us or your family physician about available programs. AVOID NICOTINE IN ALL FORMS This includes all tobacco products, whether chewed, smoked, vaped, or rubbed on the skin. Smoking cessation programs, which can make use of tobacco substitutes, medications to suppress cravings and behavior management, are available. Please contact your family physician about programs in your area. Follow-up and Disposition History Recorded Encounter Status:Closed by EUGENIO RUIZ MD on 03/04/18 PROGRESS Observed: 02/23/2018 Status: COMPLETED Source: [place] 1:29 PM [facility] REPOSITORY HNO ID: [id number] Author: Johanna ([facility] Ed) Camille Service: (none) Author Type: Health Educator Type: Progress Notes Filed: 02/23/2018 1:30 PM Note Text: WELLNESS SMOKING CESSATION Contact by Smoking Cessation Navigator Successful: Yes Outreach attempted by: Email Eagerness/motivation to quit: Yes Intervention Chosen By Patient: eCoaching e[employer] Relish Blender/Smoking Cessation Navigator: Johanna Fuentes [facility] Observed: 02/23/2018 Status: COMPLETED Source: [place] 12:00 AM [facility] REPOSITORY Patient Update (WIQ) CRUZ JACOBO ([id number]) 1960 F Date Time Provider Department 02/23/18 JOHANNA FUENTES ([facility])WIQ During your visit today, we recorded the following information about you: Johanna Fuentes, [facility] Ed 02/23/2018 1:30 PM Signed WELLNESS SMOKING CESSATION Contact by Smoking Cessation Navigator Successful: Yes Outreach attempted by: Email Eagerness/motivation to quit: Yes Intervention Chosen By Patient: eCoaching [employer] Relish Blender/Smoking Cessation Navigator: Johanna Fuentes [facility] Allergies As of Date: 02/23/2018 Noted Allergy Reaction BEE STING 05/09/2013 7 - Swelling 12 - Shortness of Breath ALEVE (NAPROXEN) 05/09/2013 4 - Hives Date Reviewed: 01/26/2018 Reviewed by: Manju Camejo Ma - Fully Assessed Reason for Visit: Smoking Cessation [1387] Prescriptions as of 02/23/2018 Sig: BACLOFEN 20 MG TABLET take 1 tablet by mouth 2 to t* COLCHICINE 0.6 MG TABLET take 1 tablet by mouth twice * GABAPENTIN 400 MG CAPSULE take 3 capsules by mouth at b* IBUPROFEN 800 MG TABLET take 1 tablet by mouth every * SYMBICORT 160 MCG-4.5 MCG/ACT* Inhale 2 Puffs as instructed * TIOTROPIUM BROMIDE 18 MCG CAP* Inhale 1 capsule as instructe* EPINEPHRINE 0.3 MG/0.3 ML INJ* Inject 0.3 mL intramuscularly* ALBUTEROL SULFATE HFA 90 MCG/* Inhale 2 Puffs as instructed * OMEPRAZOLE 20 MG CAPSULE,DIONE* take 1 capsule by mouth every* OXYBUTYNIN CHLORIDE ER 10 MG * take 1 tablet by mouth once d* ROPINIROLE 0.5 MG TABLET take 2 tablets by mouth at be* ATORVASTATIN 10 MG TABLET take 1 tablet by mouth daily * BUPROPION HCL SR 150 MG TABLE* Take one tab a day for 2 week* AMLODIPINE 5 MG TABLET take 1 tablet by mouth once d* BENAZEPRIL 20 MG TABLET Take 1 tablet by mouth once d* CHOLECALCIFEROL (VITAMIN D3) * Take 1 capsule by mouth once * ASPIRIN 81 MG TABLET,DELAYED * Take 1 tablet by mouth once d* Problem List As Of Date 02/23/2018 Noted Resolved Seasonal allergies [J30.2] Priority: B Routine gynecological examination [Z01.419] Priority: E More... Urge incontinence [N39.41] INVALID FOR* Priority: B Insomnia [G47.00] INVALID FOR* Priority: B Vitamin D deficiency [E55.9] INVALID FOR* Priority: A Smoker [F17.200] INVALID FOR* Priority: C More... Lipoma of buttock [D17.1] INVALID FOR* Priority: C More... More... Fibromyalgia [M79.7] INVALID FOR* Priority: B Essential hypertension [I10] INVALID FOR* Priority: A Chronic obstructive pulmonary disease (HCC) [J4*INVALID FOR* Priority: A More... Mixed hyperlipidemia [E78.2] INVALID FOR* Priority: A Gastroesophageal reflux disease without esophag*INVALID FOR* Priority: A Low back pain [M54.5] INVALID FOR* Priority: M More... Arthritis of both knees [M17.0] INVALID FOR* Priority: M More... Pericardial effusion [I31.3] INVALID FOR* Priority: A More... Carpal tunnel syndrome of left wrist [G56.02] INVALID FOR* Priority: M More... Obesity (BMI 35.0-39.9 without comorbidity) [E6*INVALID FOR*01/12/2017 Obesity (BMI 30.0-34.9) [E66.9] INVALID FOR* Priority: B More... Current use of proton pump inhibitor [Z79.899] INVALID FOR* More... Lumbar canal stenosis [M48.061] INVALID FOR* Priority: M More... Lumbar foraminal stenosis [M99.83] INVALID FOR* Priority: M Lumbar facet arthropathy (HCC) [M46.96] INVALID FOR* Priority: M CHF (congestive heart failure) (HCC) [I50.9] INVALID FOR* Priority: A More... YEN positive [R76.8] INVALID FOR* Priority: B More... Medicare annual wellness visit, subsequent [Z00*INVALID FOR* Priority: E More... Well adult exam [Z00.00] INVALID FOR* Priority: E More... Screening for colon cancer [Z12.11] INVALID FOR* Encounter for screening mammogram for breast ca*INVALID FOR* Elevated hemoglobin (HCC) [D58.2] INVALID FOR* Secondary polycythemia [D75.1] INVALID FOR* Priority: B More... Encounter Status:Closed by JOHANNA FUENTES on 02/23/18 PROTEIN/CREATININE RATIO Collected: Status: F Source: [place] 01/26/2018 2:27 PM [facility] REPOSITORY TYPE CODE TESTS RESULT OUT OF REFERENCE UNITS RANGE LAB UTPR 0-20 mg/dL Protein Urine 13 Random LAB UCRR 20-300 mg/dL Creatinine,Ur 78.1 ine,Ran LAB PCRAT <0.2 High Protein/Creat 0.2 inine Ratio Performed By: #### KIMMY #### [facility] [address] [place], [place] [address] URINALYSIS Collected: 01/26/2018 Status: F Source: [place] 2:26 PM [facility] REPOSITORY TYPE CODE TESTS RESULT OUT OF RANGE REFERENCE UNITS LAB UCOL Yellow Color Yellow LAB [facility] Clear Clarity Clear LAB UGLUC Negative mg/dL Glucose, Urine Negative LAB UBIL Negative Bilirubin, Urine Negative LAB UKET Negative Ketones, Urine Negative LAB USPG 1.005-1.030 Specific [place], Ur 1.013 LAB UHGB Negative Abnormal Hemoglobin/Blood, 1+ Alert Ur LAB UPH 4.5-8.0 pH 5.0 LAB UPROT Negative mg/dL Protein, Urine Negative LAB UUROB Normal Urobilinogen Normal LAB UNITR Negative Nitrites Abnormal Positive Alert LAB ULKEST Negative Leukest Abnormal 3+ Alert LAB UCOM Comments SEE COMMENT Result Comment: Microscopic Examination Performed LAB UWBC 0-5 /HPF Abnormal WBC Alert 11-25 LAB URBC 0-3 /HPF RBC 0-3 LAB UEPI /HPF Epithelial Cells SEE COMMENT Result Comment: Few Squamous Epithelial Cells LAB UMCOM Urine SEE Dayday Comment COMMENT Result Comment: N/A Performed By: #### UA #### [facility] [address] [address] ALT Collected: 01/26/2018 Status: F Source: [place] 2:24 PM [facility] REPOSITORY TYPE CODE TESTS RESULT OUT OF RANGE REFERENCE UNITS LAB ALT 7-38 U/L ALT 22 Performed By: #### ALT, BMP #### [facility] [address] [address] BASIC METABOLIC PANL Collected: 01/26/2018 Status: F Source: [place] 2:24 PM [facility] REPOSITORY TYPE CODE TESTS RESULT OUT OF REFERENCE UNITS RANGE LAB GLU 74-99 mg/dL Glucose 94 Result Comment: The [place] [employer] (ADA) provides guidance for cutoff values for fasting glucose and random glucose. The ADA defines fasting as no caloric intake for at least 8 hours. Fas ting plasma glucose results between 100 to 125 mg/dL indicate increased risk for diabetes (prediabetes). Fasting plasma glucose results greater than or equal to 126 mg/dL meet the criteria for diagnosis of diabetes. In the absence of unequivocal hyperglycemia, results should be confirmed by repeat testing. In a patient with classic symptoms of hyperglycemia or hyperglycemic crisis, random plasma glucose results greater than or equal to 200 mg/dL meet the criteria for diagnosis of diabetes. Reference: Standards of Medical Care in Diabetes 2016, [place] [employer] Association. Diabetes Care. 2016.39(Suppl 1). LAB BUN 7-21 mg/dL BUN 13 LAB CRET 0.58-0.96 mg/dL Creatinine High 1.05 LAB NA 136-144 mmol/L Sodium 141 LAB K 3.7-5.1 mmol/L Potassium 3.9 LAB CL 97-105 mmol/L Chloride 102 LAB CO2 22-30 mmol/L CO2 26 LAB AGAP 9-18 mmol/L Anion Gap 13 LAB CA 8.5-10.2 mg/dL Calcium, Total 9.3 LAB GFRAA eGFR- Amer. >60 LAB GFRNAA . eGFR-All Other Races 54 Result Comment: eGFR (Estimated GFR) Units of measure: mL/min/1.73 meters squared eGFR is derived from the reexpressed MDRD Study equation using the following parameters: serum creatinine, age, gender and race. The creatinine assay has been calibrated to be traceable to IDMS. An eGFR <60 mL/min/1.73m2 for >3 months is consistent with chronic kidney disease. Refer to KDOQI guidelines for clinical interpretation. In patients with unstable renal function, e.g. those with acute kidney injury, the eGFR may not accurately reflect actual GFR. Performed By: #### ALT, BMP #### [facility] [address] [place] [address] SED RATE WESTERGREN Collected: 01/26/2018 Status: F Source: [place] 2:23 PM [facility] REPOSITORY TYPE CODE TESTS RESULT OUT OF REFERENCE UNITS RANGE LAB WSR 0-20 mm/hr Sed Rate Westergren 2 Performed By: #### WSR, C3COMP, C4COMP, CRP, DNA, ENAID #### [facility] [address] [place], [place] [id number] C3 COMPLEMENT Collected: 01/26/2018 Status: F Source: [place] 2:23 PM [facility] REPOSITORY TYPE CODE TESTS RESULT OUT OF REFERENCE UNITS RANGE LAB C3COMP 86-166 mg/dL C3 Complement 129 Performed By: #### WSR, C3COMP, C4COMP, CRP, DNA, ENAID #### [facility] [address] [place], [place] [address] C4 COMPLEMENT Collected: 01/26/2018 Status: F Source: [place] 2:23 PM [facility] REPOSITORY TYPE CODE TESTS RESULT OUT OF REFERENCE UNITS RANGE LAB C4COMP 13-46 mg/dL C4 Complement 20 Performed By: #### WSR, C3COMP, C4COMP, CRP, DNA, ENAID #### [facility] [address] [id number] C-REACTIVE PROTEIN Collected: 01/26/2018 Status: F Source: [place] 2:23 [facility] REPOSITORY TYPE CODE TESTS RESULT OUT OF REFERENCE UNITS RANGE LAB CRP <0.9 mg/dL High C-Reactive 1.0 Protein Performed By: #### WSR, C3COMP, C4COMP, CRP, DNA, ENAID #### [place] [address] DNA ANTIBODY W/ CONF. Collected: 01/26/2018 Status: F Source: [place] 2:23 [facility] REPOSITORY TYPE CODE TESTS RESULT OUT OF REFERENCE UNITS RANGE LAB DNA <30 IU/mL DNA Antibody <12 w/ Conf. Result Comment: Negative for ds DNA Antibodies Negative: <30 IU/mL Equivocal: 30-74 IU/mL Positive: >74 IU/mL Performed By: #### WSR, C3COMP, C4COMP, CRP, DNA, ENAID #### [place] [address] ROSALIE ANTIBODY PANEL Collected: 01/26/2018 Status: F Source: [place] 2:23 [facility] REPOSITORY TYPE CODE TESTS RESULT OUT OF REFERENCE UNITS RANGE LAB SMIB <1.0 AI Sm Antibody <0.2 Result Comment: NEGATIVE Negative: <1.0 AI Positive: >0.9 AI LAB RNPIB <1.0 AI High COMPRESSOR MECHANIC BUS Antibody 1.5 Result Comment: POSITIVE Negative: <1.0 AI Positive: >0.9 AI LAB SSAIB <1.0 AI SSA Antibody <0.2 Result Comment: NEGATIVE Negative: <1.0 AI Positive: >0.9 AI LAB SSBIB <1.0 AI SSB Antibody <0.2 Result Comment: NEGATIVE Negative: <1.0 AI Positive: >0.9 AI LAB CENTIB <1.0 AI Centromere <0.2 Result Comment: NEGATIVE Negative: <1.0 AI Positive: >0.9 AI LAB SCLIB <1.0 AI Scleroderma IgG Ab <0.2 Result Comment: NEGATIVE Negative: <1.0 AI Positive: >0.9 AI LAB JO1IB <1.0 AI YEIMY 1 Antibody <0.2 Result Comment: NEGATIVE Negative: <1.0 AI Positive: >0.9 AI LAB RRNPIB <1.0 AI Ribosomal COMPRESSOR MECHANIC BUS <0.2 Result Comment: NEGATIVE Negative: <1.0 AI Positive: >0.9 AI LAB CHRMIB <1.0 AI Chromatin Antibody <0.2 Result Comment: NEGATIVE Negative: <1.0 AI Positive: >0.9 AI Performed By: #### WSR, C3COMP, C4COMP, CRP, DNA, ENAID #### [facility] [address] [place] [address] CNOV Observed: 01/26/2018 Status: COMPLETED Source: [place] 1:40 PM [facility] REPOSITORY Office Visit (RAYA) CRUZ JACOBO ([id number]) 1960 F Date Time Provider Department 01/26/18 1:40 PM BRET CAMPOS) RAYA During your visit today, we recorded the following information about you: Temperature Pulse Blood pressure Weight 98.2 degrees 94/minute 110/78 73.5 kg Height 1.626 m Bret Campos MD 01/26/2018 2:04 PM Signed On 01/26/18, I had the pleasure of seeing Cruz Jacobo at the [facility] for follow-up of positive YEN 1:320 nucleolar. HPI: To review, Cruz Jacobo is a 57 year old female - In May, seen by Dr. Posey in [facility] rheumatology for positive YEN 1:320 nucleolar pattern and Raynaud's. Was thought to not have lupus or another autoimmune CTD given lack of other clinical features including remaining lab results. Diagnosed with mechanical back pain. Advised on smoking cessation and to return to clinic to monitor for new symptoms or findings. - In Jan, reported that neurontin started by PCP helped joint and muscle pain creating improvement with mobility. No evidence for underlying autoimmune disease found per hx, exam or labs. - In Mar, assessment unchanged - September TTE with moderate pericardial effusion. Unchanged, to monitor per cardiology - In September, reported pain of elbows, knees, neck, back and shoulders. No symptoms or findings to suggest SLE or other CTD - In Feb, was on a high dose prednisone course for COPD flare/infection-did not help joint pain at all. - In Apr, reported feeling well. Had steroid injection in back which helped back pain. - In Jan, reported unchanged baseline longstanding back pain. - Today, reports upset stomach with eating anything. Continues to have baseline shoulder/back pain - No rash, mouth sores or photosensitivity - Stable Raynaud's, remains without digital ulcers - Continues to take ibuprofen 800mg, 1-2 tabs/day PAST MEDICAL HISTORY Diagnosis Date - YEN positive 12/06/2017 Seeing Rheum - Cancer ([facility]) - CHF (congestive heart failure) ([facility]) 12/06/2017 - COPD (chronic obstructive pulmonary disease) ([facility]) - Fibromyalgia 03/09/2014 - HTN (hypertension) - Hyperlipidemia 01/30/2014 - Insomnia 09/20/2013 - Lipoma of buttock 01/25/2014 Left glut - Low back pain 05/09/2013 - Lumbar canal stenosis 12/06/2017 Moderate at L2-L3 - Lumbar facet arthropathy ([facility]) 12/06/2017 - Lumbar foraminal stenosis 12/06/2017 - 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 Ruiz, on colchicine - Routine gynecological examination Dr. Arreola - Seasonal allergies - Smoker 01/25/2014 - Substance abuse ([facility]) - Urge incontinence 06/22/2013 - Vitamin D deficiency 01/25/2014 HL Anxiety PAST SURGICAL HISTORY Procedure Laterality Date - FECAL OCCULT BLOOD TEST 12/09/2017 negative - STRESS TEST 08/28/2014 NL - HERLINDA W/WO REMOVAL TUBE OVARY HERLINDA-BSO - TONSILLECTOMY - [facility] DELIVERY SCHEDULING ORDER 2002 Review of patient's allergies indicates: Aleve (Naproxen) Hives Bee Sting Swelling, Shortness of Breath MEDICATIONS: Current Outpatient Prescriptions: colchicine 0.6 mg tablet take 1 tablet by mouth twice a day gabapentin (NEURONTIN) 400 mg capsule take 3 capsules by mouth at bedtime ibuprofen (MOTRIN) 800 mg tablet take 1 tablet by mouth every 8 hours with food if needed for pain SYMBICORT 160-4.5 mcg/actuation inhaler Inhale 2 Puffs as instructed twice daily. tiotropium (SPIRIVA WITH HANDIHALER) 18 mcg inhalation capsule Inhale 1 capsule as instructed once daily. USE WITH HANDIHALER. EPINEPHrine (EPIPEN) 0.3 mg/0.3 mL auto-injector Inject 0.3 mL intramuscularly as needed. albuterol HFA (PROAIR HFA) 90 mcg/actuation inhaler Inhale 2 Puffs as instructed every 6 hours as needed. omeprazole (PRILOSEC) 20 mg capsule take 1 capsule by mouth every morning 1/2 HOUR BEFORE BREAKFAST oxybutynin ER (DITROPAN XL) 10 mg 24 hr tablet take 1 tablet by mouth once daily ---TO REPLACE DETROL rOPINIRole (REQUIP) 0.5 mg tablet take 2 tablets by mouth at bedtime atorvastatin (LIPITOR) 10 mg tablet take 1 tablet by mouth daily at bedtime buPROPion SR (ZYBAN SR; WELLBUTRIN SR) 150 mg 12 hr tablet Take one tab a day for 2 weeks then go to taking one twice a day. amLODIPine (NORVASC) 5 mg tablet take 1 tablet by mouth once daily benazepril (LOTENSIN) 20 mg tablet Take 1 tablet by mouth once daily. baclofen (LIORESAL) 20 mg tablet Take one tab 2-3 times a day for muscle spasms cholecalciferol, vitamin D3, 4,000 unit cap Take 1 capsule by mouth once daily. aspirin, enteric coated (ADULT LOW DOSE ASPIRIN) 81 mg EC tablet Take 1 tablet by mouth once daily. No current facility-administered medications for this visit. FAMILY HISTORY Problem Relation Age of Onset - Coronary Artery Disease Mother - Diabetes Mother - Headache Mother - Hypertension Mother - COPD Mother Multiple mebers of maternal family. - Diabetes Brother - Stroke Father - Breast Cancer Sister - Cancer Sister Lung. Uncle. no known autoimmune disease per patient SOCIAL HISTORY: Lives in [place]. Has a daughter Tobacco Use: 2 packs/day Alcohol Use: No Tattoos: Yes REVIEW OF SYSTEMS: reviewed 04/10 systems, as above and as below: CONSTITUTIONAL: Fatigue, Unintentional weight loss EAR, NOSE, MOUTH, THROAT: Hearing loss, Dry mouth RESPIRATORY: Shortness of breath, Chronic cough GASTROINTESTINAL: Heartburn, Nausea, Abdominal pain MUSCULOSKELETAL: Joint pain, Morning stiffness in joints, Muscle weakness, Back pain SKIN: Color changes of hands or feet in the cold, Hair loss, Nail changes NEUROLOGIC: Headaches, Dizziness, Numbness or tingling ALLERGIC/ IMMUNOLOGIC: Allergies (other than medications) KNOWN MEDICAL CONDITIONS: High blood pressure PHYSICAL EXAM: VITALS: Blood pressure 110/78, pulse 94, temperature 36.8 ?C (98.2 ?F), temperature source Oral, height 162.6 cm (5' 4), weight 73.5 kg (162 lb). CONSTITUTIONAL: Well-appearing, in NAD. SKIN: No rash. No alopecia. No sclerodactyly, calcinosis, telangiectasias, digitial ulcers, or skin thickening. NAILFOLD CAPILLARY EXAM: Normal capillaries without capillary dilation, tortuosity, or dropout. EYES: No scleral icterus or conjunctivitis, PERRLA. ENT and Mouth: External ears normal. Nares normal. Mucous membranes normal. Oropharynx normal. No oral ulcers. NECK: No lymphadenopathy RESPIRATORY: Normal breath sounds, clear to auscultation. CARDIOVASCULAR: Regular rate and rhythm, no murmurs or rubs GASTROENTEROLOGY: Normal bowel sounds. Abdomen is soft and non-tender. EXTREMITIES/LYMPH: No edema bilaterally NEURO: Awake, alert and oriented, normal gait MUSCULOSKELETAL: JOINT APPEARANCE: No erythema or warmth of any upper or lower extremity joint. RANGE OF MOTION: Able to fully close fists and curl fingers bilaterally. SWOLLEN JOINTS/SYNOVITIS: No synovitis of any joint. TENDER JOINTS: None *Jan Widespread Pain Index: 14 (0-19) Symptoms Severity Scale: 8 (0-12) WPI>7 and SS Scale>5 OR WPI 3-6 and SS Scale >9 consistent with fibromyalgia LABORATORY: Component Latest Ref Rng AND Units 01/26/2017 10/29/2017 12/20/2017 WBC, [place] 3.70 - 11.00 k/uL 6.36 RBC, [place] 3.90 - 5.20 m/uL 5.57 (H) Hemoglobin, [place] 11.5 - 15.5 g/dL 17.7 (H) Platelet Cnt, [place] 150 - 400 k/uL 137 (L) Creatinine 0.58 - 0.96 mg/dL 1.01 (H) Sodium 136 - 144 mmol/L 138 Potassium 3.7 - 5.1 mmol/L 4.5 Chloride 97 - 105 mmol/L 99 CO2 22 - 30 mmol/L 26 Anion Gap 9 - 18 mmol/L 13 Calcium 8.5 - 10.2 mg/dL 9.3 eGFR- >60 eGFR-All Other Races . 57 Protein, Urine Random 0 - 20 mg/dL 9 Creatinine, Ur Random (UCRR) 20 - 300 mg/dL 57.1 Protein/Creat Ratio <0.2 0.2 (H) DNA Antibody w/Confirmation <30 IU/mL <12 C3 86 - 166 mg/dL 123 C4 13 - 46 mg/dL 17 CRP <0.9 mg/dL 0.4 WSR 0 - 20 mm/hr 2 ALT 7 - 38 U/L 17 Component Latest Ref Rng AND Units 10/25/2015 Sm Antibody <1.0 AI <0.2 COMPRESSOR MECHANIC BUS Antibody <1.0 AI <0.2 SSA Antibody <1.0 AI <0.2 SSB Antibody <1.0 AI <0.2 Centromere Ab <1.0 AI <0.2 Scleroderma Ab, IgG <1.0 AI <0.2 Yeimy 1 Antibody <1.0 AI <0.2 Ribosomal COMPRESSOR MECHANIC BUS <1.0 AI <0.2 Chromatin Antibody <1.0 AI <0.2 Protein, Urine Random 0 - 20 mg/dL <4 Creatinine, Ur Random (UCRR) 20 - 300 mg/dL 34.4 Protein/Creat Ratio <0.2 unremarkable DNA Antibody w/Confirmation <30 IU/mL <12 C3 68 - 260 mg/dL 135 C4 12 - 46 mg/dL 21 WSR 0 - 15 mm/hr 6 CRP 0.0 - 1.0 mg/dL 0.4 Component Latest Ref Rng 10/25/2015 Sm Antibody <1.0 AI <0.2 COMPRESSOR MECHANIC BUS Antibody <1.0 AI <0.2 SSA Antibody <1.0 AI <0.2 SSB Antibody <1.0 AI <0.2 Centromere Ab <1.0 AI <0.2 Scleroderma Ab, IgG <1.0 AI <0.2 Yeimy 1 Antibody <1.0 AI <0.2 Ribosomal COMPRESSOR MECHANIC BUS <1.0 AI <0.2 Chromatin Antibody <1.0 AI <0.2 Protein, Urine Random 0 - 20 mg/dL <4 Creatinine, Ur Random (UCRR) 20 - 300 mg/dL 34.4 Protein/Creat Ratio <0.2 Unable to calculate because one or more components used in calculation is outside . . . DNA Antibody w/Confirmation <30 IU/mL <12 C3 68 - 260 mg/dL 135 C4 12 - 46 mg/dL 21 WSR 0 - 15 mm/hr 6 CRP 0.0 - 1.0 mg/dL 0.4 *August unremarkable Cr, LFTs, UA Component Latest Ref Rng 05/09/2013 05/30/2013 Sm Antibody <1.0 AI <0.2 COMPRESSOR MECHANIC BUS Antibody <1.0 AI <0.2 SSA Antibody <1.0 AI <0.2 SSB Antibody <1.0 AI <0.2 Centromere Ab <1.0 AI <0.2 Scleroderma Ab, IgG <1.0 AI <0.2 Yeimy 1 Antibody <1.0 AI <0.2 Ribosomal COMPRESSOR MECHANIC BUS <1.0 AI <0.2 Chromatin Antibody <1.0 AI <0.2 Hep B Core Ab, Total NEGAT Negative Hep C Antibody IA NEGAT Negative Hep B Surface Ag NEGAT Negative Hep B Surface Ab, Qual NEGAT Positive (A) YNE NEGAT Positive (A) YEN Titer NEGAT 1:320 (A) YEN Pattern Nucleolar WSR 0 - 15 mm/hr 7 Rheumatoid Factor <20 IU/mL <7 CRP 0.0 - 1.0 mg/dL 0.6 CK 30 - 220 U/L 110 Aldolase 5.4 DNA Antibody w/Confirmation <30 IU/mL <12 C3 68 - 260 mg/dL 136 C4 12 - 46 mg/dL 22 TSH 0.400 - 5.500 uU/mL 1.290 STUDIES: *September TTE- Estimated right ventricular systolic pressure is not reported due to an insufficient tricuspid regurgitation signal. *August xray knees- Mild medial femorotibial compartment narrowing and subtle meniscal chondrocalcinosis bilaterally. *October xray pelvis- REMOTE POSTTRAUMATIC CHANGE OF THE COCCYX WITHOUT ACUTE FRACTURE. UNREMARKABLE SI JOINTS. IMPRESSION and PLAN: 1. Positive YEN 1:320: With some prior photosensitivity (slight rash only with prolonged sun exposure so not as sensitive as typically seen in lupus) and pericardial effusion which can be seen in lupus. However, explained that she still does not officially meet criteria for diagnosis. Continues to have no clinical features to suggest systemic sclerosis or other autoimmune connective tissue diseases. Nailfold capillary exam remains normal and therefore does not suggest a secondary autoimmune cause for Raynaud's. Past assessment unremarkable for APS (hx of recurrent miscarriages x3 as late as at 3 months) and celiac disease (history of GI issues). - Check labs. Mail results - Continue monitoring symptoms, reassured that lupus remains unlikely 2. Raynaud's: Likely primary, normal nailfold capillary exam in past - Advised smoking cessation again today - Given referrals to smoking cessation and to acupuncture. Advised to find out about insurance coverage, especially for acupuncture 3. Fibromyalgia: Meets criteria based on WPI/SS scale score as above. - Please refer to the fibromyalgia treatment guidelines as detailed in Jan note for further management by PCP 4. Back pain: - Continue ibuprofen prn 5. General health maintenance: - Advised to continue follow-up with PCP for routine health maintenance and malignancy screening Follow-up in 1 year. Patient was instructed to call if any questions or concerns. Thank you for allowing me to participate in the care of your patient. Bret Campos MD Referring Provider: SELF [[id number]] Allergies As of Date: 01/26/2018 Noted Allergy Reaction BEE STING 05/09/2013 7 - Swelling 12 - Shortness of Breath ALEVE (NAPROXEN) 05/09/2013 4 - Hives Date Reviewed: 01/26/2018 Reviewed by: Manju Camejo Ma - Fully Assessed Reason for Visit: Established Patient [[id number]] Primary Visit Diagnosis:Raynaud's disease without gangrene [I73.00] Other Visit Diagnoses:Positive YEN (antinuclear antibody) [R76.8] Fibromyalgia [M79.7] Tobacco use [Z72.0] Order(s):ANTI ROSALIE ID [SQENAID] Order #: [id number] FUTURE DNA AB DS + CONF BLD [SQDNA] Order #: [id number] FUTURE C3 COMPLEMENT BLD [[id number]] Order #: [id number] FUTURE C4 COMPLEMENT BLD [[id number]] Order #: [id number] FUTURE UA CHEMSTRIP ONLY [SQUA] Order #: [id number] FUTURE PROTEIN CREATININE RATIO [SQPRATIO] Order #: [id number] FUTURE SED RATE WESTERGREN [SQWSR] Order #: [id number] FUTURE C-REACTIVE PROTEIN (CRP) [SQCRP] Order #: [id number] FUTURE CONSULT TO SMOKING CESSATION [[id number]] Order #: [id number]: 1 CONSULT FOR ACUPUNCTURE [[id number]] Order #: [id number]: 1 Prescriptions as of 01/26/2018 Sig: COLCHICINE 0.6 MG TABLET take 1 tablet by mouth twice * GABAPENTIN 400 MG CAPSULE take 3 capsules by mouth at b* IBUPROFEN 800 MG TABLET take 1 tablet by mouth every * SYMBICORT 160 MCG-4.5 MCG/ACT* Inhale 2 Puffs as instructed * TIOTROPIUM BROMIDE 18 MCG CAP* Inhale 1 capsule as instructe* EPINEPHRINE 0.3 MG/0.3 ML INJ* Inject 0.3 mL intramuscularly* ALBUTEROL SULFATE HFA 90 MCG/* Inhale 2 Puffs as instructed * OMEPRAZOLE 20 MG CAPSULE,DIONE* take 1 capsule by mouth every* OXYBUTYNIN CHLORIDE ER 10 MG * take 1 tablet by mouth once d* ROPINIROLE 0.5 MG TABLET take 2 tablets by mouth at be* ATORVASTATIN 10 MG TABLET take 1 tablet by mouth daily * BUPROPION HCL SR 150 MG TABLE* Take one tab a day for 2 week* AMLODIPINE 5 MG TABLET take 1 tablet by mouth once d* BENAZEPRIL 20 MG TABLET Take 1 tablet by mouth once d* BACLOFEN 20 MG TABLET Take one tab 2-3 times a day * CHOLECALCIFEROL (VITAMIN D3) * Take 1 capsule by mouth once * ASPIRIN 81 MG TABLET,DELAYED * Take 1 tablet by mouth once d* Problem List As Of Date 01/26/2018 Noted Resolved Seasonal allergies [J30.2] Priority: B Routine gynecological examination [Z01.419] Priority: E More... Urge incontinence [N39.41] INVALID FOR* Priority: B Insomnia [G47.00] INVALID FOR* Priority: B Vitamin D deficiency [E55.9] INVALID FOR* Priority: A Smoker [F17.200] INVALID FOR* Priority: C More... Lipoma of buttock [D17.1] INVALID FOR* Priority: C More... More... Fibromyalgia [M79.7] INVALID FOR* Priority: B Essential hypertension [I10] INVALID FOR* Priority: A Chronic obstructive pulmonary disease (HCC) [J4*INVALID FOR* Priority: A More... Mixed hyperlipidemia [E78.2] INVALID FOR* Priority: A Gastroesophageal reflux disease without esophag*INVALID FOR* Priority: A Low back pain [M54.5] INVALID FOR* Priority: M More... Arthritis of both knees [M17.0] INVALID FOR* Priority: M More... Pericardial effusion [I31.3] INVALID FOR* Priority: A More... Carpal tunnel syndrome of left wrist [G56.02] INVALID FOR* Priority: M More... Obesity (BMI 35.0-39.9 without comorbidity) [E6*INVALID FOR*01/12/2017 Obesity (BMI 30.0-34.9) [E66.9] INVALID FOR* Priority: B More... Current use of proton pump inhibitor [Z79.899] INVALID FOR* More... Lumbar canal stenosis [M48.061] INVALID FOR* Priority: M More... Lumbar foraminal stenosis [M99.83] INVALID FOR* Priority: M Lumbar facet arthropathy (HCC) [M46.96] INVALID FOR* Priority: M CHF (congestive heart failure) (HCC) [I50.9] INVALID FOR* Priority: A More... YEN positive [R76.8] INVALID FOR* Priority: B More... Medicare annual wellness visit, subsequent [Z00*INVALID FOR* Priority: E More... Well adult exam [Z00.00] INVALID FOR* Priority: E More... Screening for colon cancer [Z12.11] INVALID FOR* Encounter for screening mammogram for breast ca*INVALID FOR* Elevated hemoglobin (HCC) [D58.2] INVALID FOR* Secondary polycythemia [D75.1] INVALID FOR* Priority: B More... Disposition: Return in about 1 year (around 01/26/2019). Follow-up and Disposition History Recorded Encounter Status:Closed by BRET CAMPOS MD on 01/26/18 PROGRESS Observed: 01/26/2018 Status: COMPLETED Source: [facility] 1:37 PM [facility] REPOSITORY HNO ID: [id number] Author: Bret Albert) Michelle Service: (none) Author Type: Physician Type: Progress Notes Filed: 01/26/2018 2:04 PM Note Text: On 01/26/18, I had the pleasure of seeing Cruz Jacobo at the [facility] for follow-up of positive EYN 1:320 nucleolar. HPI: To review, Cruz Jacobo is a 57 year old female - In May, seen by Dr. Posey in [facility] rheumatology for positive YEN 1:320 nucleolar pattern and Raynaud's. Was thought to not have lupus or another autoimmune CTD given lack of other clinical features including remaining lab results. Diagnosed with mechanical back pain. Advised on smoking cessation and to return to clinic to monitor for new symptoms or findings. - In Jan, reported that neurontin started by PCP helped joint and muscle pain creating improvement with mobility. No evidence for underlying autoimmune disease found per hx, exam or labs. - In Mar, assessment unchanged - September TTE with moderate pericardial effusion. Unchanged, to monitor per cardiology - In September, reported pain of elbows, knees, neck, back and shoulders. No symptoms or findings to suggest SLE or other CTD - In Feb, was on a high dose prednisone course for COPD flare/infection-did not help joint pain at all. - In Apr, reported feeling well. Had steroid injection in back which helped back pain. - In Jan, reported unchanged baseline longstanding back pain. - Today, reports upset stomach with eating anything. Continues to have baseline shoulder/back pain - No rash, mouth sores or photosensitivity - Stable Raynaud's, remains without digital ulcers - Continues to take ibuprofen 800mg, 1-2 tabs/day PAST MEDICAL HISTORY Diagnosis Date - YEN positive 12/06/2017 Seeing Rheum - Cancer (HCC) - CHF (congestive heart failure) (HCC) 12/06/2017 - COPD (chronic obstructive pulmonary disease) (HCC) - Fibromyalgia 03/09/2014 - HTN (hypertension) - Hyperlipidemia 01/30/2014 - Insomnia 09/20/2013 - Lipoma of buttock 01/25/2014 Left glut - Low back pain 05/09/2013 - Lumbar canal stenosis 12/06/2017 Moderate at L2-L3 - Lumbar facet arthropathy (HCC) 12/06/2017 - Lumbar foraminal stenosis 12/06/2017 - 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 Ruiz, on colchicine - Routine gynecological examination Dr. Arreola - Seasonal allergies - Smoker 01/25/2014 - Substance abuse (HCC) - Urge incontinence 06/22/2013 - Vitamin D deficiency 01/25/2014 HL Anxiety PAST SURGICAL HISTORY Procedure Laterality Date - FECAL OCCULT BLOOD TEST 12/09/2017 negative - STRESS TEST 08/28/2014 NL - HERLINDA W/WO REMOVAL TUBE OVARY HERLINDA-BSO - TONSILLECTOMY HX - [facility] DELIVERY SCHEDULING ORDER 2002 Review of patient's allergies indicates: Aleve (Naproxen) Hives Bee Sting Swelling, Shortness of Breath MEDICATIONS: Current Outpatient Prescriptions: colchicine 0.6 mg tablet take 1 tablet by mouth twice a day gabapentin (NEURONTIN) 400 mg capsule take 3 capsules by mouth at bedtime ibuprofen (MOTRIN) 800 mg tablet take 1 tablet by mouth every 8 hours with food if needed for pain SYMBICORT 160-4.5 mcg/actuation inhaler Inhale 2 Puffs as instructed twice daily. tiotropium (SPIRIVA WITH HANDIHALER) 18 mcg inhalation capsule Inhale 1 capsule as instructed once daily. USE WITH HANDIHALER. EPINEPHrine (EPIPEN) 0.3 mg/0.3 mL auto-injector Inject 0.3 mL intramuscularly as needed. albuterol HFA (PROAIR HFA) 90 mcg/actuation inhaler Inhale 2 Puffs as instructed every 6 hours as needed. omeprazole (PRILOSEC) 20 mg capsule take 1 capsule by mouth every morning 1/2 HOUR BEFORE BREAKFAST oxybutynin ER (DITROPAN XL) 10 mg 24 hr tablet take 1 tablet by mouth once daily ---TO REPLACE DETROL rOPINIRole (REQUIP) 0.5 mg tablet take 2 tablets by mouth at bedtime atorvastatin (LIPITOR) 10 mg tablet take 1 tablet by mouth daily at bedtime buPROPion SR (ZYBAN SR; WELLBUTRIN SR) 150 mg 12 hr tablet Take one tab a day for 2 weeks then go to taking one twice a day. amLODIPine (NORVASC) 5 mg tablet take 1 tablet by mouth once daily benazepril (LOTENSIN) 20 mg tablet Take 1 tablet by mouth once daily. baclofen (LIORESAL) 20 mg tablet Take one tab 2-3 times a day for muscle spasms cholecalciferol, vitamin D3, 4,000 unit cap Take 1 capsule by mouth once daily. aspirin, enteric coated (ADULT LOW DOSE ASPIRIN) 81 mg EC tablet Take 1 tablet by mouth once daily. No current facility-administered medications for this visit. FAMILY HISTORY Problem Relation Age of Onset - Coronary Artery Disease Mother - Diabetes Mother - Headache Mother - Hypertension Mother - COPD Mother Multiple mebers of maternal family. - Diabetes Brother - Stroke Father - Breast Cancer Sister - Cancer Sister Lung. Uncle. no known autoimmune disease per patient SOCIAL HISTORY: Lives in [place]. Has a daughter Tobacco Use: 2 packs/day Alcohol Use: No Tattoos: Yes REVIEW OF SYSTEMS: reviewed 04/10 systems, as above and as below: CONSTITUTIONAL: Fatigue, Unintentional weight loss EAR, NOSE, MOUTH, THROAT: Hearing loss, Dry mouth RESPIRATORY: Shortness of breath, Chronic cough GASTROINTESTINAL: Heartburn, Nausea, Abdominal pain MUSCULOSKELETAL: Joint pain, Morning stiffness in joints, Muscle weakness, Back pain SKIN: Color changes of hands or feet in the cold, Hair loss, Nail changes NEUROLOGIC: Headaches, Dizziness, Numbness or tingling ALLERGIC/ IMMUNOLOGIC: Allergies (other than medications) KNOWN MEDICAL CONDITIONS: High blood pressure PHYSICAL EXAM: VITALS: Blood pressure 110/78, pulse 94, temperature 36.8 ?C (98.2 ?F), temperature source Oral, height 162.6 cm (5' 4), weight 73.5 kg (162 lb). CONSTITUTIONAL: Well-appearing, in NAD. SKIN: No rash. No alopecia. No sclerodactyly, calcinosis, telangiectasias, digitial ulcers, or skin thickening. NAILFOLD CAPILLARY EXAM: Normal capillaries without capillary dilation, tortuosity, or dropout. EYES: No scleral icterus or conjunctivitis, PERRLA. ENT and Mouth: External ears normal. Nares normal. Mucous membranes normal. Oropharynx normal. No oral ulcers. NECK: No lymphadenopathy RESPIRATORY: Normal breath sounds, clear to auscultation. CARDIOVASCULAR: Regular rate and rhythm, no murmurs or rubs GASTROENTEROLOGY: Normal bowel sounds. Abdomen is soft and non-tender. EXTREMITIES/LYMPH: No edema bilaterally NEURO: Awake, alert and oriented, normal gait MUSCULOSKELETAL: JOINT APPEARANCE: No erythema or warmth of any upper or lower extremity joint. RANGE OF MOTION: Able to fully close fists and curl fingers bilaterally. SWOLLEN JOINTS/SYNOVITIS: No synovitis of any joint. TENDER JOINTS: None *Jan Widespread Pain Index: 14 (0-19) Symptoms Severity Scale: 8 (0-12) WPI>7 and SS Scale>5 OR WPI 3-6 and SS Scale >9 consistent with fibromyalgia LABORATORY: Component Latest Ref Rng AND Units 01/26/2017 10/29/2017 12/20/2017 WBC, [place] 3.70 - 11.00 k/uL 6.36 RBC, [place] 3.90 - 5.20 m/uL 5.57 (H) Hemoglobin, [place] 11.5 - 15.5 g/dL 17.7 (H) Platelet Cnt, [place] 150 - 400 k/uL 137 (L) Creatinine 0.58 - 0.96 mg/dL 1.01 (H) Sodium 136 - 144 mmol/L 138 Potassium 3.7 - 5.1 mmol/L 4.5 Chloride 97 - 105 mmol/L 99 CO2 22 - 30 mmol/L 26 Anion Gap 9 - 18 mmol/L 13 Calcium 8.5 - 10.2 mg/dL 9.3 eGFR- >60 eGFR-All Other Races . 57 Protein, Urine Random 0 - 20 mg/dL 9 Creatinine, Ur Random (UCRR) 20 - 300 mg/dL 57.1 Protein/Creat Ratio <0.2 0.2 (H) DNA Antibody w/Confirmation <30 IU/mL <12 C3 86 - 166 mg/dL 123 C4 13 - 46 mg/dL 17 CRP <0.9 mg/dL 0.4 WSR 0 - 20 mm/hr 2 ALT 7 - 38 U/L 17 Component Latest Ref Rng AND Units 10/25/2015 Sm Antibody <1.0 AI <0.2 COMPRESSOR MECHANIC BUS Antibody <1.0 AI <0.2 SSA Antibody <1.0 AI <0.2 SSB Antibody <1.0 AI <0.2 Centromere Ab <1.0 AI <0.2 Scleroderma Ab, IgG <1.0 AI <0.2 Yeimy 1 Antibody <1.0 AI <0.2 Ribosomal COMPRESSOR MECHANIC BUS <1.0 AI <0.2 Chromatin Antibody <1.0 AI <0.2 Protein, Urine Random 0 - 20 mg/dL <4 Creatinine, Ur Random (UCRR) 20 - 300 mg/dL 34.4 Protein/Creat Ratio <0.2 unremarkable DNA Antibody w/Confirmation <30 IU/mL <12 C3 68 - 260 mg/dL 135 C4 12 - 46 mg/dL 21 WSR 0 - 15 mm/hr 6 CRP 0.0 - 1.0 mg/dL 0.4 Component Latest Ref Rn 10/25/2015 Sm Antibody <1.0 AI <0.2 COMPRESSOR MECHANIC BUS Antibody <1.0 AI <0.2 SSA Antibody <1.0 AI <0.2 SSB Antibody <1.0 AI <0.2 Centromere Ab <1.0 AI <0.2 Scleroderma Ab, IgG <1.0 AI <0.2 Yeimy 1 Antibody <1.0 AI <0.2 Ribosomal COMPRESSOR MECHANIC BUS <1.0 AI <0.2 Chromatin Antibody <1.0 AI <0.2 Protein, Urine Random 0 - 20 mg/dL <4 Creatinine, Ur Random (UCRR) 20 - 300 mg/dL 34.4 Protein/Creat Ratio <0.2 Unable to calculate because one or more components used in calculation is outside . . . DNA Antibody w/Confirmation <30 IU/mL <12 C3 68 - 260 mg/dL 135 C4 12 - 46 mg/dL 21 WSR 0 - 15 mm/hr 6 CRP 0.0 - 1.0 mg/dL 0.4 *August unremarkable Cr, LFTs, UA Component Latest Ref Rn 05/09/2013 05/30/2013 Sm Antibody <1.0 AI <0.2 COMPRESSOR MECHANIC BUS Antibody <1.0 AI <0.2 SSA Antibody <1.0 AI <0.2 SSB Antibody <1.0 AI <0.2 Centromere Ab <1.0 AI <0.2 Scleroderma Ab, IgG <1.0 AI <0.2 Yeimy 1 Antibody <1.0 AI <0.2 Ribosomal COMPRESSOR MECHANIC BUS <1.0 AI <0.2 Chromatin Antibody <1.0 AI <0.2 Hep B Core Ab, Total NEGAT Negative Hep C Antibody IA NEGAT Negative Hep B Surface Ag NEGAT Negative Hep B Surface Ab, Qual NEGAT Positive (A) YEN NEGAT Positive (A) YEN Titer NEGAT 1:320 (A) YEN Pattern Nucleolar WSR 0 - 15 mm/hr 7 Rheumatoid Factor <20 IU/mL <7 CRP 0.0 - 1.0 mg/dL 0.6 CK 30 - 220 U/L 110 Aldolase 5.4 DNA Antibody w/Confirmation <30 IU/mL <12 C3 68 - 260 mg/dL 136 C4 12 - 46 mg/dL 22 TSH 0.400 - 5.500 uU/mL 1.290 STUDIES: *September TTE- Estimated right ventricular systolic pressure is not reported due to an insufficient tricuspid regurgitation signal. *August xray knees- Mild medial femorotibial compartment narrowing and subtle meniscal chondrocalcinosis bilaterally. *October xray pelvis- REMOTE POSTTRAUMATIC CHANGE OF THE COCCYX WITHOUT ACUTE FRACTURE. UNREMARKABLE SI JOINTS. IMPRESSION and PLAN: 1. Positive YEN 1:320: With some prior photosensitivity (slight rash only with prolonged sun exposure so not as sensitive as typically seen in lupus) and pericardial effusion which can be seen in lupus. However, explained that she still does not officially meet criteria for diagnosis. Continues to have no clinical features to suggest systemic sclerosis or other autoimmune connective tissue diseases. Nailfold capillary exam remains normal and therefore does not suggest a secondary autoimmune cause for Raynaud's. Past assessment unremarkable for APS (hx of recurrent miscarriages x3 as late as at 3 months) and celiac disease (history of GI issues). - Check labs. Mail results - Continue monitoring symptoms, reassured that lupus remains unlikely 2. Raynaud's: Likely primary, normal nailfold capillary exam in past - Advised smoking cessation again today - Given referrals to smoking cessation and to acupuncture. Advised to find out about insurance coverage, especially for acupuncture 3. Fibromyalgia: Meets criteria based on WPI/SS scale score as above. - Please refer to the fibromyalgia treatment guidelines as detailed in Jan note for further management by PCP 4. Back pain: - Continue ibuprofen prn 5. General health maintenance: - Advised to continue follow-up with PCP for routine health maintenance and malignancy screening Follow-up in 1 year. Patient was instructed to call if any questions or concerns. Thank you for allowing me to participate in the care of your patient. Bret Campos MD OBSOLETE Observed: 01/25/2018 Status: COMPLETED Source: [facility] 12:00 AM [facility] OTHER CAMPUS REPOSITORY Refill (AGCARDWST) CRUZ JACOBO ([id number]) 1960 F Date Time Provider Department 01/25/18 EUGENIO RUIZ AGCARDWST During your visit today, we recorded the following information about you: Allergies As of Date: 01/25/2018 Noted Allergy Reaction BEE STING 05/09/2013 7 - Swelling 12 - Shortness of Breath ALEVE (NAPROXEN) 05/09/2013 4 - Hives Date Reviewed: 12/20/2017 Reviewed by: Italia Nielsen (Heat Plant Specialist) FLORENCIA Mcnamara - Fully Assessed Reason for Visit: Refill Request [94] Order(s):colchicine 0.6 mg tablettake 1 tablet by mouth twice a dayDisp: 60 tabletRfl: 11 Prescriptions as of 01/25/2018 Sig: COLCHICINE 0.6 MG TABLET take 1 tablet by mouth twice * GABAPENTIN 400 MG CAPSULE take 3 capsules by mouth at b* IBUPROFEN 800 MG TABLET take 1 tablet by mouth every * SYMBICORT 160 MCG-4.5 MCG/ACT* Inhale 2 Puffs as instructed * TIOTROPIUM BROMIDE 18 MCG CAP* Inhale 1 capsule as instructe* EPINEPHRINE 0.3 MG/0.3 ML INJ* Inject 0.3 mL intramuscularly* ALBUTEROL SULFATE HFA 90 MCG/* Inhale 2 Puffs as instructed * OMEPRAZOLE 20 MG CAPSULE,DIONE* take 1 capsule by mouth every* OXYBUTYNIN CHLORIDE ER 10 MG * take 1 tablet by mouth once d* ROPINIROLE 0.5 MG TABLET take 2 tablets by mouth at be* ATORVASTATIN 10 MG TABLET take 1 tablet by mouth daily * BUPROPION HCL SR 150 MG TABLE* Take one tab a day for 2 week* AMLODIPINE 5 MG TABLET take 1 tablet by mouth once d* BENAZEPRIL 20 MG TABLET Take 1 tablet by mouth once d* BACLOFEN 20 MG TABLET Take one tab 2-3 times a day * CHOLECALCIFEROL (VITAMIN D3) * Take 1 capsule by mouth once * ASPIRIN 81 MG TABLET,DELAYED * Take 1 tablet by mouth once d* Problem List As Of Date 01/25/2018 Noted Resolved Seasonal allergies [J30.2] Priority: B Routine gynecological examination [Z01.419] Priority: E More... Urge incontinence [N39.41] INVALID FOR* Priority: B Insomnia [G47.00] INVALID FOR* Priority: B Vitamin D deficiency [E55.9] INVALID FOR* Priority: A Smoker [F17.200] INVALID FOR* Priority: C More... Lipoma of buttock [D17.1] INVALID FOR* Priority: C More... More... Fibromyalgia [M79.7] INVALID FOR* Priority: B Essential hypertension [I10] INVALID FOR* Priority: A Chronic obstructive pulmonary disease (HCC) [J4*INVALID FOR* Priority: A More... Mixed hyperlipidemia [E78.2] INVALID FOR* Priority: A Gastroesophageal reflux disease without esophag*INVALID FOR* Priority: A Low back pain [M54.5] INVALID FOR* Priority: M More... Arthritis of both knees [M17.0] INVALID FOR* Priority: M More... Pericardial effusion [I31.3] INVALID FOR* Priority: A More... Carpal tunnel syndrome of left wrist [G56.02] INVALID FOR* Priority: M More... Obesity (BMI 35.0-39.9 without comorbidity) [E6*INVALID FOR*01/12/2017 Obesity (BMI 30.0-34.9) [E66.9] INVALID FOR* Priority: B More... Current use of proton pump inhibitor [Z79.899] INVALID FOR* More... Lumbar canal stenosis [M48.061] INVALID FOR* Priority: M More... Lumbar foraminal stenosis [M99.83] INVALID FOR* Priority: M Lumbar facet arthropathy (HCC) [M46.96] INVALID FOR* Priority: M CHF (congestive heart failure) (HCC) [I50.9] INVALID FOR* Priority: A More... YEN positive [R76.8] INVALID FOR* Priority: B More... Medicare annual wellness visit, subsequent [Z00*INVALID FOR* Priority: E More... Well adult exam [Z00.00] INVALID FOR* Priority: E More... Screening for colon cancer [Z12.11] INVALID FOR* Encounter for screening mammogram for breast ca*INVALID FOR* Elevated hemoglobin (HCC) [D58.2] INVALID FOR* Secondary polycythemia [D75.1] INVALID FOR* Priority: B More... Prescriptions ordered this encounter Disp Refills Start End COLCHICINE 0.6 MG TABLET 60 t* 11 01/25/2018 Sig: take 1 tablet by mouth twice a day Medications Discontinued During This Encounter colchicine 0.6 mg tablet 60 t* 3 10/08/2017 01/25/2018 Route: ORAL Sig: Take 1 tablet by mouth twice daily. Disc: Reason for discontinue is not on file. Encounter Status:Closed by KAMERON FERRER RN on 01/26/18 PBNP Collected: 01/11/2018 Status: F Source: [place] 4:07 AM [facility] REPOSITORY TYPE CODE TESTS RESULT OUT OF REFERENCE UNITS RANGE LAB PBNP(LOINC) 5.0-300.0 pg/mL N-Terminal 79.1 proBNP Result Comment: In the presence of acute dyspnea, CHF likely if: Age <50 years: >450 pg/mL Age 50-75 years: >900 pg/mL Age >75 years: >1800 pg/mL Performed By: #### PBNP #### Ruby [address] [address] XR CHEST 1 VIEW Observed: 01/11/2018 Status: F Source: [place] 4:01 AM [facility] REPOSITORY ORIGINAL Clinical history: Chest pain COMPARISON: None The heart size is normal. The lungs are well aerated. There is no acute infiltrate or pulmonary edema. No pleural fluid or pneumothorax is present. Skeletal structures are unremarkable. IMPRESSION: No acute chest process. Interpreted By: Abel Hemphill MD Preliminary Report By: Abel Hemphill MD Electronically Signed By: Abel Hemphill MD Dictated Date: 01/11/2018 4:06:23 AM Prelim Date: 01/11/2018 4:06:23 AM Sign Date: 01/11/2018 4:07:31 AM TROP Collected: 01/11/2018 Status: F Source: [place] 3:46 AM [facility] REPOSITORY TYPE CODE TESTS RESULT OUT OF REFERENCE UNITS RANGE LAB TROP(LOINC) 0.00-0.30 ng/mL Troponin <0.30 Result Comment: Below measuring range >=0.30 Consistent with cardiac damage, increased clinical risk and possibility of myocardial infarction. Serial measurements, clinical history, appropriate symptoms and/or ECG changes may help assess possibility of PA. *Other non-acute coronary syndrome conditions such as CHF, myocarditis, pulmonary emboli, sepsis and cardiac surgery could result in myocardial damage and increased troponin levels. Performed By: #### TROP, CBC, ADIFF, ANEU, GFR, LIP, CMP #### [address] [place], [place] [address] CBC Collected: 01/11/2018 Status: F Source: [facility] 3:46 AM [facility] REPOSITORY TYPE CODE TESTS RESULT OUT OF REFERENCE UNITS RANGE LAB WBC(LOINC) 4.60-10.80 10 3/mcL WBC 6.30 LAB RBCCT(LOINC 4.20-5.40 10 6/mcL ) High RBC 5.47 LAB HGB(LOINC) 12.0-16.0 G/dL High Hgb 17.4 LAB HCT(LOINC) 37.0-47.0 % High Hct 51.0 LAB MCV(LOINC) 80.0-94.0 fL MCV 93.2 LAB MCH(LOINC) 27.0-31.2 pg High MCH 31.8 LAB MCHC(LOINC) 33.0-37.0 G/dL MCHC 34.1 LAB RDW(LOINC) 11.5-14.5 % High RDW 14.6 LAB PLT(LOINC) 130-400 10 3/mcL Platelet 146 LAB MPV(LOINC) 7.4-10.4 fL MPV 10.1 Performed By: #### TROP, CBC, ADIFF, ANEU, GFR, LIP, CMP #### [address] [place], [place] [address] .AUTO DIFF Collected: 01/11/2018 Status: F Source: [place] [employer] 3:46 AM [facility] REPOSITORY TYPE CODE TESTS RESULT OUT OF REFERENCE UNITS RANGE LAB HONEY(LOINC) 37.0-80.0 % Neutrophil % 67.0 LAB LYM(LOINC) 10.0-50.0 % Lymphocyte % 21.5 LAB MON(LOINC) 1.7-13.0 % Monocyte % 9.3 LAB EO(LOINC) 0.0-7.0 % Eosinophil % 1.6 LAB BAS(LOINC) 0.0-2.5 % Basophil % 0.6 LAB ABLYM(LOIN 0.77-3.85 10 3/mcL C) Lymphocyte, 1.40 Absolute LAB GOGO(LOINC 0.15-1.00 10 3/mcL ) Monocyte, 0.60 Absolute LAB AEOS(LOINC 0.00-0.40 10 3/mcL ) Eosinophil, 0.10 Absolute LAB ABAS(LOINC 0.00-0.19 10 3/mcL ) Basophil, 0.00 Absolute Performed By: #### TROP, CBC, ADIFF, ANEU, GFR, LIP, CMP #### [address] [address] .NEUABS Collected: 01/11/2018 Status: F Source: [facility] 3:46 AM [facility] REPOSITORY TYPE CODE TESTS RESULT OUT OF REFERENCE UNITS RANGE LAB ANEU(LOINC) 2.85-6.16 10 3/mcL Neutrophil, 4.20 Absolute Performed By: #### TROP, CBC, ADIFF, ANEU, GFR, LIP, CMP #### [address] [address] .GFR Collected: 01/11/2018 Status: F Source: [facility] 3:46 AM [facility] REPOSITORY TYPE CODE TESTS RESULT OUT OF REFERENCE UNITS RANGE LAB GFRAA(LOINC ml/min/1.73 ) sqm GFR >60 [place] Result Comment: GFR Population mean for , Non- Americans Ages 20-29 = 116 mL/min/1.73 sq.m. Ages 30-39 = 107 mL/min/1.73 sq.m. Ages 40-49 = 99 mL/min/1.73 sq.m. Ages 50-59 = 93 mL/min/1.73 sq.m. Ages 60-69 = 85 mL/min/1.73 sq.m. Ages 70+ = 75 mL/min/1.73 sq.m. Chronic Kidney Disease: Less than 60 mL/min/1.73 square meters End Stage Renal Disease: Less than 15 mL/min/1.73 square meters LAB GFRNO(LOINC) ml/min/1.73sqm GFR Non- 51 Result Comment: GFR Population mean for , Non- Americans Ages 20-29 = 116 mL/min/1.73 sq.m. Ages 30-39 = 107 mL/min/1.73 sq.m. Ages 40-49 = 99 mL/min/1.73 sq.m. Ages 50-59 = 93 mL/min/1.73 sq.m. Ages 60-69 = 85 mL/min/1.73 sq.m. Ages 70+ = 75 mL/min/1.73 sq.m. Chronic Kidney Disease: Less than 60 mL/min/1.73 square meters End Stage Renal Disease: Less than 15 mL/min/1.73 square meters Performed By: #### TROP, CBC, ADIFF, ANEU, GFR, LIP, CMP #### [address] [place], [place] [address] LIP Collected: 01/11/2018 Status: F Source: [facility] 3:46 AM [facility] REPOSITORY TYPE CODE TESTS RESULT OUT OF REFERENCE UNITS RANGE LAB LIP(LOINC) 8-78 IU/L Lipase Level 25 Performed By: #### TROP, CBC, ADIFF, ANEU, GFR, LIP, CMP #### [address] [place], [place] [address] CMP Collected: 01/11/2018 Status: F Source: [place] 3:46 AM [facility] REPOSITORY TYPE CODE TESTS RESULT OUT OF REFERENCE UNITS RANGE LAB GLU(LOINC) 70-105 mg/dL Glucose Level 91 LAB NA(LOINC) 136-146 mEq/L Sodium Level 141 LAB K(LOINC) 3.5-5.1 mEq/L Potassium Level 4.2 LAB CL(LOINC) 98-107 mEq/L Chloride 105 LAB CO2(LOINC) 22-29 mEq/L CO2 28 LAB EBAL(LOINC mEq/L ) Electrolyte Balance 8.0 LAB BUN(LOINC) 7.0-18.0 mg/dL BUN 15.8 LAB CRE(LOINC) 0.6-1.2 mg/dL Creatinine Lvl (s) 1.1 LAB BC(LOINC) 7-27 ratio BUN/Creatinine 14 Ratio LAB CA(LOINC) 8.4-10.2 mg/dL Calcium Lvl 9.0 LAB PROT(LOINC 6.0-8.3 G/dL ) Total Protein 6.4 LAB ALB(LOINC) 3.5-5.0 G/dL Albumin Level 4.1 LAB GLB(LOINC) G/dL Globulin 2.3 LAB AG(LOINC) 1.1-2.5 ratio A/G Ratio 1.8 LAB BILT(LOINC 0.2-1.0 mg/dL ) Bili Total 0.3 LAB AP(LOINC) 40-135 IU/L Alk Phos 94 LAB AST(LOINC) 10-40 IU/L AST/SGOT 17 LAB ALT(LOINC) 10-35 IU/L ALT/SGPT 22 Performed By: #### TROP, CBC, ADIFF, ANEU, GFR, LIP, CMP #### [place] [address] [place], [place] [address] SCREENING MAMM (CAD), Observed: 12/30/2017 Status: F Source: [place] 10:40 AM [facility] Imaging Services [address] [place] [id number] SCREENING MAMM (CAD), BILAT MR#: [id number] Acct: [id number] Name: CRUZ JACOBO Rep #: [id number] : 1960 F 57 From: David Bailon MD PCP: Tex Miller MD Status: REG CLI Study: SCREENING MAMM (CAD), BILAT Date of Exam: 12/30/17 Exam# [id number] Ordering Dr: Tex Miller MD MAMMOGRAPHY - BILATERAL SCREENING REASON FOR EXAM: Female, 57 years old. Routine annual screening examination. PERTINENT HISTORY: Sister with breast cancer. TECHNIQUE: Digital bilateral breast norman (3D mammographic acquisition) in the CC and MLO projections. 2-D mediolateral oblique (MLO) and craniocaudad (CC) views of both breasts were obtained. CAD: Full Field Digital Mammography with Computer Added Detection was performed. COMPARISON: Comparison is made with prior study dated October 09, 2016 and October 02, 2015. FINDINGS: Breast Composition: The breasts are almost entirely fatty. There are no dominant masses or suspicious calcifications. No other significant abnormalities are identified. There has been no significant change since the prior study. BI/SCREENING MAMM (CAD), BILAT IMPRESSION: Stable bilateral screening mammogram. Yearly follow-up mammogram recommended. (A) ASSESSMENT CATEGORY: BIRADS Category 1: Negative. A letter regarding these results will be sent to the patient by the facility within 30 days. Approximately 10% of breast cancers are not detected by mammography. A normal mammogram should not delay biopsy of a clinically suspicious abnormality. [id number] Electronically Signed: David Bailon MD at 12:09 EDT Tel [phone], Service support , CC: Tex Miller MD Tobacco Stemmer: Signed CNOVSP Observed: 12/20/2017 Status: COMPLETED Source: [place] 2:00 PM [facility] REPOSITORY Visit (SP) Office (GABRIELLA) CRUZ JACOBO ([id number]) 1960 F Date Time Provider Department 12/20/17 2:00 PM PRIYA COLLINS During your visit today, we recorded the following information about you: Temperature Pulse Blood pressure Weight 97 degrees 99/minute 132/79 77.3 kg Height 1.626 m Priya Collins MD 12/21/2017 9:34 AM Signed Hematology and Medical Oncology PATIENT NAME: Cruz Jacobo. CLINIC NO: [id number]. ATTENDING PHYSICIAN: Priya Collins MD. DATE OF SERVICE:12/20/2017. DIAGNOSIS: Secondary polycythemia Consultation requested by Dr. Miller for an opinion regarding Polycythemia. My final recommendations will be communicated back to the requesting physician by way of shared Medical record or letter to requesting physician via US mail. PERFORMANCE STATUS:80% HPI: 57-year-old extensive smoker (2ppd x 40 years) with severe COPD, pulmonary hypertension and mild obesity who presented with polycythemia. She had polycythemia for couple years, but more recently her hemoglobin and hematocrit have increased. She saw pulmonary medicine recently AND her regimen for COPD was changed because of worsening symptoms. She also has anorexia progressive weight loss in the last 6 months because of shortness of breath. Patient has no headaches, chest pain, visual problem or hyperviscosity symptoms. patient has try to stop smoking several times and she is on Zyban. She was previously on nicotine patch and didn't make her heal well and she stopped. She also has tried Chantix in the past for smoking cessation. Patient has no fever, chills or night sweats. She has been recommended for sleep study in the past and possible snoring at night. she denies early satiety, or pruritus. MEDICATIONS: Current Outpatient Prescriptions: ibuprofen (MOTRIN) 800 mg tablet take 1 tablet by mouth every 8 hours with food if needed for pain SYMBICORT 160-4.5 mcg/actuation inhaler Inhale 2 Puffs as instructed twice daily. tiotropium (SPIRIVA WITH HANDIHALER) 18 mcg inhalation capsule Inhale 1 capsule as instructed once daily. USE WITH HANDIHALER. EPINEPHrine (EPIPEN) 0.3 mg/0.3 mL auto-injector Inject 0.3 mL intramuscularly as needed. albuterol HFA (PROAIR HFA) 90 mcg/actuation inhaler Inhale 2 Puffs as instructed every 6 hours as needed. omeprazole (PRILOSEC) 20 mg capsule take 1 capsule by mouth every morning 1/2 HOUR BEFORE BREAKFAST oxybutynin ER (DITROPAN XL) 10 mg 24 hr tablet take 1 tablet by mouth once daily ---TO REPLACE DETROL gabapentin (NEURONTIN) 400 mg capsule take 3 capsules by mouth daily at bedtime rOPINIRole (REQUIP) 0.5 mg tablet take 2 tablets by mouth at bedtime atorvastatin (LIPITOR) 10 mg tablet take 1 tablet by mouth daily at bedtime colchicine 0.6 mg tablet Take 1 tablet by mouth twice daily. buPROPion SR (ZYBAN SR; WELLBUTRIN SR) 150 mg 12 hr tablet Take one tab a day for 2 weeks then go to taking one twice a day. amLODIPine (NORVASC) 5 mg tablet take 1 tablet by mouth once daily benazepril (LOTENSIN) 20 mg tablet Take 1 tablet by mouth once daily. baclofen (LIORESAL) 20 mg tablet Take one tab 2-3 times a day for muscle spasms cholecalciferol, vitamin D3, 4,000 unit cap Take 1 capsule by mouth once daily. aspirin, enteric coated (ADULT LOW DOSE ASPIRIN) 81 mg EC tablet Take 1 tablet by mouth once daily. No current facility-administered medications for this visit. . ALLERGIES: ALLERGIES Allergen Reactions - Bee Sting Swelling, Shortness of Breath - Aleve [Naproxen] Hives . PAST MEDICAL HISTORY: PAST MEDICAL HISTORY Diagnosis Date - YEN positive 12/06/2017 Seeing Rheum - Cancer ([facility]) - CHF (congestive heart failure) ([facility]) 12/06/2017 - COPD (chronic obstructive pulmonary disease) ([facility]) - Fibromyalgia 03/09/2014 - HTN (hypertension) - Hyperlipidemia 01/30/2014 - Insomnia 09/20/2013 - Lipoma of buttock 01/25/2014 Left glut - Low back pain 05/09/2013 - Lumbar canal stenosis 12/06/2017 Moderate at L2-L3 - Lumbar facet arthropathy ([facility]) 12/06/2017 - Lumbar foraminal stenosis 12/06/2017 - 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 Ruiz, on colchicine - Routine gynecological examination Dr. Arreola - Seasonal allergies - Smoker 01/25/2014 - Substance abuse - Urge incontinence 06/22/2013 - Vitamin D deficiency 01/25/2014 . PAST SURGICAL HISTORY: PAST SURGICAL HISTORY Procedure Laterality Date - FECAL OCCULT BLOOD TEST 12/09/2017 negative - STRESS TEST 08/28/2014 NL - HERLINDA W/WO REMOVAL TUBE OVARY HERLINDA-BSO - TONSILLECTOMY HX - [facility] DELIVERY SCHEDULING ORDER 2002 . FAMILY HISTORY: FAMILY HISTORY Problem Relation Age of Onset - Coronary Artery Disease Mother - Diabetes Mother - Headache Mother - Hypertension Mother - COPD Mother Multiple mebers of maternal family. - Diabetes Brother - Stroke Father - Breast Cancer Sister - Cancer Sister Lung. Uncle. . SOCIAL HISTORY:Social History Marital status: Spouse name: Years of education: Number of children: Occupational History Occupation Employer Comment [employer], last done 2011 Social History Main Topics Smoking status: Current Every Day Smoker Packs/day: 2.00 Years: 37.00 Start date: 1976 Smokeless tobacco: Never Used Alcohol use: No Comment: None since 2011, TO 02/2016. Drug use: No Social History Narrative Tried Chantix and Nicotine patch. First morning cigarette right after going to the bathroom. Hardest cigarette to give up- morning cigarette. Once get coffee in the morning, it is one after another. Quit during hospitalization with delivery of baby for 1 week. Smoked during . .REVIEW OF SYSTEMS: CONSTITUTIONAL: No fevers, chills, nightsweats, + unintended weight loss HEENT: Denies frequent or severe heaches, nasal congestion/sinus symptoms, problematic allergy problems. EYES: No diplopia or blurry vision. CARDIOVASCULAR: No chest pain, + dyspnea, palpitations, orthopnea, PND, ankle edema. PULM: + dyspnea with minimal activity, and unexplained cough. GI: No dysphagia/odynophagia, problematic reflux, constipation, diarrhea, changes in stool habits, hematochezia, melena. : No new urinary complaints, including dysuria, gross hematuria or pyuria. NEURO: No new balance problems, peripheral weakness/paresthesias or numbness of concern. MUSC-SKEL: No new joint pain, swelling, or erythema. PSY: No concerns regarding depression, anxiety or panic. INTEGUMENTARY: No new skin changes (rash, new or changing mole, new growth) PHYSICAL EXAMINATION: 57-year-old lady appeared to be in no acute distress. oxygen saturation 94% room air BP 132/79 Pulse 99 Temp 97 Ht 5' 4 (1.63m) Wt 170 lb 8 oz (77.3kg) BMI 29.25 kg/(m2). HEENT: Head is normocephalic, atraumatic. Sclerae white, conjunctivae pink. PEERL. EOMs are intact. Oropharynx is benign. LYMPHATICS: There is no palpable adenopathy in the neck, supraclavicular region, axillae, or groin. LUNGS: increase AP diameter, No stridor, accessory respiratory muscle use, supra-sternal or intercostal retractions. No wheezes, crackles HEART: Heart is normal without murmurs, gallops, or rubs. ABDOMEN: Soft and nontender without organomegaly. No masses can be palpated. EXTREMITIES: Are without edema. NEUROLOGIC: Exam is physiologic LABORATORY DATA: Component Latest Ref Rng AND Units 12/20/2017 WBC, [place] 3.70 - 11.00 k/uL 6.36 RBC, [place] 3.90 - 5.20 m/uL 5.57 (H) Hemoglobin, [place] 11.5 - 15.5 g/dL 17.7 (H) Hematocrit, [place] 36.0 - 46.0 % 52.8 (H) MCV, [place] 80.0 - 100.0 fL 94.8 MCH, [place] 26.0 - 34.0 pg 31.8 MCHC, [place] 30.5 - 36.0 g/dL 33.5 RDW, [place] 11.5 - 15.0 % 14.2 Platelet Cnt, [place] 150 - 400 k/uL 137 (L) MPV, [place] 9.0 - 12.7 fL 11.3 Neut%, [place] % 69.5 Lymp%, [place] % 18.9 [place]%, [place] % 10.4 Eos%, [place] % 0.9 Baso%, [place] % 0.3 Abs Neut, [place] 1.45 - 7.50 k/uL 4.42 Abs Lymp, [place] 1.00 - 4.00 k/uL 1.20 Abs [place], [place] <0.87 k/uL 0.66 Abs Eos, [place] <0.46 k/uL 0.06 Abs Baso, [place] <0.11 k/uL <0.03 peripheral blood smear: Erythrocytosis, platelet is adequate, no clumping or clotting. CT CHEST: Emphysema. Dilated main pulmonary artery consistent with chronic pulmonary arterial hypertension Mild basilar subsegmental atelectasis. Punctate calcified granuloma LEFT apex consistent with old granulomatous disease Pericardial effusion ASSESSMENT: 57-year-old female with secondary polycythemia. heavy smoker (2ppd x 40 years) with severe COPD, pulmonary hypertension and possible sleep apnea with oxygen desaturation. PLAN: - Check erythropoietin level and carboxyhemoglobin level today. If they are both elevated, then no further evaluation is needed for secondary polycythemia. - I encourage patient to stop smoking and follow up with PCP on a smoking cessation program. - Follow-up with pulmonary medicine for treatment of COPD. - Consider sleep study and oxygen monitoring for desaturation. Possible oxygen therapy for COPD. - therapeutic phlebotomy is not indicated for secondary polycythemia. I spent 45 minutes in the visit, with more than 50% of the total [id number] time of the visit in counseling / coordination of care. The patient and family were allowed enough time to ask questions. All questions were answered to their satisfaction. Patient and family verbalized understanding of treatment plan and agreed to proceed with therapy. Priya Collins MD. ELECTRONICALLY SIGNED Cc: LISA Chavarria LPN, LPN 12/20/2017 1:53 PM Signed New Pt. , discuss recent diagnosis, lab results: Elevated HGB FLORENCIA Knapp MD 12/20/2017 2:00 PM Signed Consider sleep study and check for oxygen desaturation. Referring Provider: TEX MILLER [[id number]] Allergies As of Date: 12/20/2017 Noted Allergy Reaction BEE STING 05/09/2013 7 - Swelling 12 - Shortness of Breath ALEVE (NAPROXEN) 05/09/2013 4 - Hives Date Reviewed: 12/20/2017 Reviewed by: Italia Nielsen ([place]) FLORENCIA Mcnamara - Fully Assessed Reason for Visit: New Patient [172] Primary Visit Diagnosis:Pulmonary emphysema, unspecified emphysema type (HCC) [J43.9] Other Visit Diagnoses:Obesity (BMI 30.0-34.9) [E66.9] Smoker [F17.200] Secondary polycythemia [D75.1] Pulmonary hypertension due to COPD (HCC) [I27.23, J44.9] Order(s):ERYTHROPOIETIN/EPO [SQEPO] Order #: [id number] FUTURE CARBOXYHEMOGLOBIN RAJENDRA [SQCO] Order #: [id number] FUTURE Level of Service: NEW PATIENT VISIT LEVEL 4 [[id number]] Disposition: Return if symptoms worsen or fail to improve. Follow-up and Disposition History Recorded Prescriptions as of 12/20/2017 Sig: IBUPROFEN 800 MG TABLET take 1 tablet by mouth every * SYMBICORT 160 MCG-4.5 MCG/ACT* Inhale 2 Puffs as instructed * TIOTROPIUM BROMIDE 18 MCG CAP* Inhale 1 capsule as instructe* EPINEPHRINE 0.3 MG/0.3 ML INJ* Inject 0.3 mL intramuscularly* ALBUTEROL SULFATE HFA 90 MCG/* Inhale 2 Puffs as instructed * OMEPRAZOLE 20 MG CAPSULE,DIONE* take 1 capsule by mouth every* OXYBUTYNIN CHLORIDE ER 10 MG * take 1 tablet by mouth once d* GABAPENTIN 400 MG CAPSULE take 3 capsules by mouth zahra* ROPINIROLE 0.5 MG TABLET take 2 tablets by mouth at be* ATORVASTATIN 10 MG TABLET take 1 tablet by mouth daily * COLCHICINE 0.6 MG TABLET Take 1 tablet by mouth twice * BUPROPION HCL SR 150 MG TABLE* Take one tab a day for 2 week* AMLODIPINE 5 MG TABLET take 1 tablet by mouth once d* BENAZEPRIL 20 MG TABLET Take 1 tablet by mouth once d* BACLOFEN 20 MG TABLET Take one tab 2-3 times a day * ASPIRIN 81 MG TABLET,DELAYED * Take 1 tablet by mouth once d* CHOLECALCIFEROL (VITAMIN D3) * Take 1 capsule by mouth once * Medication notes this encounter CHOLECALCIFEROL (VITAMIN D3) 4,000 UNIT CAPSULE >> Italia Mcnamara LPN, INDUSTRIAL ENGINEER 12/20/2017 1:46 PM >> ITALIA MCNAMARA Mon Dec 20, 2017 1:46 PM Not currently using Problem List As Of Date 12/20/2017 Noted Resolved Seasonal allergies [J30.2] Priority: B Routine gynecological examination [Z01.419] Priority: E More... Urge incontinence [N39.41] INVALID FOR* Priority: B Insomnia [G47.00] INVALID FOR* Priority: B Vitamin D deficiency [E55.9] INVALID FOR* Priority: A Smoker [F17.200] INVALID FOR* Priority: C More... Lipoma of buttock [D17.1] INVALID FOR* Priority: C More... More... Fibromyalgia [M79.7] INVALID FOR* Priority: B Essential hypertension [I10] INVALID FOR* Priority: A Chronic obstructive pulmonary disease (HCC) [J4*INVALID FOR* Priority: A More... Mixed hyperlipidemia [E78.2] INVALID FOR* Priority: A Gastroesophageal reflux disease without esophag*INVALID FOR* Priority: A Low back pain [M54.5] INVALID FOR* Priority: M More... Arthritis of both knees [M17.0] INVALID FOR* Priority: M More... Pericardial effusion [I31.3] INVALID FOR* Priority: A More... Carpal tunnel syndrome of left wrist [G56.02] INVALID FOR* Priority: M More... Obesity (BMI 35.0-39.9 without comorbidity) [E6*INVALID FOR*01/12/2017 Obesity (BMI 30.0-34.9) [E66.9] INVALID FOR* Priority: B More... Current use of proton pump inhibitor [Z79.899] INVALID FOR* More... Lumbar canal stenosis [M48.061] INVALID FOR* Priority: M More... Lumbar foraminal stenosis [M99.83] INVALID FOR* Priority: M Lumbar facet arthropathy (HCC) [M46.96] INVALID FOR* Priority: M CHF (congestive heart failure) (HCC) [I50.9] INVALID FOR* Priority: A More... YEN positive [R76.8] INVALID FOR* Priority: B More... Medicare annual wellness visit, subsequent [Z00*INVALID FOR* Priority: E More... Well adult exam [Z00.00] INVALID FOR* Priority: E More... Screening for colon cancer [Z12.11] INVALID FOR* Encounter for screening mammogram for breast ca*INVALID FOR* COPD (chronic obstructive pulmonary disease) (H* Elevated hemoglobin (HCC) [D58.2] INVALID FOR* Other instructions from your clinician: Consider sleep study and check for oxygen desaturation. Visit Notes: >> Italia Mcnamara LPN Mon Dec 20, 2017 1:44 PM Status: Signed New Pt. , discuss recent diagnosis, lab results: Elevated HGB Italia Mcnamara LPN Encounter Status:Closed by PRIYA COLLINS MD on 12/21/17 PROGRESS Observed: 12/20/2017 Status: COMPLETED Source: [place] 1:33 PM [facility] REPOSIT[facility] HNO ID: [id number] Author: Priya Collins Service: (none) Author Type: Physician Type: Progress Notes Filed: 12/21/2017 9:34 AM Note Text: Hematology and Medical Oncology PATIENT NAME: Cruz Hilton [place]. CLINIC NO: [id number]. ATTENDING PHYSICIAN: Priya Collins MD. DATE OF SERVICE:12/20/2017. DIAGNOSIS: Secondary polycythemia Consultation requested by Dr. Miller for an opinion regarding Polycythemia. My final recommendations will be communicated back to the requesting physician by way of shared Medical record or letter to requesting physician via US mail. PERFORMANCE STATUS:80% HPI: 57-year-old extensive smoker (2ppd x 40 years) with severe COPD, pulmonary hypertension and mild obesity who presented with polycythemia. She had polycythemia for couple years, but more recently her hemoglobin and hematocrit have increased. She saw pulmonary medicine recently AND her regimen for COPD was changed because of worsening symptoms. She also has anorexia progressive weight loss in the last 6 months because of shortness of breath. Patient has no headaches, chest pain, visual problem or hyperviscosity symptoms. patient has try to stop smoking several times and she is on Zyban. She was previously on nicotine patch and didn't make her heal well and she stopped. She also has tried Chantix in the past for smoking cessation. Patient has no fever, chills or night sweats. She has been recommended for sleep study in the past and possible snoring at night. she denies early satiety, or pruritus. MEDICATIONS: Current Outpatient Prescriptions: ibuprofen (MOTRIN) 800 mg tablet take 1 tablet by mouth every 8 hours with food if needed for pain SYMBICORT 160-4.5 mcg/actuation inhaler Inhale 2 Puffs as instructed twice daily. tiotropium (SPIRIVA WITH HANDIHALER) 18 mcg inhalation capsule Inhale 1 capsule as instructed once daily. USE WITH HANDIHALER. EPINEPHrine (EPIPEN) 0.3 mg/0.3 mL auto-injector Inject 0.3 mL intramuscularly as needed. albuterol HFA (PROAIR HFA) 90 mcg/actuation inhaler Inhale 2 Puffs as instructed every 6 hours as needed. omeprazole (PRILOSEC) 20 mg capsule take 1 capsule by mouth every morning 1/2 HOUR BEFORE BREAKFAST oxybutynin ER (DITROPAN XL) 10 mg 24 hr tablet take 1 tablet by mouth once daily ---TO REPLACE DETROL gabapentin (NEURONTIN) 400 mg capsule take 3 capsules by mouth daily at bedtime rOPINIRole (REQUIP) 0.5 mg tablet take 2 tablets by mouth at bedtime atorvastatin (LIPITOR) 10 mg tablet take 1 tablet by mouth daily at bedtime colchicine 0.6 mg tablet Take 1 tablet by mouth twice daily. buPROPion SR (ZYBAN SR; WELLBUTRIN SR) 150 mg 12 hr tablet Take one tab a day for 2 weeks then go to taking one twice a day. amLODIPine (NORVASC) 5 mg tablet take 1 tablet by mouth once daily benazepril (LOTENSIN) 20 mg tablet Take 1 tablet by mouth once daily. baclofen (LIORESAL) 20 mg tablet Take one tab 2-3 times a day for muscle spasms cholecalciferol, vitamin D3, 4,000 unit cap Take 1 capsule by mouth once daily. aspirin, enteric coated (ADULT LOW DOSE ASPIRIN) 81 mg EC tablet Take 1 tablet by mouth once daily. No current facility-administered medications for this visit. . ALLERGIES: ALLERGIES Allergen Reactions - Bee Sting Swelling, Shortness of Breath - Aleve [Naproxen] Hives . PAST MEDICAL HISTORY: PAST MEDICAL HISTORY Diagnosis Date - YEN positive 12/06/2017 Seeing Rheum - Cancer ([facility]) - CHF (congestive heart failure) ([facility]) 12/06/2017 - COPD (chronic obstructive pulmonary disease) ([facility]) - Fibromyalgia 03/09/2014 - HTN (hypertension) - Hyperlipidemia 01/30/2014 - Insomnia 09/20/2013 - Lipoma of buttock 01/25/2014 Left glut - Low back pain 05/09/2013 - Lumbar canal stenosis 12/06/2017 Moderate at L2-L3 - Lumbar facet arthropathy (HCC) 12/06/2017 - Lumbar foraminal stenosis 12/06/2017 - 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 Ruiz, on colchicine - Routine gynecological examination Dr. Arreola - Seasonal allergies - Smoker 01/25/2014 - Substance abuse - Urge incontinence 06/22/2013 - Vitamin D deficiency 01/25/2014 . PAST SURGICAL HISTORY: PAST SURGICAL HISTORY Procedure Laterality Date - FECAL OCCULT BLOOD TEST 12/09/2017 negative - STRESS TEST 08/28/2014 NL - HERLINDA W/WO REMOVAL TUBE OVARY HERLINDA-BSO - TONSILLECTOMY HX - [facility] DELIVERY SCHEDULING ORDER 2002 . FAMILY HISTORY: FAMILY HISTORY Problem Relation Age of Onset - Coronary Artery Disease Mother - Diabetes Mother - Headache Mother - Hypertension Mother - COPD Mother Multiple mebers of maternal family. - Diabetes Brother - Stroke Father - Breast Cancer Sister - Cancer Sister Lung. Uncle. . SOCIAL HISTORY:Social History Marital status: Spouse name: Years of education: Number of children: Occupational History Occupation Employer Comment [employer], last done 2011 Social History Main Topics Smoking status: Current Every Day Smoker Packs/day: 2.00 Years: 37.00 Start date: 1976 Smokeless tobacco: Never Used Alcohol use: No Comment: None since 2011, TO 02/2016. Drug use: No Social History Narrative Tried Chantix and Nicotine patch. First morning cigarette right after going to the bathroom. Hardest cigarette to give up- morning cigarette. Once get coffee in the morning, it is one after another. Quit during hospitalization with delivery of baby for 1 week. Smoked during . .REVIEW OF SYSTEMS: CONSTITUTIONAL: No fevers, chills, nightsweats, + unintended weight loss HEENT: Denies frequent or severe heaches, nasal congestion/sinus symptoms, problematic allergy problems. EYES: No diplopia or blurry vision. CARDIOVASCULAR: No chest pain, + dyspnea, palpitations, orthopnea, PND, ankle edema. PULM: + dyspnea with minimal activity, and unexplained cough. GI: No dysphagia/odynophagia, problematic reflux, constipation, diarrhea, changes in stool habits, hematochezia, melena. : No new urinary complaints, including dysuria, gross hematuria or pyuria. NEURO: No new balance problems, peripheral weakness/paresthesias or numbness of concern. MUSC-SKEL: No new joint pain, swelling, or erythema. PSY: No concerns regarding depression, anxiety or panic. INTEGUMENTARY: No new skin changes (rash, new or changing mole, new growth) PHYSICAL EXAMINATION: 57-year-old lady appeared to be in no acute distress. oxygen saturation 94% room air BP 132/79 Pulse 99 Temp 97 Ht 5' 4 (1.63m) Wt 170 lb 8 oz (77.3kg) BMI 29.25 kg/(m2). HEENT: Head is normocephalic, atraumatic. Sclerae white, conjunctivae pink. PEERL. EOMs are intact. Oropharynx is benign. LYMPHATICS: There is no palpable adenopathy in the neck, supraclavicular region, axillae, or groin. LUNGS: increase AP diameter, No stridor, accessory respiratory muscle use, supra-sternal or intercostal retractions. No wheezes, crackles HEART: Heart is normal without murmurs, gallops, or rubs. ABDOMEN: Soft and nontender without organomegaly. No masses can be palpated. EXTREMITIES: Are without edema. NEUROLOGIC: Exam is physiologic LABORATORY DATA: Component Latest Ref Rng AND Units 12/20/2017 WBC, [place] 3.70 - 11.00 k/uL 6.36 RBC, [place] 3.90 - 5.20 m/uL 5.57 (H) Hemoglobin, [place] 11.5 - 15.5 g/dL 17.7 (H) Hematocrit, [place] 36.0 - 46.0 % 52.8 (H) MCV, [place] 80.0 - 100.0 fL 94.8 MCH, [place] 26.0 - 34.0 pg 31.8 MCHC, [place] 30.5 - 36.0 g/dL 33.5 RDW, [place] 11.5 - 15.0 % 14.2 Platelet Cnt, [place] 150 - 400 k/uL 137 (L) MPV, [place] 9.0 - 12.7 fL 11.3 Neut%, [place] % 69.5 Lymp%, [place] % 18.9 [place]%, [place] % 10.4 Eos%, [place] % 0.9 Baso%, [place] % 0.3 Abs Neut, [place] 1.45 - 7.50 k/uL 4.42 Abs Lymp, [place] 1.00 - 4.00 k/uL 1.20 Abs [place], [place] <0.87 k/uL 0.66 Abs Eos, [place] <0.46 k/uL 0.06 Abs Baso, [place] <0.11 k/uL <0.03 peripheral blood smear: Erythrocytosis, platelet is adequate, no clumping or clotting. CT CHEST: Emphysema. Dilated main pulmonary artery consistent with chronic pulmonary arterial hypertension Mild basilar subsegmental atelectasis. Punctate calcified granuloma LEFT apex consistent with old granulomatous disease Pericardial effusion ASSESSMENT: 57-year-old female with secondary polycythemia. heavy smoker (2ppd x 40 years) with severe COPD, pulmonary hypertension and possible sleep apnea with oxygen desaturation. PLAN: - Check erythropoietin level and carboxyhemoglobin level today. If they are both elevated, then no further evaluation is needed for secondary polycythemia. - I encourage patient to stop smoking and follow up with PCP on a smoking cessation program. - Follow-up with pulmonary medicine for treatment of COPD. - Consider sleep study and oxygen monitoring for desaturation. Possible oxygen therapy for COPD. - therapeutic phlebotomy is not indicated for secondary polycythemia. I spent 45 minutes in the visit, with more than 50% of the total [id number] time of the visit in counseling / coordination of care. The patient and family were allowed enough time to ask questions. All questions were answered to their satisfaction. Patient and family verbalized understanding of treatment plan and agreed to proceed with therapy. Priya Collins MD. ELECTRONICALLY SIGNED Cc: LISA Chavarria CBC AND DIFF Collected: 12/20/2017 Status: F Source: [place] 1:26 PM [facility] REPOSITORY TYPE CODE TESTS RESULT OUT OF REFERENCE UNITS RANGE LAB WWBC 3.70-11.00 k/uL [place] WBC 6.36 LAB WRBC 3.90-5.20 m/uL [place] High RBC 5.57 LAB WHGB 11.5-15.5 g/dL [place] High Hemoglobin 17.7 LAB WHCT 36.0-46.0 % [place] Hematocrit 52.8 LAB WMCV 80.0-100.0 fL [place] MCV 94.8 LAB WMCH 26.0-34.0 pg [place] MCH 31.8 LAB WMCHC 30.5-36.0 g/dL [place] MCHC 33.5 LAB WRDW 11.5-15.0 % [place] RDW 14.2 LAB WPLT 150-400 k/uL Low [place] Platelet Cnt 137 LAB WMPV 9.0-12.7 fL [place] MPV 11.3 Result Comment: Test performed at: [facility] [place], [address] [place] [address]. LAB WNEUT % [place] Neut% 69.5 LAB WLYMP % [place] Lymp% 18.9 LAB WMONOC % [place]% 10.4 LAB WEOS % [place] Eos% 0.9 LAB WBASO % [place] Baso% 0.3 LAB WANEUT 1.45-7.50 k/uL [place] Abs Neut 4.42 LAB WALYMP 1.00-4.00 k/uL [place] Abs Lymp 1.20 LAB WAMONO <0.87 k/uL [place] Abs [place] 0.66 LAB WAEOS <0.46 k/uL [place] Abs Eos 0.06 LAB WABASO <0.11 k/uL [place] Abs Baso <0.03 CARBOXYHEMOGLOBIN,RAJENDRA Collected: Status: F Source: [place] 12/20/2017 1:24 PM [facility] REPOSITORY TYPE CODE TESTS RESULT OUT OF RANGE REFERENCE UNITS LAB CO <2.0 % High 14.6 Carboxyhemog lobin,Rajendra Performed By: #### CO, EPO #### [facility] [address] [place], [place] [address] EPO Collected: 12/20/2017 Status: F Source: [place] 1:24 PM [facility] REPOSITORY TYPE CODE TESTS RESULT OUT OF RANGE REFERENCE UNITS LAB EPO 2.6-18.5 mIU/mL EPO 15.0 Result Comment: Test analyzed by the [employer] DxI method. Performed By: #### CO, EPO #### [facility] [address] [place], [place] [address] PROGRESS Observed: 12/09/2017 Status: COMPLETED Source: [place] 1:10 PM [facility] REPOSITORY HNO ID: [id number] Author: Kaitlin Castañeda Service: (none) Author Type: Physician Director Learning And Development Type: Progress Notes Filed: 12/09/2017 1:35 PM Note Text: [facility], 12/09/17: HPI: The patient is here for follow up of COPD. PMH: Seasonal allergies, Pericardial effusion, HTN, Hyperlipidemia, Fibromyalgia, CHF Current daily smoker, 2 ppd (15 cigarettes, rolls own). 74 pack years. The last Pulmonary Clinic visit was 06/10/17. Since then the patient has not required ED care for exacerbation. There has been no hospital admission for exacerbation. Claims to be consistently compliant with prescribed maintenance Rx: Symbicort 2 inhalations twice daily and Anoro Ellipta (substituted for Tudorza) 1 inhalation once daily. 3-4 times daily rescue bronchodilator use, relief. No change chronic cough. Sputum volume and color have not changed. Variable wheezing, primarily at night. No dyspnea at rest. Exertional dyspnea. States she is unable to walk as far as she could 6 months ago. Exacerbated with humidity. PMH: Updated with patient today. FAMH: Updated with patient today. SOCH: Updated with patient today. Immunization History Administered Date(s) Administered Influenza Seasonal Inj Age 3+ 04/25/2014 Influenza Seasonal Inj Quadrivalent Age 3+ 04/15/2015 06/04/2016 06/07/2017 Influenza Vaccine, Split-Non Spec 05/09/2013 Pneumococcal-13 Vac Conjugate 09/12/2015 Pneumovax 04/25/2014 Tdap (Age 7+) 06/04/2016 ROS: General: Generally feels good. Appetite good. Weight stable. Eyes, Ears, nose, throat: Post nasal drip, rhinorrhea. No purulent nasal discharge, epistaxis. No hoarseness. Vision stable. Cardiac: No angina, edema, orthopnea. GI: No heartburn, dysphagia, diarrhea. Uro/REGULATORY AUDITOR: No dysuria, hesitancy, nocturia. Musculoskeletal: No pain. Neuro: No headache, focal weakness, tremor. Skin: No rash. Otherwise negative. Allergies were reviewed and updated, and medications were reconciled with the patient. PHYSICAL EXAMINATION: BP 92/64 Pulse 103 Resp 16 Ht 5' 5 (1.65m) Wt 170 lb (77.1kg) SpO2 98% BMI 28.29 kg/(m2). Gen: No acute distress. Cooperative with examination. ENT: Oral hygeine and dentition good. Pharynx clear. No halitosis. No sign of oral thrush. Resp: No stridor, accessory respiratory muscle use, supra- sternal or intercostal retractions. No wheezes, crackles. CV: Regular rythm. Heart tones normal. No carotid bruit. Radial pulses normal. Abd: Non distended. MSK: No kyphoscoliosis. Ext: Warm and well perfused. No clubbing, cyanosis, edema. Skin: No rash, ecchymoses. Neuro: Mental status normal. Affect normal. No tremor. DATA REVIEW: DATE: 12/09/17 06/10/17 12/09/16 09/10/16 03/05/16 FVC 3.04 (86 % pred) 2.98 (86 % pred) 2.93?(85?% pred) 2.83?(81?% pred) 2.61?(73?% pred) FEV1 1.25 (45 % pred) 1.27 (47 % pred) 1.33?(49?% pred) 1.27?(47?% pred) 0.96?(34?% pred) FEV1/FVC 0.41 0.43 0.45 0.45 0.37 Echo, 10/05/17 MEASUREMENTS: ?Value ?Indexed ? ?Normal Max aortic dimension ? ? 3.1 cm ? 1.61 cm/m? Left atrium diameter ? ? 3.8 cm (M-Mode) Left atrial volume ? ? ? 24 ml (4ch A-L) ?12 ml/m? ? Jose <= 34 LV ID (diastole) ? 3.3 cm (2D) LV ID (systole) ?1.9 cm (2D) IVS, leaflet tips ?1.1 cm (2D) Posterior wall thickness 1.0 cm (2D) Left ventricular mass ? ?103 g (2D) ? ? ? 53 g/m? LV stroke volume ? 26 ml (2D 4-ch.) LV end diastolic volume ?34 ml (2D 4-ch.) 17.6 ml/m? 29<=EDVi<62 LV end systolic volume ? 8 ml (2D 4-ch.) ?4.3 ml/m? Ejection Fraction ?75 % (2D 4-ch.) ? EF > 54 ? FINDINGS: ? LEFT VENTRICLE The left ventricle is small. Left ventricular systolic function is hyperdynamic. Grade I left ventricular diastolic dysfunction. Mitral annular lateral E/e': 7.7. Mitral annular septal E/e': 8.8. Wall Motion: All scored segments are normal. ? ? RIGHT VENTRICLE The right ventricle is dilated. Right ventricular systolic function is normal. RV systolic tissue Doppler velocity ?is 14.0 cm/s. Tricuspid annular displacement is 2.2 cm. Estimated right ventricular systolic pressure is not reported due to an insufficient tricuspid regurgitation signal. ? LEFT ATRIUM The left atrial cavity is normal in size. ? RIGHT ATRIUM The right atrial cavity is normal in size. Inferior Vena Cava: The inferior vena cava appears small measuring 1.1 cm. The vessel decreases greater than 50 percent with inspiration. MITRAL VALVE The mitral valve leaflets are structurally normal. There is no mitral valve regurgitation. There is no thickening. There is no calcification. The pressure half time is 80 msec. The peak mitral E/A ratio is 0.61. The average mitral E/e' ratio is 8.2. The mitral flow deceleration time is 277 msec. ? TRICUSPID VALVE There is trivial tricuspid valve regurgitation. The hepatic venous pattern showed normal systolic flow. ? AORTIC VALVE The aortic valve cusps are structurally normal. There is no aortic valve regurgitation. Tricuspid aortic valve. There is no thickening. There is no calcification. ? PULMONIC VALVE There is trivial pulmonic valve regurgitation. ? AORTA The visualized aorta is normal in size. Measurements - Sinus 3.1 cm. Sinotubular junction 2.6 cm. Mid ascending aorta 3.1 cm. PULMONARY ARTERIES The pulmonary arteries are unseen or not interrogated. ? PERICARDIUM There is moderate circumferential pericardial effusion. ? CONCLUSIONS: - Exam indication: Re-evaluation of known pericardial effusion to guide management ?/ therapy ? - The left ventricle is small. Left ventricular systolic function is hyperdynamic. ?EF = 75 ? 5% (2D 4-ch.) Grade I left ventricular diastolic dysfunction. - The right ventricle is dilated. Right ventricular systolic function is normal. - Moderate circumferential pericardial effusion, without evidence for tamponade. - LVOT gradient at rest is 31 mmHg, with valsalva LVOT gradient increases to 46 mmHg. - Since prior CC echocardiographic exam performed on 12/21/2016 CT scan, 09/17/17 IMPRESSION: Emphysema. Dilated main pulmonary artery consistent with chronic pulmonary arterial hypertension Mild basilar subsegmental atelectasis. Punctate calcified granuloma LEFT apex consistent with old granulomatous disease Pericardial effusion RESULT: Limitations: ?None. Lines, tubes, and devices: ?None. Lung parenchyma and pleura: Centrilobular emphysema predominantly in the upper lungs being cervical spine series. Punctate granuloma lateral LEFT apex (4:32). Transverse linear densities RIGHT and LEFT posterior lung base. No consolidation. No suspicious pulmonary nodule. No pleural effusion. Central airways are patent. Thoracic inlet, heart, and mediastinum: ?No lymphadenopathy in the axillary, mediastinal, or hilar regions. The thoracic aorta is normal in caliber. Dilatation of the main pulmonary artery which diameter about 3.7 cm. The cardiac chambers are normal in size. No coronary artery atherosclerotic calcifications are noted, although the study is not optimized for coronary assessment. There is a pericardial effusion with maximal axial thickness 1.6 cm. Bones and soft tissues: ?No destructive bone lesion. Chest wall is unremarkable. Upper abdomen: ?No abnormality in the imaged upper abdomen. IMPRESSION/RECOMMEND: COPD, severe, with decreased FEV1 and increased symptoms. 1. I re-addressed the pathophysiology of chronic bronchitis, emphysema, and COPD; and reviewed the management of this condition as outlined in the GOLD and ATS guidelines, including: smoking cessation, Pneumococcal and annual Influenza vaccination, bronchodilators, inhaled corticosteroids, antibiotics, exercise/rehabilitation, and oxygen. 2. I also again discussed mechanisms of action of medications, alternatives, and potential side effects of treatment. 3. Continue current maintenance Rx. Symbicort 2 inhalations twice daily. Rinse your mouth after each use to help prevent oral thrush. 4. Changes in maintenance Rx: Stop Anoro Ellipta. --> Start Spiriva 1 capsule daily. Sent to pharmacy. 5. Continue rescue inhaler as needed for relief of shortness of breath or wheezing, up to 4 times daily. 6. Re-assess in 3 months with lung function testing, sooner if needed. . Tobacco use disorder. Discussed risks of smoking and strongly urged patient to quit as soon as possible. I addressed the questions of the patient, and she expressed understanding and acceptance of my answers. Kaitlin Castañeda PA-C [facility] [address] [address] CNOV Observed: 12/09/2017 Status: COMPLETED Source: [place] 1:00 PM [facility] REPOSITORY Office Visit (PULMWS) CRUZ JACOBO ([id number]) 1960 F Date Time Provider Department 12/09/17 1:00 PM KAITLIN CASTAÑEDA PULSH[facility] During your visit today, we recorded the following information about you: Pulse Respiration Blood pressure Weight 103/minute 16/minute 92/64 77.1 kg Height 1.651 m Stefani Avila LPN 12/09/2017 1:07 PM Signed Intake information documented in the prior visit with Flory Alanis, COUNTY ENGINEER today. Kaitlin Castañeda PA-C 12/09/2017 1:35 PM Signed [facility], 12/09/17: HPI: The patient is here for follow up of COPD. PMH: Seasonal allergies, Pericardial effusion, HTN, Hyperlipidemia, Fibromyalgia, CHF Current daily smoker, 2 ppd (15 cigarettes, rolls own). 74 pack years. The last Pulmonary Clinic visit was 06/10/17. Since then the patient has not required ED care for exacerbation. There has been no hospital admission for exacerbation. Claims to be consistently compliant with prescribed maintenance Rx: Symbicort 2 inhalations twice daily and Anoro Ellipta (substituted for Tudorza) 1 inhalation once daily. 3-4 times daily rescue bronchodilator use, relief. No change chronic cough. Sputum volume and color have not changed. Variable wheezing, primarily at night. No dyspnea at rest. Exertional dyspnea. States she is unable to walk as far as she could 6 months ago. Exacerbated with humidity. PMH: Updated with patient today. FAMH: Updated with patient today. SOCH: Updated with patient today. Immunization History Administered Date(s) Administered Influenza Seasonal Inj Age 3+ 04/25/2014 Influenza Seasonal Inj Quadrivalent Age 3+ 04/15/2015 06/04/2016 06/07/2017 Influenza Vaccine, Split-Non Spec 05/09/2013 Pneumococcal-13 Vac Conjugate 09/12/2015 Pneumovax 04/25/2014 Tdap (Age 7+) 06/04/2016 ROS: General: Generally feels good. Appetite good. Weight stable. Eyes, Ears, nose, throat: Post nasal drip, rhinorrhea. No purulent nasal discharge, epistaxis. No hoarseness. Vision stable. Cardiac: No angina, edema, orthopnea. GI: No heartburn, dysphagia, diarrhea. Uro/REGULATORY AUDITOR: No dysuria, hesitancy, nocturia. Musculoskeletal: No pain. Neuro: No headache, focal weakness, tremor. Skin: No rash. Otherwise negative. Allergies were reviewed and updated, and medications were reconciled with the patient. PHYSICAL EXAMINATION: BP 92/64 Pulse 103 Resp 16 Ht 5' 5 (1.65m) Wt 170 lb (77.1kg) SpO2 98% BMI 28.29 kg/(m2). Gen: No acute distress. Cooperative with examination. ENT: Oral hygeine and dentition good. Pharynx clear. No halitosis. No sign of oral thrush. Resp: No stridor, accessory respiratory muscle use, supra- sternal or intercostal retractions. No wheezes, crackles. CV: Regular rythm. Heart tones normal. No carotid bruit. Radial pulses normal. Abd: Non distended. MSK: No kyphoscoliosis. Ext: Warm and well perfused. No clubbing, cyanosis, edema. Skin: No rash, ecchymoses. Neuro: Mental status normal. Affect normal. No tremor. DATA REVIEW: DATE: 12/09/17 06/10/17 12/09/16 09/10/16 03/05/16 FVC 3.04 (86 % pred) 2.98 (86 % pred) 2.93?(85?% pred) 2.83?(81?% pred) 2.61?(73?% pred) FEV1 1.25 (45 % pred) 1.27 (47 % pred) 1.33?(49?% pred) 1.27?(47?% pred) 0.96?(34?% pred) FEV1/FVC 0.41 0.43 0.45 0.45 0.37 Echo, 10/05/17 MEASUREMENTS: ?Value ?Indexed ? ?Normal Max aortic dimension ? ? 3.1 cm ? 1.61 cm/m? Left atrium diameter ? ? 3.8 cm (M-Mode) Left atrial volume ? ? ? 24 ml (4ch A-L) ?12 ml/m? ? Jose <= 34 LV ID (diastole) ? 3.3 cm (2D) LV ID (systole) ?1.9 cm (2D) IVS, leaflet tips ?1.1 cm (2D) Posterior wall thickness 1.0 cm (2D) Left ventricular mass ? ?103 g (2D) ? ? ? 53 g/m? LV stroke volume ? 26 ml (2D 4-ch.) LV end diastolic volume ?34 ml (2D 4-ch.) 17.6 ml/m? 29<=EDVi<62 LV end systolic volume ? 8 ml (2D 4-ch.) ?4.3 ml/m? Ejection Fraction ?75 % (2D 4-ch.) ? EF > 54 ? FINDINGS: ? LEFT VENTRICLE The left ventricle is small. Left ventricular systolic function is hyperdynamic. Grade I left ventricular diastolic dysfunction. Mitral annular lateral E/e': 7.7. Mitral annular septal E/e': 8.8. Wall Motion: All scored segments are normal. ? ? RIGHT VENTRICLE The right ventricle is dilated. Right ventricular systolic function is normal. RV systolic tissue Doppler velocity ?is 14.0 cm/s. Tricuspid annular displacement is 2.2 cm. Estimated right ventricular systolic pressure is not reported due to an insufficient tricuspid regurgitation signal. ? LEFT ATRIUM The left atrial cavity is normal in size. ? RIGHT ATRIUM The right atrial cavity is normal in size. Inferior Vena Cava: The inferior vena cava appears small measuring 1.1 cm. The vessel decreases greater than 50 percent with inspiration. MITRAL VALVE The mitral valve leaflets are structurally normal. There is no mitral valve regurgitation. There is no thickening. There is no calcification. The pressure half time is 80 msec. The peak mitral E/A ratio is 0.61. The average mitral E/e' ratio is 8.2. The mitral flow deceleration time is 277 msec. ? TRICUSPID VALVE There is trivial tricuspid valve regurgitation. The hepatic venous pattern showed normal systolic flow. ? AORTIC VALVE The aortic valve cusps are structurally normal. There is no aortic valve regurgitation. Tricuspid aortic valve. There is no thickening. There is no calcification. ? PULMONIC VALVE There is trivial pulmonic valve regurgitation. ? AORTA The visualized aorta is normal in size. Measurements - Sinus 3.1 cm. Sinotubular junction 2.6 cm. Mid ascending aorta 3.1 cm. PULMONARY ARTERIES The pulmonary arteries are unseen or not interrogated. ? PERICARDIUM There is moderate circumferential pericardial effusion. ? CONCLUSIONS: - Exam indication: Re-evaluation of known pericardial effusion to guide management ?/ therapy ? - The left ventricle is small. Left ventricular systolic function is hyperdynamic. ?EF = 75 ? 5% (2D 4-ch.) Grade I left ventricular diastolic dysfunction. - The right ventricle is dilated. Right ventricular systolic function is normal. - Moderate circumferential pericardial effusion, without evidence for tamponade. - LVOT gradient at rest is 31 mmHg, with valsalva LVOT gradient increases to 46 mmHg. - Since prior CC echocardiographic exam performed on 12/21/2016 CT scan, 09/17/17 IMPRESSION: Emphysema. Dilated main pulmonary artery consistent with chronic pulmonary arterial hypertension Mild basilar subsegmental atelectasis. Punctate calcified granuloma LEFT apex consistent with old granulomatous disease Pericardial effusion RESULT: Limitations: ?None. Lines, tubes, and devices: ?None. Lung parenchyma and pleura: Centrilobular emphysema predominantly in the upper lungs being cervical spine series. Punctate granuloma lateral LEFT apex (4:32). Transverse linear densities RIGHT and LEFT posterior lung base. No consolidation. No suspicious pulmonary nodule. No pleural effusion. Central airways are patent. Thoracic inlet, heart, and mediastinum: ?No lymphadenopathy in the axillary, mediastinal, or hilar regions. The thoracic aorta is normal in caliber. Dilatation of the main pulmonary artery which diameter about 3.7 cm. The cardiac chambers are normal in size. No coronary artery atherosclerotic calcifications are noted, although the study is not optimized for coronary assessment. There is a pericardial effusion with maximal axial thickness 1.6 cm. Bones and soft tissues: ?No destructive bone lesion. Chest wall is unremarkable. Upper abdomen: ?No abnormality in the imaged upper abdomen. IMPRESSION/RECOMMEND: COPD, severe, with decreased FEV1 and increased symptoms. 1. I re-addressed the pathophysiology of chronic bronchitis, emphysema, and COPD; and reviewed the management of this condition as outlined in the GOLD and ATS guidelines, including: smoking cessation, Pneumococcal and annual Influenza vaccination, bronchodilators, inhaled corticosteroids, antibiotics, exercise/rehabilitation, and oxygen. 2. I also again discussed mechanisms of action of medications, alternatives, and potential side effects of treatment. 3. Continue current maintenance Rx. Symbicort 2 inhalations twice daily. Rinse your mouth after each use to help prevent oral thrush. 4. Changes in maintenance Rx: Stop Anoro Ellipta. --> Start Spiriva 1 capsule daily. Sent to pharmacy. 5. Continue rescue inhaler as needed for relief of shortness of breath or wheezing, up to 4 times daily. 6. Re-assess in 3 months with lung function testing, sooner if needed. . Tobacco use disorder. Discussed risks of smoking and strongly urged patient to quit as soon as possible. I addressed the questions of the patient, and she expressed understanding and acceptance of my answers. Kaitlin Castañeda PA-C [facility] [address] [place] [id number] Kaitlin Castañeda PA-C 12/09/2017 1:34 PM Signed COPD, severe, with decreased FEV1 and increased symptoms. 1. I re-addressed the pathophysiology of chronic bronchitis, emphysema, and COPD; and reviewed the management of this condition as outlined in the GOLD and ATS guidelines, including: smoking cessation, Pneumococcal and annual Influenza vaccination, bronchodilators, inhaled corticosteroids, antibiotics, exercise/rehabilitation, and oxygen. 2. I also again discussed mechanisms of action of medications, alternatives, and potential side effects of treatment. 3. Continue current maintenance Rx. Symbicort 2 inhalations twice daily. Rinse your mouth after each use to help prevent oral thrush. 4. Changes in maintenance Rx: Stop Anoro Ellipta. --> Start Spiriva 1 capsule daily. Sent to pharmacy. 5. Continue rescue inhaler as needed for relief of shortness of breath or wheezing, up to 4 times daily. 6. Re-assess in 3 months with lung function testing, sooner if needed. . Tobacco use disorder. Discussed risks of smoking and strongly urged patient to quit as soon as possible. Referring Provider: KAITLIN CASTAÑEDA [[id number]] Allergies As of Date: 12/09/2017 Noted Allergy Reaction BEE STING 05/09/2013 7 - Swelling 12 - Shortness of Breath ALEVE (NAPROXEN) 05/09/2013 4 - Hives Date Reviewed: 12/09/2017 Reviewed by: Kaitlin Castañeda - Fully Assessed Reason for Visit: Established Patient [175] Cmt: COPD Primary Visit Diagnosis:Chronic obstructive pulmonary disease, unspecified COPD type (HCC) [J44.9] Other Visit Diagnosis:Tobacco use disorder [F17.200] Order(s):tiotropium (SPIRIVA WITH HANDIHALER) 18 mcg inhalation capsuleInhale 1 capsule as instructed once daily. USE WITH HANDIHALER.Disp: 30 capsuleRfl: 3 SPIROMETRY BASELINE ONLY [0820907] Order #: [id number] FUTURE Prescriptions as of 12/09/2017 Sig: SYMBICORT 160 MCG-4.5 MCG/ACT* Inhale 2 Puffs as instructed * EPINEPHRINE 0.3 MG/0.3 ML INJ* Inject 0.3 mL intramuscularly* ALBUTEROL SULFATE HFA 90 MCG/* Inhale 2 Puffs as instructed * OMEPRAZOLE 20 MG CAPSULE,DIONE* take 1 capsule by mouth every* OXYBUTYNIN CHLORIDE ER 10 MG * take 1 tablet by mouth once d* GABAPENTIN 400 MG CAPSULE take 3 capsules by mouth zahra* ROPINIROLE 0.5 MG TABLET take 2 tablets by mouth at be* ATORVASTATIN 10 MG TABLET take 1 tablet by mouth daily * COLCHICINE 0.6 MG TABLET Take 1 tablet by mouth twice * BUPROPION HCL SR 150 MG TABLE* Take one tab a day for 2 week* AMLODIPINE 5 MG TABLET take 1 tablet by mouth once d* BENAZEPRIL 20 MG TABLET Take 1 tablet by mouth once d* BACLOFEN 20 MG TABLET Take one tab 2-3 times a day * IBUPROFEN 800 MG TABLET Take 1 tablet by mouth every * CHOLECALCIFEROL (VITAMIN D3) * Take 1 capsule by mouth once * ASPIRIN 81 MG TABLET,DELAYED * Take 1 tablet by mouth once d* TIOTROPIUM BROMIDE 18 MCG CAP* Inhale 1 capsule as instructe* Problem List As Of Date 12/09/2017 Noted Resolved Seasonal allergies [J30.2] Priority: B Routine gynecological examination [Z01.419] Priority: E More... Urge incontinence [N39.41] INVALID FOR* Priority: B Insomnia [G47.00] INVALID FOR* Priority: B Vitamin D deficiency [E55.9] INVALID FOR* Priority: A Smoker [F17.200] INVALID FOR* Priority: C More... Lipoma of buttock [D17.1] INVALID FOR* Priority: C More... More... Fibromyalgia [M79.7] INVALID FOR* Priority: B Essential hypertension [I10] INVALID FOR* Priority: A Chronic obstructive pulmonary disease (HCC) [J4*INVALID FOR* Priority: A More... Mixed hyperlipidemia [E78.2] INVALID FOR* Priority: A Gastroesophageal reflux disease without esophag*INVALID FOR* Priority: A Low back pain [M54.5] INVALID FOR* Priority: M More... Arthritis of both knees [M17.0] INVALID FOR* Priority: M More... Pericardial effusion [I31.3] INVALID FOR* Priority: A More... Carpal tunnel syndrome of left wrist [G56.02] INVALID FOR* Priority: M More... Obesity (BMI 35.0-39.9 without comorbidity) [E6*INVALID FOR*01/12/2017 Obesity (BMI 30.0-34.9) [E66.9] INVALID FOR* Priority: B More... Current use of proton pump inhibitor [Z79.899] INVALID FOR* More... Lumbar canal stenosis [M48.061] INVALID FOR* Priority: M More... Lumbar foraminal stenosis [M99.83] INVALID FOR* Priority: M Lumbar facet arthropathy (HCC) [M46.96] INVALID FOR* Priority: M CHF (congestive heart failure) (HCC) [I50.9] INVALID FOR* Priority: A More... YEN positive [R76.8] INVALID FOR* Priority: B More... Medicare annual wellness visit, subsequent [Z00*INVALID FOR* Priority: E More... Well adult exam [Z00.00] INVALID FOR* Priority: E More... Screening for colon cancer [Z12.11] INVALID FOR* Encounter for screening mammogram for breast ca*INVALID FOR* COPD (chronic obstructive pulmonary disease) (H* Other instructions from your clinician: COPD, severe, with decreased FEV1 and increased symptoms. 1. I re-addressed the pathophysiology of chronic bronchitis, emphysema, and COPD; and reviewed the management of this condition as outlined in the GOLD and ATS guidelines, including: smoking cessation, Pneumococcal and annual Influenza vaccination, bronchodilators, inhaled corticosteroids, antibiotics, exercise/rehabilitation, and oxygen. 2. I also again discussed mechanisms of action of medications, alternatives, and potential side effects of treatment. 3. Continue current maintenance Rx. Symbicort 2 inhalations twice daily. Rinse your mouth after each use to help prevent oral thrush. 4. Changes in maintenance Rx: Stop Anoro Ellipta. --> Start Spiriva 1 capsule daily. Sent to pharmacy. 5. Continue rescue inhaler as needed for relief of shortness of breath or wheezing, up to 4 times daily. 6. Re-assess in 3 months with lung function testing, sooner if needed. . Tobacco use disorder. Discussed risks of smoking and strongly urged patient to quit as soon as possible. Visit Notes: >> Stefani Avila INDUSTRIAL ENGINEER Kat Dec 09, 2017 1:06 PM Status: Signed Intake information documented in the prior visit with Flory Alanis, COUNTY ENGINEER today. Prescriptions ordered this encounter Disp Refills Start End TIOTROPIUM BROMIDE 18 MCG CAPSULE WI* 30 c* 3 12/09/2017 Cmt: Please call if not covered by insurance. Alternatives would include Tudorza or Incruse. Route: INHALATION Sig: Inhale 1 capsule as instructed once daily. USE WITH HANDIHALER. Medications Discontinued During This Encounter umeclidinium-vilanterol (ANORO ELLIP* 1 Ea* 5 09/02/2017 12/09/2017 Route: INHALATION Sig: Inhale 1 Inhalation as instructed once daily. Disc: Changing Therapy/Dosage Form Disposition: Return in about 3 months (around 03/11/2018). Follow-up and Disposition History Recorded Encounter Status:Closed by KAITLIN CASTAÑEDA on 12/09/17 CBC AND DIFFERENTIAL Collected: 12/09/2017 Status: F Source: [facility] 12:16 PM [facility] REPOSITORY TYPE CODE TESTS RESULT OUT OF REFERENCE UNITS RANGE LAB WBC 3.70-11.00 k/uL WBC 5.49 LAB RBC 3.90-5.20 m/uL RBC High 5.68 LAB HGB 11.5-15.5 g/dL High Hemoglobin 17.6 LAB HCT 36.0-46.0 % High Hematocrit 55.5 LAB MCV 80.0-100.0 fL MCV 97.7 LAB MCH 26.0-34.0 pG MCH 31.0 LAB MCHC 30.5-36.0 g/dL MCHC 31.7 LAB RDWCV 11.5-15.0 % RDW-CV 13.8 LAB PLTCT 150-400 k/uL Platelet Count 155 LAB MPV 9.0-12.7 fL MPV 12.3 LAB ANEUT % Neut% 64.0 LAB AANEUT 1.45-7.50 k/uL Abs Neut 3.49 LAB ALYMP % Lymph% 25.1 LAB AALYMP 1.00-4.00 k/uL Abs Lymph 1.38 LAB AMONO % [place]% 8.7 LAB AAMONO <0.87 k/uL Abs [place] 0.48 LAB AEOS % Eosin% 1.5 LAB AAEOS <0.46 k/uL Abs Eosin 0.08 LAB ABASO % Baso% 0.7 LAB AABASO <0.11 k/uL Abs Baso 0.04 LAB AUNRBC 0 /100 WBC NRBCs 0.0 LAB ABNRBC <0.01 k/uL Absolute nRBC <0.01 LAB DTYP DTYPE Auto Diff Performed By: #### CBCDIF, PT, PTT #### [facility] [address] [place], [place] [address] PROTIME Collected: 12/09/2017 Status: F Source: [facility] 12:16 PM [facility] REPOSITORY TYPE CODE TESTS RESULT OUT OF RANGE REFERENCE UNITS LAB PSEC 9.7-13.0 sec PT Sec 11.4 LAB INR 0.9-1.3 PT INR 1.1 Result Comment: Vitamin K Antagonist (VKA) Therapeutic Range: INR 2 to 3 (Target INR of 2.5) Note: For patients treated with VKA drugs, such as warfarin, the [place] [employer] 2012 Guideline recommends a therapeutic INR range of 2 to 3 (target INR of 2.5). This recommendation includes high-risk patients with antiphospholipid syndrome with previous arterial or venous thromboembolism, current-generation mechanical or bioprosthetic aortic heart valve replacement. Note: Patients with mechanical aortic valve replacement and additional risk factors for thromboembolic events (atrial fibrillation, previous thromboembolism, LV dysfunction, hypercoagulable conditions) or an older generation mechanical AVR (i.e., ball in-Cage) or any mechanical MVR should have a INR therapeutic range of 2.5 to 3.5 (target INR of 3). Jackie GH, et al. Chest 2012, 141:7S-47S Daphne RA, et al. JAC 2017, 70: 252-289 Performed By: #### CBCDIF, PT, PTT #### [facility] [address] [place], [place] [address] APTT Collected: 12/09/2017 Status: F Source: [facility] 12:16 PM [facility] REPOSITORY TYPE CODE TESTS RESULT OUT OF RANGE REFERENCE UNITS LAB APTT 23.0-32.4 sec APTT 26.6 Result Comment: Unfractionated Heparin Therapeutic Ranges: Standard Heparin Nomogram: 53 to 78 seconds (anti-Xa level of 0.3 to 0.7 U/ml) Low Dose/ACS Nomogram: 49 to 67 seconds (anti-Xa level of 0.2 to 0.5 U/ml) Stroke Treatment Nomogram: 49 to 67 seconds (anti-Xa level of 0.2 to 0.5 U/ml) Note: The APTT therapeutic range has been determined for the current lot of laboratory APTT reagent in use throughout the [facility]. Performed By: #### CBCDIF, PT, PTT #### [facility] [address] [place], [place] [address] FECAL OCCULT BLD Collected: 2017 Status: F Source: [facility] 2:45 PM [facility] REPOSITORY TYPE CODE TESTS RESULT OUT OF REFERENCE UNITS RANGE LAB IFO Negative Immuno Negative FOB Result Comment: This test was developed and its performance characteristics determined by [facility] [place] ([facility]). It has not been cleared or approved by the FDA. -[facility] is regulated under CLIA as qualified to perform high-complexity testing. This test is used for clinical purposes. It should not be regarded as investigational or for research. Performed By: #### IFOBT #### [facility] [address] [place], [place] [address] PROGRESS Observed: 12/06/2017 Status: COMPLETED Source: [facility] 2:27 PM [facility] REPOSITORY HNO ID: [id number] Author: Tex Miller Service: (none) Author Type: Physician Type: Progress Notes Filed: 12/06/2017 9:04 PM Note Text: Welcome To Medicare Visit Medical B eligibility date 02/26/2015 Date of last exam NA PAST MEDICAL HISTORY Diagnosis Date - Cancer (HCC) - COPD (chronic obstructive pulmonary disease) (HCC) - Fibromyalgia 03/09/2014 - HTN (hypertension) - Hyperlipidemia 01/30/2014 - Insomnia 09/20/2013 - Lipoma of buttock 01/25/2014 Left glut - Low back pain 05/09/2013 - Lumbar canal stenosis 12/06/2017 Moderate at L2-L3 - Lumbar facet arthropathy (HCC) 12/06/2017 - Lumbar foraminal stenosis 12/06/2017 - 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 Arreola - Seasonal allergies - Smoker 01/25/2014 - Substance abuse - Urge incontinence 06/22/2013 - Vitamin D deficiency 01/25/2014 PAST SURGICAL HISTORY Procedure Laterality Date - STRESS TEST 08/28/2014 NL - HERLINDA W/WO REMOVAL TUBE OVARY HERLINDA-BSO - TONSILLECTOMY HX - [facility] DELIVERY SCHEDULING ORDER 2002 Bee Sting; Aleve [Naproxen] Medications reviewed: Yes FAMILY HISTORY Problem Relation Age of Onset - Coronary Artery Disease Mother - Diabetes Mother - Headache Mother - Hypertension Mother - COPD Mother Multiple mebers of maternal family. - Diabetes Brother - Stroke Father - Breast Cancer Sister - Cancer Sister Lung. Uncle. SOCIAL HISTORY: Social History Marital status: Spouse name: Years of education: Number of children: Occupational History Occupation Employer Comment [employer], last done 2011 Social History Main Topics Smoking status: Current Every Day Smoker Packs/day: 2.00 Years: 37.00 Start date: 1976 Smokeless tobacco: Never Used Alcohol use: No Comment: None since 2011, TO 02/2016. Drug use: No Social History Narrative Tried Chantix and Nicotine patch. First morning cigarette right after going to the bathroom. Hardest cigarette to give up- morning cigarette. Once get coffee in the morning, it is one after another. Quit during hospitalization with delivery of baby for 1 week. Smoked during . Cruz denies regular aerobic exercise. She watches her diet for sodium, low fat and low cholesterol some of the time. List of current specialists seen: Dr. Arreola, Dr. Ruiz and Dr. Isaacs, Dr. Campos End of Live Planning discussed including patients advanced directive wishes: No I am willing to follow Cruz's advanced directives. Depression screen She in the past two weeks denies having felt down, depressed, hopeless or with little interest or pleasure in doing things. Functional Ability/Safety Screen 1. Was the patient's timed Up and Go test unsteady or longer than 30 seconds? No 2. Does the patient need help with the phone, transportation, shopping,preparing meals, housework, laundry, medications or managing money? No 3. Does your home have rugs in the hallway, lack of grab bars in the bathroom, lack of handrails on the stairs or have poor lighting? No Hearing Evaluation: normal PHYSICAL EXAM BP 122/74 Pulse 88 Resp 16 Ht 165.1 cm (5' 5) Wt 78 kg (172 lb) BMI 28.62 kg/m? Alert and oriented X 3: YES Body mass index is 28.62 kg/m?. See below ASSESSMENT/PLAN: 56 year old female The following prevention plan was discussed during the office visit and provided to the patient: See Below Tex Miller MD Chief Complaint Patient presents with: Physical: 6 month follow up HPI Cruz Jacobo is a 56 year old female who presents here today for extensive exam. Patient with Hx that was reviewed and updated below. Has been doing ok. Still smoking. Stopped seeing Dr. Soni for pain management. Past medical history, appointments, medications, allergies reviewed. 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 Arreola - Seasonal allergies - Smoker 01/25/2014 - Substance abuse - Urge incontinence 06/22/2013 - Vitamin D deficiency 01/25/2014 Previous Surgical History PAST SURGICAL HISTORY Procedure Laterality Date - STRESS TEST 08/28/2014 NL - HERLINDA W/WO REMOVAL TUBE OVARY HERLINDA-BSO - TONSILLECTOMY HX - [facility] DELIVERY SCHEDULING ORDER 2002 Family History FAMILY HISTORY Problem Relation Age of Onset - Coronary Artery Disease Mother - Diabetes Mother - Headache Mother - Hypertension Mother - COPD Mother Multiple mebers of maternal family. - Diabetes Brother - Stroke Father - Breast Cancer Sister - Cancer Sister Lung. Uncle. Patient Allergies ALLERGIES Allergen Reactions - Bee Sting Swelling, Shortness of Breath - Aleve [Naproxen] Hives Current Medications Current Outpatient Prescriptions on File Prior to Visit: omeprazole (PRILOSEC) 20 mg capsule take 1 capsule by mouth every morning 1/2 HOUR BEFORE BREAKFAST oxybutynin ER (DITROPAN XL) 10 mg 24 hr tablet take 1 tablet by mouth once daily ---TO REPLACE DETROL gabapentin (NEURONTIN) 400 mg capsule take 3 capsules by mouth daily at bedtime rOPINIRole (REQUIP) 0.5 mg tablet take 2 tablets by mouth at bedtime atorvastatin (LIPITOR) 10 mg tablet take 1 tablet by mouth daily at bedtime colchicine 0.6 mg tablet Take 1 tablet by mouth twice daily. buPROPion SR (ZYBAN SR; WELLBUTRIN SR) 150 mg 12 hr tablet Take one tab a day for 2 weeks then go to taking one twice a day. umeclidinium-vilanterol (ANORO ELLIPTA) 62.5-25 mcg/actuation inhaler Inhale 1 Inhalation as instructed once daily. amLODIPine (NORVASC) 5 mg tablet take 1 tablet by mouth once daily benazepril (LOTENSIN) 20 mg tablet Take 1 tablet by mouth once daily. baclofen (LIORESAL) 20 mg tablet Take one tab 2-3 times a day for muscle spasms ibuprofen (MOTRIN) 800 mg tablet Take 1 tablet by mouth every 8 hours as needed for Pain. Take with food. cholecalciferol, vitamin D3, 4,000 unit cap Take 1 capsule by mouth once daily. EPINEPHrine 0.3 mg/0.3 mL auto-injector Inject 0.3 mL intramuscularly as needed. aspirin, enteric coated (ADULT LOW DOSE ASPIRIN) 81 mg EC tablet Take 1 tablet by mouth once daily. No current facility-administered medications on file prior to visit. 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 Drug use: No Social History Narrative Tried Chantix and Nicotine patch. First morning cigarette right after going to the bathroom. Hardest cigarette to give up- morning cigarette. Once get coffee in the morning, it is one after another. Quit during hospitalization with delivery of baby for 1 week. Smoked during . Review of Symptoms REVIEW OF SYSTEMS GENERAL: No weight loss, malaise or fevers HEENT: Negative for frequent or significant headaches, significant change in vision, significant vision problems, significant ear problems or hearing loss, nasal discharge, or nose bleeds, sore throat, difficulty swallowing, mouth lesions, hoarseness. Gets tinnitus occasionally. NECK: Negative for lumps, goiter, pain and significant neck swelling RESPIRATORY: Negative for cough, hemoptysis. Breathing has been stable CARDIOVASCULAR: Negative for chest pain, leg swelling, hypertension, CHF or palpitations GI: No nausea, vomiting, or diarrhea, No heartburn or reflux symptoms and no blood. : No history of dysuria or blood MUSCULOSKELETAL: Negative for changes in typical joint pain or swelling, back pain or muscle pain. Gets cramping behind the knees some nights. SKIN: Negative for lesions, rash, and itching PSYCH: Negative for sleep disturbance, mood disorder and recent psychosocial stressors HEMATOLOGY/LYMPHOLOGY: some easy bruising and not always sure why or how. ENDOCRINE: Negative for cold or heat intolerance, polyuria, polydipsia and goiter NEURO: No history of headaches, syncope, paralysis, seizures or tremors EXAM: BP 122/74 Pulse 88 Resp 16 Ht 165.1 cm (5' 5) Wt 78 kg (172 lb) BMI 28.62 kg/m? General Appearance: Well appearing, alert, in no acute distress, well-hydrated, well nourished.. Skin: Skin color, texture, turgor normal, no suspicious rashes or lesions. Has some lipomas (bilateral medial elbows, upper right abdomen). Some bruises on her upper extremities which be be normal with being on an aspirin daily. Head: Normocephalic, no masses, lesions, tenderness or abnormalities. Eyes: Anicteric sclera. Pupils are equally round and reactive to light. Extraocular movements are intact. . Ears: External ears normal, canals clear. Nose/Sinuses: Nares normal, septum midline, mucosa normal, no drainage or sinus tenderness. Oropharynx: Lips, mucosa, and tongue normal, teeth and gums normal, oropharynx normal. Neck: Supple, no adenopathy; thyroid symmetric, normal size, no bruits. Lungs: Lungs clear to auscultation. No wheezing, rhonchi, rales. Heart: RRR without murmur, gallop, or rubs. No ectopy. Abdomen: Normal abdominal exam, Abdomen soft, non-tender. Bowel sounds normal. No masses, organomegaly. Extremities: No deformities, edema, skin discoloration. Musculoskeletal: Muscular strength intact, No joint swelling, deformity, or tenderness. Peripheral Pulses: Normal. Neurologic: Gait normal. Reflexes normal and symmetric. Sensation to light touch and crainal nerves 2-12 intact.. Health Maintenance List FECAL OCCULT BLOOD due on 09/12/2016 MAMMOGRAM due on 10/09/2017 PAP EVERY 5 YEARS due on 09/24/2020 HPV EVERY 5 YEARS due on 09/24/2020 DIABETES SCREEN due on 10/29/2020 LIPID SCREEN due on 09/16/2022 DTAP,TDAP,TD(2 - Td) due on 06/04/2026 ONE PNEUMOVAX PRIOR TO AGE 65 Completed INFLUENZA Completed HEPATITIS C SCREENING Completed Data reviewed Component Latest Ref Rng AND Units 09/16/2017 10/29/2017 Glucose 74 - 99 mg/dL 83 BUN 7 - 21 mg/dL 13 Creatinine 0.58 - 0.96 mg/dL 1.00 (H) Sodium 136 - 144 mmol/L 140 Potassium 3.7 - 5.1 mmol/L 4.7 Chloride 97 - 105 mmol/L 100 CO2 22 - 30 mmol/L 24 Anion Gap 9 - 18 mmol/L 16 Calcium 8.5 - 10.2 mg/dL 10.0 eGFR- >60 eGFR-All Other Races . 58 Cholesterol, Total <200 mg/dL 186 Triglyceride <150 mg/dL 151 (H) HDL Cholesterol >39 mg/dL 37 (L) LDL Cholesterol <100 mg/dL 119 (H) Non HDL Cholesterol <130 mg/dL 149 (H) Fasting Time hrs 12 VLDL Cholesterol <30 mg/dL 30 (H) TC:HDL Ratio <5.10 5.03 LDL:HDL Ratio <2.54 3.22 (H) Albumin 3.9 - 4.9 g/dL 4.1 Bilirubin, Total 0.2 - 1.3 mg/dL 0.4 Bilirubin, Conjug <0.2 mg/dL <0.2 Alkaline Phosphatase 32 - 117 U/L 87 AST 13 - 35 U/L 23 ALT 7 - 38 U/L 15 17 Protein, Total 6.3 - 8.0 g/dL 7.2 Vitamin D 25 Hydroxy 31.0 - 80.0 ng/mL 39.4 Magnesium 1.7 - 2.3 mg/dL 2.2 TSH 0.400 - 5.500 uU/mL 0.991 Free T4 0.9 - 1.7 ng/dL 1.5 A/P ASSESSMENT/PLAN: 1. Medicare annual wellness visit, subsequent - ICD9: V70.0, ICD10: Z00.00 (primary diagnosis) - Encouraged monthly Breast Self Exam - Follow up for annual exam in one year. 2. Essential hypertension - ICD9: 401.9, ICD10: I10 - good control - Continue current medication(s) - Recommended regular aerobic exercise. - Recommend home blood pressure monitoring, to bring results in on next visit - Goal of BP <140/90 3. Chronic obstructive pulmonary disease, unspecified COPD type (HCC) - ICD9: 496, ICD10: J44.9 - Cont current meds and f/u with pulm 4. Mixed hyperlipidemia - ICD9: 272.2, ICD10: E78.2 - good control - Continue current medication. - Encouraged following a low fat, low cholesterol diet. - Discussed the benefits of regular aerobic exercise and weight loss. - Encouraged following a low carbohydrate, healthy oil intake diet. 5. Gastroesophageal reflux disease without esophagitis - ICD9: 530.81, ICD10: K21.9 - Continue treatment with Prilosec 20 mg QD 6. Congestive heart failure, unspecified HF chronicity, unspecified heart failure type (HCC) - ICD9: 428.0, ICD10: I50.9 - Clinically stable. No changes and cont f/u with cardio 7. Pericardial effusion - ICD9: 423.9, ICD10: I31.3 - Clinically stable. No changes and cont f/u with cardio 8. Vitamin D deficiency - ICD9: 268.9, ICD10: E55.9 - Stable with replacement 9. Smoker - ICD9: 305.1, ICD10: F17.200 - Cessation encouraged. - Counseling was given focusing on the harmful effects of this addiction especially given the patient's medical condition(s) which will be worsened because of the chemicals in tobacco. - Counseling was given 3-4 minutes. 10. Chronic low back pain, unspecified back pain laterality, with sciatica presence unspecified - ICD9: 724.2, 338.29, ICD10: M54.5, G89.29 Chronic low back pain Discussed referral to spine surgery but has no interest in this avenue at this time. 11. Spinal stenosis of lumbar region, unspecified whether neurogenic claudication present - ICD9: 724.02, ICD10: M48.061 Chronic low back pain - See above 12. Lumbar foraminal stenosis - ICD9: 724.02, ICD10: M99.83 Chronic low back pain - See above 13. Lumbar facet arthropathy (HCC) - ICD9: 721.3, ICD10: M46.96 - As above 14. YEN positive - ICD9: 795.79, ICD10: R76.8 - cont with Rheum 15. Fibromyalgia - ICD9: 729.1, ICD10: M79.7 - Cont with Rheum. 16. Urge incontinence - ICD9: 788.31, ICD10: N39.41 - Cont oxybutynin. 17. Obesity (BMI 30.0-34.9) - ICD9: 278.00, ICD10: E66.9 - Patient to work on diet and exercise. 18. Screening for colon cancer - ICD9: V76.51, ICD10: Z12.11 Check - FECAL OCCULT BLOOD TEST 19. Encounter for screening mammogram for breast cancer - ICD9: V76.12, ICD10: Z12.31 Check - NORMA SCREENING 20. Bruising - ICD9: 924.9, ICD10: T14.8XXA Check - CBC + DIFF - PROTHROMBIN TIME/PT - ACTIVATED PTT f/u 6 months routine check has labs set up for Jan and Feb. Time with patient face to face was 40 min for extensive and 10 min for medicare wellness. Tex Miller MD CNOV Observed: 12/06/2017 Status: COMPLETED Source: [facility] 2:00 PM [facility] REPOSITORY [facility] CRUZ JACOBO ([id number]) 1960 F Date Time Provider Department 12/06/17 2:00 PM TEX MILLER During your visit today, we recorded the following information about you: Pulse Respiration Blood pressure Weight 88/minute 16/minute 122/74 78 kg Height 1.651 m Tex Miller MD 12/06/2017 9:04 PM Signed Welcome To Medicare Visit Medical B eligibility date 02/26/2015 Date of last exam NA PAST MEDICAL HISTORY Diagnosis Date - Cancer (HCC) - COPD (chronic obstructive pulmonary disease) (HCC) - Fibromyalgia 03/09/2014 - HTN (hypertension) - Hyperlipidemia 01/30/2014 - Insomnia 09/20/2013 - Lipoma of buttock 01/25/2014 Left glut - Low back pain 05/09/2013 - Lumbar canal stenosis 12/06/2017 Moderate at L2-L3 - Lumbar facet arthropathy (HCC) 12/06/2017 - Lumbar foraminal stenosis 12/06/2017 - 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 Arreola - Seasonal allergies - Smoker 01/25/2014 - Substance abuse - Urge incontinence 06/22/2013 - Vitamin D deficiency 01/25/2014 PAST SURGICAL HISTORY Procedure Laterality Date - STRESS TEST 08/28/2014 NL - HERLINDA W/WO REMOVAL TUBE OVARY HERLINDA-BSO - TONSILLECTOMY HX - [facility] DELIVERY SCHEDULING ORDER 2002 Bee Sting; Aleve [Naproxen] Medications reviewed: Yes FAMILY HISTORY Problem Relation Age of Onset - Coronary Artery Disease Mother - Diabetes Mother - Headache Mother - Hypertension Mother - COPD Mother Multiple mebers of maternal family. - Diabetes Brother - Stroke Father - Breast Cancer Sister - Cancer Sister Lung. Uncle. SOCIAL HISTORY: Social History Marital status: Spouse name: Years of education: Number of children: Occupational History Occupation Employer Comment [employer], last done 2011 Social History Main Topics Smoking status: Current Every Day Smoker Packs/day: 2.00 Years: 37.00 Start date: 1976 Smokeless tobacco: Never Used Alcohol use: No Comment: None since 2011, TO 02/2016. Drug use: No Social History Narrative Tried Chantix and Nicotine patch. First morning cigarette right after going to the bathroom. Hardest cigarette to give up- morning cigarette. Once get coffee in the morning, it is one after another. Quit during hospitalization with delivery of baby for 1 week. Smoked during . Cruz denies regular aerobic exercise. She watches her diet for sodium, low fat and low cholesterol some of the time. List of current specialists seen: Dr. Arreola, Dr. Ruiz and Dr. Isaacs, Dr. Campos End of Live Planning discussed including patients advanced directive wishes: No I am willing to follow Cruz's advanced directives. Depression screen She in the past two weeks denies having felt down, depressed, hopeless or with little interest or pleasure in doing things. Functional Ability/Safety Screen 1. Was the patient's timed Up and Go test unsteady or longer than 30 seconds? No 2. Does the patient need help with the phone, transportation, shopping,preparing meals, housework, laundry, medications or managing money? No 3. Does your home have rugs in the hallway, lack of grab bars in the bathroom, lack of handrails on the stairs or have poor lighting? No Hearing Evaluation: normal PHYSICAL EXAM BP 122/74 Pulse 88 Resp 16 Ht 165.1 cm (5' 5) Wt 78 kg (172 lb) BMI 28.62 kg/m? Alert and oriented X 3: YES Body mass index is 28.62 kg/m?. See below ASSESSMENT/PLAN: 56 year old female The following prevention plan was discussed during the office visit and provided to the patient: See Below Tex Miller MD Chief Complaint Patient presents with: Physical: 6 month follow up HPI Cruz Jacobo is a 56 year old female who presents here today for extensive exam. Patient with Hx that was reviewed and updated below. Has been doing ok. Still smoking. Stopped seeing Dr. Soni for pain management. Past medical history, appointments, medications, allergies reviewed. 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 Arreola - Seasonal allergies - Smoker 01/25/2014 - Substance abuse - Urge incontinence 06/22/2013 - Vitamin D deficiency 01/25/2014 Previous Surgical History PAST SURGICAL HISTORY Procedure Laterality Date - STRESS TEST 08/28/2014 NL - HERLNIDA W/WO REMOVAL TUBE OVARY HERLINDA-BSO - TONSILLECTOMY HX - [facility] DELIVERY SCHEDULING ORDER 2002 Family History FAMILY HISTORY Problem Relation Age of Onset - Coronary Artery Disease Mother - Diabetes Mother - Headache Mother - Hypertension Mother - COPD Mother Multiple mebers of maternal family. - Diabetes Brother - Stroke Father - Breast Cancer Sister - Cancer Sister Lung. Uncle. Patient Allergies ALLERGIES Allergen Reactions - Bee Sting Swelling, Shortness of Breath - Aleve [Naproxen] Hives Current Medications Current Outpatient Prescriptions on File Prior to Visit: omeprazole (PRILOSEC) 20 mg capsule take 1 capsule by mouth every morning 1/2 HOUR BEFORE BREAKFAST oxybutynin ER (DITROPAN XL) 10 mg 24 hr tablet take 1 tablet by mouth once daily ---TO REPLACE DETROL gabapentin (NEURONTIN) 400 mg capsule take 3 capsules by mouth daily at bedtime rOPINIRole (REQUIP) 0.5 mg tablet take 2 tablets by mouth at bedtime atorvastatin (LIPITOR) 10 mg tablet take 1 tablet by mouth daily at bedtime colchicine 0.6 mg tablet Take 1 tablet by mouth twice daily. buPROPion SR (ZYBAN SR; WELLBUTRIN SR) 150 mg 12 hr tablet Take one tab a day for 2 weeks then go to taking one twice a day. umeclidinium-vilanterol (ANORO ELLIPTA) 62.5-25 mcg/actuation inhaler Inhale 1 Inhalation as instructed once daily. amLODIPine (NORVASC) 5 mg tablet take 1 tablet by mouth once daily benazepril (LOTENSIN) 20 mg tablet Take 1 tablet by mouth once daily. baclofen (LIORESAL) 20 mg tablet Take one tab 2-3 times a day for muscle spasms ibuprofen (MOTRIN) 800 mg tablet Take 1 tablet by mouth every 8 hours as needed for Pain. Take with food. cholecalciferol, vitamin D3, 4,000 unit cap Take 1 capsule by mouth once daily. EPINEPHrine 0.3 mg/0.3 mL auto-injector Inject 0.3 mL intramuscularly as needed. aspirin, enteric coated (ADULT LOW DOSE ASPIRIN) 81 mg EC tablet Take 1 tablet by mouth once daily. No current facility-administered medications on file prior to visit. Social History Social History Marital status: Spouse name: Years of education: Number of children: Occupational History Occupation Employer Comment [employer], last done 2011 Social History Main Topics Smoking status: Current Every Day Smoker Packs/day: 2.00 Years: 37.00 Start date: 1976 Smokeless tobacco: Never Used Alcohol use: No Comment: None since 2011, TO 02/2016. Drug use: No Social History Narrative Tried Chantix and Nicotine patch. First morning cigarette right after going to the bathroom. Hardest cigarette to give up- morning cigarette. Once get coffee in the morning, it is one after another. Quit during hospitalization with delivery of baby for 1 week. Smoked during . Review of Symptoms REVIEW OF SYSTEMS GENERAL: No weight loss, malaise or fevers HEENT: Negative for frequent or significant headaches, significant change in vision, significant vision problems, significant ear problems or hearing loss, nasal discharge, or nose bleeds, sore throat, difficulty swallowing, mouth lesions, hoarseness. Gets tinnitus occasionally. NECK: Negative for lumps, goiter, pain and significant neck swelling RESPIRATORY: Negative for cough, hemoptysis. Breathing has been stable CARDIOVASCULAR: Negative for chest pain, leg swelling, hypertension, CHF or palpitations GI: No nausea, vomiting, or diarrhea, No heartburn or reflux symptoms and no blood. : No history of dysuria or blood MUSCULOSKELETAL: Negative for changes in typical joint pain or swelling, back pain or muscle pain. Gets cramping behind the knees some nights. SKIN: Negative for lesions, rash, and itching PSYCH: Negative for sleep disturbance, mood disorder and recent psychosocial stressors HEMATOLOGY/LYMPHOLOGY: some easy bruising and not always sure why or how. ENDOCRINE: Negative for cold or heat intolerance, polyuria, polydipsia and goiter NEURO: No history of headaches, syncope, paralysis, seizures or tremors EXAM: BP 122/74 Pulse 88 Resp 16 Ht 165.1 cm (5' 5) Wt 78 kg (172 lb) BMI 28.62 kg/m? General Appearance: Well appearing, alert, in no acute distress, well-hydrated, well nourished.. Skin: Skin color, texture, turgor normal, no suspicious rashes or lesions. Has some lipomas (bilateral medial elbows, upper right abdomen). Some bruises on her upper extremities which be be normal with being on an aspirin daily. Head: Normocephalic, no masses, lesions, tenderness or abnormalities. Eyes: Anicteric sclera. Pupils are equally round and reactive to light. Extraocular movements are intact. . Ears: External ears normal, canals clear. Nose/Sinuses: Nares normal, septum midline, mucosa normal, no drainage or sinus tenderness. Oropharynx: Lips, mucosa, and tongue normal, teeth and gums normal, oropharynx normal. Neck: Supple, no adenopathy; thyroid symmetric, normal size, no bruits. Lungs: Lungs clear to auscultation. No wheezing, rhonchi, rales. Heart: RRR without murmur, gallop, or rubs. No ectopy. Abdomen: Normal abdominal exam, Abdomen soft, non-tender. Bowel sounds normal. No masses, organomegaly. Extremities: No deformities, edema, skin discoloration. Musculoskeletal: Muscular strength intact, No joint swelling, deformity, or tenderness. Peripheral Pulses: Normal. Neurologic: Gait normal. Reflexes normal and symmetric. Sensation to light touch and crainal nerves 2-12 intact.. Health Maintenance List FECAL OCCULT BLOOD due on 09/12/2016 MAMMOGRAM due on 10/09/2017 PAP EVERY 5 YEARS due on 09/24/2020 HPV EVERY 5 YEARS due on 09/24/2020 DIABETES SCREEN due on 10/29/2020 LIPID SCREEN due on 09/16/2022 DTAP,TDAP,TD(2 - Td) due on 06/04/2026 ONE PNEUMOVAX PRIOR TO AGE 65 Completed INFLUENZA Completed HEPATITIS C SCREENING Completed Data reviewed Component Latest Ref Rng AND Units 09/16/2017 10/29/2017 Glucose 74 - 99 mg/dL 83 BUN 7 - 21 mg/dL 13 Creatinine 0.58 - 0.96 mg/dL 1.00 (H) Sodium 136 - 144 mmol/L 140 Potassium 3.7 - 5.1 mmol/L 4.7 Chloride 97 - 105 mmol/L 100 CO2 22 - 30 mmol/L 24 Anion Gap 9 - 18 mmol/L 16 Calcium 8.5 - 10.2 mg/dL 10.0 eGFR- >60 eGFR-All Other Races . 58 Cholesterol, Total <200 mg/dL 186 Triglyceride <150 mg/dL 151 (H) HDL Cholesterol >39 mg/dL 37 (L) LDL Cholesterol <100 mg/dL 119 (H) Non HDL Cholesterol <130 mg/dL 149 (H) Fasting Time hrs 12 VLDL Cholesterol <30 mg/dL 30 (H) TC:HDL Ratio <5.10 5.03 LDL:HDL Ratio <2.54 3.22 (H) Albumin 3.9 - 4.9 g/dL 4.1 Bilirubin, Total 0.2 - 1.3 mg/dL 0.4 Bilirubin, Conjug <0.2 mg/dL <0.2 Alkaline Phosphatase 32 - 117 U/L 87 AST 13 - 35 U/L 23 ALT 7 - 38 U/L 15 17 Protein, Total 6.3 - 8.0 g/dL 7.2 Vitamin D 25 Hydroxy 31.0 - 80.0 ng/mL 39.4 Magnesium 1.7 - 2.3 mg/dL 2.2 TSH 0.400 - 5.500 uU/mL 0.991 Free T4 0.9 - 1.7 ng/dL 1.5 A/P ASSESSMENT/PLAN: 1. Medicare annual wellness visit, subsequent - ICD9: V70.0, ICD10: Z00.00 (primary diagnosis) - Encouraged monthly Breast Self Exam - Follow up for annual exam in one year. 2. Essential hypertension - ICD9: 401.9, ICD10: I10 - good control - Continue current medication(s) - Recommended regular aerobic exercise. - Recommend home blood pressure monitoring, to bring results in on next visit - Goal of BP <140/90 3. Chronic obstructive pulmonary disease, unspecified COPD type (HCC) - ICD9: 496, ICD10: J44.9 - Cont current meds and f/u with pulm 4. Mixed hyperlipidemia - ICD9: 272.2, ICD10: E78.2 - good control - Continue current medication. - Encouraged following a low fat, low cholesterol diet. - Discussed the benefits of regular aerobic exercise and weight loss. - Encouraged following a low carbohydrate, healthy oil intake diet. 5. Gastroesophageal reflux disease without esophagitis - ICD9: 530.81, ICD10: K21.9 - Continue treatment with Prilosec 20 mg QD 6. Congestive heart failure, unspecified HF chronicity, unspecified heart failure type (HCC) - ICD9: 428.0, ICD10: I50.9 - Clinically stable. No changes and cont f/u with cardio 7. Pericardial effusion - ICD9: 423.9, ICD10: I31.3 - Clinically stable. No changes and cont f/u with cardio 8. Vitamin D deficiency - ICD9: 268.9, ICD10: E55.9 - Stable with replacement 9. Smoker - ICD9: 305.1, ICD10: F17.200 - Cessation encouraged. - Counseling was given focusing on the harmful effects of this addiction especially given the patient's medical condition(s) which will be worsened because of the chemicals in tobacco. - Counseling was given 3-4 minutes. 10. Chronic low back pain, unspecified back pain laterality, with sciatica presence unspecified - ICD9: 724.2, 338.29, ICD10: M54.5, G89.29 Chronic low back pain Discussed referral to spine surgery but has no interest in this avenue at this time. 11. Spinal stenosis of lumbar region, unspecified whether neurogenic claudication present - ICD9: 724.02, ICD10: M48.061 Chronic low back pain - See above 12. Lumbar foraminal stenosis - ICD9: 724.02, ICD10: M99.83 Chronic low back pain - See above 13. Lumbar facet arthropathy (HCC) - ICD9: 721.3, ICD10: M46.96 - As above 14. YEN positive - ICD9: 795.79, ICD10: R76.8 - cont with Rheum 15. Fibromyalgia - ICD9: 729.1, ICD10: M79.7 - Cont with Rheum. 16. Urge incontinence - ICD9: 788.31, ICD10: N39.41 - Cont oxybutynin. 17. Obesity (BMI 30.0-34.9) - ICD9: 278.00, ICD10: E66.9 - Patient to work on diet and exercise. 18. Screening for colon cancer - ICD9: V76.51, ICD10: Z12.11 Check - FECAL OCCULT BLOOD TEST 19. Encounter for screening mammogram for breast cancer - ICD9: V76.12, ICD10: Z12.31 Check - NROMA SCREENING 20. Bruising - ICD9: 924.9, ICD10: T14.8XXA Check - CBC + DIFF - PROTHROMBIN TIME/PT - ACTIVATED PTT f/u 6 months routine check has labs set up for Jan and Feb. Time with patient face to face was 40 min for [facility] and 10 min for medicare wellness. Tex Miller MD Referring Provider: TEX MILLER [[id number]] Allergies As of Date: 12/06/2017 Noted Allergy Reaction BEE STING 05/09/2013 7 - Swelling 12 - Shortness of Breath ALEVE (NAPROXEN) 05/09/2013 4 - Hives Date Reviewed: 12/06/2017 Reviewed by: Tex Miller - Fully Assessed Reason for Visit: Physical [83] Cmt: 6 month follow up Primary Visit Diagnosis:Medicare annual wellness visit, subsequent [Z00.00] Comment:last done: 12/06/2017 Other Visit Diagnoses:Essential hypertension [I10] Chronic obstructive pulmonary disease, unspecified COPD type (HCC) [J44.9] Mixed hyperlipidemia [E78.2] Gastroesophageal reflux disease without esophagitis [K21.9] Congestive heart failure, unspecified HF chronicity, unspecified heart failure type (HCC) [I50.9] Pericardial effusion [I31.3] Vitamin D deficiency [E55.9] Smoker [F17.200] Chronic low back pain, unspecified back pain laterality, with sciatica presence unspecified [M54.5, G89.29] Spinal stenosis of lumbar region, unspecified whether neurogenic claudication present [M48.061] Lumbar foraminal stenosis [M99.83] Lumbar facet arthropathy (HCC) [M46.96] YEN positive [R76.8] Fibromyalgia [M79.7] Urge incontinence [N39.41] Obesity (BMI 30.0-34.9) [E66.9] Screening for colon cancer [Z12.11] Encounter for screening mammogram for breast cancer [Z12.31] Bruising [T14.8XXA] Order(s):EPINEPHrine (EPIPEN) 0.3 mg/0.3 mL auto-injectorInject 0.3 mL intramuscularly as needed.Disp: 1 EachRfl: 1 NORMA SCREENING [[id number]] Order #: [id number] FUTURE FECAL OCCULT BLOOD TEST [SQIFOBT] Order #: [id number] FUTURE albuterol HFA (PROAIR HFA) 90 mcg/actuation inhalerInhale 2 Puffs as instructed every 6 hours as needed.Disp: Rfl: CBC + DIFF [SQCBCDIF] Order #: [id number] FUTURE PROTHROMBIN TIME/PT [SQPT] Order #: [id number] FUTURE ACTIVATED PTT [SQPTT] Order #: [id number] FUTURE Prescriptions as of 12/06/2017 Sig: EPINEPHRINE 0.3 MG/0.3 ML INJ* Inject 0.3 mL intramuscularly* OMEPRAZOLE 20 MG CAPSULE,DIONE* take 1 capsule by mouth every* OXYBUTYNIN CHLORIDE ER 10 MG * take 1 tablet by mouth once d* GABAPENTIN 400 MG CAPSULE take 3 capsules by mouth zahra* ROPINIROLE 0.5 MG TABLET take 2 tablets by mouth at be* ATORVASTATIN 10 MG TABLET take 1 tablet by mouth daily * COLCHICINE 0.6 MG TABLET Take 1 tablet by mouth twice * BUPROPION HCL SR 150 MG TABLE* Take one tab a day for 2 week* UMECLIDINIUM 62.5 MCG-VILANTE* Inhale 1 Inhalation as instru* AMLODIPINE 5 MG TABLET take 1 tablet by mouth once d* BENAZEPRIL 20 MG TABLET Take 1 tablet by mouth once d* BACLOFEN 20 MG TABLET Take one tab 2-3 times a day * IBUPROFEN 800 MG TABLET Take 1 tablet by mouth every * CHOLECALCIFEROL (VITAMIN D3) * Take 1 capsule by mouth once * ASPIRIN 81 MG TABLET,DELAYED * Take 1 tablet by mouth once d* ALBUTEROL SULFATE HFA 90 MCG/* Inhale 2 Puffs as instructed * Problem List As Of Date 12/06/2017 Noted Resolved Seasonal allergies [J30.2] Priority: B Routine gynecological examination [Z01.419] Priority: E More... Urge incontinence [N39.41] INVALID FOR* Priority: B Insomnia [G47.00] INVALID FOR* Priority: B Vitamin D deficiency [E55.9] INVALID FOR* Priority: A Smoker [F17.200] INVALID FOR* Priority: C More... Lipoma of buttock [D17.1] INVALID FOR* Priority: C More... More... Fibromyalgia [M79.7] INVALID FOR* Priority: B Essential hypertension [I10] INVALID FOR* Priority: A Chronic obstructive pulmonary disease (HCC) [J4*INVALID FOR* Priority: A More... Mixed hyperlipidemia [E78.2] INVALID FOR* Priority: A Gastroesophageal reflux disease without esophag*INVALID FOR* Priority: A Low back pain [M54.5] INVALID FOR* Priority: M More... Arthritis of both knees [M17.0] INVALID FOR* Priority: M More... Pericardial effusion [I31.3] INVALID FOR* Priority: A More... Carpal tunnel syndrome of left wrist [G56.02] INVALID FOR* Priority: M More... Obesity (BMI 35.0-39.9 without comorbidity) [E6*INVALID FOR*01/12/2017 Obesity (BMI 30.0-34.9) [E66.9] INVALID FOR* Priority: B More... Current use of proton pump inhibitor [Z79.899] INVALID FOR* More... Lumbar canal stenosis [M48.061] INVALID FOR* Priority: M More... Lumbar foraminal stenosis [M99.83] INVALID FOR* Priority: M Lumbar facet arthropathy (HCC) [M46.96] INVALID FOR* Priority: M CHF (congestive heart failure) (HCC) [I50.9] INVALID FOR* Priority: A More... YEN positive [R76.8] INVALID FOR* Priority: B More... Medicare annual wellness visit, subsequent [Z00*INVALID FOR* Priority: E More... Well adult exam [Z00.00] INVALID FOR* Priority: E More... Screening for colon cancer [Z12.11] INVALID FOR* Encounter for screening mammogram for breast ca*INVALID FOR* Prescriptions ordered this encounter Disp Refills Start End EPINEPHRINE 0.3 MG/0.3 ML INJECTION,* 1 Ea* 1 12/06/2017 Route: INTRAMUSCULA Sig: Inject 0.3 mL intramuscularly as needed. ALBUTEROL SULFATE HFA 90 MCG/ACTUATI* 12/06/2017 Class: Med Update Route: INHALATION Sig: Inhale 2 Puffs as instructed every 6 hours as needed. Medications Discontinued During This Encounter rOPINIRole (REQUIP) 0.5 mg tablet 60 t* 5 06/07/2017 12/06/2017 Sig: take 2 tablets by mouth before BEDTIME Disc: Duplicate Entry omeprazole (PRILOSEC) 20 mg capsule 30 c* 5 06/07/2017 12/06/2017 Sig: take 1 tablet by mouth daily 1/2 HOUR BEFORE BREAKFAST Disc: Duplicate Entry oxybutynin XL (DITROPAN XL) 5 mg 24 * 30 t* 5 10/11/2017 12/06/2017 Cmt: Please let patient know medication had to be changed from Detrol due to insurance. Sig: take 1 tablet by mouth once daily ---TO REPLACE DETROL Patient not taking: Reported on 12/06/2017 Disc: Duplicate Entry albuterol HFA (VENTOLIN HFA) 90 mcg/* 1 In* 6 06/10/2017 12/06/2017 Route: INHALATION Sig: Inhale 2 Puffs as instructed every 6 hours as needed for Wheezing/Shortness of Breath. Patient not taking: Reported on 12/06/2017 Disc: Not on Formulary EPINEPHrine 0.3 mg/0.3 mL auto-injec* 1 Ea* 1 03/05/2016 12/06/2017 Route: INTRAMUSCULAR Sig: Inject 0.3 mL intramuscularly as needed. Disc: Reason for discontinue is not on file. Disposition: Return in about 6 months (around 06/07/2018) for routine. Follow-up and Disposition History Recorded Letter Text Dear Cruz Jacobo: How to activate your [facility] [employer] Account 1. Visit the [employer] Signup page at [email or web address] 2. Identify yourself using your one-time use activation code: [email or web address] 3. Follow the on-screen prompts to choose your own secure username and password The following information will be necessary to access your account for the first time: Information needed for sign-up: Your custom activation code used one-time only for the initial account set-up. Your date of The last 4 digits of your social security number What to do next: Fill in the requested information on the Identify Yourself Form at [email or web address] , click Next. Create your login and password, choose a [employer] ID and password that will be easy for you to use, but impossible for anyone else to guess. Pick a security question that will assist you in the event you forget your password the next time you log-on. If you have difficulty activating your account, please call our [employer] helpline at [phone] or toll free at . We hope you enjoy using [employer]! Kindest Regards, [facility] [employer] Team Encounter Status:Closed by TEX MILLER on 12/06/17 ALT Collected: 10/29/2017 Status: F Source: [place] 9:15 AM [facility] REPOSITORY TYPE CODE TESTS RESULT OUT OF RANGE REFERENCE UNITS LAB ALT 7-38 U/L ALT 17 Performed By: #### ALT, BMP #### [facility] [address] [place] [address] BASIC METABOLIC PANL Collected: 10/29/2017 Status: F Source: [place] 9:15 AM [facility] REPOSITORY TYPE CODE TESTS RESULT OUT OF REFERENCE UNITS RANGE LAB GLU 74-99 mg/dL Glucose 87 Result Comment: The [place] Diabetes Association (ADA) provides guidance for cutoff values for fasting glucose and random glucose. The ADA defines fasting as no caloric intake for at least 8 hours. Fas ting plasma glucose results between 100 to 125 mg/dL indicate increased risk for diabetes (prediabetes). Fasting plasma glucose results greater than or equal to 126 mg/dL meet the criteria for diagnosis of diabetes. In the absence of unequivocal hyperglycemia, results should be confirmed by repeat testing. In a patient with classic symptoms of hyperglycemia or hyperglycemic crisis, random plasma glucose results greater than or equal to 200 mg/dL meet the criteria for diagnosis of diabetes. Reference: Standards of Medical Care in Diabetes 2016, [place] Diabetes Association. Diabetes Care. 2016.39(Suppl 1). LAB BUN 7-21 mg/dL BUN 11 LAB CRET 0.58-0.96 mg/dL Creatinine High 1.01 LAB NA 136-144 mmol/L Sodium 138 LAB K 3.7-5.1 mmol/L Potassium 4.5 LAB CL 97-105 mmol/L Chloride 99 LAB CO2 22-30 mmol/L CO2 26 LAB AGAP 9-18 mmol/L Anion Gap 13 LAB CA 8.5-10.2 mg/dL Calcium, Total 9.3 LAB GFRAA eGFR- Amer. >60 LAB GFRNAA . eGFR-All Other Races 57 Result Comment: eGFR (Estimated GFR) Units of measure: mL/min/1.73 meters squared eGFR is derived from the reexpressed MDRD Study equation using the following parameters: serum creatinine, age, gender and race. The creatinine assay has been calibrated to be traceable to IDMS. An eGFR <60 mL/min/1.73m2 for >3 months is consistent with chronic kidney disease. Refer to KDOQI guidelines for clinical interpretation. In patients with unstable renal function, e.g. those with acute kidney injury, the eGFR may not accurately reflect actual GFR. Performed By: #### ALT, BMP #### [facility] [address] [place], [place] [address] [place] CHEST W IVCON Observed: 09/16/2017 Status: F Source: [place] 10:07 AM [facility] REPOSITORY * * *Final Report* * * DATE OF EXAM: Sep 16 2017 10:07AM [facility] 0539 - CT CHEST W IVCON / PROCEDURE REASON: multiple diagnoses * * * * Physician Interpretation * * * * EXAMINATION: CHEST CT WITH CONTRAST Indication: Pericardial effusion (noninflammatory) Essential (primary) hypertension Encounter for screening for other disorder Technique: Spiral CT acquisition of the chest from the thoracic inlet to the upper abdomen following IV contrast. MQ: CTCW_4 Contrast: 50 mL Omnipaque [address] Dose-Length Product: 332 mGy*cm CT Dose Reduction Employed: Automated exposure control (AEC) Comparison: Type of study and date/time RESULT: Limitations: None. Lines, tubes, and devices: None. Lung parenchyma and pleura: Centrilobular emphysema predominantly in the upper lungs being cervical spine series. Punctate granuloma lateral LEFT apex (4:32). Transverse linear densities RIGHT and LEFT posterior lung base. No consolidation. No suspicious pulmonary nodule. No pleural effusion. Central airways are patent. Thoracic inlet, heart, and mediastinum: No lymphadenopathy in the axillary, mediastinal, or hilar regions. The thoracic aorta is normal in caliber. Dilatation of the main pulmonary artery which diameter about 3.7 cm. The cardiac chambers are normal in size. No coronary artery atherosclerotic calcifications are noted, although the study is not optimized for coronary assessment. There is a pericardial effusion with maximal axial thickness 1.6 cm. Bones and soft tissues: No destructive bone lesion. Chest wall is unremarkable. Upper abdomen: No abnormality in the imaged upper abdomen. IMPRESSION: Emphysema. Dilated main pulmonary artery consistent with chronic pulmonary arterial hypertension Mild basilar subsegmental atelectasis. Punctate calcified granuloma LEFT apex consistent with old granulomatous disease Pericardial effusion Tobacco Stemmer: BIRGIT Transcribe Date/Time: Sep 17 2017 2:26P Dictated by : JACK THORNE MD This examination was interpreted and the report reviewed and electronically signed by: JACK THORNE MD on Sep 17 2017 2:40PM EST [id number] Observed: 09/16/2017 Status: COMPLETED Source: [place] 9:42 AM [facility] REPOSITORY HNO ID: [id number] Author: Taylor Chavarria Ct Service: (none) Author Type: (none) Type: Progress Notes Filed: 09/16/2017 9:42 AM Note Text: Radiology Service Progress Note PATIENT NAME: Cruz Jacobo DATE OF SERVICE: September 16, 2017 TIME: 9:42 AM PATIENT IDENTITY VERIFICATION COMPLETED USING TWO (2) METHODS: Patient confirmed name verbally and Date of . PATIENT GENDER DATA: Female. status: : No status: NO. PATIENT RELEVANT IMPLANT DATA REVIEWED: Not Applicable CONTRAST INDUCED NEPHROPATHY RISK FACTORS: Not applicable CREATININE: Creatinine Date Value Ref Range Status 01/26/2017 0.97 (H) 0.58 - 0.96 mg/dL Final 01/26/2017 0.95 0.58 - 0.96 mg/dL Final 11/26/2016 0.85 0.58 - 0.96 mg/dL Final eGFR-All Other Races Date Value Ref Range Status 01/26/2017 60 . Final Comment: eGFR (Estimated GFR) Units of measure: mL/min/1.73 meters squared eGFR is derived from the reexpressed MDRD Study equation using the following parameters: serum creatinine, age, gender and race. The creatinine assay has been calibrated to be traceable to IDMS. An eGFR <60 mL/min/1.73m2 for >3 months is consistent with chronic kidney disease. Refer to KDOQI guidelines for clinical interpretation. In patients with unstable renal function, e.g. those with acute kidney injury, the eGFR may not accurately reflect actual GFR. eGFR- Date Value Ref Range Status 01/26/2017 >60 Final P.O.C.T. RESULTS: POC done: Yes, See Lab Tab September 16, 2017 RADIOLOGIST NOTIFIED?: No ALLERGIES: Reviewed and unchanged CONTRAST ALLERGY: NO. PERIPHERAL IV ACCESS: Ambulatory: IV type: A peripheral IV was started in the Left antecubital site with a Angio cath: 20 gauge., Site assessment: Clean,Dry and Intact, Site disposition Discontinued RADIOLOGY DEPARTMENT: CT; Exam(s) Completed: Chest SIGNED BY: Taylor Chavarria Ct September 16, 2017 9:42 AM BASIC METABOLIC PANL Collected: 09/16/2017 Status: F Source: [place] 8:42 AM [facility] REPOSITORY TYPE CODE TESTS RESULT OUT OF REFERENCE UNITS RANGE LAB GLU 74-99 mg/dL Glucose 83 Result Comment: The [place] Diabetes Association (ADA) provides guidance for cutoff values for fasting glucose and random glucose. The ADA defines fasting as no caloric intake for at least 8 hours. Fas ting plasma glucose results between 100 to 125 mg/dL indicate increased risk for diabetes (prediabetes). Fasting plasma glucose results greater than or equal to 126 mg/dL meet the criteria for diagnosis of diabetes. In the absence of unequivocal hyperglycemia, results should be confirmed by repeat testing. In a patient with classic symptoms of hyperglycemia or hyperglycemic crisis, random plasma glucose results greater than or equal to 200 mg/dL meet the criteria for diagnosis of diabetes. Reference: Standards of Medical Care in Diabetes 2016, [place] Diabetes Association. Diabetes Care. 2016.39(Suppl 1). LAB BUN 7-21 mg/dL BUN 13 LAB CRET 0.58-0.96 mg/dL Creatinine High 1.00 LAB NA 136-144 mmol/L Sodium 140 LAB K 3.7-5.1 mmol/L Potassium 4.7 LAB CL 97-105 mmol/L Chloride 100 LAB CO2 22-30 mmol/L CO2 24 LAB AGAP 9-18 mmol/L Anion Gap 16 LAB CA 8.5-10.2 mg/dL Calcium, Total 10.0 LAB GFRAA eGFR- Amer. >60 LAB GFRNAA . eGFR-All Other Races 58 Result Comment: eGFR (Estimated GFR) Units of measure: mL/min/1.73 meters squared eGFR is derived from the reexpressed MDRD Study equation using the following parameters: serum creatinine, age, gender and race. The creatinine assay has been calibrated to be traceable to IDMD. An eGFR <60 mL/min/1.73m2 for >3 months is consistent with chronic kidney disease. Refer to KDOQI guidelines for clinical interpretation. In patients with unstable renal function, e.g. those with acute kidney injury, the eGFR may not accurately reflect actual GFR. Performed By: #### BMP, TSH, FT4 #### [facility] [address] [place] [address] TSH Collected: 09/16/2017 Status: F Source: [place] 8:42 [facility] REPOSITORY TYPE CODE TESTS RESULT OUT OF RANGE REFERENCE UNITS LAB TSH 0.400-5.500 uU/mL TSH 0.991 Performed By: #### BMP, TSH, FT4 #### [facility] [address] [place] [address] FREE T4 Collected: 09/16/2017 Status: F Source: [place] 8:42 AM [facility] REPOSITORY TYPE CODE TESTS RESULT OUT OF RANGE REFERENCE UNITS LAB FT4 0.9-1.7 ng/dL Free T4 1.5 Performed By: #### BMP, TSH, FT4 #### [facility] [address] [place] [address] HEPATIC FUNCTN PANEL Collected: 09/16/2017 Status: F Source: [place] 8:42 AM [facility] REPOSITORY TYPE CODE TESTS RESULT OUT OF REFERENCE UNITS RANGE LAB ALB 3.9-4.9 g/dL Albumin 4.1 LAB TBIL 0.2-1.3 mg/dL Bilirubin, Total 0.4 LAB CBIL <0.2 mg/dL Bilirubin,Conjuga <0.2 thang LAB ALKP 32-117 U/L Alkaline Phosphatase 87 LAB AST 13-35 U/L AST 23 LAB ALT 7-38 U/L ALT 15 LAB TP 6.3-8.0 g/dL Protein, Total 7.2 Performed By: #### HFP, LIPB, MG1, VITD #### [facility] [address] [place] [id number] LIPID PANEL, BASIC Collected: 09/16/2017 Status: F Source: [place] 8:42 AM [facility] REPOSITORY TYPE CODE TESTS RESULT OUT OF REFERENCE UNITS RANGE LAB CHOL <200 mg/dL Cholesterol 186 Result Comment: <200 mg/dL, Desirable 200-239 mg/dL, Borderline high >239 mg/dL, High LAB TRIGLY <150 mg/dL Triglyceride High 151 Result Comment: <150 mg/dL, Normal 150-199 mg/dL, Borderline high 200-499 mg/dL, High >499 mg/dL, Very high LAB HDL >39 mg/dL HDL-Cholesterol Low 37 Result Comment: 40-59 mg/dL, Acceptable >59 mg/dL, High: Negative risk factor for coronary heart disease <40 mg/dL, Low: Positive risk factor for coronary heart disease LAB LDL <100 mg/dL LDL-Cholesterol High 119 Result Comment: <100 mg/dL, Optimal 100-129 mg/dL, Near optimal/above optimal 130-159 mg/dL, Borderline high 160-189 mg/dL, High >189 mg/dL, Very high Secondary prevention optimal LDL Cholesterol levels are recommended to be < 70 mg/dL LAB NONHDL <130 mg/dL Non HDL High Cholesterol 149 Result Comment: <130 mg/dL, Optimal 130-159 mg/dL, Near optimal/above optimal 160-189 mg/dL, Borderline high 190-219 mg/dL, High >219 mg/dL, Very high Secondary prevention optimal non HDL Cholesterol levels are recommended to be < 100 mg/dL LAB FT hrs Fasting Time 12 LAB VLDL <30 mg/dL High VLDL Cholesterol 30 LAB TCHDL <5.10 TC:HDL Ratio 5.03 LAB LDLHDL <2.54 High LDL:HDL Ratio 3.22 Result Comment: Reference: 1. National Cholesterol Education Program ATP III Guideline At-A-Glance Quick Desk Reference: National Heart, Lung, and Blood [place]. National Institutes of Health. 2001: NIH Publication No. 01-3305. 2. An International Atherosclerosis Society position paper: global recommendations for the management of dyslipidemia: executive summary, Atherosclerosis. 2014: 232(2):410-413. Performed By: #### HFP, LIPB, MG1, VITD #### [facility] [address] [place], [place] [address] MAGNESIUM Collected: 09/16/2017 Status: F Source: [place] 8:42 AM [facility] REPOSITORY TYPE CODE TESTS RESULT OUT OF REFERENCE UNITS RANGE LAB MG 1.7-2.3 mg/dL Magnesium 2.2 Performed By: #### HFP, LIPB, MG1, VITD #### [facility] [address] [place], [place] [address] VITAMIN D 25 HYDROXY Collected: 09/16/2017 Status: F Source: [place] 8:42 AM [facility] REPOSITORY TYPE CODE TESTS RESULT OUT OF REFERENCE UNITS RANGE LAB VITD 31.0-80.0 ng/mL Vitamin D 25 39.4 Hydroxy Result Comment: Classification of 25 [place] Vitamin D status: Insufficiency/Moderate Deficiency: < or = 30 ng/mL Sufficiency/Optimal Levels: 31 to 80 ng/mL Toxicity: > 100 ng/mL Test performed by chemiluminescent immunoassay. Performed By: #### HFP, LIPB, MG1, VITD #### [facility] [address] [place] [address] PROGRESS Observed: 09/02/2017 Status: COMPLETED Source: [place] 11:28 AM [facility] REPOSITORY HNO ID: [id number] Author: Eugenio Ruiz Service: (none) Author Type: Physician Type: Progress Notes Filed: 09/02/2017 11:28 AM Note Text: Pool - Orders placed. Please schedule. Eugenio Ruiz MD CNPN Observed: 09/02/2017 Status: COMPLETED Source: [place] 12:00 AM [facility] REPOSITORY Telephone (AGCARDWST) CRUZ JACOBO ([id number]) 1960 F Date Time Provider Department 09/02/17 EUGENIO RUIZ During your visit today, we recorded the following information about you: Smooth Wbeb RN, RN 09/02/2017 9:45 AM Signed ----- Message from Eugenio Ruiz sent at 09/02/2017 9:14 AM EST ----- Chest x-ray shows no evidence of tumor. This has relatively low sensitivity, however, and we will discuss with Dr. Miller whether we should obtain CT scan, given her unexplained pericardial effusion and history of smoking MD Smooth Wilder, RN, RN 09/02/2017 9:49 AM Signed Patient verbalizes understanding. Smooth Webb, RN, RN 09/02/2017 11:[address] Ruiz would like to proceed with CT scan, this has been ordered, please assist patient to schedule, thank you. Crystal Roper Smita PSR 09/02/2017 3:36 PM Signed Appointment made for CT scan on September 16, 2017 at 9:00 am, patient contacted and reminder sent out. Allergies As of Date: 09/02/2017 Noted Allergy Reaction BEE STING 05/09/2013 7 - Swelling 12 - Shortness of Breath ALEVE (NAPROXEN) 05/09/2013 4 - Hives Date Reviewed: 09/01/2017 Reviewed by: Jeanine (Florencia) Joan - Fully Assessed Reason for Visit: Results [95] Prescriptions as of 09/02/2017 Sig: AMLODIPINE 5 MG TABLET take 1 tablet by mouth once d* ACLIDINIUM BROMIDE 400 MCG/AC* Inhale 1 Puff as instructed t* ALBUTEROL SULFATE HFA 90 MCG/* Inhale 2 Puffs as instructed * BUDESONIDE-FORMOTEROL HFA 160* Inhale 2 Puffs as instructed * ROPINIROLE 0.5 MG TABLET take 2 tablets by mouth befor* ATORVASTATIN 10 MG TABLET Take 1 tablet by mouth daily * BENAZEPRIL 20 MG TABLET Take 1 tablet by mouth once d* OMEPRAZOLE 20 MG CAPSULE,DIONE* take 1 tablet by mouth daily * OXYBUTYNIN CHLORIDE ER 10 MG * Take 1 tablet by mouth once d* BACLOFEN 20 MG TABLET Take one tab 2-3 times a day * IBUPROFEN 800 MG TABLET Take 1 tablet by mouth every * GABAPENTIN 400 MG CAPSULE take 3 capsules by mouth zahra* CHOLECALCIFEROL (VITAMIN D3) * Take 1 capsule by mouth once * EPINEPHRINE 0.3 MG/0.3 ML INJ* Inject 0.3 mL intramuscularly* ASPIRIN 81 MG TABLET,DELAYED * Take 1 tablet by mouth once d* Problem List As Of Date 09/02/2017 Noted Resolved Seasonal allergies [J30.2] Priority: B Routine gynecological examination [Z01.419] Priority: E More... Abnormal sensation of leg [R20.9] INVALID FOR* Abnormal antinuclear antibody titer [R76.8] INVALID FOR* Abnormal EMG [R94.131] INVALID FOR* Urge incontinence [N39.41] INVALID FOR* Priority: B Insomnia [G47.00] INVALID FOR* Priority: B Vitamin D deficiency [E55.9] INVALID FOR* Priority: A Smoker [F17.200] INVALID FOR* Priority: C Lipoma of buttock [D17.1] INVALID FOR* Priority: C More... More... Fibromyalgia [M79.7] INVALID FOR* Priority: B Essential hypertension [I10] INVALID FOR* Priority: A Chronic obstructive pulmonary disease (HCC) [J4*INVALID FOR* Priority: A More... Mixed hyperlipidemia [E78.2] INVALID FOR* Priority: A Gastroesophageal reflux disease without esophag*INVALID FOR* Priority: A Leg pain, bilateral [M79.604, M79.605] INVALID FOR* Low back pain [M54.5] INVALID FOR* Priority: M More... 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 Left leg weakness [R29.898] INVALID FOR* Current use of proton pump inhibitor [Z79.899] INVALID FOR* Abnormal MRI, lumbar spine [R93.7] INVALID FOR* Encounter Status:Closed by SMOOTH WEBB on 09/02/17 XR CHEST 2V FRONTAL/LAT Observed: 09/01/2017 Status: F Source: [place] 11:39 [facility] RE[facility] * * *Final Report* * * DATE OF EXAM: Sep 01 2017 11:39AM [id number] [id number] - XR CHEST 2V FRONTAL/LAT / PROCEDURE REASON: Pericardial effusion (noninflammatory) * * * * Physician Interpretation * * * * EXAMINATION: CHEST RADIOGRAPH (2 VIEW FRONTAL and LATERAL) Clinical History: Pericardial effusion (noninflammatory) MQ: XC2_4 Comparison: None. RESULTS: Lines, tubes, and devices: None. Lung parenchyma and pleura: Lungs clear. No pleural fluid or pneumothorax. Thoracic inlet, heart, and mediastinum: Heart, mediastinum and pulmonary vessels unremarkable. Other: Upper abdomen unremarkable. No free air beneath diaphragm. No fracture. Degenerative change of spine. IMPRESSION: No acute abnormality. Tobacco Stemmer: PSCAnabela Transcribe Date/Time: Sep 01 2017 6:59P Dictated by : PETER SHAW MD This examination was interpreted and the report reviewed and electronically signed by: PETER SHAW MD on Sep 01 2017 6:59PM EST [id number] Observed: 09/01/2017 Status: COMPLETED Source: [place] 11:29 AM [facility] REPOSITORY HNO ID: [id number] Author: Meche Abrams (Tech) Service: (none) Author Type: Adjunct Professor Of English Type: Progress Notes Filed: 09/01/2017 11:34 AM Note Text: Radiology Service Progress Note PATIENT NAME: Cruz Jacobo DATE OF SERVICE: September 01, 2017 TIME: 11:29 AM PATIENT IDENTITY VERIFICATION COMPLETED USING TWO (2) METHODS: Patient confirmed name verbally and Date of . PATIENT GENDER DATA: Female. status: : No status: NO. PATIENT RELEVANT IMPLANT DATA REVIEWED: Not Applicable RADIOLOGY DEPARTMENT: General X-ray: Exam(s) Completed: Chest X-Ray PERIPHERAL IV DATA: Not applicable SIGNED BY: Meche Mathis September 01, 2017 11:29 AM PROGRESS Observed: 09/01/2017 Status: COMPLETED Source: [place] 11:02 AM [facility] REPOSITORY HNO ID: [id number] Author: Eugenio Ruiz Service: (none) Author Type: Physician Type: Progress Notes Filed: 09/01/2017 5:17 PM Note Text: PERTINENT CARDIAC HISTORY Pericardial effusion - recurrent, etiology? HTN HL Pulmonary hypertension - mild RV dilatation Tobacco use ADHERENCE TO GUIDELINES EDWARD-I or ARB for HF with prior LVEF<40 (NQF 0081) - N/A ASA or Plavix for ASHD (NQF 0067) - met Beta adam for ASHD with prior PA or prior LVEF<40 (NQF 0070) - N/A Beta adam for HF with prior LVEF<40 (NQF 0083) - N/A EDWARD-I or ARB for ASHD with DM or prior LVEF<40 (NQF 0066) - N/A Statin therapy for ASHD or FHL or DM - met BMI documented and plan if >25 (NQF 0421) - lifestyle recommendation form Tobacco use screening and referral (NQF 0028) - lifestyle recommendation form Recommendation for whole food, plant based diet - lifestyle recommendation form CLINICAL IMPRESSION/PLAN: Cruz Jacobo has pericardial effusion of unclear etiology. She is currently not on colchicine. We will repeat her echocardiogram with attention to the pericardial effusion. She has not had a chest x-ray in recent years and is a heavy smoker. Chest x-ray will be ordered. Will also consider CT scan in consultation with primary care. I've asked her to continue her current medication and watch blood pressure. I will see her in 6 months or as needed. She has been strongly advised to stop smoking. Written and verbal health teaching given to patient, patient verbalizes understanding and agrees with treatment plan. This note was generated using linkedü voice recognition system, and there may be some incorrect words, spellings, and punctuation that were not noted in checking the note before saving. DIAGNOSIS FOR VISIT: Pericardial effusion Hypertension HISTORY OF PRESENT ILLNESS Cruz Jacobo is a 56-year-old woman with previous history of pericardial effusion , right ventricular enlargement, mild pulmonary hypertension . She has a prior patient of Dr. Waggoner and desires to follow-up in this office. She has been treated with colchicine for recurrent pericardial effusion without clinical tamponade. She has had no pleuritic pain. She's been off colchicine for the last 2 months. She reports stable exercise tolerance. She's had no chest tightness. She's had minimal edema. She denies syncope, TIAs, amaurosis and claudication. She has occasional palpitations. She describes a sensation that her heart is faster than normal. There is no sensation of irregularity or sudden onset or offset. There is no previous history of thyroid disease. She has been told in the past that she had some of the markers for lupus, but her blood work has not suggested any autoimmune disease or inflammation. ALLERGIES: ALLERGIES Allergen Reactions - Bee Sting Swelling, Shortness of Breath - Aleve [Naproxen] Hives CURRENT OUTPATIENT MEDICATIONS: amLODIPine (NORVASC) 5 mg tablet take 1 tablet by mouth once daily aclidinium bromide (TUDORZA PRESSAIR) 400 mcg/actuation aepb inhaler Inhale 1 Puff as instructed twice daily. albuterol HFA (VENTOLIN HFA) 90 mcg/actuation inhaler Inhale 2 Puffs as instructed every 6 hours as needed for Wheezing/Shortness of Breath. budesonide-formoterol (SYMBICORT) 160-4.5 mcg/actuation inhaler Inhale 2 Puffs as instructed twice daily. rOPINIRole (REQUIP) 0.5 mg tablet take 2 tablets by mouth before BEDTIME atorvastatin (LIPITOR) 10 mg tablet Take 1 tablet by mouth daily at bedtime. benazepril (LOTENSIN) 20 mg tablet Take 1 tablet by mouth once daily. omeprazole (PRILOSEC) 20 mg capsule take 1 tablet by mouth daily 1/2 HOUR BEFORE BREAKFAST oxybutynin XL (DITROPAN XL) 10 mg 24 hr tablet Take 1 tablet by mouth once daily. baclofen (LIORESAL) 20 mg tablet Take one tab 2-3 times a day for muscle spasms ibuprofen (MOTRIN) 800 mg tablet Take 1 tablet by mouth every 8 hours as needed for Pain. Take with food. gabapentin (NEURONTIN) 400 mg capsule take 3 capsules by mouth daily at bedtime cholecalciferol, vitamin D3, 4,000 unit cap Take 1 capsule by mouth once daily. EPINEPHrine 0.3 mg/0.3 mL auto-injector Inject 0.3 mL intramuscularly as needed. aspirin, enteric coated (ADULT LOW DOSE ASPIRIN) 81 mg EC tablet Take 1 tablet by mouth once daily. PAST MEDICAL HISTORY Diagnosis Date - Cancer (HCC) - COPD (chronic obstructive pulmonary disease) (HCC) - Fibromyalgia 03/09/2014 - HTN (hypertension) - Hyperlipidemia 01/30/2014 - Insomnia 09/20/2013 - Lipoma of buttock 01/25/2014 Left glut - Low back pain 05/09/2013 - Routine gynecological examination Dr. Arreola - Seasonal allergies - Smoker 01/25/2014 - Substance abuse - Urge incontinence 06/22/2013 - Vitamin D deficiency 01/25/2014 PAST SURGICAL HISTORY Procedure Laterality Date - STRESS TEST 08/28/2014 NL - HERLINDA W/WO REMOVAL TUBE OVARY HERLINDA-BSO - TONSILLECTOMY HX - [facility] DELIVERY SCHEDULING ORDER 2002 FAMILY HISTORY Problem Relation Age of Onset - Coronary Artery Disease Mother - Diabetes Mother - Headache Mother - Hypertension Mother - COPD Mother Multiple mebers of maternal family. - Diabetes Brother - Stroke Father - Breast Cancer Sister - Cancer Sister Lung. Uncle. Social History Marital status: Spouse name: Years of education: Number of children: Occupational History Occupation Employer Comment [employer], last done 2011 Social History Main Topics Smoking status: Current Every Day Smoker Packs/day: 2.00 Years: 37.00 Start date: 1976 Smokeless status: Never Used Alcohol use: No Comment: None since 2011, TO 02/2016. Drug use: No Social History Narrative Tried Chantix and Nicotine patch. First morning cigarette right after going to the bathroom. Hardest cigarette to give up- morning cigarette. Once get coffee in the morning, it is one after another. Quit during hospitalization with delivery of baby for 1 week. Smoked during . REVIEW OF SYSTEMS: General: No chills, fever, weight loss, night sweats. Respiratory: No productive cough. Cardiac: As noted above. GI: No melena. : No dysuria. Musculoskeletal: No myalgias. PHYSICAL EXAMINATION: S/he is alert and in no distress. VITAL SIGNS: BP 124/81 Pulse 94 Wt 182 lb 11.2 oz (82.9kg) SHEENT: Skin is warm and dry. No xanthelasmas appreciated. Pharynx is benign. There is no oral cyanosis. Neck: supple. No adenopathy or thyroid enlargement. Chest: Clear to percussion and auscultation. Trachea is midline. Air entry is equal. There is no chest wall tenderness. Cardiac: Regular rhythm. S1 and S2 are normal. PMI is nondisplaced. There are no murmurs, rubs or gallops. No click is heard. Carotids are brisk without bruits. JVP is less than 10 cm. Abdomen: Soft and nontender. There are no pulsatile masses or bruits. No liver enlargement. Bowel sounds are active. Extremities: No edema. Pulses are intact and symmetrical. No clubbing or cyanosis. No femoral bruits. Neurologic: Grossly normal motor and sensory. S/he is alert and oriented x4. Recent labs were reviewed and prior records examined. Echocardiogram has variably shown small to moderate sized effusions. She has a dyslipidemia with LDL as high as 173. Most recent LDL 1 therapy was 78. I do not see any abnormal inflammatory markers. EKG shows sinus rhythm. There is incomplete right bundle branch block. There is no significant change from 08/28/14. Renal function is normal. TSH was normal. Follow-up labs are due. Electronically Signed: Eugenio Ruiz MD September 01, 2017 11:02 AM CC:Tex Miller MD CNOV Observed: 09/01/2017 Status: COMPLETED Source: [facility] 10:30 AM CLINIC OTHER [place] REPOSITORY Office Visit (AGCARDWST) CRUZ JACOBO ([id number]) 1960 F Date Time Provider Department 09/01/17 10:30 AM EUGENIO RUIZ AGCARDWST During your visit today, we recorded the following information about you: Pulse Blood pressure Weight 94/minute 124/81 82.9 kg Eugenio Ruiz MD 09/01/2017 5:17 PM Signed PERTINENT CARDIAC HISTORY Pericardial effusion - recurrent, etiology? HTN HL Pulmonary hypertension - mild RV dilatation Tobacco use ADHERENCE TO GUIDELINES EDWARD-I or ARB for HF with prior LVEFANDlt;40 (NQF 0081) - N/A ASA or Plavix for ASHD (NQF 0067) - met Beta adam for ASHD with prior PA or prior LVEFANDlt;40 (NQF 0070) - N/A Beta adam for HF with prior LVEFANDlt;40 (NQF 0083) - N/A EDWARD-I or ARB for ASHD with DM or prior LVEFANDlt;40 (NQF 0066) - N/A Statin therapy for ASHD or FHL or DM - met BMI documented and plan if ANDgt;25 (NQ 0421) - lifestyle recommendation form Tobacco use screening and referral ([facility] 0028) - lifestyle recommendation form Recommendation for whole food, plant based diet - lifestyle recommendation form CLINICAL IMPRESSION/PLAN: Cruz Jacobo has pericardial effusion of unclear etiology. She is currently not on colchicine. We will repeat her echocardiogram with attention to the pericardial effusion. She has not had a chest x-ray in recent years and is a heavy smoker. Chest x-ray will be ordered. Will also consider CT scan in consultation with primary care. I've asked her to continue her current medication and watch blood pressure. I will see her in 6 months or as needed. She has been strongly advised to stop smoking. Written and verbal health teaching given to patient, patient verbalizes understanding and agrees with treatment plan. This note was generated using linkedü voice recognition system, and there may be some incorrect words, spellings, and punctuation that were not noted in checking the note before saving. DIAGNOSIS FOR VISIT: Pericardial effusion Hypertension HISTORY OF PRESENT ILLNESS Cruz Jacobo is a 56-year-old woman with previous history of pericardial effusion , right ventricular enlargement, mild pulmonary hypertension . She has a prior patient of Dr. Waggoner and desires to follow-up in this office. She has been treated with colchicine for recurrent pericardial effusion without clinical tamponade. She has had no pleuritic pain. She's been off colchicine for the last 2 months. She reports stable exercise tolerance. She's had no chest tightness. She's had minimal edema. She denies syncope, TIAs, amaurosis and claudication. She has occasional palpitations. She describes a sensation that her heart is faster than normal. There is no sensation of irregularity or sudden onset or offset. There is no previous history of thyroid disease. She has been told in the past that she had some of the markers for lupus, but her blood work has not suggested any autoimmune disease or inflammation. ALLERGIES: ALLERGIES Allergen Reactions - Bee Sting Swelling, Shortness of Breath - Aleve [Naproxen] Hives CURRENT OUTPATIENT MEDICATIONS: amLODIPine (NORVASC) 5 mg tablet take 1 tablet by mouth once daily aclidinium bromide (TUDORZA PRESSAIR) 400 mcg/actuation aepb inhaler Inhale 1 Puff as instructed twice daily. albuterol HFA (VENTOLIN HFA) 90 mcg/actuation inhaler Inhale 2 Puffs as instructed every 6 hours as needed for Wheezing/Shortness of Breath. budesonide-formoterol (SYMBICORT) 160-4.5 mcg/actuation inhaler Inhale 2 Puffs as instructed twice daily. rOPINIRole (REQUIP) 0.5 mg tablet take 2 tablets by mouth before BEDTIME atorvastatin (LIPITOR) 10 mg tablet Take 1 tablet by mouth daily at bedtime. benazepril (LOTENSIN) 20 mg tablet Take 1 tablet by mouth once daily. omeprazole (PRILOSEC) 20 mg capsule take 1 tablet by mouth daily 1/2 HOUR BEFORE BREAKFAST oxybutynin XL (DITROPAN XL) 10 mg 24 hr tablet Take 1 tablet by mouth once daily. baclofen (LIORESAL) 20 mg tablet Take one tab 2-3 times a day for muscle spasms ibuprofen (MOTRIN) 800 mg tablet Take 1 tablet by mouth every 8 hours as needed for Pain. Take with food. gabapentin (NEURONTIN) 400 mg capsule take 3 capsules by mouth daily at bedtime cholecalciferol, vitamin D3, 4,000 unit cap Take 1 capsule by mouth once daily. EPINEPHrine 0.3 mg/0.3 mL auto-injector Inject 0.3 mL intramuscularly as needed. aspirin, enteric coated (ADULT LOW DOSE ASPIRIN) 81 mg EC tablet Take 1 tablet by mouth once daily. PAST MEDICAL HISTORY Diagnosis Date - Cancer (HCC) - COPD (chronic obstructive pulmonary disease) (HCC) - Fibromyalgia 03/09/2014 - HTN (hypertension) - Hyperlipidemia 01/30/2014 - Insomnia 09/20/2013 - Lipoma of buttock 01/25/2014 Left glut - Low back pain 05/09/2013 - Routine gynecological examination Dr. Arreola - Seasonal allergies - Smoker 01/25/2014 - Substance abuse - Urge incontinence 06/22/2013 - Vitamin D deficiency 01/25/2014 PAST SURGICAL HISTORY Procedure Laterality Date - STRESS TEST 08/28/2014 NL - HERLINDA W/WO REMOVAL TUBE OVARY HERLINDA-BSO - TONSILLECTOMY HX - [facility] DELIVERY SCHEDULING ORDER 2002 FAMILY HISTORY Problem Relation Age of Onset - Coronary Artery Disease Mother - Diabetes Mother - Headache Mother - Hypertension Mother - COPD Mother Multiple mebers of maternal family. - Diabetes Brother - Stroke Father - Breast Cancer Sister - Cancer Sister Lung. Uncle. Social History Marital status: Spouse name: Years of education: Number of children: Occupational History Occupation Employer Comment [employer], last done 2011 Social History Main Topics Smoking status: Current Every Day Smoker Packs/day: 2.00 Years: 37.00 Start date: 1976 Smokeless status: Never Used Alcohol use: No Comment: None since 2011, TO 02/2016. Drug use: No Social History Narrative Tried Chantix and Nicotine patch. First morning cigarette right after going to the bathroom. Hardest cigarette to give up- morning cigarette. Once get coffee in the morning, it is ANDquot;one after anotherANDquot;. Quit during hospitalization with delivery of baby for 1 week. Smoked during . REVIEW OF SYSTEMS: General: No chills, fever, weight loss, night sweats. Respiratory: No productive cough. Cardiac: As noted above. GI: No melena. : No dysuria. Musculoskeletal: No myalgias. PHYSICAL EXAMINATION: S/he is alert and in no distress. VITAL SIGNS: BP 124/81 Pulse 94 Wt 182 lb 11.2 oz (82.9kg) SHEENT: Skin is warm and dry. No xanthelasmas appreciated. Pharynx is benign. There is no oral cyanosis. Neck: supple. No adenopathy or thyroid enlargement. Chest: Clear to percussion and auscultation. Trachea is midline. Air entry is equal. There is no chest wall tenderness. Cardiac: Regular rhythm. S1 and S2 are normal. PMI is nondisplaced. There are no murmurs, rubs or gallops. No click is heard. Carotids are brisk without bruits. JVP is less than 10 cm. Abdomen: Soft and nontender. There are no pulsatile masses or bruits. No liver enlargement. Bowel sounds are active. Extremities: No edema. Pulses are intact and symmetrical. No clubbing or cyanosis. No femoral bruits. Neurologic: Grossly normal motor and sensory. S/he is alert and oriented x4. Recent labs were reviewed and prior records examined. Echocardiogram has variably shown small to moderate sized effusions. She has a dyslipidemia with LDL as high as 173. Most recent LDL 1 therapy was 78. I do not see any abnormal inflammatory markers. EKG shows sinus rhythm. There is incomplete right bundle branch block. There is no significant change from 08/28/14. Renal function is normal. TSH was normal. Follow-up labs are due. Electronically Signed: Eugenio Ruiz MD September 01, 2017 11:02 AM CC:MD Eugenio Bonds MD 09/01/2017 11:02 AM Signed LIFESTYLE CHANGE A healthy lifestyle is the most important component of your overall treatment plan. Please give serious thought to the following areas and commit to making residential changes. EAT A WHOLE FOOD, PLANT BASED DIET The nutrition your body gets is more important than the medicine you take. What matters most is the overall way you eat. We encourage you to minimize the use of animal products (which include dairy and all meats except fatty fish) and use whole, unprocessed plant foods to provide your protein, vitamins and other nutrients. We have a lot of information to share with you on this topic. We also hold Shared Medical Appointments, where you can come visit with Dr. Ruiz in the company of other patients and spend over an hour talking about the challenges of changing the way you eat. This is not a ANDquot;dietANDquot;. It is a way of life that you will keep with you. EXERCISE REGULARLY It is not important to spend hours in the gym, lifting weights and perspiring heavily. A total of 2-3 hours per week of aerobic (causing you to be moderately short of breath) exercise is sufficient to improve your health. Talk to us before you begin a new exercise program, if you have heart disease or experience shortness of breath or chest pain. REDUCE STRESS Chronic emotional and physical stress leads to disease. Ways of reducing stress include meditation, visualization, prayer, yoga and other forms of relaxation therapy. Consistency is the hayes. Find a technique that works for you and do it every day. CULTIVATE RELATIONSHIPS Loneliness and isolation have a major negative impact on health. Seek out others who can love, care for and nurture you. Avoid hurtful relationships. MAINTAIN IDEAL BODY WEIGHT The best way to do this is to do all the things above. Our bodies naturally find the right weight if we keep moving and feed ourselves the right food. If your BMI is greater than 25, we strongly recommend a referral to a weight management program. Please speak to us or your family physician about available programs. AVOID NICOTINE IN ALL FORMS This includes all tobacco products, whether chewed, smoked, vaped, or rubbed on the skin. Smoking cessation programs, which can make use of tobacco substitutes, medications to suppress cravings and behavior management, are available. Please contact your family physician about programs in your area. Eugenio Ruiz MD 09/02/2017 11:28 AM Addendum Pool - Orders placed. Please schedule. MD Eugenio Wilder MD 09/02/2017 11:28 AM Signed Addended by: EUGENIO RUIZ MD on: 09/02/2017 11:28 AM Modules accepted: Orders Eugenio Ruiz MD 09/02/2017 11:31 AM Signed Addended by: EUGENIO RUIZ MD on: 09/02/2017 11:31 AM Modules accepted: Orders, SmartSet Referring Provider: EUGENIO RUIZ [[id number]] Allergies As of Date: 09/01/2017 Noted Allergy Reaction BEE STING 05/09/2013 7 - Swelling 12 - Shortness of Breath ALEVE (NAPROXEN) 05/09/2013 4 - Hives Date Reviewed: 09/01/2017 Reviewed by: Jeanine SchofieldHeat Plant Specialist) oJan - Fully Assessed Reason for Visit: Recheck [92] Primary Visit Diagnosis:Pericardial effusion (noninflammatory) [I31.3] Other Visit Diagnoses:Hypertension, essential [I10] Screening for nephropathy [Z13.89] Order(s):ECG B/O W INTERP (MED OFFICE) [ECG06] Order #: [id number] ECHO [016351] Order #: [id number]: 1 FUTURE XR CHEST 2V FRONTAL/LAT [1148381] Order #: [id number] FUTURE BASIC METABOLIC PNL [SQBMP] Order #: [id number] FUTURE TSH BLD [SQTSH] Order #: [id number] FUTURE T4 FREE/FREE THYROX [SQFT4] Order #: [id number] FUTURE CREATININE BLD [SQCRET] Order #: [id number] FUTURE CT CHEST W IVCON [0721420] Order #: [id number] FUTURE iv contrast (radiology procedure)CT Chest W -Inject, intravenously, once for 1 dose.No IV access, insert saline lock prior to the beginning of sedation, infusion, injection of imaging exam. Discontinue saline lock post exam. If Pt. has a central line or IVAD, may access for administration according to line specific nursing protocol. Once exam is complete flush line and de- access according to line specific nursing protocol in the CT contrast administration guidelines link.Disp: 1 EachRfl: 0 Prescriptions as of 09/01/2017 Sig: IV CONTRAST (RADIOLOGY PROCED* CT Chest W -Inject, intraveno* AMLODIPINE 5 MG TABLET take 1 tablet by mouth once d* ACLIDINIUM BROMIDE 400 MCG/AC* Inhale 1 Puff as instructed t* ALBUTEROL SULFATE HFA 90 MCG/* Inhale 2 Puffs as instructed * BUDESONIDE-FORMOTEROL HFA 160* Inhale 2 Puffs as instructed * ROPINIROLE 0.5 MG TABLET take 2 tablets by mouth befor* ATORVASTATIN 10 MG TABLET Take 1 tablet by mouth daily * BENAZEPRIL 20 MG TABLET Take 1 tablet by mouth once d* OMEPRAZOLE 20 MG CAPSULE,DIONE* take 1 tablet by mouth daily * OXYBUTYNIN CHLORIDE ER 10 MG * Take 1 tablet by mouth once d* BACLOFEN 20 MG TABLET Take one tab 2-3 times a day * IBUPROFEN 800 MG TABLET Take 1 tablet by mouth every * GABAPENTIN 400 MG CAPSULE take 3 capsules by mouth zahra* CHOLECALCIFEROL (VITAMIN D3) * Take 1 capsule by mouth once * EPINEPHRINE 0.3 MG/0.3 ML INJ* Inject 0.3 mL intramuscularly* ASPIRIN 81 MG TABLET,DELAYED * Take 1 tablet by mouth once d* Problem List As Of Date 09/01/2017 Noted Resolved Seasonal allergies [J30.2] Priority: B Routine gynecological examination [Z01.419] Priority: E More... Abnormal sensation of leg [R20.9] INVALID FOR* Abnormal antinuclear antibody titer [R76.8] INVALID FOR* Abnormal EMG [R94.131] INVALID FOR* Urge incontinence [N39.41] INVALID FOR* Priority: B Insomnia [G47.00] INVALID FOR* Priority: B Vitamin D deficiency [E55.9] INVALID FOR* Priority: A Smoker [F17.200] INVALID FOR* Priority: C Lipoma of buttock [D17.1] INVALID FOR* Priority: C More... More... Fibromyalgia [M79.7] INVALID FOR* Priority: B Essential hypertension [I10] INVALID FOR* Priority: A Chronic obstructive pulmonary disease (HCC) [J4*INVALID FOR* Priority: A More... Mixed hyperlipidemia [E78.2] INVALID FOR* Priority: A Gastroesophageal reflux disease without esophag*INVALID FOR* Priority: A Leg pain, bilateral [M79.604, M79.605] INVALID FOR* Low back pain [M54.5] INVALID FOR* Priority: M More... 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 Left leg weakness [R29.898] INVALID FOR* Current use of proton pump inhibitor [Z79.899] INVALID FOR* Abnormal MRI, lumbar spine [R93.7] INVALID FOR* Other instructions from your clinician: LIFESTYLE CHANGE A healthy lifestyle is the most important component of your overall treatment plan. Please give serious thought to the following areas and commit to making residential changes. EAT A WHOLE FOOD, PLANT BASED DIET The nutrition your body gets is more important than the medicine you take. What matters most is the overall way you eat. We encourage you to minimize the use of animal products (which include dairy and all meats except fatty fish) and use whole, unprocessed plant foods to provide your protein, vitamins and other nutrients. We have a lot of information to share with you on this topic. We also hold Shared Medical Appointments, where you can come visit with Dr. Ruiz in the company of other patients and spend over an hour talking about the challenges of changing the way you eat. This is not a diet. It is a way of life that you will keep with you. EXERCISE REGULARLY It is not important to spend hours in the gym, lifting weights and perspiring heavily. A total of 2-3 hours per week of aerobic (causing you to be moderately short of breath) exercise is sufficient to improve your health. Talk to us before you begin a new exercise program, if you have heart disease or experience shortness of breath or chest pain. REDUCE STRESS Chronic emotional and physical stress leads to disease. Ways of reducing stress include meditation, visualization, prayer, yoga and other forms of relaxation therapy. Consistency is the hayes. Find a technique that works for you and do it every day. CULTIVATE RELATIONSHIPS Loneliness and isolation have a major negative impact on health. Seek out others who can love, care for and nurture you. Avoid hurtful relationships. MAINTAIN IDEAL BODY WEIGHT The best way to do this is to do all the things above. Our bodies naturally find the right weight if we keep moving and feed ourselves the right food. If your BMI is greater than 25, we strongly recommend a referral to a weight management program. Please speak to us or your family physician about available programs. AVOID NICOTINE IN ALL FORMS This includes all tobacco products, whether chewed, smoked, vaped, or rubbed on the skin. Smoking cessation programs, which can make use of tobacco substitutes, medications to suppress cravings and behavior management, are available. Please contact your family physician about programs in your area. Prescriptions ordered this encounter Disp Refills Start End IV CONTRAST (RADIOLOGY PROCEDURE) 1 Ea* 0 09/02/2017 09/03/2017 Class: In Office Sig: CT Chest W -Inject, intravenously, once for 1 dose.No IV access, insert saline lock prior to the beginning of sedation, infusion, injection of imaging exam. Discontinue saline lock post exam. If Pt. has a central line or IVAD, may access for administration according to line specific nursing protocol. Once exam is complete flush line and de-access according to line specific nursing protocol in the CT contrast administration guidelines link. Follow-up and Disposition History Recorded Encounter Status:Closed by EUGENIO RUIZ MD on 09/01/17 ALLERGIES ALLERGIES DATE TYPE / CODE NAME / CODE REACTION SEVERITY SOURCE 04/07/2018 Drug naproxen/A86602 Rash Unknown [facility]416 2380(RXNORM) [facility] 207036(SN Repository ED CT) 04/07/2018 Drug bee venom Shortness of Unknown [facility] Allergy/416 protein (honey breath Hospital 732862(SN bee)/[id number] Repository ED CT) (RXNORM) 05/09/2013 Environ/420 BEE STING SWELLING High [facility] 035776(SNOM Other [place] ED CT) Repository 05/09/2013 DRUG NAPROXEN HIVES Med [facility] INGREDI/419 Other [place] 911339(SNOM Repository ED CT) NG/48569167 BEE STING [facility] 6(SNOMED Health System CT) Repository NG/35749664 NAPROXEN [facility] 6(SNOMED [facility] CT) Repository ENCOUNTERS ENCOUNTERS ADMIT/DISCHARGE ACCOUNT NUMBER ADMITTING ENCOUNTER LOCATION SOURCE CLASS 07/21/2018 [id number] Ambulatory [facility] ding: Repository 07/06/2018/ [id number] Ambulatory [facility] 019 [facility] Main [place] Repository 06/27/2018/ [id number] Ambulatory [facility] 018 [facility] Main [place] Repository 06/22/2018/ [id number] [facility] 018 MAYKEL R [facility] Main [place] Repository 06/16/2018/ [id number] Ambulatory [address] ding:WC Repository 06/09/2018/ [id number] Ambulatory [facility] 018 [facility] Main [place] Repository 06/08/2018/ [id number] Ambulatory [place] 018 [facility] Main [place] Repository 06/08/2018/ [id number] Ambulatory [facility] 018 [facility] Main [place] Repository 06/08/2018/ [id number] Ambulatory [facility] 018 [facility] [place] Repository 06/08/2018 [id number] Ambulatory Roth [facility] Main [place] Repository 06/07/2018/ [id number] Ambulatory [facility] 018 [facility] Main [place] Repository 06/06/2018/ [id number] Ambulatory [place] 018 [facility] Main [place] Repository 06/06/2018/ [id number] [place], [facility] 018 LEVI J [facility] [place] Repository 06/06/2018/ [id number] Ambulatory [facility] 018 [facility] [place] Repository 05/30/2018/ [id number] Ambulatory [place] 018 [facility] Main [place] Repository 05/27/2018/ [id number] Ambulatory [facility] 018 [facility] [place] Repository 05/26/2018/ [id number] Ambulatory [facility] [place] 018 [facility] ding:WC Repository 04/27/2018/ [id number] Ambulatory [facility] 018 [facility] [place] Repository 04/27/2018/ [id number] Ambulatory [facility] 018 [facility] [place] Repository 04/27/2018/ [id number] Ambulatory [facility] 018 [facility] [place] Repository 04/27/2018/ [id number] Ambulatory [facility] 018 [facility] [place] Repository 04/21/2018/ [id number] [place]ulatory [place] [facility]18 [facility] ding:WC Repository 04/06/2018/ [id number] Ambulatory [facility] 018 [facility] [place] Repository 04/06/2018/ [id number] Ambulatory [facility] 018 [facility] [place] Repository 04/06/2018/ [id number] Ambulatory [facility] 018 [facility] [place] Repository 03/28/2018/ [id number] Ambulatory [facility] 018 [facility] [place] Repository 03/25/2018/ [id number] Ambulatory [facility] 018 [facility] [place] Repository 03/25/2018/ [id number] Ambulatory [facility] 018 [facility] [place] Repository 03/22/2018/ [id number] Ambulatory [facility] 018 [facility] [place] Repository 03/22/2018/ [id number] Ambulatory [facility] 018 [facility] [place] Repository 03/04/2018/ [id number] Ambulatory [facility] 018 [facility] [place] Repository 03/04/2018/ [id number] Ambulatory [facility] 018 [facility] [place] Repository 03/04/2018 [id number] Ambulatory [facility] MEDICAL Repository CENTERBuildi ng:CAGWS 01/26/2018/ [id number] Ambulatory [facility] 018 [facility] [place] Repository 01/26/2018/ [id number] Ambulatory [facility] 018 [facility] [place] Repository 01/11/2018/ [id number] Emergency BBuilding:ER [facility]18 [facility] Repository 12/30/2017 [id number] [facility] [place] [facility]OP[facility] Rep[facility] 12/20/2017/ [id number] Ambulatory [facility] 018 [facility] [place] Repository 12/20/2017/ [id number] Ambulatory [facility] 018 [facility] [place] Repository 12/20/2017/ [id number] Ambulatory [facility] 018 [facility] [place] Repository 12/09/2017/ [id number] Ambulatory [facility] 018 [facility] [place] Repository 12/09/2017/ [id number] Ambulatory [facility] 018 [facility] [place] Repository 12/09/2017/ [id number] Ambulatory [facility] 018 [facility] [place] Repository 12/06/2017/ [id number] Ambulatory [facility] 018 [facility] [place] Repository 10/29/2017/ [id number] Ambulatory [facility] 018 [facility] [place] Repository 10/05/2017/ [id number] Ambulatory [facility] 018 [facility] [place] Repository 09/28/2017 [id number] Ambulatory [facility] MEDICAL Repository CENTERBuildi ng:AKCRLG 09/16/2017/ [id number] Ambulatory [facility] 018 [facility] [place] Repository 09/16/2017/ [id number] Ambulatory [facility] 018 [facility] [place] Repository 09/01/2017/ [id number] Ambulatory [facility] 018 [facility] [place] Repository 09/01/2017/ [id number] Ambulatory [facility] 018 Clinic Other [place] Repository 09/01/2017/ [id number] Ambulatory [address] MEDICAL Repository CENTERBuildi ng:MIGUELWS PAYERS PAYERS ENCOUNTER GUARANTOR PAYER SUBSCRIBER SOURCE 07/21/2018 CRUZ D Primary NOT GIVENUNK [place] [id number] Insurance:SELF PAY [place] Number: Effective Repository [id number]: 330 Date:2018-06-28 [phone] (HP) 06/16/2018 CRUZ D Primary NOT GIVENUNK [facility] [id number] Insurance:SELF PAY [place] Number: Effective Repository [id number]: ([phone]) Date:2018-05-28 [phone] (HP) 05/26/2018 CRUZ D Primary NOT GIVENUNK [facility] [id number] Insurance:SELF PAY [place] Number: Effective Repository [id number]: ([phone]) Date:2018-04-28 [phone] (HP) 04/21/2018 CRUZ D Primary Insurance:[facility] CRUZ D [place] [id number] [facility] SCHROERDOB: [facility] [place]: [id number] [id number] Repository [address]Xlx: ([phone]) Date:[id number] [phone] () [address] [place] [address] 28482NS: 04/21/2018 Secondary NOT GIVENUNK [place] Insurance:SELF PAY [facility] Number: Effective Repository Date:2018-04-01 03/04/2018 CRUZ D Primary CRUZ D [facility] SCHROERDOB: Insurance:[facility] SCHROERDOB: [facility] MEDICAREPolic [id number] Repository BATCHELOR Number: [place], [place] [id number] [phone]: ([phone]) Date: [phone] (HP) 03/04/2018 Secondary CRUZ D [facility] Insurance:[facility] SCHROERDOB: [facility] MEDICAIDPolicy [id number] Repository Number: [id number] Date: 01/11/2018 CRUZ D Primary Insurance:[facility] CRUZ D [facility] SCHROERDOB: [facility] SCHROERDOB: [facility] Number: [id number] Repository [place]CHELOR [id number] [place], [place] Date:2018-01-11 - [place], [place] [address]Ufh: [phone] [id number]: () Name:[phone] [place] [address] (HP)Tel: [phone]: ([phone]) [phone] 12/30/2017 CRUZ D Primary Insurance:[facility] CRUZ D [facility] [id number] [facility] SCHROERDOB: [facility] Number: [id number] [facility] [place] [id number] Repository 15[address]Mlk: ([phone]) Date:[id number] [phone] (HP) [address] [place] [address] 76236AW: 12/30/2017 Secondary NOT GIVENUNK [facility] Insurance:SELF PAY [facility] Number: Effective Repository Date:2017-12-14 09/28/2017 CRUZ D Primary CRUZ D [facility] SCHROERDOB: Insurance:[facility] SCHROERDOB: [facility] MEDICAREPolicy [id number] Repository BOSSMAN [facility] [place] [id number] [address]Lsz: ([phone]) Date: [phone] (HP) 09/28/2017 Secondary CRUZ D [facility] Insurance:[facility] SCHROERDOB: [facility] MEDICAIDPolicy [id number] Repository Number: [id number] Date: 09/01/2017 CRUZ D Primary CRUZ D [facility] SCHROERDOB: Insurance:[facility] SCHROERDOB: [facility] MEDICAREPolicy [id number] Repository BOSSMAN [facility] [place] [id number] [id number]: ([phone]) Date: [phone] (HP) 09/01/2017 Secondary CRUZ D [facility] Insurance:[facility] SCHROERDOB: [facility] MEDICAIDPolicy [id number] Repository Number: [id number] Date:
== END 2018-07-28 23:59 ==
LOC: WC 10:30
PROVIDERS: Family Provider Family Medicine; PCP Family Medicine; Referring Provider Podiatrist; Visit Provider Podiatrist
DX: L97.812 Non-pressure chronic ulcer of other part of right lower leg with fat layer exposed (principal); R60.0 Localized edema; M79.661 Pain in right lower leg
CPT/HCPCS: 15271; 99213; Q4186; G0463

== ENCOUNTER → 2021-01-23 10:03 | Outpatient (CLI) | payer MEDICARE, MEDICAID, SELFPAY ==
[2021-01-23] VITALS (7 sets, daily range): BP systolic 85–101; BP diastolic 57–63; PULSE 73–79; RESP 16–18; TEMP 35.7–36.3; O2SAT 95–100; BMI 27.8
== END ==
PROVIDERS: PCP Family Medicine; Referring Provider Internal Medicine Hematology & Oncology; Visit Provider Internal Medicine Hematology & Oncology
DX: D64.81 Anemia due to antineoplastic chemotherapy (principal)
CPT/HCPCS: 36430; 86850; 86900; 86901; 86920; 86922; 96372; J7040; P9016; A4216

== ENCOUNTER → 2021-02-11 08:19 | Outpatient (CLI) | payer MEDICAID, SELFPAY ==
[2021-01-23 10:44] VITALS: BMI 27.8
[2021-02-11] VITALS (8 sets, daily range): BP systolic 86–115; BP diastolic 58–76; PULSE 68–88; RESP 16–18; TEMP 35.9–36.3; O2SAT 97–99; BMI 39.2
[2021-02-11] MEDS: 0.9% NaCl VAD Flush IV ×2 (08:30→13:58)
[2021-02-11] MEDS: Furosemide 20 MG/2 ML VIAL IV (11:15)
== END ==
PROVIDERS: PCP Family Medicine; Referring Provider Internal Medicine Hematology & Oncology; Visit Provider Internal Medicine Hematology & Oncology
DX: D64.81 Anemia due to antineoplastic chemotherapy (principal); T45.1X5A Adverse effect of antineoplastic and immunosuppressive drugs, initial encounter
CPT/HCPCS: 96374; 36430; 86850; 86900; 86901; 86920; 86922; J7040; P9040; A4216; J1940

== ENCOUNTER 2021-03-04 09:58 | Observation (INO) | payer MEDICARE, MEDICAID, SELFPAY ==
[2021-03-04] VITALS (15 sets, daily range): BP systolic 95–152; BP diastolic 52–99; PULSE 79–112; RESP 16–24; TEMP 35.8–37.2; O2SAT 93–100; BMI 37.5; BMI 37.7
--- NOTE | 2021-03-04 10:14 | EDS_ITS ---
HPI History of Present Illness Chief Complaint: Abn Labs Detail of Chief Complaint: Sent in for hemoglobin of 5.5 per the patient. Informant: patient and family Onset/Context/Timing Onset: Days Context: Gradual Onset Timing: Continuous Current Severity: Mild Maximum Severity: Mild Narrative Narrative: 60-year-old female currently being treated for small cell lung CA. She is already had radiation and is undergoing chemotherapy and her last chemotherapy treatment was about 3 weeks ago. She has had anemia associated with her treatments had to have blood transfusions about a month ago. She denies any melena or hematemesis. She is on no blood thinners. She was told her hemoglobin was 5.5 and sent in by her oncologist to be transfused. Prior similar symptoms: Yes Recent Illness/Hospitalization: Yes PFSH [facility] Medical History (Updated 03/04/21 @ 12:[address] Hemant Quintero MD) Acute pain of both shoulders YEN positive Arthritis of both knees Cancer of lower lobe of left lung Carpal tunnel syndrome of left wrist CHF (congestive heart failure) Chronic obstructive pulmonary disease Chronic pain syndrome Combined hyperlipidemia Constipation Current use of proton pump inhibitor Elevated hemoglobin Essential hypertension Fibromyalgia Former smoker GERD (gastroesophageal reflux disease) HTN (hypertension) Hypoxia Insomnia Lipoma of buttock Low back pain Lumbar canal stenosis Lumbar facet arthropathy Lumbar foraminal stenosis Malignant neoplasm metastatic to adrenal gland Muscle spasm Obesity Palpitations Pericardial effusion Pulmonary hypertension RLS (restless legs syndrome) Seasonal allergies Secondary polycythemia Shortness of breath at rest Small cell lung cancer Systemic sclerosis with limited cutaneous involvement Urge incontinence Vitamin D deficiency Home Medications albuterol sulfate [Proair Hfa (SP)Vent Pts] 2 puff INHALATION Q4H PRN PRN 04/07/18 [History Last Taken Unknown] aspirin 81 mg PO DAILY@0800 04/07/18 [History Last Taken Unknown] atorvastatin 10 mg PO QHS 04/07/18 [History Last Taken Unknown] baclofen 20 mg PO DAILY 04/07/18 [History Last Taken Unknown] bupropion HCl 150 mg PO DAILY 04/07/18 [History Last Taken Unknown] epinephrine 0.3 mg IM PRN PRN 04/07/18 [History Last Taken Unknown] gabapentin [Neurontin] 400 mg PO DAILY 04/07/18 [History Last Taken Unknown] ibuprofen 800 mg PO DAILY 04/07/18 [History Last Taken Unknown] omeprazole 40 mg PO DAILY 04/07/18 [History Last Taken Unknown] oxybutynin chloride 15 mg PO DAILY 04/07/18 [History Last Taken Unknown] ropinirole [Requip] 1 mg PO QHS 04/07/18 [History Last Taken Unknown] tiotropium bromide [Spiriva] 18 mcg IH DAILY 04/07/18 [History Last Taken Unknown] cholecalciferol (vitamin D3) 50 mcg PO BID 03/04/21 [History Last Taken Unknown] doxycycline hyclate 100 mg PO BID 03/04/21 [History Last Taken Unknown] uifvwywgmoq-xveqcqpxd-qoewdtia [Trelegy Ellipta] 1 inh INHALATION DAILY 03/04/21 [History Last Taken Unknown] furosemide 20 mg PO DAILY 03/04/21 [History Last Taken Unknown] guaifenesin 600 mg PO Q12H 03/04/21 [History Last Taken Unknown] lidocaine-prilocaine 1 applic TOPICAL PRN PRN 03/04/21 [History Last Taken Unknown] losartan 50 mg PO DAILY 03/04/21 [History Last Taken Unknown] metoprolol tartrate 25 mg PO BID 03/04/21 [History Last Taken Unknown] promethazine 25 mg PO Q6H PRN 03/04/21 [History Last Taken Unknown] Allergy/AdvReac Type Severity Reaction Status Date / Time bee venom protein (honey bee) Allergy Shortness Verified 03/04/21 10:01 of breath naproxen [From Aleve] AdvReac Rash Verified 03/04/21 10:01 Surgical History (Updated 03/04/21 @ 11:48 by Lorena Shields) S/P pericardial window creation Social History Smoking Status: Current every day smoker tobacco type: cigarettes ROS ROS ED ROS Narrative Denies recent illness. Review of Systems ROS Unobtainable: Denies due to encephalopathy Constitutional Constitutional ED: Denies chills or fever(s) Eyes Eyes: Denies change in vision ENT ENT ED: Denies ear pain or sore throat Cardiovascular Cardiovascular: Denies chest pain Respiratory/Chest Respiratory/Chest: Denies cough or dyspnea Gastrointestinal Gastrointestinal: Denies abdominal pain, diarrhea, nausea or vomiting Genitourinary Genitourinary ED: Denies dysuria Musculoskeletal Musculoskeletal: Denies myalgias Integumentary Denies rash Neurologic Neurologic: Denies headache(s) Psychiatric Psychiatric: Denies depression Endocrine Endocrinology: Denies polyuria Allergic/Immunologic Allergic/Immunologic ED: Denies urticaria EXAM Physical Exam Narrative Exam Narrative: Middle-aged female no acute distress. Vital signs stable afebrile. H EENT vomiting well-padded neck nontender. No JVD. Lungs clear to auscultation. Abdomen soft nontender normal bowel sounds no peritoneal signs. Heart regular rhythm rate about 100 no murmur. Abdomen soft nontender normal bowel sounds no peritoneal signs. Moving all 4 extremities. Calves are nontender without edema. Neurologically awake alert with no focal motor deficits. Const Vital Signs: 03/04/21 09:59 03/04/21 11:35 03/04/21 12:29 Temperature 96.5 F L Temperature Source Temporal Pulse Rate 108 H 110 H Respiratory Rate 16 20 H Respiratory Effort Normal Non-Labored Respiratory Pattern Normal Blood Pressure 132/70 H Blood Pressure Mean 90 Pulse Ox 98 Oxygen Delivery Method Room Air Positive well nourished and well developed; Negative for unkempt General Appearance ED: well developed, NAD and pallor; Negative for unkempt HEENT Reports moist mucous membranes Negative for trauma or tenderness Eyes PERRL and EOMs intact bilaterally General Eye ED: Yes pale conjunctiva Neck no lymphadenopathy, supple and no JVD General: Negative for tenderness Chest Wall inspection of chest normal and palpation of chest normal Resp normal respiratory effort and clear to auscultation bilaterally Auscultation: Negative for rales, rhonchi or wheezes Cardio regular rate, regular rhythm, S1 normal heart sound, S2 normal heart sound and no murmurs GI normal to inspection, nondistended, normoactive bowel sounds, non-tender, non- distended and no masses Inspection: Negative for abdominal distention Auscultation: normoactive bowel sounds Palpation: soft; Negative for tender, guarding or rebound tenderness present Extremity normal to inspection General Extremety ED: Negative for edema or tenderness General Extremity: Negative for edema Neuro oriented x3 and CN's II-XII intact bilaterally Sensorium / Orientation: alert and orientation impaired; Negative for lethargic or stuporous Motor Exam: strength 5/5 throughout Psych mental status grossly normal Appearance: Negative for unkempt Skin no rashes or lesions noted and no wounds General Skin Exam: pallor MDM MDM MDM Narrative Medical decision making narrative: 60-year-old female currently being treated for small cell lung CA undergoing chemotherapy. Had screening labs showing she was anemic sent to the ER for transfusion. Repeat exam at 1250 unchanged. Hospitalist and oncologist on page. Patient will be transfused. Admitted. Lab Data Attestation: I reviewed the patient's lab results. Lab results narrative: CBC shows a white count 8. Hemoglobin of 5.1. Electrolytes unremarkable gap of 6 normal creatinine 0.76. Labs: Laboratory Results - last 24 hr 03/04/21 03/04/21 03/04/21 11:20 11:20 11:20 WBC 8.1 RBC 1.67 L Hgb 5.1 L* Hct 16.3 L MCV 97.6 MCH 30.5 MCHC 31.3 L RDW Std Deviation 64.1 H RDW Coeff of Daren 19.5 H Plt Count 81 L MPV 10.4 Differential Comment Sodium 139 Potassium 3.3 L Chloride 104 Carbon Dioxide 29.0 Anion Gap 6 BUN 17 Creatinine 0.76 Estim Creat Clear Calc 71.72 Est GFR (MDRD) Af Amer 100 Est GFR (MDRD) Non-Af 83 BUN/Creatinine Ratio 22.4 H Glucose 107 H Calcium 8.7 Blood Type B POSITIVE Antibody Screen NEGATIVE Crossmatch See Detail Discharge Plan Triage Chief Complaint: Abn Labs ED Provider: Hemant Quintero Dx/Rx/DC Orders Clinical Impression: Anemia, Lung cancer, History of chemotherapy Prescriptions: No Action atorvastatin 10 MG tablet 10 mg PO QHS RF: 0 ibuprofen 800 MG tablet 800 mg PO DAILY RF: 0 gabapentin [Neurontin] 400 MG capsule 400 mg PO DAILY RF: 0 aspirin 81 MG tablet 81 mg PO DAILY@0800 RF: 0 baclofen 20 MG tablet 20 mg PO DAILY RF: 0 ropinirole [Requip] 0.5 MG tablet 1 mg PO QHS RF: 0 bupropion HCl 75 MG tablet 150 mg PO DAILY RF: 0 omeprazole 20 MG capsule 40 mg PO DAILY RF: 0 epinephrine 0.3 MG syringe 0.3 mg IM PRN PRN (Reason: Allergic Reaction) RF: 0 albuterol sulfate [ProAir HFA] 1 PUFF inhaler 2 puff inhalation Q4H PRN PRN (Reason: Sob &/Or Wheezing) RF: 0 oxybutynin chloride 5 MG tablet 15 mg PO DAILY RF: 0 Spiriva with HandiHaler 18 MCG capsule, w/inhalation device 18 mcg IH DAILY RF: 0 losartan 50 mg Tablet 50 mg PO DAILY RF: 0 doxycycline hyclate 100 mg Capsule 100 mg PO BID RF: 0 guaifenesin 600 mg Tablet Extended Release 600 mg PO Q12H RF: 0 lidocaine-prilocaine 2.5-2.5 % Cream 1 applic topical PRN PRN (Reason: Pain) RF: 0 promethazine 25 mg Tablet 25 mg PO Q6H PRN (Reason: Nausea) RF: 0 furosemide 20 mg Tablet 20 mg PO DAILY RF: 0 metoprolol tartrate 25 mg Tablet 25 mg PO BID RF: 0 cholecalciferol (vitamin D3) 50 mcg (2,000 unit) Tablet 50 mcg PO BID RF: 0 Trelegy Ellipta 100-62.5-25 mcg Blister With Device 1 inh INHALATION DAILY RF: 0 Primary Care Provider: Tex Martínez Referrals: Tex Martínez MD [Primary Care Provider] - Disposition Disposition: Acute Care Hospital [facility]
[2021-03-04 11:36] LABS: Hematocrit 16.3 % (37-47); Hemoglobin 5.1 g/dL (12.0-15.0); Mean Corp Hgb Conc 31.3 g/dL (32-36); Mean Corpuscular Hgb 30.5 pg (27.0-32.0); Mean Corpuscular Volume 97.6 fL (81-99); Mean Platelet Vol. 10.4 fl (6.2-12.0); POSITIVE COUNT YES; Platelet Count 81 K/mm3 (150-450); RBC Distribution Width CV 19.5 % (11.6-14.6); RBC Distribution Width SD 64.1 fl (35.1-43.9); Red Blood Count 1.67 M/mm3 (4.2-5.4); White Blood Count 8.1 K/mm3 (4.4-11.0)
[2021-03-04 11:37] LABS: Scan Indicated on CBC? Y/N YES- FLAGS NOTED
[2021-03-04 11:44] LABS: Anion Gap 6 (5-15); BUN 17 mg/dL (7-18); BUN/Creat Ratio 22.4 RATIO (10-20); Calcium,Total 8.7 mg/dL (8.5-10.1); Chloride 104 mmol/L (98-107); Creatinine, Serum 0.76 mg/dL (0.55-1.02); EST Glomerular Filtration Rate 83 mL/min (>60); Est Glom Filt Rate - Afr Amer 100 mL/min (>60); Estimated Creatinine Clearance 71.72 ml/min; Glucose 107 mg/dL (74-106); Potassium 3.3 mmol/L (3.5-5.1); Sodium Level 139 mmol/L (136-145)
[2021-03-04] MEDS: Ipratropium/Albuterol Sulfate 3 ML AMPUL.NEB INHALATION (12:28)
--- NOTE | 2021-03-04 13:20 | PCM.HP.STD ---
HPI - General General Date of Admission: 03/04/21 Date of Service: 03/04/21 Chief Complaint: Symptomatic anemia HPI Narrative CRUZ CLEMENS, is a 60 F who presented to the emergency department [facility] at the instruction of her oncologist, Dr. Barker, for abnormal labs. She is currently being treated for small cell lung CA with chemotherapy and radiation. Her last chemotherapy was approximately 3 weeks ago when she was actually due for chemotherapy again tomorrow which has been canceled and rescheduled. She has had anemia associated with her chemotherapy and has required 2 blood transfusions previously. Upon routine blood draw her hemoglobin was noted to be 5.5 and she was sent to the emergency department by her oncologist to be transfused. She notes that she has been more short of breath with exertion and has been more fatigued than she typically is. She denies any melena hematochezia or hematemesis. She does have intermittent nausea and dry heaves and takes Phenergan for this at baseline. She notes she has been constipated which is a chronic issue for her. She denies any chest pain, tingling, numbness, fevers, or chills. She reports she has tolerated transfusions well in the past. In the emergency department 1 unit of packed red blood cells was given. Her oncologist has requested 2 units be transfused. She will be admitted to [facility] for transfusion and probable discharge tomorrow. [facility] Medical History Acute pain of both shoulders YEN positive Arthritis of both knees Cancer of lower lobe of left lung Carpal tunnel syndrome of left wrist CHF (congestive heart failure) Chronic obstructive pulmonary disease Chronic pain syndrome Combined hyperlipidemia Constipation Current use of proton pump inhibitor Elevated hemoglobin Essential hypertension Fibromyalgia Former smoker GERD (gastroesophageal reflux disease) HTN (hypertension) Hypoxia Insomnia Lipoma of buttock Low back pain Lumbar canal stenosis Lumbar facet arthropathy Lumbar foraminal stenosis Malignant neoplasm metastatic to adrenal gland Muscle spasm Obesity Palpitations Pericardial effusion Pulmonary hypertension RLS (restless legs syndrome) Seasonal allergies Secondary polycythemia Shortness of breath at rest Small cell lung cancer Systemic sclerosis with limited cutaneous involvement Urge incontinence Vitamin D deficiency Home Medications albuterol sulfate [Proair Hfa (SP)Vent Pts] 2 puff INHALATION Q4H PRN PRN 04/07/18 [History Last Taken Unknown] aspirin 81 mg PO DAILY@0800 04/07/18 [History Last Taken Unknown] atorvastatin 10 mg PO QHS 04/07/18 [History Last Taken Unknown] baclofen 20 mg PO DAILY 04/07/18 [History Last Taken Unknown] bupropion HCl 150 mg PO DAILY 04/07/18 [History Last Taken Unknown] epinephrine 0.3 mg IM PRN PRN 04/07/18 [History Last Taken Unknown] gabapentin [Neurontin] 400 mg PO DAILY 04/07/18 [History Last Taken Unknown] ibuprofen 800 mg PO DAILY 04/07/18 [History Last Taken Unknown] omeprazole 40 mg PO DAILY 04/07/18 [History Last Taken Unknown] oxybutynin chloride 15 mg PO DAILY 04/07/18 [History Last Taken Unknown] ropinirole [Requip] 1 mg PO QHS 04/07/18 [History Last Taken Unknown] tiotropium bromide [Spiriva] 18 mcg IH DAILY 04/07/18 [History Last Taken Unknown] cholecalciferol (vitamin D3) 50 mcg PO BID 03/04/21 [History Last Taken Unknown] doxycycline hyclate 100 mg PO BID 03/04/21 [History Last Taken Unknown] yurtvfzqmja-rlgigkzca-bpyfldml [Trelegy Ellipta] 1 inh INHALATION DAILY 03/04/21 [History Last Taken Unknown] furosemide 20 mg PO DAILY 03/04/21 [History Last Taken Unknown] guaifenesin 600 mg PO Q12H 03/04/21 [History Last Taken Unknown] lidocaine-prilocaine 1 applic TOPICAL PRN PRN 03/04/21 [History Last Taken Unknown] losartan 50 mg PO DAILY 03/04/21 [History Last Taken Unknown] metoprolol tartrate 25 mg PO BID 03/04/21 [History Last Taken Unknown] promethazine 25 mg PO Q6H PRN 03/04/21 [History Last Taken Unknown] Allergy/AdvReac Type Severity Reaction Status Date / Time bee venom protein (honey bee) Allergy Shortness Verified 03/04/21 10:01 of breath naproxen [From Aleve] AdvReac Rash Verified 03/04/21 10:01 other Surgical History S/P pericardial window creation Social History (Updated 03/04/21 @ 13:[address] Adela Hannah DO) Smoking Status: Former smoker alcohol intake: never substance use type: does not use ROS Constitutional Constitutional: Reports change in weight, fatigue and weakness; Denies anorexia, chills, fever(s), malaise, night sweats or other Eyes Eyes: Denies blurry vision, change in eye color, change in vision, discharge from eye(s), double vision, erythema, eye pain, loss of vision or other ENT HEENT: Denies abnormal hearing, dysphagia, ear pain, epistaxis, headache(s), hearing loss, nasal congestion, nasal discharge, post nasal drip, sinus pressure, sore throat or other Cardiovascular Cardiovascular: Reports dyspnea on exertion and rapid heart rate; Denies chest pain, claudication, edema, lightheadedness, orthopnea, palpitations, paroxysmal nocturnal dyspnea, syncope or other Respiratory/Chest Respiratory/Chest: Reports cough, dyspnea, productive cough, shortness of breath at rest and shortness of breath with exertion; Denies excessive phlegm production, hemoptysis, wheezing or other Gastrointestinal Gastrointestinal: Reports constipation and nausea; Denies abdominal pain, coffee ground emesis, diarrhea, dyspepsia, hematemesis, hematochezia, loose stools, melena, vomiting or other Genitourinary Genitourinary: Denies burning urination, difficulty urinating, dysuria, hematuria, nocturia, urinary frequency, urinary hesitancy, urinary incontinence, urinary urgency or other Musculoskeletal Musculoskeletal: Reports joint pain and joint stiffness; Denies arthralgias, back pain, joint swelling, myalgias, neck pain or other Neurologic Neurologic: Denies abnormal gait, abnormal speech, confusion, disequilibrium, dizziness, focal weakness, headache(s), numbness, paresthesias, seizure-like activity, seizures, syncope, tingling, tremor(s) or other Psychiatric Psychiatric: Denies anxiety, depression, homicidal ideation, suicidal ideation or other Endocrine Endocrinology: Denies change in body appearance, cold intolerance, excessive sweating, heat intolerance, polydipsia, polyuria or other Hematologic/Lymphatic Hematologic/Lymphatic: Reports anemia and easy bruising; Denies easy bleeding, lymphadenopathy or other Allergic/Immunologic Allergic/Immunologic: Denies rhinitis, hives, eczemia, asthma or other Vital Signs Vital Signs Vital Signs: 03/04/21 09:59 03/04/21 11:35 03/04/21 12:29 Temperature 96.5 F L Temperature Source Temporal Pulse Rate 108 H 110 H Respiratory Rate 16 20 H Respiratory Effort Normal Non-Labored Respiratory Pattern Normal Blood Pressure 132/70 H Blood Pressure Mean 90 Pulse Ox 98 Oxygen Delivery Method Room Air Weight Weight: 102.512 kg Body Mass Index (BMI) 37.5 Physical Exam Const alert, oriented x3 and no apparent distress Constitutional Narrative: Upper middle-aged white female appears older than stated age, sitting up in bed, appears comfortable, nontoxic, currently on baseline oxygen General Appearance: cooperative HEENT normocephalic, head/scalp atraumatic, hearing grossly normal bilaterally, moist oral mucous membranes and oropharynx normal; Negative for dentition normal HEENT Narrative: Upper dentures in place, Mallampati Mouth: oral and palatal mucosa normal Eyes PERRL and EOMs intact bilaterally Eyes Narrative: Pale conjunctiva Neck no lymphadenopathy, supple, no JVD and no carotid bruits Resp normal respiratory effort, no retractions and no use of accessory muscles Resp Narrative: Diffusely diminished with scattered end expiratory wheezes Auscultation: wheezes; Negative for crackles, rales or rhonchi Cardio regular rhythm, S1 normal heart sound, S2 normal heart sound, no murmurs, no rub, no gallops, no clicks and no JVD Cardio Narrative: Mildly tachycardic GI normal to inspection, nondistended, normoactive bowel sounds, soft to palpation, non-tender and non-distended Extremity no clubbing, cyanosis or edema Peripheral Pulses: Yes pulses 2+ throughout Skin no rashes or lesions noted, no wounds, skin turgor normal, no jaundice, no petechiae and no mottling Skin Narrative: Extremely pale Neuro oriented x3, CN's II-XII intact bilaterally, moves all extremities and no focal motor deficits Sensorium / Orientation: awake and alert Speech: speech normal Psych affect normal Results Lab / Micro Data Attestation: I reviewed the patient's lab results. Result Diagrams: 03/04/21 11:20 03/04/21 11:20 Labs: Laboratory Results - last 24 hr 03/04/21 11:20: WBC 8.1, RBC 1.67 L, Hgb 5.1 L*, Hct 16.3 L, MCV 97.6, MCH 30.5, MCHC 31.3 L, RDW Std Deviation 64.1 H, RDW Coeff of Daren 19.5 H, Plt Count 81 L, MPV 10.4, Differential Comment 03/04/21 11:20: Sodium 139, Potassium 3.3 L, Chloride 104, Carbon Dioxide 29.0, Anion Gap 6, BUN 17, Creatinine 0.76, Estim Creat Clear Calc 71.72, Est GFR (MDRD) Af Amer 100, Est GFR (MDRD) Non-Af 83, BUN/Creatinine Ratio 22.4 H, Glucose 107 H, Calcium 8.7 03/04/21 11:20: Blood Type B POSITIVE, Antibody Screen NEGATIVE, Crossmatch See Detail Assessment & Plan Assessment/Plan (1) Anemia: (2) Lung cancer: PLAN: Symptomatic anemia secondary to bone marrow suppression related to chemotherapy -Transfuse 2 units packed red blood cells -Repeat CBC in a.m. -If hemoglobin stable okay for discharge -Patient to follow with oncology-Dr. Barker Thrombocytopenia -Counts are 81,000 -We will continue to monitor -Likely related to bone marrow suppression Small cell lung CA -Patient has undergone radiation -Now undergoing chemotherapy with last treatment approximately 3 weeks ago -Follows with Dr. Barker Hyperlipidemia Continue atorvastatin Hypertension -Continue losartan -Continue metoprolol -Continue Lasix COPD -Continue Spiriva -Continue as needed albuterol -Continue Trelegy Ellipta inhaler -Continue guaifenesin -Patient is O2 dependent at baseline GERD -Continue PPI Restless leg syndrome -Continue Requip Urinary incontinence -Continue oxybutynin Chronic pain -Continue home medication Depression -Continue home medication DVT prophylaxis -Lovenox daily CODE STATUS -Full code Charges/Coding Visit Charges Inpatient E&M: 86396 Init Hosp L3
--- NOTE | 2021-03-04 13:31 | NURSING ---
MED SURG OBS DR VINSON ANEMIA, TRANSFUSION, LUNG CA ON CHEMO
--- NOTE | 2021-03-04 19:36 | NURSING ---
emergency charting started at 193
[2021-03-04] MEDS: Atorvastatin Calcium 10 MG Tablet PO (20:17)
[2021-03-04] MEDS: Fluticasone/Salmeterol 232-14 Inhaler 1 PUFF INHALATION (20:17)
[2021-03-04] MEDS: Doxycycline 100 MG CAPSULE PO (20:17)
[2021-03-04] MEDS: Metoprolol Tartrate 25 MG Tablet PO (20:18)
[2021-03-04] MEDS: guaiFENesin 600 MG Tablet PO (20:19)
[2021-03-04] MEDS: Cholecalciferol (VIT D3) 25 MCG TABLET (1,000 UNITS) 50 MCG PO (20:19)
[2021-03-04] MEDS: Pramipexole Di-HCl 0.5 MG Tablet PO (20:20)
[2021-03-04] MEDS: Acetaminophen 325 MG Tablet 650 MG PO (20:33)
[2021-03-04] MEDS: Senna/Docusate Sodium 1 Tablet 2 TABLET PO (20:33)
[2021-03-05] VITALS (8 sets, daily range): BP systolic 135–146; BP diastolic 84–114; PULSE 78–89; RESP 14–18; TEMP 36.6–36.9; O2SAT 94–97
--- NOTE | 2021-03-05 02:47 | PCS.PANDOC ---
PANDEMIC DOCUMENTATION INITIATED: Date: 02/10/2021 Time: 190
[2021-03-05] MEDS: Polyethylene Glycol 3350 17 GM PACKET PO (07:36)
[2021-03-05] MEDS: Acetaminophen 325 MG Tablet 650 MG PO (08:50)
[2021-03-05 08:52] LABS: Hematocrit 24.5 % (37-47); Hemoglobin 7.8 g/dL (12.0-15.0); Mean Corp Hgb Conc 31.8 g/dL (32-36); Mean Corpuscular Volume 94.2 fL (81-99); Mean Platelet Vol. 10.2 fl (6.2-12.0); POSITIVE COUNT YES; POSITIVE MORPHOLOGY YES; Platelet Count 107 K/mm3 (150-450); RBC Distribution Width CV 18.6 % (11.6-14.6); RBC Distribution Width SD 57.9 fl (35.1-43.9); White Blood Count 7.3 K/mm3 (4.4-11.0)
[2021-03-05 08:53] LABS: Differential Indicated MANUAL DIFF
[2021-03-05 09:04] LABS: Anion Gap 7 (5-15); BUN 15 mg/dL (7-18); Calcium,Total 8.7 mg/dL (8.5-10.1); Chloride 104 mmol/L (98-107); Creatinine, Serum 0.68 mg/dL (0.55-1.02); EST Glomerular Filtration Rate 94 mL/min (>60); Est Glom Filt Rate - Afr Amer 114 mL/min (>60); Estimated Creatinine Clearance 80.16 ml/min; Glucose 112 mg/dL (74-106); Magnesium 1.1 mg/dL (1.6-2.6); Phosphorus 2.6 mg/dL (2.5-4.9); Potassium 3.2 mmol/L (3.5-5.1); Sodium Level 139 mmol/L (136-145)
[2021-03-05 09:28] LABS: Lymphocyte 7 % (19-41); Metamyelocyte 2 % (0-1); Monocyte 14 % (0-10); Myelocyte 3 % (0-0); Neutrophil-Segmented 74 % (47-70); Platelet Estimate SLT DEC (ADEQ); Red Cell Morphology NORM C+C NORMAL (NORM C&C); Total Cells Counted 100 (MANUAL DIFF)
[2021-03-05 09:29] LABS: Absolute Lymphocyte Count 0.51 X10^3/uL (0.83-4.51); Absolute Neutrophil Count 5.4 X10^3/uL (2.0-7.7); Lymphocyte # 0.51 X10^3/ul (0.83-4.51)
--- NOTE | 2021-03-05 09:51 | PCM.DC.SUM ---
Providers Date of Admission: 03/04/21 Primary Care Physician: Dr. Tex Martínez MD Reason For Visit: ANEMIA Diagnosis Discharge Diagnosis (1) Anemia: Status: Acute Code(s): D64.9 - Anemia, unspecified (2) Lung cancer: Status: Acute Code(s): C34.90 - Malignant neoplasm of unspecified part of unspecified bronchus or lung Medications at Discharge Home Medications albuterol sulfate [ProAir HFA] 2 puff INHALATION Q4H PRN PRN 04/07/18 aspirin 81 mg PO DAILY@0800 04/07/18 atorvastatin 10 mg PO QHS 04/07/18 baclofen 20 mg PO DAILY 04/07/18 epinephrine 0.3 mg IM PRN PRN 04/07/18 gabapentin [Neurontin] 1,200 mg PO QHS 04/07/18 ibuprofen 800 mg PO DAILY 04/07/18 Trelegy Ellipta 1 inh INHALATION DAILY 03/04/21 bupropion HCl (smoking deter) 150 mg PO DAILY 03/04/21 cholecalciferol (vitamin D3) 50 mcg PO BID 03/04/21 doxycycline hyclate 100 mg PO BID 03/04/21 furosemide 20 mg PO DAILY 03/04/21 guaifenesin [Mucinex] 600 mg PO BID 03/04/21 lidocaine-prilocaine 1 applic TOPICAL PRN PRN 03/04/21 losartan 50 mg PO DAILY 03/04/21 omeprazole 40 mg PO DAILY 03/04/21 oxybutynin chloride 15 mg PO DAILY 03/04/21 promethazine 25 mg PO Q6H PRN 03/04/21 ropinirole 1 mg PO QHS 03/04/21 Hospital Course Operations None Procedures Blood transfusion (2 units packed red blood cells) Summary of Care Provided Minutes Spent on Discharge: 23 Hospital Course: CRUZ CLEMENS, is a 60 F who presented to the emergency department [facility] at the instruction of her oncologist, Dr. Barker, for abnormal labs. She is currently being treated for small cell lung CA with chemotherapy and radiation. Her last chemotherapy was approximately 3 weeks ago when she was actually due for chemotherapy again tomorrow which has been canceled and rescheduled. She has had anemia associated with her chemotherapy and has required 2 blood transfusions previously. Upon routine blood draw her hemoglobin was noted to be 5.5 and she was sent to the emergency department by her oncologist to be transfused. She noted that she had been more short of breath with exertion and more fatigued than she typical. She denied any melena, hematochezia, or hematemesis. She does have intermittent nausea and dry heaves and has been taking Phenergan for this at baseline. She noted that she has been constipated which is a chronic issue for her. She denied any chest pain, tingling, numbness, fevers, or chills. She reported she has tolerated transfusions well in the past. She was admitted to the medical floor and transfused 2 units of packed red blood cells. Her hemoglobin improved to 7.8 on discharge. Her BMP on the morning of discharge showed a potassium of 3.2 for which she was given 60 mEq of p.o. potassium. Her magnesium level was also low at 1.1 and she was therefore treated given 2 g of IV magnesium prior to discharge. She was instructed to follow-up with her oncologist, Dr. Barker, as already scheduled. I did discuss the discharge with Dr. Barker and he stated that he would follow-up closely with her and transfuse her possibly later on this week if needed. She is to follow-up with her PCP as needed. Discharge diagnoses: Symptomatic anemia secondary to bone marrow suppression related to chemotherapy Thrombocytopenia secondary to chemotherapy Small cell lung carcinoma Hyperlipidemia Hypertension COPD GERD Restless leg syndrome Urinary incontinence Chronic pain Depression Physical Exam Const alert, oriented x3 and no apparent distress Constitutional Narrative: Upper middle-aged white female appears older than stated age, sitting up in bed, appears comfortable, nontoxic, currently on baseline oxygen, appears much less fatigued and more interactive today General Appearance: cooperative, comfortable, well kempt and well developed Orientation / Consciousness: awake Exam Limitations: no limitations HEENT normocephalic, head/scalp atraumatic, hearing grossly normal bilaterally, moist oral mucous membranes and oropharynx normal; Negative for dentition normal Eyes Eyes Narrative: Pale conjunctiva Neck no JVD and no carotid bruits Resp normal respiratory effort, no retractions, no use of accessory muscles and clear to auscultation bilaterally Resp Narrative: Diffusely diminished with scattered end expiratory wheezes Auscultation: Negative for crackles, rales, rhonchi or wheezes Cardio regular rate, regular rhythm, S1 normal heart sound, S2 normal heart sound, no murmurs, no rub, no gallops, no clicks and no JVD GI normal to inspection, nondistended, normoactive bowel sounds, soft to palpation, non-tender and non-distended Extremity no clubbing, cyanosis or edema Skin no rashes or lesions noted, no wounds, skin turgor normal, no jaundice, no petechiae and no mottling Skin Narrative: Less pale today, Mediport right chest-clean and dry Neuro oriented x3, moves all extremities and no focal motor deficits Sensorium / Orientation: awake and alert Speech: speech normal Psych affect normal Weight / BMI Weight Weight: 102.8 kg Body Mass Index (BMI) 37.7 ABG / Lab / Microbiology Data Result Diagrams: 03/05/21 08:40 03/05/21 08:40 Laboratory: Laboratory Results - last 24 hr 03/04/21 11:20: WBC 8.1, RBC 1.67 L, Hgb 5.1 L*, Hct 16.3 L, MCV 97.6, MCH 30.5, MCHC 31.3 L, RDW Std Deviation 64.1 H, RDW Coeff of Daren 19.5 H, Plt Count 81 L, MPV 10.4, Differential Comment 03/04/21 11:20: Sodium 139, Potassium 3.3 L, Chloride 104, Carbon Dioxide 29.0, Anion Gap 6, BUN 17, Creatinine 0.76, Estim Creat Clear Calc 71.72, Est GFR (MDRD) Af Amer 100, Est GFR (MDRD) Non-Af 83, BUN/Creatinine Ratio 22.4 H, Glucose 107 H, Calcium 8.7 03/04/21 11:20: Blood Type B POSITIVE, Antibody Screen NEGATIVE, Crossmatch See Detail 03/05/21 08:40: Sodium 139, Potassium 3.2 L, Chloride 104, Carbon Dioxide 28.0, Anion Gap 7, BUN 15, Creatinine 0.68, Estim Creat Clear Calc 80.16, Est GFR (MDRD) Af Amer 114, Est GFR (MDRD) Non-Af 94, BUN/Creatinine Ratio 22.0 H, Glucose 112 H, Calcium 8.7, Phosphorus 2.6, Magnesium 1.1 L 03/05/21 08:40: WBC 7.3, RBC 2.60 L, Hgb 7.8 L, Hct 24.5 L, MCV 94.2, MCH 30.0, MCHC 31.8 L, RDW Std Deviation 57.9 H, RDW Coeff of Daren 18.6 H, Plt Count 107 L, MPV 10.2, Neut % (Auto) Not Reportable, Absolute Neuts (auto) 5.4, Absolute Lymphs (auto) 0.51 L, Total Counted 100, Neutrophils % (Manual) 74 H, Lymphocytes % (Manual) 7 L, Monocytes % (Manual) 14 H, Metamyelocytes % 2 H, Myelocytes % 3 H, Diff Path Review October foll, Platelet Estimate SLT DEC, RBC Morphology NORM C+C Microbiology: Microbiology 03/04/21 13:56 Nasal Secretion SARS-CoV-2 Antigen (Rapid) - Final D/C Instructions Discharge Diet: Low fat / Low cholesterol Discharge Activity: Return to Normal Activity Meaningful Use Info Meaningful Use Diagnoses (Choose all that apply): None applicable Discharge Plan Admission Admit Date/Time: 03/04/21 13:10 Primary Reason for Your Visit: Anemia Attending Provider: Adela Hannah Primary Care Provider: Tex Martínez Discharge Orders/Prescriptions Prescriptions: Continued atorvastatin 10 MG tablet 10 mg PO QHS RF: 0 ibuprofen 800 MG tablet 800 mg PO DAILY RF: 0 gabapentin [Neurontin] 400 MG capsule 1,200 mg PO QHS RF: 0 aspirin 81 MG tablet 81 mg PO DAILY@0800 RF: 0 baclofen 20 MG tablet 20 mg PO DAILY RF: 0 epinephrine 0.3 MG syringe 0.3 mg IM PRN PRN (Reason: Allergic Reaction) RF: 0 albuterol sulfate [ProAir HFA] 1 PUFF inhaler 2 puff inhalation Q4H PRN PRN (Reason: Sob &/Or Wheezing) RF: 0 losartan 50 mg Tablet 50 mg PO DAILY RF: 0 doxycycline hyclate 100 mg Capsule 100 mg PO BID RF: 0 lidocaine-prilocaine 2.5-2.5 % Cream 1 applic topical PRN PRN (Reason: Pain) RF: 0 promethazine 25 mg Tablet 25 mg PO Q6H PRN (Reason: Nausea) RF: 0 furosemide 20 mg Tablet 20 mg PO DAILY RF: 0 cholecalciferol (vitamin D3) 50 mcg (2,000 unit) Tablet 50 mcg PO BID RF: 0 Trelegy Ellipta 100-62.5-25 mcg Blister With Device 1 inh INHALATION DAILY RF: 0 oxybutynin chloride 15 mg tablet extended release 24hr 15 mg PO DAILY RF: 0 omeprazole 40 mg capsule,delayed release(DR/EC) 40 mg PO DAILY RF: 0 ropinirole 2 mg tablet 1 mg PO QHS RF: 0 guaifenesin [Mucinex] 600 mg tablet extended release 12hr 600 mg PO BID RF: 0 bupropion HCl (smoking deter) 150 mg tablet extended release 12 hr 150 mg PO DAILY RF: 0 Referrals / Follow Up: Tex Martínez MD [Primary Care Provider] - See Referral Note (As needed) Grzegorz Barker DO [STAFF PHYSICIAN] - See Referral Note (As scheduled) Disposition Disposition (needs filled in before D/C Order can be placed): Home, Self Care Charges/Coding Visit Charges Inpatient E&M: 04521 Disch Hosp
[2021-03-05] MEDS: Fluticasone/Salmeterol 232-14 Inhaler 1 PUFF INHALATION (09:59)
[2021-03-05] MEDS: Umeclidinium Bromide Inhaler 1 PUFF INHALATION (10:00)
[2021-03-05] MEDS: Cholecalciferol (VIT D3) 25 MCG TABLET (1,000 UNITS) 50 MCG PO (10:03)
[2021-03-05] MEDS: Ibuprofen 400 MG Tablet 800 MG PO (10:03)
[2021-03-05] MEDS: Losartan Potassium 50 MG Tablet PO (10:04)
[2021-03-05] MEDS: Furosemide 20 MG Tablet PO (10:04)
[2021-03-05] MEDS: Oxybutynin 5 MG Tablet 15 MG PO (10:04)
[2021-03-05] MEDS: Metoprolol Tartrate 25 MG Tablet PO (10:04)
[2021-03-05] MEDS: guaiFENesin 600 MG Tablet PO (10:04)
[2021-03-05] MEDS: Pantoprazole Sodium 40 MG Tablet PO (10:04)
[2021-03-05] MEDS: buPROPion 75 MG Tablet 150 MG PO (10:05)
[2021-03-05] MEDS: Doxycycline 100 MG CAPSULE PO (10:05)
[2021-03-05] MEDS: Potassium Chloride Oral Tablet 20 MEQ 60 MEQ PO (10:15)
[2021-03-05] MEDS: Aspirin E.C. 81 MG Tablet PO (10:15)
[2021-03-05] MEDS: 0.9% Saline Lock 10 ML Syringe IV (12:42)
[2021-03-05 16:10] LABS: Pathologist Review Reviewed
[2021-03-06 16:46] LABS: Pathologist Review Reviewed
== END 2021-03-05 09:52 | disposition home or self-care (01) ==
LOC: ED 13:34 → PCU 13:41
PROVIDERS: Admitting Provider Internal Medicine; Emergency Provider Emergency Medicine; PCP Family Medicine; Visit Provider Internal Medicine
DX: D64.81 Anemia due to antineoplastic chemotherapy (principal); C34.32 Malignant neoplasm of lower lobe, left bronchus or lung; T45.1X5A Adverse effect of antineoplastic and immunosuppressive drugs, initial encounter; I50.9 Heart failure, unspecified; I11.0 Hypertensive heart disease with heart failure; M17.0 Bilateral primary osteoarthritis of knee; J44.9 Chronic obstructive pulmonary disease, unspecified; I27.20 Pulmonary hypertension, unspecified; K21.9 Gastro-esophageal reflux disease without esophagitis; E78.2 Mixed hyperlipidemia; G89.4 Chronic pain syndrome; M79.7 Fibromyalgia; E66.9 Obesity, unspecified; F17.210 Nicotine dependence, cigarettes, uncomplicated; C79.70 Secondary malignant neoplasm of unspecified adrenal gland; G25.81 Restless legs syndrome; D75.1 Secondary polycythemia; R32 Unspecified urinary incontinence; F32.9 Major depressive disorder, single episode, unspecified; Z79.899 Other long term (current) drug therapy; Z79.82 Long term (current) use of aspirin; Z79.51 Long term (current) use of inhaled steroids; Z92.21 Personal history of antineoplastic chemotherapy; Z92.3 Personal history of irradiation
CPT/HCPCS: 36430; 36591; 80048; 83735; 84100; 85025; 85027; 86850; 86900; 86901; 86920; 86922; 87426; 94640; 96374; 99218; 99251; 99283; J7040; P9040; A4216; G0378; G0463

== ENCOUNTER 2021-08-27 08:00 | Outpatient (CLI) | payer MEDICARE, MEDICAID, SELFPAY ==
[2021-08-27 08:27] VITALS: BP 110/56; PULSE 114; RESP 18; TEMP 35.9; O2SAT 97; BMI 38.6
[2021-08-27 08:56] VITALS: BP 101/72; PULSE 101; RESP 18; TEMP 36.1; O2SAT 97
[2021-08-27 10:00] VITALS: BP 88/61; PULSE 63; RESP 16; TEMP 35.9; O2SAT 99
[2021-08-27 10:40] VITALS: BP 91/59; PULSE 52; RESP 16; TEMP 35.7; O2SAT 99
[2021-08-27] MEDS: 0.9% NaCl VAD Flush IV (10:51)
== END 2021-08-27 23:59 | disposition home or self-care (01) ==
PROVIDERS: PCP Family Medicine; Referring Provider Internal Medicine Hematology & Oncology; Visit Provider Internal Medicine Hematology & Oncology
DX: D64.81 Anemia due to antineoplastic chemotherapy (principal)
CPT/HCPCS: 36430; 86850; 86900; 86901; 86920; 86922; P9016; A4216

== ENCOUNTER 2021-09-19 07:56 | Outpatient (CLI) | payer MEDICARE, MEDICAID, SELFPAY ==
[2021-09-19] VITALS (9 sets, daily range): BP systolic 111–158; BP diastolic 62–80; PULSE 93–117; RESP 16–18; TEMP 36.1–36.3; O2SAT 3–99
[2021-09-19] MEDS: 0.9 % NaCl (Sterile) Posiflush 10 mL IV (08:05)
[2021-09-19] MEDS: 0.9% NaCl VAD Flush IV ×2 (11:43→13:58)
[2021-09-19] MEDS: Furosemide 20 MG/2 ML VIAL IV (11:43)
== END 2021-09-19 23:59 | disposition home or self-care (01) ==
LOC: MEDOUTP 07:56
PROVIDERS: PCP Family Medicine; Referring Provider Internal Medicine Hematology & Oncology; Visit Provider Internal Medicine Hematology & Oncology
DX: D64.81 Anemia due to antineoplastic chemotherapy (principal)
CPT/HCPCS: 36430; 86644; 86850; 86900; 86901; 86920; 86922; 86965; J7040; P9016; P9035; A4216; J1940

== ENCOUNTER 2021-10-14 10:21 | Outpatient (CLI) | payer MEDICARE, MEDICAID, SELFPAY ==
[2021-10-14] VITALS (7 sets, daily range): BP systolic 104–151; BP diastolic 74–90; PULSE 86–98; RESP 16–20; TEMP 35.7–36.4; O2SAT 99–100
[2021-10-14] MEDS: 0.9% NaCl VAD Flush IV ×3 (10:42→15:18)
[2021-10-14] MEDS: Furosemide 20 MG/2 ML VIAL IV (13:15)
== END 2021-10-14 23:59 | disposition home or self-care (01) ==
LOC: MEDOUTP 10:22
PROVIDERS: PCP Family Medicine; Referring Provider Internal Medicine Hematology & Oncology; Visit Provider Internal Medicine Hematology & Oncology
DX: D64.81 Anemia due to antineoplastic chemotherapy (principal)
CPT/HCPCS: 36430; 86850; 86900; 86901; 86920; 86922; J7040; P9016; A4216; J1940

== ENCOUNTER 2021-10-21 07:41 | Outpatient (CLI) | payer MEDICARE, MEDICAID, SELFPAY ==
[2021-10-21] MEDS: 0.9 % NaCl (Sterile) Posiflush 10 mL IV (08:04)
[2021-10-21] MEDS: 0.9% NaCl VAD Flush IV ×3 (08:04→14:31)
[2021-10-21 09:44] VITALS: BP 139/88; PULSE 91; RESP 18; TEMP 36.1; O2SAT 99
[2021-10-21 09:57] VITALS: BP 119/86; PULSE 86; RESP 18; TEMP 36.1; O2SAT 100
[2021-10-21 10:41] VITALS: BP 115/69; PULSE 88; RESP 16; TEMP 36.4
[2021-10-21 12:13] VITALS: BP 110/73; PULSE 87; RESP 16; TEMP 36.1; O2SAT 100
[2021-10-21] MEDS: Furosemide 20 MG/2 ML VIAL IV (12:20)
[2021-10-21 12:57] VITALS: BP 115/71; PULSE 83; RESP 16; TEMP 36.2; O2SAT 98
[2021-10-21 14:02] VITALS: BP 120/74; PULSE 90; RESP 16; TEMP 36.1; O2SAT 99
== END 2021-10-21 23:59 | disposition home or self-care (01) ==
LOC: MEDOUTP 07:42
PROVIDERS: PCP Family Medicine; Referring Provider Internal Medicine Hematology & Oncology; Visit Provider Internal Medicine Hematology & Oncology
DX: D64.81 Anemia due to antineoplastic chemotherapy (principal); T45.1X5A Adverse effect of antineoplastic and immunosuppressive drugs, initial encounter
CPT/HCPCS: 36430; 86850; 86900; 86901; 86920; 86922; 86965; J7040; P9016; P9035; A4216; J1940

== ENCOUNTER 2021-11-03 14:36 | Emergency (ER) | payer MEDICARE, MEDICAID, SELFPAY ==
[2021-11-03 14:37] VITALS: BP 126/87; PULSE 108; RESP 16; TEMP 36.7; O2SAT 96; BMI 38.7
--- NOTE | 2021-11-03 14:45 | RAD_ITS ---
STUDY: X-RAY CHEST REASON FOR EXAM: Female, 60 years old. Increasing shortness of breath. Patient is currently receiving chemotherapy. TECHNIQUE: AP and lateral views of the chest. COMPARISON: None. FINDINGS: A right-sided portacatheter is seen within the midportion of the superior vena cava. Hyperinflation. No acute pulmonary infiltrate is seen. There is no demonstrated pleural abnormality. Normal size heart. Normal mediastinum and minal. There is prominence of the pulmonary hilar arteries without peripheral pulmonary vascular congestion, suggesting pulmonary hypertension. Normal visualized aortic arch and descending thoracic aorta. There are diffuse degenerative changes of the visualized thoracic spine. Normal visualized ribs, clavicles, and shoulders. There is no demonstrated abnormality of the visualized soft tissue structures of the upper abdomen. RAD/Chest PA and Lateral IMPRESSION: Hyperinflation. No focal infiltrate is seen. Electronically Signed: David Bailon MD at 15:00 EDT ,
--- NOTE | 2021-11-03 16:52 | EKG12_ITS ---
Test Reason : SOB Blood Pressure : / mmHG Vent. Rate : 101 BPM Atrial Rate : 101 BPM P-R Int : 158 ms QRS Dur : 088 ms QT Int : 368 ms P-R-T Axes : 079 084 096 degrees QTc Int : 477 ms Sinus tachycardia Incomplete right bundle branch block T-wave abnormality: Consider IVCD effect; myocardial ischemia Abnormal ECG Confirmed by YISEL CONNOR, ANIL ([id number]), news video editor SABRINA MILLER ([id number]) on 11/05/2021 11:06:42 AM Referred By: DEMETRIS Confirmed By:ANIL MORILLO MD
--- NOTE | 2021-11-03 16:52 | EDS_ITS ---
HPI History of Present Illness Chief Complaint: Shortness of Breath Informant: patient Onset/Context/Timing Onset: Days Context: Gradual Onset Current Severity: Moderate Maximum Severity: Moderate Narrative Narrative: Patient presents secondary to increased shortness of breath. She is a history of lung cancer and is currently on chemotherapy, last treatment on October 31. Patient states since that last treatment she had increased shortness of breath with mild increase in dry cough. She has had chills. She complains of pain in her back but thinks it is the way she is sitting. No history of DVT or PE. [facility] Medical History Acute pain of both shoulders YEN positive Anemia Arthritis of both knees Cancer of lower lobe of left lung Carpal tunnel syndrome of left wrist CHF (congestive heart failure) Chronic obstructive pulmonary disease Chronic pain syndrome Combined hyperlipidemia Constipation Current use of proton pump inhibitor Elevated hemoglobin Essential hypertension Fibromyalgia Former smoker GERD (gastroesophageal reflux disease) History of chemotherapy HTN (hypertension) Hypoxia Insomnia Lipoma of buttock Low back pain Lumbar canal stenosis Lumbar facet arthropathy Lumbar foraminal stenosis Lung cancer Malignant neoplasm metastatic to adrenal gland Migraines Muscle spasm Obesity Palpitations Pericardial effusion Pulmonary hypertension RLS (restless legs syndrome) Seasonal allergies Secondary polycythemia Seizures Shortness of breath at rest Small cell lung cancer Systemic sclerosis with limited cutaneous involvement TIA (transient ischemic attack) Urge incontinence Vitamin D deficiency Home Medications albuterol sulfate [ProAir HFA] 2 puff INHALATION Q4H PRN PRN 04/07/18 [History Last Taken 03/03/21] atorvastatin 10 mg PO QHS 04/07/18 [History Last Taken 03/03/21] baclofen 20 mg PO DAILY 04/07/18 [History Last Taken 02/28/21] epinephrine 0.3 mg IM PRN PRN 04/07/18 [History Last Taken Unknown] gabapentin [Neurontin] 1,200 mg PO QHS 04/07/18 [History Last Taken 03/03/21] ibuprofen 800 mg PO DAILY 04/07/18 [History Last Taken 03/03/21] Trelegy Ellipta 1 inh INHALATION DAILY 03/04/21 [History Last Taken 03/03/21] bupropion HCl (smoking deter) 150 mg PO DAILY 03/04/21 [History Last Taken 03/04/21] cholecalciferol (vitamin D3) 50 mcg PO BID 03/04/21 [History Last Taken 03/04/21] guaifenesin [Mucinex] 600 mg PO BID 03/04/21 [History Last Taken 03/04/21] lidocaine-prilocaine 1 applic TOPICAL PRN PRN 03/04/21 [History Last Taken 03/04/21] omeprazole 40 mg PO DAILY 03/04/21 [History Last Taken 03/04/21] oxybutynin chloride 15 mg PO DAILY 03/04/21 [History Last Taken 03/04/21] promethazine 25 mg PO Q6H PRN 03/04/21 [History Last Taken 03/02/21] ropinirole 1 mg PO QHS 03/04/21 [History Last Taken 03/03/21] magnesium oxide 400 mg PO DAILY 11/03/21 [History Last Taken Unknown] Allergy/AdvReac Type Severity Reaction Status Date / Time bee venom protein (honey bee) Allergy Shortness Verified 11/03/21 14:40 of breath naproxen [From Aleve] AdvReac Rash Verified 11/03/21 14:40 Surgical History S/P pericardial window creation Social History housing: house number of children: 1 Smoking Status: Former smoker alcohol intake: never substance use type: does not use ROS ROS ED Constitutional Constitutional ED: Reports chills; Denies fever(s) Eyes Eyes: Denies change in vision ENT ENT ED: Denies sore throat Cardiovascular Cardiovascular: Denies chest pain Respiratory/Chest Respiratory/Chest: Reports cough and dyspnea; Denies sputum Gastrointestinal Gastrointestinal: Denies abdominal pain, diarrhea, nausea or vomiting Genitourinary Genitourinary ED: Denies dysuria Musculoskeletal Musculoskeletal: Reports back pain Integumentary Denies rash Neurologic Neurologic: Denies headache(s) or weakness Allergic/Immunologic Allergic/Immunologic ED: Denies urticaria EXAM Physical Exam Const Vital Signs: 11/03/21 14:37 11/03/21 17:32 11/03/21 17:46 Temperature 98.1 F Temperature Source Temporal Pulse Rate 108 H 101 H Respiratory Rate 16 16 Respiratory Effort Short of Breath Respiratory Depth Normal Respiratory Pattern Normal Blood Pressure 126/87 H 111/72 Blood Pressure Mean 100 85 Pulse Ox 96 100 Oxygen Delivery Method Nasal Cannula Nasal Cannula Nasal Cannula Oxygen Flow Rate (L/min) 4 4 4 11/03/21 18:28 11/03/21 19:44 11/03/21 21:10 Temperature Temperature Source Pulse Rate 102 H 103 H 102 H Respiratory Rate 16 18 16 Respiratory Effort Respiratory Depth Respiratory Pattern Blood Pressure 118/74 127/80 H 122/52 H Blood Pressure Mean 88 95 Pulse Ox 98 96 Oxygen Delivery Method Nasal Cannula Room Air Oxygen Flow Rate (L/min) 4 Positive well nourished and well developed General Appearance ED: well developed HEENT Reports moist mucous membranes Eyes PERRL and EOMs intact bilaterally Neck supple Chest Wall inspection of chest normal and palpation of chest normal Resp Resp Narrative: Mild tachypnea. Lung sounds clear. Cardio Rate: tachycardic GI non-tender Palpation: soft Extremity normal to inspection General Extremety ED: Negative for edema General Extremity: Negative for edema Neuro oriented x3 Sensorium / Orientation: alert Psych mental status grossly normal Skin no rashes or lesions noted MDM MDM MDM Narrative Medical decision making narrative: Patient placed on lunchroom monitor. EKG and lab work obtained. Chest x-ray ordered per nursing protocol from triage. Lab Data Attestation: I reviewed the patient's lab results. Labs: Laboratory Results - last 24 hr 11/03/21 11/03/21 11/03/21 17:14 17:14 17:14 WBC 4.9 RBC 2.58 L Hgb 8.0 L Hct 25.7 L MCV 99.6 H MCH 31.0 MCHC 31.1 L RDW Std Deviation 74.5 H RDW Coeff of Daren 21.5 H Plt Count 75 L MPV 11.4 Neut % (Auto) Not Reportable Absolute Neuts (auto) 4.1 Absolute Lymphs (auto) 0.69 L Total Counted 100 Neutrophils % (Manual) 75 H Band Neutrophils % 8 H Lymphocytes % (Manual) 14 L Monocytes % (Manual) 3 Nucleated RBCs/100 WBC 4 Diff Path Review May foll Platelet Estimate MOD DEC Polychromasia RARE Anisocytosis 1+ D-Dimer Quant (PE/DVT) 19.10 H* Sodium 137 Potassium 4.0 Chloride 102 Carbon Dioxide 25.0 Anion Gap 10 BUN 19 H Creatinine 0.98 Estim Creat Clear Calc 53.37 Est GFR (MDRD) Af Amer 75 Est GFR (MDRD) Non-Af 62 BUN/Creatinine Ratio 19.4 Glucose 84 Calcium 9.4 Troponin I High Sens 9 B-Natriuretic Peptide 11/03/21 11/03/21 17:14 19:32 WBC RBC Hgb Hct MCV MCH MCHC RDW Std Deviation RDW Coeff of Daren Plt Count MPV Neut % (Auto) Absolute Neuts (auto) Absolute Lymphs (auto) Total Counted Neutrophils % (Manual) Band Neutrophils % Lymphocytes % (Manual) Monocytes % (Manual) Nucleated RBCs/100 WBC Diff Path Review Platelet Estimate Polychromasia Anisocytosis D-Dimer Quant (PE/DVT) Sodium Potassium Chloride Carbon Dioxide Anion Gap BUN Creatinine Estim Creat Clear Calc Est GFR (MDRD) Af Amer Est GFR (MDRD) Non-Af BUN/Creatinine Ratio Glucose Calcium Troponin I High Sens 9 B-Natriuretic Peptide 16.5 Radiography Chest X-Ray - ED: 1 View, Read by ED Physician and Chronic Changes Diagnostic Testing: Clinical Impression(s) from Imaging Studies Chest X-Ray 11/03/21 14:45 IMPRESSION: Hyperinflation. No focal infiltrate is seen. Electronically Signed: David Bailon MD at 15:00 EDT , Chest CTA 11/03/21 18:22 IMPRESSION: undefined EKG Initial EKG: Attestation: I personally reviewed and interpreted this EKG as follows: Interpretation: Sinus Tachycardia (Sinus tach at 101. Anterior lateral T wave inversion with slight, [address] depression.) Follow-up EKG: Attestation: I personally reviewed and interpreted this EKG as follows: Interpretation: Sinus Rhythm (Sinus at 99. T wave inversion again noted throughout the anterior and lateral precordial leads. Minimal 1/2 mm to [address] depression.) Treatment and Re-Evaluation Narrative: Initial EKG obtained and reveals anterior lateral T wave inversions with slight ST depression. Repeat EKG obtained 15 minutes later and it is similar. I presented to the patient's bedside again and asked her about any chest pain. She denies this. She does complain of back pain but states it is in her low back and is unchanged from her baseline back pain. Lab work obtained. Hemoglobin is 8.0. Chemistry studies unremarkable. Initial troponin 9. BNP normal at 16.5. D-dimer elevated at 19.10. Chest x-ray per my interpretation reveals chronic changes. CTA of the chest obtained and reveals no evidence of PE or dissection. Previously known lung tumors are noted. Repeat evaluation patient states that she feels improved and is ready to go home. I spoke with Dr. Barker, her oncologist who sent her in for evaluation. We reviewed her test results. Patient is to call his office in the next day or 2 with an update on her symptoms. She is scheduled for another round of chemotherapy in 4 days. Discharge Plan Triage Chief Complaint: Shortness of Breath ED Provider: Kaitlin Julien Dx/Rx/DC Orders Clinical Impression: Dyspnea, Lung cancer Instructions: ED Dyspnea Prescriptions: No Action atorvastatin 10 MG tablet 10 mg PO QHS RF: 0 ibuprofen 800 MG tablet 800 mg PO DAILY RF: 0 gabapentin [Neurontin] 400 MG capsule 1,200 mg PO QHS RF: 0 baclofen 20 MG tablet 20 mg PO DAILY RF: 0 epinephrine 0.3 MG syringe 0.3 mg IM PRN PRN (Reason: Allergic Reaction) RF: 0 albuterol sulfate [ProAir HFA] 1 PUFF inhaler 2 puff inhalation Q4H PRN PRN (Reason: Sob &/Or Wheezing) RF: 0 lidocaine-prilocaine 2.5-2.5 % Cream 1 applic topical PRN PRN (Reason: Pain) RF: 0 promethazine 25 mg Tablet 25 mg PO Q6H PRN (Reason: Nausea) RF: 0 cholecalciferol (vitamin D3) 50 mcg (2,000 unit) Tablet 50 mcg PO BID RF: 0 Trelegy Ellipta 100-62.5-25 mcg Blister With Device 1 inh INHALATION DAILY RF: 0 oxybutynin chloride 15 mg tablet extended release 24hr 15 mg PO DAILY RF: 0 omeprazole 40 mg capsule,delayed release(DR/EC) 40 mg PO DAILY RF: 0 ropinirole 2 mg tablet 1 mg PO QHS RF: 0 guaifenesin [Mucinex] 600 mg tablet extended release 12hr 600 mg PO BID RF: 0 bupropion HCl (smoking deter) 150 mg tablet extended release 12 hr 150 mg PO DAILY RF: 0 magnesium oxide 400 mg (241.3 mg magnesium) tablet 400 mg PO DAILY RF: 0 Primary Care Provider: Tex Martínez Referrals: Tex Martínez MD [Primary Care Provider] - Grzegorz Barker DO [STAFF PHYSICIAN] - 3-5 Days if not improving Disposition Disposition: Home, Self Care Discharge Date/Time: 11/03/21 21:21
--- NOTE | 2021-11-03 17:23 | EKG12_ITS ---
Test Reason : REPEAT Blood Pressure : / mmHG Vent. Rate : 099 BPM Atrial Rate : 099 BPM P-R Int : 158 ms QRS Dur : 088 ms QT Int : 372 ms P-R-T Axes : 079 083 097 degrees QTc Int : 477 ms Normal sinus rhythm Incomplete right bundle branch block Nonspecific T wave abnormality: consider IVCD effect; myocardial ischemia Septal infarct, age undetermined, cannot be excluded Abnormal ECG Confirmed by YISEL CONNOR, ANIL ([id number]), publication editor SABRINA MILLER ([id number]) on 11/05/2021 11:08:40 AM Referred By: DEMETRIS Confirmed By:ANIL MORILLO MD
[2021-11-03 17:27] LABS: Hematocrit 25.7 % (37-47); Mean Corp Hgb Conc 31.1 g/dL (32-36); Mean Corpuscular Volume 99.6 fL (81-99); Mean Platelet Vol. 11.4 fl (6.2-12.0); POSITIVE COUNT YES; POSITIVE DIFFERENTIAL YES; POSITIVE MORPHOLOGY YES; Platelet Count 75 K/mm3 (150-450); RBC Distribution Width CV 21.5 % (11.6-14.6); RBC Distribution Width SD 74.5 fl (35.1-43.9); Red Blood Count 2.58 M/mm3 (4.2-5.4); White Blood Count 4.9 K/mm3 (4.4-11.0)
[2021-11-03] MEDS: Ondansetron 4 MG/2 ML Vial IV (17:31)
[2021-11-03 17:32] VITALS: O2SAT 99
[2021-11-03 17:40] LABS: BNP,B-Type NATRIURETIC PEPTIDE 16.5 pg/mL (0-100)
[2021-11-03 17:43] LABS: Anion Gap 10 (5-15); BUN 19 mg/dL (7-18); BUN/Creat Ratio 19.4 RATIO (10-20); Calcium,Total 9.4 mg/dL (8.5-10.1); Chloride 102 mmol/L (98-107); Creatinine, Serum 0.98 mg/dL (0.55-1.02); EST Glomerular Filtration Rate 62 mL/min (>60); Est Glom Filt Rate - Afr Amer 75 mL/min (>60); Estimated Creatinine Clearance 53.37 ml/min; Glucose 84 mg/dL (74-106); Sodium Level 137 mmol/L (136-145); Troponin-I HS 9 pg/mL (3.0-54.0)
[2021-11-03 17:46] VITALS: BP 111/72; PULSE 101; RESP 16; O2SAT 100
[2021-11-03 17:58] LABS: Differential Indicated MANUAL DIFF
--- NOTE | 2021-11-03 18:22 | CT_ITS ---
STUDY: CTA CHEST REASON FOR EXAM: Female, 60 years old. sob, elevated d-dimer RADIATION DOSAGE (If Supplied By Facility): CTDIvol = ( 11.47 ) mGy, DLP = ( 579.83 ) mGycm TECHNIQUE: The examination was performed with the intravenous administration of IV 100mL Isovue-370. Post-processing of the angiographic images was performed, with multiplanar reformation and 3D reconstruction. Individualized dose optimization techniques were used for this CT. COMPARISON: None. FINDINGS: Tubes and lines: 1. RIGHT IJ Port-A-Cath is noted normal position.. CTA: PULMONARY ARTERIES: There is normal configuration and contrast opacification of pulmonary outflow tract, main pulmonary arteries, segmental and intersegmental pulmonary arteries bilaterally without evidence of intraluminal filling defects. AORTIC ARCH: The aortic arch and descending aorta have normal configuration. No evidence of dissection or aneurysmal dilatation. HEART: Cardiac contour is normal. No evidence pericardial effusion. CT CHEST: LUNGS: [Subtle areas of interstitial prominence bilaterally. There is however focal area of density density consistent with a mass within the LEFT lower lobe, measuring approximately 2.2 x 2.8 cm in size noted within the superior segment of the LEFT lower lobe. There is additional area of spiculated density within the RIGHT upper lobe, measuring approximately 9 x 10 mm (series 2: Image 205). No consolidation noted. PLEURAL SPACES: Unremarkable, no effusion or pneumothorax.. MEDIASTINUM AND LYMPH NODES: Unremarkable. No significant adenopathy. BONES: Unremarkable ABDOMEN: There is prominent mass lesion at the level of the LEFT adrenal gland, measuring approximately 4.2 x 3.2 cm, and mass lesion in the RIGHT adrenal gland measuring 2.4 x 3.4 cm. Other: None IMPRESSIONS: 1. No CTA evidence of pulmonary embolism. 2. No CTA evidence of aortic aneurysm or dissection 3. Normal CT appearance of the heart and pericardium. 4. Mass lesion within the superior segment of the LEFT lower lobe, and a smaller density/mass/neoplasm within the RIGHT upper lobe which may represent sequelae of metastatic disease. 5. Bilateral adrenal masses suspicious of metastatic disease. Electronically Signed: Gene Caba MD at 19:43 EDT , CT/CTA Chest W/WO Contrast IMPRESSION: undefined
[2021-11-03 18:28] VITALS: BP 118/74; PULSE 102; RESP 16; O2SAT 98
[2021-11-03 18:29] LABS: Lymphocyte 14 % (19-41); Monocyte 3 % (0-10); Neutrophil-Band 8 % (0-5); Neutrophil-Segmented 75 % (47-70); Nucleated Red Bld Cells,Manual 4 % (0-5); Total Cells Counted 100 (MANUAL DIFF)
[2021-11-03 18:30] LABS: Anisocytosis 1+; Polychromasia RARE
[2021-11-03 18:31] LABS: Platelet Estimate MOD DEC (ADEQ)
[2021-11-03 18:32] LABS: Absolute Lymphocyte Count 0.69 X10^3/uL (0.83-4.51); Absolute Neutrophil Count 4.1 X10^3/uL (2.0-7.7)
[2021-11-03 19:44] VITALS: BP 127/80; PULSE 103; RESP 18; O2SAT 96
[2021-11-03 20:14] LABS: Troponin-I HS 9 pg/mL (3.0-54.0)
[2021-11-03 21:10] VITALS: BP 122/52; PULSE 102; RESP 16
[2021-11-04 11:30] LABS: Pathologist Review Reviewed
== END 2021-11-03 21:21 | disposition home or self-care (01) ==
PROVIDERS: Emergency Provider Emergency Medicine; PCP Family Medicine; Visit Provider Emergency Medicine
DX: R06.00 Dyspnea, unspecified (principal); C34.90 Malignant neoplasm of unspecified part of unspecified bronchus or lung; J44.9 Chronic obstructive pulmonary disease, unspecified; I11.0 Hypertensive heart disease with heart failure; I50.9 Heart failure, unspecified; E78.2 Mixed hyperlipidemia; Z79.899 Other long term (current) drug therapy; M17.0 Bilateral primary osteoarthritis of knee; G89.4 Chronic pain syndrome; Z87.891 Personal history of nicotine dependence
CPT/HCPCS: 36591; 71046; 71275; 80048; 83880; 84484; 85025; 85379; 87428; 93005; 96374; 99283; Q9967; A4216; J2405

== ENCOUNTER → 2021-11-10 | Outpatient (CLI) | payer MEDICARE, MEDICAID, SELFPAY ==
[2021-11-10] VITALS (7 sets, daily range): BP systolic 109–147; BP diastolic 68–83; PULSE 96–106; RESP 16–18; TEMP 36.1–36.6; O2SAT 98–100
[2021-11-10] MEDS: 0.9% NaCl VAD Flush IV ×2 (08:30→13:35)
[2021-11-10] MEDS: Furosemide 20 MG/2 ML VIAL IV (10:59)
== END | disposition home or self-care (01) ==
LOC: MEDOUTP 08:16
PROVIDERS: PCP Family Medicine; Referring Provider Internal Medicine Hematology & Oncology; Visit Provider Internal Medicine Hematology & Oncology
DX: D64.81 Anemia due to antineoplastic chemotherapy (principal)
CPT/HCPCS: 36430; 86850; 86900; 86901; 86920; 86922; J7040; P9016; A4216; J1940

== ENCOUNTER → 2021-11-27 | Outpatient (CLI) | payer MEDICARE, MEDICAID, SELFPAY ==
[2021-11-27 08:32] VITALS: BP 82/41; PULSE 100; RESP 18; TEMP 36; O2SAT 97; BMI 47.0
[2021-11-27] MEDS: 0.9 % NaCl (Sterile) Posiflush 10 mL IV (08:47)
[2021-11-27 09:08] VITALS: BP 83/57; PULSE 101; RESP 20; TEMP 35.8; O2SAT 100
[2021-11-27 10:08] VITALS: BP 101/78; PULSE 98; RESP 18; TEMP 35.7; O2SAT 100
[2021-11-27 10:46] VITALS: BP 107/77; PULSE 99; RESP 18; TEMP 36.1; O2SAT 100
[2021-11-27] MEDS: Furosemide 20 MG/2 ML VIAL IV (10:56)
[2021-11-27] MEDS: 0.9% NaCl VAD Flush IV ×2 (10:56→13:43)
[2021-11-27 11:38] VITALS: BP 113/69; BP 113/78; PULSE 100; PULSE 94; RESP 16; RESP 18; TEMP 35.6; TEMP 36; O2SAT 100; O2SAT 96
[2021-11-27 12:42] VITALS: BP 107/71; PULSE 97; TEMP 35.3; O2SAT 97
== END | disposition home or self-care (01) ==
LOC: MEDOUTP 08:21
PROVIDERS: PCP Family Medicine; Referring Provider Internal Medicine Hematology & Oncology; Visit Provider Internal Medicine Hematology & Oncology
DX: D64.81 Anemia due to antineoplastic chemotherapy (principal)
CPT/HCPCS: 36430; 86850; 86900; 86901; 86920; 86922; J7040; P9016; A4216; J1940